=== PATIENT | female | born 1965 | race Caucasian/White ===

== ENCOUNTER 2017-01-05 11:17 | Observation (INO) | payer OTHER ==
[~2017-01-05] VITALS: Ht 165.1 cm; Wt 78.0 kg
[2017-01-05] VITALS (8 sets, daily range): BP systolic 121–179; BP diastolic 71–113; PULSE 90–153; RESP 16–26; TEMP 97.7–98.1; O2SAT 95–99
[~2017-01-05 11:17] MED LIST: ASPI-99 PO; ATOR80TA41 PO; LISI2.5T55 PO; METO25CR PO; NITR.4 SL
[2017-01-05] MEDS ORDERED: ASPIRIN 325 MG TAB PO ONE (11:30)
[2017-01-05] MEDS ORDERED: SODIUM CHLORIDE 0.9% FLUSH 10 ML FLUSH IVF PRN (11:30)
[2017-01-05] MEDS ORDERED: NITROGLYCERIN 0.4 MG SL 25 TABS/BTL SL ONE (11:45)
--- NOTE | 2017-01-05 12:18 | RADRPT ---
EXAM DATE/TIME: 01/05/2017 11:41 [facility] COMPARISON: CHEST SINGLE AP, February 09, 2013, 0:58. INDICATIONS : Chest pain. MEDICAL HISTORY : Hypertension. SURGICAL HISTORY : Coronary artery stent. ENCOUNTER: Initial ACUITY: 2 days PAIN SCORE: 6/10 LOCATION: Left upper chest FINDINGS: A single view of the chest demonstrates the lungs to be symmetrically aerated without evidence of mas s, infiltrate or effusion. The cardiomediastinal contours are unremarkable. Osseous structures are intact. CONCLUSION: 1. No acute cardiopulmonary findings Xavier Kellogg MD on January 05, 2017 at 12:15 Board Certified Radiologist. This report was verified electronically.
--- NOTE | 2017-01-05 12:19 | PD ---
HPI Chief Complaint: Chest Pain Time Seen by Provider: 12:16 Travel History International Travel<30 days: No Contact w/Intl Traveler<30days: No Traveled to known affect area: No History of Present Illness HPI 51-year-old female that presents to the ED for evaluation of left-sided chest pain. Per patient she's had this for the past 2 days. Per patient the pain started the last couple days and his been on and off. Per patient last and for now and then he went better. Per patient today the pain started around 3:00 this morning and his been unrelenting since. She has not seen her doctor for this but she follows with Dr. Wallace for cardiology. Per patient she had an evaluation by him last year and everything was fine. She does have a history of HI on herself. No history of smoking. History of high blood pressure and patient currently taking statins for cholesterol. Patient also takes an aspirin every day. She has not taken any nitroglycerin or aspirin today. Per patient the pain is sharp and pressure-like. Nothing makes it better or worse. Patient does have some shortness of breath and diaphoresis. Per patient he feels very similar to her previous HI. She came here today mainly because the pain has not gone away as the previous pain she had before this episode since 2: 00 in the morning. Allergy to penicillin. Pain is 7 out of 10. PFSH Past Medical History Hx Anticoagulant Therapy: Yes (BABY ASPIRIN ) Asthma: No Blood Disorders: No Heart Rhythm Problems: No Cancer: No Cardiac Catheterization: Yes Cardiovascular Problems: Yes (HTN , STENT , CAD ) High Cholesterol: Yes Chest Pain: Yes Congestive Heart Failure: No COPD: No Coronary Artery Disease: Yes Diabetes: No Diminished Hearing: No Endocrine: No Genitourinary: No Hypertension: Yes Immune Disorder: No Musculoskeletal: No Neurologic: No Psychiatric: No Reproductive: No Respiratory: No Myocardial Infarction: Yes Sleep Apnea: No Menopausal: Yes Past Surgical History Cardiac Surgery: Yes (CARDIAC CATH) Section: Yes (X 1) Coronary Stent: Yes Gynecologic Surgery: Yes () Other Surgery: Yes (C SECTION, STENT) Social History Alcohol Use: Yes (EVERY 2 WEEKS) Tobacco Use: Yes (2 CIG PER DAY) Substance Use: No Allergies-Medications (Allergen,Severity, Reaction): Coded Allergies: Penicillin (Verified Allergy, Unknown, UNKNOWN, 02/09/13) Reported Meds & Prescriptions Reported Meds & Active Scripts Active Reported Lipitor 80 Mg Tab (Atorvastatin) 80 Mg Tab 80 Mg PO DAILY Aspirin 81 Mg Tab 81 Mg PO DAILY Nitroglycerin 0.4 Mg Subl 0.4 Mg SL DIRECTED PRN Metoprolol Succinate Er (Metoprolol Succinate) 25 Mg Tab 50 Mg PO BID Lisinopril 2.5 Mg Tab 2.5 Mg PO DAILY Review of Systems Except as stated in HPI: all other systems reviewed are Neg Physical Exam Narrative GENERAL: SKIN: Warm and dry. HEAD: Atraumatic. Normocephalic. EYES: Pupils equal and round. No scleral icterus. No injection or drainage. ENT: No nasal bleeding or discharge. Mucous membranes pink and moist. Tongue is midline. No uvula deviation. NECK: Trachea midline. No JVD. CARDIOVASCULAR: Regular rate and rhythm. No murmurs, S3, S4. Chest pain is not reproducible with touch. RESPIRATORY: No accessory muscle use. Clear to auscultation. Breath sounds equal bilaterally. GASTROINTESTINAL: Abdomen soft, non-tender, nondistended. Hepatic and splenic margins not palpable. MUSCULOSKELETAL: Extremities without clubbing, cyanosis, or edema. No obvious deformities. Full range of motion of the upper and lower extremities bilaterally. 2+ pulses bilaterally. NEUROLOGICAL: Awake and alert. No obvious cranial nerve deficits. Motor grossly within normal limits. Five out of 5 muscle strength in the arms and legs. Normal speech. PSYCHIATRIC: Appropriate mood and affect; insight and judgment normal. Data Data Last Documented VS Vital Signs Date Time Temp Pulse Resp B/P Pulse Ox O2 Delivery O2 Flow Rate FiO2 01/05/17 12:07 165/85 129/82 01/05/17 11:48 90 16 98 Room Air 01/05/17 11:20 97.7 Orders Electrocardiogram (01/05/17 11:26) Basic Metabolic Panel (Bmp) (01/05/17 11:26) B-Type Natriuretic Peptide (01/05/17 11:26) Ckmb (Isoenzyme) Profile (01/05/17 11:26) Complete Blood Count With Diff (01/05/17 11:26) Magnesium (Mg) (01/05/17 11:26) Prothrombin Time / Inr (Pt) (01/05/17 11:26) Act Partial Throm Time (Ptt) (01/05/17 11:26) Troponin I (01/05/17 11:26) Chest, Single Ap (01/05/17 11:26) Ecg Monitoring (01/05/17 11:26) Bilateral Bp Monitoring (01/05/17 11:26) Iv Access Insert/Monitor (01/05/17 11:26) Oximetry (01/05/17 11:26) Oxygen Administration (01/05/17 11:26) Aspirin (Aspirin) (01/05/17 11:30) Sodium Chloride 0.9% Flush (Ns Flush) (01/05/17 11:30) Nitroglycerin Sl (Nitrostat Sl) (01/05/17 11:45) Morphine Inj (Morphine Inj) (01/05/17 12:45) Ondansetron Inj (Zofran Inj) (01/05/17 12:45) Admit Order (Ed Use Only) (01/05/17 13:09) Labs Laboratory Tests Test 01/05/17 11:50 White Blood Count 9.3 TH/MM3 Red Blood Count 4.67 MIL/MM3 Hemoglobin 14.9 GM/DL Hematocrit 43.5 % Mean Corpuscular Volume 93.2 FL Mean Corpuscular Hemoglobin 31.9 PG Mean Corpuscular Hemoglobin 34.3 % Concent Red Cell Distribution Width 13.1 % Platelet Count 267 TH/MM3 Mean Platelet Volume 8.2 FL Neutrophils (%) (Auto) 60.7 % Lymphocytes (%) (Auto) 26.8 % Monocytes (%) (Auto) 9.1 % Eosinophils (%) (Auto) 2.8 % Basophils (%) (Auto) 0.6 % Neutrophils # (Auto) 5.7 TH/MM3 Lymphocytes # (Auto) 2.5 TH/MM3 Monocytes # (Auto) 0.9 TH/MM3 Eosinophils # (Auto) 0.3 TH/MM3 Basophils # (Auto) 0.1 TH/MM3 CBC Comment DIFF FINAL Differential Comment Prothrombin Time 10.9 SEC Prothromb Time International 1.0 RATIO Ratio Activated Partial 28.0 SEC Thromboplast Time Sodium Level 137 MEQ/L Potassium Level 4.2 MEQ/L Chloride Level 103 MEQ/L Carbon Dioxide Level 27.4 MEQ/L Anion Gap 7 MEQ/L Blood Urea Nitrogen 10 MG/DL Creatinine 0.68 MG/DL Estimat Glomerular Filtration 91 ML/MIN Rate Random Glucose 100 MG/DL Calcium Level 9.2 MG/DL Magnesium Level 1.9 MG/DL Total Creatine Kinase 99 U/L Troponin I LESS THAN 0.02 NG/ML B-Type Natriuretic Peptide 6 PG/ML MDM Medical Decision Making Medical Screen Exam Complete: Yes Emergency Medical Condition: Yes Medical Record Reviewed: Yes Interpretation(s) EKG shows sinus rhythm with no sign of acute ischemia or arrythmia CBC & BMP Diagram 01/05/17 11:50 BNP WNL Troponin and CKMB negative Last Impressions Chest X-Ray 01/05/17 1126 Signed Impressions: Service Date/Time: Thursday, January 05, 2017 11:41 - CONCLUSION: 1. No acute cardiopulmonary findings Xavier Kellogg MD Differential Diagnosis Chest pain versus a typical chest pain versus ACS versus a typical chest pain versus acute on chronic pain Narrative Course 51-year-old female that presents to the ED for evaluation of chest pain. Patient was properly examined and was found to have signs and symptoms of unclear etiology. Patient does partially have multiple risk factors for ACS including previous history. Labs and imaging ordered. Patient was given aspirin as well as nitroglycerin here. Labs and imaging showed no sign of acute disease. Patient was reassured. Patient feels improvement of her pain after medications given. Case was discussed with Dr. Wallace who recommends admission to the chest pain center. Patient was admitted chest pain center. Patient agrees with this plan. Diagnosis Primary Impression: Chest pain in adult Iam Wharton Jan 05, 2017 12:19
[2017-01-05 12:26] LABS: AUTOMATED NEUTROPHIL # 5.7 TH/MM3 (1.8-7.7); BASOPHIL # 0.1 TH/MM3 (0-0.2); BASOPHIL % 0.6 % (0.0-2.0); EOSINOPHIL # 0.3 TH/MM3 (0-0.4); EOSINOPHIL % 2.8 % (0.0-4.0); HEMATOCRIT 43.5 % (35.0-46.0); HEMO FLAGS DIFF FINAL; LYMPH % 26.8 % (9.0-44.0); LYMPHOCYTE # 2.5 TH/MM3 (1.0-4.8); MEAN CELL VOLUME 93.2 FL (80.0-100.0); MEAN CORPUSCULAR HEMOGLOBIN 31.9 PG (27.0-34.0); MEAN CORPUSCULAR HGB CONC 34.3 % (32.0-36.0); MONO % 9.1 % (0.0-8.0); NEUT % 60.7 % (16.0-70.0); PLATELET COUNT 267 TH/MM3 (150-450); RED BLOOD COUNT 4.67 MIL/MM3 (4.00-5.30); RED CELL DISTRIBUTION WIDTH 13.1 % (11.6-17.2); WHITE BLOOD COUNT 9.3 TH/MM3 (4.0-11.0)
[2017-01-05 12:35] LABS: PROTHROMBIN TIME - PATIENT 10.9 SEC (9.8-11.6)
[2017-01-05] MEDS ORDERED: ONDANSETRON HCL 4 MG/2 ML VIAL IV PUSH ONE (12:45)
[2017-01-05] MEDS ORDERED: MORPHINE SULFATE 4 MG/ML INJ IV PUSH ONE (12:45)
[2017-01-05 12:51] LABS: ANION GAP 7 MEQ/L (5-15)
[2017-01-05 12:57] LABS: BICARBONATE 27.4 MEQ/L (21.0-32.0); BLOOD UREA NITROGEN 10 MG/DL (7-18); CHLORIDE 103 MEQ/L (98-107); CREATINE KINASE 99 U/L (26-192); GLOMERULAR FILTRATION RATE 91 ML/MIN (>89); MAGNESIUM 1.9 MG/DL (1.5-2.5); POTASSIUM 4.2 MEQ/L (3.5-5.1); SODIUM (NA) 137 MEQ/L (136-145)
[2017-01-05] MEDS ORDERED: SODIUM CHLORIDE 0.9% FLUSH 5 ML FLUSH IVF PRN (14:15)
[2017-01-05] MEDS ORDERED: ALPRAZolam 0.25 MG TAB PO PRN (14:15)
[2017-01-05] MEDS ORDERED: ACETAMINOPHEN 500 MG CPLT PO PRN (14:15)
[2017-01-05] MEDS ORDERED: ONDANSETRON HCL 4 MG/2 ML VIAL IV PRN (14:15)
[2017-01-05] MEDS ORDERED: ACETAMINOPHEN/HYDROcodone 325 MG/7.5 MG TAB PO PRN (14:15)
[2017-01-05] MEDS ORDERED: METO50TA PO (14:36)
[2017-01-05] MEDS ORDERED: LISI2.5T3 PO (14:36)
[2017-01-05] MEDS ORDERED: PILL SPLITTER OTHER PRN (15:00)
--- NOTE | 2017-01-05 15:07 | HHI.HP ---
HPI Primary Care Physician Non-Staff Chief Complaint Chest pain History of Present Illness This is a 51-year-old female with history of CAD and stenting September 2010 with a complaint of chest discomfort. She states that for the last 2 days she has had intermittent central chest pressure. This is not exertional. She found nothing to bring on. The discomfort would last bout 1 hour but would recur about every 1-2 hours over the last 2 days. The discomfort woke her up at 3:00 this morning and has been constant since. The worse level was about 6-8 out of 10. She had shortness of breath. No nausea or diaphoresis. She states she was given sublingual nitroglycerin in the ED and after the second dose was starting to feel better. Currently the discomfort is about a 1-2 out of 10. She is concerned saying it feels similar to when she had a myocardial infarction in 2010. She states she has been compliant with all her medications. She is still smoking. She follows Dr. Mert Wallace of cardiology and believes her last stress test was a few years ago. She states that that was normal. Denies recent illnesses. Denies fevers or chills. Denies recent travel. Review of Systems General: Patient denies fevers, chills recent, and recent travel. HEENT: Patient denies headache, sore throat, difficulty swallowing. Cardiovascular: Has the chest discomfort as mentioned above. Denies sensation of heart beating rapidly or irregularly. No syncope. Denies diaphoresis. Respiratory: She has been a little short of breath. Denies Inspirational chest discomfort. Denies coughing wheezing or hemoptysis. GI: Patient denies nausea, vomiting, diarrhea, abdominal pain, bloody stools. Musculoskeletal: Patient denies joint pain or edema. Denies calf pain or edema. Neurovascular: Patient denies numbness, tingling, weakness in extremities. Denies headache. Endocrine: Denies polyuria and polydipsia. Hematologic: Denies easy bruising. Skin: Denies rash or itching. Past Family Social History Allergies: Coded Allergies: Penicillin (Verified Allergy, Unknown, UNKNOWN, 02/09/13) Past Medical History Coronary artery disease with a myocardial infarction September 29, 2010 with stenting of the RCA. Hypertension, hyperlipidemia, tobacco abuse. Denies diabetes Past Surgical History Cardiac catheterization with stenting of the RCA. There is moderate disease of the LAD. . Reported Medications Reported Meds & Active Scripts Active Reported Lisinopril 2.5 Mg Tab 2.5 Mg PO HS Metoprolol Tartrate 50 Mg Tab 50 Mg PO BID Lipitor 80 Mg Tab (Atorvastatin) 80 Mg Tab 80 Mg PO DAILY Aspirin 81 Mg Tab 81 Mg PO DAILY Nitroglycerin Tab 0.4 Mg Sl (Nitroglycerin) 0.4 Mg Subl 0.4 Mg SL DIRECTED PRN Active Ordered Medications Current Medications Medications (Trade) Dose Ordered Sig/Nelda Route Start Time Stop Time Status Last Admin (NS Flush) 2 ml UNSCH PRN IVF 01/05/17 14:15 (NS Flush) 2 ml BID IVF 01/05/17 21:00 (Tylenol) 500 mg Q4H PRN PO 01/05/17 14:15 (Flaxton 7.5-325 Mg) 1 tab Q4H PRN PO 01/05/17 14:15 (Zofran Inj) 4 mg Q6H PRN IV 01/05/17 14:15 (Protonix) 40 mg DAILY PO 01/05/17 14:15 (Aspirin) 325 mg DAILY PO 01/06/17 09:00 (Xanax) 0.25 mg Q8H PRN PO 01/05/17 14:15 (Nitroglycerin 2% Oint) 1 inch Q6HR TOPICAL 01/05/17 14:30 (Lipitor) 80 mg DAILY PO 01/06/17 09:00 (Lopressor) 50 mg BID PO 01/05/17 21:00 (Prinivil) 2.5 mg HS PO 01/05/17 21:00 (Pill Splitter) 1 ea UNSCH PRN OTHER 01/05/17 15:00 Family History There is family history of CAD with her brother. He has a stent. Social History Patient is smoking about 1/4 pack of cigarettes daily for about 30 years. Physical Exam Vital Signs Vital Signs Date Time Temp Pulse Resp B/P Pulse Ox O2 Delivery O2 Flow Rate FiO2 01/05/17 12:07 165/85 129/82 01/05/17 11:48 90 16 165/85 98 Room Air 01/05/17 11:48 98 Room Air 01/05/17 11:48 98 Room Air 01/05/17 11:20 97.7 102 26 179/113 99 Physical Exam GENERAL: This is a well-nourished, well-developed patient, in no apparent distress. Patient speaks in clear complete sentences. Patient is pleasant. There is family at the bedside. HEENT: Head is atraumatic and normocephalic. Neck is supple without lymphadenopathy and trachea is midline. No JVD or carotid bruits. CARDIOVASCULAR: Regular rate and rhythm without murmurs, gallops, or rubs. RESPIRATORY: Clear to auscultation. Breath sounds equal bilaterally. No wheezes , rales, or rhonchi. Chest wall is nontender. No use of accessory muscles. GASTROINTESTINAL: Abdomen is nontender, nondistended. Abdomen soft. No obvious pulsatile mass or bruit. No CVA tenderness. Strong femoral pulses bilaterally. Normal bowel sounds in all quadrants. MUSCULOSKELETAL: Patient is moving upper and lower extremities freely. No calf tenderness or edema, no Homans sign. Strong pulses in upper and lower extremities. NEUROLOGICAL: Patient is alert and oriented. Cranial nerves 2-12 are grossly intact. No focal deficits and speech is clear. SKIN: No rash and turgor is normal. Laboratory Laboratory Tests Test 01/05/17 11:50 White Blood Count 9.3 Red Blood Count 4.67 Hemoglobin 14.9 Hematocrit 43.5 Mean Corpuscular Volume 93.2 Mean Corpuscular Hemoglobin 31.9 Mean Corpuscular Hemoglobin 34.3 Concent Red Cell Distribution Width 13.1 Platelet Count 267 Mean Platelet Volume 8.2 Neutrophils (%) (Auto) 60.7 Lymphocytes (%) (Auto) 26.8 Monocytes (%) (Auto) 9.1 Eosinophils (%) (Auto) 2.8 Basophils (%) (Auto) 0.6 Neutrophils # (Auto) 5.7 Lymphocytes # (Auto) 2.5 Monocytes # (Auto) 0.9 Eosinophils # (Auto) 0.3 Basophils # (Auto) 0.1 CBC Comment DIFF FINAL Differential Comment Prothrombin Time 10.9 Prothromb Time International 1.0 Ratio Activated Partial 28.0 Thromboplast Time Sodium Level 137 Potassium Level 4.2 Chloride Level 103 Carbon Dioxide Level 27.4 Anion Gap 7 Blood Urea Nitrogen 10 Creatinine 0.68 Estimat Glomerular Filtration 91 Rate Random Glucose 100 Calcium Level 9.2 Magnesium Level 1.9 Total Creatine Kinase 99 Troponin I LESS THAN 0.02 B-Type Natriuretic Peptide 6 Result Diagram: 01/05/17 1150 01/05/17 1150 Imaging Last 48 hours Impressions Chest X-Ray 01/05/17 1126 Signed Impressions: Service Date/Time: Thursday, January 05, 2017 11:41 - CONCLUSION: 1. No acute cardiopulmonary findings Xavier Kellogg MD Course Initial EKG is sinus rhythm rate of [address] segment depressions or elevations. Assessment and Plan Assessment and Plan * Chest pain: Patient does it history of CAD and has had a stent in 2010. She will continue to have serial cardiac enzymes and EKGs for ruling out purposes. Patient has been seen by Dr. Mert Wallace of cardiology in the chest pain center. She will likely have a nuclear ETT in the morning if she rules out. We will start nitroglycerin ointment. We will continue her medications. * Hypertension: Continue current medication. * Hyperlipidemia: Continue current medication. * CAD: This will be reassessed for stress testing likely. * Tobacco abuse: Patient has been counseled on importance of smoking cessation. Patient is stable at this time. She is agreeable to this plan. Orlando Doe Jan 05, 2017 15:07 [place] Doe Jan 05, 2017 15:07
[2017-01-05 16:32] LABS: CREATINE KINASE 85 U/L (26-192)
[2017-01-05] MEDS: NITROGLYCERIN 2% OINT 1 GM PACKET TOPICAL SCH ×2 (18:00→20:12)
--- NOTE | 2017-01-05 18:18 | EKG ---
Date Performed: 01/05/2017 Time Performed: 11:32:57 PTAGE: 51 years EKG: Sinus rhythm NORMAL ECG NO PREVIOUS TRACING DOCTOR: Ray Nash Interpretating Date/Time 01/05/2017 18:16:50
[2017-01-05 19:04] LABS: CREATINE KINASE 78 U/L (26-192)
[2017-01-05] MEDS ORDERED: LISINOPRIL 5 MG TAB PO SCH (21:00)
[2017-01-05] MEDS: SODIUM CHLORIDE 0.9% FLUSH 5 ML FLUSH IVF SCH (21:00)
[2017-01-05] MEDS: METOPROLOL TARTRATE 50 MG TAB PO SCH (21:14)
[2017-01-05] MEDS ORDERED: MORPHINE SULFATE 4 MG/ML INJ IV PUSH PRN (22:30)
[2017-01-06] VITALS (7 sets, daily range): BP systolic 119–124; BP diastolic 67–79; PULSE 79–90; RESP 16–18; TEMP 97.9–98.4; O2SAT 95–97
[2017-01-06] MEDS: NITROGLYCERIN 2% OINT 1 GM PACKET TOPICAL SCH ×2 (06:00)
[2017-01-06] MEDS: METOPROLOL TARTRATE 50 MG TAB PO SCH ×2 (07:53→11:43)
[2017-01-06 08:34] LABS: CREATINE KINASE 68 U/L (26-192)
[2017-01-06] MEDS: ATORVASTATIN 80 MG TAB PO SCH ×2 (09:00→11:44)
[2017-01-06] MEDS: SODIUM CHLORIDE 0.9% FLUSH 5 ML FLUSH IVF SCH (09:00)
[2017-01-06] MEDS: PANTOPRAZOLE SOD 40 MG DELAYED RELEASE TAB PO SCH ×2 (09:00→11:44)
[2017-01-06] MEDS ORDERED: ASPIRIN 325 MG TAB PO SCH (09:00)
--- NOTE | 2017-01-06 11:42 | RADRPT ---
EXAM DATE/TIME: 01/06/2017 08:52 [facility] COMPARISON: MYOCARDIAL PERF TREADMILL SPECT, GATED W/EF, February 09, 2013, 14:18. INDICATIONS : Mid chest pain for two days. Angina Coronary artery disease. DOSE: 25.9 mCi Tc99m Myoview at stress 8.7 mCi Tc99m Myoview at rest REST HEART RATE: 100 BPM TARGET HEART RATE: 144 BPM MAX HEART RATE: 156 BPM REST BLOOD PRESSURE: 132/82 mmHg MAX BLOOD PRESSURE: none EJECTION FRACTION: > 70% MEDICAL HISTORY : Hypertension. Myocardial infarction. SURGICAL HISTORY : Coronary artery stent. section. ENCOUNTER: Initial ACUITY: 2 days PAIN SCALE: 5/10 LOCATION: Midsternal chest TECHNIQUE: The patient underwent upright treadmill exercise in the chest pain center. Continuous ECG tracing wa s monitored during stress. Gated SPECT imaging was performed after stress, and conventional SPECT im aging was performed at rest. The examination was performed on a SPECT/CT scanner, both attenuation-c orrected and non-corrected datasets were reviewed. FINDINGS: DISTRIBUTION: The maximum perfused segment at stress is in the anterolateral wall. PERFUSION STUDY: The pattern of perfusion at stress is within normal limits. GATED STUDY: There is intact wall motion and thickening without hypokinetic or dyskinetic segments. CONCLUSION: 1. No reversible perfusion defect to indicate stress-induced myocardial ischemia identified. RISK CATEGORY: Low (<1% Annual Mortality Rate) Xavier Kellogg MD on January 06, 2017 at 11:39 Board Certified Radiologist. This report was verified electronically.
--- NOTE | 2017-01-06 11:49 | HHI.DCPOC ---
Discharge Care Plan Diagnosis: (1) Chest pain (2) CAD (coronary artery disease) (3) H/O heart artery stent (4) Tobacco abuse (5) Hypertension (6) Hyperlipidemia (7) SVT (supraventricular tachycardia) Goals to Promote Your Health * To prevent worsening of your condition and complications * To maintain your health at the optimal level Directions to Meet Your Goals Take your medications as prescribed Follow your dietary instruction Follow activity as directed Keep your appointments as scheduled Take your immunizations and boosters as scheduled If your symptoms worsen call your PCP, if no PCP go to Urgent Care Center or Emergency Room Smoking is Dangerous to Your Health. Avoid second hand smoke Call the 24-hour hour crisis hotline for domestic abuse at [place] Doe Jan 06, 2017 11:49
[2017-01-06] MEDS ORDERED: METO100T PO (12:06)
--- NOTE | 2017-01-08 14:29 | EKG ---
Date Performed: 01/05/2017 Time Performed: 15:40:26 PTAGE: 51 years EKG: Sinus rhythm NORMAL ECG PREVIOUS TRACING : 02/09/2013 17.45 Since previous tracing, no significant change noted DOCTOR: Mert Wallace Interpretating Date/Time 01/08/2017 14:26:52
--- NOTE | 2017-01-08 14:29 | EKG ---
Date Performed: 01/05/2017 Time Performed: 20:08:00 PTAGE: 51 years EKG: SINUS TACHYCARDIA ABNORMAL RHYTHM ECG PREVIOUS TRACING : 01/05/2017 15.40 Since previous tracing, no significant change noted DOCTOR: Mert Wallace Interpretating Date/Time 01/08/2017 14:26:20
--- NOTE | 2017-01-08 14:33 | TR ---
Date Performed: 01/06/2017 Time Performed: 10:03:13 DOCTOR: Mert Wallace DRUG LIST: CLINICAL HISTORY: CHEST PAIN REASON FOR TEST: Chest pain REASON FOR ENDING: OBSERVATION: CONCLUSION: NUC ETT. NO CP.Maximum JU=971 % Max HR Achieved=93.0% % Target HR Achieved=93.0% Tot al Exercise Time=3:46 COMMENTS: Patient exercised using the Ankit protocol. No electrocardiographic changes were seen to suggest ischemia. Hemodynamic response to exercise was normal. No significant arrhythmia was prese nt.
== END 2017-01-06 13:09 | disposition home or self-care (01) ==
LOC: NEPC 11:17 → NEDA 13:12 → NEPGCP 15:46
PROVIDERS: ADMIT Internal Medicine Interventional Cardiology; ATTEND Internal Medicine Interventional Cardiology
DX: R07.89 Other chest pain (principal); I25.10 Atherosclerotic heart disease of native coronary artery without angina pectoris; I10 Essential (primary) hypertension; E78.5 Hyperlipidemia, unspecified; E78.00 Pure hypercholesterolemia, unspecified; I25.2 Old myocardial infarction; F17.210 Nicotine dependence, cigarettes, uncomplicated; Z88.0 Allergy status to penicillin; Z95.5 Presence of coronary angioplasty implant and graft; Z79.82 Long term (current) use of aspirin
CPT/HCPCS: 71010; 78452; 80048; 82550; 83735; 83880; 84484; 85025; 85379; 85610; 85730; 93005; 93017; 99285; A9502; G0378

== ENCOUNTER 2017-03-23 02:31 | Emergency (ER) | payer OTHER ==
[~2017-03-23 02:31] MED LIST changes: +LISI2.5T3 PO; -LISI2.5T55 PO; +METO100T PO; -METO25CR PO
[2017-03-23] MEDS ORDERED: IOHEXOL 350 MG/ML 10 ML VIAL (for RAD DIAG) IVCONTRAST ONE (02:32)
[2017-03-23 02:33] VITALS: BP 187/90; PULSE 99; RESP 16; TEMP 97.7; O2SAT 99
--- NOTE | 2017-03-23 03:17 | PD ---
HPI Chief Complaint: GI Complaint Time Seen by Provider: 03:06 Travel History International Travel<30 days: No Contact w/Intl Traveler<30days: No Traveled to known affect area: No History of Present Illness HPI The patient is a 52 year old female who presents to the [facility] emergency department with a history of abdominal pain recurred around noon today. The patient reports that over the summertime she's had 3-4 episodes of this type of pain in the midepigastric area. She reports that this time the pain has been persistent. She reports that she's had nausea and vomiting 7 today. She denies having any diarrhea. Her last bowel movement was earlier today. She denies having any blood in her stool or black or tarry stools. She does report having intermittent indigestion, however she denies taking any medication for this. She had n/v x7. She has not been evaluated for this previously. She denies having any recent known fevers, cough, congestion, neck pain, chest pain, shortness of breath, urinary symptoms, or neurologic symptoms. Her Pcp is Dr. Bangura. [facility] Past Medical History Narrative Medical The patient's past medical history is significant for coronary artery disease status post myocardial infarction in September 2010 status post stent placement in RCA, hypertension, hyperlipidemia, tobacco abuse. The patient last had a stress test done on January 05, 2017 which was negative. Hx Anticoagulant Therapy: Yes (BABY ASPIRIN ) Asthma: No Blood Disorders: No Heart Rhythm Problems: No Cancer: No Cardiac Catheterization: Yes Cardiovascular Problems: Yes (HTN , STENT , CAD ) High Cholesterol: Yes Chest Pain: Yes Congestive Heart Failure: No COPD: No Coronary Artery Disease: Yes Diabetes: No Diminished Hearing: No Endocrine: No Genitourinary: No Hypertension: Yes Immune Disorder: No Musculoskeletal: No Neurologic: No Psychiatric: No Reproductive: No Respiratory: No Myocardial Infarction: Yes Sleep Apnea: No Tetanus Vaccination: Never Vaccinated ?: Not Menopausal: Yes Past Surgical History Narrative Surgical The patient's past surgical history is significant for a cardiac cath with RCA stent placement and a . Cardiac Surgery: Yes (CARDIAC CATH) Section: Yes (X 1) Coronary Stent: No Gynecologic Surgery: Yes (C section ) Other Surgery: Yes (C SECTION, STENT) Social History Alcohol Use: No Tobacco Use: Yes Substance Use: No Allergies-Medications (Allergen,Severity, Reaction): Coded Allergies: penicillin G (Unverified Allergy, Unknown, UNKNOWN, 03/09/17) Reported Meds & Prescriptions Reported Meds & Active Scripts Active Metoprolol Tartrate 100 Mg Tab 100 Mg PO BID Reported Lisinopril 2.5 Mg Tab 2.5 Mg PO HS Lipitor 80 Mg Tab (Atorvastatin) 80 Mg Tab 80 Mg PO DAILY Aspirin 81 Mg Tab 81 Mg PO DAILY Nitroglycerin Tab 0.4 Mg Sl (Nitroglycerin) 0.4 Mg Subl 0.4 Mg SL DIRECTED PRN Review of Systems Except as stated in HPI: all other systems reviewed are Neg General / Constitutional: No: Fever Eyes: No: Visual changes HENT: No: Headaches Cardiovascular: No: Chest Pain or Discomfort Respiratory: No: Shortness of Breath Gastrointestinal: Positive: Nausea, Vomiting, Abdominal Pain, Indigestion, No: Hematochezia, Constipation, Changes in Bowel Habits, Loss of Appetite Genitourinary: No: Dysuria Musculoskeletal: No: Pain Skin: No Rash Neurologic: No: Weakness Psychiatric: No: Depression Endocrine: No: Polydipsia Hematologic/Lymphatic: No: Easy Bruising Physical Exam Narrative General: The patient is a well-developed well-nourished female in no acute distress Head and Neck exam: Head is normocephalic atraumatic. Eyes: EOMI, pupils are equal round and reactive to light. Nose: Midline septum with pink mucous membranes Mouth: Dentition unremarkable. Moist mucus membranes. Posterior oropharynx is not erythematous. No tonsillar hypertrophy. Uvula midline. Airway patent. Neck: No palpable lymphadenopathy. No nuchal rigidity. No thyromegaly. Cardiovascular: Regular rate and rhythm without murmurs, gallops, or rubs. No pulse deficit to the extremities and simultaneous auscultation and palpation of her radial artery. Lungs: Clear to auscultation bilaterally. No wheezes, rhonchi, or rales. Abdomen: Soft, with tenderness on palpation in the midepigastric and left upper quadrant of the abdomen. No other tenderness on palpation of the other quadrants of the abdomen No guarding, rebound, or rigidity. Negative Phan's sign. Normal bowel sounds are audible. Extremities: No clubbing, cyanosis, or edema. 2+ pulses in all 4 extremities. No calf tenderness on palpation. Back: No costovertebral angle tenderness to palpation. Neurologic Exam: Grossly nonfocal. Skin Exam: No rash noted. Intact skin that is warm and dry. Data Data Last Documented VS Vital Signs Date Time Temp Pulse Resp B/P (MAP) Pulse Ox O2 Delivery O2 Flow Rate FiO2 03/23/17 03:21 18 99 Room Air 03/23/17 02:33 97.7 99 Orders Orders Complete Blood Count With Diff (03/23/17 03:14) Comprehensive Metabolic Panel (03/23/17 03:14) Lipase (03/23/17 03:14) Urinalysis - C+S If Indicated (03/23/17 03:14) Iv Access Insert/Monitor (03/23/17 03:14) Ecg Monitoring (03/23/17 03:14) Oximetry (03/23/17 03:14) Ct Abd/Pel W Iv Contrast(Rout) (03/23/17 04:20) Sodium Chlor 0.9% 1000 Ml Inj (Ns 1000 M (03/23/17 04:30) Ondansetron Inj (Zofran Inj) (03/23/17 04:30) Pantoprazole Inj (Protonix Inj) (03/23/17 04:30) Iohexol 350 Inj (Omnipaque 350 Inj) (03/23/17 02:32) Labs Laboratory Tests Test 03/23/17 03:22 03/23/17 03:25 Urine Color YELLOW Urine Turbidity HAZY Urine pH 5.5 Urine Specific [place] 1.023 Urine Protein NEG mg/dL Urine Glucose (UA) NEG mg/dL Urine Ketones NEG mg/dL Urine Occult Blood TRACE Urine Nitrite NEG Urine Bilirubin NEG Urine Urobilinogen LESS THAN 2.0 MG/DL Urine Leukocyte Esterase TRACE Urine RBC 2 /hpf Urine WBC 5 /hpf Urine Squamous Epithelial Cells 2 /hpf Urine Mucus FEW /lpf Microscopic Urinalysis Comment CULT NOT INDICATED White Blood Count 13.4 TH/MM3 Red Blood Count 4.61 MIL/MM3 Hemoglobin 14.4 GM/DL Hematocrit 43.1 % Mean Corpuscular Volume 93.4 FL Mean Corpuscular Hemoglobin 31.3 PG Mean Corpuscular Hemoglobin Concent 33.5 % Red Cell Distribution Width 13.3 % Platelet Count 301 TH/MM3 Mean Platelet Volume 7.0 FL Neutrophils (%) (Auto) 67.9 % Lymphocytes (%) (Auto) 21.1 % Monocytes (%) (Auto) 8.6 % Eosinophils (%) (Auto) 2.0 % Basophils (%) (Auto) 0.4 % Neutrophils # (Auto) 9.1 TH/MM3 Lymphocytes # (Auto) 2.8 TH/MM3 Monocytes # (Auto) 1.1 TH/MM3 Eosinophils # (Auto) 0.3 TH/MM3 Basophils # (Auto) 0.1 TH/MM3 CBC Comment DIFF FINAL Differential Comment Blood Urea Nitrogen 10 MG/DL Creatinine 0.72 MG/DL Random Glucose 141 MG/DL Total Protein 7.6 GM/DL Albumin 3.4 GM/DL Calcium Level 8.7 MG/DL Alkaline Phosphatase 91 U/L Aspartate Amino Transf (AST/SGOT) 35 U/L Alanine Aminotransferase (ALT/SGPT) 78 U/L Total Bilirubin 0.5 MG/DL Sodium Level 138 MEQ/L Potassium Level 3.9 MEQ/L Chloride Level 103 MEQ/L Carbon Dioxide Level 25.5 MEQ/L Anion Gap 10 MEQ/L Estimat Glomerular Filtration Rate 85 ML/MIN Lipase 195 U/L [facility] Medical Decision Making Medical Screen Exam Complete: Yes Emergency Medical Condition: Yes Medical Record Reviewed: Yes Interpretation(s) Last Impressions Abdomen/Pelvis CT 03/23/17 0420 Signed Impressions: Service Date/Time: Thursday, March 23, 2017 04:34 - CONCLUSION: 1. No acute finding is identified to explain the clinical symptoms. 2. There is an 18 mm lesion in the right lobe of the liver. Although incompletely characterized imaging features strongly favor a diagnosis of a hemangioma. 3. Nonacute findings include small hiatal hernia and mild atherosclerotic disease. Chilango Shaw MD Differential Diagnosis Acute pancreatitis, versus acute cholecystitis, versus biliary colic, versus acid reflux, versus esophagitis, versus peptic ulcer disease, versus gastritis Narrative Course During the course of the patients emergency department visit, the patients history, examination, and differential diagnosis were reviewed with the patient. The patient had IV access obtained and blood work sent for analysis. The patient was placed on a school lunch monitor with oximetry and blood pressure monitoring. The patient was initially provided normal saline IV fluids, Protonix 40 mg IV, and Zofran 4 mg IV. The patients laboratory studies were reviewed and remarkable for a white count of 13.4, hemoglobin 14.4, platelets 301 with 8.6 monocytes. CMP is remarkable for a GFR of 85, glucose 141, ALT 78, lipase 195, urinalysis shows trace occult blood, trace leukocyte esterase, 2 squamous epithelial cells, culture not indicated Radiology studies were reviewed and remarkable for a CT scan of the abdomen and pelvis shows no acute findings to explain the patient's current clinical symptoms. An 18 mm lesion in the right lobe of the liver is noted that favors a diagnosis of hemangioma. Nonacute findings include a small hiatal hernia and mild atherosclerotic disease. The patient's symptoms appear to be related to a combination of acid reflux and a suspected viral syndrome given the patient's monocytosis at 8.6. The patient will be discharged home with a prescription for Zofran and omeprazole. The patient is resting comfortably and feels better, is alert and in no distress. The patients results and examination findings were discussed with the patient. The repeat examination is unremarkable and benign. The history, exam, diagnostic testing, and current condition do not suggest any significant pathology to warrant further testing, continued ED treatment, admission, or surgical evaluation at this point. The vital signs have been stable. The patient does not have uncontrollable pain, intractable vomiting, or other significant symptoms. The patient's condition is stable and appropriate for discharge. The patient will pursue further outpatient evaluation with a primary care physician or other designated or consulting physician as indicated in the discharge instructions. The patient expressed understanding and was agreeable with this plan. Diagnosis Primary Impression: Abdominal pain Qualified Codes: R10.84 - Generalized abdominal pain Additional Impressions: Vomiting Qualified Codes: R11.2 - Nausea with vomiting, unspecified Gastroesophageal reflux Qualified Codes: K21.9 - Gastro-esophageal reflux disease without esophagitis Referrals: Primary Care Physician 2 days Patient Instructions: Abdominal Pain (ED), Acute Nausea and Vomiting (ED), Gastroesophageal Reflux Disease (ED), General Instructions Med/Other Pt SpecificInfo: Prescription(s) given Scripts Omeprazole (Omeprazole) 40 Mg Cap 40 MG PO DAILY, #14 CAP 0 Refills Prov: Candy Grimm MD 03/23/17 Ondansetron Odt (Zofran Odt) 4 Mg Tab 4 MG SL Q6HR Y for Nausea/Vomiting, #7 TAB 0 Refills Prov: Candy Grimm MD 03/23/17 Disposition: DISCHARGE HOME Condition: Stable Candy Grimm MD Mar 23, 2017 03:17
[2017-03-23 03:21] VITALS: RESP 18; O2SAT 99
[2017-03-23 03:48] LABS: AUTOMATED NEUTROPHIL # 9.1 TH/MM3 (1.8-7.7); BASOPHIL # 0.1 TH/MM3 (0-0.2); BASOPHIL % 0.4 % (0.0-2.0); EOSINOPHIL # 0.3 TH/MM3 (0-0.4); HEMATOCRIT 43.1 % (35.0-46.0); HEMO FLAGS DIFF FINAL; LYMPH % 21.1 % (9.0-44.0); LYMPHOCYTE # 2.8 TH/MM3 (1.0-4.8); MEAN CELL VOLUME 93.4 FL (80.0-100.0); MEAN CORPUSCULAR HEMOGLOBIN 31.3 PG (27.0-34.0); MEAN CORPUSCULAR HGB CONC 33.5 % (32.0-36.0); MONO % 8.6 % (0.0-8.0); NEUT % 67.9 % (16.0-70.0); PLATELET COUNT 301 TH/MM3 (150-450); RED BLOOD COUNT 4.61 MIL/MM3 (4.00-5.30); RED CELL DISTRIBUTION WIDTH 13.3 % (11.6-17.2); WHITE BLOOD COUNT 13.4 TH/MM3 (4.0-11.0)
[2017-03-23 04:02] LABS: BLOOD, URINE TRACE (NEG); COMMENT (UR) CULT NOT INDICATED; CULTURE IF INDICATED CULT NOT INDICATED; GLUCOSE,URINE NEG (NEG); KETONE, URINE NEG (NEG); MUCUS URINE FEW /lpf (OCC); NITRITE,URINE NEG (NEG); PH, URINE 5.5 (5.0-8.5); SQUAMOUS EPITHELIAL CELL URINE 2 /hpf (0-5); URINE COLOR YELLOW (YELLW/STRAW)
[2017-03-23 04:14] LABS: ALT (GPT) 78 U/L (10-53); ANION GAP 10 MEQ/L (5-15); AST (GOT) 35 U/L (15-37); BICARBONATE 25.5 MEQ/L (21.0-32.0); BLOOD UREA NITROGEN 10 MG/DL (7-18); CHLORIDE 103 MEQ/L (98-107); GLOMERULAR FILTRATION RATE 85 ML/MIN (>89); POTASSIUM 3.9 MEQ/L (3.5-5.1); SODIUM (NA) 138 MEQ/L (136-145)
[2017-03-23 04:17] LABS: ALKALINE PHOSPHATASE 91 U/L (45-117); TOTAL BILIRUBIN ADULT 0.5 MG/DL (0.2-1.0)
[2017-03-23] MEDS ORDERED: ONDANSETRON HCL 4 MG/2 ML VIAL IV ONE (04:30)
[2017-03-23] MEDS ORDERED: SODIUM CHLOR 0.9% 1000 ML INJ 1,000 ML IV ONE (04:30)
[2017-03-23] MEDS ORDERED: PANTOPRAZOLE SODIUM 40 MG VIAL IV PUSH ONE (04:30)
--- NOTE | 2017-03-23 04:49 | RADRPT ---
EXAM DATE/TIME: 03/23/2017 04:34 [facility] COMPARISON: No previous studies available for comparison. INDICATIONS : Epigastric pain radiating to left side. IV CONTRAST: 97 cc Omnipaque 350 (iohexol) IV ORAL CONTRAST: No oral contrast ingested. RADIATION DOSE: 9.81 CTDIvol (mGy) MEDICAL HISTORY : Myocardial infarction. Cardiovascular disease Hypertension.Coronary artery disease. SURGICAL HISTORY : section. ENCOUNTER: Initial ACUITY: 1 day PAIN SCALE: 8/10 LOCATION: medial abdomen TECHNIQUE: Volumetric scanning of the abdomen and pelvis was performed. Using automated exposure control and ad justment of the mA and/or kV according to patient size, radiation dose was kept as low as reasonably achievable to obtain optimal diagnostic quality images. DICOM format image data is available electro nically for review and comparison. FINDINGS: LOWER LUNGS: The visualized lower lungs are clear. LIVER: Homogeneous density with hypodense lesion measuring 18 mm in the medial right lobe adjacent to the IV C. It demonstrates peripheral nodular enhancement. There is no dilation of the biliary tree. No king cified gallstones. SPLEEN: Normal size without lesion. PANCREAS: Within normal limits. KIDNEYS: Normal in size and shape. There is no mass, stone or hydronephrosis. ADRENAL GLANDS: Within normal limits. VASCULAR: There is no aortic aneurysm. There is atherosclerotic disease of the infrarenal aorta and there is ca lcification in the right coronary artery. BOWEL/MESENTERY: The stomach, small bowel, and colon demonstrate no acute abnormality. There is no free intraperitone al air or fluid. A small hiatal hernia is present. ABDOMINAL WALL: Within normal limits. RETROPERITONEUM: There is no lymphadenopathy. BLADDER: No wall thickening or mass. REPRODUCTIVE: Within normal limits. INGUINAL: There is no lymphadenopathy or hernia. MUSCULOSKELETAL: No acute abnormality. CONCLUSION: 1. No acute finding is identified to explain the clinical symptoms. 2. There is an 18 mm lesion in the right lobe of the liver. Although incompletely characterized imagi ng features strongly favor a diagnosis of a hemangioma. 3. Nonacute findings include small hiatal hernia and mild atherosclerotic disease. Chilango Shaw MD on March 23, 2017 at 4:44 Board Certified Radiologist. This report was verified electronically.
[2017-03-23] MEDS ORDERED: ZOFR4TAB3 SL (05:28)
[2017-03-23] MEDS ORDERED: OMEP40CA2 PO (05:28)
[2017-03-23] MEDS ORDERED: ACETAMINOPHEN 325 MG TAB PO ONE (05:45)
[2017-03-23 06:07] VITALS: BP 134/70; PULSE 71; RESP 18; O2SAT 98
== END 2017-03-23 06:08 | disposition home or self-care (01) ==
LOC: NEPC 02:31
DX: R10.84 Generalized abdominal pain (principal); R11.2 Nausea with vomiting, unspecified; K21.9 Gastro-esophageal reflux disease without esophagitis; K44.9 Diaphragmatic hernia without obstruction or gangrene; I25.10 Atherosclerotic heart disease of native coronary artery without angina pectoris; I25.2 Old myocardial infarction; I10 Essential (primary) hypertension; E78.5 Hyperlipidemia, unspecified; E78.00 Pure hypercholesterolemia, unspecified
CPT/HCPCS: 74177; 80053; 81001; 83690; 85025; 96361; 96374; 96375; 99285; C9113; J2405; J7030; Q9967

== ENCOUNTER 2017-05-31 11:09 | Inpatient (IN) | payer OTHER ==
[~2017-05-31] VITALS: Ht 165.1 cm; Wt 76.4 kg
[~2017-05-31 11:09] MED LIST changes: +OMEP40CA2 PO; +ZOFR4TAB3 SL
[2017-05-31] MEDS ORDERED: IOHEXOL 350 MG/ML 10 ML VIAL (for RAD DIAG) IVCONTRAST ONE (11:10)
[2017-05-31 11:11] VITALS: BP 126/83; PULSE 121; PULSE 24; RESP 22; TEMP 99.2; O2SAT 99
[2017-05-31 12:09] LABS: AUTOMATED NEUTROPHIL # 10.7 TH/MM3 (1.8-7.7); BASOPHIL % 0.3 % (0.0-2.0); EOSINOPHIL # 0.1 TH/MM3 (0-0.4); EOSINOPHIL % 0.5 % (0.0-4.0); HEMATOCRIT 40.4 % (35.0-46.0); HEMO FLAGS DIFF FINAL; LYMPH % 14.9 % (9.0-44.0); LYMPHOCYTE # 2.2 TH/MM3 (1.0-4.8); MEAN CELL VOLUME 91.5 FL (80.0-100.0); MEAN CORPUSCULAR HEMOGLOBIN 30.9 PG (27.0-34.0); MEAN CORPUSCULAR HGB CONC 33.8 % (32.0-36.0); MONO % 10.7 % (0.0-8.0); NEUT % 73.6 % (16.0-70.0); PLATELET COUNT 512 TH/MM3 (150-450); RED BLOOD COUNT 4.41 MIL/MM3 (4.00-5.30); WHITE BLOOD COUNT 14.5 TH/MM3 (4.0-11.0)
[2017-05-31 12:16] LABS: APTT (PATIENT) 29.2 SEC (24.3-30.1)
[2017-05-31 12:25] LABS: ALT (GPT) 24 U/L (10-53); ANION GAP 10 MEQ/L (5-15); AST (GOT) 22 U/L (15-37); BICARBONATE 25.1 MEQ/L (21.0-32.0); BLOOD UREA NITROGEN 10 MG/DL (7-18); CHLORIDE 99 MEQ/L (98-107); GLOMERULAR FILTRATION RATE 89 ML/MIN (>89); POTASSIUM 4.1 MEQ/L (3.5-5.1); SODIUM (NA) 134 MEQ/L (136-145)
[2017-05-31 12:27] LABS: ALKALINE PHOSPHATASE 82 U/L (45-117); TOTAL BILIRUBIN ADULT 0.4 MG/DL (0.2-1.0)
[2017-05-31] MEDS ORDERED: ASPI81TA23 PO (12:52)
[2017-05-31] MEDS ORDERED: OMEP40CA2 PO (12:52)
[2017-05-31] MEDS ORDERED: ATOR80TA45 PO (12:52)
[2017-05-31] MEDS ORDERED: DICY20TA10 PO (12:53)
[2017-05-31 13:39] LABS: BACTERIA, URINE RARE /hpf; BLOOD, URINE NEG (NEG); CALCIUM OXALATE CRYSTALS,URINE RARE /hpf; COMMENT (UR) CULT NOT INDICATED; CULTURE IF INDICATED CULT NOT INDICATED; GLUCOSE,URINE NEG (NEG); HYALINE CAST, URINE 7 /lpf (RARE); KETONE, URINE 40 mg/dL (NEG); MUCUS URINE MANY /lpf (OCC); NITRITE,URINE NEG (NEG); PH, URINE 5.5 (5.0-8.5); SQUAMOUS EPITHELIAL CELL URINE 1 /hpf (0-5); URINE COLOR YELLOW (YELLW/STRAW)
--- NOTE | 2017-05-31 14:06 | PD ---
HPI . Abdominal pain Chief Complaint: Abdominal Pain Time Seen by Provider: 13:23 Travel History International Travel<30 days: No Contact w/Intl Traveler<30days: No Traveled to known affect area: No History of Present Illness HPI This patient presents complaining with abdominal pain. She describes diffuse bloating abdominal pain. She reports that she has had it for a couple of months but it has been worse for the last couple weeks. She describes it as feeling as if her stomach is about to explode. Pain is exacerbated by walking and breathing. She rates the pain 10/10. She did with loose stools. No fever. No urinary tract symptoms. Urinating makes her abdomen hurt worse. She states she has been seen here for the abdominal pain and has also been seen by a horse breeder. She states that the etiology of the abdominal pain has not yet been discovered. She states that she has even had an MRI of her abdomen. PFSH Past Medical History Hx Anticoagulant Therapy: Yes (BABY ASA) Asthma: No Blood Disorders: No Heart Rhythm Problems: No Cancer: No Cardiac Catheterization: Yes Cardiovascular Problems: Yes (OK WITH STENT) High Cholesterol: Yes Chest Pain: Yes Congestive Heart Failure: No COPD: No Coronary Artery Disease: Yes Diabetes: Yes Patient Takes Glucophage: No Diminished Hearing: No Endocrine: No Genitourinary: No Heparin Induced Thrombocytopen: No Hypertension: Yes Immune Disorder: No Musculoskeletal: No Neurologic: No Psychiatric: No Reproductive: No Respiratory: No Myocardial Infarction: Yes Sleep Apnea: No Influenza Vaccination: No ?: Not Menopausal: Yes Past Surgical History Cardiac Surgery: Yes (CARDIAC CATH) Section: Yes (X 1) Coronary Stent: No Gynecologic Surgery: Yes (C section ) Other Surgery: Yes (C SECTION, STENT) Family History Family Myocardial Infarction: Yes Social History Alcohol Use: No Tobacco Use: Yes (5 cigs/day) Substance Use: No Allergies-Medications (Allergen,Severity, Reaction): Coded Allergies: penicillin G (Unverified Allergy, Unknown, UNKNOWN, 05/31/17) Reported Meds & Prescriptions Reported Meds & Active Scripts Active Metoprolol Tartrate 100 Mg Tab 100 Mg PO BID Reported Dicyclomine (Dicyclomine HCl) Unknown Strength Tab Unknown Dose PO TID PRN Omeprazole 40 Mg Cap 40 Mg PO HS PRN Atorvastatin (Atorvastatin Calcium) 80 Mg Tab 80 Mg PO HS Aspirin EC (Aspirin) 81 Mg Tabdr 81 Mg PO HS Lisinopril 2.5 Mg Tab 2.5 Mg PO HS Review of Systems Except as stated in HPI: all other systems reviewed are Neg General / Constitutional: No: Fever, Chills Gastrointestinal: Positive: Diarrhea, Abdominal Pain, Loss of Appetite, No: Constipation Genitourinary: No: Urgency, Frequency, Dysuria Physical Exam Narrative GENERAL: Patient is moaning and hyperventilating. SKIN: warm/dry. Normal color and capillary refill. HEAD: Normocephalic. Atraumatic. EYES: Pupils equal and round. No scleral icterus. No injection or drainage. ENT: No nasal bleeding or discharge. Mucous membranes pink and moist. NECK: Trachea midline. Full range of motion without pain.. CARDIOVASCULAR: Regular rate and rhythm. Heart sounds are normal. RESPIRATORY: No accessory muscle use. Clear to auscultation. Breath sounds equal bilaterally. GASTROINTESTINAL: Abdomen soft. Diffusely tender. Bowel sounds present. Distended. Does not look like ascites. MUSCULOSKELETAL: No obvious deformities. NEUROLOGICAL: Awake and alert. No obvious cranial nerve deficits. Motor grossly within normal limits. Normal speech. PSYCHIATRIC: Appropriate mood and affect; insight and judgment normal. Data Data Last Documented VS Vital Signs Date Time Temp Pulse Resp B/P (MAP) Pulse Ox O2 Delivery O2 Flow Rate FiO2 05/31/17 16:00 117 16 162/81 (108) 98 Room Air 05/31/17 11:11 99.2 Orders Orders Complete Blood Count With Diff (05/31/17 11:19) Comprehensive Metabolic Panel (05/31/17 11:19) Lipase (05/31/17 11:19) Prothrombin Time / Inr (Pt) (05/31/17 11:19) Act Partial Throm Time (Ptt) (05/31/17 11:19) Urinalysis - C+S If Indicated (05/31/17 11:19) Ct Abd/Pel W Iv Contrast(Rout) (05/31/17 14:03) Drug Screen, Random Urine (05/31/17 14:03) Dicyclomine Inj (Bentyl Inj) (05/31/17 14:15) Iohexol 350 Inj (Omnipaque 350 Inj) (05/31/17 11:10) Admit To Inpatient (05/31/17 ) Code Status (05/31/17 15:57) Vital Signs (Adult) Q4H (05/31/17 15:57) Activity Oob With Assistance (05/31/17 15:57) Diet Regular Basic (05/31/17 Dinner) Sodium Chloride 0.9% Flush (Ns Flush) (05/31/17 16:00) Sodium Chloride 0.9% Flush (Ns Flush) (05/31/17 21:00) Ondansetron Inj (Zofran Inj) (05/31/17 16:00) Temazepam (Restoril) (05/31/17 16:00) Basic Metabolic Panel (Bmp) (06/01/17 06:00) Complete Blood Count With Diff (06/01/17 06:00) Chest, Pa & Lat (05/31/17 15:57) Electrocardiogram (05/31/17 15:57) Pt Request For Service (05/31/17 15:57) Scd Bilateral/Knee High BRITTNEE.BID (05/31/17 15:57) Naloxone Inj (Narcan Inj) (05/31/17 16:00) Magnesium Hydroxide Liq (Milk Of Magnesi (05/31/17 16:00) Inpatient Certification (05/31/17 ) Aspirin Ec (Ecotrin Ec) (05/31/17 21:00) Metoprolol Tartrate (Lopressor) (05/31/17 21:00) (Nf) Lisinopril (05/31/17 21:00) Pantoprazole (Protonix) (06/01/17 09:00) Dicyclomine (Bentyl) (05/31/17 18:00) Atorvastatin (Lipitor) (05/31/17 21:00) Us Guided Abd Paracentesis (05/31/17 ) Peritoneal Cell Count + Diff (05/31/17 16:06) Total Protein Peritoneal Fluid (05/31/17 16:06) Albumin, Peritoneal Fluid (05/31/17 16:06) Glucose, Peritoneal Fluid (05/31/17 16:06) Ldh, Peritoneal Fluid (05/31/17 16:06) Amylase, Peritoneal Fluid (05/31/17 16:06) Fluid Culture And Gram Stain (05/31/17 16:06) Cytology Request For Service (05/31/17 16:06) Total Protein (05/31/17 16:06) Ldh Serum (05/31/17 16:06) Prothrombin Time / Inr (Pt) (05/31/17 16:06) Cbc No Diff, Includes Plts (05/31/17 16:06) Act Partial Throm Time (Ptt) (05/31/17 16:06) Consult Gastroenterology (05/31/17 ) Admit Order (Ed Use Only) (05/31/17 16:11) Labs Laboratory Tests Test 05/31/17 11:42 05/31/17 12:55 White Blood Count 14.5 TH/MM3 Red Blood Count 4.41 MIL/MM3 Hemoglobin 13.7 GM/DL Hematocrit 40.4 % Mean Corpuscular Volume 91.5 FL Mean Corpuscular Hemoglobin 30.9 PG Mean Corpuscular Hemoglobin Concent 33.8 % Red Cell Distribution Width 13.0 % Platelet Count 512 TH/MM3 Mean Platelet Volume 7.5 FL Neutrophils (%) (Auto) 73.6 % Lymphocytes (%) (Auto) 14.9 % Monocytes (%) (Auto) 10.7 % Eosinophils (%) (Auto) 0.5 % Basophils (%) (Auto) 0.3 % Neutrophils # (Auto) 10.7 TH/MM3 Lymphocytes # (Auto) 2.2 TH/MM3 Monocytes # (Auto) 1.5 TH/MM3 Eosinophils # (Auto) 0.1 TH/MM3 Basophils # (Auto) 0.0 TH/MM3 CBC Comment DIFF FINAL Differential Comment Prothrombin Time 11.0 SEC Prothromb Time International Ratio 1.0 RATIO Activated Partial Thromboplast Time 29.2 SEC Blood Urea Nitrogen 10 MG/DL Creatinine 0.69 MG/DL Random Glucose 93 MG/DL Total Protein 7.9 GM/DL Albumin 2.8 GM/DL Calcium Level 9.1 MG/DL Alkaline Phosphatase 82 U/L Aspartate Amino Transf (AST/SGOT) 22 U/L Alanine Aminotransferase (ALT/SGPT) 24 U/L Total Bilirubin 0.4 MG/DL Sodium Level 134 MEQ/L Potassium Level 4.1 MEQ/L Chloride Level 99 MEQ/L Carbon Dioxide Level 25.1 MEQ/L Anion Gap 10 MEQ/L Estimat Glomerular Filtration Rate 89 ML/MIN Lipase 115 U/L Urine Color YELLOW Urine Turbidity HAZY Urine pH 5.5 Urine Specific [place] 1.035 Urine Protein 30 mg/dL Urine Glucose (UA) NEG mg/dL Urine Ketones 40 mg/dL Urine Occult Blood NEG Urine Nitrite NEG Urine Bilirubin NEG Urine Urobilinogen 2.0 MG/DL Urine Leukocyte Esterase NEG Urine RBC 12 /hpf Urine WBC 4 /hpf Urine Squamous Epithelial Cells 1 /hpf Urine Calcium Oxalate Crystals RARE /hpf Urine Bacteria RARE /hpf Urine Hyaline Casts 7 /lpf Urine Mucus MANY /lpf Microscopic Urinalysis Comment CULT NOT INDICATED Urine Opiates Screen NEG Urine Barbiturates Screen NEG Urine Amphetamines Screen NEG Urine Benzodiazepines Screen NEG Urine Cocaine Screen NEG Urine Cannabinoids Screen NEG MDM Medical Decision Making Medical Screen Exam Complete: Yes Emergency Medical Condition: Yes Differential Diagnosis Differential diagnosis of abdominal pain includes but is not limited to gastritis, pancreatitis, hepatitis, gastroenteritis, gallbladder disease, constipation, urinary retention, UTI, peptic ulcer disease, diverticulitis or appendicitis Narrative Course This patient presents complaining with abdominal pain and bloating. CBC & BMP Diagram 05/31/17 11:42 Total Protein 7.9, Albumin 2.8 L, Calcium Level 9.1, Alkaline Phosphatase 82, Aspartate Amino Transf (AST/SGOT) 22, Alanine Aminotransferase (ALT/SGPT) 24, Total Bilirubin 0.4 CT of her abdomen is pending. UA>>12 RBCs, 4 WBCs, rare calcium oxalate crystals, rare bact, many mucous. Last Impressions Abdomen/Pelvis CT 05/31/17 1403 Signed Impressions: Service Date/Time: Wednesday, May 31, 2017 14:41 - CONCLUSION: Ascites appears complex new from 03/23/17. Other than liver disease I don't see an etiology for such. If paracentesis is contemplated fluid should be sent for cytology. Tom Kellogg MD FACR I will admit the patient for further evaluation. Physician Communication Physician Communication Dr. Hoover will admit for further evaluation and treatment. Diagnosis Primary Impression: Abdominal pain Qualified Codes: R10.84 - Generalized abdominal pain Additional Impression: Ascites Qualified Codes: R18.8 - Other ascites Admitting Information Admitting Physician Requests: Admit Condition: Stable Jeanine Monterroso MD May 31, 2017 14:06
[2017-05-31] MEDS ORDERED: DICYCLOMINE HCL 20 MG/2 ML VIAL IM ONE (14:15)
--- NOTE | 2017-05-31 15:24 | RADRPT ---
EXAM DATE/TIME: 05/31/2017 14:41 This report includes an Addendum and supersedes previous reports for this exam. [facility] COMPARISON: CT ABDOMEN & PELVIS W CONTRAST, March 23, 2017, 4:34. INDICATIONS : Lower difuse abdomen pain for two weeks. IV CONTRAST: 76 cc Omnipaque 350 (iohexol) IV ORAL CONTRAST: No oral contrast ingested. RADIATION DOSE: 10.83 CTDIvol (mGy) MEDICAL HISTORY : Cardiovascular disease. Hypertension. Diabetes SURGICAL HISTORY : section. ENCOUNTER: Initial ACUITY: 2 weeks PAIN SCALE: 9/10 LOCATION: Abdomen TECHNIQUE: Volumetric scanning of the abdomen and pelvis was performed. Using automated exposure control and ad justment of the mA and/or kV according to patient size, radiation dose was kept as low as reasonably achievable to obtain optimal diagnostic quality images. DICOM format image data is available electro nically for review and comparison. FINDINGS: The lung base is are clear. Moderate ascites is evident The liver somewhat small and is free of focal defects The spleen, pancreas and adrenals unremarkable Moderate ascites is present in the pelvis. There is no adnexal mass. There is moderate mesenteric edema. The portal vein appears patent. There is symmetrical renal function I don't see definite peritoneal implants. CONCLUSION: Ascites appears complex new from 03/23/17. Other than liver disease I don't see an etiology for such . If paracentesis is contemplated fluid should be sent for cytology. Tom Kellogg MD FACR on May 31, 2017 at 15:19 Board Certified Radiologist. This report was verified electronically. ADDENDUM: The above was reviewed. Of note, the patient is a stable 2 cm lesion in the medial aspect of the righ t hepatic lobe which shows rim enhancement, most characteristic of a benign hemangioma. Re\re aeratin g the above, there is stranding in the omentum which appears to be isolated. There is no associated a nasarca or fluid in the mesenteric leaves. This appears to be a process isolated to the omentum itsel f. Although there are no discrete soft tissue lesions, findings could represent an interstitial or ly mphatic type neoplastic process. Omental biopsy could be considered for further characterization. Jonathan Adame MD on June 03, 2017 at 16:10 Board Certified Radiologist. This report was verified electronically.
[2017-05-31 16:00] VITALS: BP 162/81; PULSE 117; RESP 16; O2SAT 98
[2017-05-31] MEDS ORDERED: NALOXONE HCL 0.4 MG/ML AMP IV PUSH PRN (16:00)
[2017-05-31] MEDS ORDERED: MAGNESIUM HYDROXIDE SUSP 30 ML CUP PO PRN (16:00)
--- NOTE | 2017-05-31 16:11 | HHI.HP ---
HPI Service [facility] Hospitalists Primary Care Physician Kevin Mei MD Admission Diagnosis Abdominal pain, new onset ascites Chief Complaint: Abdominal pain and distension Travel History International Travel<30 Days: No Contact w/Intl Traveler <30 Da: No Traveled to Known Affected Are: No History of Present Illness Mrs. Vicente is a pleasant 52 y/o WF with HTN, hyperlipidemia, borderline diabetes and CAD with hx of NSETMI s/p stent to RCA in 2010. Pt presented to the ED with complaints of worsening abdominal pain and distension. She states that she has been having issues with abd pain for the last 2 months. She was seen in the ED on 03/[address] abd/pelvis at that time noted an 18mm lesion in the right lobe of the liver, with features favoring hemangioma. She was sent for followup as an outpt with GI. She had an MRI Abdomen W/O Contrast ( 05/13/17) with benign hemangioma in the caudate lobe of the liver corresponding to the lesion identified on CT otherwise normal examination. Outpt workup with GI in April 2017 revealed positive ASMA, positive RACHELE, and RODRIGUEZ FibroSURE with fibrosis score of 0.04 (No fibrosis), Steatosis score of 0.78/S3 (marked or severe steatosis). Viral Hepatitis was negative. IgG subclasses were WNL, LKM Ab negative, AMA negative, Iron studies WNL, Ferritin 160 (slightly elevated ), Ceruloplasmin WNL. Labs on 05/12/17 with AST 54, ALT 81, AlkPhos 92, Tbili 0.8, DBili 0.2. Pt was ordered to have EGD/colonoscopy and liver biopsy but these have not been done yet. Pt reports that over the last 2 weeks she has been having increased generalized abd pain and distension which has been significantly worse over the last 2 days. This prompted her evaluation in the ED today. She has not been eating or drinking much over the last 2 days. In the ED CT Abd/pelvis revealed ascites appears complex and new from 03/23/17. She denies any nausea or vomiting. Denies any fevers or chills. Pt has been moving her bowels but seems to have occasionally diarrhea and occasionally constipation. Denies any melena or BRBPR. Pt denies any regular alcohol use. Denies any chest pain, SOB, palpitations, dizziness or focal weakness. Review of Systems Constitutional: DENIES: Fever, Chills Eyes: DENIES: Vision loss Ears, nose, mouth, throat: DENIES: Hearing loss Respiratory: DENIES: Cough, Shortness of breath Cardiovascular: DENIES: Chest pain, Palpitations, Lower Extremity Edema Gastrointestinal: COMPLAINS OF: Abdominal pain, Constipation, Diarrhea, Anorexia, See HPI, DENIES: Black stools, Bloody stools, Nausea, Vomiting Musculoskeletal: DENIES: Back pain, Neck pain Integumentary: DENIES: Rash Neurologic: DENIES: Headache Psychiatric: DENIES: Confusion, Depression Past Family Social History Past Medical History HTN CAD and hx of NSTEMI in 2011 Hyperlipidemia Hepatic hemangioma RODRIGUEZ Past Surgical History PTCA with stent placement in RCA in 2011 Cesarian section x 1 Reported Medications Metoprolol Tartrate 100 Mg Tab 100 Mg PO BID Dicyclomine (Dicyclomine HCl) Unknown Strength Tab Unknown Dose PO TID PRN Omeprazole 40 Mg Cap 40 Mg PO HS PRN Atorvastatin (Atorvastatin Calcium) 80 Mg Tab 80 Mg PO HS Aspirin EC (Aspirin) 81 Mg Tabdr 81 Mg PO HS Lisinopril 2.5 Mg Tab 2.5 Mg PO HS Allergies: Coded Allergies: penicillin G (Unverified Allergy, Unknown, UNKNOWN, 05/31/17) Family History Father from metastatic colon cancer Social History (+)Tobacco use Occasional social alcohol use Pt is , lives locally 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 HEENT: Atraumatic. Normocephalic. No temporal or scalp tenderness. No scleral icterus. Airway patent. NECK: Trachea midline, supple, nontender. CARDIO: Regular RESP: CTA bilaterally. No wheezes, rales, or rhonchi. ABD: +BS, distended, diffusely tender with palpation. No guarding. EXT: Extremities without clubbing, cyanosis, or edema. NEURO: Awake and alert. Motor and sensory grossly within normal limits. Normal speech. Laboratory Laboratory Tests Test 05/31/17 11:42 05/31/17 12:55 White Blood Count 14.5 Red Blood Count 4.41 Hemoglobin 13.7 Hematocrit 40.4 Mean Corpuscular Volume 91.5 Mean Corpuscular Hemoglobin 30.9 Mean Corpuscular Hemoglobin Concent 33.8 Red Cell Distribution Width 13.0 Platelet Count 512 Mean Platelet Volume 7.5 Neutrophils (%) (Auto) 73.6 Lymphocytes (%) (Auto) 14.9 Monocytes (%) (Auto) 10.7 Eosinophils (%) (Auto) 0.5 Basophils (%) (Auto) 0.3 Neutrophils # (Auto) 10.7 Lymphocytes # (Auto) 2.2 Monocytes # (Auto) 1.5 Eosinophils # (Auto) 0.1 Basophils # (Auto) 0.0 CBC Comment DIFF FINAL Differential Comment Prothrombin Time 11.0 Prothromb Time International Ratio 1.0 Activated Partial Thromboplast Time 29.2 Blood Urea Nitrogen 10 Creatinine 0.69 Random Glucose 93 Total Protein 7.9 Albumin 2.8 Calcium Level 9.1 Alkaline Phosphatase 82 Aspartate Amino Transf (AST/SGOT) 22 Alanine Aminotransferase (ALT/SGPT) 24 Total Bilirubin 0.4 Sodium Level 134 Potassium Level 4.1 Chloride Level 99 Carbon Dioxide Level 25.1 Anion Gap 10 Estimat Glomerular Filtration Rate 89 Lipase 115 Urine Color YELLOW Urine Turbidity HAZY Urine pH 5.5 Urine Specific [place] 1.035 Urine Protein 30 Urine Glucose (UA) NEG Urine Ketones 40 Urine Occult Blood NEG Urine Nitrite NEG Urine Bilirubin NEG Urine Urobilinogen 2.0 Urine Leukocyte Esterase NEG Urine RBC 12 Urine WBC 4 Urine Squamous Epithelial Cells 1 Urine Calcium Oxalate Crystals RARE Urine Bacteria RARE Urine Hyaline Casts 7 Urine Mucus MANY Microscopic Urinalysis Comment CULT NOT INDICATED Urine Opiates Screen NEG Urine Barbiturates Screen NEG Urine Amphetamines Screen NEG Urine Benzodiazepines Screen NEG Urine Cocaine Screen NEG Urine Cannabinoids Screen NEG Result Diagram: 05/31/17 1142 05/31/17 1142 Imaging Last Impressions Chest X-Ray 05/31/17 1557 Signed Impressions: Service Date/Time: Wednesday, May 31, 2017 16:05 - CONCLUSION: No acute disease. Ivan Lowe MD Abdomen/Pelvis CT 05/31/17 1403 Signed Impressions: Service Date/Time: Wednesday, May 31, 2017 14:41 - CONCLUSION: Ascites appears complex new from 03/23/17. Other than liver disease I don't see an etiology for such. If paracentesis is contemplated fluid should be sent for cytology. Tom Kellogg MD FACR Septic Shock Reassessment Heart: Other Lungs: Clear Skin: Warm Caprini VTE Risk Assessment Caprini VTE Risk Assessment: No/Low Risk (score <= 1) Caprini Risk Assessment Model Point Value = 1 Point Value = 2 Point Value = 3 Point Value = 5 Age 41-60 Minor surgery BMI > 25 kg/m2 Swollen legs Varicose veins or History of unexplained or recurrent spontaneous Oral contraceptives or hormone replacement Sepsis (< 1 month) Serious lung disease, including pneumonia (< 1 month) Abnormal pulmonary function Acute myocardial infarction Congestive heart failure (< 1 month) History of inflammatory bowel disease Medical patient at bed rest Age 61-74 Arthroscopic surgery Major open surgery (> 45 min) Laparoscopic surgery (> 45 min) Malignancy Confined to bed (> 72 hours) Immobilizing plaster cast Central venous access Age >= 75 History of VTE Family history of VTE Factor V Leiden Prothrombin [id number] Lupus anticoagulant Anticardiolipin antibodies Elevated serum homocysteine Heparin-induced thrombocytopenia Other congenital or acquired thrombophilia Stroke (< 1 month) Elective arthroplasty Hip, pelvis, or leg fracture Acute spinal cord injury (< 1 month) Prophylaxis Regimen Total Risk Factor Score Risk Level Prophylaxis Regimen 0-1 Low Early ambulation 2 Moderate Order ONE of the following: *Sequential Compression Device (SCD) *Heparin 5000 units SQ BID 3-4 Higher Order ONE of the following medications: *Heparin 5000 units SQ TID *Enoxaparin/Lovenox 40 mg SQ daily (WT < 150 kg, CrCl > 30 mL/min) *Enoxaparin/Lovenox 30 mg SQ daily (WT < 150 kg, CrCl > 10-29 mL/min) *Enoxaparin/Lovenox 30 mg SQ BID (WT < 150 kg, CrCl > 30 mL/min) AND/OR *Sequential Compression Device (SCD) 5 or more Highest Order ONE of the following medications: *Heparin 5000 units SQ TID (Preferred with Epidurals) *Enoxaparin/Lovenox 40 mg SQ daily (WT < 150 kg, CrCl > 30 mL/min) *Enoxaparin/Lovenox 30 mg SQ daily (WT < 150 kg, CrCl > 10-29 mL/min) *Enoxaparin/Lovenox 30 mg SQ BID (WT < 150 kg, CrCl > 30 mL/min) AND *Sequential Compression Device (SCD) Assessment and Plan Problem List: (1) Abdominal pain ICD Codes: R10.9 - Unspecified abdominal pain Status: Acute Plan: - 52 y/o WF with HTN, hyperlipidemia, borderline diabetes and CAD with hx of NSETMI s/p stent to RCA in 2010. - Pt presented to the ED with complaints of worsening abdominal pain and distension. She states that she has been having issues with abd pain for the last 2 months. For the last 2 weeks she has been having increased generalized abd pain and distension which has been significantly worse over the last 2 days. - CT Abd/pelvis revealed ascites appears complex and new from 03/23/17. - She was previously seen in the ED on 03/[address] abd/pelvis at that time noted an 18mm lesion in the right lobe of the liver, with features favoring hemangioma. She was sent for followup as an outpt with GI. She had an MRI Abdomen W/O Contrast (05/13/17) with benign hemangioma in the caudate lobe of the liver corresponding to the lesion identified on CT otherwise normal examination. - Outpt workup with GI in April 2017 revealed positive ASMA, positive RACHELE, and RODRIGUEZ FibroSURE with fibrosis score of 0.04 (No fibrosis), Steatosis score of 0.78/S3 (marked or severe steatosis). Viral Hepatitis was negative. IgG subclasses were WNL, LKM Ab negative, AMA negative, Iron studies WNL, Ferritin 160 (slightly elevated), Ceruloplasmin WNL. Labs on 05/12/17 with AST 54, ALT 81, AlkPhos 92, Tbili 0.8 , DBili 0.2. - Pt was ordered to have EGD/colonoscopy and liver biopsy but these have not been done yet. - We will order diagnostic and therapeutic paracentesis - Fluid to be sent for cell count, cytology, glucose, albumin, total protein - Consult GI - Pain control PRN - Gentle IVF as pt is tachycardic in the ED likely secondary to pain and dehydration - Home meds resumed for BP control - Her statin was held as an outpt due to elevated LFTs - Supportive care - DVT prophylaxis with SCDs (2) Ascites ICD Codes: R18.8 - Other ascites Status: Acute Plan: - See above (3) Hypertension ICD Codes: I10 - Essential (primary) hypertension Status: Acute Plan: - Home meds resumed - Monitor (4) Hyperlipidemia ICD Codes: E78.5 - Hyperlipidemia, unspecified Status: Acute Plan: - Statin was held as an outpt (5) CAD (coronary artery disease) ICD Codes: I25.10 - Atherosclerotic heart disease of [place] coronary artery without angina pectoris Status: Acute Plan: - Pt with hx of CAD and NSTEMI in 2010 s/p stent in the RCA (6) Tobacco abuse ICD Codes: Z72.0 - Tobacco use Status: Acute Assessment and Plan Patient examined. Assessment and plan formulated with Rosemary Fong PA-C. I agree with the above. Physician Certification 2 Midnight Certification Type: Admission for Inpatient Services Order for Inpatient Services The services are ordered in accordance with Medicare regulations or non- Medicare payer requirements, as applicable. In the case of services not specified as inpatient-only, they are appropriately provided as inpatient services in accordance with the 2-midnight benchmark. Estimated LOS (days): 3 3 days is the estimated time the patient will need to remain in the hospital, assuming treatment plan goals are met and no additional complications. Post-Hospital Plan: Not yet determined Problem Qualifiers (1) Abdominal pain: Qualified Codes: R10.84 - Generalized abdominal pain (2) Ascites: Qualified Codes: R18.8 - Other ascites Rosemary Fong May 31, 2017 16:11 Xu Hoover DO Jun 05, 2017 13:40
--- NOTE | 2017-05-31 16:26 | RADRPT ---
EXAM DATE/TIME: 05/31/2017 16:05 [facility] COMPARISON: No previous studies available for comparison. INDICATIONS : Cough MEDICAL HISTORY : Cardiovascular disease. Hypertension. Diabetes SURGICAL HISTORY : section. ENCOUNTER: Initial ACUITY: 2 weeks PAIN SCORE: 0/10 LOCATION: chest FINDINGS: PA and lateral views of the chest demonstrate the lungs to be symmetrically aerated without evidence of mass, infiltrate or effusion. The cardiomediastinal contours are unremarkable. Osseous structure s are intact. CONCLUSION: No acute disease. Ivan Lowe MD on May 31, 2017 at 16:24 Board Certified Radiologist. This report was verified electronically.
[2017-05-31] MEDS ORDERED: MORPHINE SULFATE 4 MG/ML INJ IV PUSH ONE (16:45)
[2017-05-31] MEDS ORDERED: LIDOCAINE HCL 1% 20 ML VIAL ONE (18:11)
--- NOTE | 2017-05-31 18:13 | RADRPT ---
EXAM DATE/TIME: 05/31/2017 16:43 [facility] COMPARISON: No previous studies available for comparison. INDICATIONS : Ascities. MEDICAL HISTORY : Myocardial infarction. Hypercholesterolemia. Hypertension. Coronary artery disease. Anticoagulant the rapy. Diabetes. SURGICAL HISTORY : section. Cardiac catheterization. ENCOUNTER: Initial ACUITY: 1 day PAIN SCORE: 10/10 LOCATION: Midline. FLUID: Total volume of 15 cc of cloudy, yellow fluid was removed. Fluid was sent to lab for ordered studies. Post procedure scanning reveals no hematoma or other complication. TECHNIQUE: 1. Ultrasound guidance for abdominal paracentesis. 2. Paracentesis. The risks, benefits, and alternatives to ultrasound guided paracentesis were explained to the patient in detail including the risk of bleeding and infection. Written and verbal informed consent was obt ained. With the patient on the ultrasound table, ultrasound imaging was used to select the most appropriate approach for paracentesis. Overlying skin was prepped and draped in the usual sterile fashion and wi th a local anesthetic, a dermatotomy was made with an 11 blade scalpel. Attempted safety centesis dixie inage of the minimal ascites from a midline approach with minimal return. A micropuncture needle was sonographically guided into the peritoneal cavity. Was able to aspirate approximately 15 cc of ascite s. The patient tolerated the procedure well and left the ultrasound suite in stable condition. CONCLUSION: Uncomplicated ultrasound guided paracentesis. Minimal fluid aspirated. Jonathan Adame MD on May 31, 2017 at 18:09 Board Certified Radiologist. This report was verified electronically.
[2017-05-31] MEDS: SODIUM CHLOR 0.9% 1000 ML INJ 1,000 ML IV SCH (18:25)
[2017-05-31 18:26] VITALS: BP 151/78; PULSE 112; RESP 16; O2SAT 99
[2017-05-31] MEDS: DICYCLOMINE HCL 20 MG TAB PO SCH (18:37)
[2017-05-31 19:06] VITALS: BP 141/77; PULSE 97; RESP 16; TEMP 99.3; O2SAT 97
[2017-05-31 21:00] VITALS: PULSE 112
[2017-05-31] MEDS: SODIUM CHLORIDE 0.9% FLUSH 10 ML FLUSH IV FLUSH SCH (21:00)
[2017-05-31] MEDS ORDERED: ATORVASTATIN 40 MG TAB PO SCH (21:00)
[2017-05-31 21:12] VITALS: BP 137/90; PULSE 114; RESP 20; TEMP 98.3; O2SAT 98
[2017-05-31] MEDS: MORPHINE SULFATE 4 MG/ML INJ IV PUSH PRN (21:30)
[2017-05-31] MEDS: METOPROLOL TARTRATE 100 MG TAB PO SCH (21:32)
[2017-05-31] MEDS: ASPIRIN EC 81 MG TABEC PO SCH (21:32)
[2017-05-31] MEDS: LISINOPRIL 5 MG TAB PO SCH (21:33)
[2017-05-31 22:14] LABS: PERITONEAL HISTIOCYTES 2 %; PERITONEAL LYMPHS 59 %; PERITONEAL MESOTHELIAL 6 %; PERITONEAL MONOS 3 %; PERITONEAL PLASMA CELLS 1 %; PERITONEAL POLYS(SEGS) 27 %; PERITONEAL WBC 1657 /MM3 (0-10)
[2017-06-01] VITALS (7 sets, daily range): BP systolic 124–141; BP diastolic 69–86; PULSE 87–112; RESP 16–20; TEMP 97.3–98.5; O2SAT 95–97
[2017-06-01] MEDS: LEVOFLOXACIN 750 MG PREMIX INJ 150 ML IV SCH ×2 (01:51→20:12)
[2017-06-01] MEDS: ONDANSETRON HCL 4 MG/2 ML VIAL IVP PRN ×3 (04:16→16:51)
[2017-06-01] MEDS: MORPHINE SULFATE 4 MG/ML INJ IV PUSH PRN (07:52)
[2017-06-01] MEDS: DICYCLOMINE HCL 20 MG TAB PO SCH ×3 (07:54→16:57)
[2017-06-01] MEDS: PANTOPRAZOLE SOD 40 MG DELAYED RELEASE TAB PO SCH (07:54)
[2017-06-01] MEDS: SODIUM CHLORIDE 0.9% FLUSH 10 ML FLUSH IV FLUSH SCH ×2 (07:55→20:12)
[2017-06-01] MEDS: METOPROLOL TARTRATE 100 MG TAB PO SCH ×2 (07:55→20:12)
[2017-06-01 08:48] LABS: AUTOMATED NEUTROPHIL # 11.2 TH/MM3 (1.8-7.7); BASOPHIL % 0.3 % (0.0-2.0); EOSINOPHIL # 0.1 TH/MM3 (0-0.4); EOSINOPHIL % 0.4 % (0.0-4.0); HEMATOCRIT 39.7 % (35.0-46.0); HEMO FLAGS DIFF FINAL; LYMPH % 9.5 % (9.0-44.0); LYMPHOCYTE # 1.4 TH/MM3 (1.0-4.8); MEAN CELL VOLUME 92.2 FL (80.0-100.0); MEAN CORPUSCULAR HEMOGLOBIN 31.6 PG (27.0-34.0); MEAN CORPUSCULAR HGB CONC 34.3 % (32.0-36.0); NEUT % 77.8 % (16.0-70.0); PLATELET COUNT 460 TH/MM3 (150-450); RED CELL DISTRIBUTION WIDTH 13.4 % (11.6-17.2); WHITE BLOOD COUNT 14.5 TH/MM3 (4.0-11.0)
[2017-06-01 08:52] LABS: APTT (PATIENT) 31.3 SEC (24.3-30.1); PROTHROMBIN TIME - PATIENT 11.6 SEC (9.8-11.6)
[2017-06-01 09:27] LABS: BICARBONATE 24.8 MEQ/L (21.0-32.0); POTASSIUM 4.1 MEQ/L (3.5-5.1)
[2017-06-01 09:31] LABS: INDIRECT BILIRUBIN 0.4 MG/DL (0.0-0.8); TOTAL BILIRUBIN ADULT 0.5 MG/DL (0.2-1.0)
[2017-06-01] MEDS: SODIUM CHLOR 0.9% 1000 ML INJ 1,000 ML IV SCH ×2 (12:30→21:36)
[2017-06-01] MEDS ORDERED: HYDROmorphone HCL PF 1 MG/ML VIAL IV PUSH PRN (14:00)
[2017-06-01] MEDS ORDERED: PEG (High)/E-LYTE SOLN 4000 ML BTL PO ONE (15:30)
--- NOTE | 2017-06-01 15:34 | PD.CONS ---
HPI History of Present Illness This is a 52 year old female with hx NSTEMI 10y ago, CAD, HTN who presented with n/v, diffuse abd pain, abd distention. Onset 1-2 months ago. She began feeling abd discomfort and noticed her abdomen was getting distended, had nausea and nonbloody emesis. She has had some loose stool but none in a few days. She has had liver w/u, of note ASMA, RACHELE pos, schulz fibrosure indicating mod to severe fatty liver and no fibrosis. MRI 05/13/17 suggestive of liver hemangioma. CT 05/31/17 shows complex ascites new from 03/23/17.She has been to [facility] and was to have egd and colonoscopy but she is now in hospital. Admits pos family hx colon ca, questionable family hx liver ca. She is s/p paracentesis. Saag indicates portal htn. Deniese jaundice, diarrhea, hematemesis, blodo in stool, tarry stool. never had EGD or colonoscopy. Denies ETOH. (Migdalia Delaney) PFSH Past Medical History NSTEMI 10 y ago, stent placement HLD HTN CAD Past Surgical History C SECTION STENT PLACEMENT (Migdalia Delaney) Coded Allergies: penicillin G (Unverified Allergy, Unknown, UNKNOWN, 05/31/17) Family History colon ca ?liver ca Social History no etoh smokes 5 cigarettes daily no illicit drug use (Migdalia Delaney) Review of Systems Constitutional: DENIES: Chills Eyes: DENIES: Blurred vision Ears, nose, mouth, throat: DENIES: Hearing loss Respiratory: DENIES: Hemoptysis Cardiovascular: DENIES: Chest pain Gastrointestinal: COMPLAINS OF: Abdominal pain, Diarrhea, Nausea, Vomiting, Swelling of Abdomen, DENIES: Black stools, Bloody stools, Constipation, Hematemesis Genitourinary: DENIES: Hematuria Musculoskeletal: DENIES: Joint Swelling Integumentary: DENIES: Jaundice Hematologic/lymphatic: DENIES: Bruising Neurologic: DENIES: Abnormal gait Psychiatric: DENIES: Confusion (Migdalia Delaney) GI Exam Vitals I&O Vital Signs Date Time Temp Pulse Resp B/P (MAP) Pulse Ox O2 Delivery O2 Flow Rate FiO2 06/01/17 12:52 98.2 92 20 126/69 (88) 97 06/01/17 10:00 89 06/01/17 07:00 97.7 93 20 129/73 (91) 96 06/01/17 04:20 97.3 105 20 135/74 (94) 97 06/01/17 00:40 98.2 112 16 141/86 (104) 97 05/31/17 21:12 98.3 114 20 137/90 (106) 98 05/31/17 21:00 112 05/31/17 20:10 05/31/17 19:06 99.3 97 16 141/77 (98) 97 Room Air 05/31/17 18:26 112 16 151/78 (102) 99 Room Air 05/31/17 16:00 117 16 162/81 (108) 98 Room Air Imaging Last Impressions Chest X-Ray 05/31/17 1557 Signed Impressions: Service Date/Time: Wednesday, May 31, 2017 16:05 - CONCLUSION: No acute disease. Ivan Lowe MD Abdomen/Pelvis CT 05/31/17 1403 Signed Impressions: Service Date/Time: Wednesday, May 31, 2017 14:41 - CONCLUSION: Ascites appears complex new from 03/23/17. Other than liver disease I don't see an etiology for such. If paracentesis is contemplated fluid should be sent for cytology. Tom Kellogg MD FACR Cyst Biopsy Asp-Paracentesis US 05/31/17 0000 Signed Impressions: Service Date/Time: Wednesday, May 31, 2017 16:43 - CONCLUSION: Uncomplicated ultrasound guided paracentesis. Minimal fluid aspirated. Jonathan Adame MD Laboratory Test 05/31/17 17:53 06/01/17 01:30 06/01/17 07:23 Peritoneal Fluid WBC 1657 /MM3 Peritoneal Fluid RBC 349 /MM3 Peritoneal Fluid Neutrophils 27 % Peritoneal Fluid Lymphocytes 59 % Peritoneal Fluid Monocytes 3 % Peritoneal Fluid Histiocytes 2 % Peritoneal Fluid Mesothelial Cells 6 % Peritoneal Fluid Plasma Cells 1 % Peritoneal Fluid Other Cells 2 % Peritoneal Fluid Comment Peritoneal Fluid Total Protein 2.4 GM/DL Peritoneal Fluid Albumin 1.1 G/DL Peritoneal Fluid LDH 376 U/L Peritoneal Fluid Glucose 28 MG/DL Lactic Acid Level 0.6 mmol/L White Blood Count 14.5 TH/MM3 Red Blood Count 4.30 MIL/MM3 Hemoglobin 13.6 GM/DL Hematocrit 39.7 % Mean Corpuscular Volume 92.2 FL Mean Corpuscular Hemoglobin 31.6 PG Mean Corpuscular Hemoglobin Concent 34.3 % Red Cell Distribution Width 13.4 % Platelet Count 460 TH/MM3 Mean Platelet Volume 7.6 FL Neutrophils (%) (Auto) 77.8 % Lymphocytes (%) (Auto) 9.5 % Monocytes (%) (Auto) 12.0 % Eosinophils (%) (Auto) 0.4 % Basophils (%) (Auto) 0.3 % Neutrophils # (Auto) 11.2 TH/MM3 Lymphocytes # (Auto) 1.4 TH/MM3 Monocytes # (Auto) 1.7 TH/MM3 Eosinophils # (Auto) 0.1 TH/MM3 Basophils # (Auto) 0.0 TH/MM3 CBC Comment DIFF FINAL Differential Comment Prothrombin Time 11.6 SEC Prothromb Time International Ratio 1.0 RATIO Activated Partial Thromboplast Time 31.3 SEC Blood Urea Nitrogen 7 MG/DL Creatinine 0.57 MG/DL Random Glucose 112 MG/DL Total Protein 7.3 GM/DL Albumin 2.3 GM/DL Calcium Level 8.8 MG/DL Alkaline Phosphatase 76 U/L Aspartate Amino Transf (AST/SGOT) 21 U/L Alanine Aminotransferase (ALT/SGPT) 22 U/L Total Bilirubin 0.5 MG/DL Direct Bilirubin 0.1 MG/DL Sodium Level 131 MEQ/L Potassium Level 4.1 MEQ/L Chloride Level 98 MEQ/L Carbon Dioxide Level 24.8 MEQ/L Anion Gap 8 MEQ/L Estimat Glomerular Filtration Rate 111 ML/MIN Indirect Bilirubin 0.4 MG/DL Date/Time Source Procedure Growth Status 06/01/17 01:35 Blood Peripheral Aerobic Blood Culture Pending Received 06/01/17 01:35 Blood Peripheral Anaerobic Blood Culture Pending Received 05/31/17 17:53 Fluid Peritoneal Fluid Gram Stain - Final Resulted 05/31/17 17:53 Fluid Peritoneal Fluid Body Fluid Culture - Preliminary NO GROWTH IN 24 HOURS. Resulted Physical Examination HEENT: PERRL; normocephalic; atraumatic; no jaundice. CHEST: CTA CARDIAC: RRR ABDOMEN: semi firm, mildly distended, diffuse TTP; no hepatosplenomegaly; bowel sounds are present in all four quadrants. EXTREMITIES: No clubbing, cyanosis, or edema. SKIN: Normal; no rash; no jaundice. 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 (Migdalia Delaney) Assessment and Plan Plan ASSESSMENT - abd pain, n/v - onset about 2 months ago, diffuse abd pain CT shows complex ascites new from 03/23/17. +Fam hx colon ca never had EGD or colonoscopy - abd distention, ascites - ?SCHULZ SAAG >1.1 indicates portal HTN. No LFT derangement at this time. liver w/u done as outpatient pos RACHELE pos ASMA, SCHULZ with no fibrosis and moderate-severe steatosis. CT as above. MRI shows benign hemangioma peritoneal cytology pending. cx no growth thus far - leukocytosis - wbc 14.5 on admission PLAN - await peritoneal fluid cytology - EGD colonoscopy tomorrow - GoLytely - obtain consent - clears today - Npo after midnight - consider liver bx - monitor labs - further recs as case unfolds -This pt seen by myself and Dr Damon and this note is written on his behalf (Migdalia Delaney) Physician Comments Agree with above plan, discussed with Dr Mcadams, will hold on endoscopic evaluation for now. Further recommendations to follow. (Haile Damon MD) Migdalia Delaney Jun 01, 2017 15:34 Haile Damon MD Jun 01, 2017 18:32
[2017-06-01] MEDS ORDERED: INSULIN HUMAN REGULAR 1,000 UNITS/10 ML VIAL SQ PRN (16:45)
[2017-06-01] MEDS ORDERED: SODIUM CHLORID 0.9% 500 ML IV PRN (16:45)
[2017-06-01] MEDS ORDERED: LACTATED RINGER'S 1000 ML IV PRN (16:45)
[2017-06-01] MEDS ORDERED: METOPROLOL TARTRATE 25 MG TAB PO PRN (16:45)
[2017-06-01] MEDS ORDERED: POVIDONE IODINE 5% (ANTISEPSIS KIT) 4 APPLICATIONS EACH NARE PRN (16:45)
[2017-06-01] MEDS ORDERED: CHLORHEXIDINE GLUCONATE 2 % 1 PACK (2 CLOTHS) TOPICAL PRN (16:45)
--- NOTE | 2017-06-01 17:41 | HHI.PR ---
Subjective Remarks Pt still with the same amount of abdominal pain today as yesterday Still very tender to palpation She received IVF overnight Afebrile Objective Vitals Vital Signs Date Time Temp Pulse Resp B/P (MAP) Pulse Ox O2 Delivery O2 Flow Rate FiO2 06/01/17 12:52 98.2 92 20 126/69 (88) 97 06/01/17 10:00 89 06/01/17 07:00 97.7 93 20 129/73 (91) 96 06/01/17 04:20 97.3 105 20 135/74 (94) 97 06/01/17 00:40 98.2 112 16 141/86 (104) 97 05/31/17 21:12 98.3 114 20 137/90 (106) 98 05/31/17 21:00 112 05/31/17 20:10 05/31/17 19:06 99.3 97 16 141/77 (98) 97 Room Air 05/31/17 18:26 112 16 151/78 (102) 99 Room Air Result Diagram: 06/01/17 0723 06/01/17 0723 Other Results Laboratory Tests Test 05/31/17 11:42 05/31/17 12:55 05/31/17 17:53 06/01/17 01:30 White Blood Count 14.5 TH/MM3 Red Blood Count 4.41 MIL/MM3 Hemoglobin 13.7 GM/DL Hematocrit 40.4 % Mean Corpuscular Volume 91.5 FL Mean Corpuscular Hemoglobin 30.9 PG Mean Corpuscular Hemoglobin Concent 33.8 % Red Cell Distribution Width 13.0 % Platelet Count 512 TH/MM3 Mean Platelet Volume 7.5 FL Neutrophils (%) (Auto) 73.6 % Lymphocytes (%) (Auto) 14.9 % Monocytes (%) (Auto) 10.7 % Eosinophils (%) (Auto) 0.5 % Basophils (%) (Auto) 0.3 % Neutrophils # (Auto) 10.7 TH/MM3 Lymphocytes # (Auto) 2.2 TH/MM3 Monocytes # (Auto) 1.5 TH/MM3 Eosinophils # (Auto) 0.1 TH/MM3 Basophils # (Auto) 0.0 TH/MM3 CBC Comment DIFF FINAL Differential Comment Prothrombin Time 11.0 SEC Prothromb Time International Ratio 1.0 RATIO Activated Partial Thromboplast Time 29.2 SEC Blood Urea Nitrogen 10 MG/DL Creatinine 0.69 MG/DL Random Glucose 93 MG/DL Total Protein 7.9 GM/DL Albumin 2.8 GM/DL Calcium Level 9.1 MG/DL Alkaline Phosphatase 82 U/L Aspartate Amino Transf (AST/SGOT) 22 U/L Alanine Aminotransferase (ALT/SGPT) 24 U/L Total Bilirubin 0.4 MG/DL Sodium Level 134 MEQ/L Potassium Level 4.1 MEQ/L Chloride Level 99 MEQ/L Carbon Dioxide Level 25.1 MEQ/L Anion Gap 10 MEQ/L Estimat Glomerular Filtration Rate 89 ML/MIN Lactate Dehydrogenase 196 U/L Lipase 115 U/L Urine Color YELLOW Urine Turbidity HAZY Urine pH 5.5 Urine Specific [place] 1.035 Urine Protein 30 mg/dL Urine Glucose (UA) NEG mg/dL Urine Ketones 40 mg/dL Urine Occult Blood NEG Urine Nitrite NEG Urine Bilirubin NEG Urine Urobilinogen 2.0 MG/DL Urine Leukocyte Esterase NEG Urine RBC 12 /hpf Urine WBC 4 /hpf Urine Squamous Epithelial Cells 1 /hpf Urine Calcium Oxalate Crystals RARE /hpf Urine Bacteria RARE /hpf Urine Hyaline Casts 7 /lpf Urine Mucus MANY /lpf Microscopic Urinalysis Comment CULT NOT INDICATED Urine Opiates Screen NEG Urine Barbiturates Screen NEG Urine Amphetamines Screen NEG Urine Benzodiazepines Screen NEG Urine Cocaine Screen NEG Urine Cannabinoids Screen NEG Peritoneal Fluid WBC 1657 /MM3 Peritoneal Fluid RBC 349 /MM3 Peritoneal Fluid Neutrophils 27 % Peritoneal Fluid Lymphocytes 59 % Peritoneal Fluid Monocytes 3 % Peritoneal Fluid Histiocytes 2 % Peritoneal Fluid Mesothelial Cells 6 % Peritoneal Fluid Plasma Cells 1 % Peritoneal Fluid Other Cells 2 % Peritoneal Fluid Comment Peritoneal Fluid Total Protein 2.4 GM/DL Peritoneal Fluid Albumin 1.1 G/DL Peritoneal Fluid LDH 376 U/L Peritoneal Fluid Glucose 28 MG/DL Lactic Acid Level 0.6 mmol/L Test 06/01/17 07:23 White Blood Count 14.5 TH/MM3 Red Blood Count 4.30 MIL/MM3 Hemoglobin 13.6 GM/DL Hematocrit 39.7 % Mean Corpuscular Volume 92.2 FL Mean Corpuscular Hemoglobin 31.6 PG Mean Corpuscular Hemoglobin Concent 34.3 % Red Cell Distribution Width 13.4 % Platelet Count 460 TH/MM3 Mean Platelet Volume 7.6 FL Neutrophils (%) (Auto) 77.8 % Lymphocytes (%) (Auto) 9.5 % Monocytes (%) (Auto) 12.0 % Eosinophils (%) (Auto) 0.4 % Basophils (%) (Auto) 0.3 % Neutrophils # (Auto) 11.2 TH/MM3 Lymphocytes # (Auto) 1.4 TH/MM3 Monocytes # (Auto) 1.7 TH/MM3 Eosinophils # (Auto) 0.1 TH/MM3 Basophils # (Auto) 0.0 TH/MM3 CBC Comment DIFF FINAL Differential Comment Prothrombin Time 11.6 SEC Prothromb Time International Ratio 1.0 RATIO Activated Partial Thromboplast Time 31.3 SEC Blood Urea Nitrogen 7 MG/DL Creatinine 0.57 MG/DL Random Glucose 112 MG/DL Total Protein 7.3 GM/DL Albumin 2.3 GM/DL Calcium Level 8.8 MG/DL Alkaline Phosphatase 76 U/L Aspartate Amino Transf (AST/SGOT) 21 U/L Alanine Aminotransferase (ALT/SGPT) 22 U/L Total Bilirubin 0.5 MG/DL Direct Bilirubin 0.1 MG/DL Sodium Level 131 MEQ/L Potassium Level 4.1 MEQ/L Chloride Level 98 MEQ/L Carbon Dioxide Level 24.8 MEQ/L Anion Gap 8 MEQ/L Estimat Glomerular Filtration Rate 111 ML/MIN Indirect Bilirubin 0.4 MG/DL Imaging Last Impressions Chest X-Ray 05/31/17 1557 Signed Impressions: Service Date/Time: Wednesday, May 31, 2017 16:05 - CONCLUSION: No acute disease. Ivan Lowe MD Abdomen/Pelvis CT 05/31/17 1403 Signed Impressions: Service Date/Time: Wednesday, May 31, 2017 14:41 - CONCLUSION: Ascites appears complex new from 03/23/17. Other than liver disease I don't see an etiology for such. If paracentesis is contemplated fluid should be sent for cytology. Tom Kellogg MD FACR Cyst Biopsy Asp-Paracentesis US 05/31/17 0000 Signed Impressions: Service Date/Time: Wednesday, May 31, 2017 16:43 - CONCLUSION: Uncomplicated ultrasound guided paracentesis. Minimal fluid aspirated. Jonathan Adame MD Objective Remarks General: Appears to be in pain Chest: CTA Cardiac: Regular rhythm, tachy Abd: +BS, semi-firm, distended, diffusely tender to palpation with voluntary guarding, no rebound Ext: No edema A/P Problem List: (1) Abdominal pain ICD Codes: R10.9 - Unspecified abdominal pain Status: Acute Plan: - 52 y/o WF with HTN, hyperlipidemia, borderline diabetes and CAD with hx of NSETMI s/p stent to RCA in 2010. - Pt presented to the ED with complaints of worsening abdominal pain and distension. She states that she has been having issues with abd pain for the last 2 months. For the last 2 weeks she has been having increased generalized abd pain and distension which has been significantly worse over the last 2 days. - CT Abd/pelvis revealed ascites appears complex and new from 03/23/17. - She was previously seen in the ED on 03/[address] abd/pelvis at that time noted an 18mm lesion in the right lobe of the liver, with features favoring hemangioma. She was sent for followup as an outpt with GI. She had an MRI Abdomen W/O Contrast (05/13/17) with benign hemangioma in the caudate lobe of the liver corresponding to the lesion identified on CT otherwise normal examination. - Outpt workup with GI in April 2017 revealed positive ASMA, positive RACHELE, and RODRIGUEZ FibroSURE with fibrosis score of 0.04 (No fibrosis), Steatosis score of 0.78/S3 (marked or severe steatosis). Viral Hepatitis was negative. IgG subclasses were WNL, LKM Ab negative, AMA negative, Iron studies WNL, Ferritin 160 (slightly elevated), Ceruloplasmin WNL. Labs on 05/12/17 with AST 54, ALT 81, AlkPhos 92, Tbili 0.8 , DBili 0.2. - Pt was ordered to have EGD/colonoscopy and liver biopsy but these have not been done yet. - Pt had diagnostic paracentesis on 05/31 with removal of 15cc of fluid - Cell count for the fluid noted WBC count 1657 - Fluid culture with no grown x 24 hours, gram stain with few WBCs - Cytology pending. - SAAG >1.1 indicates portal HTN - Appreciate GI consult - Pain control PRN - Give some IV Albumin - General Surgery consulted as her abd pain is still quite significant - Home meds resumed for BP control - Her statin was held as an outpt due to elevated LFTs - Supportive care - DVT prophylaxis with SCDs (2) Ascites ICD Codes: R18.8 - Other ascites Status: Acute Plan: - See above (3) Hypertension ICD Codes: I10 - Essential (primary) hypertension Status: Acute Plan: - Home meds resumed - Monitor (4) Hyperlipidemia ICD Codes: E78.5 - Hyperlipidemia, unspecified Status: Acute Plan: - Statin was held as an outpt (5) CAD (coronary artery disease) ICD Codes: I25.10 - Atherosclerotic heart disease of [place] coronary artery without angina pectoris Status: Acute Plan: - Pt with hx of CAD and NSTEMI in 2010 s/p stent in the RCA (6) Tobacco abuse ICD Codes: Z72.0 - Tobacco use Status: Acute Assessment and Plan Patient examined. Assessment and plan formulated with Rosemary Fong PA-C. I agree with the above. Problem Qualifiers (1) Abdominal pain: Qualified Codes: R10.84 - Generalized abdominal pain (2) Ascites: Qualified Codes: R18.8 - Other ascites Rosemary Fong Jun 01, 2017 17:41 Xu Hoover DO Jun 05, 2017 13:57
[2017-06-01] MEDS: ALBUMIN 25% INJ 100 ML IV SCH (18:18)
--- NOTE | 2017-06-01 18:47 | EKG ---
Date Performed: 05/31/2017 Time Performed: 16:15:12 PTAGE: 52 years EKG: SINUS TACHYCARDIA ABNORMAL RHYTHM ECG Compared to prior tracing no significant change PREVIOUS TRACING : 01/05/2017 20.08 DOCTOR: Brigitte Song Interpretating Date/Time 06/01/2017 18:46:23
[2017-06-01] MEDS: ASPIRIN EC 81 MG TABEC PO SCH (20:11)
[2017-06-01] MEDS: LISINOPRIL 5 MG TAB PO SCH (20:12)
--- NOTE | 2017-06-01 21:03 | PD.CONS ---
HPI Service General surgery Consult Requested By Dr. Hoover Reason for Consult Peritonitis Primary Care Physician Kevin Mei MD History of Present Illness The patient is a 52-year-old female who presented to the hospital yesterday with complaints of worsening abdominal bloating. She states that about 2 months ago at the end of February she presented to the emergency department with epigastric abdominal pain. 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 Over the last 2 months she's had progressive bloating which has been causing abdominal discomfort For a while she had pain primarily in the left upper abdomen but more recently it has been in various locations throughout the abdomen. She very rarely drinks alcohol. She denies much NSAIDs use. She's had nonbloody emesis. Past surgical history includes . She also has a history of coronary artery disease status post NSTEMI. On CT of the abdomen and pelvis she was found to have complex ascites and mesenteric edema. Paracentesis was performed and fluid had 1600 white blood cells. She's been placed on Levaquin for probable spontaneous bacterial peritonitis. Review of Systems Constitutional: DENIES: Fever, Chills Eyes: DENIES: Eye inflammation, Eye pain Respiratory: DENIES: Cough, Shortness of breath Cardiovascular: DENIES: Chest pain, Palpitations Gastrointestinal: COMPLAINS OF: Abdominal pain, Nausea, Vomiting Integumentary: DENIES: Pruritus, Rash Neurologic: DENIES: Paresthesias, Seizures Past Family Social History Past Medical History Hypertension Coronary artery disease NSTEMI RODRIGUEZ Past Surgical History Reported Medications Reported Meds & Active Scripts Active Metoprolol Tartrate 100 Mg Tab 100 Mg PO BID Reported Dicyclomine (Dicyclomine HCl) Unknown Strength Tab Unknown Dose PO TID PRN Omeprazole 40 Mg Cap 40 Mg PO HS PRN Atorvastatin (Atorvastatin Calcium) 80 Mg Tab 80 Mg PO HS Aspirin EC (Aspirin) 81 Mg Tabdr 81 Mg PO HS Lisinopril 2.5 Mg Tab 2.5 Mg PO HS Allergies: Coded Allergies: penicillin G (Unverified Allergy, Unknown, UNKNOWN, 05/31/17) Active Ordered Medications Current Medications Medications (Trade) Dose Ordered Sig/Nelda Route Start Time Stop Time Status Last Admin (NS Flush) 2 ml UNSCH PRN IV FLUSH 05/31/17 16:00 (NS Flush) 2 ml BID IV FLUSH 05/31/17 21:00 06/01/17 07:55 (Zofran Inj) 4 mg Q6H PRN IVP 05/31/17 16:00 06/01/17 16:51 (Restoril) 15 mg HS PRN PO 05/31/17 16:00 (Narcan Inj) 0.4 mg UNSCH PRN IV PUSH 05/31/17 16:00 (Milk Of Magnesia Liq) 30 ml Q12H PRN PO 05/31/17 16:00 (Ecotrin Ec) 81 mg HS PO 05/31/17 21:00 06/01/17 20:11 (Lopressor) 100 mg BID PO 05/31/17 21:00 06/01/17 20:12 (Prinivil) 2.5 mg HS PO 05/31/17 21:00 06/01/17 20:12 (Protonix) 40 mg DAILY PO 06/01/17 09:00 06/01/17 07:54 (Bentyl) 20 mg TID PO 05/31/17 18:00 06/01/17 12:39 Sodium Chloride 1,000 ml @ 70 mls/hr [id number] IV 05/31/17 17:00 06/01/17 12:30 (Pill Splitter) 1 ea UNSCH PRN OTHER 05/31/17 21:00 Levofloxacin/ Dextrose 150 ml @ 100 mls/hr HS IV 05/31/17 22:45 06/01/17 20:12 (Roxicodone) 5 mg Q6H PRN PO 06/01/17 14:00 06/01/17 20:17 (Dilaudid Pf Inj) 1 mg Q6H PRN IV PUSH 06/01/17 14:00 06/01/17 16:52 Lactated Ringer's 1,000 ml @ 30 mls/hr Q24H PRN IV 06/01/17 16:45 06/04/17 16:44 Sodium Chloride 500 ml @ 30 mls/hr [id number] PRN IV 06/01/17 16:45 06/04/17 16:44 (Lopressor) 25 mg RAND BUTTER PRN PO 06/01/17 16:45 06/04/17 16:44 (Betadine 5% Antisepsis Kit) 1 applic RAND BUTTER PRN EACH NARE 06/01/17 16:45 06/04/17 16:44 (Chlorhexidine 2% Cloth) 3 pack RAND BUTTER PRN TOPICAL 06/01/17 16:45 06/04/17 16:44 (NovoLIN R INJ) See Protocol Table ... RAND BUTTER PRN SQ 06/01/17 16:45 06/04/17 16:44 Albumin Human 100 ml @ 60 mls/hr Q12H IV 06/01/17 18:15 06/01/17 18:18 Family History Noncontributory Social History Rare ETOH. Smokes cigarettes. Physical Exam Vital Signs Vital Signs Date Time Temp Pulse Resp B/P (MAP) Pulse Ox O2 Delivery O2 Flow Rate FiO2 06/01/17 17:37 98.5 90 20 124/74 (91) 95 06/01/17 12:52 98.2 92 20 126/69 (88) 97 06/01/17 10:00 89 06/01/17 07:00 97.7 93 20 129/73 (91) 96 06/01/17 04:20 97.3 105 20 135/74 (94) 97 06/01/17 00:40 98.2 112 16 141/86 (104) 97 05/31/17 21:12 98.3 114 20 137/90 (106) 98 05/31/17 21:00 112 Physical Exam GENERAL: Awake and alert. No acute distress. Cooperative. HEAD: Normocephalic. Atraumatic. EYES: Pupils equal round and reactive to light bilaterally. No scleral icterus. CHEST: Lungs clear to auscultation bilaterally with no wheezing or rhonchi. No respiratory distress. CARDIOVASCULAR: Regular rate and rhythm. ABDOMEN: Moderately distended. Diffuse tenderness to palpation with rebound tenderness in the epigastrium. EXTREMITIES: No cyanosis or edema. SKIN: Warm, dry, nonjaundiced. Laboratory Laboratory Tests Test 06/01/17 01:30 06/01/17 07:23 Lactic Acid Level 0.6 White Blood Count 14.5 Red Blood Count 4.30 Hemoglobin 13.6 Hematocrit 39.7 Mean Corpuscular Volume 92.2 Mean Corpuscular Hemoglobin 31.6 Mean Corpuscular Hemoglobin Concent 34.3 Red Cell Distribution Width 13.4 Platelet Count 460 Mean Platelet Volume 7.6 Neutrophils (%) (Auto) 77.8 Lymphocytes (%) (Auto) 9.5 Monocytes (%) (Auto) 12.0 Eosinophils (%) (Auto) 0.4 Basophils (%) (Auto) 0.3 Neutrophils # (Auto) 11.2 Lymphocytes # (Auto) 1.4 Monocytes # (Auto) 1.7 Eosinophils # (Auto) 0.1 Basophils # (Auto) 0.0 CBC Comment DIFF FINAL Differential Comment Prothrombin Time 11.6 Prothromb Time International Ratio 1.0 Activated Partial Thromboplast Time 31.3 Blood Urea Nitrogen 7 Creatinine 0.57 Random Glucose 112 Total Protein 7.3 Albumin 2.3 Calcium Level 8.8 Alkaline Phosphatase 76 Aspartate Amino Transf (AST/SGOT) 21 Alanine Aminotransferase (ALT/SGPT) 22 Total Bilirubin 0.5 Direct Bilirubin 0.1 Sodium Level 131 Potassium Level 4.1 Chloride Level 98 Carbon Dioxide Level 24.8 Anion Gap 8 Estimat Glomerular Filtration Rate 111 Indirect Bilirubin 0.4 Date/Time Source Procedure Growth Status 06/01/17 01:35 Blood Peripheral Aerobic Blood Culture Pending Received 06/01/17 01:35 Blood Peripheral Anaerobic Blood Culture Pending Received 05/31/17 17:53 Fluid Peritoneal Fluid Gram Stain - Final Resulted 05/31/17 17:53 Fluid Peritoneal Fluid Body Fluid Culture - Preliminary NO GROWTH IN 24 HOURS. Resulted Result Diagram: 06/01/17 0723 06/01/17 0723 Imaging Last Impressions Chest X-Ray 05/31/17 1557 Signed Impressions: Service Date/Time: Wednesday, May 31, 2017 16:05 - CONCLUSION: No acute disease. Ivan Lowe MD Abdomen/Pelvis CT 05/31/17 1403 Signed Impressions: Service Date/Time: Wednesday, May 31, 2017 14:41 - CONCLUSION: Ascites appears complex new from 03/23/17. Other than liver disease I don't see an etiology for such. If paracentesis is contemplated fluid should be sent for cytology. Tom Kellogg MD FACR Cyst Biopsy Asp-Paracentesis US 05/31/17 0000 Signed Impressions: Service Date/Time: Wednesday, May 31, 2017 16:43 - CONCLUSION: Uncomplicated ultrasound guided paracentesis. Minimal fluid aspirated. Jonathan Adame MD Assessment and Plan Assessment and Plan 52-year-old female with a two-month history of progressive abdominal distention and abdominal pain. She's been found to have RODRIGUEZ on outpatient evaluation. She has ascites with white blood cells in the peritoneal fluid. She does have peritonitis on exam. However she actually appears fairly comfortable at the moment. There is no indication that she has a surgical etiology of her abdominal symptoms and exam. I agree that she probably has spontaneous bacterial peritonitis. Agree with continuing Levaquin. Will follow up tomorrow. FredoScooby camacho MD Jun 01, 2017 21:03
[2017-06-02 00:45] VITALS: BP 112/65; PULSE 89; RESP 18; TEMP 98; O2SAT 95
[2017-06-02] MEDS: ONDANSETRON HCL 4 MG/2 ML VIAL IVP PRN (01:56)
[2017-06-02 04:15] VITALS: BP 115/65; PULSE 89; RESP 19; TEMP 97.3; O2SAT 94
[2017-06-02] MEDS: ALBUMIN 25% INJ 100 ML IV SCH ×2 (06:32→19:15)
[2017-06-02 08:00] VITALS: BP 128/70; PULSE 99; RESP 18; TEMP 98.5; O2SAT 95
[2017-06-02 08:28] LABS: BASOPHIL % 0.2 % (0.0-2.0); EOSINOPHIL # 0.1 TH/MM3 (0-0.4); EOSINOPHIL % 0.9 % (0.0-4.0); HEMO FLAGS DIFF FINAL; LYMPH % 12.4 % (9.0-44.0); LYMPHOCYTE # 1.7 TH/MM3 (1.0-4.8); MEAN CELL VOLUME 91.3 FL (80.0-100.0); MEAN CORPUSCULAR HEMOGLOBIN 30.9 PG (27.0-34.0); MEAN CORPUSCULAR HGB CONC 33.8 % (32.0-36.0); MONO % 11.5 % (0.0-8.0); PLATELET COUNT 422 TH/MM3 (150-450); RED BLOOD COUNT 4.05 MIL/MM3 (4.00-5.30); RED CELL DISTRIBUTION WIDTH 13.3 % (11.6-17.2); WHITE BLOOD COUNT 13.4 TH/MM3 (4.0-11.0)
[2017-06-02] MEDS: DICYCLOMINE HCL 20 MG TAB PO SCH ×3 (08:39→18:00)
[2017-06-02] MEDS: PANTOPRAZOLE SOD 40 MG DELAYED RELEASE TAB PO SCH (08:39)
[2017-06-02] MEDS: METOPROLOL TARTRATE 100 MG TAB PO SCH ×2 (08:39→22:07)
[2017-06-02] MEDS: SODIUM CHLORIDE 0.9% FLUSH 10 ML FLUSH IV FLUSH SCH ×2 (09:00→21:00)
[2017-06-02 10:19] LABS: POTASSIUM 3.8 MEQ/L (3.5-5.1)
[2017-06-02 11:04] LABS: MAGNESIUM 1.8 MG/DL (1.5-2.5)
[2017-06-02 12:00] VITALS: BP 115/59; PULSE 92; RESP 18; TEMP 98.4; O2SAT 95
--- NOTE | 2017-06-02 12:49 | HHI.PR ---
Subjective Subjective Notes She still feels quite distended, but pain seems to be ok. No nausea or vomiting but she is only having clears for now. Objective Vitals/I&O Vital Signs Date Time Temp Pulse Resp B/P (MAP) Pulse Ox O2 Delivery O2 Flow Rate FiO2 06/02/17 08:00 98.5 99 18 128/70 (89) 95 05/31/17 19:06 Room Air Labs Laboratory Tests Test 06/02/17 07:22 White Blood Count 13.4 Red Blood Count 4.05 Hemoglobin 12.5 Hematocrit 37.0 Mean Corpuscular Volume 91.3 Mean Corpuscular Hemoglobin 30.9 Mean Corpuscular Hemoglobin Concent 33.8 Red Cell Distribution Width 13.3 Platelet Count 422 Mean Platelet Volume 7.6 Neutrophils (%) (Auto) 75.0 Lymphocytes (%) (Auto) 12.4 Monocytes (%) (Auto) 11.5 Eosinophils (%) (Auto) 0.9 Basophils (%) (Auto) 0.2 Neutrophils # (Auto) 10.0 Lymphocytes # (Auto) 1.7 Monocytes # (Auto) 1.5 Eosinophils # (Auto) 0.1 Basophils # (Auto) 0.0 CBC Comment DIFF FINAL Differential Comment Blood Urea Nitrogen 6 Creatinine 0.56 Random Glucose 99 Calcium Level 9.0 Magnesium Level 1.8 Sodium Level 133 Potassium Level 3.8 Chloride Level 98 Carbon Dioxide Level 26.0 Anion Gap 9 Estimat Glomerular Filtration Rate 114 Date/Time Source Procedure Growth Status 06/01/17 01:35 Blood Peripheral Aerobic Blood Culture - Preliminary NO GROWTH IN 1 DAY Resulted 06/01/17 01:35 Blood Peripheral Anaerobic Blood Culture - Preliminary NO GROWTH IN 1 DAY Resulted 05/31/17 17:53 Fluid Peritoneal Fluid Gram Stain - Final Resulted 05/31/17 17:53 Fluid Peritoneal Fluid Body Fluid Culture - Preliminary NO GROWTH IN 24 HOURS. Resulted Radiology Last Impressions Chest X-Ray 05/31/17 1557 Signed Impressions: Service Date/Time: Wednesday, May 31, 2017 16:05 - CONCLUSION: No acute disease. Ivan Lowe MD Abdomen/Pelvis CT 05/31/17 1403 Signed Impressions: Service Date/Time: Wednesday, May 31, 2017 14:41 - CONCLUSION: Ascites appears complex new from 03/23/17. Other than liver disease I don't see an etiology for such. If paracentesis is contemplated fluid should be sent for cytology. Tom Kellogg MD FACR Cyst Biopsy Asp-Paracentesis US 05/31/17 0000 Signed Impressions: Service Date/Time: Wednesday, May 31, 2017 16:43 - CONCLUSION: Uncomplicated ultrasound guided paracentesis. Minimal fluid aspirated. Jonathan Adame MD Narrative Exam NAD Abd: distended, moderate epigastric ttp. Tympanitic in upper abdomen. A/P Assessment and Plan 52 yo F with abdominal pain and ascites, apparent spontaneous bacterial peritonitis. WBC slightly improved. Cytology still pending from paracentesis. Cont levaquin. No surgical problem identified. Scooby Yoo MD Jun 02, 2017 12:49
[2017-06-02] MEDS: DOCUSATE SODIUM 100 MG CAP PO SCH ×2 (15:30→22:07)
--- NOTE | 2017-06-02 15:40 | HHI.GIFU ---
Subjective Remarks Up in chair. Continues to have diffuse abdominal pain, distention. Pt states no improvement. C/O constipation, no relief with MOM. Requesting laxative. (Suzi Hobbs) Objective Vitals I&O Vital Signs Date Time Temp Pulse Resp B/P (MAP) Pulse Ox O2 Delivery O2 Flow Rate FiO2 06/02/17 12:00 98.4 92 18 115/59 (77) 95 06/02/17 08:00 98.5 99 18 128/70 (89) 95 06/02/17 04:15 97.3 89 19 115/65 (82) 94 06/02/17 00:45 98.0 89 18 112/65 (81) 95 06/01/17 20:00 87 06/01/17 17:37 98.5 90 20 124/74 (91) 95 I/O 06/01/17 06/01/17 06/01/17 06/02/17 06/02/17 06/02/17 07:00 15:00 23:00 07:00 15:00 23:00 Intake Total 1070 ml 1472 ml Balance 1070 ml 1472 ml Intake Oral 0 ml 900 ml IV Total 1070 ml 572 ml # Voids 2 2 # Bowel Movements 0 Laboratory Laboratory Tests Test 06/02/17 07:22 White Blood Count 13.4 Red Blood Count 4.05 Hemoglobin 12.5 Hematocrit 37.0 Mean Corpuscular Volume 91.3 Mean Corpuscular Hemoglobin 30.9 Mean Corpuscular Hemoglobin Concent 33.8 Red Cell Distribution Width 13.3 Platelet Count 422 Mean Platelet Volume 7.6 Neutrophils (%) (Auto) 75.0 Lymphocytes (%) (Auto) 12.4 Monocytes (%) (Auto) 11.5 Eosinophils (%) (Auto) 0.9 Basophils (%) (Auto) 0.2 Neutrophils # (Auto) 10.0 Lymphocytes # (Auto) 1.7 Monocytes # (Auto) 1.5 Eosinophils # (Auto) 0.1 Basophils # (Auto) 0.0 CBC Comment DIFF FINAL Differential Comment Blood Urea Nitrogen 6 Creatinine 0.56 Random Glucose 99 Calcium Level 9.0 Magnesium Level 1.8 Sodium Level 133 Potassium Level 3.8 Chloride Level 98 Carbon Dioxide Level 26.0 Anion Gap 9 Estimat Glomerular Filtration Rate 114 Date/Time Source Procedure Growth Status 06/01/17 01:35 Blood Peripheral Aerobic Blood Culture - Preliminary NO GROWTH IN 1 DAY Resulted 06/01/17 01:35 Blood Peripheral Anaerobic Blood Culture - Preliminary NO GROWTH IN 1 DAY Resulted 05/31/17 17:53 Fluid Peritoneal Fluid Gram Stain - Final Resulted 05/31/17 17:53 Fluid Peritoneal Fluid Body Fluid Culture - Preliminary NO GROWTH IN 48 HOURS. Resulted Imaging Last Impressions Chest X-Ray 05/31/17 1557 Signed Impressions: Service Date/Time: Wednesday, May 31, 2017 16:05 - CONCLUSION: No acute disease. Ivan Lowe MD Abdomen/Pelvis CT 05/31/17 1403 Signed Impressions: Service Date/Time: Wednesday, May 31, 2017 14:41 - CONCLUSION: Ascites appears complex new from 03/23/17. Other than liver disease I don't see an etiology for such. If paracentesis is contemplated fluid should be sent for cytology. Tom Kellogg MD FACR Cyst Biopsy Asp-Paracentesis US 05/31/17 0000 Signed Impressions: Service Date/Time: Wednesday, May 31, 2017 16:43 - CONCLUSION: Uncomplicated ultrasound guided paracentesis. Minimal fluid aspirated. Jonathan Adame MD Physical Exam HEENT: Normocephalic; atraumatic; no jaundice. CHEST: CTA CARDIAC: RRR ABDOMEN: Semi firm, distended, moderate diffuse edema; no hepatosplenomegaly; bowel sounds are present in all four quadrants. EXTREMITIES: Trace ble edema. SKIN: Normal; no rash; no jaundice. 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 (Suzi Hobbs [facility]) Assessment and Plan Plan ASSESSMENT - New onset ascites, spontaneous bacterial peritonitis. S/P US Paracentesis ()---> 15cc. Peritoneal 1657, RBC 349. Fluid cultures no growth in 48 hours. SAAG> 1.1, indicating portal hypertension as the etiology for her ascites. Pt reports that her abdominal distention is about the same and she continues to have diffuse abdominal pain related to the distention. Unclear etiology. SAAG suggests portal htn, but recently had fibrosis score of 0.04 on RODRIGUEZ fibrosure. Will get US liver vasculature, 2D echo, Tumor Markers, Add Spironolactone. Cont. Levaquin for now, but will get recommendations from ID. Albumin. - Abdominal pain, nausea, vomiting. CT scan abdomen and pelvis (05/31/17)---> Ascites appears complex new from 03/23/17. Other than liver disease I don't see an etiology for such. If paracentesis is contemplated fluid should be sent for cytology. Likely her pain is related to above. - Portal htn. CT with small liver, SAAG > 1.1, indicating portal hypertension, mild coagulopathy, and hypoalbuminemia. S/P Outpatient workup April of 2017- ASMA (+), DARIUS (+), RODRIGUEZ Fibrosure with fibrosis score of 0.04, steatosis score of 0.78/S3 (marked or severe steatosis). Viral hepatitis was negative. IgG subclasses unremarkable. AMA negative. Iron studies unremarkable, Ceruloplasmin unremarkable. Pt with portal htn, although fibrosis score of 0.04 in Apr. - (+) DARIUS. Will get titer, darius workup. - Leukocytosis. WBC 13.4. BCx no growth 1 day. Peritoneal fluid no growth 48 hours. PLAN - 2 gram sodium diet - Cont. Albumin - Add Spironolactone - Cont. Levaquin for now - ID recommendations for abx - US liver vasculature and evaluate ascites for drainage - 2D echo - DARIUS titer and (+) DARIUS workup - May need liver biopsy and/or peritoneal bx based on results of above - Supportive care - Pt seen and examined by Dr. Damon and myself and this note is written on his behalf (Suzi Hobbs) Physician Comments Seen and examined. Plan as above. Further recommendations to follow. (Haile Damon MD) Suzi Hobbs Jun 02, 2017 15:40 Haile Damon MD Jun 03, 2017 09:02
--- NOTE | 2017-06-02 15:53 | HHI.PR ---
Subjective Remarks continued abdominal pain requiring narcotics. Objective Vitals Vital Signs Date Time Temp Pulse Resp B/P (MAP) Pulse Ox O2 Delivery O2 Flow Rate FiO2 06/02/17 12:00 98.4 92 18 115/59 (77) 95 06/02/17 08:00 98.5 99 18 128/70 (89) 95 06/02/17 04:15 97.3 89 19 115/65 (82) 94 06/02/17 00:45 98.0 89 18 112/65 (81) 95 06/01/17 20:00 87 06/01/17 17:37 98.5 90 20 124/74 (91) 95 Result Diagram: 06/02/1772106/02/17721 Imaging Last Impressions Chest X-Ray 05/31/17 1557 Signed Impressions: Service Date/Time: Wednesday, May 31, 2017 16:05 - CONCLUSION: No acute disease. Ivan Lowe MD Abdomen/Pelvis CT 05/31/17 1403 Signed Impressions: Service Date/Time: Wednesday, May 31, 2017 14:41 - CONCLUSION: Ascites appears complex new from 03/23/17. Other than liver disease I don't see an etiology for such. If paracentesis is contemplated fluid should be sent for cytology. Tom Kellogg MD FACR Cyst Biopsy Asp-Paracentesis US 05/31/17 0000 Signed Impressions: Service Date/Time: Wednesday, May 31, 2017 16:43 - CONCLUSION: Uncomplicated ultrasound guided paracentesis. Minimal fluid aspirated. Jonathan Adame MD Objective Remarks General: Appears to be in pain Chest: CTA Cardiac: Regular rhythm, tachy Abd: +BS, semi-firm, distended, diffusely tender to palpation with voluntary guarding, no rebound Ext: No edema A/P Problem List: (1) Abdominal pain ICD Codes: R10.9 - Unspecified abdominal pain Status: Acute Plan: - comgmt with GI and General Surgery - 52 y/o WF with HTN, hyperlipidemia, borderline diabetes and CAD with hx of NSETMI s/p stent to RCA in 2010. - Pt presented to the ED with complaints of worsening abdominal pain and distension. She states that she has been having issues with abd pain for the last 2 months. For the last 2 weeks she has been having increased generalized abd pain and distension which has been significantly worse over the last 2 days. - CT Abd/pelvis revealed ascites appears complex and new from 03/23/17. - She was previously seen in the ED on 03/[address] abd/pelvis at that time noted an 18mm lesion in the right lobe of the liver, with features favoring hemangioma. She was sent for followup as an outpt with GI. She had an MRI Abdomen W/O Contrast (05/13/17) with benign hemangioma in the caudate lobe of the liver corresponding to the lesion identified on CT otherwise normal examination. - Outpt workup with GI in April 2017 revealed positive ASMA, positive RACHELE, and RODRIGUEZ FibroSURE with fibrosis score of 0.04 (No fibrosis), Steatosis score of 0.78/S3 (marked or severe steatosis). Viral Hepatitis was negative. IgG subclasses were WNL, LKM Ab negative, AMA negative, Iron studies WNL, Ferritin 160 (slightly elevated), Ceruloplasmin WNL. Labs on 05/12/17 with AST 54, ALT 81, AlkPhos 92, Tbili 0.8 , DBili 0.2. - Pt was ordered to have EGD/colonoscopy and liver biopsy but these have not been done yet. - Pt had diagnostic paracentesis on 05/31 with removal of 15cc of fluid - Cell count for the fluid noted WBC count 1657 - Fluid culture with no grown x 48 hours, gram stain with few WBCs - SAAG >1.1 indicates portal HTN - comgmt with GI - Pain control PRN - IV Albumin - will discuss further with GI physician - Home meds resumed for BP control - Her statin was held as an outpt due to elevated LFTs - Supportive care - DVT prophylaxis with SCDs (2) Ascites ICD Codes: R18.8 - Other ascites Status: Acute Plan: - See above (3) Hypertension ICD Codes: I10 - Essential (primary) hypertension Status: Acute Plan: - Home meds resumed - Monitor (4) Hyperlipidemia ICD Codes: E78.5 - Hyperlipidemia, unspecified Status: Acute Plan: - Statin was held as an outpt (5) CAD (coronary artery disease) ICD Codes: I25.10 - Atherosclerotic heart disease of [place] coronary artery without angina pectoris Status: Acute Plan: - Pt with hx of CAD and NSTEMI in 2010 s/p stent in the RCA (6) Tobacco abuse ICD Codes: Z72.0 - Tobacco use Status: Acute Problem Qualifiers (1) Abdominal pain: Qualified Codes: R10.84 - Generalized abdominal pain (2) Ascites: Qualified Codes: R18.8 - Other ascites Xu Hoover DO Jun 02, 2017 15:53
[2017-06-02 16:00] VITALS: BP 116/61; PULSE 95; RESP 18; TEMP 98.3; O2SAT 95
[2017-06-02] MEDS: SPIRONOLACTONE 25 MG TAB PO SCH (19:16)
[2017-06-02 20:00] VITALS: BP 125/71; PULSE 95; RESP 18; TEMP 98.1; O2SAT 96
[2017-06-02] MEDS: LEVOFLOXACIN 750 MG PREMIX INJ 150 ML IV SCH (22:06)
[2017-06-02] MEDS: ASPIRIN EC 81 MG TABEC PO SCH (22:07)
[2017-06-02] MEDS: LISINOPRIL 5 MG TAB PO SCH (22:07)
[2017-06-03] VITALS (7 sets, daily range): BP systolic 114–159; BP diastolic 69–89; PULSE 85–106; RESP 18–20; TEMP 97.4–98.2; O2SAT 93–97
--- NOTE | 2017-06-03 00:20 | RADRPT ---
EXAM DATE/TIME: 06/02/2017 23:21 [facility] COMPARISON: CT ABDOMEN & PELVIS W CONTRAST, May 31, 2017, 14:41. EXTERNAL COMPARISON : [facility], MRI ABDOMEN W & W/O CONTRAST, May 13, 2017 INDICATIONS : Abdominal pain. MEDICAL HISTORY : Myocardial infarction. Hypercholesterolemia. Hypertension. Coronary artery disease. Anticoagulant the rapy. Diabetes. Measles. SURGICAL HISTORY : section. Coronary artery stent. ENCOUNTER: Initial ACUITY: 1 month PAIN SCORE: 8/10 LOCATION: Abdomen. MEASUREMENTS: LIVER: 15.9 cm length COMMON DUCT: 6 mm RIGHT KIDNEY: 10.8 x 5.0 x 5.4 cm SPLEEN: 11.4 cm length FINDINGS: There is a nodular contour to the liver which may reflect cirrhosis. There is a 2.5 cm hyperechoic ma ss in the right lobe. Malignancy is not excluded. MRI is recommended for further evaluation if clinic ally indicated. Moderate ascites is present. Spleen is normal in size. The pancreas is not visualized secondary to overlying bowel gas. The right kidney is echogenic characteristic of medical renal disease. Left-sided effusion is present . CONCLUSION: 1. Cirrhosis 2. Possible mass right lobe of the liver. MRI is recommended for further evaluation if clinically ind icated. 3. Moderate ascites Mert Paige MD on June 03, 2017 at 0:14 Board Certified Radiologist. This report was verified electronically.
[2017-06-03] MEDS: ONDANSETRON HCL 4 MG/2 ML VIAL IVP PRN (00:42)
[2017-06-03] MEDS: LACTULOSE SYRUP 20 GM/30 ML CUP PO PRN (05:03)
[2017-06-03] MEDS: ALBUMIN 25% INJ 100 ML IV SCH ×2 (06:28→19:01)
[2017-06-03] MEDS: SPIRONOLACTONE 25 MG TAB PO SCH (08:18)
[2017-06-03] MEDS: DICYCLOMINE HCL 20 MG TAB PO SCH ×3 (08:18→19:01)
[2017-06-03] MEDS: PANTOPRAZOLE SOD 40 MG DELAYED RELEASE TAB PO SCH (08:19)
[2017-06-03] MEDS: DOCUSATE SODIUM 100 MG CAP PO SCH ×2 (08:19→21:01)
[2017-06-03] MEDS: POLYETHYLENE GLYCOL 17 GM PKG PO SCH (08:19)
[2017-06-03] MEDS: METOPROLOL TARTRATE 100 MG TAB PO SCH ×2 (08:19→21:01)
[2017-06-03] MEDS: SODIUM CHLORIDE 0.9% FLUSH 10 ML FLUSH IV FLUSH SCH ×2 (08:28→21:00)
--- NOTE | 2017-06-03 14:16 | HHI.GIFU ---
Subjective Remarks Resting in bed. States she is feeling much better today since she had 2 bowel movements. Afebrile. Tolerating diet. (Suzi Hobbs) Objective Vitals I&O Vital Signs Date Time Temp Pulse Resp B/P (MAP) Pulse Ox O2 Delivery O2 Flow Rate FiO2 06/03/17 12:00 97.4 85 18 121/70 (87) 95 06/03/17 08:00 98.1 92 18 138/70 (92) 93 06/03/17 04:00 97.5 88 18 114/72 (86) 97 06/03/17 00:00 97.9 94 18 122/69 (86) 95 06/02/17 20:00 98.1 95 18 125/71 (89) 96 06/02/17 16:00 98.3 95 18 116/61 (79) 95 I/O 06/02/17 06/02/17 06/02/17 06/03/17 06/03/17 06/03/17 07:00 15:00 23:00 07:00 15:00 23:00 Intake Total 1472 ml 180 ml 719 ml Balance 1472 ml 180 ml 719 ml Intake Oral 900 ml 180 ml IV Total 572 ml 719 ml # Voids 2 6 # Bowel Movements 0 0 Laboratory Laboratory Tests Test 06/03/17 09:04 Tumor Marker Alpha Fetoprotein 1.2 Carcinoembryonic Antigen 0.8 CA 15-3 Antigen 24.2 CA 19-9 Antigen 17.5 CA 125 Antigen 172.6 Date/Time Source Procedure Growth Status 06/01/17 01:35 Blood Peripheral Aerobic Blood Culture - Preliminary NO GROWTH IN 2 DAYS Resulted 06/01/17 01:35 Blood Peripheral Anaerobic Blood Culture - Preliminary NO GROWTH IN 2 DAYS Resulted 05/31/17 17:53 Fluid Peritoneal Fluid Gram Stain - Final Complete 05/31/17 17:53 Fluid Peritoneal Fluid Body Fluid Culture - Final NO GROWTH IN 72 HRS.--AEROBICALLY OR ... Complete Imaging Last Impressions Liver Ultrasound 06/02/17 0000 Signed Impressions: Service Date/Time: Friday, June 02, 2017 23:21 - CONCLUSION: 1. Cirrhosis 2. Possible mass right lobe of the liver. MRI is recommended for further evaluation if clinically indicated. 3. Moderate ascites Mert Paige MD Chest X-Ray 05/31/17 1557 Signed Impressions: Service Date/Time: Wednesday, May 31, 2017 16:05 - CONCLUSION: No acute disease. Ivan Lowe MD Abdomen/Pelvis CT 05/31/17 1403 Signed Impressions: Service Date/Time: Wednesday, May 31, 2017 14:41 - CONCLUSION: Ascites appears complex new from 03/23/17. Other than liver disease I don't see an etiology for such. If paracentesis is contemplated fluid should be sent for cytology. Tom Kellogg MD FACR Cyst Biopsy Asp-Paracentesis US 05/31/17 0000 Signed Impressions: Service Date/Time: Wednesday, May 31, 2017 16:43 - CONCLUSION: Uncomplicated ultrasound guided paracentesis. Minimal fluid aspirated. Jonathan Adame MD Physical Exam HEENT: Normocephalic; atraumatic; no jaundice. CHEST: CTA CARDIAC: RRR ABDOMEN: Semi firm, distended, moderate diffuse edema; no hepatosplenomegaly; bowel sounds are present in all four quadrants. EXTREMITIES: Trace ble edema. SKIN: Normal; no rash; no jaundice. 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 (Suzi Hobbs [facility]) Assessment and Plan Plan ASSESSMENT - New onset ascites, spontaneous bacterial peritonitis. S/P US Paracentesis ()---> 15cc. Peritoneal 1657, RBC 349. Fluid cultures no growth in 48 hours. SAAG> 1.1, indicating portal hypertension as the etiology for her ascites. Cytology atypical epithelioid cells are present, suspicious for malignancy. SAAG suggests portal htn, but recently had fibrosis score of 0.04 on RODRIGUEZ fibrosure. Liver US (06/02/17)--> Cirrhosis, possible mass right lobe of the liver. MRI is recommended for further evaluation if clinically indicated, moderate ascites. 2D echo pending. Tumor Markers- Ca 125 172.6, Ca 19-9 17.5, Ca15-3 24.2, CEA 0.8, AFP 1.2. Suspect malignant ascites. Spironolactone. Levaquin. Albumin. - Abdominal pain, nausea, vomiting. CT scan abdomen and pelvis (05/31/17)---> Ascites appears complex new from 03/23/17. Other than liver disease I don't see an etiology for such. If paracentesis is contemplated fluid should be sent for cytology. Much improved today. - Liver mass with elevated Ca 125 at 172.6, cytology from paracentesis suspicious for malignancy. ? malignant ascites r/t metastatic disease, ? ovarian. D/W Dr. Hoover. - Portal htn. CT with small liver, SAAG > 1.1, indicating portal hypertension, mild coagulopathy, and hypoalbuminemia. S/P Outpatient workup April of 2017- ASMA (+), DARIUS (+), RODRIGUEZ Fibrosure with fibrosis score of 0.04, steatosis score of 0.78/S3 (marked or severe steatosis). Viral hepatitis was negative. IgG subclasses unremarkable. AMA negative. Iron studies unremarkable, Ceruloplasmin unremarkable. Pt with portal htn, although fibrosis score of 0.04 in Apr. - (+) DARIUS. Titer, darius workup in process - Leukocytosis. WBC 13.4. BCx no growth 2 day. Peritoneal fluid no growth 48 hours. PLAN - 2 gram sodium diet - Cont. Albumin - Cont. Spironolactone - Cont. Levaquin for now - DARIUS titer and (+) DARIUS workup - 2D echo pending - Monitor labs - Supportive care - Further workup per attending. Likely will need biopsy, possible further imaging. - Pt seen and examined by Dr. Damon and myself and this note is written on his behalf (Suzi Hobbs) Physician Comments Agree with the plan as above. D/W Dr Mcadams, will need peritoneal biopsy and possible panendoscopy possibly early next week. Will follow up with you. (Haile Damon MD) Suzi Hobbs Jun 03, 2017 14:16 Haile Damon MD Jun 03, 2017 15:48
--- NOTE | 2017-06-03 16:01 | ECHRPT ---
Indication: Ascites CONCLUSIONS The left ventricular systolic function is low normal with an estimated ejection fraction in the rang e of 50- 55%. Normal left ventricular size. Wall thickness is measured at the upper limits of normal. There is mild tricuspid valve regurgitation. The estimated pulmonary arterial pressure is 34.2 mmHg. BP: 114 / 72 HR: 88 Rhythm: Sinus MEASUREMENTS (Male / Female) Normal Values Technical Quality:Fair 2D ECHO LV Diastolic Diameter PLAX 5.1 cm 4.2 - 5.9 / 3.9 - 5.3 cm LV Systolic Diameter PLAX 4.0 cm IVS Diastolic Thickness 1.1 cm 0.6 - 1.0 / 0.6 - 0.9 cm LVPW Diastolic Thickness 1.1 cm 0.6 - 1.0 / 0.6 - 0.9 cm LV Relative Wall Thickness 0.4 LVOT Diameter 2.0 cm M-MODE Aortic Root Diameter MM 2.9 cm LA Systolic Diameter MM 4.0 cm LA Ao Ratio MM 1.4 AV Cusp Separation MM 1.9 cm DOPPLER AV Peak Velocity 115.0 cm/s AV Peak Gradient 5.3 mmHg LVOT Peak Velocity 112.0 cm/s LVOT Peak Gradient 5.0 mmHg AV Area Cont Eq pk 3.1 cm Mitral E Point Velocity 76.0 cm/s Mitral A Point Velocity 74.5 cm/s Mitral E to A Ratio 1.0 LV E' Lateral Velocity 10.1 cm/s Mitral E to LV E' Lateral Ratio 7.5 LV E' Septal Velocity 7.1 cm/s Mitral E to LV E' Septal Ratio 10.7 TR Peak Velocity 246.0 cm/s TR Peak Gradient 24.2 mmHg Right Atrial Pressure 10.0 mmHg Pulmonary Artery Systolic Pressu 34.2 mmHg Right Ventricular Systolic Press 34.2 mmHg PV Peak Velocity 114.0 cm/s PV Peak Gradient 5.2 mmHg FINDINGS LEFT VENTRICLE The left ventricular systolic function is low normal with an estimated ejection fraction in the rang e of 50- 55%. Normal left ventricular size. Wall thickness is measured at the upper limits of normal. RIGHT VENTRICLE Normal right ventricular size and systolic function. LEFT ATRIUM The left atrial size is normal. RIGHT ATRIUM The right atrial size is normal. ATRIAL SEPTUM Normal atrial septal thickness without atrial level shunting by limited color doppler interrogation. AORTA The aortic root and proximal ascending aorta are normal in size on limited imaging. MITRAL VALVE Structurally normal mitral valve. No mitral valve stenosis or regurgitation. AORTIC VALVE Trileaflet aortic valve. No aortic valve stenosis or regurgitation. TRICUSPID VALVE There is mild tricuspid valve regurgitation. The estimated pulmonary arterial pressure is 34.2 mmHg. PULMONARY VALVE No pulmonary valve regurgitation or stenosis. VESSELS The inferior vena cava is normal in size. PERICARDIUM No pericardial effusion. Rob Martines MD (Electronically Signed) Final Date:03 June 2017 15:59
--- NOTE | 2017-06-03 16:21 | HHI.PR ---
Subjective Remarks Pt had 2 BMs today. Pt is less painful today, but still dependent of pain medication. Pt is tolerating PO intake. Objective Vitals Vital Signs Date Time Temp Pulse Resp B/P (MAP) Pulse Ox O2 Delivery O2 Flow Rate FiO2 06/03/17 12:00 97.4 85 18 121/70 (87) 95 06/03/17 08:00 98.1 92 18 138/70 (92) 93 06/03/17 04:00 97.5 88 18 114/72 (86) 97 06/03/17 00:00 97.9 94 18 122/69 (86) 95 06/02/17 20:00 98.1 95 18 125/71 (89) 96 Result Diagram: 06/02/17 0722 06/02/17 0722 Imaging Last Impressions Chest X-Ray 05/31/17 1557 Signed Impressions: Service Date/Time: Wednesday, May 31, 2017 16:05 - CONCLUSION: No acute disease. Ivan Lowe MD Abdomen/Pelvis CT 05/31/17 1403 Signed Impressions: Service Date/Time: Wednesday, May 31, 2017 14:41 - CONCLUSION: Ascites appears complex new from 03/23/17. Other than liver disease I don't see an etiology for such. If paracentesis is contemplated fluid should be sent for cytology. Tom Kellogg MD FACR Cyst Biopsy Asp-Paracentesis US 05/31/17 0000 Signed Impressions: Service Date/Time: Wednesday, May 31, 2017 16:43 - CONCLUSION: Uncomplicated ultrasound guided paracentesis. Minimal fluid aspirated. Jonathan Adame MD Objective Remarks General: Appears to be in pain Chest: CTA Cardiac: Regular rhythm, tachy Abd: +BS, semi-firm, distended, diffusely tender to palpation with voluntary guarding, no rebound Ext: No edema A/P Problem List: (1) Abdominal pain ICD Codes: R10.9 - Unspecified abdominal pain Status: Acute Plan: - comgmt with GI and General Surgery - 52 y/o WF with HTN, hyperlipidemia, borderline diabetes and CAD with hx of NSETMI s/p stent to RCA in 2010. - Pt presented to the ED with complaints of worsening abdominal pain and distension. She states that she has been having issues with abd pain for the last 2 months. For the last 2 weeks she has been having increased generalized abd pain and distension which has been significantly worse over the last 2 days. - CT Abd/pelvis revealed ascites appears complex and new from 03/23/17. - She was previously seen in the ED on 03/[address] abd/pelvis at that time noted an 18mm lesion in the right lobe of the liver, with features favoring hemangioma. She was sent for followup as an outpt with GI. She had an MRI Abdomen W/O Contrast (05/13/17) with benign hemangioma in the caudate lobe of the liver corresponding to the lesion identified on CT otherwise normal examination. - Outpt workup with GI in April 2017 revealed positive ASMA, positive RACHELE, and RODRIGUEZ FibroSURE with fibrosis score of 0.04 (No fibrosis), Steatosis score of 0.78/S3 (marked or severe steatosis). Viral Hepatitis was negative. IgG subclasses were WNL, LKM Ab negative, AMA negative, Iron studies WNL, Ferritin 160 (slightly elevated), Ceruloplasmin WNL. Labs on 05/12/17 with AST 54, ALT 81, AlkPhos 92, Tbili 0.8 , DBili 0.2. - Pt was ordered to have EGD/colonoscopy and liver biopsy but these have not been done yet. - Pt had diagnostic paracentesis on 05/31 with removal of 15cc of fluid - Cell count for the fluid noted WBC count 1657 - Fluid culture with no grown x 48 hours, gram stain with few WBCs - SAAG >1.1 indicates portal HTN - comgmt with GI - Pain control PRN - IV Albumin - continue IV levaquin for possible SBP - Home meds resumed for BP control - Her statin was held as an outpt due to elevated LFTs - Supportive care - DVT prophylaxis with SCDs - Case discussed extensively with Radiology, Dr. Adame; GI, Dr. Damon;, and [facility], Dr. Dodge. - cytology was abnormal showing atypical cells suspicious for malignancy. There was a small cluster of cells suggestive for adenocarcinoma but definitive diagnosis could NOT be given. - Omentum appear to have some thickening. Radiology recommends Omental biopsy which has been ordered. - Repeat Paracentesis also ordered. - AFB studies requested to also r/o Omental TB - Case d/w Dr. Damon (06/03). He recommended Colonoscopy early next week to r/ o Colon cancer. - I anticipate continued hospitalization thru early next week (2) Ascites ICD Codes: R18.8 - Other ascites Status: Acute Plan: - See above (3) Hypertension ICD Codes: I10 - Essential (primary) hypertension Status: Acute Plan: - Home meds resumed - Monitor (4) Hyperlipidemia ICD Codes: E78.5 - Hyperlipidemia, unspecified Status: Acute Plan: - Statin was held as an outpt (5) CAD (coronary artery disease) ICD Codes: I25.10 - Atherosclerotic heart disease of [place] coronary artery without angina pectoris Status: Acute Plan: - Pt with hx of CAD and NSTEMI in 2010 s/p stent in the RCA (6) Tobacco abuse ICD Codes: Z72.0 - Tobacco use Status: Acute Problem Qualifiers (1) Abdominal pain: Qualified Codes: R10.84 - Generalized abdominal pain (2) Ascites: Qualified Codes: R18.8 - Other ascites Xu Hoover DO Jun 03, 2017 16:21
[2017-06-03 18:12] LABS: HEMATOCRIT 35.1 % (35.0-46.0); MEAN CORPUSCULAR HEMOGLOBIN 30.9 PG (27.0-34.0); MEAN CORPUSCULAR HGB CONC 33.5 % (32.0-36.0); PLATELET COUNT 444 TH/MM3 (150-450); RED BLOOD COUNT 3.82 MIL/MM3 (4.00-5.30); RED CELL DISTRIBUTION WIDTH 13.4 % (11.6-17.2); REVIEW FLAG FINAL; WHITE BLOOD COUNT 16.3 TH/MM3 (4.0-11.0)
[2017-06-03 18:23] LABS: APTT (PATIENT) 35.5 SEC (24.3-30.1); INTERNATIONAL NORMALIZED RATIO 1.1 RATIO; PROTHROMBIN TIME - PATIENT 11.7 SEC (9.8-11.6)
[2017-06-03] MEDS: SODIUM CHLOR 0.9% 1000 ML INJ 1,000 ML IV SCH (19:01)
[2017-06-03] MEDS: LISINOPRIL 5 MG TAB PO SCH (21:01)
[2017-06-03] MEDS: ASPIRIN EC 81 MG TABEC PO SCH (21:02)
[2017-06-03] MEDS: TEMAZEPAM 15 MG CAP PO PRN (21:02)
[2017-06-03] MEDS: LEVOFLOXACIN 750 MG PREMIX INJ 150 ML IV SCH (21:03)
[2017-06-04] VITALS (10 sets, daily range): BP systolic 136–162; BP diastolic 68–88; PULSE 92–111; RESP 18–20; TEMP 98.1–100.7; O2SAT 92–95
[2017-06-04] MEDS: ALBUMIN 25% INJ 100 ML IV SCH ×2 (06:28→18:21)
[2017-06-04 08:02] LABS: AUTOMATED NEUTROPHIL # 12.5 TH/MM3 (1.8-7.7); BASOPHIL % 0.2 % (0.0-2.0); EOSINOPHIL # 0.2 TH/MM3 (0-0.4); HEMATOCRIT 37.9 % (35.0-46.0); HEMO FLAGS DIFF FINAL; LYMPH % 9.5 % (9.0-44.0); LYMPHOCYTE # 1.5 TH/MM3 (1.0-4.8); MEAN CELL VOLUME 91.9 FL (80.0-100.0); MEAN CORPUSCULAR HEMOGLOBIN 30.4 PG (27.0-34.0); MEAN CORPUSCULAR HGB CONC 33.1 % (32.0-36.0); MONO % 10.7 % (0.0-8.0); NEUT % 78.6 % (16.0-70.0); PLATELET COUNT 498 TH/MM3 (150-450); RED BLOOD COUNT 4.12 MIL/MM3 (4.00-5.30); RED CELL DISTRIBUTION WIDTH 13.7 % (11.6-17.2); WHITE BLOOD COUNT 15.9 TH/MM3 (4.0-11.0)
--- NOTE | 2017-06-04 08:04 | MB ---
cc: ZACKERY,HANNAH CORTES MD, KELLY L. MD DATE OF CONSULTATION: 06/03/2017 REASON FOR CONSULTATION Ascites, elevated CA-125. HISTORY OF PRESENT ILLNESS This is a 52-year-old female who has been in the hospital for several days because of worsening abdominal pain and distention. She actually noticed increasing abdominal distention and discomfort over the last 2 months, worsened significantly in the days prior to admission. Her history is obtained from the records that are available from inpatient and outpatient evaluation and from speaking with her and from the excellent detailed synopsis provided by Dr. Florentin Hoover. The pertinent objective findings thus far show some ascites. She has had a paracentesis. The fluid showed cells that were atypical and were suspicious (but not definitively diagnostic) of malignancy. Imaging shows some atrophy to the liver with changes suggestive of cirrhosis. There is marked edema throughout the mesentery. I had the opportunity speak with Dr. Jonathan Adame in radiology and we agreed that there was some abnormal appearance to the omentum that he felt was amenable to CT-directed biopsy. CA-125 was modestly elevated at 173. AST, CEA, CA 15-3 and CA 19-9 were all within normal limits. Liver ultrasound showed a distinct area in the liver that appeared different than the surrounding liver, but it is my understanding from talking with her and Dr. Hoover that this has been evaluated as an outpatient and further evaluated radiographically and was thought to be a hemangioma by radiology. They did not feel that this was a neoplastic change in the liver. There is an ongoing GI evaluation. The gastric folds look a bit prominent and irregular on CT, but may be due to partially full/distended stomach. Nevertheless, given her symptoms this may need further evaluation by GI if upper endoscopy has not yet been done as part of recent outpatient and/or inpatient evaluation. Labs are such that her white count has remained elevated since admission at 16.3, H&H 11.8 and 35.1. Electrolytes are notable for sodium low at 133, BUN and creatinine are 6 and 0.56. Bilirubin and transaminases are normal, and it is my understanding that she has a negative hepatitis profile. She is seen now in consultation for further evaluation and recommendations regarding these findings. PAST MEDICAL HISTORY Her past medical history is significant for cardiac disease. She had a heart attack in her 40s. In 2010 she required cardiac stent placement. She was on anticoagulation at that time. She is no lower on anticoagulation other than a daily baby aspirin. She also has a history of hypertension and elevated lipids. PAST SURGICAL HISTORY 1. Cardiac exam placement. 2. Prior section. ALLERGIES PENICILLIN. MEDICATIONS Medications are reviewed as listed in the chart. She is on beta juany, metoprolol. She takes lisinopril, daily aspirin, cholesterol medication and medication for reflux, atorvastatin and omeprazole. FAMILY HISTORY History of colon cancer in her father. She also reports there is a history of cardiac disease and elevated cholesterol. SOCIAL HISTORY She is an active tobacco user. She reports that she is down to five cigarettes per day. Infrequent alcohol use. 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 REVIEW OF SYSTEMS As per history of present illness. She has not had any vaginal bleeding or discharge. She reports that she had a gynecologic exam with Dr. Massey within the past approximately year and a half. She reports a normal Pap smear and denies known history of abnormal Pap smears. She went to menopause in her early to mid 40s and has not had any bleeding, spotting or blood-tinged discharge. She has not had any pelvic pain. PHYSICAL EXAMINATION VITAL SIGNS: She is afebrile, pulse 92-106, blood pressure 121-159/70-89. O2 saturations greater than or equal to 93%. GENERAL: She is alert and oriented x3, in no acute distress. She is uncomfortable. ABDOMEN: Her abdomen is distended. There is some tenderness on exam but it is not acute. There is some mild rebound and a bit of guarding but she actually tolerates exam in all four quadrants without significant discomfort. BACK: Without CVA tenderness or spinal point tenderness. SKIN: Color and turgor are normal. EYES: Pupils are equal, round reactive to light. LYMPH NODE SURVEY: Preliminary lymph node survey is negative. LUNGS: Clear except for mild basilar rales. CARDIOVASCULAR: Regular rate and rhythm. EXTREMITIES: Mild edema bilaterally and nontender. No cords. DISCUSSION Time is spent in discussion with her, reviewing the findings in her case to date. I explained the reason for [employer] oncology consultation to determine whether or not her findings may be neoplastic, specifically whether or not there may be a cancer of gynecologic or peritoneal origin. I explained that we have not yet clarified why she is feeling poorly and additional information is needed to clarify why she is feeling poorly and how we can make recommendations for improvement. I have summarized the findings thus far and additional things that we may consider to try to clarify these issues. Discussion ensued. Questions were answered. She expressed good understanding and agreed. I then had the opportunity to speak further with Dr. FLORENTIN Hoover and with Dr. Jonathan Adame, confirmed that there were some changes to the omentum that appeared abnormal and that would be amenable to CT-directed biopsy, which would be very helpful as the biopsy from solid tissue tends to be more accurate and more revealing than fluid. If additional fluid can be obtained, it could be again sent for cytology as it is presently suspicious but not conclusively diagnostic for malignancy. With respect to her pain it is atypical for primary peritoneal or ovarian cancer, specifically if someone has pain related to an intraperitoneal tumor it is usually widespread tumor and quite obvious on imaging, and there is no obvious tumor on imaging. There are no adnexal masses. The uterus is not prominent or abnormal. The omentum has some subtle abnormalities, but is not overtly neoplastic. There are no peritoneal implants or adenopathy, such that her pain may or may not be related to an underlying neoplasm. With respect to changes suggestive of cirrhosis we know that cirrhosis can cause ascites and elevated CA-125 and third spacing of fluids and this could be a component to her presentation as well. Ongoing GI E&M. We discussed other possibilities such as an atypical infection as intraperitoneal tuberculosis or discussed less common neoplasm such as mesothelioma, and we have requested that tissue and fluid be obtained for cytology and pathology. It will also be sent for Gram stain, aerobic, anaerobic culture and sensitivity and acid fast bacillus. Agree with treatment for spontaneous bacterial peritonitis and ongoing antibiotics and supportive care. Also agree with ongoing GI work-up because of her symptoms and findings, and it may be reasonable to consider consultation with Infectious Disease. ASSESSMENT AND PLAN As summarized above. Thank for the consultation. Will follow along in her care. MD BRAYAN Ramires/MARGARITO /6:57 AM /7:35 AM KEVIN
[2017-06-04 08:39] LABS: ALKALINE PHOSPHATASE 70 U/L (45-117); ALT (GPT) 17 U/L (10-53); ANION GAP 10 MEQ/L (5-15); AST (GOT) 18 U/L (15-37); BICARBONATE 24.7 MEQ/L (21.0-32.0); BLOOD UREA NITROGEN 5 MG/DL (7-18); CHLORIDE 97 MEQ/L (98-107); GLOMERULAR FILTRATION RATE 101 ML/MIN (>89); POTASSIUM 3.6 MEQ/L (3.5-5.1); SODIUM (NA) 132 MEQ/L (136-145); TOTAL BILIRUBIN ADULT 0.6 MG/DL (0.2-1.0)
[2017-06-04] MEDS: SODIUM CHLORIDE 0.9% FLUSH 10 ML FLUSH IV FLUSH SCH ×2 (09:00→21:00)
[2017-06-04] MEDS: DICYCLOMINE HCL 20 MG TAB PO SCH ×3 (09:00→17:45)
[2017-06-04] MEDS: PANTOPRAZOLE SOD 40 MG DELAYED RELEASE TAB PO SCH (09:00)
[2017-06-04] MEDS: METOPROLOL TARTRATE 100 MG TAB PO SCH ×2 (09:00→21:31)
[2017-06-04] MEDS: SPIRONOLACTONE 25 MG TAB PO SCH (09:00)
[2017-06-04] MEDS: ONDANSETRON HCL 4 MG/2 ML VIAL IVP PRN ×2 (10:46→21:45)
[2017-06-04] MEDS: HYDROmorphone HCL PF 1 MG/ML VIAL IV PUSH PRN ×2 (10:46→21:45)
[2017-06-04] MEDS: POLYETHYLENE GLYCOL 17 GM PKG PO SCH (10:52)
[2017-06-04] MEDS: DOCUSATE SODIUM 100 MG CAP PO SCH ×2 (10:52→21:31)
--- NOTE | 2017-06-04 11:34 | HHI.PR ---
Subjective Remarks No new complaints. Objective Vitals Vital Signs Date Time Temp Pulse Resp B/P (MAP) Pulse Ox O2 Delivery O2 Flow Rate FiO2 06/04/17 08:00 98.9 108 20 162/71 (101) 94 06/04/17 04:00 98.7 92 20 140/77 (98) 94 06/04/17 00:00 98.2 97 20 136/88 (104) 93 06/03/17 20:00 97.6 106 20 159/89 (112) 93 06/03/17 16:00 98.2 95 18 124/79 (94) 95 06/03/17 12:00 97.4 85 18 121/70 (87) 95 Result Diagram: 06/04/17 0647 06/04/17 0647 Imaging Last Impressions Chest X-Ray 05/31/17 1557 Signed Impressions: Service Date/Time: Wednesday, May 31, 2017 16:05 - CONCLUSION: No acute disease. Ivan Lowe MD Abdomen/Pelvis CT 05/31/17 1403 Signed Impressions: Service Date/Time: Wednesday, May 31, 2017 14:41 - CONCLUSION: Ascites appears complex new from 03/23/17. Other than liver disease I don't see an etiology for such. If paracentesis is contemplated fluid should be sent for cytology. Tom Kellogg MD FACR Cyst Biopsy Asp-Paracentesis US 05/31/17 0000 Signed Impressions: Service Date/Time: Wednesday, May 31, 2017 16:43 - CONCLUSION: Uncomplicated ultrasound guided paracentesis. Minimal fluid aspirated. Jonathan Adame MD Objective Remarks General: NAD Chest: CTA Cardiac: Regular rhythm, tachy Abd: +BS, semi-firm, distended, diffusely tender to palpation with voluntary guarding, no rebound Ext: No edema A/P Problem List: (1) Abdominal pain ICD Codes: R10.9 - Unspecified abdominal pain Status: Acute Plan: - comgmt with GI and General Surgery - 52 y/o WF with HTN, hyperlipidemia, borderline diabetes and CAD with hx of NSETMI s/p stent to RCA in 2010. - Pt presented to the ED with complaints of worsening abdominal pain and distension. She states that she has been having issues with abd pain for the last 2 months. For the last 2 weeks she has been having increased generalized abd pain and distension which has been significantly worse over the last 2 days. - CT Abd/pelvis revealed ascites appears complex and new from 03/23/17. - She was previously seen in the ED on 03/[address] abd/pelvis at that time noted an 18mm lesion in the right lobe of the liver, with features favoring hemangioma. She was sent for followup as an outpt with GI. She had an MRI Abdomen W/O Contrast (05/13/17) with benign hemangioma in the caudate lobe of the liver corresponding to the lesion identified on CT otherwise normal examination. - Outpt workup with GI in April 2017 revealed positive ASMA, positive RACHELE, and RODRIGUEZ FibroSURE with fibrosis score of 0.04 (No fibrosis), Steatosis score of 0.78/S3 (marked or severe steatosis). Viral Hepatitis was negative. IgG subclasses were WNL, LKM Ab negative, AMA negative, Iron studies WNL, Ferritin 160 (slightly elevated), Ceruloplasmin WNL. Labs on 05/12/17 with AST 54, ALT 81, AlkPhos 92, Tbili 0.8 , DBili 0.2. - Pt was ordered to have EGD/colonoscopy and liver biopsy but these have not been done yet. - Pt had diagnostic paracentesis on 05/31 with removal of 15cc of fluid - Cell count for the fluid noted WBC count 1657 - Fluid culture with no grown x 48 hours, gram stain with few WBCs - SAAG >1.1 indicates portal HTN - comgmt with GI - Pain control PRN - IV Albumin - continue IV levaquin for possible SBP - Home meds resumed for BP control - Her statin was held as an outpt due to elevated LFTs - Supportive care - DVT prophylaxis with SCDs - Case discussed extensively with Radiology, Dr. Adame; GI, Dr. Damon;, and Adult Basic Education Teacher Oncology, Dr. Dodge. (06/03/17) - cytology was abnormal showing atypical cells suspicious for malignancy. There was a small cluster of cells suggestive for adenocarcinoma but definitive diagnosis could NOT be given. - Omentum appear to have some thickening. Radiology recommends Omental biopsy which has been ordered. - Case d/w Dr. Damon (06/03). He recommended Colonoscopy early next week to r/ o Colon cancer. - awaiting repeat Paracentesis, today - awaiting Omental Biopsy, today - I anticipate continued hospitalization thru early next week (2) Ascites ICD Codes: R18.8 - Other ascites Status: Acute Plan: - See above (3) Hypertension ICD Codes: I10 - Essential (primary) hypertension Status: Acute Plan: - Home meds resumed - Monitor (4) Hyperlipidemia ICD Codes: E78.5 - Hyperlipidemia, unspecified Status: Acute Plan: - Statin was held as an outpt (5) CAD (coronary artery disease) ICD Codes: I25.10 - Atherosclerotic heart disease of [place] coronary artery without angina pectoris Status: Acute Plan: - Pt with hx of CAD and NSTEMI in 2011 s/p stent in the RCA (6) Tobacco abuse ICD Codes: Z72.0 - Tobacco use Status: Acute Problem Qualifiers (1) Abdominal pain: Qualified Codes: R10.84 - Generalized abdominal pain (2) Ascites: Qualified Codes: R18.8 - Other ascites Xu Hoover DO Jun 04, 2017 11:34
[2017-06-04] MEDS: SODIUM CHLOR 0.9% 1000 ML INJ 1,000 ML IV SCH ×2 (12:37→21:06)
[2017-06-04 12:44] LABS: ANA SCREEN POS (NEG)
[2017-06-04] MEDS ORDERED: LIDOCAINE 1%/EPINEPHrine 1:100,000 SOLN 20 ML VIAL ONE (13:48)
[2017-06-04] MEDS ORDERED: MIDAZOLAM HCL 2 MG/2 ML VIAL ONE ×2 (14:43→15:16)
--- NOTE | 2017-06-04 16:07 | PD.RAD ---
Post CT Procedure Prog Note Pre Procedure Diagnosis: (1) Ascites Post Procedure Diagnosis: (1) Ascites Procedure Date: Jun 04, 2017 Supervising Radiologist: Chilango Shaw Estimated blood loss: minimal Anesthesia: Local, Conscious Sedation Plan of Activity Patient to Unit: ROPU Patient Condition: Good See PACS Report for procedural detail/treatment Drainage Procedure Procedure 1 Imaging Guidance: CT Side: Right Procedure Type: Paracentesis Drainage: Suction Plan to ROPU then return to floor. Biopsy Imaging Guidance: CT Side: Right Biopsy Procedure: Other Site: omentum biopsy Specimen: Core Biopsy Plan to ROPU then return to floor. Chilango Shaw MD Jun 04, 2017 16:07
--- NOTE | 2017-06-04 16:35 | RADRPT ---
EXAM DATE/TIME: 06/04/2017 14:57 [facility] COMPARISON: CT ABDOMEN & PELVIS W CONTRAST, May 31, 2017, 14:41. CT ABDOMEN & PELVIS W CONTRAST, March 23, 2017, 4:34. INDICATIONS : Ascites with peritoneal enhancement and thickened omentum. SEDATION TIME: 45 minutes BIOPSY SITE: Bilateral abdomen. MEDICATION(S): 1.) 2.5 mg midazolam (Versed) IV 2.) 125 mcg fentanyl (Sublimaze) IV DEVICE(S): 1.) 18 gauge Temno core biopsy needle 2.) 17 gauge Temno core biopsy needle MEDICAL HISTORY : Cardiovascular disease. Hypertension. Diabetes mellitus type 2. SURGICAL HISTORY : Coronary artery stent. section. ENCOUNTER: Initial ACUITY: 1 day PAIN SCORE: 4/10 LOCATION: Right abdomen. A total of three core specimen(s) were obtained and sent to the laboratory for pathologic evaluation. PROCEDURE: 1. CT guided omental biopsy. Prior to the procedure informed consent was obtained. Any appropriate prior imaging studies were rev iewed. Using automated exposure control and adjustment of the mA and/or kV according to patient size, radiat ion dose was kept as low as reasonably achievable to obtain optimal diagnostic quality images. DICOM format image data is available electronically for review and comparison. The site was prepped in a sterile fashion. Full sterile technique was used, including cap, mask, nano rile gloves and gown and a large sterile sheet. Hand hygiene and 2% chlorhexidine and/or betadine/al cohol prep was utilized per protocol for cutaneous antisepsis. The skin and subcutaneous tissues wer e infiltrated with local anesthetic solution. With CT guidance the thickened omentum was localized. Biopsy was performed using the prescribed needl e as above. Adequate hemostasis was obtained with compression at the puncture site. Following the omental biopsy paracentesis was performed through the same dermatotomy site. Post proce dure imaging demonstrates near-complete resolution of the paracentesis with no acute finding. The patient tolerated the procedure well and there were no complications. The patient was returned to the Radiology Outpatient Unit in stable condition. CONCLUSION: Uncomplicated CT guided biopsy of the omentum. Chilango Shaw MD on June 04, 2017 at 16:32 Board Certified Radiologist. This report was verified electronically.
[2017-06-04 19:04] LABS: PERITONEAL LYMPHS 24 %; PERITONEAL MONOS 23 %; PERITONEAL POLYS(SEGS) 53 %
[2017-06-04 19:05] LABS: PERITONEAL WBC 494 /MM3 (0-10)
[2017-06-04] MEDS: ASPIRIN EC 81 MG TABEC PO SCH (21:30)
[2017-06-04] MEDS: LEVOFLOXACIN 750 MG PREMIX INJ 150 ML IV SCH (21:30)
[2017-06-04] MEDS: LISINOPRIL 5 MG TAB PO SCH (21:31)
[2017-06-05 00:20] VITALS: BP 132/82; PULSE 112; RESP 18; TEMP 98.5; O2SAT 95
[2017-06-05 03:52] LABS: C3 SERUM 140 mg/dL (90-180); C4 SERUM 16 mg/dL (ADULTS: 16-47); RHEUMATOID FACTOR 13 IU/mL (<14)
[2017-06-05 04:00] VITALS: BP 129/75; PULSE 113; RESP 20; TEMP 97.2; O2SAT 92
[2017-06-05] MEDS: ALBUMIN 25% INJ 100 ML IV SCH (05:34)
[2017-06-05 08:00] VITALS: BP 134/67; PULSE 87; PULSE 95; RESP 18; TEMP 98.7; O2SAT 98
[2017-06-05] MEDS: ONDANSETRON HCL 4 MG/2 ML VIAL IVP PRN (08:21)
[2017-06-05] MEDS: HYDROmorphone HCL PF 1 MG/ML VIAL IV PUSH PRN (08:32)
[2017-06-05] MEDS: DOCUSATE SODIUM 100 MG CAP PO SCH ×2 (08:35→22:17)
[2017-06-05] MEDS: POLYETHYLENE GLYCOL 17 GM PKG PO SCH (08:35)
[2017-06-05] MEDS: SPIRONOLACTONE 25 MG TAB PO SCH (08:36)
[2017-06-05] MEDS: DICYCLOMINE HCL 20 MG TAB PO SCH ×3 (08:36→17:22)
[2017-06-05] MEDS: PANTOPRAZOLE SOD 40 MG DELAYED RELEASE TAB PO SCH (08:36)
[2017-06-05] MEDS: SODIUM CHLORIDE 0.9% FLUSH 10 ML FLUSH IV FLUSH SCH ×2 (08:37→21:00)
[2017-06-05] MEDS: METOPROLOL TARTRATE 100 MG TAB PO SCH ×2 (08:37→22:17)
[2017-06-05 12:00] VITALS: BP 118/76; PULSE 93; RESP 18; TEMP 98.2; O2SAT 95
--- NOTE | 2017-06-05 13:52 | HHI.PR ---
Subjective Remarks Pt c/o increased abdominal pain and distension despite paracentesis yesterday with removal of 3.6 Liters. Pt states NO BM in 2 days. Pt denies flatus. No n/v. Objective Vitals Vital Signs Date Time Temp Pulse Resp B/P (MAP) Pulse Ox O2 Delivery O2 Flow Rate FiO2 06/05/17 12:00 98.2 93 18 118/76 (90) 95 06/05/17 08:00 98.7 95 18 134/67 (89) 98 06/05/17 04:00 97.2 113 20 129/75 (93) 92 06/05/17 00:20 98.5 112 18 132/82 (99) 95 06/04/17 23:37 102 06/04/17 23:00 99.3 06/04/17 20:00 100.7 105 20 136/73 (94) 95 06/04/17 17:07 98.2 105 20 138/81 (100) 95 06/04/17 16:09 109 18 158/68 (98) 93 06/04/17 15:54 98.1 111 19 162/77 (105) 92 06/05/17 06/05/17 06/06/17 15:00 23:00 07:00 Output Total 100 ml Balance -100 ml Output Urine Total 100 ml Result Diagram: 06/04/17 0647 06/04/17 0647 Imaging Last Impressions Abdomen Biopsy CT 06/04/17 0000 Signed Impressions: Service Date/Time: Sunday, June 04, 2017 14:57 - CONCLUSION: Uncomplicated CT guided biopsy of the omentum. Chilango Shaw MD Liver Ultrasound 06/02/17 0000 Signed Impressions: Service Date/Time: Friday, June 02, 2017 23:21 - CONCLUSION: 1. Cirrhosis 2. Possible mass right lobe of the liver. MRI is recommended for further evaluation if clinically indicated. 3. Moderate ascites Mert Paige MD Chest X-Ray 05/31/17 1557 Signed Impressions: Service Date/Time: Wednesday, May 31, 2017 16:05 - CONCLUSION: No acute disease. Ivan Lowe MD Abdomen/Pelvis CT 05/31/17 1403 Signed Impressions: Service Date/Time: Wednesday, May 31, 2017 14:41 - CONCLUSION: Ascites appears complex new from 03/23/17. Other than liver disease I don't see an etiology for such. If paracentesis is contemplated fluid should be sent for cytology. Tom Kellogg MD FACRADDENDUM: The above was reviewed. Of note, the patient is a stable 2 cm lesion in the medial aspect of the right hepatic lobe which shows rim enhancement, most characteristic of a benign hemangioma. Re\re aerating the above, there is stranding in the omentum which appears to be isolated. There is no associated anasarca or fluid in the mesenteric leaves. This appears to be a process isolated to the omentum itself. Although there are no discrete soft tissue lesions, findings could represent an interstitial or lymphatic type neoplastic process. Omental biopsy could be considered for further characterization. Jonathan Adame MD Cyst Biopsy Asp-Paracentesis US 05/31/17 0000 Signed Impressions: Service Date/Time: Wednesday, May 31, 2017 16:43 - CONCLUSION: Uncomplicated ultrasound guided paracentesis. Minimal fluid aspirated. Jonathan Adame MD Objective Remarks General: NAD Chest: CTA Cardiac: Regular, no murmur Abd: No bowel sounds auscultated , semi-firm, distended, diffusely tender to palpation with voluntary guarding, no rebound Ext: No edema A/P Problem List: (1) Abdominal pain ICD Codes: R10.9 - Unspecified abdominal pain Status: Acute Plan: - comgmt with GI and General Surgery - 52 y/o WF with HTN, hyperlipidemia, borderline diabetes and CAD with hx of NSETMI s/p stent to RCA in 2010. - Pt presented to the ED with complaints of worsening abdominal pain and distension. She states that she has been having issues with abd pain for the last 2 months. For the last 2 weeks she has been having increased generalized abd pain and distension which has been significantly worse over the last 2 days. - CT Abd/pelvis revealed ascites appears complex and new from 03/23/17. - She was previously seen in the ED on 03/[address] abd/pelvis at that time noted an 18mm lesion in the right lobe of the liver, with features favoring hemangioma. She was sent for followup as an outpt with GI. She had an MRI Abdomen W/O Contrast (05/13/17) with benign hemangioma in the caudate lobe of the liver corresponding to the lesion identified on CT otherwise normal examination. - Outpt workup with GI in April 2017 revealed positive ASMA, positive RACHELE, and RODRIGUEZ FibroSURE with fibrosis score of 0.04 (No fibrosis), Steatosis score of 0.78/S3 (marked or severe steatosis). Viral Hepatitis was negative. IgG subclasses were WNL, LKM Ab negative, AMA negative, Iron studies WNL, Ferritin 160 (slightly elevated), Ceruloplasmin WNL. Labs on 05/12/17 with AST 54, ALT 81, AlkPhos 92, Tbili 0.8 , DBili 0.2. - Pt was ordered to have EGD/colonoscopy and liver biopsy but these have not been done yet. - Pt had diagnostic paracentesis on 05/31 with removal of 15cc of fluid - Cell count for the fluid noted WBC count 1657 - Fluid culture with no grown x 48 hours, gram stain with few WBCs - cytology --> atypical epithelioid cells suspicious for malignancy - Repeat paracentesis 06/04/17 - 3,600ml of ascites removed - Ascitic Cell count: WBC 494, RBC 6525 - Fluid culture shows NO growth at 24 hours, gram stain showed NO organisms & NO WBCs - cytology --> pending - Pt underwent Omental Biopsy (06/04/17) --> pathology pending - SAAG >1.1 indicates portal HTN - Pain control PRN - IV Albumin - continue IV levaquin for possible SBP - Her statin was held as an outpt due to elevated LFTs - Supportive care - DVT prophylaxis with SCDs - Case discussed extensively with Radiology, Dr. Adame; GI, Dr. Damon;, and Ict Trainer Oncology, Dr. Dodge. (06/03/17) - cytology from initial paracentesis (05/31/17) was abnormal showing atypical cells suspicious for malignancy. There was a small cluster of cells suggestive for adenocarcinoma but definitive diagnosis could NOT be given. - Case d/w Dr. Damon (06/03). He recommended Colonoscopy early next week to r/ o Colon cancer. - awaiting repeat Paracentesis, cytology - awaiting Omental Biopsy, results - consider Colonoscopy for 06/07/17. Will d/w GI - DVT prophylaxis - supportive care - I anticipate continued hospitalization thru early next week - Pt with increased pain - Case d/w Radiology & General Surgery, Dr. Valdes (06/05/17) - Dr. Valdes will asses pt - Will obtain stat CT abd/pelvis with delayed images - give Relistor if CT abd does NOT show SBO - albumin, spironolactone, Bentyl (2) Ascites ICD Codes: R18.8 - Other ascites Status: Acute Plan: - See above (3) Hypertension ICD Codes: I10 - Essential (primary) hypertension Status: Acute Plan: - Home meds resumed - Monitor (4) Hyperlipidemia ICD Codes: E78.5 - Hyperlipidemia, unspecified Status: Acute Plan: - Statin was held as an outpt (5) CAD (coronary artery disease) ICD Codes: I25.10 - Atherosclerotic heart disease of [place] coronary artery without angina pectoris Status: Acute Plan: - Pt with hx of CAD and NSTEMI in 2010 s/p stent in the RCA (6) Tobacco abuse ICD Codes: Z72.0 - Tobacco use Status: Acute Problem Qualifiers (1) Abdominal pain: Qualified Codes: R10.84 - Generalized abdominal pain (2) Ascites: Qualified Codes: R18.8 - Other ascites Xu Hoover DO Jun 05, 2017 13:52
[2017-06-05] MEDS: SODIUM CHLOR 0.9% 1000 ML INJ 1,000 ML IV SCH ×2 (14:30→17:24)
--- NOTE | 2017-06-05 14:38 | HHI.GIFU ---
Subjective Remarks Resting in bed in no apparent distress. Reports mild abdominal pain, but states pain has improved. (Porsche Gaitan) Objective Vitals I&O Vital Signs Date Time Temp Pulse Resp B/P (MAP) Pulse Ox O2 Delivery O2 Flow Rate FiO2 06/05/17 12:00 98.2 93 18 118/76 (90) 95 06/05/17 08:00 98.7 95 18 134/67 (89) 98 06/05/17 04:00 97.2 113 20 129/75 (93) 92 06/05/17 00:20 98.5 112 18 132/82 (99) 95 06/04/17 23:37 102 06/04/17 23:00 99.3 06/04/17 20:00 100.7 105 20 136/73 (94) 95 06/04/17 17:07 98.2 105 20 138/81 (100) 95 06/04/17 16:09 109 18 158/68 (98) 93 06/04/17 15:54 98.1 111 19 162/77 (105) 92 I/O 06/04/17 06/04/17 06/04/17 06/05/17 06/05/17 06/05/17 07:00 15:00 23:00 07:00 15:00 23:00 Intake Total 150 ml Output Total 275 ml 1000 ml 300 ml 100 ml Balance -275 ml -1000 ml -150 ml -100 ml IV Total 150 ml Output Urine Total 275 ml 1000 ml 300 ml 100 ml # Voids 3 Laboratory Laboratory Tests Test 06/04/17 15:22 Peritoneal Fluid WBC 494 Peritoneal Fluid RBC 6525 Peritoneal Fluid Neutrophils 53 Peritoneal Fluid Lymphocytes 24 Peritoneal Fluid Monocytes 23 Peritoneal Fluid Total Protein 5.1 Peritoneal Fluid Albumin 2.7 Peritoneal Fluid LDH 543 Peritoneal Fluid Glucose 57 Date/Time Source Procedure Growth Status 06/01/17 01:35 Blood Peripheral Aerobic Blood Culture - Preliminary NO GROWTH IN 4 DAYS Resulted 06/01/17 01:35 Blood Peripheral Anaerobic Blood Culture - Preliminary NO GROWTH IN 4 DAYS Resulted 06/04/17 15:22 Fluid Peritoneal Fluid Gram Stain - Final Resulted 06/04/17 15:22 Fluid Peritoneal Fluid Body Fluid Culture - Preliminary NO GROWTH IN 24 HOURS. Resulted Imaging Last Impressions Abdomen Biopsy CT 06/04/17 0000 Signed Impressions: Service Date/Time: Sunday, June 04, 2017 14:57 - CONCLUSION: Uncomplicated CT guided biopsy of the omentum. Chilango Shaw MD Liver Ultrasound 06/02/17 0000 Signed Impressions: Service Date/Time: Friday, June 02, 2017 23:21 - CONCLUSION: 1. Cirrhosis 2. Possible mass right lobe of the liver. MRI is recommended for further evaluation if clinically indicated. 3. Moderate ascites Mert Paige MD Chest X-Ray 05/31/17 1557 Signed Impressions: Service Date/Time: Wednesday, May 31, 2017 16:05 - CONCLUSION: No acute disease. Ivan Lowe MD Abdomen/Pelvis CT 05/31/17 1403 Signed Impressions: Service Date/Time: Wednesday, May 31, 2017 14:41 - CONCLUSION: Ascites appears complex new from 03/23/17. Other than liver disease I don't see an etiology for such. If paracentesis is contemplated fluid should be sent for cytology. Tom Kellogg MD FACRADDENDU: The above was reviewed. Of note, the patient is a stable 2 cm lesion in the medial aspect of the right hepatic lobe which shows rim enhancement, most characteristic of a benign hemangioma. Re\re aerating the above, there is stranding in the omentum which appears to be isolated. There is no associated anasarca or fluid in the mesenteric leaves. This appears to be a process isolated to the omentum itself. Although there are no discrete soft tissue lesions, findings could represent an interstitial or lymphatic type neoplastic process. Omental biopsy could be considered for further characterization. Jonathan Adame MD Cyst Biopsy Asp-Paracentesis US 05/31/17 0000 Signed Impressions: Service Date/Time: Wednesday, May 31, 2017 16:43 - CONCLUSION: Uncomplicated ultrasound guided paracentesis. Minimal fluid aspirated. Jonathan Adame MD Physical Exam HEENT: Normocephalic; atraumatic; no jaundice. CHEST: CTA CARDIAC: RRR ABDOMEN: Semi firm, distended, diffuse TTP with guarding; bowel sounds are present in all four quadrants. EXTREMITIES: Trace BLE edema SKIN: Normal; no rash; no jaundice. HOTEL ASSOCIATE: No focal deficits; alert and oriented times three. (Porsche Gaitan) Assessment and Plan Plan ASSESSMENT - New onset ascites, spontaneous bacterial peritonitis. S/P US Paracentesis ()---> 15cc. Peritoneal 1657, RBC 349. Fluid cultures no growth in 48 hours. SAAG> 1.1, indicating portal hypertension as the etiology for her ascites. Cytology atypical epithelioid cells are present, suspicious for malignancy. SAAG suggests portal htn, but recently had fibrosis score of 0.04 on RODRIGUEZ fibrosure. Liver US (06/02/17)--> Cirrhosis, possible mass right lobe of the liver. MRI is recommended for further evaluation if clinically indicated, moderate ascites. 2D echo pending. Tumor Markers- Ca 125 172.6, Ca 19-9 17.5, Ca15-3 24.2, CEA 0.8, AFP 1.2. Suspect malignant ascites. S/P Repeat CT guided Paracentesis (06/04), cytology pending. Spironolactone. Levaquin. - Abdominal pain, nausea, vomiting. CT scan abdomen and pelvis (05/31/17)---> Ascites appears complex new from 03/23/17. Other than liver disease I don't see an etiology for such. If paracentesis is contemplated fluid should be sent for cytology. ADDENDUM: The above was reviewed. Of note, the patient is a stable 2 cm lesion in the medial aspect of the right hepatic lobe which shows rim enhancement, most characteristic of a benign hemangioma. Re\re aerating the above, there is stranding in the omentum which appears to be isolated. There is no associated anasarca or fluid in the mesenteric leaves. This appears to be a process isolated to the omentum itself. Although there are no discrete soft tissue lesions, findings could represent an interstitial or lymphatic type neoplastic process. Omental biopsy could be considered for further characterization. S/P CT guided biopsy of the omentum (06/04/17). - Liver mass, liver US as above, with elevated Ca 125 at 172.6, cytology from paracentesis suspicious for malignancy. ? malignant ascites r/t metastatic disease, ? ovarian. - Portal hypertension. CT with small liver, SAAG > 1.1, indicating portal hypertension, mild coagulopathy, and hypoalbuminemia. S/P Outpatient workup April of 2017- ASMA (+), RACHELE (+), RODRIGUEZ Fibrosure with fibrosis score of 0.04, steatosis score of 0.78/S3 (marked or severe steatosis). Viral hepatitis was negative. IgG subclasses unremarkable. AMA negative. Iron studies unremarkable, Ceruloplasmin unremarkable. Pt with portal htn, although fibrosis score of 0.04 in Oct. - (+) RACHELE. Titer, RACHELE workup in process - Leukocytosis. WBC 16.9. BCx no growth 4 day. Peritoneal fluid no growth 72 hours. PLAN - Await Omental biopsy results - Await paracentesis cytology results - Oncology following - GS following - 2 gram sodium diet - Cont. Spironolactone - Cont. Levaquin for now - RACHELE titer and (+) RACHELE workup - 2D echo pending - Monitor labs - Supportive care - Further recommendations to follow based on results of above Patient seen and examined by Dr. Damon and myself and this note is written on his behalf. (Porsche Gaitan) Physician Comments Seen and examined, plan as above, will follow up with you. (Haile Damon MD) Porsche Gaitan Jun 05, 2017 14:38 Haile Damon MD Jun 05, 2017 23:11
[2017-06-05] MEDS ORDERED: METHYLNALTREXONE BROMIDE 12 MG/0.6 ML VIAL SQ ONE (15:30)
[2017-06-05] MEDS: ALBUMIN 25% INJ 50 ML IV SCH (15:45)
[2017-06-05 16:00] VITALS: BP 121/64; PULSE 86; RESP 16; TEMP 98; O2SAT 96
--- NOTE | 2017-06-05 16:03 | RADRPT ---
EXAM DATE/TIME: 06/04/2017 14:57 [facility] COMPARISON: No previous studies available for comparison. INDICATIONS : Ascites SEDATION TIME: 45 minutes MEDICATION(S): 1.) 2.5 mg midazolam (Versed) IV 2.) 125 mcg fentanyl (Sublimaze) DEVICE(S): 1.) 6 Fr Catheter drainage kit Total volume of 3600 cc of clear, yellow fluid was removed. Fluid was sent for laboratory ordered studies. MEDICAL HISTORY : Cardiovascular disease. Hypertension. Diabetes mellitus type 2. SURGICAL HISTORY : Coronary artery stent. section. ENCOUNTER: Initial ACUITY: 1 day PAIN SCORE: 10 LOCATION: Bilateral upper quadrant PROCEDURE: PROCEDURE : 1. CT-guidance for abdominal paracentesis. 2. Paracentesis. The risks, benefits and alternatives to CT-guided paracentesis were explained to the patient in detai l, lay terms including the risk of bleeding and infection. Oral and written informed consent was obt ained. Using automated exposure control and adjustment of the mA and/or kV according to patient size, radiation dose was kept as low as reasonably achievable to obtain optimal diagnostic quality images. DICOM format image data is available electronically for review and comparison. The patient was scanned to select approach for paracentesis. The skin was prepped in sterile fashion . The skin and subcutaneous tissues were infiltrated with Lidocaine solution. A 6 Haitian catheter w as introduced to the peritoneal cavity and ascites was collected. Post procedure scanning reveals no evidence of hematoma or other complication. The patient tolerated the procedure well and left the CT suite in good condition. CONCLUSION: Uncomplicated CT Guided paracentesis with removal of 3.6 L of fluid. Sample was saved and sent to the lab for evaluation. Chilango Shaw MD on June 05, 2017 at 15:59 Board Certified Radiologist. This report was verified electronically.
[2017-06-05 16:56] LABS: AUTOMATED NEUTROPHIL # 11.9 TH/MM3 (1.8-7.7); BASOPHIL % 0.1 % (0.0-2.0); EOSINOPHIL # 0.1 TH/MM3 (0-0.4); EOSINOPHIL % 0.9 % (0.0-4.0); HEMATOCRIT 31.9 % (35.0-46.0); LYMPH % 8.4 % (9.0-44.0); LYMPHOCYTE # 1.2 TH/MM3 (1.0-4.8); MEAN CELL VOLUME 89.4 FL (80.0-100.0); MEAN CORPUSCULAR HEMOGLOBIN 32.3 PG (27.0-34.0); MONO % 10.8 % (0.0-8.0); NEUT % 79.8 % (16.0-70.0); PLATELET COUNT 360 TH/MM3 (150-450); RED BLOOD COUNT 3.57 MIL/MM3 (4.00-5.30); RED CELL DISTRIBUTION WIDTH 13.5 % (11.6-17.2); WHITE BLOOD COUNT 14.9 TH/MM3 (4.0-11.0)
[2017-06-05 16:59] LABS: MAGNESIUM 1.8 MG/DL (1.5-2.5); POTASSIUM 3.7 MEQ/L (3.5-5.1)
[2017-06-05 17:03] LABS: HEMO FLAGS AUTO DIFF; MEAN CORPUSCULAR HGB CONC 36.1 % (32.0-36.0)
[2017-06-05] MEDS ORDERED: DIATRIZOATE MEGLUM/DIATRIZOATE SOD 9 ML CUP PO ONE (17:15)
[2017-06-05 17:51] LABS: SCAN/DIFF AUTO DIFF CONFIRMED
[2017-06-05] MEDS ORDERED: IOHEXOL 350 MG/ML 10 ML VIAL (for RAD DIAG) IVCONTRAST ONE (20:18)
--- NOTE | 2017-06-05 20:48 | RADRPT ---
EXAM DATE/TIME: 06/05/2017 20:16 [facility] COMPARISON: CT GUIDED ABD PARACENTESIS, June 04, 2017, 14:57. CT ABDOMEN & PELVIS W CONTRAST, May 31 017, 14:41. INDICATIONS : Diffuse abdominal pain. IV CONTRAST: 95 cc Omnipaque 350 (iohexol) IV ORAL CONTRAST: Prescribed oral contrast ingested. RADIATION DOSE: 20.34 CTDIvol (mGy) MEDICAL HISTORY : Cardiovascular disease. Hypertension. Diabetes mellitus type 2.CAD. SURGICAL HISTORY : section. Cardiac catherization. ENCOUNTER: Initial ACUITY: 1 day PAIN SCALE: 8/10 LOCATION: Bilateral abdomen TECHNIQUE: Volumetric scanning of the abdomen and pelvis was performed. Using automated exposure control and ad justment of the mA and/or kV according to patient size, radiation dose was kept as low as reasonably achievable to obtain optimal diagnostic quality images. DICOM format image data is available electro nically for review and comparison. FINDINGS: LOWER LUNGS: There are small bilateral pleural effusions, left larger than right with associated compressive atele ctasis in the lower lobes. The left pleural effusion has slightly increased in volume since yesterday 's study. LIVER: Homogeneous density with a stable lesion in the right lobe measuring 2.1 cm. Features favor a hemangi gaurang. There is no dilation of the biliary tree. No calcified gallstones. SPLEEN: Normal size without lesion. PANCREAS: Within normal limits. KIDNEYS: Normal in size and shape. There is no mass, stone or hydronephrosis. ADRENAL GLANDS: Within normal limits. VASCULAR: There is no aortic aneurysm. There is mild atherosclerotic disease. Arterial and venous vasculature r emains patent. BOWEL/MESENTERY: The stomach, small bowel, and colon demonstrate no acute abnormality. There is no free intraperitone al air. There is a small volume of free fluid in the abdomen and pelvis, increased in volume compared to the post procedure paracentesis images. There is stable thickening of the omentum. Small volume o f mesenteric fluid is also present. There is mild enhancement/thickening of the peritoneal lining. ABDOMINAL WALL: Within normal limits. RETROPERITONEUM: There is stable mild lymphadenopathy in the left gastric region and destinee hepatis. BLADDER: No wall thickening or mass. REPRODUCTIVE: Within normal limits. INGUINAL: There is no lymphadenopathy or hernia. MUSCULOSKELETAL: There are degenerative changes of the spine but no lytic or blastic lesion is seen. CONCLUSION: 1. No acute change is identified to explain the diffuse abdominal pain. However, there is persistent fluid within the abdomen and pelvis along with thickening of the omentum and mild enhancement/thicken ing of the peritoneal lining. The volume of free fluid in the abdomen and pelvis has slightly increas ed compared to yesterday's CT performed following paracentesis. 2. Small bilateral pleural effusions, left larger than right. The left pleural effusion has slightly increased in volume since yesterday's CT. There is associated compressive atelectasis in the lower lo bes. 3. Stable 2.1 cm right lobe liver lesion. Although incompletely characterized imaging features favor a hemangioma. Chilango Shaw MD on June 05, 2017 at 20:38 Board Certified Radiologist. This report was verified electronically.
[2017-06-05 20:56] VITALS: BP 127/77; PULSE 103; RESP 20; TEMP 98.2; O2SAT 93
[2017-06-05] MEDS: LEVOFLOXACIN 750 MG PREMIX INJ 150 ML IV SCH (22:16)
[2017-06-05] MEDS: LISINOPRIL 5 MG TAB PO SCH (22:17)
[2017-06-05] MEDS: ASPIRIN EC 81 MG TABEC PO SCH (22:17)
[2017-06-06] VITALS (7 sets, daily range): BP systolic 106–151; BP diastolic 59–89; PULSE 91–104; RESP 18–20; TEMP 97.8–98.6; O2SAT 93–95
[2017-06-06] MEDS: ALBUMIN 25% INJ 50 ML IV SCH ×2 (03:34→16:09)
[2017-06-06 03:50] LABS: ACTIN AB IGG 36 U
[2017-06-06] MEDS: SODIUM CHLOR 0.9% 1000 ML INJ 1,000 ML IV SCH ×2 (05:05→18:25)
[2017-06-06] MEDS: METOPROLOL TARTRATE 100 MG TAB PO SCH ×2 (09:00→20:47)
[2017-06-06] MEDS: SODIUM CHLORIDE 0.9% FLUSH 10 ML FLUSH IV FLUSH SCH ×2 (09:00→20:47)
--- NOTE | 2017-06-06 09:24 | HHI.PR ---
Subjective Subjective Notes no new complaints pain unchanged Objective Vitals/I&O Vital Signs Date Time Temp Pulse Resp B/P (MAP) Pulse Ox O2 Delivery O2 Flow Rate FiO2 06/06/17 08:00 98.0 91 18 106/59 (75) 94 Labs Laboratory Tests Test 06/05/17 16:20 06/06/17 05:52 White Blood Count 14.9 Red Blood Count 3.57 Hemoglobin 11.5 Hematocrit 31.9 Mean Corpuscular Volume 89.4 Mean Corpuscular Hemoglobin 32.3 Mean Corpuscular Hemoglobin Concent 36.1 Red Cell Distribution Width 13.5 Platelet Count 360 Mean Platelet Volume 7.3 Neutrophils (%) (Auto) 79.8 Lymphocytes (%) (Auto) 8.4 Monocytes (%) (Auto) 10.8 Eosinophils (%) (Auto) 0.9 Basophils (%) (Auto) 0.1 Neutrophils # (Auto) 11.9 Lymphocytes # (Auto) 1.2 Monocytes # (Auto) 1.6 Eosinophils # (Auto) 0.1 Basophils # (Auto) 0.0 CBC Comment AUTO DIFF Differential Comment AUTO DIFF CONFIRMED Blood Urea Nitrogen 6 Creatinine 0.53 Random Glucose 100 Calcium Level 8.3 Magnesium Level 1.8 Sodium Level 135 Potassium Level 3.7 Chloride Level 98 Carbon Dioxide Level 28.0 Anion Gap 9 Estimat Glomerular Filtration Rate 121 Lactic Acid Level 1.0 Date/Time Source Procedure Growth Status 06/01/17 01:35 Blood Peripheral Aerobic Blood Culture - Preliminary NO GROWTH IN 4 DAYS Resulted 06/01/17 01:35 Blood Peripheral Anaerobic Blood Culture - Preliminary NO GROWTH IN 4 DAYS Resulted 06/04/17 15:22 Fluid Peritoneal Fluid Gram Stain - Final Resulted 06/04/17 15:22 Fluid Peritoneal Fluid Body Fluid Culture - Preliminary NO GROWTH IN 24 HOURS. Resulted Radiology Last Impressions Abdomen/Pelvis CT 06/05/17 0000 Signed Impressions: Service Date/Time: Wednesday, June 05, 2017 20:16 - CONCLUSION: 1. No acute change is identified to explain the diffuse abdominal pain. However, there is persistent fluid within the abdomen and pelvis along with thickening of the omentum and mild enhancement/thickening of the peritoneal lining. The volume of free fluid in the abdomen and pelvis has slightly increased compared to yesterday's CT performed following paracentesis. 2. Small bilateral pleural effusions, left larger than right. The left pleural effusion has slightly increased in volume since yesterday's CT. There is associated compressive atelectasis in the lower lobes. 3. Stable 2.1 cm right lobe liver lesion. Although incompletely characterized imaging features favor a hemangioma. Chilango Shaw MD Paracentesis 06/04/17 0000 Signed Impressions: Service Date/Time: Sunday, June 04, 2017 14:57 - CONCLUSION: Uncomplicated CT Guided paracentesis with removal of 3.6 L of fluid. Sample was saved and sent to the lab for evaluation. Chilango Shaw MD Abdomen Biopsy CT 06/04/17 0000 Signed Impressions: Service Date/Time: Sunday, June 04, 2017 14:57 - CONCLUSION: Uncomplicated CT guided biopsy of the omentum. Chilango Shaw MD Liver Ultrasound 06/02/17 0000 Signed Impressions: Service Date/Time: Friday, June 02, 2017 23:21 - CONCLUSION: 1. Cirrhosis 2. Possible mass right lobe of the liver. MRI is recommended for further evaluation if clinically indicated. 3. Moderate ascites Mert Paige MD Chest X-Ray 05/31/17 1557 Signed Impressions: Service Date/Time: Wednesday, May 31, 2017 16:05 - CONCLUSION: No acute disease. Ivan Lowe MD Cyst Biopsy Asp-Paracentesis US 05/31/17 0000 Signed Impressions: Service Date/Time: Wednesday, May 31, 2017 16:43 - CONCLUSION: Uncomplicated ultrasound guided paracentesis. Minimal fluid aspirated. Jonathan Adame MD Last Impressions Chest X-Ray 05/31/17 1557 Signed Impressions: Service Date/Time: Wednesday, May 31, 2017 16:05 - CONCLUSION: No acute disease. Ivan Lowe MD Abdomen/Pelvis CT 05/31/17 1403 Signed Impressions: Service Date/Time: Wednesday, May 31, 2017 14:41 - CONCLUSION: Ascites appears complex new from 03/23/17. Other than liver disease I don't see an etiology for such. If paracentesis is contemplated fluid should be sent for cytology. Tom Kellogg MD FACR Cyst Biopsy Asp-Paracentesis US 05/31/17 0000 Signed Impressions: Service Date/Time: Wednesday, May 31, 2017 16:43 - CONCLUSION: Uncomplicated ultrasound guided paracentesis. Minimal fluid aspirated. Jonathan Adame MD Narrative Exam pos tenderness fullness A/P Assessment and Plan pt with ascites suspicious for malignancy s/p omental bx path pending await results of pathology for further recommendations no intervention at present Janak Musa MD Jun 06, 2017 09:24
[2017-06-06] MEDS: SPIRONOLACTONE 25 MG TAB PO SCH (09:31)
[2017-06-06] MEDS: PANTOPRAZOLE SOD 40 MG DELAYED RELEASE TAB PO SCH (09:31)
[2017-06-06] MEDS: DOCUSATE SODIUM 100 MG CAP PO SCH ×2 (09:32→20:47)
[2017-06-06] MEDS: DICYCLOMINE HCL 20 MG TAB PO SCH ×2 (09:33→13:06)
[2017-06-06] MEDS: POLYETHYLENE GLYCOL 17 GM PKG PO SCH (09:33)
--- NOTE | 2017-06-06 12:27 | HHI.PR ---
Subjective Remarks Patient continues to have abdominal pain worse on the right side last BM two days ago denies flatus Objective Vitals Vital Signs Date Time Temp Pulse Resp B/P (MAP) Pulse Ox O2 Delivery O2 Flow Rate FiO2 06/06/17 08:00 98.0 91 18 106/59 (75) 94 06/06/17 05:51 97.9 91 20 132/77 (95) 95 06/06/17 02:48 95 06/06/17 01:02 97.8 95 20 115/64 (81) 93 06/05/17 20:56 98.2 103 20 127/77 (94) 93 06/05/17 16:00 98.0 86 16 121/64 (83) 96 06/06/17 06/06/17 06/07/17 15:00 23:00 07:00 Output Total 1000 ml Balance -1000 ml Output Urine Total 1000 ml Result Diagram: 06/05/17 1620 06/05/17 1620 Other Results Laboratory Tests Test 06/03/17 17:11 06/04/17 06:47 06/04/17 15:22 06/05/17 16:20 White Blood Count 16.3 TH/MM3 15.9 TH/MM3 14.9 TH/MM3 Red Blood Count 3.82 MIL/MM3 4.12 MIL/MM3 3.57 MIL/MM3 Hemoglobin 11.8 GM/DL 12.5 GM/DL 11.5 GM/DL Hematocrit 35.1 % 37.9 % 31.9 % Mean Corpuscular Volume 92.0 FL 91.9 FL 89.4 FL Mean Corpuscular Hemoglobin 30.9 PG 30.4 PG 32.3 PG Mean Corpuscular Hemoglobin Concent 33.5 % 33.1 % 36.1 % Red Cell Distribution Width 13.4 % 13.7 % 13.5 % Platelet Count 444 TH/MM3 498 TH/MM3 360 TH/MM3 Mean Platelet Volume 7.5 FL 7.4 FL 7.3 FL Prothrombin Time 11.7 SEC Prothromb Time International Ratio 1.1 RATIO Activated Partial Thromboplast Time 35.5 SEC Lactate Dehydrogenase 162 U/L Total Protein 7.4 GM/DL 7.5 GM/DL Neutrophils (%) (Auto) 78.6 % 79.8 % Lymphocytes (%) (Auto) 9.5 % 8.4 % Monocytes (%) (Auto) 10.7 % 10.8 % Eosinophils (%) (Auto) 1.0 % 0.9 % Basophils (%) (Auto) 0.2 % 0.1 % Neutrophils # (Auto) 12.5 TH/MM3 11.9 TH/MM3 Lymphocytes # (Auto) 1.5 TH/MM3 1.2 TH/MM3 Monocytes # (Auto) 1.7 TH/MM3 1.6 TH/MM3 Eosinophils # (Auto) 0.2 TH/MM3 0.1 TH/MM3 Basophils # (Auto) 0.0 TH/MM3 0.0 TH/MM3 CBC Comment DIFF FINAL AUTO DIFF Differential Comment AUTO DIFF CONFIRMED Blood Urea Nitrogen 5 MG/DL 6 MG/DL Creatinine 0.62 MG/DL 0.53 MG/DL Random Glucose 94 MG/DL 100 MG/DL Albumin 3.6 GM/DL Calcium Level 8.8 MG/DL 8.3 MG/DL Alkaline Phosphatase 70 U/L Aspartate Amino Transf (AST/SGOT) 18 U/L Alanine Aminotransferase (ALT/SGPT) 17 U/L Total Bilirubin 0.6 MG/DL Sodium Level 132 MEQ/L 135 MEQ/L Potassium Level 3.6 MEQ/L 3.7 MEQ/L Chloride Level 97 MEQ/L 98 MEQ/L Carbon Dioxide Level 24.7 MEQ/L 28.0 MEQ/L Anion Gap 10 MEQ/L 9 MEQ/L Estimat Glomerular Filtration Rate 101 ML/MIN 121 ML/MIN Peritoneal Fluid WBC 494 /MM3 Peritoneal Fluid RBC 6525 /MM3 Peritoneal Fluid Neutrophils 53 % Peritoneal Fluid Lymphocytes 24 % Peritoneal Fluid Monocytes 23 % Peritoneal Fluid Total Protein 5.1 GM/DL Peritoneal Fluid Albumin 2.7 G/DL Peritoneal Fluid LDH 543 U/L Peritoneal Fluid Glucose 57 MG/DL Magnesium Level 1.8 MG/DL Test 06/06/17 05:52 Lactic Acid Level 1.0 mmol/L Imaging Last Impressions Abdomen Biopsy CT 06/04/17 0000 Signed Impressions: Service Date/Time: Sunday, June 04, 2017 14:57 - CONCLUSION: Uncomplicated CT guided biopsy of the omentum. Chilango Shaw MD Liver Ultrasound 06/02/17 0000 Signed Impressions: Service Date/Time: Friday, June 02, 2017 23:21 - CONCLUSION: 1. Cirrhosis 2. Possible mass right lobe of the liver. MRI is recommended for further evaluation if clinically indicated. 3. Moderate ascites Mert Paige MD Chest X-Ray 05/31/17 1557 Signed Impressions: Service Date/Time: Wednesday, May 31, 2017 16:05 - CONCLUSION: No acute disease. Ivan Lowe MD Abdomen/Pelvis CT 05/31/17 1403 Signed Impressions: Service Date/Time: Wednesday, May 31, 2017 14:41 - CONCLUSION: Ascites appears complex new from 03/23/17. Other than liver disease I don't see an etiology for such. If paracentesis is contemplated fluid should be sent for cytology. Tom Kellogg MD FACRADDENDUM: The above was reviewed. Of note, the patient is a stable 2 cm lesion in the medial aspect of the right hepatic lobe which shows rim enhancement, most characteristic of a benign hemangioma. Re\re aerating the above, there is stranding in the omentum which appears to be isolated. There is no associated anasarca or fluid in the mesenteric leaves. This appears to be a process isolated to the omentum itself. Although there are no discrete soft tissue lesions, findings could represent an interstitial or lymphatic type neoplastic process. Omental biopsy could be considered for further characterization. Jonathan Adame MD Cyst Biopsy Asp-Paracentesis US 05/31/17 0000 Signed Impressions: Service Date/Time: Wednesday, May 31, 2017 16:43 - CONCLUSION: Uncomplicated ultrasound guided paracentesis. Minimal fluid aspirated. Jonathan Adame MD Objective Remarks General: NAD Chest: CTA Cardiac: Regular, no murmur Abd: No bowel sounds auscultated , semi-firm, distended, diffusely tender to palpation, no rebound Ext: No edema A/P Problem List: (1) Abdominal pain ICD Codes: R10.9 - Unspecified abdominal pain Status: Acute Plan: - comgmt with GI and General Surgery - 52 y/o WF with HTN, hyperlipidemia, borderline diabetes and CAD with hx of NSETMI s/p stent to RCA in 2010. - Pt presented to the ED with complaints of worsening abdominal pain and distension. She states that she has been having issues with abd pain for the last 2 months. For the last 2 weeks she has been having increased generalized abd pain and distension which has been significantly worse over the last 2 days. - CT Abd/pelvis revealed ascites appears complex and new from 03/23/17. - She was previously seen in the ED on 03/[address] abd/pelvis at that time noted an 18mm lesion in the right lobe of the liver, with features favoring hemangioma. She was sent for followup as an outpt with GI. She had an MRI Abdomen W/O Contrast (05/13/17) with benign hemangioma in the caudate lobe of the liver corresponding to the lesion identified on CT otherwise normal examination. - Outpt workup with GI in April 2017 revealed positive ASMA, positive RACHELE, and RODRIGUEZ FibroSURE with fibrosis score of 0.04 (No fibrosis), Steatosis score of 0.78/S3 (marked or severe steatosis). Viral Hepatitis was negative. IgG subclasses were WNL, LKM Ab negative, AMA negative, Iron studies WNL, Ferritin 160 (slightly elevated), Ceruloplasmin WNL. Labs on 05/12/17 with AST 54, ALT 81, AlkPhos 92, Tbili 0.8 , DBili 0.2. - Pt was ordered to have EGD/colonoscopy and liver biopsy but these have not been done yet. - Pt had diagnostic paracentesis on 05/31 with removal of 15cc of fluid - Cell count for the fluid noted WBC count 1657 - Fluid culture with no grown x 48 hours, gram stain with few WBCs - cytology --> atypical epithelioid cells suspicious for malignancy - Repeat paracentesis 06/04/17 - 3,600ml of ascites removed - Ascitic Cell count: WBC 494, RBC 6525 - Fluid culture shows NO growth at 24 hours, gram stain showed NO organisms & NO WBCs - cytology --> pending - Pt underwent Omental Biopsy (06/04/17) --> pathology pending - SAAG >1.1 indicates portal HTN - Pain control PRN - IV Albumin - continue IV levaquin for possible SBP - Her statin was held as an outpt due to elevated LFTs - Supportive care - DVT prophylaxis with SCDs - Case discussed extensively with Radiology, Dr. Adame; GI, Dr. Damon;, and Animal Husbandry Manager Oncology, Dr. Dodge. (06/03/17) - cytology from initial paracentesis (05/31/17) was abnormal showing atypical cells suspicious for malignancy. There was a small cluster of cells suggestive for adenocarcinoma but definitive diagnosis could NOT be given. - Case d/w Dr. Damon (06/03). He recommended Colonoscopy early next week to r/ o Colon cancer. - awaiting repeat Paracentesis, cytology - awaiting Omental Biopsy, results - consider Colonoscopy for 06/07/17. Will d/w GI - DVT prophylaxis - supportive care - I anticipate continued hospitalization thru early next week - Pt with increased pain - Case d/w Radiology & General Surgery, Dr. Valdes (06/05/17) - Dr. Valdes will asses pt - Will obtain stat CT abd/pelvis with delayed images - give Relistor if CT abd does NOT show SBO - albumin, spironolactone, Bentyl 06/06/17 CT scan reviewed no acute change identified to explain the diffuse abdominal pain. persistent fluid within the abdomen and pelvis along with thickening of the omentum and mild enhancement/thickening of the peritoneal lining. The volume free fluid in the abdomen and pelvis has slightly increased compared to yesterday's CT performed following paracentesis. Small bilateral pleural effusions, left larger than right. The left pleural effusion has slightly increased in volume since yesterday CT. There is associated compressive atelectasis in the lung lower bases. Stable 2.1 cm right lobe liver lesion. Although incompletely characterized imaging features favoring a hemangioma Give Relistor 1 Continue albumin, spironolactone and Bentyl Await biopsy results from omental biopsy (2) Ascites ICD Codes: R18.8 - Other ascites Status: Acute Plan: - See above (3) Hypertension ICD Codes: I10 - Essential (primary) hypertension Status: Acute Plan: - Home meds resumed - Monitor (4) Hyperlipidemia ICD Codes: E78.5 - Hyperlipidemia, unspecified Status: Acute Plan: - Statin was held as an outpt (5) CAD (coronary artery disease) ICD Codes: I25.10 - Atherosclerotic heart disease of [place] coronary artery without angina pectoris Status: Acute Plan: - Pt with hx of CAD and NSTEMI in 2010 s/p stent in the RCA (6) Tobacco abuse ICD Codes: Z72.0 - Tobacco use Status: Acute (7) Constipation ICD Codes: K59.00 - Constipation, unspecified Plan: Stop Bentyl Relistor x 1 continue colace KUB in AM Assessment and Plan Patient examined. Assessment and plan formulated with Carla Dey PA-C. I agree with the above. Problem Qualifiers (1) Abdominal pain: Qualified Codes: R10.84 - Generalized abdominal pain (2) Ascites: Qualified Codes: R18.8 - Other ascites Carla Dey Jun 06, 2017 12:27 Xu Hoover DO Jun 07, 2017 22:21
[2017-06-06] MEDS: HYDROmorphone HCL PF 1 MG/ML VIAL IV PUSH PRN ×2 (13:07→20:55)
[2017-06-06] MEDS ORDERED: METHYLNALTREXONE BROMIDE 12 MG/0.6 ML VIAL SQ ONE (13:15)
[2017-06-06 20:06] LABS: BLOOD, URINE TRACE (NEG); COMMENT (UR) CULT NOT INDICATED; CULTURE IF INDICATED CULT NOT INDICATED; GLUCOSE,URINE NEG (NEG); KETONE, URINE 80 mg/dL (NEG); MUCUS URINE FEW /lpf (OCC); NITRITE,URINE NEG (NEG); SQUAMOUS EPITHELIAL CELL URINE 4 /hpf (0-5); URINE COLOR YELLOW (YELLW/STRAW)
[2017-06-06] MEDS: ASPIRIN EC 81 MG TABEC PO SCH (20:47)
[2017-06-06] MEDS: LISINOPRIL 5 MG TAB PO SCH (20:47)
[2017-06-06] MEDS: LEVOFLOXACIN 750 MG PREMIX INJ 150 ML IV SCH (20:48)
[2017-06-06] MEDS: ONDANSETRON HCL 4 MG/2 ML VIAL IVP PRN (20:57)
[2017-06-07 01:08] VITALS: BP 134/80; PULSE 106; RESP 20; TEMP 98; O2SAT 92
[2017-06-07] MEDS: CALCIUM CARBONATE 500 MG CHEWABLE TAB CHEW PRN ×5 (03:46→23:21)
[2017-06-07] MEDS: ALBUMIN 25% INJ 50 ML IV SCH ×2 (03:47→18:15)
[2017-06-07 06:10] VITALS: BP 129/82; PULSE 105; RESP 20; TEMP 98; O2SAT 93
[2017-06-07] MEDS: SODIUM CHLOR 0.9% 1000 ML INJ 1,000 ML IV SCH ×2 (06:35→21:05)
--- NOTE | 2017-06-07 07:23 | RADRPT ---
EXAM DATE/TIME: 06/07/2017 05:50 [facility] COMPARISON: CT ABDOMEN & PELVIS W CONTRAST, June 05, 2017, 20:16. INDICATIONS : Abdominal pain and distention MEDICAL HISTORY : Cardiovascular disease. Diabetes mellitus type II. Hypertension. SURGICAL HISTORY : section. cardiac catheterization ENCOUNTER: Subsequent ACUITY: 2 days PAIN SCORE: 7/10 LOCATION: Bilateral abdomen FINDINGS: Contrast remains evident in the proximal colon. Intestinal gas pattern is otherwise unremarkable. The re is no significant ileus. There is no evidence of free air. Bony structures are intact CONCLUSION: No evidence of significant ileus or free air. Jas Betancourt MD on June 07, 2017 at 7:18 Board Certified Radiologist. This report was verified electronically.
[2017-06-07 08:01] VITALS: BP 131/83; PULSE 106; RESP 19; TEMP 98.4; O2SAT 92
[2017-06-07] MEDS: SODIUM CHLORIDE 0.9% FLUSH 10 ML FLUSH IV FLUSH SCH ×2 (09:00→21:00)
[2017-06-07] MEDS: SPIRONOLACTONE 25 MG TAB PO SCH (09:12)
[2017-06-07] MEDS: METOPROLOL TARTRATE 100 MG TAB PO SCH ×2 (09:12→20:09)
[2017-06-07] MEDS: PANTOPRAZOLE SOD 40 MG DELAYED RELEASE TAB PO SCH (09:12)
[2017-06-07] MEDS: DOCUSATE SODIUM 100 MG CAP PO SCH ×2 (09:12→20:09)
[2017-06-07] MEDS: POLYETHYLENE GLYCOL 17 GM PKG PO SCH (09:13)
[2017-06-07] MEDS: LACTULOSE SYRUP 20 GM/30 ML CUP PO PRN (09:25)
[2017-06-07 11:50] VITALS: BP 129/83; PULSE 94; RESP 20; TEMP 98.3; O2SAT 94
--- NOTE | 2017-06-07 12:01 | HHI.PR ---
Subjective Remarks comfortable. Objective Vitals heart reg lung cta abd s/mild distention/bs ext no edema Vital Signs Date Time Temp Pulse Resp B/P (MAP) Pulse Ox O2 Delivery O2 Flow Rate FiO2 06/07/17 11:50 98.3 94 20 129/83 (98) 94 06/07/17 08:01 98.4 106 19 131/83 (99) 92 06/07/17 06:10 98.0 105 20 129/82 (98) 93 06/07/17 01:08 98.0 106 20 134/80 (98) 92 06/06/17 21:18 98.6 104 20 151/89 (109) 94 06/06/17 16:00 98.4 91 18 138/68 (91) 94 06/06/17 12:00 98.4 93 18 126/84 (98) 93 Result Diagram: 06/05/17 1620 06/05/17 1620 Imaging Last Impressions Abdomen Biopsy CT 06/04/17 0000 Signed Impressions: Service Date/Time: Sunday, June 04, 2017 14:57 - CONCLUSION: Uncomplicated CT guided biopsy of the omentum. Chilango Shaw MD Liver Ultrasound 06/02/17 0000 Signed Impressions: Service Date/Time: Friday, June 02, 2017 23:21 - CONCLUSION: 1. Cirrhosis 2. Possible mass right lobe of the liver. MRI is recommended for further evaluation if clinically indicated. 3. Moderate ascites Mert Paige MD Chest X-Ray 05/31/17 1557 Signed Impressions: Service Date/Time: Wednesday, May 31, 2017 16:05 - CONCLUSION: No acute disease. Ivan Lowe MD Abdomen/Pelvis CT 05/31/17 1403 Signed Impressions: Service Date/Time: Wednesday, May 31, 2017 14:41 - CONCLUSION: Ascites appears complex new from 03/23/17. Other than liver disease I don't see an etiology for such. If paracentesis is contemplated fluid should be sent for cytology. Tom Kellogg MD FACRADDENDUM: The above was reviewed. Of note, the patient is a stable 2 cm lesion in the medial aspect of the right hepatic lobe which shows rim enhancement, most characteristic of a benign hemangioma. Re\re aerating the above, there is stranding in the omentum which appears to be isolated. There is no associated anasarca or fluid in the mesenteric leaves. This appears to be a process isolated to the omentum itself. Although there are no discrete soft tissue lesions, findings could represent an interstitial or lymphatic type neoplastic process. Omental biopsy could be considered for further characterization. Jonathan Adame MD Cyst Biopsy Asp-Paracentesis US 05/31/17 0000 Signed Impressions: Service Date/Time: Wednesday, May 31, 2017 16:43 - CONCLUSION: Uncomplicated ultrasound guided paracentesis. Minimal fluid aspirated. Jonathan Adame MD A/P Problem List: (1) Abdominal pain ICD Codes: R10.9 - Unspecified abdominal pain Status: Acute Plan: - comgmt with GI and General Surgery - 52 y/o WF with HTN, hyperlipidemia, borderline diabetes and CAD with hx of NSETMI s/p stent to RCA in 2010. - Pt presented to the ED with complaints of worsening abdominal pain and distension. She states that she has been having issues with abd pain for the last 2 months. For the last 2 weeks she has been having increased generalized abd pain and distension which has been significantly worse over the last 2 days. - CT Abd/pelvis revealed ascites appears complex and new from 03/23/17. - She was previously seen in the ED on 03/[address] abd/pelvis at that time noted an 18mm lesion in the right lobe of the liver, with features favoring hemangioma. She was sent for followup as an outpt with GI. She had an MRI Abdomen W/O Contrast (05/13/17) with benign hemangioma in the caudate lobe of the liver corresponding to the lesion identified on CT otherwise normal examination. - Outpt workup with GI in April 2017 revealed positive ASMA, positive RACHELE, and RODRIGUEZ FibroSURE with fibrosis score of 0.04 (No fibrosis), Steatosis score of 0.78/S3 (marked or severe steatosis). Viral Hepatitis was negative. IgG subclasses were WNL, LKM Ab negative, AMA negative, Iron studies WNL, Ferritin 160 (slightly elevated), Ceruloplasmin WNL. Labs on 05/12/17 with AST 54, ALT 81, AlkPhos 92, Tbili 0.8 , DBili 0.2. - Pt was ordered to have EGD/colonoscopy and liver biopsy but these have not been done yet. - Pt had diagnostic paracentesis on 05/31 with removal of 15cc of fluid - Cell count for the fluid noted WBC count 1657 - Fluid culture with no grown x 48 hours, gram stain with few WBCs - cytology --> atypical epithelioid cells suspicious for malignancy - Repeat paracentesis 06/04/17 - 3,600ml of ascites removed - Ascitic Cell count: WBC 494, RBC 6525 - Fluid culture shows NO growth at 24 hours, gram stain showed NO organisms & NO WBCs - cytology --> pending - Pt underwent Omental Biopsy (06/04/17) --> pathology pending - SAAG >1.1 indicates portal HTN - Case discussed extensively with Radiology, Dr. Adame; GI, Dr. Damon;, and Plant Assigner Oncology, Dr. Dodge. (06/03/17) - cytology from initial paracentesis (05/31/17) was abnormal showing atypical cells suspicious for malignancy. There was a small cluster of cells suggestive for adenocarcinoma but definitive diagnosis could NOT be given. 06/06/17 CT scan reviewed no acute change identified to explain the diffuse abdominal pain. persistent fluid within the abdomen and pelvis along with thickening of the omentum and mild enhancement/thickening of the peritoneal lining. The volume free fluid in the abdomen and pelvis has slightly increased compared to yesterday's CT performed following paracentesis. Small bilateral pleural effusions, left larger than right. The left pleural effusion has slightly increased in volume since yesterday CT. There is associated compressive atelectasis in the lung lower bases. Stable 2.1 cm right lobe liver lesion. Although incompletely characterized imaging features favoring a hemangioma -still awaiting results of paracentesis pathology and omental bx. Further decisions based on results -cont current medications. (2) Ascites ICD Codes: R18.8 - Other ascites Status: Acute Plan: - See above (3) Hypertension ICD Codes: I10 - Essential (primary) hypertension Status: Acute Plan: - Home meds resumed - Monitor (4) Hyperlipidemia ICD Codes: E78.5 - Hyperlipidemia, unspecified Status: Acute Plan: - Statin was held as an outpt (5) CAD (coronary artery disease) ICD Codes: I25.10 - Atherosclerotic heart disease of [place] coronary artery without angina pectoris Status: Acute Plan: - Pt with hx of CAD and NSTEMI in 2010 s/p stent in the RCA (6) Tobacco abuse ICD Codes: Z72.0 - Tobacco use Status: Acute Problem Qualifiers (1) Abdominal pain: Qualified Codes: R10.84 - Generalized abdominal pain (2) Ascites: Qualified Codes: R18.8 - Other ascites Zach Briceno MD Jun 07, 2017 12:00
[2017-06-07 13:50] LABS: SCL-70 AB <1.0 NEG AI (<1.0 NEGATIVE)
[2017-06-07] MEDS: HYDROmorphone HCL PF 1 MG/ML VIAL IV PUSH PRN ×2 (14:02→20:28)
[2017-06-07] MEDS: ONDANSETRON HCL 4 MG/2 ML VIAL IVP PRN ×3 (14:06→20:28)
[2017-06-07 16:47] VITALS: BP 132/83; PULSE 96; RESP 20; TEMP 98.5; O2SAT 94
[2017-06-07 20:00] VITALS: BP 158/88; PULSE 101; RESP 18; TEMP 98.4; O2SAT 93
[2017-06-07] MEDS: LISINOPRIL 5 MG TAB PO SCH (20:09)
[2017-06-07] MEDS: ASPIRIN EC 81 MG TABEC PO SCH (20:10)
[2017-06-07] MEDS: LEVOFLOXACIN 750 MG PREMIX INJ 150 ML IV SCH (20:10)
[2017-06-07] MEDS ORDERED: PROMETHAZINE HCL 25 MG TAB PO PRN (21:00)
[2017-06-08] VITALS: BP 125/83; PULSE 113; RESP 18; TEMP 98.1; O2SAT 91
[2017-06-08 04:00] VITALS: BP 135/81; PULSE 97; RESP 18; TEMP 98.2; O2SAT 95
[2017-06-08] MEDS: ALBUMIN 25% INJ 50 ML IV SCH (05:42)
[2017-06-08] MEDS ORDERED: PANTOPRAZOLE SODIUM 40 MG VIAL IV PUSH ONE (05:45)
[2017-06-08] MEDS: LACTULOSE SYRUP 20 GM/30 ML CUP PO PRN (05:45)
[2017-06-08 08:08] VITALS: BP 170/88; PULSE 104; RESP 18; TEMP 98.2; O2SAT 94
[2017-06-08] MEDS: METOPROLOL TARTRATE 100 MG TAB PO SCH ×2 (08:46→20:39)
[2017-06-08] MEDS: SPIRONOLACTONE 25 MG TAB PO SCH (08:46)
[2017-06-08] MEDS: DOCUSATE SODIUM 100 MG CAP PO SCH ×2 (08:46→20:39)
[2017-06-08] MEDS: POLYETHYLENE GLYCOL 17 GM PKG PO SCH (08:47)
[2017-06-08] MEDS: SODIUM CHLORIDE 0.9% FLUSH 10 ML FLUSH IV FLUSH SCH ×2 (08:47→20:45)
[2017-06-08] MEDS: PANTOPRAZOLE SOD 40 MG DELAYED RELEASE TAB PO SCH (08:47)
[2017-06-08] MEDS: SODIUM CHLOR 0.9% 1000 ML INJ 1,000 ML IV SCH (11:15)
[2017-06-08 12:08] VITALS: BP 147/87; PULSE 101; RESP 18; TEMP 98.2; O2SAT 95
[2017-06-08] MEDS ORDERED: METHYLNALTREXONE BROMIDE 12 MG/0.6 ML VIAL SQ ONE (12:30)
--- NOTE | 2017-06-08 13:00 | RADRPT ---
EXAM DATE/TIME: 06/08/2017 12:43 [facility] COMPARISON: ABDOMEN KUB ONLY, June 07, 2017, 5:50. INDICATIONS : Ileus. MEDICAL HISTORY : Diabetes mellitus type II. Hypertension coronary artery disease, cirrhosis SURGICAL HISTORY : section ENCOUNTER: Initial ACUITY: 1 week PAIN SCORE: 9/10 LOCATION: Bilateral abdomen FINDINGS: Supine view of the abdomen was performed. The abdominal bowel gas pattern is normal. No abnormal ma sses, calcifications, or organomegaly is seen. Residual contrast in the right colon. The osseous stru ctures are unremarkable. CONCLUSION: No obstruction. Ivan Lowe MD on June 08, 2017 at 12:56 Board Certified Radiologist. This report was verified electronically.
--- NOTE | 2017-06-08 13:07 | HHI.PR ---
Subjective Remarks mostly miserable. alot of acid reflux and vomiting. no flatus. not eating or drinking much Objective Vitals heart reg lung cta abd distended.minimal bs ext no edema Vital Signs Date Time Temp Pulse Resp B/P (MAP) Pulse Ox O2 Delivery O2 Flow Rate FiO2 06/08/17 12:08 98.2 101 18 147/87 (107) 95 06/08/17 11:16 18 06/08/17 08:08 98.2 104 18 170/88 (115) 94 06/08/17 04:00 98.2 97 18 135/81 (99) 95 06/08/17 00:00 98.1 113 18 125/83 (97) 91 06/07/17 20:00 98.4 101 18 158/88 (111) 93 06/07/17 16:47 98.5 96 20 132/83 (99) 94 06/07/17 14:32 20 06/08/17 06/08/17 06/09/17 15:00 23:00 07:00 Intake Total 316 ml Balance 316 ml Intake Oral 240 ml IV Total 76 ml # Voids 3 Result Diagram: 06/05/17 1620 06/05/17 1620 Imaging Last Impressions Abdomen Biopsy CT 06/04/17 0000 Signed Impressions: Service Date/Time: Sunday, June 04, 2017 14:57 - CONCLUSION: Uncomplicated CT guided biopsy of the omentum. Chilango Shaw MD Liver Ultrasound 06/02/17 0000 Signed Impressions: Service Date/Time: Friday, June 02, 2017 23:21 - CONCLUSION: 1. Cirrhosis 2. Possible mass right lobe of the liver. MRI is recommended for further evaluation if clinically indicated. 3. Moderate ascites Mert Paige MD Chest X-Ray 05/31/17 1557 Signed Impressions: Service Date/Time: Wednesday, May 31, 2017 16:05 - CONCLUSION: No acute disease. Ivan Lowe MD Abdomen/Pelvis CT 05/31/17 1403 Signed Impressions: Service Date/Time: Wednesday, May 31, 2017 14:41 - CONCLUSION: Ascites appears complex new from 03/23/17. Other than liver disease I don't see an etiology for such. If paracentesis is contemplated fluid should be sent for cytology. Tom Kellogg MD FACRADDENDUM: The above was reviewed. Of note, the patient is a stable 2 cm lesion in the medial aspect of the right hepatic lobe which shows rim enhancement, most characteristic of a benign hemangioma. Re\re aerating the above, there is stranding in the omentum which appears to be isolated. There is no associated anasarca or fluid in the mesenteric leaves. This appears to be a process isolated to the omentum itself. Although there are no discrete soft tissue lesions, findings could represent an interstitial or lymphatic type neoplastic process. Omental biopsy could be considered for further characterization. Jonathan Adame MD Cyst Biopsy Asp-Paracentesis US 05/31/17 0000 Signed Impressions: Service Date/Time: Wednesday, May 31, 2017 16:43 - CONCLUSION: Uncomplicated ultrasound guided paracentesis. Minimal fluid aspirated. Jonathan Adame MD A/P Problem List: (1) Abdominal pain ICD Codes: R10.9 - Unspecified abdominal pain Status: Acute Plan: - comgmt with GI and General Surgery - 52 y/o WF with HTN, hyperlipidemia, borderline diabetes and CAD with hx of NSETMI s/p stent to RCA in 2010. - Pt presented to the ED with complaints of worsening abdominal pain and distension. She states that she has been having issues with abd pain for the last 2 months. For the last 2 weeks she has been having increased generalized abd pain and distension which has been significantly worse over the last 2 days. - CT Abd/pelvis revealed ascites appears complex and new from 03/23/17. - She was previously seen in the ED on 03/[address] abd/pelvis at that time noted an 18mm lesion in the right lobe of the liver, with features favoring hemangioma. She was sent for followup as an outpt with GI. She had an MRI Abdomen W/O Contrast (05/13/17) with benign hemangioma in the caudate lobe of the liver corresponding to the lesion identified on CT otherwise normal examination. - Outpt workup with GI in April 2017 revealed positive ASMA, positive RACHELE, and RODRIGUEZ FibroSURE with fibrosis score of 0.04 (No fibrosis), Steatosis score of 0.78/S3 (marked or severe steatosis). Viral Hepatitis was negative. IgG subclasses were WNL, LKM Ab negative, AMA negative, Iron studies WNL, Ferritin 160 (slightly elevated), Ceruloplasmin WNL. Labs on 05/12/17 with AST 54, ALT 81, AlkPhos 92, Tbili 0.8 , DBili 0.2. - Pt was ordered to have EGD/colonoscopy and liver biopsy but these have not been done yet. - Pt had diagnostic paracentesis on 05/31 with removal of 15cc of fluid - Cell count for the fluid noted WBC count 1657 - Fluid culture with no grown x 48 hours, gram stain with few WBCs - cytology --> atypical epithelioid cells suspicious for malignancy - Repeat paracentesis 06/04/17 - 3,600ml of ascites removed - Ascitic Cell count: WBC 494, RBC 6525 - Fluid culture shows NO growth at 24 hours, gram stain showed NO organisms & NO WBCs - cytology --> pending - Pt underwent Omental Biopsy (06/04/17) --> pathology pending - SAAG >1.1 indicates portal HTN - Case discussed extensively with Radiology, Dr. Adame; GI, Dr. Damon;, and [facility], Dr. Dodge. (06/03/17) - cytology from initial paracentesis (05/31/17) was abnormal showing atypical cells suspicious for malignancy. There was a small cluster of cells suggestive for adenocarcinoma but definitive diagnosis could NOT be given. 06/06/17 CT scan reviewed no acute change identified to explain the diffuse abdominal pain. persistent fluid within the abdomen and pelvis along with thickening of the omentum and mild enhancement/thickening of the peritoneal lining. The volume free fluid in the abdomen and pelvis has slightly increased compared to yesterday's CT performed following paracentesis. Small bilateral pleural effusions, left larger than right. The left pleural effusion has slightly increased in volume since yesterday CT. There is associated compressive atelectasis in the lung lower bases. Stable 2.1 cm right lobe liver lesion. Although incompletely characterized imaging features favoring a hemangioma -still awaiting results of paracentesis pathology and omental bx. Further decisions based on results -discussed with dr Dodge...gynecological malignancy seems less likely. -abnormal autoimmune markers and ?autoimmune hepatitis -If cytology and omental bx negative then will discuss liver bx? with GI -gentle ivf. stop abx. kub to eval for ileus...relistor and reglan. iv ppi bid. diet as tolerated. might to to recheck for recurrent ascites with u/s (2) Ascites ICD Codes: R18.8 - Other ascites Status: Acute Plan: - See above (3) Hypertension ICD Codes: I10 - Essential (primary) hypertension Status: Acute Plan: - Home meds resumed - Monitor (4) Hyperlipidemia ICD Codes: E78.5 - Hyperlipidemia, unspecified Status: Acute Plan: - Statin was held as an outpt (5) CAD (coronary artery disease) ICD Codes: I25.10 - Atherosclerotic heart disease of [place] coronary artery without angina pectoris Status: Acute Plan: - Pt with hx of CAD and NSTEMI in 2010 s/p stent in the RCA (6) Tobacco abuse ICD Codes: Z72.0 - Tobacco use Status: Acute Problem Qualifiers (1) Abdominal pain: Qualified Codes: R10.84 - Generalized abdominal pain (2) Ascites: Qualified Codes: R18.8 - Other ascites Zach Briceno MD Jun 08, 2017 13:07
[2017-06-08] MEDS ORDERED: BISACODYL EC 5 MG TABEC PO ONE (13:15)
--- NOTE | 2017-06-08 13:33 | HHI.GIFU ---
Subjective Remarks Resting in bed. C/O bloating and significant reflux. States she cannot even drink water without having heartburn and reflux. She reports one bowel movement during this hospitalization and is having more abdominal discomfort with her constipation. (Suzi Hobbs) Objective Vitals I&O Vital Signs Date Time Temp Pulse Resp B/P (MAP) Pulse Ox O2 Delivery O2 Flow Rate FiO2 06/08/17 12:08 98.2 101 18 147/87 (107) 95 06/08/17 11:16 18 06/08/17 08:08 98.2 104 18 170/88 (115) 94 06/08/17 04:00 98.2 97 18 135/81 (99) 95 06/08/17 00:00 98.1 113 18 125/83 (97) 91 06/07/17 20:00 98.4 101 18 158/88 (111) 93 06/07/17 16:47 98.5 96 20 132/83 (99) 94 06/07/17 14:32 20 I/O 06/07/17 06/07/17 06/07/17 06/08/17 06/08/17 06/08/17 07:00 15:00 23:00 07:00 15:00 23:00 Intake Total 1060 ml 150 ml 119 ml 316 ml Balance 1060 ml 150 ml 119 ml 316 ml Intake Oral 119 ml 240 ml IV Total 1060 ml 150 ml 76 ml # Voids 2 4 3 Laboratory Date/Time Source Procedure Growth Status 06/01/17 01:35 Blood Peripheral Aerobic Blood Culture - Final NO GROWTH IN 5 DAYS Complete 06/01/17 01:35 Blood Peripheral Anaerobic Blood Culture - Final NO GROWTH IN 5 DAYS Complete 06/04/17 15:22 Fluid Peritoneal Fluid Gram Stain - Final Complete 06/04/17 15:22 Fluid Peritoneal Fluid Body Fluid Culture - Final NO GROWTH IN 72 HRS.--AEROBICALLY OR ... Complete Imaging Last Impressions Abdomen X-Ray 06/08/17 0000 Signed Impressions: Service Date/Time: Thursday, June 08, 2017 12:43 - CONCLUSION: No obstruction. Ivan Lowe MD Abdomen/Pelvis CT 06/05/17 0000 Signed Impressions: Service Date/Time: Monday, June 05, 2017 20:16 - CONCLUSION: 1. No acute change is identified to explain the diffuse abdominal pain. However, there is persistent fluid within the abdomen and pelvis along with thickening of the omentum and mild enhancement/thickening of the peritoneal lining. The volume of free fluid in the abdomen and pelvis has slightly increased compared to yesterday's CT performed following paracentesis. 2. Small bilateral pleural effusions, left larger than right. The left pleural effusion has slightly increased in volume since yesterday's CT. There is associated compressive atelectasis in the lower lobes. 3. Stable 2.1 cm right lobe liver lesion. Although incompletely characterized imaging features favor a hemangioma. Chilango Shaw MD Paracentesis 06/04/17 0000 Signed Impressions: Service Date/Time: Sunday, June 04, 2017 14:57 - CONCLUSION: Uncomplicated CT Guided paracentesis with removal of 3.6 L of fluid. Sample was saved and sent to the lab for evaluation. Chilango Shaw MD Abdomen Biopsy CT 06/04/17 0000 Signed Impressions: Service Date/Time: Sunday, June 04, 2017 14:57 - CONCLUSION: Uncomplicated CT guided biopsy of the omentum. Chilango Shaw MD Liver Ultrasound 06/02/17 0000 Signed Impressions: Service Date/Time: Friday, June 02, 2017 23:21 - CONCLUSION: 1. Cirrhosis 2. Possible mass right lobe of the liver. MRI is recommended for further evaluation if clinically indicated. 3. Moderate ascites Mert Paige MD Chest X-Ray 05/31/17 1557 Signed Impressions: Service Date/Time: Wednesday, May 31, 2017 16:05 - CONCLUSION: No acute disease. Ivan Lowe MD Cyst Biopsy Asp-Paracentesis US 05/31/17 0000 Signed Impressions: Service Date/Time: Wednesday, May 31, 2017 16:43 - CONCLUSION: Uncomplicated ultrasound guided paracentesis. Minimal fluid aspirated. Jonathan Adame MD Physical Exam HEENT: Normocephalic; atraumatic; no jaundice. CHEST: CTA CARDIAC: RRR ABDOMEN: Semi firm, distended, diffuse tenderness; bowel sounds are present in all four quadrants. EXTREMITIES: Trace BLE edema SKIN: Normal; no rash; no jaundice. FACILITIES SUPERVISOR: No focal deficits; alert and oriented times three. (Suzi Hobbs) Assessment and Plan Plan ASSESSMENT - New onset ascites, spontaneous bacterial peritonitis. S/P US Paracentesis ()---> 15cc. Peritoneal 1657, RBC 349. Fluid cultures no growth in 48 hours. SAAG> 1.1, indicating portal hypertension as the etiology for her ascites. Cytology atypical epithelioid cells are present, suspicious for malignancy. SAAG suggests portal htn, but recently had fibrosis score of 0.04 on RODRIGUEZ fibrosure. Liver US (06/02/17)--> Cirrhosis, possible mass right lobe of the liver. MRI is recommended for further evaluation if clinically indicated, moderate ascites. Tumor Markers - Ca 125 172.6, Ca 19-9 17.5, Ca15-3 24.2, CEA 0.8, AFP 1.2. Suspect malignant ascites. S/P Repeat CT guided Paracentesis (06/04), cx no growth 72 hours. Spironolactone. Levaquin. - Abdominal pain, nausea, vomiting. CT scan abdomen and pelvis (05/31/17)---> Ascites appears complex new from 03/23/17. Other than liver disease I don't see an etiology for such. If paracentesis is contemplated fluid should be sent for cytology. ADDENDUM: The above was reviewed. Of note, the patient is a stable 2 cm lesion in the medial aspect of the right hepatic lobe which shows rim enhancement, most characteristic of a benign hemangioma. Re\re aerating the above, there is stranding in the omentum which appears to be isolated. There is no associated anasarca or fluid in the mesenteric leaves. This appears to be a process isolated to the omentum itself. Although there are no discrete soft tissue lesions, findings could represent an interstitial or lymphatic type neoplastic process. Omental biopsy could be considered for further characterization. S/P CT guided biopsy of the omentum (06/04/17), pathology pending. - Severe GERD. PPI. Add Carafate - Constipation. Relistor has been ordered for today. Will add miralax. - Liver mass, liver US as above, with elevated Ca 125 at 172.6, cytology from paracentesis suspicious for malignancy. ? malignant ascites r/t metastatic disease, ? ovarian. Dr. Dodge following. - Portal hypertension. CT with small liver, SAAG > 1.1, indicating portal hypertension, mild coagulopathy, and hypoalbuminemia. S/P Outpatient workup April of 2017- ASMA (+), RACHELE (+), RODRIGUEZ Fibrosure with fibrosis score of 0.04, steatosis score of 0.78/S3 (marked or severe steatosis). Viral hepatitis was negative. IgG subclasses unremarkable. AMA negative. Iron studies unremarkable, Ceruloplasmin unremarkable. Pt with portal htn, although fibrosis score of 0.04 in Apr. - (+) RACHELE. Titer 1:640. Actin IgG ab 36 H. Will likely need liver biopsy after above addressed. - Leukocytosis. WBC 14.9. BCx no growth 4 day. Peritoneal fluid no growth 72 hours. PLAN - EZE - Await omental biopsy results - Await repeat cytology results - Relistor 12mg sq x 1 today per attending - PPI - Add Carafate - Add Miralax - Oncology following - GS following - 2 gram sodium diet - Cont. Spironolactone - Monitor labs - Supportive care - Further recommendations to follow based on results of above - Patient seen and examined by Dr. Davison and myself and this note is written on his behalf. (Suzi Hobbs) Physician Comments Patient seen and examined Agree with above Continue with current supportive care Monitor labs Await pathology (Jefry Davison MD) Suzi Hobbs Jun 08, 2017 13:33 Jefry Davison MD Jun 08, 2017 22:36
[2017-06-08] MEDS: SIMETHICONE 125 MG CHEWABLE TAB PO SCH ×2 (13:49→23:40)
[2017-06-08] MEDS: METOCLOPRAMIDE HCL 10 MG/2 ML VIAL IV PUSH SCH ×2 (13:55→23:40)
[2017-06-08 16:36] VITALS: BP 147/78; PULSE 112; RESP 18; TEMP 98.2; O2SAT 95
[2017-06-08] MEDS: SUCRALFATE 1 GM/10 ML CUP PO SCH ×2 (17:18→22:29)
[2017-06-08 20:00] VITALS: BP 158/82; PULSE 112; RESP 18; TEMP 98.6; O2SAT 93
[2017-06-08] MEDS: PANTOPRAZOLE SODIUM 40 MG VIAL IV PUSH SCH (20:39)
[2017-06-08] MEDS: ASPIRIN EC 81 MG TABEC PO SCH (20:39)
[2017-06-08] MEDS: LISINOPRIL 5 MG TAB PO SCH (20:40)
[2017-06-08 21:02] LABS: BICARBONATE 28.7 MEQ/L (21.0-32.0); MAGNESIUM 1.8 MG/DL (1.5-2.5); POTASSIUM 3.4 MEQ/L (3.5-5.1)
[2017-06-09] VITALS: BP 151/88; PULSE 109; RESP 18; TEMP 97.8; O2SAT 95
[2017-06-09] MEDS: SODIUM CHLOR 0.9% 1000 ML INJ 1,000 ML IV SCH (01:33)
[2017-06-09 04:00] VITALS: BP 159/97; PULSE 122; RESP 20; TEMP 98; O2SAT 92
[2017-06-09] MEDS: LACTULOSE SYRUP 20 GM/30 ML CUP PO PRN (05:06)
[2017-06-09] MEDS: SIMETHICONE 125 MG CHEWABLE TAB PO SCH ×3 (05:06→21:23)
[2017-06-09] MEDS: METOCLOPRAMIDE HCL 10 MG/2 ML VIAL IV PUSH SCH ×2 (05:06→21:27)
[2017-06-09] MEDS: HYDROmorphone HCL PF 1 MG/ML VIAL IV PUSH PRN ×4 (07:50→21:16)
[2017-06-09 08:12] VITALS: BP 164/96; PULSE 111; RESP 18; TEMP 98.7; O2SAT 94
[2017-06-09] MEDS: SUCRALFATE 1 GM/10 ML CUP PO SCH ×4 (08:33→21:14)
[2017-06-09] MEDS: PANTOPRAZOLE SODIUM 40 MG VIAL IV PUSH SCH ×2 (08:34→21:30)
[2017-06-09] MEDS: DOCUSATE SODIUM 100 MG CAP PO SCH ×2 (08:35→21:24)
[2017-06-09] MEDS: SPIRONOLACTONE 25 MG TAB PO SCH (08:35)
[2017-06-09] MEDS: METOPROLOL TARTRATE 100 MG TAB PO SCH ×2 (08:35→21:23)
[2017-06-09] MEDS: BISACODYL EC 5 MG TABEC PO SCH (08:35)
[2017-06-09] MEDS: POLYETHYLENE GLYCOL 17 GM PKG PO SCH (08:36)
[2017-06-09] MEDS: SODIUM CHLORIDE 0.9% FLUSH 10 ML FLUSH IV FLUSH SCH ×2 (08:38→21:00)
--- NOTE | 2017-06-09 11:13 | HHI.PR ---
Subjective Remarks miserable. abdomen distended no flatus or bm Objective Vitals crying.oriented no labored breathing heart rg lung cta abd distended. no bs. ext no edema Vital Signs Date Time Temp Pulse Resp B/P (MAP) Pulse Ox O2 Delivery O2 Flow Rate FiO2 06/09/17 08:33 18 06/09/17 08:12 98.7 111 18 164/96 (118) 94 06/09/17 04:00 98.0 122 20 159/97 (117) 92 06/09/17 00:00 97.8 109 18 151/88 (109) 95 06/08/17 20:00 98.6 112 18 158/82 (107) 93 06/08/17 17:28 18 06/08/17 16:36 98.2 112 18 147/78 (101) 95 06/08/17 12:08 98.2 101 18 147/87 (107) 95 06/09/17 06/09/17 06/10/17 15:00 23:00 07:00 # Voids 3 Result Diagram: 06/05/17 1620 06/08/17 1922 Imaging Last Impressions Abdomen Biopsy CT 06/04/17 0000 Signed Impressions: Service Date/Time: Sunday, June 04, 2017 14:57 - CONCLUSION: Uncomplicated CT guided biopsy of the omentum. Chilango Shaw MD Liver Ultrasound 06/02/17 0000 Signed Impressions: Service Date/Time: Friday, June 02, 2017 23:21 - CONCLUSION: 1. Cirrhosis 2. Possible mass right lobe of the liver. MRI is recommended for further evaluation if clinically indicated. 3. Moderate ascites Mert Paige MD Chest X-Ray 05/31/17 1557 Signed Impressions: Service Date/Time: Wednesday, May 31, 2017 16:05 - CONCLUSION: No acute disease. Ivan Lowe MD Abdomen/Pelvis CT 05/31/17 1403 Signed Impressions: Service Date/Time: Wednesday, May 31, 2017 14:41 - CONCLUSION: Ascites appears complex new from 03/23/17. Other than liver disease I don't see an etiology for such. If paracentesis is contemplated fluid should be sent for cytology. Tom Kellogg MD FACRADDENDU: The above was reviewed. Of note, the patient is a stable 2 cm lesion in the medial aspect of the right hepatic lobe which shows rim enhancement, most characteristic of a benign hemangioma. Re\re aerating the above, there is stranding in the omentum which appears to be isolated. There is no associated anasarca or fluid in the mesenteric leaves. This appears to be a process isolated to the omentum itself. Although there are no discrete soft tissue lesions, findings could represent an interstitial or lymphatic type neoplastic process. Omental biopsy could be considered for further characterization. Jonathan Adame MD Cyst Biopsy Asp-Paracentesis US 05/31/17 0000 Signed Impressions: Service Date/Time: Wednesday, May 31, 2017 16:43 - CONCLUSION: Uncomplicated ultrasound guided paracentesis. Minimal fluid aspirated. Jonathan Adame MD A/P Problem List: (1) Abdominal pain ICD Codes: R10.9 - Unspecified abdominal pain Status: Acute Plan: - comgmt with GI and General Surgery - 52 y/o WF with HTN, hyperlipidemia, borderline diabetes and CAD with hx of NSETMI s/p stent to RCA in 2010. - Pt presented to the ED with complaints of worsening abdominal pain and distension. She states that she has been having issues with abd pain for the last 2 months. For the last 2 weeks she has been having increased generalized abd pain and distension which has been significantly worse over the last 2 days. - CT Abd/pelvis revealed ascites appears complex and new from 03/23/17. - She was previously seen in the ED on 03/[address] abd/pelvis at that time noted an 18mm lesion in the right lobe of the liver, with features favoring hemangioma. She was sent for followup as an outpt with GI. She had an MRI Abdomen W/O Contrast (05/13/17) with benign hemangioma in the caudate lobe of the liver corresponding to the lesion identified on CT otherwise normal examination. - Outpt workup with GI in April 2017 revealed positive ASMA, positive RACHELE, and RODRIGUEZ FibroSURE with fibrosis score of 0.04 (No fibrosis), Steatosis score of 0.78/S3 (marked or severe steatosis). Viral Hepatitis was negative. IgG subclasses were WNL, LKM Ab negative, AMA negative, Iron studies WNL, Ferritin 160 (slightly elevated), Ceruloplasmin WNL. Labs on 05/12/17 with AST 54, ALT 81, AlkPhos 92, Tbili 0.8 , DBili 0.2. - Pt was ordered to have EGD/colonoscopy and liver biopsy but these have not been done yet. - Pt had diagnostic paracentesis on 05/31 with removal of 15cc of fluid - Cell count for the fluid noted WBC count 1657 - Fluid culture with no grown x 48 hours, gram stain with few WBCs - cytology --> atypical epithelioid cells suspicious for malignancy - Repeat paracentesis 06/04/17 - 3,600ml of ascites removed - Ascitic Cell count: WBC 494, RBC 6525 - Fluid culture shows NO growth at 24 hours, gram stain showed NO organisms & NO WBCs - cytology --> pending - Pt underwent Omental Biopsy (06/04/17) --> pathology pending - SAAG >1.1 indicates portal HTN - Case discussed extensively with Radiology, Dr. Adame; GI, Dr. Damon;, and [facility], Dr. Dodge. (06/03/17) - cytology from initial paracentesis (05/31/17) was abnormal showing atypical cells suspicious for malignancy. There was a small cluster of cells suggestive for adenocarcinoma but definitive diagnosis could NOT be given. 06/06/17 CT scan reviewed no acute change identified to explain the diffuse abdominal pain. persistent fluid within the abdomen and pelvis along with thickening of the omentum and mild enhancement/thickening of the peritoneal lining. The volume free fluid in the abdomen and pelvis has slightly increased compared to yesterday's CT performed following paracentesis. Small bilateral pleural effusions, left larger than right. The left pleural effusion has slightly increased in volume since yesterday CT. There is associated compressive atelectasis in the lung lower bases. Stable 2.1 cm right lobe liver lesion. Although incompletely characterized imaging features favoring a hemangioma -still awaiting results of paracentesis pathology and omental bx. Further decisions based on results. cytology again suspicious for malignancy -discussed with dr Dodge...gynecological malignancy seems less likely. -abnormal autoimmune markers and ?autoimmune hepatitis -If omental bx negative then will discuss liver bx? with GI -gentle ivf. \ - Pt abdomen continues to get more distended and she is having no bm or flatus. tried reglan and relister with no effect. will get stat CT a/p. might need ngt. will discuss with gen surg after ct complete if needed. repeat paracentesis as needed. (2) Ascites ICD Codes: R18.8 - Other ascites Status: Acute Plan: - See above (3) Hypertension ICD Codes: I10 - Essential (primary) hypertension Status: Acute Plan: - Home meds resumed - Monitor (4) Hyperlipidemia ICD Codes: E78.5 - Hyperlipidemia, unspecified Status: Acute Plan: - Statin was held as an outpt (5) CAD (coronary artery disease) ICD Codes: I25.10 - Atherosclerotic heart disease of [place] coronary artery without angina pectoris Status: Acute Plan: - Pt with hx of CAD and NSTEMI in 2010 s/p stent in the RCA (6) Tobacco abuse ICD Codes: Z72.0 - Tobacco use Status: Acute Problem Qualifiers (1) Abdominal pain: Qualified Codes: R10.84 - Generalized abdominal pain (2) Ascites: Qualified Codes: R18.8 - Other ascites Zach Briceno MD Jun 09, 2017 11:13
[2017-06-09] MEDS: NS + KCL 20 MEQ INJ 1,000 ML IV SCH (11:30)
[2017-06-09 12:09] VITALS: BP 142/97; PULSE 101; RESP 18; TEMP 98.1; O2SAT 95
--- NOTE | 2017-06-09 13:21 | RADRPT ---
EXAM DATE/TIME: 06/09/2017 12:50 [facility] COMPARISON: CT NEEDLE BIOPSY ABDOMEN, June 04, 2017, 14:57. CT ABDOMEN & PELVIS W CONTRAST, June 05 7, 20:16. INDICATIONS : Abdominal pain, possible obstruction. ORAL CONTRAST: No oral contrast ingested. RADIATION DOSE: 15.79 CTDIvol (mGy) MEDICAL HISTORY : Cardiovascular disease. Hypertension. Diabetes mellitus type 2. SURGICAL HISTORY : section. ENCOUNTER: Initial ACUITY: 1 day PAIN SCALE: 10/10 LOCATION: abdomen TECHNIQUE: Volumetric scanning of the abdomen and pelvis was performed. Using automated exposure control and ad justment of the mA and/or kV according to patient size, radiation dose was kept as low as reasonably achievable to obtain optimal diagnostic quality images. DICOM format image data is available electro nically for review and comparison. FINDINGS: There are small bilateral effusions and atelectatic changes in the lung bases. There is ascites throughout the upper abdomen. The liver is small in size.. The spleen appears mildly enlarged. There are diffuse edematous changes throughout the omentum. Differential consideration wou ld include peritoneal carcinomatosis versus cirrhosis. The pancreas, adrenal glands and kidneys are intact. There are no findings to indicate bowel obstruction. There is ascites within the pelvis. No iliac or inguinal adenopathy is seen. There degenerative changes throughout the spine. CONCLUSION: 1. Diffuse abdominal ascites. With omental thickening. Ascites could either be from cirrhotic changes or peritoneal carcinomatosis. 2. No findings to indicate bowel obstruction. 3. Small bilateral effusions with dependent atelectasis. Xavier Kellogg MD on June 09, 2017 at 13:15 Board Certified Radiologist. This report was verified electronically.
[2017-06-09] MEDS ORDERED: METOCLOPRAMIDE HCL 10 MG/2 ML VIAL IV PUSH ONE (14:15)
[2017-06-09 14:22] LABS: AUTOMATED NEUTROPHIL # 12.5 TH/MM3 (1.8-7.7); BASOPHIL % 0.2 % (0.0-2.0); EOSINOPHIL # 0.1 TH/MM3 (0-0.4); EOSINOPHIL % 0.3 % (0.0-4.0); HEMATOCRIT 35.4 % (35.0-46.0); LYMPH % 11.5 % (9.0-44.0); LYMPHOCYTE # 1.9 TH/MM3 (1.0-4.8); MEAN CELL VOLUME 89.8 FL (80.0-100.0); MEAN CORPUSCULAR HGB CONC 33.4 % (32.0-36.0); PLATELET COUNT 390 TH/MM3 (150-450); RED BLOOD COUNT 3.95 MIL/MM3 (4.00-5.30); RED CELL DISTRIBUTION WIDTH 13.9 % (11.6-17.2); WHITE BLOOD COUNT 16.9 TH/MM3 (4.0-11.0)
[2017-06-09 14:24] LABS: HEMO FLAGS AUTO DIFF
[2017-06-09 14:36] LABS: BICARBONATE 26.3 MEQ/L (21.0-32.0); POTASSIUM 3.2 MEQ/L (3.5-5.1)
[2017-06-09 15:24] LABS: BANDS 6 % (0-6); BASOPHILS 1 % (0-2); EOSINOPHILS 1 % (0-4); MYELOCYTES 2 % (0-0); NEUTROPHIL # MANUAL DIFF 13.9 TH/MM3 (1.8-7.7); POLYS (SEG NEUTROPHILS) 74 % (16-70); WBC DIFF SAMPLE 100
[2017-06-09 15:26] LABS: PLATELET ESTIMATE SMEAR NORMAL (NORMAL); PLATELET MORPHOLOGY NORMAL (NORMAL); SCAN/DIFF FINAL DIFF MANUAL
[2017-06-09 15:51] VITALS: BP 148/92; PULSE 110; RESP 18; TEMP 98.4; O2SAT 94
--- NOTE | 2017-06-09 16:16 | HHI.GIFU ---
Subjective Remarks Nausea without vomiting, complains of worsening abdominal distention. No BM. States she is not passing any flatus. Nurse in to place NGT. (Suzi Hobbs) Objective Vitals I&O Vital Signs Date Time Temp Pulse Resp B/P (MAP) Pulse Ox O2 Delivery O2 Flow Rate FiO2 06/09/17 15:51 98.4 110 18 148/92 (110) 94 06/09/17 14:33 18 06/09/17 12:09 98.1 101 18 142/97 (112) 95 06/09/17 11:35 20 06/09/17 08:33 18 06/09/17 08:12 98.7 111 18 164/96 (118) 94 06/09/17 04:00 98.0 122 20 159/97 (117) 92 06/09/17 00:00 97.8 109 18 151/88 (109) 95 06/08/17 20:00 98.6 112 18 158/82 (107) 93 06/08/17 16:36 98.2 112 18 147/78 (101) 95 I/O 06/08/17 06/08/17 06/08/17 06/09/17 06/09/17 06/09/17 07:00 15:00 23:00 07:00 15:00 23:00 Intake Total 119 ml 316 ml 289 ml 840 ml 534 ml Output Total 200 ml Balance 119 ml 316 ml 89 ml 840 ml 534 ml Intake Oral 119 ml 240 ml 220 ml IV Total 76 ml 289 ml 840 ml 314 ml Output Urine Total 200 ml # Voids 3 6 Laboratory Laboratory Tests Test 06/08/17 19:22 06/09/17 14:05 Blood Urea Nitrogen 5 4 Creatinine 0.47 0.37 Random Glucose 87 112 Calcium Level 8.9 8.4 Phosphorus Level 2.8 Magnesium Level 1.8 Sodium Level 134 136 Potassium Level 3.4 3.2 Chloride Level 95 99 Carbon Dioxide Level 28.7 26.3 Anion Gap 10 11 Estimat Glomerular Filtration Rate 139 183 White Blood Count 16.9 Red Blood Count 3.95 Hemoglobin 11.8 Hematocrit 35.4 Mean Corpuscular Volume 89.8 Mean Corpuscular Hemoglobin 30.0 Mean Corpuscular Hemoglobin Concent 33.4 Red Cell Distribution Width 13.9 Platelet Count 390 Mean Platelet Volume 6.6 Neutrophils (%) (Auto) 74.0 Lymphocytes (%) (Auto) 11.5 Monocytes (%) (Auto) 14.0 Eosinophils (%) (Auto) 0.3 Basophils (%) (Auto) 0.2 Neutrophils # (Auto) 12.5 Lymphocytes # (Auto) 1.9 Monocytes # (Auto) 2.4 Eosinophils # (Auto) 0.1 Basophils # (Auto) 0.0 CBC Comment AUTO DIFF Differential Total Cells Counted 100 Neutrophils % (Manual) 74 Band Neutrophils % 6 Lymphocytes % 6 Monocytes % 10 Eosinophils % 1 Basophils % 1 Neutrophils # (Manual) 13.9 Myelocytes 2 Differential Comment FINAL DIFF MANUAL Platelet Estimate NORMAL Platelet Morphology Comment NORMAL Date/Time Source Procedure Growth Status 06/01/17 01:35 Blood Peripheral Aerobic Blood Culture - Final NO GROWTH IN 5 DAYS Complete 06/01/17 01:35 Blood Peripheral Anaerobic Blood Culture - Final NO GROWTH IN 5 DAYS Complete 06/04/17 15:22 Fluid Peritoneal Fluid Gram Stain - Final Complete 06/04/17 15:22 Fluid Peritoneal Fluid Body Fluid Culture - Final NO GROWTH IN 72 HRS.--AEROBICALLY OR ... Complete Imaging Last Impressions Abdomen/Pelvis CT 06/09/17 0000 Signed Impressions: Service Date/Time: Friday, June 09, 2017 12:50 - CONCLUSION: 1. Diffuse abdominal ascites. With omental thickening. Ascites could either be from cirrhotic changes or peritoneal carcinomatosis. 2. No findings to indicate bowel obstruction. 3. Small bilateral effusions with dependent atelectasis. Xavier Kellogg MD Abdomen X-Ray 06/08/17 0000 Signed Impressions: Service Date/Time: Thursday, June 08, 2017 12:43 - CONCLUSION: No obstruction. Ivan Lowe MD Paracentesis 06/04/17 0000 Signed Impressions: Service Date/Time: Sunday, June 04, 2017 14:57 - CONCLUSION: Uncomplicated CT Guided paracentesis with removal of 3.6 L of fluid. Sample was saved and sent to the lab for evaluation. Chilango Shaw MD Abdomen Biopsy CT 06/04/17 0000 Signed Impressions: Service Date/Time: Sunday, June 04, 2017 14:57 - CONCLUSION: Uncomplicated CT guided biopsy of the omentum. Chilango Shaw MD Liver Ultrasound 06/02/17 0000 Signed Impressions: Service Date/Time: Friday, June 02, 2017 23:21 - CONCLUSION: 1. Cirrhosis 2. Possible mass right lobe of the liver. MRI is recommended for further evaluation if clinically indicated. 3. Moderate ascites Mert Paige MD Chest X-Ray 05/31/17 1557 Signed Impressions: Service Date/Time: Wednesday, May 31, 2017 16:05 - CONCLUSION: No acute disease. Ivan Lowe MD Cyst Biopsy Asp-Paracentesis US 05/31/17 0000 Signed Impressions: Service Date/Time: Wednesday, May 31, 2017 16:43 - CONCLUSION: Uncomplicated ultrasound guided paracentesis. Minimal fluid aspirated. Jonathan Adame MD Physical Exam HEENT: Normocephalic; atraumatic; no jaundice. CHEST: CTA CARDIAC: RRR ABDOMEN: Firm, distended, diffuse tenderness; bowel sounds intermittent EXTREMITIES: Trace BLE edema SKIN: Normal; no rash; no jaundice. LIVE SOURCE OPERATOR: No focal deficits; alert and oriented times three. (Suzi Hobbs) Assessment and Plan Plan ASSESSMENT - New onset ascites, spontaneous bacterial peritonitis. S/P US Paracentesis ()---> 15cc. Peritoneal 1657, RBC 349. Fluid cultures no growth in 48 hours. SAAG> 1.1, indicating portal hypertension as the etiology for her ascites. Cytology atypical epithelioid cells are present, suspicious for malignancy. SAAG suggests portal htn, but recently had fibrosis score of 0.04 on RODRIGUEZ fibrosure. Liver US (06/02/17)--> Cirrhosis, possible mass right lobe of the liver. MRI is recommended for further evaluation if clinically indicated, moderate ascites. Tumor Markers - Ca 125 172.6, Ca 19-9 17.5, Ca15-3 24.2, CEA 0.8, AFP 1.2. Suspect malignant ascites. S/P Repeat CT guided Paracentesis (06/04), cx no growth 72 hours. S/P Omental biopsy, pathology pending. Spironolactone. Levaquin. - Abdominal pain, nausea, distention, constipation. CT scan abdomen and pelvis ( 05/31/17)---> Ascites appears complex new from 03/23/17. Other than liver disease I don't see an etiology for such. If paracentesis is contemplated fluid should be sent for cytology. ADDENDUM: The above was reviewed. Of note, the patient is a stable 2 cm lesion in the medial aspect of the right hepatic lobe which shows rim enhancement, most characteristic of a benign hemangioma. Re\re aerating the above, there is stranding in the omentum which appears to be isolated. There is no associated anasarca or fluid in the mesenteric leaves. This appears to be a process isolated to the omentum itself. Although there are no discrete soft tissue lesions, findings could represent an interstitial or lymphatic type neoplastic process. Omental biopsy could be considered for further characterization. S/P CT guided biopsy of the omentum (06/04/17), pathology pending. S/P Relistor 06/08, no results. CT abdomen and pelvis without iv contrast (06/09/17)---> Diffuse abdominal ascites. With omental thickening. Ascites could either be from cirrhotic changes or peritoneal carcinomatosis, no findings to indicate bowel obstruction, small bilateral effusions with dependent atelectasis. NGT being placed to LIWS. Plan is for EGD tomorrow. If negative, then will consider SBFT to evaluate motility. - Severe GERD. PPI. Carafate - Liver mass, liver US as above, with elevated Ca 125 at 172.6, cytology from paracentesis suspicious for malignancy. ? malignant ascites r/t metastatic disease. Will plan for liver biopsy after paracentesis and EGD tomorrow. - Portal hypertension. CT with small liver, SAAG > 1.1, indicating portal hypertension, mild coagulopathy, and hypoalbuminemia. S/P Outpatient workup April of 2017- ASMA (+), RACHELE (+), RODRIGUEZ Fibrosure with fibrosis score of 0.04, steatosis score of 0.78/S3 (marked or severe steatosis). Viral hepatitis was negative. IgG subclasses unremarkable. AMA negative. Iron studies unremarkable, Ceruloplasmin unremarkable. Pt with portal htn, although fibrosis score of 0.04 in Apr. - (+) RACHELE. Titer 1:640. Actin IgG ab 36 H. Liver biopsy after EGD/ Paracentesis tomorrow - Leukocytosis. WBC 14.9. BCx no growth 4 day. Peritoneal fluid no growth 72 hours. PLAN - Plan for egd in am - Obtain consents - NPO except meds - Order for NGT to liws - PPI/Carafate - Spironolactone - CBC, CMP, PT/PTT in am - Supportive care - Will likely plan for paracentesis and liver biopsy after EGD tomorrow - If EGD negative, will consider SBFT with gastrografin - Further recommendations to follow based on results of above - Patient seen and examined by Dr. Davison and myself and this note is written on his behalf. (Suzi Hobbs) Physician Comments Patient seen and examined Agree with above Continue with current supportive care Monitor labs EGD tomorrow (Jefry Davison MD) Suzi Hobbs Jun 09, 2017 16:16 Jefry Davison MD Jun 09, 2017 21:58
[2017-06-09] MEDS: LISINOPRIL 5 MG TAB PO SCH (21:23)
[2017-06-09] MEDS: ASPIRIN EC 81 MG TABEC PO SCH (21:24)
[2017-06-09 21:45] VITALS: BP 140/100; PULSE 113; RESP 16; TEMP 98.4; O2SAT 93
[2017-06-10] MEDS: HYDROmorphone HCL PF 1 MG/ML VIAL IV PUSH PRN ×7 (00:01→21:46)
[2017-06-10 01:08] VITALS: BP 154/94; PULSE 111; RESP 18; TEMP 98.3; O2SAT 91
[2017-06-10] MEDS: NS + KCL 20 MEQ INJ 1,000 ML IV SCH ×2 (03:30→18:17)
[2017-06-10 04:00] VITALS: BP 142/92; PULSE 105; RESP 16; TEMP 97.8; O2SAT 93
[2017-06-10] MEDS: SIMETHICONE 125 MG CHEWABLE TAB PO SCH ×3 (06:00→21:03)
[2017-06-10] MEDS: SUCRALFATE 1 GM/10 ML CUP PO SCH ×4 (06:27→21:02)
[2017-06-10] MEDS: METOCLOPRAMIDE HCL 10 MG/2 ML VIAL IV PUSH SCH ×2 (06:27→14:00)
[2017-06-10] MEDS ORDERED: LACTATED RINGER'S 1000 ML IV PRN (07:45)
[2017-06-10] MEDS ORDERED: POVIDONE IODINE 5% (ANTISEPSIS KIT) 4 APPLICATIONS EACH NARE PRN (07:45)
[2017-06-10] MEDS ORDERED: SODIUM CHLORID 0.9% 500 ML IV PRN (07:45)
[2017-06-10] MEDS ORDERED: CHLORHEXIDINE GLUCONATE 2 % 1 PACK (2 CLOTHS) TOPICAL PRN (07:45)
[2017-06-10] MEDS ORDERED: METOPROLOL TARTRATE 25 MG TAB PO PRN (07:45)
[2017-06-10 08:20] LABS: AUTOMATED NEUTROPHIL # 14.3 TH/MM3 (1.8-7.7); BASOPHIL % 0.2 % (0.0-2.0); EOSINOPHIL # 0.1 TH/MM3 (0-0.4); EOSINOPHIL % 0.5 % (0.0-4.0); HEMATOCRIT 35.5 % (35.0-46.0); LYMPH % 9.5 % (9.0-44.0); LYMPHOCYTE # 1.8 TH/MM3 (1.0-4.8); MEAN CELL VOLUME 90.2 FL (80.0-100.0); MEAN CORPUSCULAR HEMOGLOBIN 30.7 PG (27.0-34.0); MEAN CORPUSCULAR HGB CONC 34.1 % (32.0-36.0); MONO % 13.6 % (0.0-8.0); NEUT % 76.2 % (16.0-70.0); PLATELET COUNT 406 TH/MM3 (150-450); RED BLOOD COUNT 3.94 MIL/MM3 (4.00-5.30); RED CELL DISTRIBUTION WIDTH 14.3 % (11.6-17.2); WHITE BLOOD COUNT 18.8 TH/MM3 (4.0-11.0)
[2017-06-10 08:23] LABS: HEMO FLAGS AUTO DIFF
[2017-06-10 08:26] LABS: APTT (PATIENT) 30.2 SEC (24.3-30.1); PROTHROMBIN TIME - PATIENT 11.6 SEC (9.8-11.6)
[2017-06-10] MEDS: PANTOPRAZOLE SODIUM 40 MG VIAL IV PUSH SCH ×2 (08:35→21:02)
[2017-06-10] MEDS: METOPROLOL TARTRATE 100 MG TAB PO SCH ×2 (08:38→21:03)
[2017-06-10] MEDS: POLYETHYLENE GLYCOL 17 GM PKG PO SCH (08:38)
[2017-06-10] MEDS: SPIRONOLACTONE 25 MG TAB PO SCH (08:38)
[2017-06-10] MEDS: SODIUM CHLORIDE 0.9% FLUSH 10 ML FLUSH IV FLUSH SCH ×2 (08:38→21:03)
[2017-06-10] MEDS: BISACODYL EC 5 MG TABEC PO SCH (08:39)
[2017-06-10] MEDS: DOCUSATE SODIUM 100 MG CAP PO SCH ×2 (08:39→21:03)
[2017-06-10 08:40] LABS: ANION GAP 11 MEQ/L (5-15); AST (GOT) 26 U/L (15-37); BICARBONATE 25.8 MEQ/L (21.0-32.0); BLOOD UREA NITROGEN 5 MG/DL (7-18); CHLORIDE 98 MEQ/L (98-107); GLOMERULAR FILTRATION RATE 124 ML/MIN (>89); POTASSIUM 3.7 MEQ/L (3.5-5.1); SODIUM (NA) 135 MEQ/L (136-145)
[2017-06-10 08:41] LABS: ALT (GPT) 13 U/L (10-53)
[2017-06-10 08:43] LABS: ALKALINE PHOSPHATASE 67 U/L (45-117); TOTAL BILIRUBIN ADULT 0.5 MG/DL (0.2-1.0)
--- NOTE | 2017-06-10 08:58 | HHI.PR ---
Subjective Remarks nursing unable to place the ngt last night. no flatus or bm. feels a little better but not eating. Objective Vitals heart reg lung diminished bases abd. distended. minimal bs ext no edema Vital Signs Date Time Temp Pulse Resp B/P (MAP) Pulse Ox O2 Delivery O2 Flow Rate FiO2 06/10/17 04:00 97.8 105 16 142/92 (109) 93 06/10/17 01:08 98.3 111 18 154/94 (114) 91 06/09/17 21:45 98.4 113 16 140/100 (113) 93 06/09/17 15:51 98.4 110 18 148/92 (110) 94 06/09/17 14:33 18 06/09/17 12:09 98.1 101 18 142/97 (112) 95 06/09/17 11:35 20 Result Diagram: 06/10/17 0733 06/10/17 0733 Imaging Last Impressions Abdomen Biopsy CT 06/04/17 0000 Signed Impressions: Service Date/Time: Sunday, June 04, 2017 14:57 - CONCLUSION: Uncomplicated CT guided biopsy of the omentum. Chilango Shaw MD Liver Ultrasound 06/02/17 0000 Signed Impressions: Service Date/Time: Friday, June 02, 2017 23:21 - CONCLUSION: 1. Cirrhosis 2. Possible mass right lobe of the liver. MRI is recommended for further evaluation if clinically indicated. 3. Moderate ascites Mert Paige MD Chest X-Ray 05/31/17 1557 Signed Impressions: Service Date/Time: Wednesday, May 31, 2017 16:05 - CONCLUSION: No acute disease. Ivan Lowe MD Abdomen/Pelvis CT 05/31/17 1403 Signed Impressions: Service Date/Time: Wednesday, May 31, 2017 14:41 - CONCLUSION: Ascites appears complex new from 03/23/17. Other than liver disease I don't see an etiology for such. If paracentesis is contemplated fluid should be sent for cytology. Tom Kellogg MD FACRADDENDUM: The above was reviewed. Of note, the patient is a stable 2 cm lesion in the medial aspect of the right hepatic lobe which shows rim enhancement, most characteristic of a benign hemangioma. Re\re aerating the above, there is stranding in the omentum which appears to be isolated. There is no associated anasarca or fluid in the mesenteric leaves. This appears to be a process isolated to the omentum itself. Although there are no discrete soft tissue lesions, findings could represent an interstitial or lymphatic type neoplastic process. Omental biopsy could be considered for further characterization. Jonathan Adame MD Cyst Biopsy Asp-Paracentesis US 05/31/17 0000 Signed Impressions: Service Date/Time: Wednesday, May 31, 2017 16:43 - CONCLUSION: Uncomplicated ultrasound guided paracentesis. Minimal fluid aspirated. Jonathan Adame MD A/P Problem List: (1) Abdominal pain ICD Codes: R10.9 - Unspecified abdominal pain Status: Acute Plan: - comgmt with GI and General Surgery - 52 y/o WF with HTN, hyperlipidemia, borderline diabetes and CAD with hx of NSETMI s/p stent to RCA in 2010. - Pt presented to the ED with complaints of worsening abdominal pain and distension. She states that she has been having issues with abd pain for the last 2 months. For the last 2 weeks she has been having increased generalized abd pain and distension which has been significantly worse over the last 2 days. - CT Abd/pelvis revealed ascites appears complex and new from 03/23/17. - She was previously seen in the ED on 03/[address] abd/pelvis at that time noted an 18mm lesion in the right lobe of the liver, with features favoring hemangioma. She was sent for followup as an outpt with GI. She had an MRI Abdomen W/O Contrast (05/13/17) with benign hemangioma in the caudate lobe of the liver corresponding to the lesion identified on CT otherwise normal examination. - Outpt workup with GI in April 2017 revealed positive ASMA, positive RACHELE, and RODRIGUEZ FibroSURE with fibrosis score of 0.04 (No fibrosis), Steatosis score of 0.78/S3 (marked or severe steatosis). Viral Hepatitis was negative. IgG subclasses were WNL, LKM Ab negative, AMA negative, Iron studies WNL, Ferritin 160 (slightly elevated), Ceruloplasmin WNL. Labs on 05/12/17 with AST 54, ALT 81, AlkPhos 92, Tbili 0.8 , DBili 0.2. - Pt was ordered to have EGD/colonoscopy and liver biopsy but these have not been done yet. - Pt had diagnostic paracentesis on 05/31 with removal of 15cc of fluid - Cell count for the fluid noted WBC count 1657 - Fluid culture with no grown x 48 hours, gram stain with few WBCs - cytology --> atypical epithelioid cells suspicious for malignancy - Repeat paracentesis 06/04/17 - 3,600ml of ascites removed - Ascitic Cell count: WBC 494, RBC 6525 - Fluid culture shows NO growth at 24 hours, gram stain showed NO organisms & NO WBCs - cytology --> pending - Pt underwent Omental Biopsy (06/04/17) --> pathology pending - SAAG >1.1 indicates portal HTN - Case discussed extensively with Radiology, Dr. Adame; GI, Dr. Damon;, and [facility], Dr. Dodge. (06/03/17) - cytology from initial paracentesis (05/31/17) was abnormal showing atypical cells suspicious for malignancy. There was a small cluster of cells suggestive for adenocarcinoma but definitive diagnosis could NOT be given. 06/06/17 CT scan reviewed no acute change identified to explain the diffuse abdominal pain. persistent fluid within the abdomen and pelvis along with thickening of the omentum and mild enhancement/thickening of the peritoneal lining. The volume free fluid in the abdomen and pelvis has slightly increased compared to yesterday's CT performed following paracentesis. Small bilateral pleural effusions, left larger than right. The left pleural effusion has slightly increased in volume since prior CT. There is associated compressive atelectasis in the lung lower bases. Stable 2.1 cm right lobe liver lesion. Although incompletely characterized imaging features favoring a hemangioma -ascites fluid suspicious for malignancy x 2. 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 -abnormal autoimmune markers and ?autoimmune hepatitis -gentle ivf. ..will change to ppn -going for EGD today...?place NGT during the EGD as pt still not having flatus or bm -will ask oncology to evaluate -If egd neg then will probably get repeat paracentesis and liver bx (2) Ascites ICD Codes: R18.8 - Other ascites Status: Acute Plan: - See above (3) Hypertension ICD Codes: I10 - Essential (primary) hypertension Status: Acute Plan: - Home meds resumed - Monitor (4) Hyperlipidemia ICD Codes: E78.5 - Hyperlipidemia, unspecified Status: Acute Plan: - Statin was held as an outpt (5) CAD (coronary artery disease) ICD Codes: I25.10 - Atherosclerotic heart disease of [place] coronary artery without angina pectoris Status: Acute Plan: - Pt with hx of CAD and NSTEMI in 2010 s/p stent in the RCA (6) Tobacco abuse ICD Codes: Z72.0 - Tobacco use Status: Acute Problem Qualifiers (1) Abdominal pain: Qualified Codes: R10.84 - Generalized abdominal pain (2) Ascites: Qualified Codes: R18.8 - Other ascites Zach Briceno MD Jun 10, 2017 08:58
[2017-06-10 09:07] LABS: BANDS 17 % (0-6); MYELOCYTES 4 % (0-0); NEUTROPHIL # MANUAL DIFF 17.5 TH/MM3 (1.8-7.7); POLYS (SEG NEUTROPHILS) 72 % (16-70); WBC DIFF SAMPLE 100
[2017-06-10 09:08] LABS: PLATELET ESTIMATE SMEAR NORMAL (NORMAL); PLATELET MORPHOLOGY NORMAL (NORMAL); SCAN/DIFF FINAL DIFF MANUAL
[2017-06-10 10:32] VITALS: BP 152/91; PULSE 109; RESP 17; TEMP 97.8; O2SAT 92
--- NOTE | 2017-06-10 11:02 | HHI.PR ---
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 so at this point we are going to leave her in the good hands of GI and hematology/oncology pt stated understanding Objective Vital Signs Date Time Temp Pulse Resp B/P (MAP) Pulse Ox O2 Delivery O2 Flow Rate FiO2 06/10/17 10:32 97.8 109 17 152/91 (111) 92 06/10/17 04:00 97.8 105 16 142/92 (109) 93 06/10/17 01:08 98.3 111 18 154/94 (114) 91 06/09/17 21:45 98.4 113 16 140/100 (113) 93 06/09/17 15:51 98.4 110 18 148/92 (110) 94 06/09/17 14:33 18 06/09/17 12:09 98.1 101 18 142/97 (112) 95 06/09/17 11:35 20 I/O 06/09/17 06/09/17 06/09/17 06/10/17 06/10/17 06/10/17 07:00 15:00 23:00 07:00 15:00 23:00 Intake Total 840 ml 534 ml 269 ml Balance 840 ml 534 ml 269 ml Intake Oral 220 ml IV Total 840 ml 314 ml 269 ml # Voids 6 1 # Bowel Movements 0 Result Diagram: 06/10/17 0733 06/10/17 0733 Imaging Last Impressions Abdomen/Pelvis CT 06/09/17 0000 Signed Impressions: Service Date/Time: Friday, June 09, 2017 12:50 - CONCLUSION: 1. Diffuse abdominal ascites. With omental thickening. Ascites could either be from cirrhotic changes or peritoneal carcinomatosis. 2. No findings to indicate bowel obstruction. 3. Small bilateral effusions with dependent atelectasis. Xavier Kellogg MD Abdomen X-Ray 06/08/17 0000 Signed Impressions: Service Date/Time: Thursday, June 08, 2017 12:43 - CONCLUSION: No obstruction. Ivan Lowe MD Paracentesis 06/04/17 0000 Signed Impressions: Service Date/Time: Sunday, June 04, 2017 14:57 - CONCLUSION: Uncomplicated CT Guided paracentesis with removal of 3.6 L of fluid. Sample was saved and sent to the lab for evaluation. Chilango Shaw MD Abdomen Biopsy CT 06/04/17 0000 Signed Impressions: Service Date/Time: Sunday, June 04, 2017 14:57 - CONCLUSION: Uncomplicated CT guided biopsy of the omentum. Chilango Shaw MD Liver Ultrasound 06/02/17 0000 Signed Impressions: Service Date/Time: Friday, June 02, 2017 23:21 - CONCLUSION: 1. Cirrhosis 2. Possible mass right lobe of the liver. MRI is recommended for further evaluation if clinically indicated. 3. Moderate ascites Mert Paige MD Chest X-Ray 05/31/17 1557 Signed Impressions: Service Date/Time: Wednesday, May 31, 2017 16:05 - CONCLUSION: No acute disease. Ivan Lowe MD Cyst Biopsy Asp-Paracentesis US 05/31/17 0000 Signed Impressions: Service Date/Time: Wednesday, May 31, 2017 16:43 - CONCLUSION: Uncomplicated ultrasound guided paracentesis. Minimal fluid aspirated. Jonathan Adame MD Objective Remarks General: A and O X 3 in NAD head: normal cephalic atraumatic Assessment and Plan Problem List: (1) Ascites ICD Codes: R18.8 - Other ascites Status: Acute Plan: cytology shown atypical cells tissue bx: favors signet ring primary GI following EGD today and liver BX after EGD PYTHON ARCHITECT/ONC will sign off at this point, please reconsult if needed. Problem Qualifiers (1) Ascites: Qualified Codes: R18.8 - Other ascites Kendall Samayoa Jun 10, 2017 11:02
[2017-06-10] MEDS ORDERED: DO NOT ADM ANY ANTICOAGULANT DRUGS PRN (11:23)
--- NOTE | 2017-06-10 11:35 | PD.PROCEDR ---
GI Procedure REFERRING PHYSICIAN Dr. Briceno PROCEDURE PERFORMED EGD with biopsy INDICATION FOR PROCEDURE Nausea vomiting, new onset ascites, liver mass PROCEDURE: The procedure, risks and benefits were discussed with Ms. Vicente and informed consent was obtained. Anesthesia sedated her with Diprivan. She was placed in the left lateral decubitus position. EGD: The Pentax videoscope was introduced through the oropharynx and advanced to the second portion of the duodenum under direct visualization. Retroflexion was performed in the stomach. FINDINGS: The esophagus this appeared to be unremarkable and within normal limits The stomach this was filled with gastric juices and some food residue the antral portion was significantly deformed inflamed friable edematous ulcerated suspicious for malignancy this was biopsied the more proximal portions of the stomach were a lot less dramatic this antral deformity is probably functioning is a gastric outlet obstruction The duodenum this was unremarkable and within normal limits ESTIMATED BLOOD LOSS: Minimal SPECIMENS REMOVED: Antral biopsies COMPLICATIONS: None IMPRESSION: Abnormal antrum suspicious for malignancy PLAN: Await biopsies Case discussed with Dr. Briceno and interventional radiology We will hold off on CT guided biopsy and paracentesis NG tube placed to be hooked to low intermittent suction Patient will need oncology evaluation Jefry Davison MD Jun 10, 2017 11:35
[2017-06-10] MEDS ORDERED: PROPOFOL 200 MG/20 ML AMP IV ONE (12:00)
[2017-06-10] MEDS: ONDANSETRON HCL 4 MG/2 ML VIAL IV PUSH PRN (15:45)
[2017-06-10 15:46] LABS: AUTOMATED NEUTROPHIL # 13.4 TH/MM3 (1.8-7.7); BASOPHIL % 0.2 % (0.0-2.0); EOSINOPHIL # 0.1 TH/MM3 (0-0.4); EOSINOPHIL % 0.5 % (0.0-4.0); HEMATOCRIT 36.6 % (35.0-46.0); LYMPH % 11.6 % (9.0-44.0); LYMPHOCYTE # 2.1 TH/MM3 (1.0-4.8); MEAN CELL VOLUME 90.3 FL (80.0-100.0); MEAN CORPUSCULAR HEMOGLOBIN 30.2 PG (27.0-34.0); MEAN CORPUSCULAR HGB CONC 33.4 % (32.0-36.0); MONO % 13.4 % (0.0-8.0); NEUT % 74.3 % (16.0-70.0); PLATELET COUNT 456 TH/MM3 (150-450); RED BLOOD COUNT 4.06 MIL/MM3 (4.00-5.30); RED CELL DISTRIBUTION WIDTH 14.2 % (11.6-17.2)
[2017-06-10 15:51] LABS: HEMO FLAGS AUTO DIFF
[2017-06-10 15:53] LABS: PROTHROMBIN TIME - PATIENT 11.4 SEC (9.8-11.6)
[2017-06-10 16:07] LABS: ANION GAP 11 MEQ/L (5-15); AST (GOT) 20 U/L (15-37); BICARBONATE 26.7 MEQ/L (21.0-32.0); BLOOD UREA NITROGEN 6 MG/DL (7-18); CHLORIDE 98 MEQ/L (98-107); GLOMERULAR FILTRATION RATE 143 ML/MIN (>89); MAGNESIUM 1.9 MG/DL (1.5-2.5); POTASSIUM 3.4 MEQ/L (3.5-5.1); SODIUM (NA) 136 MEQ/L (136-145)
[2017-06-10 16:11] LABS: ALKALINE PHOSPHATASE 68 U/L (45-117); ALT (GPT) 12 U/L (10-53); TOTAL BILIRUBIN ADULT 0.5 MG/DL (0.2-1.0)
[2017-06-10 16:50] LABS: BANDS 8 % (0-6); METAMYELOCYTES 1 % (0-1); MYELOCYTES 2 % (0-0); NEUTROPHIL # MANUAL DIFF 15.1 TH/MM3 (1.8-7.7); POLYS (SEG NEUTROPHILS) 73 % (16-70); SCAN/DIFF FINAL DIFF MANUAL; WBC DIFF SAMPLE 100
[2017-06-10 16:52] LABS: PLATELET ESTIMATE SMEAR HIGH (NORMAL); PLATELET MORPHOLOGY NORMAL (NORMAL)
[2017-06-10 17:40] VITALS: BP 145/91; PULSE 112; RESP 18; TEMP 98; O2SAT 90
--- NOTE | 2017-06-10 20:59 | MB ---
cc: KEVIN CASILLAS, KAITLYN MORENO MD DATE OF CONSULTATION 06/10/17 1965 REQUESTING PHYSICIAN Hospitalist service PRIMARY CARE PHYSICIAN Dr. Kevin Casillas. ONCOLOGIC DIAGNOSIS: Metastatic adenocarcinoma with signet cell features associated with a large gastric antral mass. A constellation of findings concerning for metastatic gastric carcinoma (high-grade). CHIEF COMPLAINT Two-month history of progressive abdominal pain/epigastric pain associated with vomiting and acid reflux. She reports a three-week history of progressive abdominal distension as well. HISTORY OF PRESENT ILLNESS Ms. Vicente is a very pleasant 52-year-old female. 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 She lives at home with her 20-year-old son. Ms. Vicente reports being in her usual good state of health up until February of 2017. She reports noticing epigastric pain and acid reflux beginning in the middle of February. She reports the epigastric pain was unlike any pain she had had before and her primary concern was that of a heart attack. She presented to [facility] for further workup of this pain and underwent a cardiac workup which was essentially negative. Her symptoms of epigastric pain persisted, however she did develop concomitant nausea and vomiting. She was reevaluated and was assessed to have gastric ulcers and gastroesophageal reflux and was put on proton pump inhibitors. Over the course of the next few weeks, she began to develop abdominal distension and progressive pain. Her vomiting worsened and she came into [facility] on 05/31/2017 for further workup and management. Initial workup in the emergency department included a CT scan of the abdomen and pelvis; the scan revealed findings concerning for moderate mesenteric edema concerning for omental stranding as well as omental caking. Free fluid in the abdomen was also noted. Her stomach was noted to be distended as well. She underwent workup which included ultrasound of the liver and a paracentesis performed on 06/04/2017. Cytology from the paracentesis indicated atypical cells suspicious for malignancy. She subsequently underwent image guided biopsy of the omental caking and findings were highly suspicious for signet cell adenocarcinoma. She subsequently underwent evaluation by gastroenterology who performed an EGD earlier today. The EGD report indicates presence of an abnormal mass involving the antrum which was ulcerated and very firm. Multiple biopsies were obtained and pathologic findings are pending at this time. The oncology service has been asked to see her for further workup and management of what is likely an underlying metastatic gastric carcinoma with high-risk features. The patient's major complaint is that of abdominal distension and nausea. She presently has an NG tube in place for decompression purposes. PAST MEDICAL HISTORY 1. History of tobaccoism. 2. Coronary artery disease. 3. Hypertension. 4. Borderline diabetes 5. Hyperlipidemia. PAST SURGICAL HISTORY 1. Coronary artery stent placement about 10 years ago. 2. EGD 3. CT-guided biopsy of the omental thickening. 4. 5. Ultrasound-guided paracentesis. FAMILY HISTORY Mother of metastatic lung cancer (she was a smoker). Father of a metastatic GI malignancy. SOCIAL HISTORY The patient lives at home with her 20-year-old son. She denies alcohol abuse. She reports being a regular smoker but has not smoked in two or three weeks. 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 ALLERGIES PENICILLIN as a child. MEDICATIONS Current inpatient 1. TPN 2. Lactated Ringer's. 3. Aspirin 81 mg at night. 4. Calcium carbonate 500 mg q.2 h as needed for heartburn. 5. Colace 100 mg p.o. b.i.d. 6. Lisinopril 2.5 mg p.o. q.h.s. 7. Metoprolol 25 mg as needed 8. Zofran 4 mg IV q.4 h as needed for nausea and vomiting 9. Pantoprazole 40 mg IV q.12 h 10. Simethicone 125 mg p.o. q. 8 11. Spironolactone 25 mg p.o. daily. 12. Carafate 1 gram p.o. q.h.s. 13. Temazepam 15 mg p.o. q.h.s. REVIEW OF SYSTEMS A 13-point review of systems were obtained. The following are the pertinent positives and negatives: CONSTITUTIONAL: The patient reports fatigue, weakness, loss of appetite and weight loss. She denies fevers or chills. HEENT: Denies headaches, blurry vision, difficulty swallowing, soreness in the throat (she does have soreness of the throat now since she had her NG tube placed). RESPIRATORY: Reports exertional dyspnea, denies cough or hemoptysis. CARDIOVASCULAR: Denies angina-like chest pain, denies PND, orthopnea GI: Please see HPI. She reports abdominal distension, nausea, vomiting, constipation and epigastric pain. : No complaints. OUTREACH ASSISTANT: Denies any focal sensory or motor deficits. MUSCULOSKELETAL: No complaints. SKIN: No complaints. All other review of systems negative. PHYSICAL EXAMINATION VITAL SIGNS: Temperature 98 degrees Fahrenheit, heart rate 112 beats per minute, blood pressure 145/91, O2 sats 90% on room air. GENERAL APPEARANCE: Ms. Vicente is a middle-aged female. She is sitting up in bed. she appears to be uncomfortable mostly secondary to the NG tube and abdominal distension. HEENT: Head atraumatic, normocephalic, conjunctivae are mildly pale, sclerae are anicteric, EOMI, PERRLA, oral exam no pharyngeal erythema. NECK: No palpable cervical or supraclavicular lymphadenopathy. RESPIRATORY: Decreased bibasilar breath sounds. Good air movement over the upper and middle lung zones. No wheezing or rhonchi. CARDIOVASCULAR: tachycardia, regular, S1-S2. No obvious murmurs, rubs or gallops. ABDOMEN: Distended abdomen, firm, tender to mild palpation, no obvious organ enlargement noted. Free fluid is noted within the abdomen. LOWER EXTREMITIES: No pretibial edema or calf tenderness. MUSCULOSKELETAL: Good muscle mass, tone and strength. OUTREACH ASSISTANT: No focal sensory motor deficits. LABORATORY FINDINGS Blood work dated 06/10/2017: WBC count of 18, hemoglobin 12.2 gm/dl, hematocrit 36.6%, platelet count 456, absolute neutrophil count 15. Chemistries: Sodium 136, potassium 3.4, chloride 98, bicarb 26.7, BUN six, creatinine 0.46, random glucose 106, calcium is 8.7, phosphorus is 2.8, total bilirubin 1.9, magnesium is 1.9, total bilirubin 0.5, triglycerides 181, albumin is three. Serum tumor markers CA-125 is 172, CA 19-9 is 17.5, CEA 0.8. AST is 1.2. IMAGING STUDIES CT scan of the abdomen, pelvis dated 06/09/2017: Diffuse abdominal ascites with omental thickening. Suspected peritoneal carcinomatosis. No findings to indicate bowel obstruction. Small bilateral pleural effusions with dependent atelectasis is identified. Pathologic findings: Omental biopsy dated 06/07/2017 indicates findings highly concerning/suspicious for signet ring adenocarcinoma. Gastric antral biopsies are pending at this time. These were submitted on 06/10/2017. ASSESSMENT Miss Vicente is a 52-year-old female with a 2 1/2 month history of progressive epigastric pain, nausea, vomiting and abdominal distension. She was noted on imaging studies on 06/10/2017 to have omental thickening and ascites. Omental biopsy revealed findings highly concerning for a high-grade adenocarcinoma with signet cell features. An EGD ensued and the EGD revealed an antral mass involving the gastric wall associated with ulceration and thickening. Biopsies of this mass were submitted earlier today. Her major complaints are that of abdominal distension and nausea. There were findings on EGD indicating retention of gastric contents. She has had an NG tube placed for suction for comfort purposes. The oncology service has been asked to see her for further workup and management of what appears to be metastatic gastric carcinoma (pending confirmatory biopsy of the gastric mass). RECOMMENDATIONS 1. Gastric mass associated with ulceration and gastric immotility: Await biopsy results. 2. Continue NG-tube with suction for gastric decompression. She may require a decompressive gastrostomy tube to be placed. For the time being, continue TPN for nutrition. Continue pain medications for management of severe cancer related pain. 3. Continue ongoing care. I did talk to the patient and her sister at bedside today about the pathologic findings known thus far and the suspicion for underlying gastric carcinoma. Their questions were answered to their satisfaction. MD SEBASTIEN Dale/ /6:07 PM /8:23 PM
[2017-06-10] MEDS: MULTIVITAMIN IV SCH ×2 (21:01)
[2017-06-10] MEDS: [UNRECOGNIZED DRUG - OTHER] IV SCH ×2 (21:01)
[2017-06-10] MEDS: D5W IV SCH ×2 (21:01)
[2017-06-10] MEDS: AMINO ACID IV SCH ×2 (21:01)
[2017-06-10] MEDS: LISINOPRIL 5 MG TAB PO SCH (21:03)
[2017-06-10] MEDS: ASPIRIN EC 81 MG TABEC PO SCH (21:14)
[2017-06-10] MEDS: FAT EMULSION 20% INJ 250 ML (@10 mls/hr) IV-CENTRAL SCH (21:14)
[2017-06-10 21:21] VITALS: BP 135/87; PULSE 110; RESP 16; TEMP 98; O2SAT 91
[2017-06-11] VITALS (7 sets, daily range): BP systolic 115–150; BP diastolic 49–96; PULSE 98–112; RESP 16–19; TEMP 97.3–98.6; O2SAT 90–96
[2017-06-11] MEDS: HYDROmorphone HCL PF 1 MG/ML VIAL IV PUSH PRN ×8 (01:03→23:05)
[2017-06-11] MEDS: TEMAZEPAM 15 MG CAP PO PRN (01:06)
[2017-06-11] MEDS: SIMETHICONE 125 MG CHEWABLE TAB PO SCH ×3 (06:12→20:13)
[2017-06-11 07:14] LABS: ANION GAP 5 MEQ/L (5-15); AST (GOT) 19 U/L (15-37); BICARBONATE 30.7 MEQ/L (21.0-32.0); BLOOD UREA NITROGEN 9 MG/DL (7-18); CHLORIDE 96 MEQ/L (98-107); GLOMERULAR FILTRATION RATE 124 ML/MIN (>89); POTASSIUM 3.7 MEQ/L (3.5-5.1); SODIUM (NA) 132 MEQ/L (136-145)
[2017-06-11 07:16] LABS: ALT (GPT) 15 U/L (10-53)
[2017-06-11 07:18] LABS: ALKALINE PHOSPHATASE 65 U/L (45-117); TOTAL BILIRUBIN ADULT 0.4 MG/DL (0.2-1.0)
[2017-06-11 07:28] LABS: HEMATOCRIT 33.9 % (35.0-46.0); MEAN CELL VOLUME 90.4 FL (80.0-100.0); MEAN CORPUSCULAR HEMOGLOBIN 31.1 PG (27.0-34.0); MEAN CORPUSCULAR HGB CONC 34.5 % (32.0-36.0); PLATELET COUNT 413 TH/MM3 (150-450); RED BLOOD COUNT 3.75 MIL/MM3 (4.00-5.30); RED CELL DISTRIBUTION WIDTH 14.1 % (11.6-17.2); REVIEW FLAG FINAL; WHITE BLOOD COUNT 18.8 TH/MM3 (4.0-11.0)
[2017-06-11] MEDS: ONDANSETRON HCL 4 MG/2 ML VIAL IV PUSH PRN ×2 (07:42→14:12)
[2017-06-11] MEDS: SODIUM CHLORIDE 0.9% FLUSH 10 ML FLUSH IV FLUSH SCH ×2 (07:42→20:05)
[2017-06-11] MEDS: POLYETHYLENE GLYCOL 17 GM PKG PO SCH (09:00)
--- NOTE | 2017-06-11 09:16 | HHI.PR ---
Subjective Remarks ngt. pt with sore throat and miserable. no flatus or bm Objective Vitals ngt. heart reg lung diminished bases abd distended. no bs ext no pitting Vital Signs Date Time Temp Pulse Resp B/P (MAP) Pulse Ox O2 Delivery O2 Flow Rate FiO2 06/11/17 05:00 18 06/11/17 04:50 97.9 108 16 141/96 (111) 91 06/11/17 00:03 98.2 112 16 150/92 (111) 90 06/10/17 21:21 98.0 110 16 135/87 (103) 91 06/10/17 17:40 98.0 112 18 145/91 (109) 90 06/10/17 11:35 98.1 109 20 134/80 (98) 92 06/10/17 10:32 97.8 109 17 152/91 (111) 92 Result Diagram: 06/11/17 0606 06/11/17 0606 Imaging Last Impressions Abdomen Biopsy CT 06/04/17 0000 Signed Impressions: Service Date/Time: Sunday, June 04, 2017 14:57 - CONCLUSION: Uncomplicated CT guided biopsy of the omentum. Chilango Shaw MD Liver Ultrasound 06/02/17 0000 Signed Impressions: Service Date/Time: Friday, June 02, 2017 23:21 - CONCLUSION: 1. Cirrhosis 2. Possible mass right lobe of the liver. MRI is recommended for further evaluation if clinically indicated. 3. Moderate ascites Mert Paige MD Chest X-Ray 05/31/17 1557 Signed Impressions: Service Date/Time: Wednesday, May 31, 2017 16:05 - CONCLUSION: No acute disease. Ivan Lowe MD Abdomen/Pelvis CT 05/31/17 1403 Signed Impressions: Service Date/Time: Wednesday, May 31, 2017 14:41 - CONCLUSION: Ascites appears complex new from 03/23/17. Other than liver disease I don't see an etiology for such. If paracentesis is contemplated fluid should be sent for cytology. Tom Kellogg MD FACRADDENDUM: The above was reviewed. Of note, the patient is a stable 2 cm lesion in the medial aspect of the right hepatic lobe which shows rim enhancement, most characteristic of a benign hemangioma. Re\re aerating the above, there is stranding in the omentum which appears to be isolated. There is no associated anasarca or fluid in the mesenteric leaves. This appears to be a process isolated to the omentum itself. Although there are no discrete soft tissue lesions, findings could represent an interstitial or lymphatic type neoplastic process. Omental biopsy could be considered for further characterization. Jonathan Adame MD Cyst Biopsy Asp-Paracentesis US 05/31/17 0000 Signed Impressions: Service Date/Time: Wednesday, May 31, 2017 16:43 - CONCLUSION: Uncomplicated ultrasound guided paracentesis. Minimal fluid aspirated. Jonathan Adame MD A/P Problem List: (1) Abdominal pain ICD Codes: R10.9 - Unspecified abdominal pain Status: Acute Plan: - 52 y/o WF with HTN, hyperlipidemia, borderline diabetes and CAD with hx of NSETMI s/p stent to RCA in 2010. - Pt presented to the ED with complaints of worsening abdominal pain and distension. She states that she has been having issues with abd pain for the last 2 months. For the last 2 weeks she has been having increased generalized abd pain and distension which has been significantly worse over the last 2 days. - CT Abd/pelvis revealed ascites appears complex and new from 03/23/17. - She was previously seen in the ED on 03/[address] abd/pelvis at that time noted an 18mm lesion in the right lobe of the liver, with features favoring hemangioma. She was sent for followup as an outpt with GI. She had an MRI Abdomen W/O Contrast (05/13/17) with benign hemangioma in the caudate lobe of the liver corresponding to the lesion identified on CT otherwise normal examination. - Outpt workup with GI in April 2017 revealed positive ASMA, positive RACHELE, and RODRIGUEZ FibroSURE with fibrosis score of 0.04 (No fibrosis), Steatosis score of 0.78/S3 (marked or severe steatosis). Viral Hepatitis was negative. IgG subclasses were WNL, LKM Ab negative, AMA negative, Iron studies WNL, Ferritin 160 (slightly elevated), Ceruloplasmin WNL. Labs on 05/12/17 with AST 54, ALT 81, AlkPhos 92, Tbili 0.8 , DBili 0.2. autoimmune hepatitis was questioned. - - Pt had diagnostic paracentesis on 05/31 with removal of 15cc of fluid - Cell count for the fluid noted WBC count 1657 - Fluid culture with no growth - cytology --> atypical epithelioid cells suspicious for malignancy - Repeat paracentesis 06/04/17 - 3,600ml of ascites removed - Ascitic Cell count: WBC 494, RBC 6525 - Fluid culture shows ngtd - cytology -->suspicious for malignant cells - Pt underwent Omental Biopsy (06/04/17) --> path suspicious for signet cell adenoca -EGD 06/11. antral ulcerated mass with near obstruction of outlet. - cont ngt for decompression -get picc and convert ppn to tpn -await path from gastric bx -await management reccs for probably metastatic gastric ca from oncology. -dvt prophylaxis -PT. (2) Ascites ICD Codes: R18.8 - Other ascites Status: Acute Plan: - See above (3) Hypertension ICD Codes: I10 - Essential (primary) hypertension Status: Acute Plan: - Home meds resumed - Monitor (4) Hyperlipidemia ICD Codes: E78.5 - Hyperlipidemia, unspecified Status: Acute Plan: - Statin was held as an outpt (5) CAD (coronary artery disease) ICD Codes: I25.10 - Atherosclerotic heart disease of [place] coronary artery without angina pectoris Status: Acute Plan: - Pt with hx of CAD and NSTEMI in 2010 s/p stent in the RCA (6) Tobacco abuse ICD Codes: Z72.0 - Tobacco use Status: Acute Problem Qualifiers (1) Abdominal pain: Qualified Codes: R10.84 - Generalized abdominal pain (2) Ascites: Qualified Codes: R18.8 - Other ascites Zach Briceno MD Jun 11, 2017 09:16
[2017-06-11] MEDS: METOPROLOL TARTRATE 100 MG TAB PO SCH ×2 (09:18→20:09)
[2017-06-11] MEDS: DOCUSATE SODIUM 100 MG CAP PO SCH ×2 (09:18→20:07)
[2017-06-11] MEDS: SUCRALFATE 1 GM/10 ML CUP PO SCH ×4 (09:18→20:06)
[2017-06-11] MEDS: PANTOPRAZOLE SODIUM 40 MG VIAL IV PUSH SCH ×2 (09:18→20:06)
[2017-06-11] MEDS: BISACODYL EC 5 MG TABEC PO SCH (09:18)
[2017-06-11] MEDS: SPIRONOLACTONE 25 MG TAB PO SCH (09:18)
[2017-06-11] MEDS ORDERED: PHENOL 1.4% SOLN 180 ML BTL OROPHARYNG ONE (10:00)
[2017-06-11] MEDS: PHENOL 1.4% SOLN 180 ML BTL OROPHARYNG PRN ×2 (10:56→17:40)
--- NOTE | 2017-06-11 11:36 | HHI.GIFU ---
Subjective Remarks Up in chair. NGT to LIWS- no drainage. Continues to have abdominal distention , no bm. Denies passing any flatus. She is getting PPN. Nurse reports [facility] access team was consulted for PICC line. Pain controlled with pain meds. (Suzi Hobbs) Objective Vitals I&O Vital Signs Date Time Temp Pulse Resp B/P (MAP) Pulse Ox O2 Delivery O2 Flow Rate FiO2 06/11/17 08:00 97.3 103 16 150/92 (111) 92 06/11/17 05:00 18 06/11/17 04:50 97.9 108 16 141/96 (111) 91 06/11/17 00:03 98.2 112 16 150/92 (111) 90 06/10/17 21:21 98.0 110 16 135/87 (103) 91 06/10/17 17:40 98.0 112 18 145/91 (109) 90 06/10/17 11:35 98.1 109 20 134/80 (98) 92 I/O 06/10/17 06/10/17 06/10/17 06/11/17 06/11/17 06/11/17 07:00 15:00 23:00 07:00 15:00 23:00 Intake Total 100 ml 1240 ml 892 ml Output Total 650 ml 1 ml 125 ml Balance 100 ml 590 ml 891 ml -125 ml Intake Oral 240 ml IV Total 1000 ml 892 ml Other 100 ml Output Urine Total 650 ml 125 ml Gastric Drainage Total 1 ml # Voids 1 # Bowel Movements 0 Laboratory Laboratory Tests Test 06/10/17 14:41 06/11/17 06:06 White Blood Count 18.0 18.8 Red Blood Count 4.06 3.75 Hemoglobin 12.2 11.7 Hematocrit 36.6 33.9 Mean Corpuscular Volume 90.3 90.4 Mean Corpuscular Hemoglobin 30.2 31.1 Mean Corpuscular Hemoglobin Concent 33.4 34.5 Red Cell Distribution Width 14.2 14.1 Platelet Count 456 413 Mean Platelet Volume 7.1 7.1 Neutrophils (%) (Auto) 74.3 Lymphocytes (%) (Auto) 11.6 Monocytes (%) (Auto) 13.4 Eosinophils (%) (Auto) 0.5 Basophils (%) (Auto) 0.2 Neutrophils # (Auto) 13.4 Lymphocytes # (Auto) 2.1 Monocytes # (Auto) 2.4 Eosinophils # (Auto) 0.1 Basophils # (Auto) 0.0 CBC Comment AUTO DIFF Differential Total Cells Counted 100 Neutrophils % (Manual) 73 Band Neutrophils % 8 Lymphocytes % 7 Monocytes % 9 Neutrophils # (Manual) 15.1 Metamyelocytes 1 Myelocytes 2 Differential Comment FINAL DIFF MANUAL Platelet Estimate HIGH Platelet Morphology Comment NORMAL Prothrombin Time 11.4 Prothromb Time International Ratio 1.0 Blood Urea Nitrogen 6 9 Creatinine 0.46 0.52 Random Glucose 106 146 Total Protein 6.8 6.9 Albumin 3.0 2.8 Calcium Level 8.7 8.7 Phosphorus Level 2.8 Magnesium Level 1.9 Alkaline Phosphatase 68 65 Aspartate Amino Transf (AST/SGOT) 20 19 Alanine Aminotransferase (ALT/SGPT) 12 15 Total Bilirubin 0.5 0.4 Sodium Level 136 132 Potassium Level 3.4 3.7 Chloride Level 98 96 Carbon Dioxide Level 26.7 30.7 Anion Gap 11 5 Estimat Glomerular Filtration Rate 143 124 Triglycerides Level 181 Date/Time Source Procedure Growth Status 06/01/17 01:35 Blood Peripheral Aerobic Blood Culture - Final NO GROWTH IN 5 DAYS Complete 06/01/17 01:35 Blood Peripheral Anaerobic Blood Culture - Final NO GROWTH IN 5 DAYS Complete 06/04/17 15:22 Fluid Peritoneal Fluid Gram Stain - Final Complete 06/04/17 15:22 Fluid Peritoneal Fluid Body Fluid Culture - Final NO GROWTH IN 72 HRS.--AEROBICALLY OR ... Complete Imaging Last Impressions Abdomen/Pelvis CT 06/09/17 0000 Signed Impressions: Service Date/Time: Friday, June 09, 2017 12:50 - CONCLUSION: 1. Diffuse abdominal ascites. With omental thickening. Ascites could either be from cirrhotic changes or peritoneal carcinomatosis. 2. No findings to indicate bowel obstruction. 3. Small bilateral effusions with dependent atelectasis. Xavier Kellogg MD Abdomen X-Ray 06/08/17 0000 Signed Impressions: Service Date/Time: Thursday, June 08, 2017 12:43 - CONCLUSION: No obstruction. Ivan Lowe MD Paracentesis 06/04/17 0000 Signed Impressions: Service Date/Time: Sunday, June 04, 2017 14:57 - CONCLUSION: Uncomplicated CT Guided paracentesis with removal of 3.6 L of fluid. Sample was saved and sent to the lab for evaluation. Chilango Shaw MD Abdomen Biopsy CT 06/04/17 0000 Signed Impressions: Service Date/Time: Sunday, June 04, 2017 14:57 - CONCLUSION: Uncomplicated CT guided biopsy of the omentum. Chilango Shaw MD Liver Ultrasound 06/02/17 0000 Signed Impressions: Service Date/Time: Friday, June 02, 2017 23:21 - CONCLUSION: 1. Cirrhosis 2. Possible mass right lobe of the liver. MRI is recommended for further evaluation if clinically indicated. 3. Moderate ascites Mert Paige MD Chest X-Ray 05/31/17 1557 Signed Impressions: Service Date/Time: Wednesday, May 31, 2017 16:05 - CONCLUSION: No acute disease. Ivan Lowe MD Cyst Biopsy Asp-Paracentesis US 05/31/17 0000 Signed Impressions: Service Date/Time: Wednesday, May 31, 2017 16:43 - CONCLUSION: Uncomplicated ultrasound guided paracentesis. Minimal fluid aspirated. Jonathan Adame MD Physical Exam HEENT: Normocephalic; atraumatic; no jaundice. CHEST: Resp. shallow/even. CARDIAC: RRR ABDOMEN: Firm, distended, diffuse tenderness; bowel sounds very hypoactive, but did auscultate BS EXTREMITIES: Trace BLE edema SKIN: Normal; no rash; no jaundice. AS400 PROGRAMMER: No focal deficits; alert and oriented times three. (Suzi Hobbs) Assessment and Plan Plan ASSESSMENT: - Abnormal antrum suspicious for malignancy. S/P EGD (06/10/17). Pathology pending. Omentum biopsy (06/07/17)---> features highly suspicious for signet ring adenocarcinoma. Oncology following. - New onset ascites, spontaneous bacterial peritonitis. S/P US Paracentesis ()---> 15cc. Peritoneal 1657, RBC 349. Fluid cultures no growth in 48 hours. SAAG> 1.1, indicating portal hypertension as the etiology for her ascites. Cytology atypical epithelioid cells are present, suspicious for malignancy. SAAG suggests portal htn, but recently had fibrosis score of 0.04 on RODRIGUEZ fibrosure. Liver US (06/02/17)--> Cirrhosis, possible mass right lobe of the liver. MRI is recommended for further evaluation if clinically indicated, moderate ascites. Tumor Markers - Ca 125 172.6, Ca 19-9 17.5, Ca15-3 24.2, CEA 0.8, AFP 1.2. Suspect malignant ascites. S/P Repeat CT guided Paracentesis (06/04), cx no growth 72 hours. S/P Omental biopsy (06/07/17), pathology with features highly suspicious for signet ring adenocarcinoma. Spironolactone - Abdominal pain, nausea, distention, constipation. CT scan abdomen and pelvis ( 05/31/17)---> Ascites appears complex new from 03/23/17. Other than liver disease I don't see an etiology for such. If paracentesis is contemplated fluid should be sent for cytology. ADDENDUM: The above was reviewed. Of note, the patient is a stable 2 cm lesion in the medial aspect of the right hepatic lobe which shows rim enhancement, most characteristic of a benign hemangioma. Re\re aerating the above, there is stranding in the omentum which appears to be isolated. There is no associated anasarca or fluid in the mesenteric leaves. This appears to be a process isolated to the omentum itself. Although there are no discrete soft tissue lesions, findings could represent an interstitial or lymphatic type neoplastic process. Omental biopsy could be considered for further characterization. S/P CT guided biopsy of the omentum (06/04/17) suspicious for signet ring adenocarcinoma. S/P Relistor 06/08, no results. CT abdomen and pelvis without iv contrast (06/09/17)---> Diffuse abdominal ascites. With omental thickening. Ascites could either be from cirrhotic changes or peritoneal carcinomatosis, no findings to indicate bowel obstruction, small bilateral effusions with dependent atelectasis. NGT was placed during EGD. This is to LIWS, but not putting out much drainage. Still no BM/ flatus. Started on PPN. Possible need for G/J tube placement by IR. ? Dysmotility. ? SBFT - Malnutrition. Started on PPN, [facility] access team following for PICC. - Severe GERD. PPI. Carafate - Liver mass, liver US as above, with elevated Ca 125 at 172.6, cytology from paracentesis suspicious for malignancy. Omentum bx suspicious for signet cell adenocarcinoma. EGD with abnormal antrum, suggestive fo cancer. Pathology from EGD pending. - ? Portal hypertension. CT with small liver, SAAG > 1.1, indicating portal hypertension, mild coagulopathy, and hypoalbuminemia. S/P Outpatient workup April of 2017- ASMA (+), RACHELE (+), RODRIGUEZ Fibrosure with fibrosis score of 0.04, steatosis score of 0.78/S3 (marked or severe steatosis). Viral hepatitis was negative. IgG subclasses unremarkable. AMA negative. Iron studies unremarkable, Ceruloplasmin unremarkable. Pt with portal htn, although fibrosis score of 0.04 in Apr. - (+) RACHELE. Titer 1:640. Actin IgG ab 36 H. - Leukocytosis. WBC 18.8. BCx no growth 5 day. Peritoneal fluid no growth 72 hours. PLAN - NPO - NGT to LIWS - Await pathology from EGD - PPN/TPN - Protonix/Carafate - Spironolactone - ? G/J tube - Oncology following - Further recommendations to follow after seen and examined by Dr. Davison (Suzi Hobbs) Physician Comments Patient seen and examined Agree with above Continue with current supportive care Monitor labs (Jefry Davison MD) Suzi Hobbs Jun 11, 2017 11:36 Jefry Davison MD Jun 11, 2017 22:32
[2017-06-11] MEDS ORDERED: SODIUM CHLORIDE 0.9% FLUSH 10 ML FLUSH IV FLUSH PRN (12:30)
--- NOTE | 2017-06-11 13:30 | RADRPT ---
EXAM DATE/TIME: 06/11/2017 12:17 [facility] COMPARISON: CHEST PA & LAT, May 31, 2017, 16:05. CHEST SINGLE AP, January 05, 2017, 11:41. INDICATIONS : Picc placement. MEDICAL HISTORY : Cardiovascular disease. Hypertension Diabetes mellitus type II. SURGICAL HISTORY : section. ENCOUNTER: Initial ACUITY: 1 week PAIN SCORE: 0/10 LOCATION: Bilateral chest FINDINGS: A single AP semierect portable view of the chest was obtained and demonstrates interval placement of a nasogastric tube is seen coursing through the esophagus into the stomach. A right-sided PICC line i s in place with the tip injecting at the junction of the right atrium and superior vena cava. There i s a new small to moderate left effusion. There is hazy opacity in both lung bases left greater than r ight. The heart size appears mildly prominent. The patient is mildly rotated. CONCLUSION: 1. Interval placement of right-sided PICC line and nasogastric tube. 2. New abnormal opacity in both lung bases left greater than right with small to moderate left effusi on. Teddy Perez MD on June 11, 2017 at 13:27 Board Certified Radiologist. This report was verified electronically.
--- NOTE | 2017-06-11 15:20 | HHI.PR ---
Subjective Subjective Notes C/o constipation. Omental biopsy pathology and endoscopy reveal primary antral malignancy. Objective Vitals/I&O Vital Signs Date Time Temp Pulse Resp B/P (MAP) Pulse Ox O2 Delivery O2 Flow Rate FiO2 06/11/17 12:00 98.3 103 16 142/85 (104) 91 Labs Laboratory Tests Test 06/11/17 06:06 White Blood Count 18.8 Red Blood Count 3.75 Hemoglobin 11.7 Hematocrit 33.9 Mean Corpuscular Volume 90.4 Mean Corpuscular Hemoglobin 31.1 Mean Corpuscular Hemoglobin Concent 34.5 Red Cell Distribution Width 14.1 Platelet Count 413 Mean Platelet Volume 7.1 Blood Urea Nitrogen 9 Creatinine 0.52 Random Glucose 146 Total Protein 6.9 Albumin 2.8 Calcium Level 8.7 Alkaline Phosphatase 65 Aspartate Amino Transf (AST/SGOT) 19 Alanine Aminotransferase (ALT/SGPT) 15 Total Bilirubin 0.4 Sodium Level 132 Potassium Level 3.7 Chloride Level 96 Carbon Dioxide Level 30.7 Anion Gap 5 Estimat Glomerular Filtration Rate 124 Date/Time Source Procedure Growth Status 06/01/17 01:35 Blood Peripheral Aerobic Blood Culture - Final NO GROWTH IN 5 DAYS Complete 06/01/17 01:35 Blood Peripheral Anaerobic Blood Culture - Final NO GROWTH IN 5 DAYS Complete 06/04/17 15:22 Fluid Peritoneal Fluid Gram Stain - Final Complete 06/04/17 15:22 Fluid Peritoneal Fluid Body Fluid Culture - Final NO GROWTH IN 72 HRS.--AEROBICALLY OR ... Complete Radiology Last Impressions Abdomen/Pelvis CT 06/05/17 0000 Signed Impressions: Service Date/Time: Monday, June 05, 2017 20:16 - CONCLUSION: 1. No acute change is identified to explain the diffuse abdominal pain. However, there is persistent fluid within the abdomen and pelvis along with thickening of the omentum and mild enhancement/thickening of the peritoneal lining. The volume of free fluid in the abdomen and pelvis has slightly increased compared to yesterday's CT performed following paracentesis. 2. Small bilateral pleural effusions, left larger than right. The left pleural effusion has slightly increased in volume since yesterday's CT. There is associated compressive atelectasis in the lower lobes. 3. Stable 2.1 cm right lobe liver lesion. Although incompletely characterized imaging features favor a hemangioma. Chilango Shaw MD Paracentesis 06/04/17 0000 Signed Impressions: Service Date/Time: Sunday, June 04, 2017 14:57 - CONCLUSION: Uncomplicated CT Guided paracentesis with removal of 3.6 L of fluid. Sample was saved and sent to the lab for evaluation. Chilango Shaw MD Abdomen Biopsy CT 06/04/17 0000 Signed Impressions: Service Date/Time: Sunday, June 04, 2017 14:57 - CONCLUSION: Uncomplicated CT guided biopsy of the omentum. Chilango Shaw MD Liver Ultrasound 06/02/17 0000 Signed Impressions: Service Date/Time: Friday, June 02, 2017 23:21 - CONCLUSION: 1. Cirrhosis 2. Possible mass right lobe of the liver. MRI is recommended for further evaluation if clinically indicated. 3. Moderate ascites Mert Paige MD Chest X-Ray 05/31/17 1557 Signed Impressions: Service Date/Time: Wednesday, May 31, 2017 16:05 - CONCLUSION: No acute disease. Ivan Lowe MD Cyst Biopsy Asp-Paracentesis US 05/31/17 0000 Signed Impressions: Service Date/Time: Wednesday, May 31, 2017 16:43 - CONCLUSION: Uncomplicated ultrasound guided paracentesis. Minimal fluid aspirated. Jonathan Adame MD Last Impressions Chest X-Ray 05/31/17 1557 Signed Impressions: Service Date/Time: Wednesday, May 31, 2017 16:05 - CONCLUSION: No acute disease. Ivan Lowe MD Abdomen/Pelvis CT 05/31/17 1403 Signed Impressions: Service Date/Time: Wednesday, May 31, 2017 14:41 - CONCLUSION: Ascites appears complex new from 03/23/17. Other than liver disease I don't see an etiology for such. If paracentesis is contemplated fluid should be sent for cytology. Tom Kellogg MD FACR Cyst Biopsy Asp-Paracentesis US 05/31/17 0000 Signed Impressions: Service Date/Time: Wednesday, May 31, 2017 16:43 - CONCLUSION: Uncomplicated ultrasound guided paracentesis. Minimal fluid aspirated. Jonathan Adame MD Narrative Exam NAD Abd: distended. NG with no output. A/P Assessment and Plan 52 yo F with apparent stage 4 gastric adenocarcinoma, with antral mass which is narrowing gastric outlet, malignant ascites, likely omental caking. D/w Dr. Davison- scope was able to pass through mass into duodenum. NGT was placed yesterday and has been to suction but has had no output. D/w Dr. Davis regarding consideration for G, J tube, possible gastrojejunostomy. Will attempt trial of NGT clamping and pureed diet, Ensure. If this fails she may require operative G/J tubes. Will follow along. Scooby Yoo MD Jun 11, 2017 15:20
--- NOTE | 2017-06-11 18:34 | PD.ONC.PN ---
Subjective Subjective Remarks Patient seen and examined, vital signs, medications and labs reviewed. Gastric biopsy pathology reports reviewed. Subjectively; the patient reports attempting to drink and eat liquids and soft solids. She reports continued abdominal pain, distention and pain associated with the NG tube. I talked to her about the gastric biopsy results which confirmed presence of poorly differentiated adenocarcinoma. I talked to her about initiation of inpatient systemic chemotherapy. She is agreeable to proceed with inpatient chemotherapy. Objective Data Date Time Temp Pulse Resp B/P (MAP) Pulse Ox O2 Delivery O2 Flow Rate FiO2 06/11/17 12:00 98.3 103 16 142/85 (104) 91 06/11/17 08:00 97.3 103 16 150/92 (111) 92 06/11/17 05:00 18 06/11/17 04:50 97.9 108 16 141/96 (111) 91 06/11/17 00:03 98.2 112 16 150/92 (111) 90 06/10/17 21:21 98.0 110 16 135/87 (103) 91 06/11/17 06/11/17 06/11/17 07:00 15:00 23:00 Intake Total 892 ml 750 ml 1085 ml Output Total 1 ml 125 ml 125 ml Balance 891 ml 625 ml 960 ml Result Diagram: 06/11/17 0606 06/11/17 0606 Laboratory Results Laboratory Tests Test 06/11/17 06:06 White Blood Count 18.8 TH/MM3 Red Blood Count 3.75 MIL/MM3 Hemoglobin 11.7 GM/DL Hematocrit 33.9 % Mean Corpuscular Volume 90.4 FL Mean Corpuscular Hemoglobin 31.1 PG Mean Corpuscular Hemoglobin Concent 34.5 % Red Cell Distribution Width 14.1 % Platelet Count 413 TH/MM3 Mean Platelet Volume 7.1 FL Blood Urea Nitrogen 9 MG/DL Creatinine 0.52 MG/DL Random Glucose 146 MG/DL Total Protein 6.9 GM/DL Albumin 2.8 GM/DL Calcium Level 8.7 MG/DL Alkaline Phosphatase 65 U/L Aspartate Amino Transf (AST/SGOT) 19 U/L Alanine Aminotransferase (ALT/SGPT) 15 U/L Total Bilirubin 0.4 MG/DL Sodium Level 132 MEQ/L Potassium Level 3.7 MEQ/L Chloride Level 96 MEQ/L Carbon Dioxide Level 30.7 MEQ/L Anion Gap 5 MEQ/L Estimat Glomerular Filtration Rate 124 ML/MIN Imaging Studies Last 24 hours Impressions Chest X-Ray 06/11/17 0000 Signed Impressions: Service Date/Time: Sunday, June 11, 2017 12:17 - CONCLUSION: 1. Interval placement of right-sided PICC line and nasogastric tube. 2. New abnormal opacity in both lung bases left greater than right with small to moderate left effusion. Teddy Perez MD Administered Medications Medications (Trade) Dose Ordered Sig/Nelda Route PRN Reason Start Time Stop Time Status Last Admin Dose Admin Sodium Chloride (NS Flush) 2 ml BID IV FLUSH 05/31/17 21:00 06/11/17 07:42 Temazepam (Restoril) 15 mg HS PRN PO INSOMNIA 05/31/17 16:00 06/11/17 01:06 Magnesium Hydroxide (Milk Of Magnesia Liq) 30 ml Q12H PRN PO Mild constipation 05/31/17 16:00 06/02/17 02:16 Aspirin (Ecotrin Ec) 81 mg HS PO 05/31/17 21:00 06/10/17 21:14 Metoprolol Tartrate (Lopressor) 100 mg BID PO 05/31/17 21:00 06/11/17 09:18 Lisinopril (Prinivil) 2.5 mg HS PO 05/31/17 21:00 06/10/17 21:03 Docusate Sodium (Colace) 100 mg BID PO 06/02/17 15:00 06/11/17 09:18 Spironolactone (Aldactone) 25 mg DAILY PO 06/02/17 18:45 06/11/17 09:18 Promethazine HCl (Phenergan) 25 mg Q4H PRN PO NAUSEA UNRELIEVED BY ZOFRAN 06/07/17 21:00 06/08/17 01:37 Ondansetron HCl (Zofran Inj) 4 mg Q4H PRN IV PUSH NAUSEA 06/07/17 21:00 06/11/17 14:12 Pantoprazole Sodium (Protonix Inj) 40 mg Q12H IV PUSH 06/08/17 21:00 06/11/17 09:18 Bisacodyl (Dulcolax Ec) 10 mg DAILY PO 06/09/17 09:00 06/11/17 09:18 Simethicone (Phazyme Chew) 125 mg Q8HR PO 06/08/17 14:00 06/11/17 12:36 Sucralfate (Carafate Liq) 1 gm ACHS PO 06/08/17 17:00 06/11/17 17:17 Multivitamins 10 ml/Amino Acids/ Electrolytes/ Dextrose 2,010 ml @ 75 mls/hr Q24H IV 06/10/17 20:00 06/10/17 21:01 Fat Emulsion Intravenous 250 ml @ 10 mls/hr Q24H IV-CENTRAL 06/10/17 20:00 06/10/17 21:14 Phenol (Chloraseptic [place]) 2 spray Q2H PRN OROPHARYNG throat pain 06/11/17 12:00 06/11/17 17:40 Hydromorphone HCl (Dilaudid Pf Inj) 1 mg Q3H PRN IV PUSH pain 3-10 06/11/17 12:00 06/11/17 17:17 Objective Remarks GENERAL APPEARANCE: Ms. Vicente is a middle-aged female. She is sitting up in bed. she appears to be uncomfortable mostly secondary to the NG tube and abdominal distension. HEENT: Head atraumatic, normocephalic, conjunctivae are mildly pale, sclerae are anicteric, EOMI, PERRLA, oral exam no pharyngeal erythema. NECK: No palpable cervical or supraclavicular lymphadenopathy. RESPIRATORY: Decreased bibasilar breath sounds. Good air movement over the upper and middle lung zones. No wheezing or rhonchi. CARDIOVASCULAR: tachycardia, regular, S1-S2. No obvious murmurs, rubs or gallops. ABDOMEN: Distended abdomen, firm, tender to mild palpation, no obvious organ enlargement noted. Free fluid is noted within the abdomen. LOWER EXTREMITIES: No pretibial edema or calf tenderness. MUSCULOSKELETAL: Good muscle mass, tone and strength. WEIGHER OPERATOR: No focal sensory motor deficits. Assessment/Plan Assessment Ms. Vicente is a 52-year-old female with a 2.5 month history of progressive epigastric pain, nausea, vomiting and abdominal distension. She was noted on imaging studies on 06/10/2017 to have omental thickening and ascites. Omental biopsy revealed findings highly concerning for a high-grade adenocarcinoma with signet cell features. An EGD ensued and the EGD revealed an antral mass involving the gastric wall associated with ulceration and thickening. Biopsies of this mass were submitted earlier today. Her major complaints are that of abdominal distension and nausea. There were findings on EGD indicating retention of gastric contents, and antral mass was also identified, biopsy of this lesion revealed poorly differentiated adenocarcinoma. Plan 1. 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 She has bowel obstruction or partial bowel obstruction at the level of the antrum due to the primary tumor as well as involving the small bowel due to peritoneal carcinomatosis. She is presently on TPN and is also has an NG tube in place. She has been recommended initiation of palliative systemic therapy with FOLFOX to help debulk her tumor to relieve some of her gastric symptoms of obstruction. I have requested HER-2/cristina staining on her disease. Should she have HER-2 amplification she she would be a candidate for combination systemic chemotherapy with trastuzumab. I will request transferred to the oncology unit. Chemotherapy teaching has been ordered. She does have IV access with a right upper extremity PICC line. Patient was counseled on potential adverse effects related to chemotherapy including peripheral neuropathy, nausea, increased risk of cytopenias and sepsis. She is agreeable to proceed with chemotherapy. Chemotherapy orders have been written and will be added to her chart. Anticipated chemotherapy start date will be 06/12/2017. Memo Davis MD Jun 11, 2017 18:34
[2017-06-11] MEDS: AMINO ACID IV SCH ×2 (20:05)
[2017-06-11] MEDS: D5W IV SCH ×2 (20:05)
[2017-06-11] MEDS: [UNRECOGNIZED DRUG - OTHER] IV SCH ×2 (20:05)
[2017-06-11] MEDS: MULTIVITAMIN IV SCH ×2 (20:05)
[2017-06-11] MEDS: FAT EMULSION 20% INJ 250 ML (@10 mls/hr) IV-CENTRAL SCH (20:05)
[2017-06-11] MEDS: LISINOPRIL 5 MG TAB PO SCH (20:08)
[2017-06-11] MEDS: ASPIRIN EC 81 MG TABEC PO SCH (20:09)
[2017-06-11] MEDS: ERYTHROMYCIN EC 250 MG TABEC PO SCH (20:47)
[2017-06-11] MEDS ORDERED: DEXAMETHASONE INJ 20 MG in SODIUM CHLORIDE 0.9% INJ 50 ML IV ONE (21:30)
[2017-06-12] VITALS (9 sets, daily range): BP systolic 136–171; BP diastolic 86–102; PULSE 91–123; RESP 14–19; TEMP 97.7–98.7; O2SAT 83–96
[2017-06-12] MEDS: ONDANSETRON HCL 4 MG/2 ML VIAL IV PUSH PRN ×3 (02:42→19:09)
[2017-06-12] MEDS: HYDROmorphone HCL PF 1 MG/ML VIAL IV PUSH PRN ×7 (02:42→22:29)
[2017-06-12] MEDS: PHENOL 1.4% SOLN 180 ML BTL OROPHARYNG PRN (02:47)
[2017-06-12] MEDS: ERYTHROMYCIN EC 250 MG TABEC PO SCH ×3 (05:41→21:01)
[2017-06-12] MEDS: SIMETHICONE 125 MG CHEWABLE TAB PO SCH ×3 (05:41→21:01)
[2017-06-12] MEDS: PILL SPLITTER OTHER PRN ×2 (05:42→09:05)
[2017-06-12 06:28] LABS: BASOPHIL # 0.1 TH/MM3 (0-0.2); BASOPHIL % 0.4 % (0.0-2.0); EOSINOPHIL # 0.2 TH/MM3 (0-0.4); EOSINOPHIL % 0.6 % (0.0-4.0); HEMATOCRIT 34.7 % (35.0-46.0); LYMPH % 7.5 % (9.0-44.0); MEAN CELL VOLUME 90.2 FL (80.0-100.0); MEAN CORPUSCULAR HEMOGLOBIN 30.2 PG (27.0-34.0); MEAN CORPUSCULAR HGB CONC 33.4 % (32.0-36.0); MONO % 12.6 % (0.0-8.0); NEUT % 78.9 % (16.0-70.0); PLATELET COUNT 351 TH/MM3 (150-450); RED BLOOD COUNT 3.84 MIL/MM3 (4.00-5.30); RED CELL DISTRIBUTION WIDTH 14.6 % (11.6-17.2); WHITE BLOOD COUNT 26.6 TH/MM3 (4.0-11.0)
[2017-06-12 06:38] LABS: HEMO FLAGS AUTO DIFF
[2017-06-12 07:05] LABS: BICARBONATE 28.8 MEQ/L (21.0-32.0); POTASSIUM 3.8 MEQ/L (3.5-5.1)
[2017-06-12] MEDS: POLYETHYLENE GLYCOL 17 GM PKG PO SCH (09:00)
[2017-06-12] MEDS: SODIUM CHLORIDE 0.9% FLUSH 10 ML FLUSH IV FLUSH SCH ×3 (09:00→21:09)
[2017-06-12] MEDS: METOPROLOL TARTRATE 100 MG TAB PO SCH (09:00)
[2017-06-12] MEDS: DOCUSATE SODIUM 100 MG CAP PO SCH ×2 (09:05→21:00)
[2017-06-12] MEDS: METOCLOPRAMIDE HCL 10 MG TAB PO SCH ×3 (09:05→18:00)
[2017-06-12] MEDS: BISACODYL EC 5 MG TABEC PO SCH (09:05)
[2017-06-12] MEDS: SPIRONOLACTONE 25 MG TAB PO SCH (09:06)
[2017-06-12] MEDS: SUCRALFATE 1 GM/10 ML CUP PO SCH ×4 (09:06→21:09)
[2017-06-12] MEDS: PANTOPRAZOLE SODIUM 40 MG VIAL IV PUSH SCH ×2 (09:06→20:56)
[2017-06-12 09:13] LABS: BANDS 12 % (0-6); METAMYELOCYTES 3 % (0-1); NEUTROPHIL # MANUAL DIFF 23.1 TH/MM3 (1.8-7.7); PLATELET ESTIMATE SMEAR NORMAL (NORMAL); PLATELET MORPHOLOGY NORMAL (NORMAL); POLYS (SEG NEUTROPHILS) 72 % (16-70); SCAN/DIFF FINAL DIFF MANUAL; WBC DIFF SAMPLE 100
[2017-06-12 09:15] LABS: TOXIC VACUOLATION PRESENT (NONE SEEN)
--- NOTE | 2017-06-12 09:22 | HHI.PR ---
Subjective Remarks trying to eat a little. Objective Vitals heart reg lung diminished bs abd distended. ngt. ext no edema Vital Signs Date Time Temp Pulse Resp B/P (MAP) Pulse Ox O2 Delivery O2 Flow Rate FiO2 06/12/17 04:00 97.7 121 17 136/95 (109) 83 06/12/17 04:00 92 06/12/17 00:00 98.7 103 17 140/92 (108) 96 06/11/17 22:00 100 06/11/17 22:00 98.6 98 17 124/95 (105) 96 06/11/17 20:44 97.5 111 19 136/75 (95) 93 06/11/17 12:00 98.3 103 16 142/85 (104) 91 Result Diagram: 06/12/17 0530 06/12/17 0530 Imaging Last Impressions Abdomen Biopsy CT 06/04/17 0000 Signed Impressions: Service Date/Time: Sunday, June 04, 2017 14:57 - CONCLUSION: Uncomplicated CT guided biopsy of the omentum. Chilango Shaw MD Liver Ultrasound 06/02/17 0000 Signed Impressions: Service Date/Time: Friday, June 02, 2017 23:21 - CONCLUSION: 1. Cirrhosis 2. Possible mass right lobe of the liver. MRI is recommended for further evaluation if clinically indicated. 3. Moderate ascites Mert Paige MD Chest X-Ray 05/31/17 1557 Signed Impressions: Service Date/Time: Wednesday, May 31, 2017 16:05 - CONCLUSION: No acute disease. Ivan Lowe MD Abdomen/Pelvis CT 05/31/17 1403 Signed Impressions: Service Date/Time: Wednesday, May 31, 2017 14:41 - CONCLUSION: Ascites appears complex new from 03/23/17. Other than liver disease I don't see an etiology for such. If paracentesis is contemplated fluid should be sent for cytology. Tom Kellogg MD FACRADDENDUM: The above was reviewed. Of note, the patient is a stable 2 cm lesion in the medial aspect of the right hepatic lobe which shows rim enhancement, most characteristic of a benign hemangioma. Re\re aerating the above, there is stranding in the omentum which appears to be isolated. There is no associated anasarca or fluid in the mesenteric leaves. This appears to be a process isolated to the omentum itself. Although there are no discrete soft tissue lesions, findings could represent an interstitial or lymphatic type neoplastic process. Omental biopsy could be considered for further characterization. Jonathan Adame MD Cyst Biopsy Asp-Paracentesis US 05/31/17 0000 Signed Impressions: Service Date/Time: Wednesday, May 31, 2017 16:43 - CONCLUSION: Uncomplicated ultrasound guided paracentesis. Minimal fluid aspirated. Jonathan Adame MD A/P Problem List: (1) Abdominal pain ICD Codes: R10.9 - Unspecified abdominal pain Status: Acute Plan: - 52 y/o WF with HTN, hyperlipidemia, borderline diabetes and CAD with hx of NSETMI s/p stent to RCA in 2010. - Pt presented to the ED with complaints of worsening abdominal pain and distension. She states that she has been having issues with abd pain for the last 2 months. For the last 2 weeks she has been having increased generalized abd pain and distension which has been significantly worse over the last 2 days. - CT Abd/pelvis revealed ascites appears complex and new from 03/23/17. - She was previously seen in the ED on 03/[address] abd/pelvis at that time noted an 18mm lesion in the right lobe of the liver, with features favoring hemangioma. She was sent for followup as an outpt with GI. She had an MRI Abdomen W/O Contrast (05/13/17) with benign hemangioma in the caudate lobe of the liver corresponding to the lesion identified on CT otherwise normal examination. - Outpt workup with GI in April 2017 revealed positive ASMA, positive RACHELE, and RODRIGUEZ FibroSURE with fibrosis score of 0.04 (No fibrosis), Steatosis score of 0.78/S3 (marked or severe steatosis). Viral Hepatitis was negative. IgG subclasses were WNL, LKM Ab negative, AMA negative, Iron studies WNL, Ferritin 160 (slightly elevated), Ceruloplasmin WNL. Labs on 05/12/17 with AST 54, ALT 81, AlkPhos 92, Tbili 0.8 , DBili 0.2. autoimmune hepatitis was questioned. - - Pt had diagnostic paracentesis on 05/31 with removal of 15cc of fluid - Cell count for the fluid noted WBC count 1657 - Fluid culture with no growth - cytology --> atypical epithelioid cells suspicious for malignancy - Repeat paracentesis 06/04/17 - 3,600ml of ascites removed - Ascitic Cell count: WBC 494, RBC 6525 - Fluid culture shows ngtd - cytology -->suspicious for malignant cells - Pt underwent Omental Biopsy (06/04/17) --> path suspicious for signet cell adenoca -EGD 06/11. antral ulcerated mass with near obstruction of outlet. --pathology: STOMACH, ANTRUM, BIOPSY - POORLY DIFFERENTIATED ADENOCARCINOMA, SIGNET RING CELL TYPE. - SEVERE CHRONIC ACTIVE GASTRITIS WITH INTESTINAL METAPLASIA. - NEGATIVE FOR HELICOBACTER PYLORI (ZIYAD STAIN). - cont ngt for decompression -Picc line placed 06/11 -convert ppn to tpn today -surgery contemplating GJ tube -chemo to begin today 06/12 -dvt prophylaxis -PT. (2) Ascites ICD Codes: R18.8 - Other ascites Status: Acute Plan: - See above (3) Hypertension ICD Codes: I10 - Essential (primary) hypertension Status: Acute Plan: - Home meds resumed - Monitor (4) Hyperlipidemia ICD Codes: E78.5 - Hyperlipidemia, unspecified Status: Acute Plan: - Statin was held as an outpt (5) CAD (coronary artery disease) ICD Codes: I25.10 - Atherosclerotic heart disease of [place] coronary artery without angina pectoris Status: Acute Plan: - Pt with hx of CAD and NSTEMI in 2010 s/p stent in the RCA (6) Tobacco abuse ICD Codes: Z72.0 - Tobacco use Status: Acute Problem Qualifiers (1) Abdominal pain: Qualified Codes: R10.84 - Generalized abdominal pain (2) Ascites: Qualified Codes: R18.8 - Other ascites Zach Briceno MD Jun 12, 2017 09:22
[2017-06-12] MEDS ORDERED: DEXAMETHASONE INJ 20 MG in SODIUM CHLORIDE 0.9% INJ 50 ML IV ONE (09:30)
[2017-06-12] MEDS ORDERED: GRANISETRON HCL 1 MG/ML VIAL IV PUSH ONE (09:30)
--- NOTE | 2017-06-12 11:31 | PD.ONC.PN ---
Subjective Subjective Remarks Afebrile overnight. Patient resting in bed. Having pain with swallowing and mild nausea. Was able to keep some hot tea down this AM. Objective Data Date Time Temp Pulse Resp B/P (MAP) Pulse Ox O2 Delivery O2 Flow Rate FiO2 06/12/17 04:00 97.7 121 17 136/95 (109) 83 06/12/17 04:00 92 06/12/17 00:00 98.7 103 17 140/92 (108) 96 06/11/17 22:00 100 06/11/17 22:00 98.6 98 17 124/95 (105) 96 06/11/17 20:44 97.5 111 19 136/75 (95) 93 06/11/17 12:00 98.3 103 16 142/85 (104) 91 06/12/17 06/12/17 06/12/17 07:00 15:00 23:00 Output Total 400 ml Balance -400 ml Result Diagram: 06/12/17 0530 06/12/17 0530 Laboratory Results Laboratory Tests Test 06/12/17 05:30 White Blood Count 26.6 TH/MM3 Red Blood Count 3.84 MIL/MM3 Hemoglobin 11.6 GM/DL Hematocrit 34.7 % Mean Corpuscular Volume 90.2 FL Mean Corpuscular Hemoglobin 30.2 PG Mean Corpuscular Hemoglobin Concent 33.4 % Red Cell Distribution Width 14.6 % Platelet Count 351 TH/MM3 Mean Platelet Volume 6.9 FL Neutrophils (%) (Auto) 78.9 % Lymphocytes (%) (Auto) 7.5 % Monocytes (%) (Auto) 12.6 % Eosinophils (%) (Auto) 0.6 % Basophils (%) (Auto) 0.4 % Neutrophils # (Auto) 21.0 TH/MM3 Lymphocytes # (Auto) 2.0 TH/MM3 Monocytes # (Auto) 3.4 TH/MM3 Eosinophils # (Auto) 0.2 TH/MM3 Basophils # (Auto) 0.1 TH/MM3 CBC Comment AUTO DIFF Differential Total Cells Counted 100 Neutrophils % (Manual) 72 % Band Neutrophils % 12 % Lymphocytes % 6 % Monocytes % 7 % Neutrophils # (Manual) 23.1 TH/MM3 Metamyelocytes 3 % Differential Comment FINAL DIFF MANUAL Toxic Vacuolation PRESENT Platelet Estimate NORMAL Platelet Morphology Comment NORMAL Blood Urea Nitrogen 14 MG/DL Creatinine 0.53 MG/DL Random Glucose 135 MG/DL Calcium Level 8.9 MG/DL Sodium Level 131 MEQ/L Potassium Level 3.8 MEQ/L Chloride Level 94 MEQ/L Carbon Dioxide Level 28.8 MEQ/L Anion Gap 8 MEQ/L Estimat Glomerular Filtration Rate 121 ML/MIN Administered Medications Medications (Trade) Dose Ordered Sig/Nelda Route PRN Reason Start Time Stop Time Status Last Admin Dose Admin Sodium Chloride (NS Flush) 2 ml BID IV FLUSH 05/31/17 21:00 06/11/17 20:05 Temazepam (Restoril) 15 mg HS PRN PO INSOMNIA 05/31/17 16:00 06/11/17 01:06 Magnesium Hydroxide (Milk Of Magnesia Liq) 30 ml Q12H PRN PO Mild constipation 05/31/17 16:00 06/02/17 02:16 Aspirin (Ecotrin Ec) 81 mg HS PO 05/31/17 21:00 06/11/17 20:09 Metoprolol Tartrate (Lopressor) 100 mg BID PO 05/31/17 21:00 06/12/17 09:00 Lisinopril (Prinivil) 2.5 mg HS PO 05/31/17 21:00 06/11/17 20:08 Miscellaneous (Pill Splitter) 1 ea UNSCH PRN OTHER SEE LABEL COMMENTS 05/31/17 21:00 06/12/17 09:05 Docusate Sodium (Colace) 100 mg BID PO 06/02/17 15:00 06/12/17 09:05 Spironolactone (Aldactone) 25 mg DAILY PO 06/02/17 18:45 06/12/17 09:06 Ondansetron HCl (Zofran Inj) 4 mg Q4H PRN IV PUSH NAUSEA 06/07/17 21:00 06/12/17 09:05 Pantoprazole Sodium (Protonix Inj) 40 mg Q12H IV PUSH 06/08/17 21:00 06/12/17 09:06 Bisacodyl (Dulcolax Ec) 10 mg DAILY PO 06/09/17 09:00 06/12/17 09:05 Simethicone (Phazyme Chew) 125 mg Q8HR PO 06/08/17 14:00 06/12/17 05:41 Sucralfate (Carafate Liq) 1 gm ACHS PO 06/08/17 17:00 06/12/17 09:06 Fat Emulsion Intravenous 250 ml @ 10 mls/hr Q24H IV-CENTRAL 06/10/17 20:00 06/11/17 20:05 Phenol (Chloraseptic [place]) 2 spray Q2H PRN OROPHARYNG throat pain 06/11/17 12:00 06/12/17 02:47 Hydromorphone HCl (Dilaudid Pf Inj) 1 mg Q3H PRN IV PUSH pain 3-10 06/11/17 12:00 06/12/17 09:07 Sodium Chloride (NS Flush) See Protocol DAILY IV FLUSH 06/12/17 09:00 06/12/17 09:07 Heparin Sodium (Porcine) (Heparin Central Flush) See Protocol DAILY IV FLUSH 06/12/17 09:00 06/12/17 09:08 Metoclopramide HCl (Reglan) 5 mg TID PO 06/12/17 09:00 06/12/17 09:05 Erythromycin (Erythromycin Ec) 250 mg Q8HR PO 06/11/17 22:00 06/12/17 05:41 Objective Remarks GENERAL: Chronically ill appearing female lying supine in bed, NGT in place to LIWS with bilious drainage. SKIN: Warm and dry. HEAD: Normocephalic. EYES: No injection or drainage. NECK: Supple, trachea midline. CARDIOVASCULAR: Regular rate and rhythm RESPIRATORY: Breath sounds equal bilaterally. No accessory muscle use. GASTROINTESTINAL: Abdomen distended. EXTREMITIES: No cyanosis MUSCULOSKELETAL: Adequate muscle tone. NEUROLOGICAL: No obvious focal deficit. Awake, alert, and oriented x3. Assessment/Plan Assessment Ms. Vicente is a 52-year-old female with a 2.5 month history of progressive epigastric pain, nausea, vomiting and abdominal distension. She was noted on imaging studies on 06/10/2017 to have omental thickening and ascites. Omental biopsy revealed findings highly concerning for a high-grade adenocarcinoma with signet cell features. An EGD ensued and the EGD revealed an antral mass involving the gastric wall associated with ulceration and thickening. Biopsies of this mass were submitted earlier today. Her major complaints are that of abdominal distension and nausea. There were findings on EGD indicating retention of gastric contents, and antral mass was also identified, biopsy of this lesion revealed poorly differentiated adenocarcinoma. Plan 1. 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 She has bowel obstruction or partial bowel obstruction at the level of the antrum due to the primary tumor as well as involving the small bowel due to peritoneal carcinomatosis. She is presently on TPN and is also has an NG tube in place. She has been recommended initiation of palliative systemic therapy with FOLFOX to help debulk her tumor to relieve some of her gastric symptoms of obstruction. I have requested HER-2/cristina staining on her disease. Should she have HER-2 amplification she she would be a candidate for combination systemic chemotherapy with trastuzumab. 06/12: start FOLFOX-6 chemotherapy. 2. Leukocytosis: watch for fever. obtain blood cultures. start SBP prophylaxis with Bactrim. Attending Statement The exam, history, and the medical decision-making described in the above note were completed with the assistance of the mid-level provider. I reviewed and agree with the findings presented. I attest that I had a [id number] encounter with the patient on the same day, and personally performed and documented my assessment and findings in the medical record. Pt seen and examined. Two chemo certified nurses came in with assistance of out pt charge nurse to help out. Discussed w/ Dr. Briceno, pt metoprolol probably not absorbed, will need to change to IV. IV metroprolol tolerated to control BP. Chemo started. Discussed risk and benefits and toxicity of chemo. Monitor rising WBC, monitor for infection Prophylaxis for SBP. Aline Thao Jun 12, 2017 11:31 Jacqueline Laws MD Jun 12, 2017 19:57
[2017-06-12] MEDS ORDERED: WATE IV ONE ×2 (12:00)
[2017-06-12] MEDS ORDERED: OXALIPLATIN IV ONE ×2 (12:00)
[2017-06-12] MEDS ORDERED: WATER IV ONE ×2 (12:00)
[2017-06-12] MEDS ORDERED: LEUCOVORIN IV ONE ×2 (12:00)
[2017-06-12] MEDS ORDERED: DEXTROSE 5% IV ONE ×4 (12:00)
--- NOTE | 2017-06-12 12:18 | HHI.GIFU ---
Subjective Remarks Pt resting in bed. NGT to LIWS with green bilious output, 100c in 1h per nurse. Unsucessful trial NGT clamped with diet, pt was nauseous. no vomiting. Still no BM but pt refusing miralax. (Migdalia Delaney) Objective Vitals I&O Vital Signs Date Time Temp Pulse Resp B/P (MAP) Pulse Ox O2 Delivery O2 Flow Rate FiO2 06/12/17 04:00 97.7 121 17 136/95 (109) 83 06/12/17 04:00 92 06/12/17 00:00 98.7 103 17 140/92 (108) 96 06/11/17 22:00 100 06/11/17 22:00 98.6 98 17 124/95 (105) 96 06/11/17 20:44 97.5 111 19 136/75 (95) 93 I/O 06/11/17 06/11/17 06/11/17 06/12/17 06/12/17 06/12/17 07:00 15:00 23:00 07:00 15:00 23:00 Intake Total 892 ml 750 ml 1085 ml Output Total 1 ml 125 ml 125 ml 400 ml Balance 891 ml 625 ml 960 ml -400 ml Intake Oral 50 ml IV Total 892 ml 750 ml 1035 ml Output Urine Total 125 ml 125 ml Gastric Drainage Total 1 ml 400 ml # Voids 1 Laboratory Laboratory Tests Test 06/12/17 05:30 White Blood Count 26.6 Red Blood Count 3.84 Hemoglobin 11.6 Hematocrit 34.7 Mean Corpuscular Volume 90.2 Mean Corpuscular Hemoglobin 30.2 Mean Corpuscular Hemoglobin Concent 33.4 Red Cell Distribution Width 14.6 Platelet Count 351 Mean Platelet Volume 6.9 Neutrophils (%) (Auto) 78.9 Lymphocytes (%) (Auto) 7.5 Monocytes (%) (Auto) 12.6 Eosinophils (%) (Auto) 0.6 Basophils (%) (Auto) 0.4 Neutrophils # (Auto) 21.0 Lymphocytes # (Auto) 2.0 Monocytes # (Auto) 3.4 Eosinophils # (Auto) 0.2 Basophils # (Auto) 0.1 CBC Comment AUTO DIFF Differential Total Cells Counted 100 Neutrophils % (Manual) 72 Band Neutrophils % 12 Lymphocytes % 6 Monocytes % 7 Neutrophils # (Manual) 23.1 Metamyelocytes 3 Differential Comment FINAL DIFF MANUAL Toxic Vacuolation PRESENT Platelet Estimate NORMAL Platelet Morphology Comment NORMAL Blood Urea Nitrogen 14 Creatinine 0.53 Random Glucose 135 Calcium Level 8.9 Sodium Level 131 Potassium Level 3.8 Chloride Level 94 Carbon Dioxide Level 28.8 Anion Gap 8 Estimat Glomerular Filtration Rate 121 Date/Time Source Procedure Growth Status 06/01/17 01:35 Blood Peripheral Aerobic Blood Culture - Final NO GROWTH IN 5 DAYS Complete 06/01/17 01:35 Blood Peripheral Anaerobic Blood Culture - Final NO GROWTH IN 5 DAYS Complete 06/04/17 15:22 Fluid Peritoneal Fluid Gram Stain - Final Complete 06/04/17 15:22 Fluid Peritoneal Fluid Body Fluid Culture - Final NO GROWTH IN 72 HRS.--AEROBICALLY OR ... Complete Imaging Last Impressions Chest X-Ray 06/11/17 0000 Signed Impressions: Service Date/Time: Sunday, June 11, 2017 12:17 - CONCLUSION: 1. Interval placement of right-sided PICC line and nasogastric tube. 2. New abnormal opacity in both lung bases left greater than right with small to moderate left effusion. Teddy Perez MD Abdomen/Pelvis CT 06/09/17 0000 Signed Impressions: Service Date/Time: Friday, June 09, 2017 12:50 - CONCLUSION: 1. Diffuse abdominal ascites. With omental thickening. Ascites could either be from cirrhotic changes or peritoneal carcinomatosis. 2. No findings to indicate bowel obstruction. 3. Small bilateral effusions with dependent atelectasis. Xavier Kellogg MD Abdomen X-Ray 06/08/17 0000 Signed Impressions: Service Date/Time: Thursday, June 08, 2017 12:43 - CONCLUSION: No obstruction. Ivan Lowe MD Paracentesis 06/04/17 0000 Signed Impressions: Service Date/Time: Sunday, June 04, 2017 14:57 - CONCLUSION: Uncomplicated CT Guided paracentesis with removal of 3.6 L of fluid. Sample was saved and sent to the lab for evaluation. Chilango Shaw MD Abdomen Biopsy CT 06/04/17 0000 Signed Impressions: Service Date/Time: Sunday, June 04, 2017 14:57 - CONCLUSION: Uncomplicated CT guided biopsy of the omentum. Chilango Shaw MD Liver Ultrasound 06/02/17 0000 Signed Impressions: Service Date/Time: Friday, June 02, 2017 23:21 - CONCLUSION: 1. Cirrhosis 2. Possible mass right lobe of the liver. MRI is recommended for further evaluation if clinically indicated. 3. Moderate ascites Mert Paige MD Cyst Biopsy Asp-Paracentesis US 05/31/17 0000 Signed Impressions: Service Date/Time: Wednesday, May 31, 2017 16:43 - CONCLUSION: Uncomplicated ultrasound guided paracentesis. Minimal fluid aspirated. Jonathan Adame MD Physical Exam HEENT: Normocephalic; atraumatic; no jaundice. NGT to LIWS with green bilious output CHEST: Resp. shallow/even. CARDIAC: RRR ABDOMEN: Firm, distended, diffuse tenderness; bowel sounds present, hypoactive EXTREMITIES: Trace BLE edema SKIN: Normal; no rash; no jaundice. 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 S/P EGD (06/10/17). Omentum biopsy (06/07/17)---> features highly suspicious for signet ring adenocarcinoma. Oncology following. - New onset ascites, spontaneous bacterial peritonitis. S/P US Paracentesis ()---> 15cc. Peritoneal 1657, RBC 349. Fluid cultures no growth in 48 hours. SAAG> 1.1, indicating portal hypertension as the etiology for her ascites. Cytology atypical epithelioid cells are present, suspicious for malignancy. SAAG suggests portal htn, but recently had fibrosis score of 0.04 on RODRIGUEZ fibrosure. Liver US (06/02/17)--> Cirrhosis, possible mass right lobe of the liver. MRI is recommended for further evaluation if clinically indicated, moderate ascites. Tumor Markers - Ca 125 172.6, Ca 19-9 17.5, Ca15-3 24.2, CEA 0.8, AFP 1.2. Suspect malignant ascites. S/P Repeat CT guided Paracentesis (06/04), cx no growth 72 hours. S/P Omental biopsy (06/07/17), pathology with features highly suspicious for signet ring adenocarcinoma. Spironolactone - Abdominal pain, nausea, distention, constipation. CT scan abdomen and pelvis ( 05/31/17)---> Ascites appears complex new from 03/23/17. Other than liver disease I don't see an etiology for such. If paracentesis is contemplated fluid should be sent for cytology. ADDENDUM: The above was reviewed. Of note, the patient is a stable 2 cm lesion in the medial aspect of the right hepatic lobe which shows rim enhancement, most characteristic of a benign hemangioma. Re\re aerating the above, there is stranding in the omentum which appears to be isolated. There is no associated anasarca or fluid in the mesenteric leaves. This appears to be a process isolated to the omentum itself. Although there are no discrete soft tissue lesions, findings could represent an interstitial or lymphatic type neoplastic process. Omental biopsy could be considered for further characterization. S/P CT guided biopsy of the omentum (06/04/17) suspicious for signet ring adenocarcinoma. S/P Relistor 06/08, no results. CT abdomen and pelvis without iv contrast (06/09/17)---> Diffuse abdominal ascites. With omental thickening. Ascites could either be from cirrhotic changes or peritoneal carcinomatosis, no findings to indicate bowel obstruction, small bilateral effusions with dependent atelectasis. NGT was placed during EGD. by IR. ? Dysmotility. ? SBFT - Malnutrition. Started on PPN, [facility] access team following for PICC. - Severe GERD. PPI. Carafate - Liver mass, liver US as above, with elevated Ca 125 at 172.6, cytology from paracentesis suspicious for malignancy. Omentum bx suspicious for signet cell adenocarcinoma. EGD with abnormal antrum, suggestive fo cancer. Pathology from EGD pending. - ? Portal hypertension. CT with small liver, SAAG > 1.1, indicating portal hypertension, mild coagulopathy, and hypoalbuminemia. S/P Outpatient workup April of 2017- ASMA (+), RACHELE (+), RODRIGUEZ Fibrosure with fibrosis score of 0.04, steatosis score of 0.78/S3 (marked or severe steatosis). Viral hepatitis was negative. IgG subclasses unremarkable. AMA negative. Iron studies unremarkable, Ceruloplasmin unremarkable. Pt with portal htn, although fibrosis score of 0.04 in Apr. - (+) RACHELE. Titer 1:640. Actin IgG ab 36 H. - Leukocytosis. WBC 18.8. BCx no growth 5 day. Peritoneal fluid no growth 72 hours. 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 pt still distended, no BM, refusing miralax. per GS trial NGT clamped and pureed diet, pt did not tolerate. NGT back to suction with 100cc output in 1hour per RN. GS considering GJ PLAN - continue EES - continue reglan - consider GJ - NGT to LIWS - PPN/TPN - Protonix/Carafate - Spironolactone - Further recommendations to follow after seen and examined by Dr. Davison (Migdalia Delaney) Physician Comments Patient seen and examined Agree with above Continue with current supportive care Monitor labs (Jefry Davison MD) Migdalia Delaney Jun 12, 2017 12:18 Jefry Davison MD Jun 12, 2017 20:32
--- NOTE | 2017-06-12 12:57 | HHI.PR ---
Subjective Subjective Notes C/o abdominal pain, worse when NGT clamped. Chemotherapy initiated today. Objective Vitals/I&O Vital Signs Date Time Temp Pulse Resp B/P (MAP) Pulse Ox O2 Delivery O2 Flow Rate FiO2 06/12/17 04:00 97.7 121 17 136/95 (109) 83 Labs Laboratory Tests Test 06/12/17 05:30 White Blood Count 26.6 Red Blood Count 3.84 Hemoglobin 11.6 Hematocrit 34.7 Mean Corpuscular Volume 90.2 Mean Corpuscular Hemoglobin 30.2 Mean Corpuscular Hemoglobin Concent 33.4 Red Cell Distribution Width 14.6 Platelet Count 351 Mean Platelet Volume 6.9 Neutrophils (%) (Auto) 78.9 Lymphocytes (%) (Auto) 7.5 Monocytes (%) (Auto) 12.6 Eosinophils (%) (Auto) 0.6 Basophils (%) (Auto) 0.4 Neutrophils # (Auto) 21.0 Lymphocytes # (Auto) 2.0 Monocytes # (Auto) 3.4 Eosinophils # (Auto) 0.2 Basophils # (Auto) 0.1 CBC Comment AUTO DIFF Differential Total Cells Counted 100 Neutrophils % (Manual) 72 Band Neutrophils % 12 Lymphocytes % 6 Monocytes % 7 Neutrophils # (Manual) 23.1 Metamyelocytes 3 Differential Comment FINAL DIFF MANUAL Toxic Vacuolation PRESENT Platelet Estimate NORMAL Platelet Morphology Comment NORMAL Blood Urea Nitrogen 14 Creatinine 0.53 Random Glucose 135 Calcium Level 8.9 Sodium Level 131 Potassium Level 3.8 Chloride Level 94 Carbon Dioxide Level 28.8 Anion Gap 8 Estimat Glomerular Filtration Rate 121 Date/Time Source Procedure Growth Status 06/01/17 01:35 Blood Peripheral Aerobic Blood Culture - Final NO GROWTH IN 5 DAYS Complete 06/01/17 01:35 Blood Peripheral Anaerobic Blood Culture - Final NO GROWTH IN 5 DAYS Complete 06/04/17 15:22 Fluid Peritoneal Fluid Gram Stain - Final Complete 06/04/17 15:22 Fluid Peritoneal Fluid Body Fluid Culture - Final NO GROWTH IN 72 HRS.--AEROBICALLY OR ... Complete Radiology Last Impressions Abdomen/Pelvis CT 06/05/17 0000 Signed Impressions: Service Date/Time: SaturJune 05, 2017 20:16 - CONCLUSION: 1. No acute change is identified to explain the diffuse abdominal pain. However, there is persistent fluid within the abdomen and pelvis along with thickening of the omentum and mild enhancement/thickening of the peritoneal lining. The volume of free fluid in the abdomen and pelvis has slightly increased compared to yesterday's CT performed following paracentesis. 2. Small bilateral pleural effusions, left larger than right. The left pleural effusion has slightly increased in volume since yesterday's CT. There is associated compressive atelectasis in the lower lobes. 3. Stable 2.1 cm right lobe liver lesion. Although incompletely characterized imaging features favor a hemangioma. Chilango Shaw MD Paracentesis 06/04/17 0000 Signed Impressions: Service Date/Time: Sunday, June 04, 2017 14:57 - CONCLUSION: Uncomplicated CT Guided paracentesis with removal of 3.6 L of fluid. Sample was saved and sent to the lab for evaluation. Chilango Shaw MD Abdomen Biopsy CT 06/04/17 0000 Signed Impressions: Service Date/Time: Sunday, June 04, 2017 14:57 - CONCLUSION: Uncomplicated CT guided biopsy of the omentum. Chilango Shaw MD Liver Ultrasound 06/02/17 0000 Signed Impressions: Service Date/Time: Friday, June 02, 2017 23:21 - CONCLUSION: 1. Cirrhosis 2. Possible mass right lobe of the liver. MRI is recommended for further evaluation if clinically indicated. 3. Moderate ascites Mert Paige MD Chest X-Ray 05/31/17 1557 Signed Impressions: Service Date/Time: Wednesday, May 31, 2017 16:05 - CONCLUSION: No acute disease. Ivan Lowe MD Cyst Biopsy Asp-Paracentesis US 05/31/17 0000 Signed Impressions: Service Date/Time: Wednesday, May 31, 2017 16:43 - CONCLUSION: Uncomplicated ultrasound guided paracentesis. Minimal fluid aspirated. Jonathan Adame MD Last Impressions Chest X-Ray 05/31/17 1557 Signed Impressions: Service Date/Time: Wednesday, May 31, 2017 16:05 - CONCLUSION: No acute disease. Ivan Lowe MD Abdomen/Pelvis CT 05/31/17 1403 Signed Impressions: Service Date/Time: Wednesday, May 31, 2017 14:41 - CONCLUSION: Ascites appears complex new from 03/23/17. Other than liver disease I don't see an etiology for such. If paracentesis is contemplated fluid should be sent for cytology. Tom Kellogg MD FACR Cyst Biopsy Asp-Paracentesis US 05/31/17 0000 Signed Impressions: Service Date/Time: Wednesday, May 31, 2017 16:43 - CONCLUSION: Uncomplicated ultrasound guided paracentesis. Minimal fluid aspirated. Jonathan Adame MD Narrative Exam NAD Abd: significantly distended, tense, moderate diffuse ttp. NG with slightly bilious output 400cc since yesterday (she is having sips of clears) A/P Assessment and Plan 52 yo F with stage 4 gastric adenocarcinoma, with antral mass which is narrowing gastric outlet, malignant ascites, likely omental caking. Failed trial of clamping NGT. She is quite distended. I am wary of her prospects of healing from G/J tube placement. For now continue NGT to suction. She is undergoing initial round of chemotherapy. Scooby Yoo MD Jun 12, 2017 12:57
[2017-06-12] MEDS ORDERED: SODIUM CHLORID 0.9% 500 ML INJ 500 ML IV ONE (13:45)
[2017-06-12] MEDS ORDERED: FLUOROURACIL 500 MG/10 ML VIAL IV PUSH ONE (14:00)
[2017-06-12] MEDS ORDERED: HEPARIN IV ONE (14:30)
[2017-06-12] MEDS ORDERED: FLUOROURACIL IV ONE (14:30)
[2017-06-12] MEDS ORDERED: SODIUM CHLORIDE 0.9% IV ONE (14:30)
[2017-06-12] MEDS ORDERED: METOPROLOL TARTRATE 5 MG/5 ML VIAL IV PUSH ONE ×2 (15:00→15:45)
--- NOTE | 2017-06-12 15:23 | RADRPT ---
EXAM DATE/TIME: 06/12/2017 14:04 [facility] COMPARISON: No previous studies available for comparison. INDICATIONS : Bilateral leg swelling. MEDICAL HISTORY : Myocardial infarction. Hypercholesterolemia. Hypertension. Coronary artery disease. Anticoagulant the rapy. Diabetes. Measles. SURGICAL HISTORY : section. Coronary artery stent. ENCOUNTER: Initial ACUITY: 1 day PAIN SCORE: 2/10 LOCATION: Bilateral legs. TECHNIQUE: Venous ultrasound of the left and right leg was performed from the inguinal ligament to the proximal calf. Real-time, color Doppler and spectral tracing, compression and augmentation techniques were us ed. FINDINGS: RIGHT LEG: There is normal compressibility of the deep venous system from the inguinal region to the proximal ca lf. No echogenic clot is seen in the lumen of the common femoral, femoral, popliteal, and posterior tibial veins. There is a normal response of the venous system to proximal and distal augmentation an d respiration. LEFT LEG: There is normal compressibility of the deep venous system from the inguinal region to the proximal ca lf. No echogenic clot is seen in the lumen of the common femoral, femoral, popliteal, and posterior tibial veins. There is a normal response of the venous system to proximal and distal augmentation an d respiration. CONCLUSION: Normal examination. Ron Kim MD on June 12, 2017 at 15:21 Board Certified Radiologist. This report was verified electronically.
[2017-06-12] MEDS ORDERED: LORazepam 2 MG/ML VIAL IV PUSH ONE (15:45)
[2017-06-12] MEDS: FAT EMULSION 20% INJ 250 ML (@10 mls/hr) IV-CENTRAL SCH (20:59)
[2017-06-12] MEDS: CLINIMIX E 5/25 2000 mL- >42 mls/hr IV-CENTRAL SCH ×3 (20:59)
[2017-06-12] MEDS: SULFAMETHOXAZOLE-TRIMETHOPRIM DS 800-160 MG TAB PO SCH (21:00)
[2017-06-12] MEDS: ASPIRIN EC 81 MG TABEC PO SCH (21:00)
[2017-06-12] MEDS: LISINOPRIL 5 MG TAB PO SCH (21:09)
[2017-06-13] VITALS (21 sets, daily range): BP systolic 122–162; BP diastolic 86–99; PULSE 113–143; RESP 15–20; TEMP 97.7–99; O2SAT 93–96
[2017-06-13] MEDS: HYDROmorphone HCL PF 1 MG/ML VIAL IV PUSH PRN ×6 (03:50→21:29)
[2017-06-13] MEDS: ONDANSETRON HCL 4 MG/2 ML VIAL IV PUSH PRN ×4 (03:50→18:21)
[2017-06-13] MEDS: ERYTHROMYCIN EC 250 MG TABEC PO SCH (05:15)
[2017-06-13] MEDS: SIMETHICONE 125 MG CHEWABLE TAB PO SCH ×2 (05:15→05:51)
[2017-06-13 05:54] LABS: AUTOMATED NEUTROPHIL # 23.7 TH/MM3 (1.8-7.7); BASOPHIL # 0.2 TH/MM3 (0-0.2); BASOPHIL % 0.6 % (0.0-2.0); HEMATOCRIT 32.2 % (35.0-46.0); LYMPH % 4.4 % (9.0-44.0); LYMPHOCYTE # 1.2 TH/MM3 (1.0-4.8); MEAN CELL VOLUME 89.8 FL (80.0-100.0); MEAN CORPUSCULAR HEMOGLOBIN 29.6 PG (27.0-34.0); MEAN CORPUSCULAR HGB CONC 32.9 % (32.0-36.0); MONO % 9.7 % (0.0-8.0); NEUT % 85.3 % (16.0-70.0); PLATELET COUNT 301 TH/MM3 (150-450); RED BLOOD COUNT 3.58 MIL/MM3 (4.00-5.30); RED CELL DISTRIBUTION WIDTH 14.1 % (11.6-17.2); WHITE BLOOD COUNT 27.8 TH/MM3 (4.0-11.0)
[2017-06-13 06:14] LABS: ALKALINE PHOSPHATASE 69 U/L (45-117); ALT (GPT) 13 U/L (10-53); ANION GAP 6 MEQ/L (5-15); AST (GOT) 18 U/L (15-37); BICARBONATE 30.8 MEQ/L (21.0-32.0); BLOOD UREA NITROGEN 11 MG/DL (7-18); CHLORIDE 94 MEQ/L (98-107); GLOMERULAR FILTRATION RATE 133 ML/MIN (>89); HEMO FLAGS AUTO DIFF; POTASSIUM 3.5 MEQ/L (3.5-5.1); SODIUM (NA) 131 MEQ/L (136-145); TOTAL BILIRUBIN ADULT 0.3 MG/DL (0.2-1.0)
[2017-06-13] MEDS: PANTOPRAZOLE SODIUM 40 MG VIAL IV PUSH SCH ×2 (07:29→20:57)
[2017-06-13] MEDS: SUCRALFATE 1 GM/10 ML CUP PO SCH (07:33)
[2017-06-13] MEDS ORDERED: FUROSEMIDE 20 MG/2 ML VIAL IV PUSH ONE (08:15)
--- NOTE | 2017-06-13 08:19 | HHI.PR ---
Subjective Remarks unable to take po including po meds no flatus or bm feels swollen and has gained 7 pounds Objective Vitals oriented no labored breathing heart reg lung diminished bases ngt liws abd minimal bs/distended ext swelling noted picc line Vital Signs Date Time Temp Pulse Resp B/P (MAP) Pulse Ox O2 Delivery O2 Flow Rate FiO2 06/13/17 07:49 97.7 122 20 147/99 (115) 95 06/13/17 04:00 99.0 113 16 159/87 (111) 96 06/13/17 00:00 97.7 118 15 156/97 (116) 94 06/12/17 22:13 92 06/12/17 20:00 117 06/12/17 20:00 98.6 122 19 168/99 (122) 92 06/12/17 17:15 98.0 123 18 165/86 (112) 92 06/12/17 15:26 116 14 169/102 (124) 95 06/12/17 15:10 91 14 171/99 (123) 91 06/12/17 14:41 98.0 123 15 165/96 (119) 92 06/12/17 13:02 92 21 Result Diagram: 06/13/17 0500 06/13/17 0500 Imaging Last Impressions Abdomen Biopsy CT 06/04/17 0000 Signed Impressions: Service Date/Time: Sunday, June 04, 2017 14:57 - CONCLUSION: Uncomplicated CT guided biopsy of the omentum. Chilango Shaw MD Liver Ultrasound 06/02/17 0000 Signed Impressions: Service Date/Time: Friday, June 02, 2017 23:21 - CONCLUSION: 1. Cirrhosis 2. Possible mass right lobe of the liver. MRI is recommended for further evaluation if clinically indicated. 3. Moderate ascites Mert Paige MD Chest X-Ray 05/31/17 1557 Signed Impressions: Service Date/Time: Wednesday, May 31, 2017 16:05 - CONCLUSION: No acute disease. Ivan Lowe MD Abdomen/Pelvis CT 05/31/17 1403 Signed Impressions: Service Date/Time: Wednesday, May 31, 2017 14:41 - CONCLUSION: Ascites appears complex new from 03/23/17. Other than liver disease I don't see an etiology for such. If paracentesis is contemplated fluid should be sent for cytology. Tom Kellogg MD FACRADDENDU: The above was reviewed. Of note, the patient is a stable 2 cm lesion in the medial aspect of the right hepatic lobe which shows rim enhancement, most characteristic of a benign hemangioma. Re\re aerating the above, there is stranding in the omentum which appears to be isolated. There is no associated anasarca or fluid in the mesenteric leaves. This appears to be a process isolated to the omentum itself. Although there are no discrete soft tissue lesions, findings could represent an interstitial or lymphatic type neoplastic process. Omental biopsy could be considered for further characterization. Jonathan Adame MD Cyst Biopsy Asp-Paracentesis US 05/31/17 0000 Signed Impressions: Service Date/Time: Wednesday, May 31, 2017 16:43 - CONCLUSION: Uncomplicated ultrasound guided paracentesis. Minimal fluid aspirated. Jonathan Adame MD A/P Problem List: (1) Abdominal pain ICD Codes: R10.9 - Unspecified abdominal pain Status: Acute Plan: - 52 y/o WF with HTN, hyperlipidemia, borderline diabetes and CAD with hx of NSETMI s/p stent to RCA in 2010. - Pt presented to the ED with complaints of worsening abdominal pain and distension. She states that she has been having issues with abd pain for the last 2 months. For the last 2 weeks she has been having increased generalized abd pain and distension which has been significantly worse over the last 2 days. - CT Abd/pelvis revealed ascites appears complex and new from 03/23/17. - She was previously seen in the ED on 03/[address] abd/pelvis at that time noted an 18mm lesion in the right lobe of the liver, with features favoring hemangioma. She was sent for followup as an outpt with GI. She had an MRI Abdomen W/O Contrast (05/13/17) with benign hemangioma in the caudate lobe of the liver corresponding to the lesion identified on CT otherwise normal examination. - Outpt workup with GI in April 2017 revealed positive ASMA, positive RACHELE, and RODRIGUEZ FibroSURE with fibrosis score of 0.04 (No fibrosis), Steatosis score of 0.78/S3 (marked or severe steatosis). Viral Hepatitis was negative. IgG subclasses were WNL, LKM Ab negative, AMA negative, Iron studies WNL, Ferritin 160 (slightly elevated), Ceruloplasmin WNL. Labs on 05/12/17 with AST 54, ALT 81, AlkPhos 92, Tbili 0.8 , DBili 0.2. autoimmune hepatitis was questioned. - - Pt had diagnostic paracentesis on 05/31 with removal of 15cc of fluid - Cell count for the fluid noted WBC count 1657 - Fluid culture with no growth - cytology --> atypical epithelioid cells suspicious for malignancy - Repeat paracentesis 06/04/17 - 3,600ml of ascites removed - Ascitic Cell count: WBC 494, RBC 6525 - Fluid culture shows ngtd - cytology -->suspicious for malignant cells - Pt underwent Omental Biopsy (06/04/17) --> path suspicious for signet cell adenoca -EGD 06/11. antral ulcerated mass with near obstruction of outlet. --pathology: STOMACH, ANTRUM, BIOPSY - POORLY DIFFERENTIATED ADENOCARCINOMA, SIGNET RING CELL TYPE. - SEVERE CHRONIC ACTIVE GASTRITIS WITH INTESTINAL METAPLASIA. - NEGATIVE FOR HELICOBACTER PYLORI (ZIYAD STAIN). - cont ngt for decompression -Picc line placed 06/11 -continue tpn support. adjust as needed -following daily labs -surgery contemplating GJ tube -chemo initiated on 06/12 -dvt prophylaxis. add lovenox -convert po meds to iv. lasix added and will increase as tolerated/needed. -PT. (2) Ascites ICD Codes: R18.8 - Other ascites Status: Acute Plan: - See above (3) Hypertension ICD Codes: I10 - Essential (primary) hypertension Status: Acute Plan: - Home meds resumed - Monitor (4) Hyperlipidemia ICD Codes: E78.5 - Hyperlipidemia, unspecified Status: Acute Plan: - Statin was held as an outpt (5) CAD (coronary artery disease) ICD Codes: I25.10 - Atherosclerotic heart disease of [place] coronary artery without angina pectoris Status: Acute Plan: - Pt with hx of CAD and NSTEMI in 2010 s/p stent in the RCA (6) Tobacco abuse ICD Codes: Z72.0 - Tobacco use Status: Acute Problem Qualifiers (1) Abdominal pain: Qualified Codes: R10.84 - Generalized abdominal pain (2) Ascites: Qualified Codes: R18.8 - Other ascites Zach Briceno MD Jun 13, 2017 08:19
[2017-06-13] MEDS ORDERED: GLUCAGON 1 MG/ML VIAL OTHER PRN (08:30)
[2017-06-13] MEDS ORDERED: DEXTROSE 50% IN WATER 50 ML VIAL(D50) IV PUSH PRN (08:30)
[2017-06-13] MEDS ORDERED: ENALAPRILAT 1.25 MG/ML VIAL IV PUSH PRN (08:30)
[2017-06-13] MEDS: SODIUM CHLORIDE 0.9% FLUSH 10 ML FLUSH IV FLUSH SCH ×3 (09:00→19:34)
[2017-06-13] MEDS: SULFAMETHOXAZOLE-TRIMETHOPRIM DS 800-160 MG TAB PO SCH (09:00)
[2017-06-13 09:04] LABS: BANDS 19 % (0-6); METAMYELOCYTES 2 % (0-1); POLYS (SEG NEUTROPHILS) 69 % (16-70); WBC DIFF SAMPLE 100
[2017-06-13 09:05] LABS: PLATELET ESTIMATE SMEAR NORMAL (NORMAL); PLATELET MORPHOLOGY NORMAL (NORMAL); SCAN/DIFF FINAL DIFF MANUAL
[2017-06-13] MEDS: METOPROLOL TARTRATE 5 MG/5 ML VIAL IV PUSH SCH ×3 (09:45→20:51)
[2017-06-13] MEDS: ENOXAPARIN SODIUM 40 MG/0.4 ML SYRINGE SQ SCH (09:45)
--- NOTE | 2017-06-13 10:12 | PD.ONC.PN ---
Subjective Subjective Remarks Afebrile overnight. Patient feeling very bloated today and fatigued. Tired of being attached to so many different lines. Not able to swallow pills. Objective Data Date Time Temp Pulse Resp B/P (MAP) Pulse Ox O2 Delivery O2 Flow Rate FiO2 06/13/17 07:49 97.7 122 20 147/99 (115) 95 06/13/17 04:00 99.0 113 16 159/87 (111) 96 06/13/17 00:00 97.7 118 15 156/97 (116) 94 06/12/17 22:13 92 06/12/17 20:00 117 06/12/17 20:00 98.6 122 19 168/99 (122) 92 06/12/17 17:15 98.0 123 18 165/86 (112) 92 06/12/17 15:26 116 14 169/102 (124) 95 06/12/17 15:10 91 14 171/99 (123) 91 06/12/17 14:41 98.0 123 15 165/96 (119) 92 06/12/17 13:02 92 21 Result Diagram: 06/13/17 0500 06/13/17 0500 Laboratory Results Laboratory Tests Test 06/13/17 05:00 White Blood Count 27.8 TH/MM3 Red Blood Count 3.58 MIL/MM3 Hemoglobin 10.6 GM/DL Hematocrit 32.2 % Mean Corpuscular Volume 89.8 FL Mean Corpuscular Hemoglobin 29.6 PG Mean Corpuscular Hemoglobin Concent 32.9 % Red Cell Distribution Width 14.1 % Platelet Count 301 TH/MM3 Mean Platelet Volume 7.3 FL Neutrophils (%) (Auto) 85.3 % Lymphocytes (%) (Auto) 4.4 % Monocytes (%) (Auto) 9.7 % Eosinophils (%) (Auto) 0.0 % Basophils (%) (Auto) 0.6 % Neutrophils # (Auto) 23.7 TH/MM3 Lymphocytes # (Auto) 1.2 TH/MM3 Monocytes # (Auto) 2.7 TH/MM3 Eosinophils # (Auto) 0.0 TH/MM3 Basophils # (Auto) 0.2 TH/MM3 CBC Comment AUTO DIFF Differential Total Cells Counted 100 Neutrophils % (Manual) 69 % Band Neutrophils % 19 % Lymphocytes % 4 % Monocytes % 6 % Neutrophils # (Manual) 25.0 TH/MM3 Metamyelocytes 2 % Differential Comment FINAL DIFF MANUAL Platelet Estimate NORMAL Platelet Morphology Comment NORMAL Red Cell Morphology Comment NORMAL Blood Urea Nitrogen 11 MG/DL Creatinine 0.49 MG/DL Random Glucose 242 MG/DL Total Protein 6.5 GM/DL Albumin 2.4 GM/DL Calcium Level 8.3 MG/DL Alkaline Phosphatase 69 U/L Aspartate Amino Transf (AST/SGOT) 18 U/L Alanine Aminotransferase (ALT/SGPT) 13 U/L Total Bilirubin 0.3 MG/DL Sodium Level 131 MEQ/L Potassium Level 3.5 MEQ/L Chloride Level 94 MEQ/L Carbon Dioxide Level 30.8 MEQ/L Anion Gap 6 MEQ/L Estimat Glomerular Filtration Rate 133 ML/MIN Culture Results Microbiology Date/Time Source Procedure Growth Status 06/12/17 12:59 Blood Peripheral Aerobic Blood Culture Pending Received 06/12/17 12:59 Blood Peripheral Anaerobic Blood Culture Pending Received 06/12/17 12:56 Blood Peripheral Aerobic Blood Culture Pending Received 06/12/17 12:56 Blood Peripheral Anaerobic Blood Culture Pending Received Administered Medications Medications (Trade) Dose Ordered Sig/Nelda Route PRN Reason Start Time Stop Time Status Last Admin Dose Admin Sodium Chloride (NS Flush) 2 ml BID IV FLUSH 05/31/17 21:00 06/13/17 09:53 Aspirin (Ecotrin Ec) 81 mg HS PO 05/31/17 21:00 06/12/17 21:00 Miscellaneous (Pill Splitter) 1 ea UNSCH PRN OTHER SEE LABEL COMMENTS 05/31/17 21:00 06/12/17 09:05 Ondansetron HCl (Zofran Inj) 4 mg Q4H PRN IV PUSH NAUSEA 06/07/17 21:00 06/13/17 07:20 Pantoprazole Sodium (Protonix Inj) 40 mg Q12H IV PUSH 06/08/17 21:00 06/13/17 07:29 Fat Emulsion Intravenous 250 ml @ 10 mls/hr Q24H IV-CENTRAL 06/10/17 20:00 06/12/17 20:59 Phenol (Chloraseptic Jordan) 2 spray Q2H PRN OROPHARYNG throat pain 06/11/17 12:00 06/12/17 02:47 Hydromorphone HCl (Dilaudid Pf Inj) 1 mg Q3H PRN IV PUSH pain 3-10 06/11/17 12:00 06/13/17 07:21 Sodium Chloride (NS Flush) See Protocol DAILY IV FLUSH 06/12/17 09:00 06/12/17 09:07 Heparin Sodium (Porcine) (Heparin Central Flush) See Protocol DAILY IV FLUSH 06/12/17 09:00 06/12/17 09:08 Fluorouracil 4560 mg/Heparin Sodium (Porcine) 5750 units/Sodium Chloride 92 ml @ 2 mls/hr ONCE ONCE IV 06/12/17 14:30 06/14/17 12:29 06/12/17 22:23 Multivitamins 10 ml/Folic Acid 1 mg/Amino Acids/ Electrolytes/ Dextrose 2,010.2 ml @ 75 mls/hr Q24H IV-CENTRAL 06/12/17 20:00 06/12/17 20:59 Trimethoprim/ Sulfamethoxazole (Bactrim Ds 800-160 Mg) 1 tab Q12HR PO 06/12/17 21:00 06/12/17 21:00 Metoprolol Tartrate (Lopressor Inj) 2.5 mg Q6H IV PUSH 06/13/17 08:15 06/13/17 09:45 Enoxaparin Sodium (Lovenox Inj) 40 mg Q24H SQ 06/13/17 08:15 06/13/17 09:45 Objective Remarks GENERAL: Chronically ill appearing female supine in bed, appears fatigued SKIN: Warm and dry. HEAD: Normocephalic. NGT to LIWS EYES: No injection or drainage. NECK: Supple, trachea midline. CARDIOVASCULAR: Regular rate and rhythm RESPIRATORY: Breath sounds equal bilaterally. No accessory muscle use. GASTROINTESTINAL: Abdomen distended. EXTREMITIES: No cyanosis. +edema all extremities. MUSCULOSKELETAL: Adequate muscle tone. NEUROLOGICAL: awake and alert, normal speech. Assessment/Plan Assessment Ms. Vicente is a 52-year-old female with a 2.5 month history of progressive epigastric pain, nausea, vomiting and abdominal distension. She was noted on imaging studies on 06/10/2017 to have omental thickening and ascites. Omental biopsy revealed findings highly concerning for a high-grade adenocarcinoma with signet cell features. An EGD ensued and the EGD revealed an antral mass involving the gastric wall associated with ulceration and thickening. Biopsies of this mass were submitted earlier today. Her major complaints are that of abdominal distension and nausea. There were findings on EGD indicating retention of gastric contents, and antral mass was also identified, biopsy of this lesion revealed poorly differentiated adenocarcinoma. Plan 1. 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 She has bowel obstruction or partial bowel obstruction at the level of the antrum due to the primary tumor as well as involving the small bowel due to peritoneal carcinomatosis. She is presently on TPN and is also has an NG tube in place. She has been recommended initiation of palliative systemic therapy with FOLFOX to help debulk her tumor to relieve some of her gastric symptoms of obstruction. I have requested HER-2/cristina staining on her disease. Should she have HER-2 amplification she she would be a candidate for combination systemic chemotherapy with trastuzumab. 06/13: continue 5-FU infusion. d/w Dr. Hernández who plans to start her on diuretics for edema. 2. Leukocytosis: await blood cultures. will change Bactrim to IV Cipro Attending Statement The exam, history, and the medical decision-making described in the above note were completed with the assistance of the mid-level provider. I reviewed and agree with the findings presented. I attest that I had a [id number] encounter with the patient on the same day, and personally performed and documented my assessment and findings in the medical record. Pt seen and examined. Tolerating infusional 5FU, nausea better controlled. Still tachycardic, noted more LE edema, diuretic ordered. Continue lorazepam prn nausea / anxiety. Abd still tight, no change, no cold neuropathy- avoiding cold. Aline Thao Jun 13, 2017 10:12 Jacqueline Laws MD Jun 13, 2017 14:39
--- NOTE | 2017-06-13 13:42 | HHI.PR ---
Subjective Subjective Notes Abdomen feels about the same to her, moderately painful and distended. No bowel movt. Objective Vitals/I&O Vital Signs Date Time Temp Pulse Resp B/P (MAP) Pulse Ox O2 Delivery O2 Flow Rate FiO2 06/13/17 08:00 122 06/13/17 07:49 97.7 20 147/99 (115) 95 06/12/17 13:02 21 Labs Laboratory Tests Test 06/13/17 05:00 White Blood Count 27.8 Red Blood Count 3.58 Hemoglobin 10.6 Hematocrit 32.2 Mean Corpuscular Volume 89.8 Mean Corpuscular Hemoglobin 29.6 Mean Corpuscular Hemoglobin Concent 32.9 Red Cell Distribution Width 14.1 Platelet Count 301 Mean Platelet Volume 7.3 Neutrophils (%) (Auto) 85.3 Lymphocytes (%) (Auto) 4.4 Monocytes (%) (Auto) 9.7 Eosinophils (%) (Auto) 0.0 Basophils (%) (Auto) 0.6 Neutrophils # (Auto) 23.7 Lymphocytes # (Auto) 1.2 Monocytes # (Auto) 2.7 Eosinophils # (Auto) 0.0 Basophils # (Auto) 0.2 CBC Comment AUTO DIFF Differential Total Cells Counted 100 Neutrophils % (Manual) 69 Band Neutrophils % 19 Lymphocytes % 4 Monocytes % 6 Neutrophils # (Manual) 25.0 Metamyelocytes 2 Differential Comment FINAL DIFF MANUAL Platelet Estimate NORMAL Platelet Morphology Comment NORMAL Red Cell Morphology Comment NORMAL Blood Urea Nitrogen 11 Creatinine 0.49 Random Glucose 242 Total Protein 6.5 Albumin 2.4 Calcium Level 8.3 Alkaline Phosphatase 69 Aspartate Amino Transf (AST/SGOT) 18 Alanine Aminotransferase (ALT/SGPT) 13 Total Bilirubin 0.3 Sodium Level 131 Potassium Level 3.5 Chloride Level 94 Carbon Dioxide Level 30.8 Anion Gap 6 Estimat Glomerular Filtration Rate 133 Date/Time Source Procedure Growth Status 06/12/17 12:59 Blood Peripheral Aerobic Blood Culture - Preliminary NO GROWTH IN 1 DAY Resulted 06/12/17 12:59 Blood Peripheral Anaerobic Blood Culture - Preliminary NO GROWTH IN 1 DAY Resulted 06/04/17 15:22 Fluid Peritoneal Fluid Gram Stain - Final Complete 06/04/17 15:22 Fluid Peritoneal Fluid Body Fluid Culture - Final NO GROWTH IN 72 HRS.--AEROBICALLY OR ... Complete Radiology Last Impressions Abdomen/Pelvis CT 06/05/17 0000 Signed Impressions: Service Date/Time: Monday, June 05, 2017 20:16 - CONCLUSION: 1. No acute change is identified to explain the diffuse abdominal pain. However, there is persistent fluid within the abdomen and pelvis along with thickening of the omentum and mild enhancement/thickening of the peritoneal lining. The volume of free fluid in the abdomen and pelvis has slightly increased compared to yesterday's CT performed following paracentesis. 2. Small bilateral pleural effusions, left larger than right. The left pleural effusion has slightly increased in volume since yesterday's CT. There is associated compressive atelectasis in the lower lobes. 3. Stable 2.1 cm right lobe liver lesion. Although incompletely characterized imaging features favor a hemangioma. Chilango Shaw MD Paracentesis 06/04/17 0000 Signed Impressions: Service Date/Time: Sunday, June 04, 2017 14:57 - CONCLUSION: Uncomplicated CT Guided paracentesis with removal of 3.6 L of fluid. Sample was saved and sent to the lab for evaluation. Chilango Shaw MD Abdomen Biopsy CT 06/04/17 0000 Signed Impressions: Service Date/Time: Sunday, June 04, 2017 14:57 - CONCLUSION: Uncomplicated CT guided biopsy of the omentum. Chilango Shaw MD Liver Ultrasound 06/02/17 0000 Signed Impressions: Service Date/Time: Friday, June 02, 2017 23:21 - CONCLUSION: 1. Cirrhosis 2. Possible mass right lobe of the liver. MRI is recommended for further evaluation if clinically indicated. 3. Moderate ascites Mert Paige MD Chest X-Ray 05/31/17 087 Signed Impressions: Service Date/Time: Wednesday, May 31, 2017 16:05 - CONCLUSION: No acute disease. Ivan Lowe MD Cyst Biopsy Asp-Paracentesis US 05/31/17 0000 Signed Impressions: Service Date/Time: Wednesday, May 31, 2017 16:43 - CONCLUSION: Uncomplicated ultrasound guided paracentesis. Minimal fluid aspirated. Jonathan Adame MD Last Impressions Chest X-Ray 05/31/17 1557 Signed Impressions: Service Date/Time: Wednesday, May 31, 2017 16:05 - CONCLUSION: No acute disease. Ivan Lowe MD Abdomen/Pelvis CT 05/31/17 1403 Signed Impressions: Service Date/Time: Wednesday, May 31, 2017 14:41 - CONCLUSION: Ascites appears complex new from 03/23/17. Other than liver disease I don't see an etiology for such. If paracentesis is contemplated fluid should be sent for cytology. Tom Kellogg MD FACR Cyst Biopsy Asp-Paracentesis US 05/31/17 0000 Signed Impressions: Service Date/Time: Wednesday, May 31, 2017 16:43 - CONCLUSION: Uncomplicated ultrasound guided paracentesis. Minimal fluid aspirated. Jonathan Adame MD Narrative Exam NAD Abd: significantly distended, tense, moderate diffuse ttp. NG with slightly bilious output 450cc A/P Assessment and Plan 52 yo F with stage 4 gastric adenocarcinoma, with antral mass which is narrowing gastric outlet, malignant ascites, likely omental caking. Still very distended. She may have malignant bowel obstruction in addition to partial gastric outlet obstruction. Check KUB. ? benefit from therapeutic paracentesis to relieve abdominal pressure. Scooby Yoo MD Jun 13, 2017 13:42
[2017-06-13] MEDS: METOCLOPRAMIDE HCL 10 MG/2 ML VIAL IV PUSH SCH ×2 (14:04→21:36)
[2017-06-13] MEDS: INSULIN ASPART SUPPLEMENTAL SCALE SQ SCH ×3 (14:06→22:25)
--- NOTE | 2017-06-13 14:26 | RADRPT ---
EXAM DATE/TIME: 06/13/2017 13:49 [facility] COMPARISON: ABDOMEN KUB ONLY, June 08, 2017, 12:43. INDICATIONS : Abdominal pain. MEDICAL HISTORY : Carcinoma, gastric. Cardiovascular disease. Hypertension Diabetes mellitus type II. SURGICAL HISTORY : section. ENCOUNTER: Initial ACUITY: 2 weeks PAIN SCORE: 10/10 LOCATION: Abdomen FINDINGS: 2 AP supine views of the abdomen. Bowel gas pattern is very similar to the prior study of 06/08/2017. Distended air filled transverse colon as well as contrast in the proximal transverse colon. CONCLUSION: Nonspecific bowel gas pattern. Very similar to the prior study of 06/08/2017. Owen Pantoja MD on June 13, 2017 at 14:23 Board Certified Radiologist. This report was verified electronically.
[2017-06-13] MEDS: CIPROFLOXACIN 400 MG PREMIX 200 ML IV SCH ×2 (15:21→23:18)
--- NOTE | 2017-06-13 15:28 | HHI.GIFU ---
Subjective Remarks Patient is resting in bed accompanied by family, still with abd pain, significant out put through NGT, no BM (Jw,Kd POINT OF CARE TECHNICIAN) Objective Vitals I&O Vital Signs Date Time Temp Pulse Resp B/P (MAP) Pulse Ox O2 Delivery O2 Flow Rate FiO2 06/13/17 14:07 97.7 121 20 162/86 (111) 96 06/13/17 08:00 122 06/13/17 07:49 97.7 122 20 147/99 (115) 95 06/13/17 04:00 99.0 113 16 159/87 (111) 96 06/13/17 00:00 97.7 118 15 156/97 (116) 94 06/12/17 22:13 92 06/12/17 20:00 117 06/12/17 20:00 98.6 122 19 168/99 (122) 92 06/12/17 17:15 98.0 123 18 165/86 (112) 92 06/12/17 15:26 116 14 169/102 (124) 95 I/O 06/12/17 06/12/17 06/12/17 06/13/17 06/13/17 06/13/17 07:00 15:00 23:00 07:00 15:00 23:00 Intake Total 725 ml 1050 ml Output Total 400 ml 450 ml 450 ml Balance -400 ml 725 ml 600 ml -450 ml Intake Oral 300 ml IV Total 725 ml 750 ml Output Urine Total 450 ml Gastric Drainage Total 400 ml 450 ml # Voids 1 3 3 Laboratory Laboratory Tests Test 06/13/17 05:00 White Blood Count 27.8 Red Blood Count 3.58 Hemoglobin 10.6 Hematocrit 32.2 Mean Corpuscular Volume 89.8 Mean Corpuscular Hemoglobin 29.6 Mean Corpuscular Hemoglobin Concent 32.9 Red Cell Distribution Width 14.1 Platelet Count 301 Mean Platelet Volume 7.3 Neutrophils (%) (Auto) 85.3 Lymphocytes (%) (Auto) 4.4 Monocytes (%) (Auto) 9.7 Eosinophils (%) (Auto) 0.0 Basophils (%) (Auto) 0.6 Neutrophils # (Auto) 23.7 Lymphocytes # (Auto) 1.2 Monocytes # (Auto) 2.7 Eosinophils # (Auto) 0.0 Basophils # (Auto) 0.2 CBC Comment AUTO DIFF Differential Total Cells Counted 100 Neutrophils % (Manual) 69 Band Neutrophils % 19 Lymphocytes % 4 Monocytes % 6 Neutrophils # (Manual) 25.0 Metamyelocytes 2 Differential Comment FINAL DIFF MANUAL Platelet Estimate NORMAL Platelet Morphology Comment NORMAL Red Cell Morphology Comment NORMAL Blood Urea Nitrogen 11 Creatinine 0.49 Random Glucose 242 Total Protein 6.5 Albumin 2.4 Calcium Level 8.3 Alkaline Phosphatase 69 Aspartate Amino Transf (AST/SGOT) 18 Alanine Aminotransferase (ALT/SGPT) 13 Total Bilirubin 0.3 Sodium Level 131 Potassium Level 3.5 Chloride Level 94 Carbon Dioxide Level 30.8 Anion Gap 6 Estimat Glomerular Filtration Rate 133 Date/Time Source Procedure Growth Status 06/12/17 12:59 Blood Peripheral Aerobic Blood Culture - Preliminary NO GROWTH IN 1 DAY Resulted 06/12/17 12:59 Blood Peripheral Anaerobic Blood Culture - Preliminary NO GROWTH IN 1 DAY Resulted 06/04/17 15:22 Fluid Peritoneal Fluid Gram Stain - Final Complete 06/04/17 15:22 Fluid Peritoneal Fluid Body Fluid Culture - Final NO GROWTH IN 72 HRS.--AEROBICALLY OR ... Complete Imaging Last Impressions Abdomen X-Ray 06/13/17 0000 Signed Impressions: Service Date/Time: Tuesday, June 13, 2017 13:49 - CONCLUSION: Nonspecific bowel gas pattern. Very similar to the prior study of 06/08/2017. Owen Pantoja MD Lower Extremity Ultrasound 06/12/17 0000 Signed Impressions: Service Date/Time: Monday, June 12, 2017 14:04 - CONCLUSION: Normal examination. Ron Kim MD Chest X-Ray 06/11/17 0000 Signed Impressions: Service Date/Time: Sunday, June 11, 2017 12:17 - CONCLUSION: 1. Interval placement of right-sided PICC line and nasogastric tube. 2. New abnormal opacity in both lung bases left greater than right with small to moderate left effusion. Teddy Perez MD Abdomen/Pelvis CT 06/09/17 0000 Signed Impressions: Service Date/Time: Friday, June 09, 2017 12:50 - CONCLUSION: 1. Diffuse abdominal ascites. With omental thickening. Ascites could either be from cirrhotic changes or peritoneal carcinomatosis. 2. No findings to indicate bowel obstruction. 3. Small bilateral effusions with dependent atelectasis. Xavier Kellogg MD Paracentesis 06/04/17 0000 Signed Impressions: Service Date/Time: Sunday, June 04, 2017 14:57 - CONCLUSION: Uncomplicated CT Guided paracentesis with removal of 3.6 L of fluid. Sample was saved and sent to the lab for evaluation. Chilango Shaw MD Abdomen Biopsy CT 06/04/17 Signed Impressions: Service Date/Time: Sunday, June 04, 2017 14:57 - CONCLUSION: Uncomplicated CT guided biopsy of the omentum. Chilango Shaw MD Liver Ultrasound 06/02/17 0000 Signed Impressions: Service Date/Time: Friday, June 02, 2017 23:21 - CONCLUSION: 1. Cirrhosis 2. Possible mass right lobe of the liver. MRI is recommended for further evaluation if clinically indicated. 3. Moderate ascites Mert Paige MD Cyst Biopsy Asp-Paracentesis US 05/31/17 Signed Impressions: Service Date/Time: Wednesday, May 31, 2017 16:43 - CONCLUSION: Uncomplicated ultrasound guided paracentesis. Minimal fluid aspirated. Jonathan Adame MD Physical Exam HEENT: Normocephalic; atraumatic; no jaundice. NGT to LIWS with bilious output CHEST: Resp. shallow/even. CARDIAC: RRR ABDOMEN: Firm, distended, diffuse tenderness; bowel sounds present, hypoactive EXTREMITIES: Trace BLE edema SKIN: Normal; no rash; no jaundice. 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 S/P EGD (06/10/17). Omentum biopsy (06/07/17)---> features highly suspicious for signet ring adenocarcinoma. Oncology following. - New onset ascites, spontaneous bacterial peritonitis. S/P US Paracentesis ()---> 15cc. Peritoneal 1657, RBC 349. Fluid cultures no growth in 48 hours. SAAG> 1.1, indicating portal hypertension as the etiology for her ascites. Cytology atypical epithelioid cells are present, suspicious for malignancy. SAAG suggests portal htn, but recently had fibrosis score of 0.04 on RODRIGUEZ fibrosure. Liver US (06/02/17)--> Cirrhosis, possible mass right lobe of the liver. MRI is recommended for further evaluation if clinically indicated, moderate ascites. Tumor Markers - Ca 125 172.6, Ca 19-9 17.5, Ca15-3 24.2, CEA 0.8, AFP 1.2. Suspect malignant ascites. S/P Repeat CT guided Paracentesis (06/04), cx no growth 72 hours. S/P Omental biopsy (06/07/17), pathology with features highly suspicious for signet ring adenocarcinoma. Spironolactone - Abdominal pain, nausea, distention, constipation. CT scan abdomen and pelvis ( 05/31/17)---> Ascites appears complex new from 03/23/17. Other than liver disease I don't see an etiology for such. If paracentesis is contemplated fluid should be sent for cytology. ADDENDUM: The above was reviewed. Of note, the patient is a stable 2 cm lesion in the medial aspect of the right hepatic lobe which shows rim enhancement, most characteristic of a benign hemangioma. Re\re aerating the above, there is stranding in the omentum which appears to be isolated. There is no associated anasarca or fluid in the mesenteric leaves. This appears to be a process isolated to the omentum itself. Although there are no discrete soft tissue lesions, findings could represent an interstitial or lymphatic type neoplastic process. Omental biopsy could be considered for further characterization. S/P CT guided biopsy of the omentum (06/04/17) suspicious for signet ring adenocarcinoma. S/P Relistor 06/08, no results. CT abdomen and pelvis without iv contrast (06/09/17)---> Diffuse abdominal ascites. With omental thickening. Ascites could either be from cirrhotic changes or peritoneal carcinomatosis, no findings to indicate bowel obstruction, small bilateral effusions with dependent atelectasis. NGT was placed during EGD. by IR. ? Dysmotility. ? SBFT - Malnutrition. Started on PPN, [facility] access team following for PICC. - Severe GERD. PPI. Carafate - Liver mass, liver US as above, with elevated Ca 125 at 172.6, cytology from paracentesis suspicious for malignancy. Omentum bx suspicious for signet cell adenocarcinoma. EGD with abnormal antrum, suggestive fo cancer. Pathology from EGD pending. - ? Portal hypertension. CT with small liver, SAAG > 1.1, indicating portal hypertension, mild coagulopathy, and hypoalbuminemia. S/P Outpatient workup April of 2017- ASMA (+), RACHELE (+), RODRIGUEZ Fibrosure with fibrosis score of 0.04, steatosis score of 0.78/S3 (marked or severe steatosis). Viral hepatitis was negative. IgG subclasses unremarkable. AMA negative. Iron studies unremarkable, Ceruloplasmin unremarkable. Pt with portal htn, although fibrosis score of 0.04 in Apr. - (+) RACHELE. Titer 1:640. Actin IgG ab 36 H. - Leukocytosis. WBC 18.8. BCx no growth 5 day. Peritoneal fluid no growth 72 hours. 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 pt still distended, no BM, refusing miralax. per GS trial NGT clamped and pureed diet, pt did not tolerate. NGT back to suction with 100cc output in 1hour per RN. GS considering GJ 06/13/17 NGT with significant biliary out put. Still no BM, GS following, oncology following PLAN - NGT to LIWS - PPN/TPN - If this persists, consider G-J tube - Protonix - Spironolactone - Further recommendations to follow after seen and examined by Dr. Davison (Kd Escalera) Physician Comments Patient seen and examined Agree with above Continue with current supportive care Monitor labs Not much to add from a GI perspective we will defer to the general surgery service and oncology service for further recommendations We will sign off (Jefry Davison MD) Kd Escalera Jun 13, 2017 15:28 Jefry Davison MD Jun 13, 2017 20:47
[2017-06-13] MEDS: LORazepam 2 MG/ML VIAL IV PUSH PRN ×2 (16:06→21:56)
[2017-06-13] MEDS ORDERED: METOPROLOL TARTRATE 5 MG/5 ML VIAL IV PUSH ONE ×3 (18:15→23:15)
[2017-06-13] MEDS: ASPIRIN EC 81 MG TABEC PO SCH (20:52)
[2017-06-13] MEDS: CLINIMIX E 5/25 2000 mL- >42 mls/hr IV-CENTRAL SCH ×3 (21:37)
[2017-06-13] MEDS: FAT EMULSION 20% INJ 250 ML (@10 mls/hr) IV-CENTRAL SCH (21:47)
[2017-06-14] VITALS (33 sets, daily range): BP systolic 120–205; BP diastolic 82–108; PULSE 116–145; RESP 18–20; TEMP 98–99.1; O2SAT 92–97
[2017-06-14] MEDS: ONDANSETRON HCL 4 MG/2 ML VIAL IV PUSH PRN ×5 (00:32→21:01)
[2017-06-14] MEDS: HYDROmorphone HCL PF 1 MG/ML VIAL IV PUSH PRN ×7 (00:35→21:06)
[2017-06-14] MEDS: METOPROLOL TARTRATE 5 MG/5 ML VIAL IV PUSH SCH ×4 (02:08→22:04)
[2017-06-14] MEDS: SODIUM CHLORIDE 0.9% FLUSH 10 ML FLUSH IV FLUSH PRN (02:08)
[2017-06-14] MEDS ORDERED: DILTIAZEM HCL 25 MG/5 ML VIAL IV ONE (03:15)
[2017-06-14] MEDS ORDERED: DILTIAZEM 125 MG/NS 100 ML IV PRN ×2 (03:15)
[2017-06-14] MEDS: INSULIN ASPART SUPPLEMENTAL SCALE SQ SCH ×3 (04:54→18:20)
[2017-06-14 05:34] LABS: AUTOMATED NEUTROPHIL # 18.7 TH/MM3 (1.8-7.7); BASOPHIL % 0.2 % (0.0-2.0); EOSINOPHIL % 0.2 % (0.0-4.0); HEMATOCRIT 33.2 % (35.0-46.0); HEMO FLAGS DIFF FINAL; LYMPH % 6.1 % (9.0-44.0); LYMPHOCYTE # 1.3 TH/MM3 (1.0-4.8); MEAN CELL VOLUME 89.9 FL (80.0-100.0); MEAN CORPUSCULAR HEMOGLOBIN 29.3 PG (27.0-34.0); MEAN CORPUSCULAR HGB CONC 32.6 % (32.0-36.0); MONO % 6.7 % (0.0-8.0); NEUT % 86.8 % (16.0-70.0); PLATELET COUNT 286 TH/MM3 (150-450); RED BLOOD COUNT 3.69 MIL/MM3 (4.00-5.30); RED CELL DISTRIBUTION WIDTH 14.5 % (11.6-17.2); WHITE BLOOD COUNT 21.5 TH/MM3 (4.0-11.0)
[2017-06-14 06:02] LABS: ANION GAP 8 MEQ/L (5-15); AST (GOT) 22 U/L (15-37); BICARBONATE 31.6 MEQ/L (21.0-32.0); BLOOD UREA NITROGEN 12 MG/DL (7-18); CHLORIDE 91 MEQ/L (98-107); GLOMERULAR FILTRATION RATE 107 ML/MIN (>89); POTASSIUM 3.4 MEQ/L (3.5-5.1); SODIUM (NA) 131 MEQ/L (136-145)
[2017-06-14 06:06] LABS: ALKALINE PHOSPHATASE 74 U/L (45-117); ALT (GPT) 16 U/L (10-53); TOTAL BILIRUBIN ADULT 0.4 MG/DL (0.2-1.0)
[2017-06-14 06:15] LABS: THYROXINE (T4) 10.7 MCG/DL (4.8-13.9)
[2017-06-14] MEDS: METOCLOPRAMIDE HCL 10 MG/2 ML VIAL IV PUSH SCH ×3 (06:15→22:14)
[2017-06-14] MEDS: LORazepam 2 MG/ML VIAL IV PUSH PRN (08:12)
[2017-06-14] MEDS: ENOXAPARIN SODIUM 40 MG/0.4 ML SYRINGE SQ SCH (08:13)
[2017-06-14] MEDS: PANTOPRAZOLE SODIUM 40 MG VIAL IV PUSH SCH ×2 (08:13→22:18)
--- NOTE | 2017-06-14 08:39 | PD.ONC.PN ---
Subjective Subjective Remarks Ms. Vicente was seen and examined, vital signs, labs, medications and events over the past 48 hours were reviewed. She did initiate palliative systemic chemotherapy with FOLFOX on 06/12/2017; she is approaching the end of the 5-FU infusion pump. Subjectively; patient reports having abdominal pain which is been severe and "unrelenting ". She has had little to nothing to drink or eat over the weekend, her abdomen feels distended and she has not had a bowel movement passed flatus. Over the course of last night she became tachycardic with sustained sinus tachycardia into the 140s, she was given a bolus dose of Cardizem and there was initiated on Cardizem drip which has lowered her heart rate down to the 120s. Lower extremities have remained at a mattress and ultrasound Doppler studies over the weekend were negative for deep venous thrombosis. She remains on TPN, her NG tube remains in place to intermittent wall suction. Objective Data Date Time Temp Pulse Resp B/P (MAP) Pulse Ox O2 Delivery O2 Flow Rate FiO2 06/14/17 08:19 119 18 146/95 (112) 95 06/14/17 08:14 134 20 150/100 (117) 94 06/14/17 08:07 98.0 135 20 205/107 (139) 92 06/14/17 06:42 139 139/95 06/14/17 05:37 137 18 160/100 (120) 94 06/14/17 05:17 140 18 161/95 (117) 93 06/14/17 04:56 140 20 154/96 (115) 93 06/14/17 04:36 139 20 140/89 (106) 94 06/14/17 04:26 143 06/14/17 04:20 143 20 120/91 (101) 94 06/14/17 04:02 99.0 137 20 152/92 (112) 93 06/14/17 04:02 137 152/92 06/14/17 03:50 138 20 157/96 (116) 93 06/14/17 03:40 142 20 134/94 (107) 92 06/14/17 02:43 140 06/14/17 02:38 136 20 157/100 (119) 94 06/14/17 02:24 133 20 160/99 (119) 95 06/14/17 02:09 129 20 163/87 (112) 95 06/14/17 01:58 145 20 166/98 (120) 94 06/14/17 00:56 139 06/14/17 00:27 99.1 136 20 157/97 (117) 93 06/13/17 23:48 129 20 137/99 (112) 93 06/13/17 23:33 127 20 159/97 (117) 93 06/13/17 23:18 127 20 159/94 (115) 94 06/13/17 23:08 143 20 133/92 (106) 93 06/13/17 22:56 140 06/13/17 22:42 136 06/13/17 21:26 126 147/88 (107) 95 06/13/17 20:55 118 20 149/86 (107) 06/13/17 20:41 132 151/95 (113) 06/13/17 20:09 129 06/13/17 20:00 99.0 124 20 122/98 (106) 94 06/13/17 18:46 120 138/91 (107) 06/13/17 18:27 95 Nasal Cannula 2.00 06/13/17 17:47 98.8 130 20 157/97 (117) 95 06/13/17 16:06 113 139/93 (108) 06/13/17 14:07 97.7 121 20 162/86 (111) 96 06/13/17 09:00 93 Nasal Cannula 2.00 06/14/17 06/14/17 06/14/17 07:00 15:00 23:00 Intake Total 1280 ml Output Total 550 ml Balance 730 ml Result Diagram: 06/14/17 0455 06/14/17 0455 Laboratory Results Laboratory Tests Test 06/14/17 04:55 White Blood Count 21.5 TH/MM3 Red Blood Count 3.69 MIL/MM3 Hemoglobin 10.8 GM/DL Hematocrit 33.2 % Mean Corpuscular Volume 89.9 FL Mean Corpuscular Hemoglobin 29.3 PG Mean Corpuscular Hemoglobin Concent 32.6 % Red Cell Distribution Width 14.5 % Platelet Count 286 TH/MM3 Mean Platelet Volume 7.6 FL Neutrophils (%) (Auto) 86.8 % Lymphocytes (%) (Auto) 6.1 % Monocytes (%) (Auto) 6.7 % Eosinophils (%) (Auto) 0.2 % Basophils (%) (Auto) 0.2 % Neutrophils # (Auto) 18.7 TH/MM3 Lymphocytes # (Auto) 1.3 TH/MM3 Monocytes # (Auto) 1.4 TH/MM3 Eosinophils # (Auto) 0.0 TH/MM3 Basophils # (Auto) 0.0 TH/MM3 CBC Comment DIFF FINAL Differential Comment Blood Urea Nitrogen 12 MG/DL Creatinine 0.59 MG/DL Random Glucose 298 MG/DL Total Protein 6.6 GM/DL Albumin 2.5 GM/DL Calcium Level 8.2 MG/DL Alkaline Phosphatase 74 U/L Aspartate Amino Transf (AST/SGOT) 22 U/L Alanine Aminotransferase (ALT/SGPT) 16 U/L Total Bilirubin 0.4 MG/DL Sodium Level 131 MEQ/L Potassium Level 3.4 MEQ/L Chloride Level 91 MEQ/L Carbon Dioxide Level 31.6 MEQ/L Anion Gap 8 MEQ/L Estimat Glomerular Filtration Rate 107 ML/MIN Thyroxine (T4) 10.7 MCG/DL Thyroid Stimulating Hormone 3rd Gen 2.740 uIU/ML Culture Results Microbiology Date/Time Source Procedure Growth Status 06/12/17 12:59 Blood Peripheral Aerobic Blood Culture - Preliminary NO GROWTH IN 1 DAY Resulted 06/12/17 12:59 Blood Peripheral Anaerobic Blood Culture - Preliminary NO GROWTH IN 1 DAY Resulted 06/12/17 12:56 Blood Peripheral Aerobic Blood Culture - Preliminary NO GROWTH IN 1 DAY Resulted 06/12/17 12:56 Blood Peripheral Anaerobic Blood Culture - Preliminary NO GROWTH IN 1 DAY Resulted Administered Medications Medications (Trade) Dose Ordered Sig/Nelda Route PRN Reason Start Time Stop Time Status Last Admin Dose Admin Sodium Chloride (NS Flush) 2 ml UNSCH PRN IV FLUSH FLUSH AFTER USING IV ACCESS 05/31/17 16:00 06/14/17 02:08 Sodium Chloride (NS Flush) 2 ml BID IV FLUSH 05/31/17 21:00 06/13/17 19:34 Aspirin (Ecotrin Ec) 81 mg HS PO 05/31/17 21:00 06/12/17 21:00 Miscellaneous (Pill Splitter) 1 ea UNSCH PRN OTHER SEE LABEL COMMENTS 05/31/17 21:00 06/12/17 09:05 Ondansetron HCl (Zofran Inj) 4 mg Q4H PRN IV PUSH NAUSEA 06/07/17 21:00 06/14/17 03:26 Pantoprazole Sodium (Protonix Inj) 40 mg Q12H IV PUSH 06/08/17 21:00 06/14/17 08:13 Fat Emulsion Intravenous 250 ml @ 10 mls/hr Q24H IV-CENTRAL 06/10/17 20:00 06/13/17 21:47 Phenol (Chloraseptic [place]) 2 spray Q2H PRN OROPHARYNG throat pain 06/11/17 12:00 06/12/17 02:47 Hydromorphone HCl (Dilaudid Pf Inj) 1 mg Q3H PRN IV PUSH pain 3-10 06/11/17 12:00 06/14/17 06:20 Sodium Chloride (NS Flush) See Protocol DAILY IV FLUSH 06/12/17 09:00 06/12/17 09:07 Heparin Sodium (Porcine) (Heparin Central Flush) See Protocol DAILY IV FLUSH 06/12/17 09:00 06/12/17 09:08 Sodium Chloride (NS Flush) UNSCH PRN IV FLUSH SEE PROTOCOL TABLE 06/11/17 12:30 06/13/17 23:18 Fluorouracil 4560 mg/Heparin Sodium (Porcine) 5750 units/Sodium Chloride 92 ml @ 2 mls/hr ONCE ONCE IV 06/12/17 14:30 06/14/17 12:29 06/12/17 22:23 Multivitamins 10 ml/Folic Acid 1 mg/Amino Acids/ Electrolytes/ Dextrose 2,010.2 ml @ 75 mls/hr Q24H IV-CENTRAL 06/12/17 20:00 06/13/17 21:37 Metoclopramide HCl (Reglan Inj) 5 mg Q8HR IV PUSH 06/13/17 14:00 06/14/17 06:15 Metoprolol Tartrate (Lopressor Inj) 2.5 mg Q6H IV PUSH 06/13/17 08:15 06/14/17 08:12 Enoxaparin Sodium (Lovenox Inj) 40 mg Q24H SQ 06/13/17 08:15 06/14/17 08:13 Insulin Aspart (NovoLOG SUPPLEMENTAL SCALE) 1 Q6HR SQ 06/13/17 12:00 06/14/17 04:54 Ciprofloxacin/ Dextrose 200 ml @ 200 mls/hr Q12H IV 06/13/17 12:00 06/13/17 23:18 Lorazepam (Ativan Inj) 0.5 mg Q6H PRN IV PUSH nausea/anxiety 06/13/17 14:45 06/14/17 08:12 Diltiazem HCl 125 mg/Sodium Chloride 125 ml @ 5 mls/hr TITRATE PRN IV Tachycardia 06/14/17 03:15 06/14/17 04:02 Objective Remarks Ms. Vicente is a middle-aged female. She is sitting up in bed. she appears to be Uncomfortable, she is arousable but appears to be very tired. HEENT: Head atraumatic, normocephalic, conjunctivae are mildly pale, sclerae are anicteric, EOMI, PERRLA, oral exam no pharyngeal erythema. NECK: No palpable cervical or supraclavicular lymphadenopathy. RESPIRATORY: Decreased bibasilar breath sounds. Good air movement over the upper and middle lung zones. No wheezing or rhonchi. CARDIOVASCULAR: tachycardia, regular, S1-S2. No obvious murmurs, rubs or gallops. Heart rate sustained in the 120-130 bpm range. ABDOMEN: Distended abdomen, firm, tender to mild palpation, no obvious organ enlargement noted. Free fluid is noted within the abdomen. LOWER EXTREMITIES: Bilateral pretibial edema, no calf tenderness. MUSCULOSKELETAL: Good muscle mass, tone and strength. 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 Assessment/Plan Assessment Ms. Vicente is a 52-year-old female with a 2.5 month history of progressive epigastric pain, nausea, vomiting and abdominal distension. She was noted on imaging studies on 06/10/2017 to have omental thickening and ascites. Omental biopsy revealed findings highly concerning for a high-grade adenocarcinoma with signet cell features. An EGD ensued and the EGD revealed an antral mass involving the gastric wall associated with ulceration and thickening. 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 Her major complaints are that of abdominal distension, pain and nausea. Plan 1. 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 She has bowel obstruction or partial bowel obstruction at the level of the antrum due to the primary tumor as well as what appears to be small bowel partial obstruction due to peritoneal carcinomatosis. She is presently on TPN and is also has an NG tube to intermittent wall suction. She was treated with palliative systemic therapy with FOLFOX to help debulk her tumor to relieve some of her gastric symptoms of obstruction; cycle 1 day 1 was 06/12/2017. I have requested HER-2/cristina staining on her disease. Should she have HER-2 amplification she she would be a candidate for combination systemic chemotherapy with trastuzumab. 2. Persistent partial bowel obstruction: Her condition was discussed with Dr. Yoo of general surgery; options include palliative gastric bypass surgery which would be quite aggressive and would put the patient at high risk for postsurgical complications versus palliative gastrostomy tube placement with a J -tube placement for nutrition versus continued observation in the hopes that her disease will progress with chemotherapy and some degree of bowel motility will be resolved. 3. Persistent tachycardia: Continue Cardizem drip, she may be intravascularly depleted and may benefit from hydration. I will defer management to the medicine team. Continue ongoing care. Memo Davis MD Jun 14, 2017 08:39
[2017-06-14] MEDS: SODIUM CHLORIDE 0.9% FLUSH 10 ML FLUSH IV FLUSH SCH ×3 (09:00→22:12)
--- NOTE | 2017-06-14 09:04 | MB ---
cc: MOON BAEZA MD DATE OF CONSULTATION 06/14/2017 HISTORY This is a 52-year-old woman who was admitted to the hospital with abdominal pain, nausea, vomiting and abdominal distension. Since her admission we have been asked to see her from a cardiac standpoint. She does have a history of coronary artery disease with PTCA and stenting in 2010. She was admitted to the hospital for abdominal pain. Since her admission to the hospital she has had an omental biopsy consistent with metastatic cells felt to be possibly from the antrum. She continues to have abdominal discomfort and apparently has bowel obstruction at the level of the antrum. She is unable to take oral medications or nutrition and is being supported with parenteral nutrition. She has noted chest discomfort on and off. She has been given narcotics for her discomfort and her history is somewhat difficult to obtain because of sedation. She has noticed that her breathing has been off somewhat worse since her admission to hospital. She has developed bilateral pleural effusions, although no evidence for gross heart failure is present on her chest x-ray. White count is significantly elevated at a 21,000. She is mildly anemic at 10. On admission to the hospital electrocardiogram was done and has revealed no acute ST or T-wave changes. She has developed a sinus tachycardia and has recently been placed on a Cardizem drip with supplemental IV Lopressor to try to suppress her heart rates. No apparent recurrence of her anginal type pain has been present, although it is somewhat a difficult to obtain history from her, as noted above. PHYSICAL EXAMINATION GENERAL: On physical exam she is awake, she is somewhat sedated. VITAL SIGNS: Blood pressure is 140/70, pulse is 110 and regular. LUNGS: Essentially clear, although decreased breath sounds are present. CARDIOVASCULAR: Exam reveals a regular rate and rhythm. There is no murmur or gallop noted. ABDOMEN: Abdomen is soft but diffusely tender. ASSESSMENT The patient has had evidence for possible carcinoma of the stomach with metastasis accounting for her abdominal discomfort. She certainly appears to have no acute recurrence of coronary disease. RECOMMENDATIONS We will repeat electrocardiogram to reevaluate her rhythm. An echocardiogram has been done recently revealing normal LV function. Further recommendations will pend the outcome of her ECG. MD KAREN Smith/DEYANIRA /8:46 AM /8:54 AM
--- NOTE | 2017-06-14 10:17 | RADRPT ---
EXAM DATE/TIME: 06/14/2017 09:29 [facility] COMPARISON: CT ABDOMEN & PELVIS W/O CONTRAST, June 09, 2017, 12:50. INDICATIONS : Ascites. MEDICAL HISTORY : Metastatic adenocarcinoma. Myocardial infarction. Hypercholesterolemia. Hypertension. CAD. Anticoagul ant therapy. Diabetes. Measles. SURGICAL HISTORY : section. Coronary artery stent. EGD. NGtube. ENCOUNTER: Initial ACUITY: 1 day PAIN SCORE: 3/10 LOCATION: Abdomen. AREA EVALUATED: Abdomen. FINDINGS: All 4 quadrants were evaluated with ultrasound and demonstrated a small volume of simple-appearing fr ee fluid within the abdomen and pelvis. CONCLUSION: Small volume of free fluid is present within the abdomen or pelvis. Chilango Shaw MD on June 14, 2017 at 10:13 Board Certified Radiologist. This report was verified electronically.
[2017-06-14] MEDS ORDERED: METOPROLOL TARTRATE 5 MG/5 ML VIAL IV PUSH SCH (13:00)
[2017-06-14] MEDS ORDERED: METOPROLOL TARTRATE 5 MG/5 ML VIAL IV PUSH ONE (13:00)
[2017-06-14] MEDS: CIPROFLOXACIN 400 MG PREMIX 200 ML IV SCH (13:28)
--- NOTE | 2017-06-14 13:51 | HHI.PR ---
Subjective Subjective Notes On cardizem gtt. No change in abdominal symptoms. NG to suction. Objective Vitals/I&O Vital Signs Date Time Temp Pulse Resp B/P (MAP) Pulse Ox O2 Delivery O2 Flow Rate FiO2 06/14/17 12:31 98.8 136 18 169/108 (128) 95 06/14/17 12:21 Nasal Cannula 4.00 06/12/17 13:02 21 Labs Laboratory Tests Test 06/14/17 04:55 06/14/17 10:21 White Blood Count 21.5 Red Blood Count 3.69 Hemoglobin 10.8 Hematocrit 33.2 Mean Corpuscular Volume 89.9 Mean Corpuscular Hemoglobin 29.3 Mean Corpuscular Hemoglobin Concent 32.6 Red Cell Distribution Width 14.5 Platelet Count 286 Mean Platelet Volume 7.6 Neutrophils (%) (Auto) 86.8 Lymphocytes (%) (Auto) 6.1 Monocytes (%) (Auto) 6.7 Eosinophils (%) (Auto) 0.2 Basophils (%) (Auto) 0.2 Neutrophils # (Auto) 18.7 Lymphocytes # (Auto) 1.3 Monocytes # (Auto) 1.4 Eosinophils # (Auto) 0.0 Basophils # (Auto) 0.0 CBC Comment DIFF FINAL Differential Comment Blood Urea Nitrogen 12 Creatinine 0.59 Random Glucose 298 Total Protein 6.6 Albumin 2.5 Calcium Level 8.2 Alkaline Phosphatase 74 Aspartate Amino Transf (AST/SGOT) 22 Alanine Aminotransferase (ALT/SGPT) 16 Total Bilirubin 0.4 Sodium Level 131 Potassium Level 3.4 Chloride Level 91 Carbon Dioxide Level 31.6 Anion Gap 8 Estimat Glomerular Filtration Rate 107 Thyroxine (T4) 10.7 Thyroid Stimulating Hormone 3rd Gen 2.740 Troponin I LESS THAN 0.02 Date/Time Source Procedure Growth Status 06/12/17 12:59 Blood Peripheral Aerobic Blood Culture - Preliminary NO GROWTH IN 2 DAYS Resulted 06/12/17 12:59 Blood Peripheral Anaerobic Blood Culture - Preliminary NO GROWTH IN 2 DAYS Resulted 06/04/17 15:22 Fluid Peritoneal Fluid Gram Stain - Final Complete 06/04/17 15:22 Fluid Peritoneal Fluid Body Fluid Culture - Final NO GROWTH IN 72 HRS.--AEROBICALLY OR ... Complete Radiology Last Impressions Abdomen/Pelvis CT 06/05/17 0000 Signed Impressions: Service Date/Time: Monday, June 05, 2017 20:16 - CONCLUSION: 1. No acute change is identified to explain the diffuse abdominal pain. However, there is persistent fluid within the abdomen and pelvis along with thickening of the omentum and mild enhancement/thickening of the peritoneal lining. The volume of free fluid in the abdomen and pelvis has slightly increased compared to yesterday's CT performed following paracentesis. 2. Small bilateral pleural effusions, left larger than right. The left pleural effusion has slightly increased in volume since yesterday's CT. There is associated compressive atelectasis in the lower lobes. 3. Stable 2.1 cm right lobe liver lesion. Although incompletely characterized imaging features favor a hemangioma. Chilango Shaw MD Paracentesis 06/04/17 0000 Signed Impressions: Service Date/Time: Sunday, June 04, 2017 14:57 - CONCLUSION: Uncomplicated CT Guided paracentesis with removal of 3.6 L of fluid. Sample was saved and sent to the lab for evaluation. Chilango Shaw MD Abdomen Biopsy CT 06/04/17 Signed Impressions: Service Date/Time: Sunday, June 04, 2017 14:57 - CONCLUSION: Uncomplicated CT guided biopsy of the omentum. Chilango Shaw MD Liver Ultrasound 06/02/17 Signed Impressions: Service Date/Time: Friday, June 02, 2017 23:21 - CONCLUSION: 1. Cirrhosis 2. Possible mass right lobe of the liver. MRI is recommended for further evaluation if clinically indicated. 3. Moderate ascites Mert Paige MD Chest X-Ray 05/31/17 1557 Signed Impressions: Service Date/Time: Wednesday, May 31, 2017 16:05 - CONCLUSION: No acute disease. Ivan Lowe MD Cyst Biopsy Asp-Paracentesis US 05/31/17 Signed Impressions: Service Date/Time: Wednesday, May 31, 2017 16:43 - CONCLUSION: Uncomplicated ultrasound guided paracentesis. Minimal fluid aspirated. Jonathan Adame MD Last Impressions Chest X-Ray 05/31/17 920 Signed Impressions: Service Date/Time: Wednesday, May 31, 2017 16:05 - CONCLUSION: No acute disease. Ivan Lowe MD Abdomen/Pelvis CT 05/31/17 1403 Signed Impressions: Service Date/Time: Wednesday, May 31, 2017 14:41 - CONCLUSION: Ascites appears complex new from 03/23/17. Other than liver disease I don't see an etiology for such. If paracentesis is contemplated fluid should be sent for cytology. Tom Kellogg MD FACR Cyst Biopsy Asp-Paracentesis US 05/31/17 0000 Signed Impressions: Service Date/Time: Wednesday, May 31, 2017 16:43 - CONCLUSION: Uncomplicated ultrasound guided paracentesis. Minimal fluid aspirated. Jonathan Adame MD Narrative Exam NAD Abd: significantly distended, tense, moderate diffuse ttp. NG with bilious output 425cc A/P Assessment and Plan 52 yo F with stage 4 gastric adenocarcinoma, with antral mass which is narrowing gastric outlet, malignant ascites, likely omental caking. Malignant bowel obstruction- currently she will not benefit from J tube and she will be unable to undergo enteral nutrition. Radiology placed G tube is feasible and will allow tube to be removed from her nose for comfort. Case discussed with Dr. Lamar. Could do paracentesis first to decrease pressure on healing and decrease risk of ascitic leak. I discussed with patient and she is not bothered by NGT right now. So we'll continue NGT but if this becomes prolonged or very uncomfortable this can be performed. Scooby Yoo MD Jun 14, 2017 13:51
--- NOTE | 2017-06-14 14:23 | RADRPT ---
EXAM DATE/TIME: 06/14/2017 13:22 [facility] COMPARISON: CHEST SINGLE AP, June 11, 2017, 12:17. ABDOMEN KUB ONLY, June 13, 2017, 13:49. INDICATIONS : Abdominal pain- Evaluate NG tube placement. MEDICAL HISTORY : Carcinoma, gastric. Cardiovascular disease. Hypertension. Diabetes mellitus type II. SURGICAL HISTORY : section. ENCOUNTER: Subsequent ACUITY: 2 weeks PAIN SCORE: 8/10 LOCATION: Upper abdominal. FINDINGS: Portable supine AP view of the abdomen demonstrates nasogastric tube distal tip in the gastric body. Upper abdomen otherwise demonstrates no acute finding. There is a left pleural effusion. CONCLUSION: 1. Nasogastric tube distal tip in the gastric body. 2. Stable small to moderate size left pleural effusion. Chilango Shaw MD on June 14, 2017 at 14:20 Board Certified Radiologist. This report was verified electronically.
--- NOTE | 2017-06-14 16:04 | EKG ---
Date Performed: 06/14/2017 Time Performed: 08:53:53 PTAGE: 52 years EKG: SINUS TACHYCARDIA Compared to prior tracing no significant change ABNORMAL RHYTHM ECG PREVIOUS TRACING : 05/31/2017 16.15 DOCTOR: Pro Collier Interpretating Date/Time 06/14/2017 16:03:13
[2017-06-14] MEDS ORDERED: NS + KCL 20 MEQ INJ 1,000 ML IV SCH (16:15)
--- NOTE | 2017-06-14 16:32 | HHI.PR ---
Subjective Remarks Pt repots that she has still having a fair amount of abdominal pain She has not had much out from the NGT today and is feeling more nauseated Pt with some audible wheezing Objective Vitals Vital Signs Date Time Temp Pulse Resp B/P (MAP) Pulse Ox O2 Delivery O2 Flow Rate FiO2 06/14/17 12:31 98.8 136 18 169/108 (128) 95 06/14/17 12:21 93 Nasal Cannula 4.00 06/14/17 10:07 20 161/90 (113) 95 06/14/17 08:19 119 18 146/95 (112) 95 06/14/17 08:14 134 20 150/100 (117) 94 06/14/17 08:07 98.0 135 20 205/107 (139) 92 06/14/17 08:00 135 06/14/17 06:42 139 139/95 06/14/17 05:37 137 18 160/100 (120) 94 06/14/17 05:17 140 18 161/95 (117) 93 06/14/17 04:56 140 20 154/96 (115) 93 06/14/17 04:36 139 20 140/89 (106) 94 06/14/17 04:26 143 06/14/17 04:20 143 20 120/91 (101) 94 06/14/17 04:02 99.0 137 20 152/92 (112) 93 06/14/17 04:02 137 152/92 06/14/17 03:50 138 20 157/96 (116) 93 06/14/17 03:40 142 20 134/94 (107) 92 06/14/17 02:43 140 06/14/17 02:38 136 20 157/100 (119) 94 06/14/17 02:24 133 20 160/99 (119) 95 06/14/17 02:09 129 20 163/87 (112) 95 06/14/17 01:58 145 20 166/98 (120) 94 06/14/17 00:56 139 06/14/17 00:27 99.1 136 20 157/97 (117) 93 06/13/17 23:48 129 20 137/99 (112) 93 06/13/17 23:33 127 20 159/97 (117) 93 06/13/17 23:18 127 20 159/94 (115) 94 06/13/17 23:08 143 20 133/92 (106) 93 06/13/17 22:56 140 06/13/17 22:42 136 06/13/17 21:26 126 147/88 (107) 95 06/13/17 20:55 118 20 149/86 (107) 06/13/17 20:41 132 151/95 (113) 06/13/17 20:09 129 06/13/17 20:00 99.0 124 20 122/98 (106) 94 06/13/17 18:46 120 138/91 (107) 06/13/17 18:27 95 Nasal Cannula 2.00 06/13/17 17:47 98.8 130 20 157/97 (117) 95 06/14/17 06/14/17 06/15/17 15:00 23:00 07:00 Intake Total 105 ml Output Total 100 ml Balance 5 ml IV Total 105 ml Output Urine Total 100 ml Result Diagram: 06/14/17 0455 06/14/17 0455 Other Results Laboratory Tests Test 06/13/17 05:00 06/14/17 04:55 06/14/17 10:21 White Blood Count 27.8 TH/MM3 21.5 TH/MM3 Red Blood Count 3.58 MIL/MM3 3.69 MIL/MM3 Hemoglobin 10.6 GM/DL 10.8 GM/DL Hematocrit 32.2 % 33.2 % Mean Corpuscular Volume 89.8 FL 89.9 FL Mean Corpuscular Hemoglobin 29.6 PG 29.3 PG Mean Corpuscular Hemoglobin Concent 32.9 % 32.6 % Red Cell Distribution Width 14.1 % 14.5 % Platelet Count 301 TH/MM3 286 TH/MM3 Mean Platelet Volume 7.3 FL 7.6 FL Neutrophils (%) (Auto) 85.3 % 86.8 % Lymphocytes (%) (Auto) 4.4 % 6.1 % Monocytes (%) (Auto) 9.7 % 6.7 % Eosinophils (%) (Auto) 0.0 % 0.2 % Basophils (%) (Auto) 0.6 % 0.2 % Neutrophils # (Auto) 23.7 TH/MM3 18.7 TH/MM3 Lymphocytes # (Auto) 1.2 TH/MM3 1.3 TH/MM3 Monocytes # (Auto) 2.7 TH/MM3 1.4 TH/MM3 Eosinophils # (Auto) 0.0 TH/MM3 0.0 TH/MM3 Basophils # (Auto) 0.2 TH/MM3 0.0 TH/MM3 CBC Comment AUTO DIFF DIFF FINAL Differential Total Cells Counted 100 Neutrophils % (Manual) 69 % Band Neutrophils % 19 % Lymphocytes % 4 % Monocytes % 6 % Neutrophils # (Manual) 25.0 TH/MM3 Metamyelocytes 2 % Differential Comment FINAL DIFF MANUAL Platelet Estimate NORMAL Platelet Morphology Comment NORMAL Red Cell Morphology Comment NORMAL Blood Urea Nitrogen 11 MG/DL 12 MG/DL Creatinine 0.49 MG/DL 0.59 MG/DL Random Glucose 242 MG/DL 298 MG/DL Total Protein 6.5 GM/DL 6.6 GM/DL Albumin 2.4 GM/DL 2.5 GM/DL Calcium Level 8.3 MG/DL 8.2 MG/DL Alkaline Phosphatase 69 U/L 74 U/L Aspartate Amino Transf (AST/SGOT) 18 U/L 22 U/L Alanine Aminotransferase (ALT/SGPT) 13 U/L 16 U/L Total Bilirubin 0.3 MG/DL 0.4 MG/DL Sodium Level 131 MEQ/L 131 MEQ/L Potassium Level 3.5 MEQ/L 3.4 MEQ/L Chloride Level 94 MEQ/L 91 MEQ/L Carbon Dioxide Level 30.8 MEQ/L 31.6 MEQ/L Anion Gap 6 MEQ/L 8 MEQ/L Estimat Glomerular Filtration Rate 133 ML/MIN 107 ML/MIN Thyroxine (T4) 10.7 MCG/DL Thyroid Stimulating Hormone 3rd Gen 2.740 uIU/ML Troponin I LESS THAN 0.02 NG/ML Imaging Last Impressions Abdomen Biopsy CT 06/04/17 0000 Signed Impressions: Service Date/Time: Sunday, June 04, 2017 14:57 - CONCLUSION: Uncomplicated CT guided biopsy of the omentum. Chilango Shaw MD Liver Ultrasound 06/02/17 0000 Signed Impressions: Service Date/Time: Friday, June 02, 2017 23:21 - CONCLUSION: 1. Cirrhosis 2. Possible mass right lobe of the liver. MRI is recommended for further evaluation if clinically indicated. 3. Moderate ascites Mert Paige MD Chest X-Ray 05/31/17 [id number] Signed Impressions: Service Date/Time: Wednesday, May 31, 2017 16:05 - CONCLUSION: No acute disease. Ivan Lowe MD Abdomen/Pelvis CT 05/31/17 1403 Signed Impressions: Service Date/Time: Wednesday, May 31, 2017 14:41 - CONCLUSION: Ascites appears complex new from 03/23/17. Other than liver disease I don't see an etiology for such. If paracentesis is contemplated fluid should be sent for cytology. Tom Kellogg MD FACRADDENDUM: The above was reviewed. Of note, the patient is a stable 2 cm lesion in the medial aspect of the right hepatic lobe which shows rim enhancement, most characteristic of a benign hemangioma. Re\re aerating the above, there is stranding in the omentum which appears to be isolated. There is no associated anasarca or fluid in the mesenteric leaves. This appears to be a process isolated to the omentum itself. Although there are no discrete soft tissue lesions, findings could represent an interstitial or lymphatic type neoplastic process. Omental biopsy could be considered for further characterization. Jonathan Adame MD Cyst Biopsy Asp-Paracentesis US 05/31/17 0000 Signed Impressions: Service Date/Time: Wednesday, May 31, 2017 16:43 - CONCLUSION: Uncomplicated ultrasound guided paracentesis. Minimal fluid aspirated. 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 - Pt presented to the ED with complaints of worsening abdominal pain and distension. She states that she has been having issues with abd pain for the last 2 months. For the last 2 weeks she has been having increased generalized abd pain and distension which has been significantly worse over the last 2 days. - CT Abd/pelvis revealed ascites appears complex and new from 03/23/17. - She was previously seen in the ED on 03/[address] abd/pelvis at that time noted an 18mm lesion in the right lobe of the liver, with features favoring hemangioma. She was sent for followup as an outpt with GI. She had an MRI Abdomen W/O Contrast (05/13/17) with benign hemangioma in the caudate lobe of the liver corresponding to the lesion identified on CT otherwise normal examination. - Outpt workup with GI in April 2017 revealed positive ASMA, positive RACHELE, and RODRIGUEZ FibroSURE with fibrosis score of 0.04 (No fibrosis), Steatosis score of 0.78/S3 (marked or severe steatosis). Viral Hepatitis was negative. IgG subclasses were WNL, LKM Ab negative, AMA negative, Iron studies WNL, Ferritin 160 (slightly elevated), Ceruloplasmin WNL. Labs on 05/12/17 with AST 54, ALT 81, AlkPhos 92, Tbili 0.8 , DBili 0.2. autoimmune hepatitis was questioned. - Pt had diagnostic paracentesis on 05/31 with removal of 15cc of fluid - Cell count for the fluid noted WBC count 1657 - Fluid culture with no growth - cytology --> atypical epithelioid cells suspicious for malignancy - Repeat paracentesis 06/04/17 - 3,600ml of ascites removed - Ascitic Cell count: WBC 494, RBC 6525 - Fluid culture shows ngtd - cytology -->suspicious for malignant cells - Pt underwent Omental Biopsy (06/04/17) --> path suspicious for signet cell adenoca - EGD 06/11 --> antral ulcerated mass with near obstruction of outlet. 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 - Heme-Onc, Dr. Davis, is following. - She was started on palliative systemic therapy with FOLFOX to help debulk her tumor to relieve some of her gastric symptoms of obstruction - She received cycle 1 day 1 was 06/12/2017. - NGT placed for decompression for malignant bowel obstruction - General Surgery was consulted but its felt that currently the pt will not benefit from J tube and she will be unable to undergo enteral nutrition. - PICC line placed 06/11 and pt is on TPN - Pt developed sinus tachycardia with rates into the 140's, possibly secondary to physiological response related to her malignant/obstructive process. She was on Cardizem gtt with supplemental Lopressor IV. The Cardizem gtt has been stopped. - Cont. Lopressor 5mg IV Q6H for HR control. - Hematology to request a second surgical opinion from Dr. Kaplan to see about GJ tube placement. - CXR now - Follow daily labs - DVT prophylaxis with Lovenox (2) SVT (supraventricular tachycardia) ICD Codes: I47.1 - Supraventricular tachycardia Status: Acute Plan: - See above (3) Abdominal pain ICD Codes: R10.9 - Unspecified abdominal pain Status: Acute Plan: - See above. (4) Ascites ICD Codes: R18.8 - Other ascites Status: Acute Plan: - See above (5) Hypertension ICD Codes: I10 - Essential (primary) hypertension Status: Chronic Plan: - See above (6) Hyperlipidemia ICD Codes: E78.5 - Hyperlipidemia, unspecified Status: Chronic Plan: - Statin was held as an outpt (7) CAD (coronary artery disease) ICD Codes: I25.10 - Atherosclerotic heart disease of [place] coronary artery without angina pectoris Status: Chronic Plan: - Pt with hx of CAD and NSTEMI in 2010 s/p stent in the RCA (8) Tobacco abuse ICD Codes: Z72.0 - Tobacco use Status: Chronic Assessment and Plan Patient examined. Assessment and plan formulated with Rosemary Fong PA-C. I agree with the above. Problem Qualifiers (1) Abdominal pain: Qualified Codes: R10.84 - Generalized abdominal pain (2) Ascites: Qualified Codes: R18.8 - Other ascites Rosemary Fong Jun 14, 2017 16:32 Xu Hoover DO Jun 21, 2017 11:39
--- NOTE | 2017-06-14 17:41 | RADRPT ---
EXAM DATE/TIME: 06/14/2017 17:04 [facility] COMPARISON: CHEST SINGLE AP, June 11, 2017, 12:17. INDICATIONS : Shortness of breath. MEDICAL HISTORY : Hysterectomy. Coronary artery stent. SURGICAL HISTORY : section. ENCOUNTER: Subsequent ACUITY: 3 weeks PAIN SCORE: 0/10 LOCATION: Bilateral chest FINDINGS: Portable AP view of the chest demonstrates a normal-sized cardiac silhouette. Nasogastric tube and ri ght PICC remain present. There is a stable left basilar pleural-parenchymal opacity. Questionable vol ume loss is present at the right lung base. No pneumothorax is visualized. CONCLUSION: Stable chest x-ray with a small to moderate size left pleural effusion with associated volume loss an d/or consolidation. Chilango Shaw MD on June 14, 2017 at 17:39 Board Certified Radiologist. This report was verified electronically.
[2017-06-14] MEDS: fentaNYL 25 MCG/HR PATCH T-DERMAL SCH (18:18)
[2017-06-14] MEDS: ASPIRIN EC 81 MG TABEC PO SCH (19:39)
[2017-06-14] MEDS: CLINIMIX E 5/25 2000 mL- >42 mls/hr IV-CENTRAL SCH ×3 (20:44)
[2017-06-14] MEDS: FAT EMULSION 20% INJ 250 ML (@10 mls/hr) IV-CENTRAL SCH (20:51)
[2017-06-15] VITALS (12 sets, daily range): BP systolic 137–156; BP diastolic 83–103; PULSE 114–141; RESP 18–20; TEMP 97–98.7; O2SAT 94–97
[2017-06-15] MEDS: HYDROmorphone HCL PF 1 MG/ML VIAL IV PUSH PRN ×6 (00:38→21:56)
[2017-06-15] MEDS: CIPROFLOXACIN 400 MG PREMIX 200 ML IV SCH ×3 (00:46→22:29)
[2017-06-15] MEDS: INSULIN ASPART SUPPLEMENTAL SCALE SQ SCH ×5 (00:53→22:13)
[2017-06-15] MEDS: METOPROLOL TARTRATE 5 MG/5 ML VIAL IV PUSH SCH ×5 (03:22→22:23)
[2017-06-15] MEDS: SODIUM CHLORIDE 0.9% FLUSH 10 ML FLUSH IV FLUSH PRN (03:23)
[2017-06-15 05:19] LABS: AUTOMATED NEUTROPHIL # 17.9 TH/MM3 (1.8-7.7); BASOPHIL % 0.1 % (0.0-2.0); EOSINOPHIL % 0.2 % (0.0-4.0); HEMATOCRIT 31.8 % (35.0-46.0); HEMO FLAGS DIFF FINAL; LYMPHOCYTE # 1.4 TH/MM3 (1.0-4.8); MEAN CELL VOLUME 90.6 FL (80.0-100.0); MEAN CORPUSCULAR HEMOGLOBIN 29.6 PG (27.0-34.0); MEAN CORPUSCULAR HGB CONC 32.6 % (32.0-36.0); MONO % 2.5 % (0.0-8.0); NEUT % 90.2 % (16.0-70.0); PLATELET COUNT 227 TH/MM3 (150-450); RED BLOOD COUNT 3.51 MIL/MM3 (4.00-5.30); RED CELL DISTRIBUTION WIDTH 14.5 % (11.6-17.2); WHITE BLOOD COUNT 19.8 TH/MM3 (4.0-11.0)
[2017-06-15 05:41] LABS: ALT (GPT) 12 U/L (10-53); ANION GAP 7 MEQ/L (5-15); AST (GOT) 22 U/L (15-37); BICARBONATE 31.4 MEQ/L (21.0-32.0); BLOOD UREA NITROGEN 13 MG/DL (7-18); CHLORIDE 90 MEQ/L (98-107); GLOMERULAR FILTRATION RATE 114 ML/MIN (>89); MAGNESIUM 2.2 MG/DL (1.5-2.5); POTASSIUM 3.6 MEQ/L (3.5-5.1); SODIUM (NA) 128 MEQ/L (136-145)
[2017-06-15 05:43] LABS: ALKALINE PHOSPHATASE 105 U/L (45-117); TOTAL BILIRUBIN ADULT 0.4 MG/DL (0.2-1.0)
[2017-06-15] MEDS: METOCLOPRAMIDE HCL 10 MG/2 ML VIAL IV PUSH SCH ×3 (06:00→21:56)
--- NOTE | 2017-06-15 07:53 | PD.CARD.PN ---
Subjective Subjective Remarks The patient is sleepy this morning. She denies any chest pain, shortness of breath, or palpitations. Objective Medications Current Medications Medications (Trade) Dose Ordered Sig/Nelda Route Start Time Stop Time Status Last Admin (NS Flush) 2 ml UNSCH PRN IV FLUSH 05/31/17 16:00 06/15/17 03:23 (NS Flush) 2 ml BID IV FLUSH 05/31/17 21:00 06/14/17 22:12 (Narcan Inj) 0.4 mg UNSCH PRN IV PUSH 05/31/17 16:00 (Ecotrin Ec) 81 mg HS PO 05/31/17 21:00 06/12/17 21:00 (Pill Splitter) 1 ea UNSCH PRN OTHER 05/31/17 21:00 06/12/17 09:05 (Zofran Inj) 4 mg Q4H PRN IV PUSH 06/07/17 21:00 06/14/17 21:01 (Protonix Inj) 40 mg Q12H IV PUSH 06/08/17 21:00 06/14/17 22:18 Fat Emulsion Intravenous 250 ml @ 10 mls/hr Q24H IV-CENTRAL 06/10/17 20:00 06/14/17 20:51 (Chloraseptic Craig) 2 spray Q2H PRN OROPHARYNG 06/11/17 12:00 06/12/17 02:47 (Dilaudid Pf Inj) 1 mg Q3H PRN IV PUSH 06/11/17 12:00 06/15/17 06:03 (NS Flush) See Protocol DAILY IV FLUSH 06/12/17 09:00 06/14/17 09:00 (NS Flush) See Protocol UNSCH PRN IV FLUSH 06/11/17 12:30 (Heparin Central Flush) See Protocol DAILY IV FLUSH 06/12/17 09:00 06/12/17 09:08 (Heparin Central Flush) See Protocol UNSCH PRN IV FLUSH 06/11/17 12:30 (NS Flush) UNSCH PRN IV FLUSH 06/11/17 12:30 06/13/17 23:18 Multivitamins 10 ml/Folic Acid 1 mg/Amino Acids/ Electrolytes/ Dextrose 2,010.2 ml @ 75 mls/hr Q24H IV-CENTRAL 06/12/17 20:00 06/14/17 20:44 (Reglan Inj) 5 mg Q8HR IV PUSH 06/13/17 14:00 06/15/17 06:00 (Lovenox Inj) 40 mg Q24H SQ 06/13/17 08:15 06/14/17 08:13 (Vasotec Inj) 1.25 mg Q6H PRN IV PUSH 06/13/17 08:30 (NovoLOG SUPPLEMENTAL SCALE) 1 Q6HR SQ 06/13/17 12:00 06/15/17 06:22 (D50w (Vial) Inj) 50 ml UNSCH PRN IV PUSH 06/13/17 08:30 (Glucagon Inj) 1 mg UNSCH PRN OTHER 06/13/17 08:30 Ciprofloxacin/ Dextrose 200 ml @ 200 mls/hr Q12H IV 06/13/17 12:00 06/15/17 00:46 (Ativan Inj) 0.5 mg Q6H PRN IV PUSH 06/13/17 14:45 06/14/17 08:12 (Lopressor Inj) 5 mg Q6H IV PUSH 06/14/17 15:00 06/15/17 03:22 (Duragesic 25 Mcg Patch.72 Hr) 1 patch Q3D T-DERMAL 06/14/17 17:00 06/14/17 18:18 Miscellaneous Information 1 Q3D T-DERMAL 06/17/17 17:00 Vital Signs / I&O Vital Signs Date Time Temp Pulse Resp B/P (MAP) Pulse Ox O2 Delivery O2 Flow Rate FiO2 06/15/17 04:05 117 06/15/17 04:02 98.6 117 18 145/91 (109) 97 06/15/17 03:39 114 18 148/85 (106) 97 06/15/17 03:25 115 18 142/100 (114) 97 06/15/17 03:07 98.7 138 18 143/103 (116) 95 06/15/17 00:33 98.5 136 20 144/83 (103) 96 06/14/17 23:56 129 06/14/17 22:50 122 18 146/97 (113) 96 06/14/17 22:28 118 06/14/17 22:24 116 18 120/83 (95) 96 06/14/17 22:12 119 20 151/91 (111) 96 06/14/17 22:01 138 20 131/82 (98) 06/14/17 20:51 99.0 144 20 158/96 (116) 95 06/14/17 20:02 138 06/14/17 17:29 98.4 135 20 141/106 (118) 97 06/14/17 17:15 95 Nasal Cannula 4.00 06/14/17 12:31 98.8 136 18 169/108 (128) 95 06/14/17 12:21 93 Nasal Cannula 4.00 06/14/17 10:07 20 161/90 (113) 95 06/14/17 08:19 119 18 146/95 (112) 95 06/14/17 08:14 134 20 150/100 (117) 94 06/14/17 08:07 98.0 135 20 205/107 (139) 92 06/14/17 08:00 135 I/O 06/14/17 06/14/17 06/14/17 06/15/17 06/15/17 06/15/17 07:00 15:00 23:00 07:00 15:00 23:00 Intake Total 1280 ml 105 ml 1430.1 ml 763 ml Output Total 550 ml 100 ml 825 ml 1000 ml Balance 730 ml 5 ml 605.1 ml -237 ml Intake Oral 60 ml 5 ml IV Total 1220 ml 105 ml 1425.1 ml 763 ml Output Urine Total 425 ml 100 ml 550 ml 925 ml Gastric Drainage Total 125 ml 275 ml 75 ml Physical Exam GENERAL: Well-developed well-nourished. In no acute distress. NECK: No carotid bruits. No JVD. CARDIOVASCULAR: Regular tachycardic rate and regular rhythm. No murmur appreciated. RESPIRATORY: No accessory muscle use. Clear to auscultation. Decreased breath sounds in the left base. MUSCULOSKELETAL: No clubbing or cyanosis. No edema. NEUROLOGICAL: Sleepy but awakens easily. Normal speech. Laboratory Laboratory Tests Test 06/14/17 10:21 06/15/17 03:45 Troponin I LESS THAN 0.02 NG/ML White Blood Count 19.8 TH/MM3 Red Blood Count 3.51 MIL/MM3 Hemoglobin 10.4 GM/DL Hematocrit 31.8 % Mean Corpuscular Volume 90.6 FL Mean Corpuscular Hemoglobin 29.6 PG Mean Corpuscular Hemoglobin Concent 32.6 % Red Cell Distribution Width 14.5 % Platelet Count 227 TH/MM3 Mean Platelet Volume 8.5 FL Neutrophils (%) (Auto) 90.2 % Lymphocytes (%) (Auto) 7.0 % Monocytes (%) (Auto) 2.5 % Eosinophils (%) (Auto) 0.2 % Basophils (%) (Auto) 0.1 % Neutrophils # (Auto) 17.9 TH/MM3 Lymphocytes # (Auto) 1.4 TH/MM3 Monocytes # (Auto) 0.5 TH/MM3 Eosinophils # (Auto) 0.0 TH/MM3 Basophils # (Auto) 0.0 TH/MM3 CBC Comment DIFF FINAL Differential Comment Blood Urea Nitrogen 13 MG/DL Creatinine 0.56 MG/DL Random Glucose 342 MG/DL Total Protein 6.4 GM/DL Albumin 2.4 GM/DL Calcium Level 8.5 MG/DL Magnesium Level 2.2 MG/DL Alkaline Phosphatase 105 U/L Aspartate Amino Transf (AST/SGOT) 22 U/L Alanine Aminotransferase (ALT/SGPT) 12 U/L Total Bilirubin 0.4 MG/DL Sodium Level 128 MEQ/L Potassium Level 3.6 MEQ/L Chloride Level 90 MEQ/L Carbon Dioxide Level 31.4 MEQ/L Anion Gap 7 MEQ/L Estimat Glomerular Filtration Rate 114 ML/MIN Assessment and Plan Assessment and Plan 52-year-old woman who was admitted to the hospital with abdominal pain, nausea, vomiting and abdominal distension. The patient has had evidence for possible carcinoma of the stomach with metastasis accounting for her abdominal discomfort. She has developed a sinus tachycardia and has been placed on IV Lopressor to try to suppress her heart rates. No apparent recurrence of her anginal type pain has been present. Sinus tachycardia: EKG shows sinus tachycardia with rate 127. Troponin is negative. Echocardiogram reveals normal LV function. [place] Jun 15, 2017 07:53
[2017-06-15] MEDS: SODIUM CHLORIDE 0.9% FLUSH 10 ML FLUSH IV FLUSH SCH ×3 (08:34→21:53)
[2017-06-15] MEDS: ENOXAPARIN SODIUM 40 MG/0.4 ML SYRINGE SQ SCH (08:35)
[2017-06-15] MEDS: PANTOPRAZOLE SODIUM 40 MG VIAL IV PUSH SCH ×2 (08:35→21:52)
--- NOTE | 2017-06-15 08:48 | PD.ONC.PN ---
Subjective Subjective Remarks Patient seen and examined, vital signs, labs, medications, consultants and events over the past 24 hours were reviewed. The patient was seen yesterday by Dr. Wallace of cardiology, her beta juany dosing was increased and as a result her sustained sinus rate has decreased from the 140s down to between 110 and 120 bpm. The patient subjectively feels her abdominal pain has improved, overnight nurse concurs that the patient required a few doses of breakthrough pain medication. The patient's abdomen continues to feel distended and she continues to require an NG tube to intermittent wall suction. She has not passed any stools or flatus over the past 24 hours. The patient did undergo ultrasound of the abdomen yesterday and there was no significant free fluid noted in the abdominal cavity. She completed chemotherapy infusion yesterday and denies chemotherapy adverse effects as of yet. Objective Data Date Time Temp Pulse Resp B/P (MAP) Pulse Ox O2 Delivery O2 Flow Rate FiO2 06/15/17 08:19 97.0 139 18 156/88 (110) 97 06/15/17 04:05 117 06/15/17 04:02 98.6 117 18 145/91 (109) 97 06/15/17 03:39 114 18 148/85 (106) 97 06/15/17 03:25 115 18 142/100 (114) 97 06/15/17 03:07 98.7 138 18 143/103 (116) 95 06/15/17 00:33 98.5 136 20 144/83 (103) 96 06/14/17 23:56 129 06/14/17 22:50 122 18 146/97 (113) 96 06/14/17 22:28 118 06/14/17 22:24 116 18 120/83 (95) 96 06/14/17 22:12 119 20 151/91 (111) 96 06/14/17 22:01 138 20 131/82 (98) 06/14/17 20:51 99.0 144 20 158/96 (116) 95 06/14/17 20:02 138 06/14/17 17:29 98.4 135 20 141/106 (118) 97 06/14/17 17:15 95 Nasal Cannula 4.00 06/14/17 12:31 98.8 136 18 169/108 (128) 95 06/14/17 12:21 93 Nasal Cannula 4.00 06/14/17 10:07 20 161/90 (113) 95 06/15/17 06/15/17 06/15/17 07:00 15:00 23:00 Intake Total 763 ml Output Total 1000 ml Balance -237 ml Result Diagram: 06/15/17 0345 06/15/17 0345 Laboratory Results Laboratory Tests Test 06/14/17 10:21 06/15/17 03:45 Troponin I LESS THAN 0.02 NG/ML White Blood Count 19.8 TH/MM3 Red Blood Count 3.51 MIL/MM3 Hemoglobin 10.4 GM/DL Hematocrit 31.8 % Mean Corpuscular Volume 90.6 FL Mean Corpuscular Hemoglobin 29.6 PG Mean Corpuscular Hemoglobin Concent 32.6 % Red Cell Distribution Width 14.5 % Platelet Count 227 TH/MM3 Mean Platelet Volume 8.5 FL Neutrophils (%) (Auto) 90.2 % Lymphocytes (%) (Auto) 7.0 % Monocytes (%) (Auto) 2.5 % Eosinophils (%) (Auto) 0.2 % Basophils (%) (Auto) 0.1 % Neutrophils # (Auto) 17.9 TH/MM3 Lymphocytes # (Auto) 1.4 TH/MM3 Monocytes # (Auto) 0.5 TH/MM3 Eosinophils # (Auto) 0.0 TH/MM3 Basophils # (Auto) 0.0 TH/MM3 CBC Comment DIFF FINAL Differential Comment Blood Urea Nitrogen 13 MG/DL Creatinine 0.56 MG/DL Random Glucose 342 MG/DL Total Protein 6.4 GM/DL Albumin 2.4 GM/DL Calcium Level 8.5 MG/DL Magnesium Level 2.2 MG/DL Alkaline Phosphatase 105 U/L Aspartate Amino Transf (AST/SGOT) 22 U/L Alanine Aminotransferase (ALT/SGPT) 12 U/L Total Bilirubin 0.4 MG/DL Sodium Level 128 MEQ/L Potassium Level 3.6 MEQ/L Chloride Level 90 MEQ/L Carbon Dioxide Level 31.4 MEQ/L Anion Gap 7 MEQ/L Estimat Glomerular Filtration Rate 114 ML/MIN Culture Results Microbiology Date/Time Source Procedure Growth Status 06/12/17 12:59 Blood Peripheral Aerobic Blood Culture - Preliminary NO GROWTH IN 2 DAYS Resulted 06/12/17 12:59 Blood Peripheral Anaerobic Blood Culture - Preliminary NO GROWTH IN 2 DAYS Resulted 06/12/17 12:56 Blood Peripheral Aerobic Blood Culture - Preliminary NO GROWTH IN 2 DAYS Resulted 06/12/17 12:56 Blood Peripheral Anaerobic Blood Culture - Preliminary NO GROWTH IN 2 DAYS Resulted Administered Medications Medications (Trade) Dose Ordered Sig/Nelda Route PRN Reason Start Time Stop Time Status Last Admin Dose Admin Sodium Chloride (NS Flush) 2 ml UNSCH PRN IV FLUSH FLUSH AFTER USING IV ACCESS 05/31/17 16:00 06/15/17 03:23 Sodium Chloride (NS Flush) 2 ml BID IV FLUSH 05/31/17 21:00 06/14/17 22:12 Aspirin (Ecotrin Ec) 81 mg HS PO 05/31/17 21:00 06/12/17 21:00 Miscellaneous (Pill Splitter) 1 ea UNSCH PRN OTHER SEE LABEL COMMENTS 05/31/17 21:00 06/12/17 09:05 Ondansetron HCl (Zofran Inj) 4 mg Q4H PRN IV PUSH NAUSEA 06/07/17 21:00 06/14/17 21:01 Pantoprazole Sodium (Protonix Inj) 40 mg Q12H IV PUSH 06/08/17 21:00 06/14/17 22:18 Fat Emulsion Intravenous 250 ml @ 10 mls/hr Q24H IV-CENTRAL 06/10/17 20:00 06/14/17 20:51 Phenol (Chloraseptic [place]) 2 spray Q2H PRN OROPHARYNG throat pain 06/11/17 12:00 06/12/17 02:47 Hydromorphone HCl (Dilaudid Pf Inj) 1 mg Q3H PRN IV PUSH pain 3-10 06/11/17 12:00 06/15/17 06:03 Sodium Chloride (NS Flush) See Protocol DAILY IV FLUSH 06/12/17 09:00 06/14/17 09:00 Heparin Sodium (Porcine) (Heparin Central Flush) See Protocol DAILY IV FLUSH 06/12/17 09:00 06/12/17 09:08 Sodium Chloride (NS Flush) UNSCH PRN IV FLUSH SEE PROTOCOL TABLE 06/11/17 12:30 06/13/17 23:18 Multivitamins 10 ml/Folic Acid 1 mg/Amino Acids/ Electrolytes/ Dextrose 2,010.2 ml @ 75 mls/hr Q24H IV-CENTRAL 06/12/17 20:00 06/14/17 20:44 Metoclopramide HCl (Reglan Inj) 5 mg Q8HR IV PUSH 06/13/17 14:00 06/15/17 06:00 Enoxaparin Sodium (Lovenox Inj) 40 mg Q24H SQ 06/13/17 08:15 06/14/17 08:13 Insulin Aspart (NovoLOG SUPPLEMENTAL SCALE) 1 Q6HR SQ 06/13/17 12:00 06/15/17 06:22 Ciprofloxacin/ Dextrose 200 ml @ 200 mls/hr Q12H IV 06/13/17 12:00 06/15/17 00:46 Lorazepam (Ativan Inj) 0.5 mg Q6H PRN IV PUSH nausea/anxiety 06/13/17 14:45 06/14/17 08:12 Metoprolol Tartrate (Lopressor Inj) 5 mg Q6H IV PUSH 06/14/17 15:00 06/15/17 03:22 Fentanyl (Duragesic 25 Mcg Patch.72 Hr) 1 patch Q3D T-DERMAL 06/14/17 17:00 06/14/17 18:18 Objective Remarks Ms. Vicente is a middle-aged female. She is sitting up in bed. she appears to be Uncomfortable, she is arousable but appears to be very tired, somewhat sedated as well. She seems to drift in and out of consciousness as I talked to her is morning. HEENT: Head atraumatic, normocephalic, conjunctivae are mildly pale, sclerae are anicteric, EOMI, PERRLA, oral exam no pharyngeal erythema. NECK: No palpable cervical or supraclavicular lymphadenopathy. RESPIRATORY: Decreased bibasilar breath sounds. Good air movement over the upper and middle lung zones. No wheezing or rhonchi. CARDIOVASCULAR: tachycardia, regular, S1-S2. No obvious murmurs, rubs or gallops. Heart rate sustained in the 120-130 bpm range. ABDOMEN: Distended abdomen, firm, tender to mild palpation, no obvious organ enlargement noted. Free fluid is noted within the abdomen. LOWER EXTREMITIES: Bilateral pretibial edema, no calf tenderness. MUSCULOSKELETAL: Good muscle mass, tone and strength. 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 Assessment/Plan Assessment Ms. Vicente is a 52-year-old female with a 2.5 month history of progressive epigastric pain, nausea, vomiting and abdominal distension. She was noted on imaging studies on 06/10/2017 to have omental thickening and ascites. Omental biopsy revealed findings highly concerning for a high-grade adenocarcinoma with signet cell features. An EGD ensued and the EGD revealed an antral mass involving the gastric wall associated with ulceration and thickening. 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 Her major complaints are that of abdominal distension, pain and nausea. Plan 1. 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 She has bowel obstruction or partial bowel obstruction at the level of the antrum due to the primary tumor as well as what appears to be small bowel partial obstruction due to peritoneal carcinomatosis. She is presently on TPN and is also has an NG tube to intermittent wall suction. She was treated with palliative systemic therapy with FOLFOX to help debulk her tumor to relieve some of her gastric symptoms of obstruction; cycle 1 day 1 was 06/12/2017, infusion completed on 06/14/2017. I have requested HER-2/cristina staining on her disease; results are pending. Should she have HER-2 amplification she she would be a candidate for combination systemic chemotherapy with trastuzumab. 2. Persistent partial bowel obstruction: Her condition was discussed with Dr. Yoo of general surgery; options include palliative gastric bypass surgery which would be quite aggressive and would put the patient at high risk for postsurgical complications versus palliative gastrostomy tube placement with a J -tube placement for nutrition versus continued observation in the hopes that her disease will progress with chemotherapy and some degree of bowel motility will be resolved. I would like to continue monitoring her at least for the next 24-48 hours, there is some hint of improved abdominal pain as reported by the patient this morning. 3. Persistent tachycardia: On rate control, cardiology's assistance appreciated. Continue ongoing care. Memo Davis MD Jun 15, 2017 08:48
[2017-06-15] MEDS: ONDANSETRON HCL 4 MG/2 ML VIAL IV PUSH PRN ×3 (10:43→21:52)
--- NOTE | 2017-06-15 16:38 | HHI.PR ---
Subjective Remarks No new complaints. Pain is better controlled. Objective Vitals Vital Signs Date Time Temp Pulse Resp B/P (MAP) Pulse Ox O2 Delivery O2 Flow Rate FiO2 06/15/17 11:29 98.0 133 18 138/83 (101) 96 06/15/17 11:08 Nasal Cannula 4.00 06/15/17 08:19 97.0 139 18 156/88 (110) 97 06/15/17 08:00 137 06/15/17 04:05 117 06/15/17 04:02 98.6 117 18 145/91 (109) 97 06/15/17 03:39 114 18 148/85 (106) 97 06/15/17 03:25 115 18 142/100 (114) 97 06/15/17 03:07 98.7 138 18 143/103 (116) 95 06/15/17 00:33 98.5 136 20 144/83 (103) 96 06/14/17 23:56 129 06/14/17 22:50 122 18 146/97 (113) 96 06/14/17 22:28 118 06/14/17 22:24 116 18 120/83 (95) 96 06/14/17 22:12 119 20 151/91 (111) 96 06/14/17 22:01 138 20 131/82 (98) 06/14/17 20:51 99.0 144 20 158/96 (116) 95 06/14/17 20:02 138 06/14/17 17:29 98.4 135 20 141/106 (118) 97 06/14/17 17:15 95 Nasal Cannula 4.00 06/15/17 06/15/17 06/16/17 15:00 23:00 07:00 Output Total 400 ml Balance -400 ml Gastric Drainage Total 400 ml Result Diagram: 06/15/17 0345 06/15/17 0345 Imaging Last Impressions Abdomen Biopsy CT 06/04/17 0000 Signed Impressions: Service Date/Time: Sunday, June 04, 2017 14:57 - CONCLUSION: Uncomplicated CT guided biopsy of the omentum. Chilango Shaw MD Liver Ultrasound 06/02/17 0000 Signed Impressions: Service Date/Time: Friday, June 02, 2017 23:21 - CONCLUSION: 1. Cirrhosis 2. Possible mass right lobe of the liver. MRI is recommended for further evaluation if clinically indicated. 3. Moderate ascites Mert Paige MD Chest X-Ray 05/31/17 1557 Signed Impressions: Service Date/Time: Wednesday, May 31, 2017 16:05 - CONCLUSION: No acute disease. Ivan Lowe MD Abdomen/Pelvis CT 05/31/17 1403 Signed Impressions: Service Date/Time: Wednesday, May 31, 2017 14:41 - CONCLUSION: Ascites appears complex new from 03/23/17. Other than liver disease I don't see an etiology for such. If paracentesis is contemplated fluid should be sent for cytology. Tom Kellogg MD FACRADDENDU: The above was reviewed. Of note, the patient is a stable 2 cm lesion in the medial aspect of the right hepatic lobe which shows rim enhancement, most characteristic of a benign hemangioma. Re\re aerating the above, there is stranding in the omentum which appears to be isolated. There is no associated anasarca or fluid in the mesenteric leaves. This appears to be a process isolated to the omentum itself. Although there are no discrete soft tissue lesions, findings could represent an interstitial or lymphatic type neoplastic process. Omental biopsy could be considered for further characterization. Jonathan Adame MD Cyst Biopsy Asp-Paracentesis US 05/31/17 0000 Signed Impressions: Service Date/Time: Wednesday, May 31, 2017 16:43 - CONCLUSION: Uncomplicated ultrasound guided paracentesis. Minimal fluid aspirated. 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 - Pt presented to the ED with complaints of worsening abdominal pain and distension. She states that she has been having issues with abd pain for the last 2 months. For the last 2 weeks she has been having increased generalized abd pain and distension which has been significantly worse over the last 2 days. - CT Abd/pelvis revealed ascites appears complex and new from 03/23/17. - She was previously seen in the ED on 03/[address] abd/pelvis at that time noted an 18mm lesion in the right lobe of the liver, with features favoring hemangioma. She was sent for followup as an outpt with GI. She had an MRI Abdomen W/O Contrast (05/13/17) with benign hemangioma in the caudate lobe of the liver corresponding to the lesion identified on CT otherwise normal examination. - Outpt workup with GI in April 2017 revealed positive ASMA, positive RACHELE, and RODRIGUEZ FibroSURE with fibrosis score of 0.04 (No fibrosis), Steatosis score of 0.78/S3 (marked or severe steatosis). Viral Hepatitis was negative. IgG subclasses were WNL, LKM Ab negative, AMA negative, Iron studies WNL, Ferritin 160 (slightly elevated), Ceruloplasmin WNL. Labs on 05/12/17 with AST 54, ALT 81, AlkPhos 92, Tbili 0.8 , DBili 0.2. autoimmune hepatitis was questioned. - Pt had diagnostic paracentesis on 05/31 with removal of 15cc of fluid - Cell count for the fluid noted WBC count 1657 - Fluid culture with no growth - cytology --> atypical epithelioid cells suspicious for malignancy - Repeat paracentesis 06/04/17 - 3,600ml of ascites removed - Ascitic Cell count: WBC 494, RBC 6525 - Fluid culture shows ngtd - cytology -->suspicious for malignant cells - Pt underwent Omental Biopsy (06/04/17) --> path suspicious for signet cell adenoca - EGD 06/11 --> antral ulcerated mass with near obstruction of outlet. 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 - Heme-Onc, Dr. Davis, is following. - She was started on palliative systemic therapy with FOLFOX to help debulk her tumor to relieve some of her gastric symptoms of obstruction - She received cycle 1 day 1 was 06/12/2017. - NGT placed for decompression for malignant bowel obstruction - General Surgery was consulted but its felt that currently the pt will not benefit from J tube and she will be unable to undergo enteral nutrition. - PICC line placed 06/11 and pt is on TPN - Pt developed sinus tachycardia with rates into the 140's, possibly secondary to physiological response related to her malignant/obstructive process. She was on Cardizem gtt with supplemental Lopressor IV. The Cardizem gtt has been stopped. - Cont. Lopressor 5mg IV Q6H for HR control. - pain better controlled today on fentanyl 25 mcg transdermal - Case d/w Dr. Davis (06/15). He will d/w Dr. Kaplan about placement of GJ tube - DVT prophylaxis with Lovenox (2) Sinus tachycardia ICD Codes: R00.0 - Tachycardia, unspecified Status: Acute Plan: - physiologic d/t pain and disease process - Pt only able to receive IV medication, see above - comgmt with Cardiology - increased IV lopressor to 5mg q4h (3) Abdominal pain ICD Codes: R10.9 - Unspecified abdominal pain Status: Acute Plan: - See above. (4) Ascites ICD Codes: R18.8 - Other ascites Status: Acute Plan: - See above (5) Hypertension ICD Codes: I10 - Essential (primary) hypertension Status: Chronic Plan: - See above (6) Hyperlipidemia ICD Codes: E78.5 - Hyperlipidemia, unspecified Status: Chronic Plan: - Statin was held as an outpt (7) CAD (coronary artery disease) ICD Codes: I25.10 - Atherosclerotic heart disease of [place] coronary artery without angina pectoris Status: Chronic Plan: - Pt with hx of CAD and NSTEMI in 2010 s/p stent in the RCA (8) Tobacco abuse ICD Codes: Z72.0 - Tobacco use Status: Chronic Problem Qualifiers (1) Abdominal pain: Qualified Codes: R10.84 - Generalized abdominal pain (2) Ascites: Qualified Codes: R18.8 - Other ascites Xu Hoover DO Jun 15, 2017 16:38
[2017-06-15] MEDS ORDERED: GLUCAGON 1 MG/ML VIAL OTHER PRN (16:45)
[2017-06-15] MEDS ORDERED: DEXTROSE 50% IN WATER 50 ML VIAL(D50) IV PUSH PRN (16:45)
[2017-06-15] MEDS: ASPIRIN EC 81 MG TABEC PO SCH (21:00)
[2017-06-15] MEDS: FAT EMULSION 20% INJ 250 ML (@10 mls/hr) IV-CENTRAL SCH (22:03)
[2017-06-15] MEDS: CLINIMIX E 5/25 2000 mL- >42 mls/hr IV-CENTRAL SCH ×3 (22:03)
[2017-06-16] VITALS (16 sets, daily range): BP systolic 116–158; BP diastolic 84–97; PULSE 113–134; RESP 12–20; TEMP 97–99; O2SAT 90–98
[2017-06-16] MEDS: HYDROmorphone HCL PF 1 MG/ML VIAL IV PUSH PRN ×7 (01:01→23:56)
[2017-06-16] MEDS: METOPROLOL TARTRATE 5 MG/5 ML VIAL IV PUSH SCH ×2 (02:11→06:11)
[2017-06-16] MEDS: ONDANSETRON HCL 4 MG/2 ML VIAL IV PUSH PRN ×3 (04:43→23:54)
[2017-06-16] MEDS: METOCLOPRAMIDE HCL 10 MG/2 ML VIAL IV PUSH SCH ×3 (06:11→20:52)
--- NOTE | 2017-06-16 07:33 | HHI.PR ---
Subjective Remarks No chest pain, shortness breath, or palpitations. She did notice some swelling in her upper left thigh with a negative ultrasound. Objective Vitals Vital Signs Date Time Temp Pulse Resp B/P (MAP) Pulse Ox O2 Delivery O2 Flow Rate FiO2 06/16/17 06:15 116 06/16/17 04:44 97.0 134 18 158/97 (117) 98 06/16/17 00:50 97.0 134 16 116/95 (102) 96 06/15/17 20:30 97.1 135 18 137/94 (108) 94 06/15/17 20:30 135 06/15/17 17:43 94 Nasal Cannula 4.00 06/15/17 17:05 98.6 141 18 140/92 (108) 94 06/15/17 11:29 98.0 133 18 138/83 (101) 96 06/15/17 11:08 Nasal Cannula 4.00 06/15/17 08:19 97.0 139 18 156/88 (110) 97 06/15/17 08:00 137 I/O 06/15/17 06/15/17 06/15/17 06/16/17 06/16/17 06/16/17 07:00 15:00 23:00 07:00 15:00 23:00 Intake Total 763 ml 1505.5 ml 1222 ml Output Total 1000 ml 400 ml 850 ml Balance -237 ml -400 ml 1505.5 ml 372 ml Intake Oral 330 ml IV Total 763 ml 1505.5 ml 892 ml Output Urine Total 925 ml 600 ml Gastric Drainage Total 75 ml 400 ml 250 ml Result Diagram: 06/15/17 0345 06/15/17 0345 Imaging Last Impressions Chest X-Ray 06/14/17 0000 Signed Impressions: Service Date/Time: Wednesday, June 14, 2017 17:04 - CONCLUSION: Stable chest x-ray with a small to moderate size left pleural effusion with associated volume loss and/or consolidation. Chilango Shaw MD Abdomen X-Ray 06/14/17 0000 Signed Impressions: Service Date/Time: Wednesday, June 14, 2017 13:22 - CONCLUSION: 1. Nasogastric tube distal tip in the gastric body. 2. Stable small to moderate size left pleural effusion. Chilango Shaw MD Abdomen Ultrasound 06/14/17 0000 Signed Impressions: Service Date/Time: Wednesday, June 14, 2017 09:29 - CONCLUSION: Small volume of free fluid is present within the abdomen or pelvis. Chilango Shaw MD Lower Extremity Ultrasound 06/12/17 0000 Signed Impressions: Service Date/Time: Monday, June 12, 2017 14:04 - CONCLUSION: Normal examination. Ron Kim MD Abdomen/Pelvis CT 06/09/17 0000 Signed Impressions: Service Date/Time: Friday, June 09, 2017 12:50 - CONCLUSION: 1. Diffuse abdominal ascites. With omental thickening. Ascites could either be from cirrhotic changes or peritoneal carcinomatosis. 2. No findings to indicate bowel obstruction. 3. Small bilateral effusions with dependent atelectasis. Xavier Kellogg MD Paracentesis 06/04/17 0000 Signed Impressions: Service Date/Time: Sunday, June 04, 2017 14:57 - CONCLUSION: Uncomplicated CT Guided paracentesis with removal of 3.6 L of fluid. Sample was saved and sent to the lab for evaluation. Chilango Shaw MD Abdomen Biopsy CT 06/04/17 0000 Signed Impressions: Service Date/Time: Sunday, June 04, 2017 14:57 - CONCLUSION: Uncomplicated CT guided biopsy of the omentum. Chilango Shaw MD Liver Ultrasound 06/02/17 0000 Signed Impressions: Service Date/Time: Friday, June 02, 2017 23:21 - CONCLUSION: 1. Cirrhosis 2. Possible mass right lobe of the liver. MRI is recommended for further evaluation if clinically indicated. 3. Moderate ascites Mert Paige MD Cyst Biopsy Asp-Paracentesis US 05/31/17 0000 Signed Impressions: Service Date/Time: Wednesday, May 31, 2017 16:43 - CONCLUSION: Uncomplicated ultrasound guided paracentesis. Minimal fluid aspirated. Jonathan Adame MD Objective Remarks GENERAL: Well-developed well-nourished. In no acute distress. NECK: No carotid bruits. No JVD. CARDIOVASCULAR: Tachycardic rate and regular rhythm. No murmur appreciated. RESPIRATORY: No accessory muscle use. Clear to auscultation. Diminished breath sounds in the left lung base. MUSCULOSKELETAL: No clubbing or cyanosis. No edema. NEUROLOGICAL: Awake and alert. Normal speech. A/P Problem List: (1) Signet-ring cell carcinoma of stomach ICD Code: C16.9 - Malignant neoplasm of stomach, unspecified Status: Acute (2) Sinus tachycardia ICD Code: R00.0 - Tachycardia, unspecified Status: Acute (3) Abdominal pain ICD Code: R10.9 - Unspecified abdominal pain Status: Acute (4) Ascites ICD Code: R18.8 - Other ascites Status: Acute (5) Hypertension ICD Code: I10 - Essential (primary) hypertension Status: Chronic (6) Hyperlipidemia ICD Code: E78.5 - Hyperlipidemia, unspecified Status: Chronic (7) CAD (coronary artery disease) ICD Code: I25.10 - Atherosclerotic heart disease of [place] coronary artery without angina pectoris Status: Chronic (8) Tobacco abuse ICD Code: Z72.0 - Tobacco use Status: Chronic Assessment and Plan 52-year-old woman who was admitted to the hospital with abdominal pain, nausea, vomiting and abdominal distension. The patient has had evidence for possible carcinoma of the stomach with metastasis accounting for her abdominal discomfort. She has developed a sinus tachycardia and has been placed on IV Lopressor to try to suppress her heart rates. No apparent recurrence of her anginal type pain has been present. Sinus tachycardia: EKG shows sinus tachycardia with rate 127. Troponin is negative. Echocardiogram reveals normal LV function. Heart rate elevation likely secondary to underlying disease process. No further recommendations from cardiology standpoint, we'll sign off at this time, please call with any questions. Problem Qualifiers (1) Abdominal pain: Qualified Codes: R10.84 - Generalized abdominal pain (2) Ascites: Qualified Codes: R18.8 - Other ascites [place] Jun 16, 2017 07:33
--- NOTE | 2017-06-16 07:51 | PD.ONC.PN ---
Subjective Subjective Remarks Pt seen and examined, labs, medications and vitals reviewed. Case discussed with hospitalist and general surgery team. She continues to have ABD pain and distention, no flatus or BMs. Remains on TPN , she also has sustained tachycardia. Her pain is better controlled with the fentanyl patch, she does not require as many doses of breakthrough opioid doses. Objective Data Date Time Temp Pulse Resp B/P (MAP) Pulse Ox O2 Delivery O2 Flow Rate FiO2 06/16/17 06:15 116 06/16/17 04:44 97.0 134 18 158/97 (117) 98 06/16/17 00:50 97.0 134 16 116/95 (102) 96 06/15/17 20:30 97.1 135 18 137/94 (108) 94 06/15/17 20:30 135 06/15/17 17:43 94 Nasal Cannula 4.00 06/15/17 17:05 98.6 141 18 140/92 (108) 94 06/15/17 11:29 98.0 133 18 138/83 (101) 96 06/15/17 11:08 Nasal Cannula 4.00 06/15/17 08:19 97.0 139 18 156/88 (110) 97 06/15/17 08:00 137 06/16/17 06/16/17 06/16/17 07:00 15:00 23:00 Intake Total 1222 ml Output Total 850 ml Balance 372 ml Result Diagram: 06/15/17 0345 06/15/17 0345 Administered Medications Medications (Trade) Dose Ordered Sig/Nelda Route PRN Reason Start Time Stop Time Status Last Admin Dose Admin Sodium Chloride (NS Flush) 2 ml UNSCH PRN IV FLUSH FLUSH AFTER USING IV ACCESS 05/31/17 16:00 06/15/17 03:23 Sodium Chloride (NS Flush) 2 ml BID IV FLUSH 05/31/17 21:00 06/15/17 21:53 Aspirin (Ecotrin Ec) 81 mg HS PO 05/31/17 21:00 06/12/17 21:00 Miscellaneous (Pill Splitter) 1 ea UNSCH PRN OTHER SEE LABEL COMMENTS 05/31/17 21:00 06/12/17 09:05 Ondansetron HCl (Zofran Inj) 4 mg Q4H PRN IV PUSH NAUSEA 06/07/17 21:00 06/16/17 04:43 Pantoprazole Sodium (Protonix Inj) 40 mg Q12H IV PUSH 06/08/17 21:00 06/15/17 21:52 Fat Emulsion Intravenous 250 ml @ 10 mls/hr Q24H IV-CENTRAL 06/10/17 20:00 06/15/17 22:03 Phenol (Chloraseptic Welch) 2 spray Q2H PRN OROPHARYNG throat pain 06/11/17 12:00 06/12/17 02:47 Hydromorphone HCl (Dilaudid Pf Inj) 1 mg Q3H PRN IV PUSH pain 3-10 06/11/17 12:00 06/16/17 04:44 Sodium Chloride (NS Flush) See Protocol DAILY IV FLUSH 06/12/17 09:00 06/15/17 08:34 Heparin Sodium (Porcine) (Heparin Central Flush) See Protocol DAILY IV FLUSH 06/12/17 09:00 06/15/17 08:34 Sodium Chloride (NS Flush) UNSCH PRN IV FLUSH SEE PROTOCOL TABLE 06/11/17 12:30 06/13/17 23:18 Multivitamins 10 ml/Folic Acid 1 mg/Amino Acids/ Electrolytes/ Dextrose 2,010.2 ml @ 75 mls/hr Q24H IV-CENTRAL 06/12/17 20:00 06/15/17 22:03 Metoclopramide HCl (Reglan Inj) 5 mg Q8HR IV PUSH 06/13/17 14:00 06/16/17 06:11 Enoxaparin Sodium (Lovenox Inj) 40 mg Q24H SQ 06/13/17 08:15 06/15/17 08:35 Ciprofloxacin/ Dextrose 200 ml @ 200 mls/hr Q12H IV 06/13/17 12:00 06/15/17 22:29 Lorazepam (Ativan Inj) 0.5 mg Q6H PRN IV PUSH nausea/anxiety 06/13/17 14:45 06/14/17 08:12 Fentanyl (Duragesic 25 Mcg Patch.72 Hr) 1 patch Q3D T-DERMAL 06/14/17 17:00 06/14/17 18:18 Insulin Aspart (NovoLOG SUPPLEMENTAL SCALE) 1 ACHS SLIDING SCALE SQ 06/15/17 17:00 06/15/17 22:13 Metoprolol Tartrate (Lopressor Inj) 5 mg Q4H IV PUSH 06/15/17 19:00 06/16/17 06:11 Objective Remarks Ms. Vicente is a middle-aged female. She is sitting up in bed. she appears to be Uncomfortable, she is arousable but appears to be very tired, somewhat sedated as well. She seems to drift in and out of consciousness as I talked to her is morning. HEENT: Head atraumatic, normocephalic, conjunctivae are mildly pale, sclerae are anicteric, EOMI, PERRLA, oral exam no pharyngeal erythema. NECK: No palpable cervical or supraclavicular lymphadenopathy. RESPIRATORY: Decreased bibasilar breath sounds. Good air movement over the upper and middle lung zones. No wheezing or rhonchi. CARDIOVASCULAR: tachycardia, regular, S1-S2. No obvious murmurs, rubs or gallops. Heart rate sustained in the 120-130 bpm range. ABDOMEN: Distended abdomen, firm, tender to mild palpation, no obvious organ enlargement noted. Free fluid is noted within the abdomen. LOWER EXTREMITIES: Bilateral pretibial edema, no calf tenderness. MUSCULOSKELETAL: Good muscle mass, tone and strength. REEL CUTTER: No focal sensory motor deficits. Assessment/Plan Assessment Ms. Vicente is a 52-year-old female with a 2.5 month history of progressive epigastric pain, nausea, vomiting and abdominal distension. She was noted on imaging studies on 06/10/2017 to have omental thickening and ascites. Omental biopsy revealed findings highly concerning for a high-grade adenocarcinoma with signet cell features. An EGD ensued and the EGD revealed an antral mass involving the gastric wall associated with ulceration and thickening. 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 Her major complaints are that of abdominal distension, pain and nausea. Plan 1. 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 She has bowel obstruction or partial bowel obstruction at the level of the antrum due to the primary tumor as well as what appears to be small bowel obstruction due to peritoneal carcinomatosis. She is presently on TPN and is also has an NG tube to intermittent wall suction for gastric decompression. She was treated with palliative systemic therapy with FOLFOX to help debulk her tumor to relieve some of her gastric symptoms of obstruction; cycle 1 day 1 was 06/12/2017, infusion completed on 06/14/2017. I have requested HER-2/cristina staining on her disease; results are pending. Should she have HER-2 amplification she she would be a candidate for combination systemic chemotherapy with trastuzumab. 2. Persistent partial bowel obstruction: Her condition was discussed with Dr. Yoo of general surgery; treatment options are limited at this time. After discussion with Gen surgery; we will proceed with a PEG tube placement at this time for decompression. It appears her small bowel has been rendered non functional due to extensive peritoneal carcinomatosis; therefore placement of a J-tube will likely not be of benefit at this time. Our hope is that the chemotherapy will sufficiently debulk her disease and allow resumption of bowel function. 3. Persistent tachycardia: Sinus tachycardia. Continue ongoing care. Memo Davis MD Jun 16, 2017 07:51
--- NOTE | 2017-06-16 08:57 | HHI.PR ---
Subjective Remarks trying to take liquids Objective Vitals heart reg lung diminished baes abd no bs/nd ext edema ngt to liws Vital Signs Date Time Temp Pulse Resp B/P (MAP) Pulse Ox O2 Delivery O2 Flow Rate FiO2 06/16/17 08:11 128 12 130/90 (103) 96 06/16/17 06:15 116 06/16/17 04:44 97.0 134 18 158/97 (117) 98 06/16/17 00:50 97.0 134 16 116/95 (102) 96 06/15/17 20:30 97.1 135 18 137/94 (108) 94 06/15/17 20:30 135 06/15/17 17:43 94 Nasal Cannula 4.00 06/15/17 17:05 98.6 141 18 140/92 (108) 94 06/15/17 11:29 98.0 133 18 138/83 (101) 96 06/15/17 11:08 Nasal Cannula 4.00 Result Diagram: 06/15/17 0345 06/15/17 0345 Imaging Last Impressions Abdomen Biopsy CT 06/04/17 0000 Signed Impressions: Service Date/Time: Sunday, June 04, 2017 14:57 - CONCLUSION: Uncomplicated CT guided biopsy of the omentum. Chilango Shaw MD Liver Ultrasound 06/02/17 0000 Signed Impressions: Service Date/Time: Friday, June 02, 2017 23:21 - CONCLUSION: 1. Cirrhosis 2. Possible mass right lobe of the liver. MRI is recommended for further evaluation if clinically indicated. 3. Moderate ascites Mert Paige MD Chest X-Ray 05/31/17 1557 Signed Impressions: Service Date/Time: Wednesday, May 31, 2017 16:05 - CONCLUSION: No acute disease. Ivan Lowe MD Abdomen/Pelvis CT 05/31/17 1403 Signed Impressions: Service Date/Time: Wednesday, May 31, 2017 14:41 - CONCLUSION: Ascites appears complex new from 03/23/17. Other than liver disease I don't see an etiology for such. If paracentesis is contemplated fluid should be sent for cytology. Tom Kellogg MD FACRADDENDUM: The above was reviewed. Of note, the patient is a stable 2 cm lesion in the medial aspect of the right hepatic lobe which shows rim enhancement, most characteristic of a benign hemangioma. Re\re aerating the above, there is stranding in the omentum which appears to be isolated. There is no associated anasarca or fluid in the mesenteric leaves. This appears to be a process isolated to the omentum itself. Although there are no discrete soft tissue lesions, findings could represent an interstitial or lymphatic type neoplastic process. Omental biopsy could be considered for further characterization. Jonathan Adame MD Cyst Biopsy Asp-Paracentesis US 05/31/17 0000 Signed Impressions: Service Date/Time: Wednesday, May 31, 2017 16:43 - CONCLUSION: Uncomplicated ultrasound guided paracentesis. Minimal fluid aspirated. 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 - Pt presented to the ED with complaints of worsening abdominal pain and distension. She states that she has been having issues with abd pain for the last 2 months. For the last 2 weeks she has been having increased generalized abd pain and distension which has been significantly worse over the last 2 days. - CT Abd/pelvis revealed ascites appears complex and new from 03/23/17. - She was previously seen in the ED on 03/[address] abd/pelvis at that time noted an 18mm lesion in the right lobe of the liver, with features favoring hemangioma. She was sent for followup as an outpt with GI. She had an MRI Abdomen W/O Contrast (05/13/17) with benign hemangioma in the caudate lobe of the liver corresponding to the lesion identified on CT otherwise normal examination. - Outpt workup with GI in April 2017 revealed positive ASMA, positive RACHELE, and RODRIGUEZ FibroSURE with fibrosis score of 0.04 (No fibrosis), Steatosis score of 0.78/S3 (marked or severe steatosis). Viral Hepatitis was negative. IgG subclasses were WNL, LKM Ab negative, AMA negative, Iron studies WNL, Ferritin 160 (slightly elevated), Ceruloplasmin WNL. Labs on 05/12/17 with AST 54, ALT 81, AlkPhos 92, Tbili 0.8 , DBili 0.2. autoimmune hepatitis was questioned. - Pt had diagnostic paracentesis on 05/31 with removal of 15cc of fluid - Cell count for the fluid noted WBC count 1657 - Fluid culture with no growth - cytology --> atypical epithelioid cells suspicious for malignancy - Repeat paracentesis 06/04/17 - 3,600ml of ascites removed - Ascitic Cell count: WBC 494, RBC 6525 - Fluid culture shows ngtd - cytology -->suspicious for malignant cells - Pt underwent Omental Biopsy (06/04/17) --> path suspicious for signet cell adenoca - EGD 06/11 --> antral ulcerated mass with near obstruction of outlet. 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 - Heme-Onc, Dr. Davis, is following. - She was started on palliative systemic therapy with FOLFOX to help debulk her tumor to relieve some of her gastric symptoms of obstruction - She received cycle 1 day 1 was 06/12/2017. - NGT placed for decompression for malignant bowel obstruction - General Surgery was consulted but its felt that currently the pt will not benefit from J tube and she will be unable to undergo enteral nutrition. - PICC line placed 06/11 and pt is on TPN - Pt developed sinus tachycardia with rates into the 140's, possibly secondary to physiological response related to her malignant/obstructive process. She was on Cardizem gtt with supplemental Lopressor IV. The Cardizem gtt has been stopped. - pain better controlled today on fentanyl 25 mcg transdermal - Case d/w Dr. Davis ...plan to ask IR for g tube. no j tube. plan for tpn even after d/c. await response to chemo given every 14day. might need snf. will try to convert iv to po crushed lopressor as we can't get her to snf with iv lopressor. -add basal insulin. ssi -pt retaining fluid. lasix. monitor na/cr - DVT prophylaxis with Lovenox (2) Sinus tachycardia ICD Codes: R00.0 - Tachycardia, unspecified Status: Acute Plan: - physiologic d/t pain and disease process - Pt only able to receive IV medication, see above - comgmt with Cardiology - increased IV lopressor to 5mg q4h (3) Abdominal pain ICD Codes: R10.9 - Unspecified abdominal pain Status: Acute Plan: - See above. (4) Ascites ICD Codes: R18.8 - Other ascites Status: Acute Plan: - See above (5) Hypertension ICD Codes: I10 - Essential (primary) hypertension Status: Chronic Plan: - See above (6) Hyperlipidemia ICD Codes: E78.5 - Hyperlipidemia, unspecified Status: Chronic Plan: - Statin was held as an outpt (7) CAD (coronary artery disease) ICD Codes: I25.10 - Atherosclerotic heart disease of [place] coronary artery without angina pectoris Status: Chronic Plan: - Pt with hx of CAD and NSTEMI in 2010 s/p stent in the RCA (8) Tobacco abuse ICD Codes: Z72.0 - Tobacco use Status: Chronic Problem Qualifiers (1) Abdominal pain: Qualified Codes: R10.84 - Generalized abdominal pain (2) Ascites: Qualified Codes: R18.8 - Other ascites Zach Briceno MD Jun 16, 2017 08:57
[2017-06-16] MEDS: INSULIN ASPART SUPPLEMENTAL SCALE SQ SCH ×3 (08:59→21:03)
[2017-06-16] MEDS ORDERED: FUROSEMIDE 20 MG/2 ML VIAL IV PUSH ONE (09:00)
[2017-06-16] MEDS: PANTOPRAZOLE SODIUM 40 MG VIAL IV PUSH SCH ×2 (09:00→20:53)
[2017-06-16] MEDS: SODIUM CHLORIDE 0.9% FLUSH 10 ML FLUSH IV FLUSH SCH ×3 (09:00→20:58)
[2017-06-16] MEDS: INSULIN DETEMIR 100 UNITS/ML VIAL SQ SCH ×2 (09:12→21:02)
[2017-06-16] MEDS: METOPROLOL TARTRATE 50 MG TAB PO SCH ×3 (12:00→23:54)
[2017-06-16] MEDS: CIPROFLOXACIN 400 MG PREMIX 200 ML IV SCH ×2 (12:00→22:40)
[2017-06-16] MEDS ORDERED: MIDAZOLAM HCL 2 MG/2 ML VIAL ONE ×3 (15:05→15:41)
--- NOTE | 2017-06-16 16:12 | PD.RAD ---
Post Procedure Progress Note Pre Procedure Diagnosis: (1) Signet-ring cell carcinoma of stomach Post Procedure Diagnosis: (1) Signet-ring cell carcinoma of stomach Procedure Date: Jun 16, 2017 Supervising Radiologist: Carl Lamar JR Proceduralist/Assist: Kristian Garrison, RT(R), Sue Cintron, RT(R) Anesthesia: Conscious Sedation Plan of Activity Patient to Unit: ROPU Patient Condition: Good See PACS Report for procedural detail/treatment Feeding Tube Gastrostomy Placement Citizen Of The [place]: 18 Findings: Stomach is difficulty to distend. The wall is quite stiff secondary to underlying malignancy. Small window noted for G tube placement. G tube placed and in good position. Plan T fasteners will fall off spontaneusly in 2-3 weeks. Jr Willard.,Carl Madrid MD Jun 16, 2017 16:12
[2017-06-16] MEDS: METOPROLOL TARTRATE 5 MG/5 ML VIAL IV PUSH PRN ×2 (16:31→22:32)
[2017-06-16] MEDS ORDERED: IOHEXOL 350 MG/ML 50 ML BTL (for RAD DIAG) G-TUBE ONE (16:35)
--- NOTE | 2017-06-16 17:41 | RADRPT ---
EXAM DATE/TIME: 06/16/2017 15:58 [facility] COMPARISON: No previous studies available for comparison. INDICATIONS : Patient presents with Gastric Cancer in need of Gastronomy tube placement. MEDICAL HISTORY : HTN CAD and history of NSTEMI in 2010 Hyperlipidemia Hepatic hemangioma RODRIGUEZ SURGICAL HISTORY : PTCA with stent placement in RCA 2010 Cesarian section ENCOUNTER: Initial ACUITY: 2 weeks PAIN SCORE: 0/10 LOCATION: N/A FLUORO TIME: 2.9 minutes IMAGE SERIES: 1 SEDATION TIME: 30 minutes CONTRAST: 10 cc Omnipaque (iohexol) 350 MEDICATION(S): 1.) 5 mg midazolam (Versed) IV 2.) 250 mcg Fentanyl (Sublimaze) IV DEVICE(S): 1.) 18 Fr gastrostomy tube PROCEDURE : 1. Limited abdominal ultrasound. 2. Fluoroscopically guided gastrostomy tube placement. 3. Conscious sedation with continuous EKG and oximetry monitoring. The risks, benefits and alternatives to the procedure were explained and verbal and written consent w as obtained. The site was prepped in sterile fashion. Full sterile technique was used, including ca p, mask, sterile gloves and gown and a large sterile sheet. Hand hygiene and 2% chlorhexidine and/or betadine/alcohol prep was utilized per protocol for cutaneous antisepsis. The skin and subcutaneous tissues were infiltrated with local anesthetic solution. Sterile gel and sterile probe cover were u tilized for ultrasound guidance. Ultrasound was used to kai the position of the liver. The stomach was insufflated with room air und er fluoroscopic control. The stomach is quite stiff and difficult to distend secondary to the underly ing malignancy. A very small window for access was seen. Three percutaneous fasteners were placed to secure the anterior gastric wall. A small incision was made between the fasteners. The stomach was accessed with an 18 gauge needle. A n 0.035 wire was advanced into the small bowel. The tract was dilated. The gastrostomy tube was int roduced through a peel-away sheath. The position was confirmed with an injection of contrast. Conscious sedation was performed with the prescribed dosages and duration as above in the presence of an independent trained radiology nurse to assist in the monitoring of the patient. EKG and oximetry remained stable throughout the procedure. The patient tolerated the procedure well and there were n o complications. The patient was sent to post anesthesia recovery in stable condition. CONCLUSION: Uncomplicated gastrostomy tube placement as above. Carl Lamar Jr., MD on June 16, 2017 at 17:39 Board Certified Radiologist. This report was verified electronically.
[2017-06-16] MEDS: CLINIMIX E 5/25 2000 mL- >42 mls/hr IV-CENTRAL SCH ×3 (20:57)
[2017-06-16] MEDS: FAT EMULSION 20% INJ 250 ML (@10 mls/hr) IV-CENTRAL SCH (20:57)
[2017-06-16] MEDS: ASPIRIN EC 81 MG TABEC PO SCH (21:00)
[2017-06-17] VITALS (10 sets, daily range): BP systolic 131–152; BP diastolic 76–88; PULSE 104–134; RESP 17–22; TEMP 97.8–99; O2SAT 95–98
[2017-06-17] MEDS: HYDROmorphone HCL PF 1 MG/ML VIAL IV PUSH PRN ×6 (02:46→21:18)
[2017-06-17 03:26] LABS: AUTOMATED NEUTROPHIL # 12.6 TH/MM3 (1.8-7.7); BASOPHIL % 0.2 % (0.0-2.0); EOSINOPHIL # 0.1 TH/MM3 (0-0.4); EOSINOPHIL % 0.7 % (0.0-4.0); HEMO FLAGS DIFF FINAL; LYMPH % 11.6 % (9.0-44.0); LYMPHOCYTE # 1.7 TH/MM3 (1.0-4.8); MEAN CELL VOLUME 90.4 FL (80.0-100.0); MEAN CORPUSCULAR HEMOGLOBIN 30.1 PG (27.0-34.0); MEAN CORPUSCULAR HGB CONC 33.4 % (32.0-36.0); MONO % 2.3 % (0.0-8.0); NEUT % 85.2 % (16.0-70.0); PLATELET COUNT 153 TH/MM3 (150-450); PROTHROMBIN TIME - PATIENT 11.6 SEC (9.8-11.6); RED BLOOD COUNT 3.43 MIL/MM3 (4.00-5.30); RED CELL DISTRIBUTION WIDTH 14.8 % (11.6-17.2); WHITE BLOOD COUNT 14.8 TH/MM3 (4.0-11.0)
[2017-06-17 03:35] LABS: ALT (GPT) 18 U/L (10-53); ANION GAP 7 MEQ/L (5-15); AST (GOT) 18 U/L (15-37); BICARBONATE 30.5 MEQ/L (21.0-32.0); BLOOD UREA NITROGEN 15 MG/DL (7-18); CHLORIDE 94 MEQ/L (98-107); GLOMERULAR FILTRATION RATE 107 ML/MIN (>89); MAGNESIUM 1.9 MG/DL (1.5-2.5); POTASSIUM 3.6 MEQ/L (3.5-5.1); SODIUM (NA) 131 MEQ/L (136-145)
[2017-06-17 03:38] LABS: ALKALINE PHOSPHATASE 81 U/L (45-117); TOTAL BILIRUBIN ADULT 0.5 MG/DL (0.2-1.0)
[2017-06-17] MEDS: METOCLOPRAMIDE HCL 10 MG/2 ML VIAL IV PUSH SCH ×3 (05:45→21:12)
[2017-06-17] MEDS: METOPROLOL TARTRATE 50 MG TAB PO SCH ×4 (05:45→23:20)
[2017-06-17] MEDS ORDERED: FUROSEMIDE 20 MG/2 ML VIAL IV PUSH ONE (07:30)
[2017-06-17] MEDS ORDERED: POTASSIUM CHLOR 20 MEQ PREMIX 100 ML IV ONE (07:30)
--- NOTE | 2017-06-17 08:29 | PD.ONC.PN ---
Subjective Subjective Remarks Patient seen and examined, vital signs, labs medications and imaging studies reviewed, she did undergo PEG tube placement yesterday, her NG tube was removed this morning in my presence. She reports severe pain at the site of PEG tube insertion. Patient reports her abdomen continues to feel distended but the pain is better controlled. Objective Data Date Time Temp Pulse Resp B/P (MAP) Pulse Ox O2 Delivery O2 Flow Rate FiO2 06/17/17 08:23 97 Nasal Cannula 2.50 06/17/17 03:02 97.8 120 17 131/84 (100) 98 06/16/17 23:56 98.2 124 16 152/92 (112) 97 06/16/17 21:00 121 06/16/17 20:00 98.2 124 18 157/92 (113) 97 06/16/17 18:16 145/84 (104) 06/16/17 17:34 99.0 118 16 150/93 (112) 96 06/16/17 17:12 96 Nasal Cannula 4.00 06/16/17 17:05 113 20 127/93 (104) 97 06/16/17 16:30 113 20 135/96 (109) 95 06/16/17 16:20 133 20 135/95 (108) 91 06/16/17 16:05 133 20 139/96 (110) 90 06/16/17 13:34 Nasal Cannula 4.00 06/16/17 12:00 98.5 130 16 129/87 (101) 06/17/17 06/17/17 06/17/17 07:00 15:00 23:00 Intake Total 200 ml Output Total 500 ml Balance -300 ml Result Diagram: 06/17/17 0250 06/17/17 0250 Laboratory Results Laboratory Tests Test 06/17/17 02:50 White Blood Count 14.8 TH/MM3 Red Blood Count 3.43 MIL/MM3 Hemoglobin 10.3 GM/DL Hematocrit 31.0 % Mean Corpuscular Volume 90.4 FL Mean Corpuscular Hemoglobin 30.1 PG Mean Corpuscular Hemoglobin Concent 33.4 % Red Cell Distribution Width 14.8 % Platelet Count 153 TH/MM3 Mean Platelet Volume 8.4 FL Neutrophils (%) (Auto) 85.2 % Lymphocytes (%) (Auto) 11.6 % Monocytes (%) (Auto) 2.3 % Eosinophils (%) (Auto) 0.7 % Basophils (%) (Auto) 0.2 % Neutrophils # (Auto) 12.6 TH/MM3 Lymphocytes # (Auto) 1.7 TH/MM3 Monocytes # (Auto) 0.3 TH/MM3 Eosinophils # (Auto) 0.1 TH/MM3 Basophils # (Auto) 0.0 TH/MM3 CBC Comment DIFF FINAL Differential Comment Prothrombin Time 11.6 SEC Prothromb Time International Ratio 1.0 RATIO Blood Urea Nitrogen 15 MG/DL Creatinine 0.59 MG/DL Random Glucose 320 MG/DL Total Protein 6.3 GM/DL Albumin 2.1 GM/DL Calcium Level 8.3 MG/DL Phosphorus Level 2.4 MG/DL Magnesium Level 1.9 MG/DL Alkaline Phosphatase 81 U/L Aspartate Amino Transf (AST/SGOT) 18 U/L Alanine Aminotransferase (ALT/SGPT) 18 U/L Total Bilirubin 0.5 MG/DL Sodium Level 131 MEQ/L Potassium Level 3.6 MEQ/L Chloride Level 94 MEQ/L Carbon Dioxide Level 30.5 MEQ/L Anion Gap 7 MEQ/L Estimat Glomerular Filtration Rate 107 ML/MIN Triglycerides Level 85 MG/DL Administered Medications Medications (Trade) Dose Ordered Sig/Nelda Route PRN Reason Start Time Stop Time Status Last Admin Dose Admin Sodium Chloride (NS Flush) 2 ml UNSCH PRN IV FLUSH FLUSH AFTER USING IV ACCESS 05/31/17 16:00 06/15/17 03:23 Sodium Chloride (NS Flush) 2 ml BID IV FLUSH 05/31/17 21:00 06/16/17 20:58 Aspirin (Ecotrin Ec) 81 mg HS PO 05/31/17 21:00 06/12/17 21:00 Miscellaneous (Pill Splitter) 1 ea UNSCH PRN OTHER SEE LABEL COMMENTS 05/31/17 21:00 06/12/17 09:05 Ondansetron HCl (Zofran Inj) 4 mg Q4H PRN IV PUSH NAUSEA 06/07/17 21:00 06/16/17 23:54 Pantoprazole Sodium (Protonix Inj) 40 mg Q12H IV PUSH 06/08/17 21:00 06/16/17 20:53 Fat Emulsion Intravenous 250 ml @ 10 mls/hr Q24H IV-CENTRAL 06/10/17 20:00 06/16/17 20:57 Phenol (Chloraseptic Solo) 2 spray Q2H PRN OROPHARYNG throat pain 06/11/17 12:00 06/12/17 02:47 Hydromorphone HCl (Dilaudid Pf Inj) 1 mg Q3H PRN IV PUSH pain 3-10 06/11/17 12:00 06/17/17 05:46 Sodium Chloride (NS Flush) See Protocol DAILY IV FLUSH 06/12/17 09:00 06/16/17 09:00 Heparin Sodium (Porcine) (Heparin Central Flush) See Protocol DAILY IV FLUSH 06/12/17 09:00 06/15/17 08:34 Sodium Chloride (NS Flush) UNSCH PRN IV FLUSH SEE PROTOCOL TABLE 06/11/17 12:30 06/13/17 23:18 Multivitamins 10 ml/Folic Acid 1 mg/Amino Acids/ Electrolytes/ Dextrose 2,010.2 ml @ 75 mls/hr Q24H IV-CENTRAL 06/12/17 20:00 06/16/17 20:57 Metoclopramide HCl (Reglan Inj) 5 mg Q8HR IV PUSH 06/13/17 14:00 06/17/17 05:45 Enoxaparin Sodium (Lovenox Inj) 40 mg Q24H SQ 06/13/17 08:15 Future hold 06/15/17 08:35 Ciprofloxacin/ Dextrose 200 ml @ 200 mls/hr Q12H IV 06/13/17 12:00 06/16/17 22:40 Lorazepam (Ativan Inj) 0.5 mg Q6H PRN IV PUSH nausea/anxiety 06/13/17 14:45 06/14/17 08:12 Fentanyl (Duragesic 25 Mcg Patch.72 Hr) 1 patch Q3D T-DERMAL 06/14/17 17:00 06/14/17 18:18 Insulin Aspart (NovoLOG SUPPLEMENTAL SCALE) 1 ACHS SLIDING SCALE SQ 06/15/17 17:00 06/16/17 21:03 Metoprolol Tartrate (Lopressor Inj) 5 mg Q4H PRN IV PUSH HR > 120 06/16/17 11:00 06/16/17 22:32 Metoprolol Tartrate (Lopressor) 50 mg Q6HR PO 06/16/17 12:00 06/17/17 05:45 Objective Remarks Ms. Vicente is a middle-aged female. She is sitting up in bed. she appears to be Uncomfortable, she is arousable and alert. NG tube has been removed from the left nostril. HEENT: Head atraumatic, normocephalic, conjunctivae are mildly pale, sclerae are anicteric, EOMI, PERRLA, oral exam no pharyngeal erythema. NECK: No palpable cervical or supraclavicular lymphadenopathy. RESPIRATORY: Decreased bibasilar breath sounds. Good air movement over the upper and middle lung zones. No wheezing or rhonchi. CARDIOVASCULAR: tachycardia, regular, S1-S2. No obvious murmurs, rubs or gallops. Heart rate sustained in the 120-130 bpm range. ABDOMEN: Distended abdomen, firm, tender to mild palpation, no obvious organ enlargement noted. Free fluid is noted within the abdomen. Interval placement of a percutaneous gastrostomy tube. The gastrostomy tube is draining gastric contents. LOWER EXTREMITIES: Bilateral pretibial edema, no calf tenderness. MUSCULOSKELETAL: Good muscle mass, tone and strength. LANDING MAN: No focal sensory motor deficits. Assessment/Plan Assessment Ms. Vicente is a 52-year-old female with a 2.5 month history of progressive epigastric pain, nausea, vomiting and abdominal distension. She was noted on imaging studies on 06/10/2017 to have omental thickening and ascites. Omental biopsy revealed findings highly concerning for a high-grade adenocarcinoma with signet cell features. An EGD ensued and the EGD revealed an antral mass involving the gastric wall associated with ulceration and thickening. 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 Her major complaints are that of abdominal distension, pain and nausea. Plan 1. 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 She has bowel obstruction or partial bowel obstruction at the level of the antrum due to the primary tumor as well as what appears to be small bowel obstruction due to peritoneal carcinomatosis. She is presently on TPN and is also has an NG tube to intermittent wall suction for gastric decompression. She was treated with palliative systemic therapy with FOLFOX to help debulk her tumor to relieve some of her gastric symptoms of obstruction; cycle 1 day 1 was 06/12/2017, infusion completed on 06/14/2017. I have requested HER-2/cristina staining on her disease; results are pending. Should she have HER-2 amplification she she would be a candidate for combination systemic chemotherapy with trastuzumab. 2. Persistent bowel obstruction due to gastric outflow obstruction as well as likely diffuse intestinal obstruction due to bulky peritoneal carcinomatosis: Gastrostomy tube placed yesterday for palliative suction. 3. Persistent tachycardia: Sinus tachycardia, on periodic beta blockers. Continue ongoing care. Memo Davis MD Jun 17, 2017 08:29
[2017-06-17] MEDS: INSULIN DETEMIR 100 UNITS/ML VIAL SQ SCH ×2 (08:47→21:11)
[2017-06-17] MEDS: PANTOPRAZOLE SODIUM 40 MG VIAL IV PUSH SCH ×2 (08:47→21:11)
--- NOTE | 2017-06-17 08:57 | HHI.PR ---
Subjective Remarks NERVOUS ABOUT PULLING NGT Objective Vitals ngt to liws heart reg lung diminished bases abd no bs/tender/peg ext edema picc Vital Signs Date Time Temp Pulse Resp B/P (MAP) Pulse Ox O2 Delivery O2 Flow Rate FiO2 06/17/17 08:23 97 Nasal Cannula 2.50 06/17/17 03:02 97.8 120 17 131/84 (100) 98 06/16/17 23:56 98.2 124 16 152/92 (112) 97 06/16/17 21:00 121 06/16/17 20:00 98.2 124 18 157/92 (113) 97 06/16/17 18:16 145/84 (104) 06/16/17 17:34 99.0 118 16 150/93 (112) 96 06/16/17 17:12 96 Nasal Cannula 4.00 06/16/17 17:05 113 20 127/93 (104) 97 06/16/17 16:30 113 20 135/96 (109) 95 06/16/17 16:20 133 20 135/95 (108) 91 06/16/17 16:05 133 20 139/96 (110) 90 06/16/17 13:34 Nasal Cannula 4.00 06/16/17 12:00 98.5 130 16 129/87 (101) Result Diagram: 06/17/17 0250 06/17/17 0250 Imaging Last Impressions Abdomen Biopsy CT 06/04/17 0000 Signed Impressions: Service Date/Time: Sunday, June 04, 2017 14:57 - CONCLUSION: Uncomplicated CT guided biopsy of the omentum. Chilango Shaw MD Liver Ultrasound 06/02/17 0000 Signed Impressions: Service Date/Time: Friday, June 02, 2017 23:21 - CONCLUSION: 1. Cirrhosis 2. Possible mass right lobe of the liver. MRI is recommended for further evaluation if clinically indicated. 3. Moderate ascites Mert Paige MD Chest X-Ray 05/31/17 1557 Signed Impressions: Service Date/Time: Wednesday, May 31, 2017 16:05 - CONCLUSION: No acute disease. Ivan Lowe MD Abdomen/Pelvis CT 05/31/17 1403 Signed Impressions: Service Date/Time: Wednesday, May 31, 2017 14:41 - CONCLUSION: Ascites appears complex new from 03/23/17. Other than liver disease I don't see an etiology for such. If paracentesis is contemplated fluid should be sent for cytology. Tom Kellogg MD FACRADDENDU: The above was reviewed. Of note, the patient is a stable 2 cm lesion in the medial aspect of the right hepatic lobe which shows rim enhancement, most characteristic of a benign hemangioma. Re\re aerating the above, there is stranding in the omentum which appears to be isolated. There is no associated anasarca or fluid in the mesenteric leaves. This appears to be a process isolated to the omentum itself. Although there are no discrete soft tissue lesions, findings could represent an interstitial or lymphatic type neoplastic process. Omental biopsy could be considered for further characterization. Jonathan Adame MD Cyst Biopsy Asp-Paracentesis US 05/31/17 0000 Signed Impressions: Service Date/Time: Wednesday, May 31, 2017 16:43 - CONCLUSION: Uncomplicated ultrasound guided paracentesis. Minimal fluid aspirated. 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 - Pt presented to the ED with complaints of worsening abdominal pain and distension. She states that she has been having issues with abd pain for the last 2 months. For the last 2 weeks she has been having increased generalized abd pain and distension which has been significantly worse over the last 2 days. - CT Abd/pelvis revealed ascites appears complex and new from 03/23/17. - She was previously seen in the ED on 03/[address] abd/pelvis at that time noted an 18mm lesion in the right lobe of the liver, with features favoring hemangioma. She was sent for followup as an outpt with GI. She had an MRI Abdomen W/O Contrast (05/13/17) with benign hemangioma in the caudate lobe of the liver corresponding to the lesion identified on CT otherwise normal examination. - Outpt workup with GI in April 2017 revealed positive ASMA, positive RACHELE, and RODRIGUEZ FibroSURE with fibrosis score of 0.04 (No fibrosis), Steatosis score of 0.78/S3 (marked or severe steatosis). Viral Hepatitis was negative. IgG subclasses were WNL, LKM Ab negative, AMA negative, Iron studies WNL, Ferritin 160 (slightly elevated), Ceruloplasmin WNL. Labs on 05/12/17 with AST 54, ALT 81, AlkPhos 92, Tbili 0.8 , DBili 0.2. autoimmune hepatitis was questioned. - Pt had diagnostic paracentesis on 05/31 with removal of 15cc of fluid - Cell count for the fluid noted WBC count 1657 - Fluid culture with no growth - cytology --> atypical epithelioid cells suspicious for malignancy - Repeat paracentesis 06/04/17 - 3,600ml of ascites removed - Ascitic Cell count: WBC 494, RBC 6525 - Fluid culture shows ngtd - cytology -->suspicious for malignant cells - Pt underwent Omental Biopsy (06/04/17) --> path suspicious for signet cell adenoca - EGD 06/11 --> antral ulcerated mass with near obstruction of outlet. 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 - Heme-Onc, Dr. Davis, is following. - She was started on palliative systemic therapy with FOLFOX to help debulk her tumor to relieve some of her gastric symptoms of obstruction - She received cycle 1 day 1 was 06/12/2017. - NGT placed for decompression for malignant bowel obstruction - General Surgery was consulted but its felt that currently the pt will not benefit from J tube and she will be unable to undergo enteral nutrition. - PICC line placed 06/11 and pt is on TPN - Pt developed sinus tachycardia with rates into the 140's, possibly secondary to physiological response related to her malignant/obstructive process and stopping her chronic bb. She was on Cardizem gtt with supplemental Lopressor IV. The Cardizem gtt has been stopped. po lopressor resumed/crushed..prn iv lopressor - IR placed PEG tube on 06/16. removed ngt on 06/17 - PEG to gravity. - titrated up basal insulin and then add to tpn once controlled. -cont iv lasix and monitor bmp - DVT prophylaxis with Lovenox (2) Sinus tachycardia ICD Codes: R00.0 - Tachycardia, unspecified Status: Acute Plan: - physiologic d/t pain and disease process - Pt only able to receive IV medication, see above - comgmt with Cardiology - increased IV lopressor to 5mg q4h (3) Abdominal pain ICD Codes: R10.9 - Unspecified abdominal pain Status: Acute Plan: - See above. (4) Ascites ICD Codes: R18.8 - Other ascites Status: Acute Plan: - See above (5) Hypertension ICD Codes: I10 - Essential (primary) hypertension Status: Chronic Plan: - See above (6) Hyperlipidemia ICD Codes: E78.5 - Hyperlipidemia, unspecified Status: Chronic Plan: - Statin was held as an outpt (7) CAD (coronary artery disease) ICD Codes: I25.10 - Atherosclerotic heart disease of [place] coronary artery without angina pectoris Status: Chronic Plan: - Pt with hx of CAD and NSTEMI in 2010 s/p stent in the RCA (8) Tobacco abuse ICD Codes: Z72.0 - Tobacco use Status: Chronic Problem Qualifiers (1) Abdominal pain: Qualified Codes: R10.84 - Generalized abdominal pain (2) Ascites: Qualified Codes: R18.8 - Other ascites Zach Briceno MD Jun 17, 2017 08:57
[2017-06-17] MEDS: SODIUM CHLORIDE 0.9% FLUSH 10 ML FLUSH IV FLUSH SCH ×3 (09:00→21:11)
[2017-06-17] MEDS: ONDANSETRON HCL 4 MG/2 ML VIAL IV PUSH PRN ×2 (10:10→14:04)
[2017-06-17] MEDS: INSULIN ASPART SUPPLEMENTAL SCALE SQ SCH ×4 (10:12→21:42)
[2017-06-17] MEDS: METOPROLOL TARTRATE 5 MG/5 ML VIAL IV PUSH PRN ×2 (11:21→18:14)
[2017-06-17] MEDS: CIPROFLOXACIN 400 MG PREMIX 200 ML IV SCH ×2 (14:05→23:20)
[2017-06-17] MEDS: fentaNYL 25 MCG/HR PATCH T-DERMAL SCH (16:23)
[2017-06-17] MEDS: LORazepam 2 MG/ML VIAL IV PUSH PRN (16:34)
[2017-06-17] MEDS ORDERED: REMOVE OLD DURAGESIC (FENTANYL) PATCH T-DERMAL SCH (17:00)
[2017-06-17] MEDS: FAT EMULSION 20% INJ 250 ML (@10 mls/hr) IV-CENTRAL SCH (21:10)
[2017-06-17] MEDS: CLINIMIX E 5/25 2000 mL- >42 mls/hr IV-CENTRAL SCH ×3 (21:10)
[2017-06-17] MEDS: ASPIRIN EC 81 MG TABEC PO SCH (21:11)
[2017-06-18] VITALS (10 sets, daily range): BP systolic 135–148; BP diastolic 82–92; PULSE 114–133; RESP 16–21; TEMP 97.8–98.2; O2SAT 96–99
[2017-06-18] MEDS: HYDROmorphone HCL PF 1 MG/ML VIAL IV PUSH PRN ×4 (02:41→21:48)
[2017-06-18] MEDS: METOPROLOL TARTRATE 50 MG TAB PO SCH ×4 (05:48→23:59)
[2017-06-18] MEDS: METOCLOPRAMIDE HCL 10 MG/2 ML VIAL IV PUSH SCH ×3 (05:48→21:59)
[2017-06-18 06:25] LABS: AUTOMATED NEUTROPHIL # 12.2 TH/MM3 (1.8-7.7); BASOPHIL % 0.2 % (0.0-2.0); EOSINOPHIL # 0.1 TH/MM3 (0-0.4); EOSINOPHIL % 0.6 % (0.0-4.0); HEMATOCRIT 31.5 % (35.0-46.0); HEMO FLAGS DIFF FINAL; LYMPHOCYTE # 1.6 TH/MM3 (1.0-4.8); MEAN CELL VOLUME 89.7 FL (80.0-100.0); MEAN CORPUSCULAR HEMOGLOBIN 29.2 PG (27.0-34.0); MEAN CORPUSCULAR HGB CONC 32.6 % (32.0-36.0); MONO % 4.4 % (0.0-8.0); NEUT % 83.8 % (16.0-70.0); PLATELET COUNT 132 TH/MM3 (150-450); RED BLOOD COUNT 3.51 MIL/MM3 (4.00-5.30); RED CELL DISTRIBUTION WIDTH 14.8 % (11.6-17.2); WHITE BLOOD COUNT 14.6 TH/MM3 (4.0-11.0)
[2017-06-18] MEDS: METOPROLOL TARTRATE 5 MG/5 ML VIAL IV PUSH PRN (06:37)
[2017-06-18 06:54] LABS: BICARBONATE 31.8 MEQ/L (21.0-32.0); MAGNESIUM 1.8 MG/DL (1.5-2.5); POTASSIUM 3.6 MEQ/L (3.5-5.1)
[2017-06-18] MEDS ORDERED: POTASSIUM CHLOR 40 MEQ PREMIX 100 ML IV ONE (07:30)
--- NOTE | 2017-06-18 07:43 | HHI.PR ---
Subjective Remarks still pain at peg site. no flatus or bm Objective Vitals heart reg/tachy lung diminished caroline abd peg to liws/minimal abdomen firm ext no pitting. picc Vital Signs Date Time Temp Pulse Resp B/P (MAP) Pulse Ox O2 Delivery O2 Flow Rate FiO2 06/18/17 06:52 114 06/18/17 06:35 133 06/18/17 05:49 98.1 124 21 138/87 (104) 96 06/18/17 04:09 121 06/18/17 03:11 16 06/18/17 00:22 98.2 120 16 148/92 (110) 96 06/17/17 23:01 121 06/17/17 21:42 98.8 122 20 148/76 (100) 95 06/17/17 20:07 114 06/17/17 20:04 97 Nasal Cannula 2.50 06/17/17 16:38 99.0 134 22 152/88 (109) 97 06/17/17 11:31 98.6 117 18 146/77 (100) 98 06/17/17 08:23 97 Nasal Cannula 2.50 06/17/17 08:20 104 06/17/17 08:15 98.5 132 20 146/77 (100) 95 Result Diagram: 06/18/17 0600 06/18/17 0600 Imaging Last Impressions Abdomen Biopsy CT 06/04/17 0000 Signed Impressions: Service Date/Time: Sunday, June 04, 2017 14:57 - CONCLUSION: Uncomplicated CT guided biopsy of the omentum. Chilango Shaw MD Liver Ultrasound 06/02/17 0000 Signed Impressions: Service Date/Time: Friday, June 02, 2017 23:21 - CONCLUSION: 1. Cirrhosis 2. Possible mass right lobe of the liver. MRI is recommended for further evaluation if clinically indicated. 3. Moderate ascites Mert Paige MD Chest X-Ray 05/31/17 1557 Signed Impressions: Service Date/Time: Wednesday, May 31, 2017 16:05 - CONCLUSION: No acute disease. Ivan Lowe MD Abdomen/Pelvis CT 05/31/17 1403 Signed Impressions: Service Date/Time: Wednesday, May 31, 2017 14:41 - CONCLUSION: Ascites appears complex new from 03/23/17. Other than liver disease I don't see an etiology for such. If paracentesis is contemplated fluid should be sent for cytology. Tom Kellogg MD FACRADDENDU: The above was reviewed. Of note, the patient is a stable 2 cm lesion in the medial aspect of the right hepatic lobe which shows rim enhancement, most characteristic of a benign hemangioma. Re\re aerating the above, there is stranding in the omentum which appears to be isolated. There is no associated anasarca or fluid in the mesenteric leaves. This appears to be a process isolated to the omentum itself. Although there are no discrete soft tissue lesions, findings could represent an interstitial or lymphatic type neoplastic process. Omental biopsy could be considered for further characterization. Jonathan Adame MD Cyst Biopsy Asp-Paracentesis US 05/31/17 0000 Signed Impressions: Service Date/Time: Wednesday, May 31, 2017 16:43 - CONCLUSION: Uncomplicated ultrasound guided paracentesis. Minimal fluid aspirated. 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 - Pt presented to the ED with complaints of worsening abdominal pain and distension. She states that she has been having issues with abd pain for the last 2 months. For the last 2 weeks she has been having increased generalized abd pain and distension which has been significantly worse over the last 2 days. - CT Abd/pelvis revealed ascites appears complex and new from 03/23/17. - She was previously seen in the ED on 03/[address] abd/pelvis at that time noted an 18mm lesion in the right lobe of the liver, with features favoring hemangioma. She was sent for followup as an outpt with GI. She had an MRI Abdomen W/O Contrast (05/13/17) with benign hemangioma in the caudate lobe of the liver corresponding to the lesion identified on CT otherwise normal examination. - Outpt workup with GI in April 2017 revealed positive ASMA, positive RACHELE, and RODRIGUEZ FibroSURE with fibrosis score of 0.04 (No fibrosis), Steatosis score of 0.78/S3 (marked or severe steatosis). Viral Hepatitis was negative. IgG subclasses were WNL, LKM Ab negative, AMA negative, Iron studies WNL, Ferritin 160 (slightly elevated), Ceruloplasmin WNL. Labs on 05/12/17 with AST 54, ALT 81, AlkPhos 92, Tbili 0.8 , DBili 0.2. autoimmune hepatitis was questioned. - Pt had diagnostic paracentesis on 05/31 with removal of 15cc of fluid - Cell count for the fluid noted WBC count 1657 - Fluid culture with no growth - cytology --> atypical epithelioid cells suspicious for malignancy - Repeat paracentesis 06/04/17 - 3,600ml of ascites removed - Ascitic Cell count: WBC 494, RBC 6525 - Fluid culture shows ngtd - cytology -->suspicious for malignant cells - Pt underwent Omental Biopsy (06/04/17) --> path suspicious for signet cell adenoca - EGD 06/11 --> antral ulcerated mass with near obstruction of outlet. 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 - Heme-Onc, Dr. Davis, is following. - She was started on palliative systemic therapy with FOLFOX to help debulk her tumor to relieve some of her gastric symptoms of obstruction - She received cycle 1 day 1 was 06/12/2017. - NGT placed for decompression for malignant bowel obstruction - General Surgery was consulted but its felt that currently the pt will not benefit from J tube and she will be unable to undergo enteral nutrition. - PICC line placed 06/11 and pt is on TPN - Pt developed sinus tachycardia with rates into the 140's, possibly secondary to physiological response related to her malignant/obstructive process and stopping her chronic bb. She was on Cardizem gtt with supplemental Lopressor IV. The Cardizem gtt has been stopped. po lopressor resumed/crushed..prn iv lopressor - IR placed PEG tube on 06/16. removed ngt on 06/17 - PEG to gravity. - titrating up basal insulin and then add to tpn once controlled. -cont iv lasix and monitor bmp - DVT prophylaxis with Lovenox -PT consultation. (2) Sinus tachycardia ICD Codes: R00.0 - Tachycardia, unspecified Status: Acute Plan: - physiologic d/t pain and disease process - Pt only able to receive IV medication, see above - comgmt with Cardiology - increased IV lopressor to 5mg q4h (3) Abdominal pain ICD Codes: R10.9 - Unspecified abdominal pain Status: Acute Plan: - See above. (4) Ascites ICD Codes: R18.8 - Other ascites Status: Acute Plan: - See above (5) Hypertension ICD Codes: I10 - Essential (primary) hypertension Status: Chronic Plan: - See above (6) Hyperlipidemia ICD Codes: E78.5 - Hyperlipidemia, unspecified Status: Chronic Plan: - Statin was held as an outpt (7) CAD (coronary artery disease) ICD Codes: I25.10 - Atherosclerotic heart disease of [place] coronary artery without angina pectoris Status: Chronic Plan: - Pt with hx of CAD and NSTEMI in 2010 s/p stent in the RCA (8) Tobacco abuse ICD Codes: Z72.0 - Tobacco use Status: Chronic Problem Qualifiers (1) Abdominal pain: Qualified Codes: R10.84 - Generalized abdominal pain (2) Ascites: Qualified Codes: R18.8 - Other ascites Zach Briceno MD Jun 18, 2017 07:43
[2017-06-18] MEDS: SODIUM CHLORIDE 0.9% FLUSH 10 ML FLUSH IV FLUSH SCH ×3 (09:00→20:30)
[2017-06-18] MEDS: ENOXAPARIN SODIUM 40 MG/0.4 ML SYRINGE SQ SCH (09:20)
[2017-06-18] MEDS: FUROSEMIDE 20 MG/2 ML VIAL IV PUSH SCH ×2 (09:21→18:07)
[2017-06-18] MEDS: PANTOPRAZOLE SODIUM 40 MG VIAL IV PUSH SCH ×2 (09:22→20:30)
[2017-06-18] MEDS: INSULIN ASPART SUPPLEMENTAL SCALE SQ SCH ×4 (09:23→22:00)
[2017-06-18] MEDS: INSULIN DETEMIR 100 UNITS/ML VIAL SQ SCH ×2 (09:23→20:29)
[2017-06-18] MEDS: CIPROFLOXACIN 400 MG PREMIX 200 ML IV SCH ×2 (13:53→23:59)
[2017-06-18] MEDS: ASPIRIN EC 81 MG TABEC PO SCH (20:29)
[2017-06-18] MEDS: CLINIMIX E 5/25 2000 mL- >42 mls/hr IV-CENTRAL SCH ×3 (20:42)
[2017-06-18] MEDS: FAT EMULSION 20% INJ 250 ML (@10 mls/hr) IV-CENTRAL SCH (20:43)
[2017-06-19] VITALS (8 sets, daily range): BP systolic 124–152; BP diastolic 74–90; PULSE 120–134; RESP 16–18; TEMP 97.6–98.5; O2SAT 94–97
[2017-06-19] MEDS: HYDROmorphone HCL PF 1 MG/ML VIAL IV PUSH PRN ×8 (01:10→22:11)
[2017-06-19] MEDS: METOPROLOL TARTRATE 50 MG TAB PO SCH ×3 (06:22→18:06)
[2017-06-19] MEDS: METOCLOPRAMIDE HCL 10 MG/2 ML VIAL IV PUSH SCH ×3 (06:22→22:09)
[2017-06-19 07:44] LABS: BICARBONATE 33.4 MEQ/L (21.0-32.0); MAGNESIUM 1.8 MG/DL (1.5-2.5); POTASSIUM 3.5 MEQ/L (3.5-5.1)
[2017-06-19] MEDS ORDERED: POTASSIUM CHLOR 40 MEQ PREMIX 100 ML IV ONE (08:00)
[2017-06-19] MEDS: ONDANSETRON HCL 4 MG/2 ML VIAL IV PUSH PRN ×2 (08:42→20:09)
[2017-06-19] MEDS ORDERED: fentaNYL 50 MCG/HR PATCH T-DERMAL ONE (09:00)
--- NOTE | 2017-06-19 09:07 | HHI.PR ---
Subjective Remarks alot of pain at g tube site. she has been thinking about hospice Objective Vitals in pain oriented diminished bs at bases heart tachy abd no bs/firm/tender around peg ext no pitting. picc Vital Signs Date Time Temp Pulse Resp B/P (MAP) Pulse Ox O2 Delivery O2 Flow Rate FiO2 06/19/17 06:00 97.6 131 18 150/74 (99) 95 06/19/17 00:00 98.0 129 18 148/90 (109) 96 06/18/17 22:17 98 Nasal Cannula 2.50 06/18/17 20:00 98.1 119 18 135/86 (102) 99 06/18/17 19:00 123 06/18/17 18:08 98.0 120 18 138/82 (100) 98 06/18/17 09:13 97.8 122 18 145/87 (106) 96 06/19/17 06/19/17 06/20/17 15:00 23:00 07:00 Output Total 200 ml Balance -200 ml Output Urine Total 200 ml Result Diagram: 06/18/17 0600 06/19/17 0615 Imaging Last Impressions Abdomen Biopsy CT 06/04/17 0000 Signed Impressions: Service Date/Time: Sunday, June 04, 2017 14:57 - CONCLUSION: Uncomplicated CT guided biopsy of the omentum. Chilango Shaw MD Liver Ultrasound 06/02/17 0000 Signed Impressions: Service Date/Time: Friday, June 02, 2017 23:21 - CONCLUSION: 1. Cirrhosis 2. Possible mass right lobe of the liver. MRI is recommended for further evaluation if clinically indicated. 3. Moderate ascites Mert Paige MD Chest X-Ray 05/31/17 1557 Signed Impressions: Service Date/Time: Wednesday, May 31, 2017 16:05 - CONCLUSION: No acute disease. Ivan Lowe MD Abdomen/Pelvis CT 05/31/17 1403 Signed Impressions: Service Date/Time: Wednesday, May 31, 2017 14:41 - CONCLUSION: Ascites appears complex new from 03/23/17. Other than liver disease I don't see an etiology for such. If paracentesis is contemplated fluid should be sent for cytology. Tom Kellogg MD FACRADDENDU: The above was reviewed. Of note, the patient is a stable 2 cm lesion in the medial aspect of the right hepatic lobe which shows rim enhancement, most characteristic of a benign hemangioma. Re\re aerating the above, there is stranding in the omentum which appears to be isolated. There is no associated anasarca or fluid in the mesenteric leaves. This appears to be a process isolated to the omentum itself. Although there are no discrete soft tissue lesions, findings could represent an interstitial or lymphatic type neoplastic process. Omental biopsy could be considered for further characterization. Jonathan Adame MD Cyst Biopsy Asp-Paracentesis US 05/31/17 0000 Signed Impressions: Service Date/Time: Wednesday, May 31, 2017 16:43 - CONCLUSION: Uncomplicated ultrasound guided paracentesis. Minimal fluid aspirated. 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 - Pt presented to the ED with complaints of worsening abdominal pain and distension. She states that she has been having issues with abd pain for the last 2 months. For the last 2 weeks she has been having increased generalized abd pain and distension which has been significantly worse over the last 2 days. - CT Abd/pelvis revealed ascites appears complex and new from 03/23/17. - She was previously seen in the ED on 03/[address] abd/pelvis at that time noted an 18mm lesion in the right lobe of the liver, with features favoring hemangioma. She was sent for followup as an outpt with GI. She had an MRI Abdomen W/O Contrast (05/13/17) with benign hemangioma in the caudate lobe of the liver corresponding to the lesion identified on CT otherwise normal examination. - Outpt workup with GI in April 2017 revealed positive ASMA, positive RACHELE, and RODRIGUEZ FibroSURE with fibrosis score of 0.04 (No fibrosis), Steatosis score of 0.78/S3 (marked or severe steatosis). Viral Hepatitis was negative. IgG subclasses were WNL, LKM Ab negative, AMA negative, Iron studies WNL, Ferritin 160 (slightly elevated), Ceruloplasmin WNL. Labs on 05/12/17 with AST 54, ALT 81, AlkPhos 92, Tbili 0.8 , DBili 0.2. autoimmune hepatitis was questioned. - Pt had diagnostic paracentesis on 05/31 with removal of 15cc of fluid - Cell count for the fluid noted WBC count 1657 - Fluid culture with no growth - cytology --> atypical epithelioid cells suspicious for malignancy - Repeat paracentesis 06/04/17 - 3,600ml of ascites removed - Ascitic Cell count: WBC 494, RBC 6525 - Fluid culture shows ngtd - cytology -->suspicious for malignant cells - Pt underwent Omental Biopsy (06/04/17) --> path suspicious for signet cell adenoca - EGD 06/11 --> antral ulcerated mass with near obstruction of outlet. 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 - Heme-Onc, Dr. Davis, is following. - She was started on palliative systemic therapy with FOLFOX to help debulk her tumor to relieve some of her gastric symptoms of obstruction - She received cycle 1 day 1 was 06/12/2017. - NGT placed for decompression for malignant bowel obstruction - General Surgery was consulted but its felt that currently the pt will not benefit from J tube and she will be unable to undergo enteral nutrition. - PICC line placed 06/11 and pt is on TPN - Pt developed sinus tachycardia with rates into the 140's, possibly secondary to physiological response related to her malignant/obstructive process and stopping her chronic bb. She was on Cardizem gtt with supplemental Lopressor IV. The Cardizem gtt has been stopped. po lopressor resumed/crushed..prn iv lopressor - IR placed PEG tube on 06/16. removed ngt on 06/17 - PEG to gravity. - titrating up basal insulin and then add to tpn once controlled. -cont iv lasix and monitor bmp - DVT prophylaxis with Lovenox -PT consultation. -Pt in alot of pain at peg site. She is asking me about comfort care and hospice. She has been thinking about the [facility]. She is agreeable to increase her pain meds now. See if any improvement and then discuss with her Oncologist.....She understands this is an incurable dz and again she is leaning toward comfort measures only. She requested dnr. (2) Sinus tachycardia ICD Codes: R00.0 - Tachycardia, unspecified Status: Acute Plan: - physiologic d/t pain and disease process - Pt only able to receive IV medication, see above - comgmt with Cardiology - increased IV lopressor to 5mg q4h (3) Abdominal pain ICD Codes: R10.9 - Unspecified abdominal pain Status: Acute Plan: - See above. (4) Ascites ICD Codes: R18.8 - Other ascites Status: Acute Plan: - See above (5) Hypertension ICD Codes: I10 - Essential (primary) hypertension Status: Chronic Plan: - See above (6) Hyperlipidemia ICD Codes: E78.5 - Hyperlipidemia, unspecified Status: Chronic Plan: - Statin was held as an outpt (7) CAD (coronary artery disease) ICD Codes: I25.10 - Atherosclerotic heart disease of [place] coronary artery without angina pectoris Status: Chronic Plan: - Pt with hx of CAD and NSTEMI in 2010 s/p stent in the RCA (8) Tobacco abuse ICD Codes: Z72.0 - Tobacco use Status: Chronic Problem Qualifiers (1) Abdominal pain: Qualified Codes: R10.84 - Generalized abdominal pain (2) Ascites: Qualified Codes: R18.8 - Other ascites Zach Briceno MD Jun 19, 2017 09:07
[2017-06-19] MEDS: PANTOPRAZOLE SODIUM 40 MG VIAL IV PUSH SCH ×2 (09:23→20:12)
[2017-06-19] MEDS: ENOXAPARIN SODIUM 40 MG/0.4 ML SYRINGE SQ SCH (09:23)
[2017-06-19] MEDS: INSULIN DETEMIR 100 UNITS/ML VIAL SQ SCH ×2 (09:23→20:18)
[2017-06-19] MEDS: FUROSEMIDE 20 MG/2 ML VIAL IV PUSH SCH ×2 (09:23→17:50)
[2017-06-19] MEDS: INSULIN ASPART SUPPLEMENTAL SCALE SQ SCH ×4 (09:24→20:25)
[2017-06-19] MEDS: SODIUM CHLORIDE 0.9% FLUSH 10 ML FLUSH IV FLUSH SCH ×3 (09:24→20:27)
--- NOTE | 2017-06-19 11:00 | PD.ONC.PN ---
Subjective Subjective Remarks Patient seen and examined, vital signs, labs and medications were reviewed. Changes to pain medications were noted; fentanyl patch was increased from 25 g per hour to 50 g per hour strength. Patient tells me her abdominal pain at the site of the PEG tube was severe, constant and near intolerable earlier this morning. She tells me she was contemplating hospice level of care because of the pain related to the PEG tube. Her brother and a friend are at bedside. The patient tells me she would like to implement DNR/DNI CODE STATUS. Objective Data Date Time Temp Pulse Resp B/P (MAP) Pulse Ox O2 Delivery O2 Flow Rate FiO2 06/19/17 09:18 97 Nasal Cannula 2.00 06/19/17 08:31 98.5 121 16 136/89 (105) 95 06/19/17 06:00 97.6 131 18 150/74 (99) 95 06/19/17 00:00 98.0 129 18 148/90 (109) 96 06/18/17 22:17 98 Nasal Cannula 2.50 06/18/17 20:00 98.1 119 18 135/86 (102) 99 06/18/17 19:00 123 06/18/17 18:08 98.0 120 18 138/82 (100) 98 06/19/17 06/19/17 06/19/17 07:00 15:00 23:00 Intake Total 2824 ml Output Total 800 ml 500 ml Balance 2024 ml -500 ml Result Diagram: 06/18/17 0600 06/19/17 0615 Laboratory Results Laboratory Tests Test 06/19/17 06:15 Blood Urea Nitrogen 16 MG/DL Creatinine 0.55 MG/DL Random Glucose 205 MG/DL Calcium Level 8.2 MG/DL Magnesium Level 1.8 MG/DL Sodium Level 131 MEQ/L Potassium Level 3.5 MEQ/L Chloride Level 91 MEQ/L Carbon Dioxide Level 33.4 MEQ/L Anion Gap 7 MEQ/L Estimat Glomerular Filtration Rate 116 ML/MIN Administered Medications Medications (Trade) Dose Ordered Sig/Nelda Route PRN Reason Start Time Stop Time Status Last Admin Dose Admin Sodium Chloride (NS Flush) 2 ml UNSCH PRN IV FLUSH FLUSH AFTER USING IV ACCESS 05/31/17 16:00 06/15/17 03:23 Sodium Chloride (NS Flush) 2 ml BID IV FLUSH 05/31/17 21:00 06/19/17 09:24 Aspirin (Ecotrin Ec) 81 mg HS PO 05/31/17 21:00 06/18/17 20:29 Miscellaneous (Pill Splitter) 1 ea UNSCH PRN OTHER SEE LABEL COMMENTS 05/31/17 21:00 06/12/17 09:05 Ondansetron HCl (Zofran Inj) 4 mg Q4H PRN IV PUSH NAUSEA 06/07/17 21:00 06/19/17 08:42 Pantoprazole Sodium (Protonix Inj) 40 mg Q12H IV PUSH 06/08/17 21:00 06/19/17 09:23 Fat Emulsion Intravenous 250 ml @ 10 mls/hr Q24H IV-CENTRAL 06/10/17 20:00 06/18/17 20:43 Phenol (Chloraseptic [place]) 2 spray Q2H PRN OROPHARYNG throat pain 06/11/17 12:00 06/12/17 02:47 Sodium Chloride (NS Flush) See Protocol DAILY IV FLUSH 06/12/17 09:00 06/19/17 10:12 Heparin Sodium (Porcine) (Heparin Central Flush) See Protocol DAILY IV FLUSH 06/12/17 09:00 06/18/17 09:20 Sodium Chloride (NS Flush) UNSCH PRN IV FLUSH SEE PROTOCOL TABLE 06/11/17 12:30 06/13/17 23:18 Multivitamins 10 ml/Folic Acid 1 mg/Amino Acids/ Electrolytes/ Dextrose 2,010.2 ml @ 75 mls/hr Q24H IV-CENTRAL 06/12/17 20:00 06/18/17 20:42 Metoclopramide HCl (Reglan Inj) 5 mg Q8HR IV PUSH 06/13/17 14:00 06/19/17 06:22 Enoxaparin Sodium (Lovenox Inj) 40 mg Q24H SQ 06/13/17 08:15 Future hold 06/19/17 09:23 Ciprofloxacin/ Dextrose 200 ml @ 200 mls/hr Q12H IV 06/13/17 12:00 06/18/17 23:59 Lorazepam (Ativan Inj) 0.5 mg Q6H PRN IV PUSH nausea/anxiety 06/13/17 14:45 06/17/17 16:34 Metoprolol Tartrate (Lopressor Inj) 5 mg Q4H PRN IV PUSH HR > 120 06/16/17 11:00 06/18/17 06:37 Insulin Detemir (Levemir Inj) 30 units Q12HR SQ 06/18/17 09:00 06/19/17 09:23 Metoprolol Tartrate (Lopressor) 75 mg Q6HR PO 06/18/17 12:00 06/19/17 06:22 Furosemide (Lasix Inj) 20 mg BID@09,18 IV PUSH 06/18/17 09:00 06/19/17 09:23 Insulin Aspart (NovoLOG SUPPLEMENTAL SCALE) 1 ACHS SLIDING SCALE SQ 06/18/17 08:00 06/19/17 09:24 Potassium Chloride 100 ml @ 25 mls/hr BOLUS ONCE IV 06/19/17 08:00 06/19/17 11:59 06/19/17 10:05 Objective Remarks Ms. Vicente is a middle-aged female. She is sitting up in bed. she appears to be Uncomfortable, she is arousable and alert. NG tube has been removed from the left nostril. HEENT: Head atraumatic, normocephalic, conjunctivae are mildly pale, sclerae are anicteric, EOMI, PERRLA, oral exam no pharyngeal erythema. NECK: No palpable cervical or supraclavicular lymphadenopathy. RESPIRATORY: Decreased bibasilar breath sounds. Good air movement over the upper and middle lung zones. No wheezing or rhonchi. CARDIOVASCULAR: tachycardia, regular, S1-S2. No obvious murmurs, rubs or gallops. Heart rate sustained in the 120-130 bpm range. ABDOMEN: Distended abdomen, firm, tender to mild palpation, no obvious organ enlargement noted. Free fluid is noted within the abdomen. Interval placement of a percutaneous gastrostomy tube. The gastrostomy tube is draining gastric contents. LOWER EXTREMITIES: Bilateral pretibial edema, no calf tenderness. MUSCULOSKELETAL: Good muscle mass, tone and strength. DATE PITTER: No focal sensory motor deficits. Assessment/Plan Assessment Ms. Vicente is a 52-year-old female with a 2.5 month history of progressive epigastric pain, nausea, vomiting and abdominal distension. She was noted on imaging studies on 06/10/2017 to have omental thickening and ascites. Omental biopsy revealed findings highly concerning for a high-grade adenocarcinoma with signet cell features. An EGD ensued and the EGD revealed an antral mass involving the gastric wall associated with ulceration and thickening. 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 Her major complaints are that of abdominal distension, pain and nausea. Plan 1. 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 She has bowel obstruction or partial bowel obstruction at the level of the antrum due to the primary tumor as well as what appears to be small bowel obstruction due to peritoneal carcinomatosis. She is presently on TPN and is also has an PEG tube to intermittent wall suction for gastric decompression. She was treated with palliative systemic therapy with FOLFOX to help debulk her tumor to relieve some of her gastric symptoms of obstruction; cycle 1 day 1 was 06/12/2017, infusion completed on 06/14/2017. I have requested HER-2/cristina staining on her disease; results are pending. Should she have HER-2 amplification she she would be a candidate for combination systemic chemotherapy with trastuzumab. 2. Persistent bowel obstruction due to gastric outflow obstruction as well as likely diffuse intestinal obstruction due to bulky peritoneal carcinomatosis: Gastrostomy tube placed for palliative suction. The PEG tube is the cause of significant abdominal pain which is to be expected at least for the first 7-10 days after placement. 3. Persistent tachycardia: Sinus tachycardia, on periodic beta blockers. Disposition: I had a conversation with the patient and her brother at bedside today. I explained to her that pain associated with PEG tube placement is to be expected but we also anticipate it to improve over a period of time. I've advised her to continue requesting as needed pain medications and to give her fentanyl patch a little bit more time to work at the higher dose. I do agree with changing her CODE STATUS to DNR/DNI. I also talked to her about the possibility of transitioning to hospice level of care, I explained to her that it may take several weeks for her chemotherapy to begin showing some improvement. If she is willing to hang in there for the next few weeks there is a good chance that her symptoms will improve and that she may even be able to go on some form of an oral diet. She would therefore like to continue ongoing care for the time being and she rescinds her hospice request. Memo Davis MD Jun 19, 2017 11:00
[2017-06-19] MEDS: CIPROFLOXACIN 400 MG PREMIX 200 ML IV SCH (15:02)
[2017-06-19] MEDS: ASPIRIN EC 81 MG TABEC PO SCH (20:25)
[2017-06-19] MEDS: FAT EMULSION 20% INJ 250 ML (@10 mls/hr) IV-CENTRAL SCH (20:29)
[2017-06-19] MEDS: SODIUM ACETATE IV-CENTRAL SCH ×9 (20:29)
[2017-06-19] MEDS: SODIUM CHLORIDE IV-CENTRAL SCH ×9 (20:29)
[2017-06-19] MEDS: [UNRECOGNIZED DRUG - OTHER] IV-CENTRAL SCH ×9 (20:29)
[2017-06-20] VITALS (10 sets, daily range): BP systolic 129–153; BP diastolic 70–92; PULSE 118–145; RESP 16–20; TEMP 97.8–98.9; O2SAT 93–96
[2017-06-20] MEDS: HYDROmorphone HCL PF 1 MG/ML VIAL IV PUSH PRN ×11 (00:36→23:35)
[2017-06-20] MEDS: ONDANSETRON HCL 4 MG/2 ML VIAL IV PUSH PRN ×5 (00:36→21:31)
[2017-06-20] MEDS: METOPROLOL TARTRATE 50 MG TAB PO SCH ×2 (00:37→05:05)
[2017-06-20] MEDS: CIPROFLOXACIN 400 MG PREMIX 200 ML IV SCH ×3 (00:37→23:34)
[2017-06-20] MEDS: METOCLOPRAMIDE HCL 10 MG/2 ML VIAL IV PUSH SCH ×3 (05:03→20:59)
[2017-06-20] MEDS: PANTOPRAZOLE SODIUM 40 MG VIAL IV PUSH SCH ×2 (07:46→19:24)
[2017-06-20] MEDS: FUROSEMIDE 20 MG/2 ML VIAL IV PUSH SCH (07:46)
[2017-06-20] MEDS: ENOXAPARIN SODIUM 40 MG/0.4 ML SYRINGE SQ SCH (07:47)
--- NOTE | 2017-06-20 07:59 | HHI.PR ---
Subjective Remarks had a much better day yesterday no complaints says she thinks the abdomen pain was muscular Objective Vitals nad no labored breathing picc peg no edema Vital Signs Date Time Temp Pulse Resp B/P (MAP) Pulse Ox O2 Delivery O2 Flow Rate FiO2 06/20/17 05:00 97.8 130 20 145/82 (103) 95 06/20/17 00:34 98.1 137 18 139/88 (105) 96 06/19/17 20:10 120 06/19/17 20:00 97.6 122 18 124/88 (100) 94 06/19/17 16:03 98.0 134 16 129/88 (102) 06/19/17 12:50 98.4 132 16 152/87 (108) 94 06/19/17 09:18 97 Nasal Cannula 2.00 06/19/17 08:31 98.5 121 16 136/89 (105) 95 Result Diagram: 06/18/17 0600 06/19/17 0615 Imaging Last Impressions Abdomen Biopsy CT 06/04/17 0000 Signed Impressions: Service Date/Time: Sunday, June 04, 2017 14:57 - CONCLUSION: Uncomplicated CT guided biopsy of the omentum. Chilango Shaw MD Liver Ultrasound 06/02/17 0000 Signed Impressions: Service Date/Time: Friday, June 02, 2017 23:21 - CONCLUSION: 1. Cirrhosis 2. Possible mass right lobe of the liver. MRI is recommended for further evaluation if clinically indicated. 3. Moderate ascites Mert Paige MD Chest X-Ray 05/31/17 1557 Signed Impressions: Service Date/Time: Wednesday, May 31, 2017 16:05 - CONCLUSION: No acute disease. Ivan Lowe MD Abdomen/Pelvis CT 05/31/17 1403 Signed Impressions: Service Date/Time: Wednesday, May 31, 2017 14:41 - CONCLUSION: Ascites appears complex new from 03/23/17. Other than liver disease I don't see an etiology for such. If paracentesis is contemplated fluid should be sent for cytology. Tom Kellogg MD FACRADDENDUM: The above was reviewed. Of note, the patient is a stable 2 cm lesion in the medial aspect of the right hepatic lobe which shows rim enhancement, most characteristic of a benign hemangioma. Re\re aerating the above, there is stranding in the omentum which appears to be isolated. There is no associated anasarca or fluid in the mesenteric leaves. This appears to be a process isolated to the omentum itself. Although there are no discrete soft tissue lesions, findings could represent an interstitial or lymphatic type neoplastic process. Omental biopsy could be considered for further characterization. Jonathan Adame MD Cyst Biopsy Asp-Paracentesis US 05/31/17 0000 Signed Impressions: Service Date/Time: Wednesday, May 31, 2017 16:43 - CONCLUSION: Uncomplicated ultrasound guided paracentesis. Minimal fluid aspirated. 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 - Pt presented to the ED with complaints of worsening abdominal pain and distension. She states that she has been having issues with abd pain for the last 2 months. For the last 2 weeks she has been having increased generalized abd pain and distension which has been significantly worse over the last 2 days. - CT Abd/pelvis revealed ascites appears complex and new from 03/23/17. - She was previously seen in the ED on 03/[address] abd/pelvis at that time noted an 18mm lesion in the right lobe of the liver, with features favoring hemangioma. She was sent for followup as an outpt with GI. She had an MRI Abdomen W/O Contrast (05/13/17) with benign hemangioma in the caudate lobe of the liver corresponding to the lesion identified on CT otherwise normal examination. - Outpt workup with GI in April 2017 revealed positive ASMA, positive RACHELE, and RODRIGUEZ FibroSURE with fibrosis score of 0.04 (No fibrosis), Steatosis score of 0.78/S3 (marked or severe steatosis). Viral Hepatitis was negative. IgG subclasses were WNL, LKM Ab negative, AMA negative, Iron studies WNL, Ferritin 160 (slightly elevated), Ceruloplasmin WNL. Labs on 05/12/17 with AST 54, ALT 81, AlkPhos 92, Tbili 0.8 , DBili 0.2. autoimmune hepatitis was questioned. - Pt had diagnostic paracentesis on 05/31 with removal of 15cc of fluid - Cell count for the fluid noted WBC count 1657 - Fluid culture with no growth - cytology --> atypical epithelioid cells suspicious for malignancy - Repeat paracentesis 06/04/17 - 3,600ml of ascites removed - Ascitic Cell count: WBC 494, RBC 6525 - Fluid culture shows ngtd - cytology -->suspicious for malignant cells - Pt underwent Omental Biopsy (06/04/17) --> path suspicious for signet cell adenoca - EGD 06/11 --> antral ulcerated mass with near obstruction of outlet. 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 - Heme-Onc, Dr. Davis, is following. - She was started on palliative systemic therapy with FOLFOX to help debulk her tumor to relieve some of her gastric symptoms of obstruction - She received cycle 1 day 1 was 06/12/2017. - NGT placed for decompression for malignant bowel obstruction - General Surgery was consulted but its felt that currently the pt will not benefit from J tube and she will be unable to undergo enteral nutrition. - PICC line placed 06/11 and pt is on TPN - Pt developed sinus tachycardia with rates into the 140's, possibly secondary to physiological response related to her malignant/obstructive process and stopping her chronic bb. She was on Cardizem gtt with supplemental Lopressor IV. The Cardizem gtt has been stopped. po lopressor resumed/crushed..prn iv lopressor - IR placed PEG tube on 06/16. removed ngt on 06/17 - PEG to gravity. - titrating up basal insulin and then add to tpn once controlled. -cont iv lasix and monitor bmp - DVT prophylaxis with Lovenox -PT consultation. -Pt pain level improved. cont fentanyl/dilaudid prn. labs pending. wants to be dnr but will continue rx and hold off on hospice. (2) Sinus tachycardia ICD Codes: R00.0 - Tachycardia, unspecified Status: Acute Plan: - physiologic d/t pain and disease process - Pt only able to receive IV medication, see above - comgmt with Cardiology - increased IV lopressor to 5mg q4h (3) Abdominal pain ICD Codes: R10.9 - Unspecified abdominal pain Status: Acute Plan: - See above. (4) Ascites ICD Codes: R18.8 - Other ascites Status: Acute Plan: - See above (5) Hypertension ICD Codes: I10 - Essential (primary) hypertension Status: Chronic Plan: - See above (6) Hyperlipidemia ICD Codes: E78.5 - Hyperlipidemia, unspecified Status: Chronic Plan: - Statin was held as an outpt (7) CAD (coronary artery disease) ICD Codes: I25.10 - Atherosclerotic heart disease of [place] coronary artery without angina pectoris Status: Chronic Plan: - Pt with hx of CAD and NSTEMI in 2010 s/p stent in the RCA (8) Tobacco abuse ICD Codes: Z72.0 - Tobacco use Status: Chronic Problem Qualifiers (1) Abdominal pain: Qualified Codes: R10.84 - Generalized abdominal pain (2) Ascites: Qualified Codes: R18.8 - Other ascites Zach Briceno MD Jun 20, 2017 07:59
[2017-06-20] MEDS: SODIUM CHLORIDE 0.9% FLUSH 10 ML FLUSH IV FLUSH SCH ×3 (08:02→19:37)
[2017-06-20] MEDS: INSULIN ASPART SUPPLEMENTAL SCALE SQ SCH ×4 (09:00→20:28)
[2017-06-20] MEDS: INSULIN DETEMIR 100 UNITS/ML VIAL SQ SCH ×2 (09:01→20:28)
--- NOTE | 2017-06-20 09:39 | PD.ONC.PN ---
Subjective Subjective Remarks Afebrile Has just rec'd something for pain Feels like she has more pain today due to "overdoing it" yesterday Slept well Pain not associated with eating clear liquids Objective Data Date Time Temp Pulse Resp B/P (MAP) Pulse Ox O2 Delivery O2 Flow Rate FiO2 06/20/17 08:40 98.9 142 18 130/92 (105) 06/20/17 05:00 97.8 130 20 145/82 (103) 95 06/20/17 00:34 98.1 137 18 139/88 (105) 96 06/19/17 20:10 120 06/19/17 20:00 97.6 122 18 124/88 (100) 94 06/19/17 16:03 98.0 134 16 129/88 (102) 06/19/17 12:50 98.4 132 16 152/87 (108) 94 06/20/17 06/20/17 06/20/17 06:59 14:59 22:59 Intake Total 240 ml Output Total 1050 ml Balance -810 ml Result Diagram: 06/18/17 0600 06/20/17 0825 Laboratory Results Laboratory Tests Test 06/20/17 08:25 Blood Urea Nitrogen 18 MG/DL Creatinine 0.73 MG/DL Random Glucose 286 MG/DL Calcium Level 8.3 MG/DL Sodium Level 129 MEQ/L Potassium Level 4.0 MEQ/L Chloride Level 92 MEQ/L Carbon Dioxide Level 28.0 MEQ/L Anion Gap 9 MEQ/L Estimat Glomerular Filtration Rate 84 ML/MIN Administered Medications Medications (Trade) Dose Ordered Sig/Nelda Route PRN Reason Start Time Stop Time Status Last Admin Dose Admin Sodium Chloride (NS Flush) 2 ml UNSCH PRN IV FLUSH FLUSH AFTER USING IV ACCESS 05/31/17 16:00 06/15/17 03:23 Sodium Chloride (NS Flush) 2 ml BID IV FLUSH 05/31/17 21:00 06/20/17 08:02 Aspirin (Ecotrin Ec) 81 mg HS PO 05/31/17 21:00 06/19/17 20:25 Miscellaneous (Pill Splitter) 1 ea UNSCH PRN OTHER SEE LABEL COMMENTS 05/31/17 21:00 06/12/17 09:05 Ondansetron HCl (Zofran Inj) 4 mg Q4H PRN IV PUSH NAUSEA 06/07/17 21:00 06/20/17 07:33 Pantoprazole Sodium (Protonix Inj) 40 mg Q12H IV PUSH 06/08/17 21:00 06/20/17 07:46 Fat Emulsion Intravenous 250 ml @ 10 mls/hr Q24H IV-CENTRAL 06/10/17 20:00 06/19/17 20:29 Phenol (Chloraseptic [place]) 2 spray Q2H PRN OROPHARYNG throat pain 06/11/17 12:00 06/12/17 02:47 Sodium Chloride (NS Flush) See Protocol DAILY IV FLUSH 06/12/17 09:00 06/19/17 10:12 Heparin Sodium (Porcine) (Heparin Central Flush) See Protocol DAILY IV FLUSH 06/12/17 09:00 06/18/17 09:20 Sodium Chloride (NS Flush) UNSCH PRN IV FLUSH SEE PROTOCOL TABLE 06/11/17 12:30 06/13/17 23:18 Metoclopramide HCl (Reglan Inj) 5 mg Q8HR IV PUSH 06/13/17 14:00 06/20/17 05:03 Enoxaparin Sodium (Lovenox Inj) 40 mg Q24H SQ 06/13/17 08:15 Future hold 06/20/17 07:47 Ciprofloxacin/ Dextrose 200 ml @ 200 mls/hr Q12H IV 06/13/17 12:00 06/20/17 00:37 Lorazepam (Ativan Inj) 0.5 mg Q6H PRN IV PUSH nausea/anxiety 06/13/17 14:45 06/17/17 16:34 Metoprolol Tartrate (Lopressor Inj) 5 mg Q4H PRN IV PUSH HR > 120 06/16/17 11:00 06/18/17 06:37 Insulin Detemir (Levemir Inj) 30 units Q12HR SQ 06/18/17 09:00 06/19/17 20:18 Metoprolol Tartrate (Lopressor) 75 mg Q6HR PO 06/18/17 12:00 06/20/17 05:05 Furosemide (Lasix Inj) 20 mg BID@09,18 IV PUSH 06/18/17 09:00 06/20/17 07:46 Insulin Aspart (NovoLOG SUPPLEMENTAL SCALE) 1 ACHS SLIDING SCALE SQ 06/18/17 08:00 06/19/17 20:25 Hydromorphone HCl (Dilaudid Pf Inj) 1 mg Q2H PRN IV PUSH pain 3-10 06/19/17 09:00 06/20/17 07:34 Sodium Chloride 11 meq/Sodium Acetate 59 meq/ Potassium Chloride 120 meq/ Sodium Phosphate 40 meq/Magnesium Chloride 10 meq/ Calcium Chloride 9 meq/ Multivitamins 10 ml/Folic Acid 1 mg/Amino Acids/ Dextrose 2,124.1437 ml @ 75 mls/hr Q24H IV-CENTRAL 06/19/17 20:00 06/19/17 20:29 Objective Remarks GENERAL: Chronically ill appearing older female resting in bed in no acute distress SKIN: Warm and dry. HEAD: Normocephalic. EYES: No injection or drainage. NECK: Supple, trachea midline. CARDIOVASCULAR: +S1/S2. Tachycardia. RESPIRATORY: Clear anteriorly. Breathing unlabored at rest. Denies SOB GASTROINTESTINAL: Abdomen distended, firm. G tube to LUQ draining bile to suction canister EXTREMITIES: No cyanosis. Livedo reticularis noted to bilateral knees. MUSCULOSKELETAL: Generalized weakness NEUROLOGICAL: No obvious focal deficit. Awake, alert, and oriented x3. Assessment/Plan Assessment Ms. Vicente is a 52-year-old female with a 2.5 month history of progressive epigastric pain, nausea, vomiting and abdominal distension. She was noted on imaging studies on 06/10/2017 to have omental thickening and ascites. Omental biopsy revealed findings highly concerning for a high-grade adenocarcinoma with signet cell features. An EGD ensued and the EGD revealed an antral mass involving the gastric wall associated with ulceration and thickening. 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 Her major complaints are that of abdominal distension, pain and nausea. Plan 1. 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 She has bowel obstruction or partial bowel obstruction at the level of the antrum due to the primary tumor as well as what appears to be small bowel obstruction due to peritoneal carcinomatosis. She is presently on TPN and is also has an PEG tube to intermittent wall suction for gastric decompression. She was treated with palliative systemic therapy with FOLFOX to help debulk her tumor to relieve some of her gastric symptoms of obstruction; cycle 1 day 1 was 06/12/2017, infusion completed on 06/14/2017. I have requested HER-2/cristina staining on her disease; results are pending. Should she have HER-2 amplification she she would be a candidate for combination systemic chemotherapy with trastuzumab. 2. G tube draining lg amount of bile- 980ml's out over last 24 hours; it will take some time for chemotherapy to decrease the bulk of the carcinoma 3. Pt remains tachycardic. On Lopressor Q6H and cardiology following, metoprolol has been changed to IV due to concerns of malabsorption when administered by mouth. 4. Supportive care. Attending Statement The exam, history, and the medical decision-making described in the above note were completed with the assistance of the mid-level provider. I reviewed and agree with the findings presented. I attest that I had a [id number] encounter with the patient on the same day, and personally performed and documented my assessment and findings in the medical record. Patient seen and examined, vital signs, labs and medications reviewed. Subjectively she reports feeling better though she does have intermittent epigastric pain which feels like gastritis. She tells me she can hear bubbling in her abdomen, she is not had a bowel movement with past 48 hours. She does feel well enough to get up out of bed and is sitting on a bedside chair at the time of this interview. Overall she feels some gradual improvement though she has yet to tolerate a by mouth diet. She was discussing post hospital plan of care as well as disposition i.e. going home with home health nursing versus going to a intermediate facility. I told her both may be possible with the appropriate follow-up. She is not due for her next cycle of chemotherapy until June 27. Jami Vázquez Jun 20, 2017 09:39 Memo Davis MD Jun 20, 2017 13:57
[2017-06-20] MEDS: METOPROLOL TARTRATE 5 MG/5 ML VIAL IV PUSH SCH ×4 (12:33→23:31)
[2017-06-20] MEDS: SODIUM CHLORIDE IV-CENTRAL SCH ×9 (20:49)
[2017-06-20] MEDS: SODIUM ACETATE IV-CENTRAL SCH ×9 (20:49)
[2017-06-20] MEDS: [UNRECOGNIZED DRUG - OTHER] IV-CENTRAL SCH ×9 (20:49)
[2017-06-20] MEDS: FAT EMULSION 20% INJ 250 ML (@10 mls/hr) IV-CENTRAL SCH (20:54)
[2017-06-20] MEDS: ASPIRIN EC 81 MG TABEC PO SCH (20:59)
[2017-06-21] VITALS (9 sets, daily range): BP systolic 137–152; BP diastolic 78–87; PULSE 119–134; RESP 14–18; TEMP 98.1–98.9; O2SAT 92–97
[2017-06-21] MEDS: ONDANSETRON HCL 4 MG/2 ML VIAL IV PUSH PRN ×3 (01:51→19:58)
[2017-06-21] MEDS: HYDROmorphone HCL PF 1 MG/ML VIAL IV PUSH PRN ×9 (01:53→22:41)
[2017-06-21] MEDS: METOPROLOL TARTRATE 5 MG/5 ML VIAL IV PUSH SCH ×5 (03:59→19:58)
[2017-06-21 05:41] LABS: BICARBONATE 30.5 MEQ/L (21.0-32.0); POTASSIUM 4.1 MEQ/L (3.5-5.1)
[2017-06-21] MEDS: METOCLOPRAMIDE HCL 10 MG/2 ML VIAL IV PUSH SCH ×3 (05:55→22:41)
[2017-06-21] MEDS: ENOXAPARIN SODIUM 40 MG/0.4 ML SYRINGE SQ SCH (08:52)
[2017-06-21] MEDS: PANTOPRAZOLE SODIUM 40 MG VIAL IV PUSH SCH ×2 (08:55→20:00)
[2017-06-21] MEDS: SODIUM CHLORIDE 0.9% FLUSH 10 ML FLUSH IV FLUSH SCH ×3 (08:55→20:00)
[2017-06-21] MEDS: INSULIN DETEMIR 100 UNITS/ML VIAL SQ SCH ×2 (08:55→20:48)
--- NOTE | 2017-06-21 08:55 | HHI.PR ---
Subjective Remarks in chair good spirits bm 2 days ago. Objective Vitals in chair no labored breathing heart reg/tachy lung diminished bases abd firm/distended/peg to liws ext mild anasarca Vital Signs Date Time Temp Pulse Resp B/P (MAP) Pulse Ox O2 Delivery O2 Flow Rate FiO2 06/21/17 07:55 95 21 06/21/17 04:25 98.9 134 16 150/78 (102) 92 06/20/17 23:30 98.2 133 18 133/92 (106) 94 06/20/17 21:09 94 21 06/20/17 21:00 123 06/20/17 20:00 98.7 132 16 153/88 (109) 95 06/20/17 18:00 98.3 118 20 135/70 (91) 93 06/20/17 12:58 98.0 118 20 129/92 (104) 94 Result Diagram: 06/18/17 0600 06/21/17 0405 Imaging Last Impressions Abdomen Biopsy CT 06/04/17 0000 Signed Impressions: Service Date/Time: Sunday, June 04, 2017 14:57 - CONCLUSION: Uncomplicated CT guided biopsy of the omentum. Chilango Shaw MD Liver Ultrasound 06/02/17 0000 Signed Impressions: Service Date/Time: Friday, June 02, 2017 23:21 - CONCLUSION: 1. Cirrhosis 2. Possible mass right lobe of the liver. MRI is recommended for further evaluation if clinically indicated. 3. Moderate ascites Mert Paige MD Chest X-Ray 05/31/17 1557 Signed Impressions: Service Date/Time: Wednesday, May 31, 2017 16:05 - CONCLUSION: No acute disease. Ivan Lowe MD Abdomen/Pelvis CT 05/31/17 1403 Signed Impressions: Service Date/Time: Wednesday, May 31, 2017 14:41 - CONCLUSION: Ascites appears complex new from 03/23/17. Other than liver disease I don't see an etiology for such. If paracentesis is contemplated fluid should be sent for cytology. Tom Kellogg MD FACRADDENDUM: The above was reviewed. Of note, the patient is a stable 2 cm lesion in the medial aspect of the right hepatic lobe which shows rim enhancement, most characteristic of a benign hemangioma. Re\re aerating the above, there is stranding in the omentum which appears to be isolated. There is no associated anasarca or fluid in the mesenteric leaves. This appears to be a process isolated to the omentum itself. Although there are no discrete soft tissue lesions, findings could represent an interstitial or lymphatic type neoplastic process. Omental biopsy could be considered for further characterization. Jonathan Adame MD Cyst Biopsy Asp-Paracentesis US 05/31/17 0000 Signed Impressions: Service Date/Time: Wednesday, May 31, 2017 16:43 - CONCLUSION: Uncomplicated ultrasound guided paracentesis. Minimal fluid aspirated. 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 - Pt presented to the ED with complaints of worsening abdominal pain and distension. She states that she has been having issues with abd pain for the last 2 months. For the last 2 weeks she has been having increased generalized abd pain and distension which has been significantly worse over the last 2 days. - CT Abd/pelvis revealed ascites appears complex and new from 03/23/17. - She was previously seen in the ED on 03/[address] abd/pelvis at that time noted an 18mm lesion in the right lobe of the liver, with features favoring hemangioma. She was sent for followup as an outpt with GI. She had an MRI Abdomen W/O Contrast (05/13/17) with benign hemangioma in the caudate lobe of the liver corresponding to the lesion identified on CT otherwise normal examination. - Outpt workup with GI in April 2017 revealed positive ASMA, positive RACHELE, and RODRIGUEZ FibroSURE with fibrosis score of 0.04 (No fibrosis), Steatosis score of 0.78/S3 (marked or severe steatosis). Viral Hepatitis was negative. IgG subclasses were WNL, LKM Ab negative, AMA negative, Iron studies WNL, Ferritin 160 (slightly elevated), Ceruloplasmin WNL. Labs on 05/12/17 with AST 54, ALT 81, AlkPhos 92, Tbili 0.8 , DBili 0.2. autoimmune hepatitis was questioned. - Pt had diagnostic paracentesis on 05/31 with removal of 15cc of fluid - Cell count for the fluid noted WBC count 1657 - Fluid culture with no growth - cytology --> atypical epithelioid cells suspicious for malignancy - Repeat paracentesis 06/04/17 - 3,600ml of ascites removed - Ascitic Cell count: WBC 494, RBC 6525 - Fluid culture shows ngtd - cytology -->suspicious for malignant cells - Pt underwent Omental Biopsy (06/04/17) --> path suspicious for signet cell adenoca - EGD 06/11 --> antral ulcerated mass with near obstruction of outlet. 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 - Heme-Onc, Dr. Davis, is following. - She was started on palliative systemic therapy with FOLFOX to help debulk her tumor to relieve some of her gastric symptoms of obstruction - She received cycle 1 day 1 was 06/12/2017. - NGT placed for decompression for malignant bowel obstruction - General Surgery was consulted but its felt that currently the pt will not benefit from J tube and she will be unable to undergo enteral nutrition. - PICC line placed 06/11 and pt is on TPN - Pt developed sinus tachycardia with rates into the 140's, possibly secondary to physiological response related to her malignant/obstructive process and stopping her chronic bb. She was on Cardizem gtt with supplemental Lopressor IV. The Cardizem gtt has been stopped. unable to control with po lopressor. probably not absorbing ....cont iv lopressor - IR placed PEG tube on 06/16. removed ngt on 06/17 - PEG to gravity. - titrating up basal insulin and then add to tpn once controlled. -cont iv lasix and monitor bmp - DVT prophylaxis with Lovenox -PT consultation. -Pt pain level improved. cont fentanyl/dilaudid prn. wants to be dnr but will continue rx and hold off on hospice. (2) Sinus tachycardia ICD Codes: R00.0 - Tachycardia, unspecified Status: Acute Plan: - physiologic d/t pain and disease process - Pt only able to receive IV medication, see above - comgmt with Cardiology - increased IV lopressor to 5mg q4h (3) Abdominal pain ICD Codes: R10.9 - Unspecified abdominal pain Status: Acute Plan: - See above. (4) Ascites ICD Codes: R18.8 - Other ascites Status: Acute Plan: - See above (5) Hypertension ICD Codes: I10 - Essential (primary) hypertension Status: Chronic Plan: - See above (6) Hyperlipidemia ICD Codes: E78.5 - Hyperlipidemia, unspecified Status: Chronic Plan: - Statin was held as an outpt (7) CAD (coronary artery disease) ICD Codes: I25.10 - Atherosclerotic heart disease of zuni coronary artery without angina pectoris Status: Chronic Plan: - Pt with hx of CAD and NSTEMI in 2010 s/p stent in the RCA (8) Tobacco abuse ICD Codes: Z72.0 - Tobacco use Status: Chronic Problem Qualifiers (1) Abdominal pain: Qualified Codes: R10.84 - Generalized abdominal pain (2) Ascites: Qualified Codes: R18.8 - Other ascites Zach Briceno MD Jun 21, 2017 08:55
[2017-06-21] MEDS: INSULIN ASPART SUPPLEMENTAL SCALE SQ SCH ×4 (09:13→20:48)
[2017-06-21] MEDS ORDERED: FUROSEMIDE 20 MG/2 ML VIAL IV PUSH SCH (09:15)
--- NOTE | 2017-06-21 09:17 | PD.ONC.PN ---
Subjective Subjective Remarks Afebrile overnight. patient resting in bed, complaining of continued pain at site of PEG tube. states she was able to take in a few sips of broth. Feels her bowels will move today. Objective Data Date Time Temp Pulse Resp B/P (MAP) Pulse Ox O2 Delivery O2 Flow Rate FiO2 06/21/17 07:55 95 21 06/21/17 04:25 98.9 134 16 150/78 (102) 92 06/20/17 23:30 98.2 133 18 133/92 (106) 94 06/20/17 21:09 94 21 06/20/17 21:00 123 06/20/17 20:00 98.7 132 16 153/88 (109) 95 06/20/17 18:00 98.3 118 20 135/70 (91) 93 06/20/17 12:58 98.0 118 20 129/92 (104) 94 06/21/17 06/21/17 06/21/17 07:00 15:00 23:00 Intake Total 1170 ml Output Total 700 ml Balance 470 ml Result Diagram: 06/18/17 0600 06/21/17 0405 Laboratory Results Laboratory Tests Test 06/21/17 04:05 Blood Urea Nitrogen 18 MG/DL Creatinine 0.58 MG/DL Random Glucose 192 MG/DL Calcium Level 8.2 MG/DL Sodium Level 131 MEQ/L Potassium Level 4.1 MEQ/L Chloride Level 93 MEQ/L Carbon Dioxide Level 30.5 MEQ/L Anion Gap 8 MEQ/L Estimat Glomerular Filtration Rate 109 ML/MIN Administered Medications Medications (Trade) Dose Ordered Sig/Nelda Route PRN Reason Start Time Stop Time Status Last Admin Dose Admin Sodium Chloride (NS Flush) 2 ml UNSCH PRN IV FLUSH FLUSH AFTER USING IV ACCESS 05/31/17 16:00 06/15/17 03:23 Sodium Chloride (NS Flush) 2 ml BID IV FLUSH 05/31/17 21:00 06/20/17 19:37 Aspirin (Ecotrin Ec) 81 mg HS PO 05/31/17 21:00 06/19/17 20:25 Miscellaneous (Pill Splitter) 1 ea UNSCH PRN OTHER SEE LABEL COMMENTS 05/31/17 21:00 06/12/17 09:05 Ondansetron HCl (Zofran Inj) 4 mg Q4H PRN IV PUSH NAUSEA 06/07/17 21:00 06/21/17 01:51 Pantoprazole Sodium (Protonix Inj) 40 mg Q12H IV PUSH 06/08/17 21:00 06/20/17 19:24 Fat Emulsion Intravenous 250 ml @ 10 mls/hr Q24H IV-CENTRAL 06/10/17 20:00 06/20/17 20:54 Phenol (Chloraseptic [place]) 2 spray Q2H PRN OROPHARYNG throat pain 06/11/17 12:00 06/12/17 02:47 Sodium Chloride (NS Flush) See Protocol DAILY IV FLUSH 06/12/17 09:00 06/20/17 12:55 Heparin Sodium (Porcine) (Heparin Central Flush) See Protocol DAILY IV FLUSH 06/12/17 09:00 06/18/17 09:20 Sodium Chloride (NS Flush) UNSCH PRN IV FLUSH SEE PROTOCOL TABLE 06/11/17 12:30 06/13/17 23:18 Metoclopramide HCl (Reglan Inj) 5 mg Q8HR IV PUSH 06/13/17 14:00 06/21/17 05:55 Enoxaparin Sodium (Lovenox Inj) 40 mg Q24H SQ 06/13/17 08:15 Future hold 06/20/17 07:47 Ciprofloxacin/ Dextrose 200 ml @ 200 mls/hr Q12H IV 06/13/17 12:00 06/20/17 23:34 Lorazepam (Ativan Inj) 0.5 mg Q6H PRN IV PUSH nausea/anxiety 06/13/17 14:45 06/17/17 16:34 Insulin Detemir (Levemir Inj) 30 units Q12HR SQ 06/18/17 09:00 06/20/17 20:28 Insulin Aspart (NovoLOG SUPPLEMENTAL SCALE) 1 ACHS SLIDING SCALE SQ 06/18/17 08:00 06/20/17 20:28 Hydromorphone HCl (Dilaudid Pf Inj) 1 mg Q2H PRN IV PUSH pain 3-10 06/19/17 09:00 06/21/17 05:57 Sodium Chloride 11 meq/Sodium Acetate 59 meq/ Potassium Chloride 120 meq/ Sodium Phosphate 40 meq/Magnesium Chloride 10 meq/ Calcium Chloride 9 meq/ Multivitamins 10 ml/Folic Acid 1 mg/Amino Acids/ Dextrose 2,124.1437 ml @ 75 mls/hr Q24H IV-CENTRAL 06/19/17 20:00 06/20/17 20:49 Metoprolol Tartrate (Lopressor Inj) 5 mg Q4H IV PUSH 06/20/17 12:00 06/21/17 03:59 Objective Remarks GENERAL: Fatigued female lying in bed, complaining of pain. SKIN: Warm and dry. HEAD: Normocephalic. EYES: No injection or drainage. NECK: Supple, trachea midline. CARDIOVASCULAR: +S1/S2. tachy RESPIRATORY: anterior zurita clear. GASTROINTESTINAL: Abdomen distended. G-tube to wall suction, draining bile. EXTREMITIES: No cyanosis. MUSCULOSKELETAL: Generalized weakness NEUROLOGICAL: awake and alert. normal speech. Assessment/Plan Assessment Ms. Vicente is a 52-year-old female with a 2.5 month history of progressive epigastric pain, nausea, vomiting and abdominal distension. She was noted on imaging studies on 06/10/2017 to have omental thickening and ascites. Omental biopsy revealed findings highly concerning for a high-grade adenocarcinoma with signet cell features. An EGD ensued and the EGD revealed an antral mass involving the gastric wall associated with ulceration and thickening. 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 Her major complaints are that of abdominal distension, pain and nausea. Plan 1. 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 +bowel obstruction or partial bowel obstruction at the level of the antrum due to the primary tumor +small bowel obstruction due to peritoneal carcinomatosis. --++PEG tube to intermittent wall suction for gastric decompression. --treated with palliative systemic therapy with FOLFOX to help debulk her tumor to relieve some of her gastric symptoms of obstruction; cycle 1 day 1 was 2016, infusion completed on 06/14/2017. --awaiting HER-2/cristina staining on her disease 2. sinus tachycardia: Cardiology following. On Lopressor Q4H IV. 3. Pain management: on Fentanyl 50mcg TD q 72 hours. Receives Dilaudid IV for breakthrough 4. Nutrition: remains on TPN as she is only able to take in small amounts of clear liquid diet. Aline Thao Jun 21, 2017 09:17
[2017-06-21] MEDS ORDERED: BISACODYL 10 MG SUPP RECTAL PRN (10:00)
[2017-06-21 10:09] LABS: BASOPHIL # 0.1 TH/MM3 (0-0.2); BASOPHIL % 0.3 % (0.0-2.0); EOSINOPHIL # 0.1 TH/MM3 (0-0.4); EOSINOPHIL % 0.6 % (0.0-4.0); HEMATOCRIT 31.4 % (35.0-46.0); HEMO FLAGS DIFF FINAL; LYMPH % 8.2 % (9.0-44.0); LYMPHOCYTE # 1.3 TH/MM3 (1.0-4.8); MEAN CELL VOLUME 101.8 FL (80.0-100.0); MEAN CORPUSCULAR HEMOGLOBIN 31.7 PG (27.0-34.0); MEAN CORPUSCULAR HGB CONC 31.1 % (32.0-36.0); MONO % 8.8 % (0.0-8.0); NEUT % 82.1 % (16.0-70.0); PLATELET COUNT 219 TH/MM3 (150-450); RED BLOOD COUNT 3.09 MIL/MM3 (4.00-5.30); RED CELL DISTRIBUTION WIDTH 16.8 % (11.6-17.2); WHITE BLOOD COUNT 15.9 TH/MM3 (4.0-11.0)
[2017-06-21] MEDS: CIPROFLOXACIN 400 MG PREMIX 200 ML IV SCH (12:24)
[2017-06-21] MEDS: SODIUM ACETATE IV-CENTRAL SCH ×9 (19:59)
[2017-06-21] MEDS: [UNRECOGNIZED DRUG - OTHER] IV-CENTRAL SCH ×9 (19:59)
[2017-06-21] MEDS: ASPIRIN EC 81 MG TABEC PO SCH (19:59)
[2017-06-21] MEDS: FAT EMULSION 20% INJ 250 ML (@10 mls/hr) IV-CENTRAL SCH (19:59)
[2017-06-21] MEDS: DOCUSATE SODIUM 100 MG CAP PO SCH (19:59)
[2017-06-21] MEDS: SODIUM CHLORIDE IV-CENTRAL SCH ×9 (19:59)
[2017-06-22] VITALS (11 sets, daily range): BP systolic 116–156; BP diastolic 75–92; PULSE 122–138; RESP 18–20; TEMP 98–100.9; O2SAT 92–98
[2017-06-22] MEDS: CIPROFLOXACIN 400 MG PREMIX 200 ML IV SCH ×2 (00:20→13:59)
[2017-06-22] MEDS: METOPROLOL TARTRATE 5 MG/5 ML VIAL IV PUSH SCH ×6 (00:20→20:49)
[2017-06-22] MEDS: ONDANSETRON HCL 4 MG/2 ML VIAL IV PUSH PRN ×3 (02:11→15:59)
[2017-06-22] MEDS: HYDROmorphone HCL PF 1 MG/ML VIAL IV PUSH PRN ×7 (03:09→21:35)
[2017-06-22] MEDS: METOCLOPRAMIDE HCL 10 MG/2 ML VIAL IV PUSH SCH ×3 (05:14→21:35)
[2017-06-22 05:45] LABS: BICARBONATE 30.3 MEQ/L (21.0-32.0); POTASSIUM 4.1 MEQ/L (3.5-5.1)
--- NOTE | 2017-06-22 08:21 | PD.ONC.PN ---
Subjective Subjective Remarks Patient seen and examined, vital signs, labs, medications reviewed. Subjectively; patient reports continued pain in the site of feeding tube placement. She tells me she gets quite out of breath and tired even by getting out of bed to the bedside commode. She continues to try to take sips of clear liquids, the PEG tube remains on intermittent wall suction and is draining gastric contents and bile. Her abdomen remains diffusely tender and distended as well as firm. Patient tells me she is considering various retirement facility/ rehabilitation facilities for post-hospitalization care. Objective Data Date Time Temp Pulse Resp B/P (MAP) Pulse Ox O2 Delivery O2 Flow Rate FiO2 06/22/17 04:00 98.2 130 19 150/81 (104) 92 06/22/17 00:00 98.0 135 19 137/75 (95) 95 06/21/17 20:11 129 06/21/17 20:09 97 21 06/21/17 20:00 98.1 133 18 152/87 (108) 96 06/21/17 17:00 98.2 120 14 137/80 (99) 94 06/21/17 12:36 98.3 120 16 141/82 (101) 93 06/21/17 08:30 98.1 119 14 152/83 (106) 93 06/22/17 06/22/17 06/22/17 07:00 15:00 23:00 Intake Total 120 ml Output Total 450 ml Balance -330 ml Result Diagram: 06/21/17 0945 06/22/17 0415 Laboratory Results Laboratory Tests Test 06/21/17 09:45 06/22/17 04:15 White Blood Count 15.9 TH/MM3 Red Blood Count 3.09 MIL/MM3 Hemoglobin 9.8 GM/DL Hematocrit 31.4 % Mean Corpuscular Volume 101.8 FL Mean Corpuscular Hemoglobin 31.7 PG Mean Corpuscular Hemoglobin Concent 31.1 % Red Cell Distribution Width 16.8 % Platelet Count 219 TH/MM3 Mean Platelet Volume 8.1 FL Neutrophils (%) (Auto) 82.1 % Lymphocytes (%) (Auto) 8.2 % Monocytes (%) (Auto) 8.8 % Eosinophils (%) (Auto) 0.6 % Basophils (%) (Auto) 0.3 % Neutrophils # (Auto) 13.0 TH/MM3 Lymphocytes # (Auto) 1.3 TH/MM3 Monocytes # (Auto) 1.4 TH/MM3 Eosinophils # (Auto) 0.1 TH/MM3 Basophils # (Auto) 0.1 TH/MM3 CBC Comment DIFF FINAL Differential Comment Blood Urea Nitrogen 16 MG/DL Creatinine 0.51 MG/DL Random Glucose 178 MG/DL Calcium Level 8.0 MG/DL Sodium Level 132 MEQ/L Potassium Level 4.1 MEQ/L Chloride Level 94 MEQ/L Carbon Dioxide Level 30.3 MEQ/L Anion Gap 8 MEQ/L Estimat Glomerular Filtration Rate 127 ML/MIN Administered Medications Medications (Trade) Dose Ordered Sig/Nelda Route PRN Reason Start Time Stop Time Status Last Admin Dose Admin Sodium Chloride (NS Flush) 2 ml UNSCH PRN IV FLUSH FLUSH AFTER USING IV ACCESS 05/31/17 16:00 06/15/17 03:23 Sodium Chloride (NS Flush) 2 ml BID IV FLUSH 05/31/17 21:00 06/21/17 08:55 Aspirin (Ecotrin Ec) 81 mg HS PO 05/31/17 21:00 06/21/17 19:59 Miscellaneous (Pill Splitter) 1 ea UNSCH PRN OTHER SEE LABEL COMMENTS 05/31/17 21:00 06/12/17 09:05 Ondansetron HCl (Zofran Inj) 4 mg Q4H PRN IV PUSH NAUSEA 06/07/17 21:00 06/22/17 02:11 Pantoprazole Sodium (Protonix Inj) 40 mg Q12H IV PUSH 06/08/17 21:00 06/21/17 20:00 Fat Emulsion Intravenous 250 ml @ 10 mls/hr Q24H IV-CENTRAL 06/10/17 20:00 06/21/17 19:59 Phenol (Chloraseptic [place]) 2 spray Q2H PRN OROPHARYNG throat pain 06/11/17 12:00 06/12/17 02:47 Sodium Chloride (NS Flush) See Protocol DAILY IV FLUSH 06/12/17 09:00 06/21/17 08:55 Heparin Sodium (Porcine) (Heparin Central Flush) See Protocol DAILY IV FLUSH 06/12/17 09:00 06/18/17 09:20 Sodium Chloride (NS Flush) UNSCH PRN IV FLUSH SEE PROTOCOL TABLE 06/11/17 12:30 06/13/17 23:18 Metoclopramide HCl (Reglan Inj) 5 mg Q8HR IV PUSH 06/13/17 14:00 06/22/17 05:14 Enoxaparin Sodium (Lovenox Inj) 40 mg Q24H SQ 06/13/17 08:15 Future hold 06/21/17 08:52 Ciprofloxacin/ Dextrose 200 ml @ 200 mls/hr Q12H IV 06/13/17 12:00 06/22/17 00:20 Lorazepam (Ativan Inj) 0.5 mg Q6H PRN IV PUSH nausea/anxiety 06/13/17 14:45 06/17/17 16:34 Insulin Detemir (Levemir Inj) 30 units Q12HR SQ 06/18/17 09:00 06/21/17 20:48 Insulin Aspart (NovoLOG SUPPLEMENTAL SCALE) 1 ACHS SLIDING SCALE SQ 06/18/17 08:00 06/21/17 20:48 Hydromorphone HCl (Dilaudid Pf Inj) 1 mg Q2H PRN IV PUSH pain 3-10 06/19/17 09:00 06/22/17 05:14 Sodium Chloride 11 meq/Sodium Acetate 59 meq/ Potassium Chloride 120 meq/ Sodium Phosphate 40 meq/Magnesium Chloride 10 meq/ Calcium Chloride 9 meq/ Multivitamins 10 ml/Folic Acid 1 mg/Amino Acids/ Dextrose 2,124.1437 ml @ 75 mls/hr Q24H IV-CENTRAL 06/19/17 20:00 06/21/17 19:59 Metoprolol Tartrate (Lopressor Inj) 5 mg Q4H IV PUSH 06/20/17 12:00 06/22/17 04:18 Furosemide (Lasix Inj) 20 mg DAILY IV PUSH 06/21/17 09:15 06/21/17 12:24 Docusate Sodium (Colace) 100 mg BID PO 06/21/17 21:00 06/21/17 19:59 Objective Remarks Ms. Vicente is a middle-aged female. She is sitting up in bed. she appears to be Uncomfortable, she is arousable and alert. NG tube has been removed from the left nostril. HEENT: Head atraumatic, normocephalic, conjunctivae are mildly pale, sclerae are anicteric, EOMI, PERRLA, oral exam no pharyngeal erythema. NECK: No palpable cervical or supraclavicular lymphadenopathy. RESPIRATORY: Decreased bibasilar breath sounds. Good air movement over the upper and middle lung zones. No wheezing or rhonchi. CARDIOVASCULAR: tachycardia, regular, S1-S2. No obvious murmurs, rubs or gallops. Heart rate sustained in the 120-130 bpm range. ABDOMEN: Distended abdomen, firm, tender to mild palpation, no obvious organ enlargement noted. Free fluid is noted within the abdomen. Interval placement of a percutaneous gastrostomy tube. The gastrostomy tube is draining gastric contents. LOWER EXTREMITIES: Bilateral pretibial edema, no calf tenderness. MUSCULOSKELETAL: Good muscle mass, tone and strength. WINDOW SHADE RING SEWER: No focal sensory motor deficits. Assessment/Plan Assessment Ms. Vicente is a 52-year-old female with a 2.5 month history of progressive epigastric pain, nausea, vomiting and abdominal distension. She was noted on imaging studies on 06/10/2017 to have omental thickening and ascites. Omental biopsy revealed findings highly concerning for a high-grade adenocarcinoma with signet cell features. An EGD ensued and the EGD revealed an antral mass involving the gastric wall associated with ulceration and thickening. 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 Her major complaints are that of abdominal distension, pain and nausea. Plan 1. 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 Bowel obstruction or partial at the level of the antrum due to the primary tumor and small bowel obstruction due to peritoneal carcinomatosis. PEG tube to intermittent wall suction for gastric decompression. Treated with palliative systemic therapy with FOLFOX to help debulk her tumor to relieve some of her gastric symptoms of obstruction; cycle 1 day 1 was 2016, infusion completed on 06/14/2017. Awaiting HER-2/cristina staining on her disease. 2. Sinus tachycardia: Cardiology following. On Lopressor Q4H IV. 3. Pain management: on Fentanyl 50mcg TD q 72 hours. Receives Dilaudid IV for breakthrough. 4. Nutrition: remains on TPN as she is only able to take in small amounts of clear liquid diet. May transfer to retirement facility, I will arrange outpatient follow-up with myself either later this week or early next week for resumption of outpatient systemic therapy. Memo Davis MD Jun 22, 2017 08:21
--- NOTE | 2017-06-22 08:38 | HHI.PR ---
Subjective Remarks feels like she will move her bowels today no new complaints. she is looking at snf options. Objective Vitals heart reg lung diminished bases abd peg/firm abdomen/minimal bs ext no pitting picc. Vital Signs Date Time Temp Pulse Resp B/P (MAP) Pulse Ox O2 Delivery O2 Flow Rate FiO2 06/22/17 04:00 98.2 130 19 150/81 (104) 92 06/22/17 00:00 98.0 135 19 137/75 (95) 95 06/21/17 20:11 129 06/21/17 20:09 97 21 06/21/17 20:00 98.1 133 18 152/87 (108) 96 06/21/17 17:00 98.2 120 14 137/80 (99) 94 06/21/17 12:36 98.3 120 16 141/82 (101) 93 Result Diagram: 06/21/17 0945 06/22/17 0415 Imaging Last Impressions Abdomen Biopsy CT 06/04/17 0000 Signed Impressions: Service Date/Time: Sunday, June 04, 2017 14:57 - CONCLUSION: Uncomplicated CT guided biopsy of the omentum. Chilango Shaw MD Liver Ultrasound 06/02/17 0000 Signed Impressions: Service Date/Time: Friday, June 02, 2017 23:21 - CONCLUSION: 1. Cirrhosis 2. Possible mass right lobe of the liver. MRI is recommended for further evaluation if clinically indicated. 3. Moderate ascites Mert Paige MD Chest X-Ray 05/31/17 1557 Signed Impressions: Service Date/Time: Wednesday, May 31, 2017 16:05 - CONCLUSION: No acute disease. Ivan Lowe MD Abdomen/Pelvis CT 05/31/17 1403 Signed Impressions: Service Date/Time: Wednesday, May 31, 2017 14:41 - CONCLUSION: Ascites appears complex new from 03/23/17. Other than liver disease I don't see an etiology for such. If paracentesis is contemplated fluid should be sent for cytology. Tom Kellogg MD FACRADDENDUM: The above was reviewed. Of note, the patient is a stable 2 cm lesion in the medial aspect of the right hepatic lobe which shows rim enhancement, most characteristic of a benign hemangioma. Re\re aerating the above, there is stranding in the omentum which appears to be isolated. There is no associated anasarca or fluid in the mesenteric leaves. This appears to be a process isolated to the omentum itself. Although there are no discrete soft tissue lesions, findings could represent an interstitial or lymphatic type neoplastic process. Omental biopsy could be considered for further characterization. Jonathan Adame MD Cyst Biopsy Asp-Paracentesis US 05/31/17 0000 Signed Impressions: Service Date/Time: Wednesday, May 31, 2017 16:43 - CONCLUSION: Uncomplicated ultrasound guided paracentesis. Minimal fluid aspirated. 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 - Pt presented to the ED with complaints of worsening abdominal pain and distension. She states that she has been having issues with abd pain for the last 2 months. For the last 2 weeks she has been having increased generalized abd pain and distension which has been significantly worse over the last 2 days. - CT Abd/pelvis revealed ascites appears complex and new from 03/23/17. - She was previously seen in the ED on 03/[address] abd/pelvis at that time noted an 18mm lesion in the right lobe of the liver, with features favoring hemangioma. She was sent for followup as an outpt with GI. She had an MRI Abdomen W/O Contrast (05/13/17) with benign hemangioma in the caudate lobe of the liver corresponding to the lesion identified on CT otherwise normal examination. - Outpt workup with GI in April 2017 revealed positive ASMA, positive RACHELE, and RODRIGUEZ FibroSURE with fibrosis score of 0.04 (No fibrosis), Steatosis score of 0.78/S3 (marked or severe steatosis). Viral Hepatitis was negative. IgG subclasses were WNL, LKM Ab negative, AMA negative, Iron studies WNL, Ferritin 160 (slightly elevated), Ceruloplasmin WNL. Labs on 05/12/17 with AST 54, ALT 81, AlkPhos 92, Tbili 0.8 , DBili 0.2. autoimmune hepatitis was questioned. - Pt had diagnostic paracentesis on 05/31 with removal of 15cc of fluid - Cell count for the fluid noted WBC count 1657 - Fluid culture with no growth - cytology --> atypical epithelioid cells suspicious for malignancy - Repeat paracentesis 06/04/17 - 3,600ml of ascites removed - Ascitic Cell count: WBC 494, RBC 6525 - Fluid culture shows ngtd - cytology -->suspicious for malignant cells - Pt underwent Omental Biopsy (06/04/17) --> path suspicious for signet cell adenoca - EGD 06/11 --> antral ulcerated mass with near obstruction of outlet. 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 - Heme-Onc, Dr. Davis, is following. - She was started on palliative systemic therapy with FOLFOX to help debulk her tumor to relieve some of her gastric symptoms of obstruction - She received cycle 1 day 1 was 06/12/2017. - NGT placed for decompression for malignant bowel obstruction - General Surgery was consulted but its felt that currently the pt will not benefit from J tube and she will be unable to undergo enteral nutrition. - PICC line placed 06/11 and pt is on TPN - Pt developed sinus tachycardia with rates into the 140's, possibly secondary to physiological response related to her malignant/obstructive process and stopping her chronic bb. She was on Cardizem gtt with supplemental Lopressor IV. The Cardizem gtt has been stopped. unable to control with po lopressor. probably not absorbing ....cont iv lopressor - IR placed PEG tube on 06/16. removed ngt on 06/17 - PEG to gravity. - titrating up basal insulin and then add to tpn once controlled. -cont iv lasix and monitor bmp - DVT prophylaxis with Lovenox -PT consultation. -Pt pain level improved. cont fentanyl. she will wean off dilaudid. she is agreeable to snf...I think we will make an effort to get her to a snf after her next chemotherapy. We will need tpn and peg management at the snf. We will make another effort to get her off the iv lopressor but this is obviously a barrier. she is dnr. (2) Sinus tachycardia ICD Codes: R00.0 - Tachycardia, unspecified Status: Acute Plan: - physiologic d/t pain and disease process - Pt only able to receive IV medication, see above - comgmt with Cardiology - increased IV lopressor to 5mg q4h (3) Abdominal pain ICD Codes: R10.9 - Unspecified abdominal pain Status: Acute Plan: - See above. (4) Ascites ICD Codes: R18.8 - Other ascites Status: Acute Plan: - See above (5) Hypertension ICD Codes: I10 - Essential (primary) hypertension Status: Chronic Plan: - See above (6) Hyperlipidemia ICD Codes: E78.5 - Hyperlipidemia, unspecified Status: Chronic Plan: - Statin was held as an outpt (7) CAD (coronary artery disease) ICD Codes: I25.10 - Atherosclerotic heart disease of [place] coronary artery without angina pectoris Status: Chronic Plan: - Pt with hx of CAD and NSTEMI in 2010 s/p stent in the RCA (8) Tobacco abuse ICD Codes: Z72.0 - Tobacco use Status: Chronic Assessment and Plan Patient examined. Assessment and plan formulated with Rosemary Fong PA-C. I agree with the above. Problem Qualifiers (1) Abdominal pain: Qualified Codes: R10.84 - Generalized abdominal pain (2) Ascites: Qualified Codes: R18.8 - Other ascites Zach Briceno MD Jun 22, 2017 08:38
[2017-06-22] MEDS: REMOVE OLD DURAGESIC (FENTANYL) PATCH T-DERMAL SCH (09:00)
[2017-06-22] MEDS: SODIUM CHLORIDE 0.9% FLUSH 10 ML FLUSH IV FLUSH SCH ×3 (09:00→21:05)
[2017-06-22] MEDS: DOCUSATE SODIUM 100 MG CAP PO SCH ×2 (09:00→21:51)
[2017-06-22] MEDS: ENOXAPARIN SODIUM 40 MG/0.4 ML SYRINGE SQ SCH (09:53)
[2017-06-22] MEDS: INSULIN ASPART SUPPLEMENTAL SCALE SQ SCH ×4 (09:54→21:00)
[2017-06-22] MEDS: INSULIN DETEMIR 100 UNITS/ML VIAL SQ SCH ×2 (09:54→22:21)
[2017-06-22] MEDS: fentaNYL 50 MCG/HR PATCH T-DERMAL SCH (09:55)
[2017-06-22] MEDS: FUROSEMIDE 20 MG/2 ML VIAL IV PUSH SCH ×2 (09:55→17:51)
[2017-06-22] MEDS: PANTOPRAZOLE SODIUM 40 MG VIAL IV PUSH SCH ×2 (09:56→21:52)
[2017-06-22] MEDS: FAT EMULSION 20% INJ 250 ML (@10 mls/hr) IV-CENTRAL SCH (21:39)
[2017-06-22] MEDS: SODIUM ACETATE IV-CENTRAL SCH ×9 (21:40)
[2017-06-22] MEDS: SODIUM CHLORIDE IV-CENTRAL SCH ×9 (21:40)
[2017-06-22] MEDS: [UNRECOGNIZED DRUG - OTHER] IV-CENTRAL SCH ×9 (21:40)
[2017-06-22] MEDS: ASPIRIN EC 81 MG TABEC PO SCH (21:52)
[2017-06-23] VITALS (16 sets, daily range): BP systolic 127–159; BP diastolic 69–93; PULSE 116–138; RESP 16–22; TEMP 97.8–99.2; O2SAT 94–98
[2017-06-23] MEDS: METOPROLOL TARTRATE 5 MG/5 ML VIAL IV PUSH SCH ×7 (01:04→23:56)
[2017-06-23] MEDS: CIPROFLOXACIN 400 MG PREMIX 200 ML IV SCH (01:18)
[2017-06-23] MEDS: ONDANSETRON HCL 4 MG/2 ML VIAL IV PUSH PRN ×2 (01:39→11:48)
[2017-06-23] MEDS: HYDROmorphone HCL PF 1 MG/ML VIAL IV PUSH PRN ×9 (01:45→23:55)
[2017-06-23] MEDS: METOCLOPRAMIDE HCL 10 MG/2 ML VIAL IV PUSH SCH ×3 (06:22→20:25)
--- NOTE | 2017-06-23 08:18 | HHI.PR ---
Subjective Remarks more white drainage foul odor from around the peg. had bm yesterday Objective Vitals nad heart reg. tachy lung diminished bases abd peg..white drainage around the peg foul odor. ext no pitting picc. Vital Signs Date Time Temp Pulse Resp B/P (MAP) Pulse Ox O2 Delivery O2 Flow Rate FiO2 06/23/17 04:46 116 141/88 (105) 97 06/23/17 04:36 128 143/82 (102) 96 06/23/17 04:24 99.1 128 18 150/84 (106) 96 06/23/17 04:03 132 06/23/17 01:47 124 127/79 (95) 96 06/23/17 01:30 128 148/90 (109) 06/23/17 01:16 124 159/89 (112) 06/23/17 01:10 124 134/84 (101) 06/23/17 00:59 99.2 136 16 150/82 (104) 95 06/23/17 00:11 132 06/22/17 21:55 128 135/84 (101) 93 06/22/17 21:35 126 116/77 (90) 93 06/22/17 21:18 127 136/86 (103) 06/22/17 21:02 124 139/85 (103) 06/22/17 20:46 100.9 138 18 156/92 (113) 97 06/22/17 20:04 132 06/22/17 17:20 98.5 122 18 140/80 (100) 97 06/22/17 12:36 98.0 130 20 143/92 (109) 98 06/22/17 08:45 98.8 122 20 147/82 (103) 94 Result Diagram: 06/21/17 0945 06/22/17 0415 Imaging Last Impressions Abdomen Biopsy CT 06/04/17 0000 Signed Impressions: Service Date/Time: Sunday, June 04, 2017 14:57 - CONCLUSION: Uncomplicated CT guided biopsy of the omentum. Chilango Shaw MD Liver Ultrasound 06/02/17 0000 Signed Impressions: Service Date/Time: Friday, June 02, 2017 23:21 - CONCLUSION: 1. Cirrhosis 2. Possible mass right lobe of the liver. MRI is recommended for further evaluation if clinically indicated. 3. Moderate ascites Mert Paige MD Chest X-Ray 05/31/17 1557 Signed Impressions: Service Date/Time: Wednesday, May 31, 2017 16:05 - CONCLUSION: No acute disease. Ivan Lowe MD Abdomen/Pelvis CT 05/31/17 1403 Signed Impressions: Service Date/Time: Wednesday, May 31, 2017 14:41 - CONCLUSION: Ascites appears complex new from 03/23/17. Other than liver disease I don't see an etiology for such. If paracentesis is contemplated fluid should be sent for cytology. Tom Kellogg MD FACRADDENDUM: The above was reviewed. Of note, the patient is a stable 2 cm lesion in the medial aspect of the right hepatic lobe which shows rim enhancement, most characteristic of a benign hemangioma. Re\re aerating the above, there is stranding in the omentum which appears to be isolated. There is no associated anasarca or fluid in the mesenteric leaves. This appears to be a process isolated to the omentum itself. Although there are no discrete soft tissue lesions, findings could represent an interstitial or lymphatic type neoplastic process. Omental biopsy could be considered for further characterization. Jonathan Adame MD Cyst Biopsy Asp-Paracentesis US 05/31/17 0000 Signed Impressions: Service Date/Time: Wednesday, May 31, 2017 16:43 - CONCLUSION: Uncomplicated ultrasound guided paracentesis. Minimal fluid aspirated. 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 - Pt presented to the ED with complaints of worsening abdominal pain and distension. She states that she has been having issues with abd pain for the last 2 months. For the last 2 weeks she has been having increased generalized abd pain and distension which has been significantly worse over the last 2 days. - CT Abd/pelvis revealed ascites appears complex and new from 03/23/17. - She was previously seen in the ED on 03/[address] abd/pelvis at that time noted an 18mm lesion in the right lobe of the liver, with features favoring hemangioma. She was sent for followup as an outpt with GI. She had an MRI Abdomen W/O Contrast (05/13/17) with benign hemangioma in the caudate lobe of the liver corresponding to the lesion identified on CT otherwise normal examination. - Outpt workup with GI in April 2017 revealed positive ASMA, positive RACHELE, and RODRIGUEZ FibroSURE with fibrosis score of 0.04 (No fibrosis), Steatosis score of 0.78/S3 (marked or severe steatosis). Viral Hepatitis was negative. IgG subclasses were WNL, LKM Ab negative, AMA negative, Iron studies WNL, Ferritin 160 (slightly elevated), Ceruloplasmin WNL. Labs on 05/12/17 with AST 54, ALT 81, AlkPhos 92, Tbili 0.8 , DBili 0.2. autoimmune hepatitis was questioned. - Pt had diagnostic paracentesis on 05/31 with removal of 15cc of fluid - Cell count for the fluid noted WBC count 1657 - Fluid culture with no growth - cytology --> atypical epithelioid cells suspicious for malignancy - Repeat paracentesis 06/04/17 - 3,600ml of ascites removed - Ascitic Cell count: WBC 494, RBC 6525 - Fluid culture shows ngtd - cytology -->suspicious for malignant cells - Pt underwent Omental Biopsy (06/04/17) --> path suspicious for signet cell adenoca - EGD 06/11 --> antral ulcerated mass with near obstruction of outlet. 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 - Heme-Onc, Dr. Davis, is following. - She was started on palliative systemic therapy with FOLFOX to help debulk her tumor to relieve some of her gastric symptoms of obstruction - She received cycle 1 day 1 was 06/12/2017. - NGT placed for decompression for malignant bowel obstruction - General Surgery was consulted but its felt that currently the pt will not benefit from J tube and she will be unable to undergo enteral nutrition. - PICC line placed 06/11 and pt is on TPN - Pt developed sinus tachycardia with rates into the 140's, possibly secondary to physiological response related to her malignant/obstructive process and stopping her chronic bb. She was on Cardizem gtt with supplemental Lopressor IV. The Cardizem gtt has been stopped. unable to control with po lopressor. probably not absorbing ....cont iv lopressor - IR placed PEG tube on 06/16. removed ngt on 06/17 - PEG to gravity. - titrating up basal insulin and then add to tpn once controlled. -cont iv lasix and monitor bmp - DVT prophylaxis with Lovenox -PT consultation. -Pt pain level improved. cont fentanyl. she will wean off dilaudid. she is agreeable to snf...I think we will make an effort to get her to a snf after her next chemotherapy. We will need tpn and peg management at the snf. We will make another effort to get her off the iv lopressor but this is obviously a barrier. she is dnr. -Pt says yesterday was her best day. Peg site appears infected today. get culture, topical abx and dressing. pt was already on cipro with low grade fever... will change to cefepime. add systemic mrsa coverage as needed. (2) Sinus tachycardia ICD Codes: R00.0 - Tachycardia, unspecified Status: Acute Plan: - physiologic d/t pain and disease process - Pt only able to receive IV medication, see above - comgmt with Cardiology - increased IV lopressor to 5mg q4h (3) Abdominal pain ICD Codes: R10.9 - Unspecified abdominal pain Status: Acute Plan: - See above. (4) Ascites ICD Codes: R18.8 - Other ascites Status: Acute Plan: - See above (5) Hypertension ICD Codes: I10 - Essential (primary) hypertension Status: Chronic Plan: - See above (6) Hyperlipidemia ICD Codes: E78.5 - Hyperlipidemia, unspecified Status: Chronic Plan: - Statin was held as an outpt (7) CAD (coronary artery disease) ICD Codes: I25.10 - Atherosclerotic heart disease of [place] coronary artery without angina pectoris Status: Chronic Plan: - Pt with hx of CAD and NSTEMI in 2010 s/p stent in the RCA (8) Tobacco abuse ICD Codes: Z72.0 - Tobacco use Status: Chronic Assessment and Plan Patient examined. Assessment and plan formulated with Rosemary Fong PA-C. I agree with the above. Problem Qualifiers (1) Abdominal pain: Qualified Codes: R10.84 - Generalized abdominal pain (2) Ascites: Qualified Codes: R18.8 - Other ascites Zach Briceno MD Jun 23, 2017 08:17
[2017-06-23] MEDS: DOCUSATE SODIUM 100 MG CAP PO SCH ×2 (09:00→20:24)
[2017-06-23] MEDS: SODIUM CHLORIDE 0.9% FLUSH 10 ML FLUSH IV FLUSH SCH ×3 (09:08→21:43)
[2017-06-23] MEDS: FUROSEMIDE 20 MG/2 ML VIAL IV PUSH SCH ×2 (09:09→17:21)
[2017-06-23] MEDS: PANTOPRAZOLE SODIUM 40 MG VIAL IV PUSH SCH ×2 (09:09→20:25)
[2017-06-23] MEDS: INSULIN DETEMIR 100 UNITS/ML VIAL SQ SCH ×2 (09:11→21:43)
[2017-06-23] MEDS: ENOXAPARIN SODIUM 40 MG/0.4 ML SYRINGE SQ SCH (09:11)
[2017-06-23] MEDS: INSULIN ASPART SUPPLEMENTAL SCALE SQ SCH ×4 (09:12→21:00)
[2017-06-23] MEDS: CEFEPIME INJ 2,000 MG in SODIUM CHLORIDE 0.9% INJ 100 ML IV SCH ×2 (11:49→20:27)
[2017-06-23] MEDS: MUPIROCIN 2% OINT 22 GM TUBE TOPICAL SCH ×3 (11:49→20:27)
[2017-06-23] MEDS: ASPIRIN EC 81 MG TABEC PO SCH (20:24)
[2017-06-23] MEDS: SODIUM ACETATE IV-CENTRAL SCH ×9 (20:26)
[2017-06-23] MEDS: FAT EMULSION 20% INJ 250 ML (@10 mls/hr) IV-CENTRAL SCH (20:26)
[2017-06-23] MEDS: SODIUM CHLORIDE IV-CENTRAL SCH ×9 (20:26)
[2017-06-23] MEDS: [UNRECOGNIZED DRUG - OTHER] IV-CENTRAL SCH ×9 (20:26)
[2017-06-24] VITALS (12 sets, daily range): BP systolic 120–154; BP diastolic 64–89; PULSE 78–139; RESP 16–20; TEMP 98.4–99.2; O2SAT 91–100
[2017-06-24] MEDS: HYDROmorphone HCL PF 1 MG/ML VIAL IV PUSH PRN ×8 (02:09→22:00)
[2017-06-24] MEDS: METOCLOPRAMIDE HCL 10 MG/2 ML VIAL IV PUSH SCH ×3 (05:04→21:53)
[2017-06-24] MEDS: METOPROLOL TARTRATE 5 MG/5 ML VIAL IV PUSH SCH (05:04)
[2017-06-24] MEDS: MUPIROCIN 2% OINT 22 GM TUBE TOPICAL SCH ×3 (05:05→21:53)
[2017-06-24 05:26] LABS: AUTOMATED NEUTROPHIL # 9.2 TH/MM3 (1.8-7.7); BASOPHIL % 0.4 % (0.0-2.0); EOSINOPHIL # 0.1 TH/MM3 (0-0.4); EOSINOPHIL % 0.9 % (0.0-4.0); HEMATOCRIT 27.7 % (35.0-46.0); LYMPH % 14.3 % (9.0-44.0); MEAN CELL VOLUME 88.3 FL (80.0-100.0); MEAN CORPUSCULAR HEMOGLOBIN 28.8 PG (27.0-34.0); MEAN CORPUSCULAR HGB CONC 32.7 % (32.0-36.0); MONO % 17.7 % (0.0-8.0); NEUT % 66.7 % (16.0-70.0); PLATELET COUNT 273 TH/MM3 (150-450); RED BLOOD COUNT 3.14 MIL/MM3 (4.00-5.30); RED CELL DISTRIBUTION WIDTH 15.1 % (11.6-17.2); WHITE BLOOD COUNT 13.7 TH/MM3 (4.0-11.0)
[2017-06-24 05:28] LABS: HEMO FLAGS AUTO DIFF
[2017-06-24 05:33] LABS: INTERNATIONAL NORMALIZED RATIO 1.1 RATIO; PROTHROMBIN TIME - PATIENT 12.6 SEC (9.8-11.6)
[2017-06-24 05:52] LABS: ANION GAP 8 MEQ/L (5-15); AST (GOT) 26 U/L (15-37); BICARBONATE 29.3 MEQ/L (21.0-32.0); BLOOD UREA NITROGEN 14 MG/DL (7-18); CHLORIDE 95 MEQ/L (98-107); GLOMERULAR FILTRATION RATE 124 ML/MIN (>89); MAGNESIUM 2.1 MG/DL (1.5-2.5); POTASSIUM 4.1 MEQ/L (3.5-5.1); SODIUM (NA) 132 MEQ/L (136-145)
[2017-06-24 05:54] LABS: ALT (GPT) 17 U/L (10-53)
[2017-06-24 05:56] LABS: ALKALINE PHOSPHATASE 124 U/L (45-117); TOTAL BILIRUBIN ADULT 1.1 MG/DL (0.2-1.0)
[2017-06-24 07:21] LABS: BANDS 17 % (0-6); EOSINOPHILS 3 % (0-4); MYELOCYTES 1 % (0-0); NEUTROPHIL # MANUAL DIFF 11.6 TH/MM3 (1.8-7.7); PLATELET ESTIMATE SMEAR NORMAL (NORMAL); PLATELET MORPHOLOGY NORMAL (NORMAL); POLYS (SEG NEUTROPHILS) 67 % (16-70); SCAN/DIFF FINAL DIFF MANUAL; WBC DIFF SAMPLE 100
--- NOTE | 2017-06-24 07:47 | PD.ONC.PN ---
Subjective Subjective Remarks Patient seen and examined, vital signs, labs, medications, microbiology reviewed. Subjectively; she reports significant drainage from her PEG tube, the drainage is malodorous. She also continues to have pain at the site of PEG tube insertion. It appears the feeding tube became included an have to be flushed, it is now draining better and this is helped her abdominal pain as well. Overall the patient feels stable, she feels the drainage from the PEG tube insertion site has decreased and she was initiated on intravenous cefepime. She continues to have sustained sinus tachycardia. Objective Data Date Time Temp Pulse Resp B/P (MAP) Pulse Ox O2 Delivery O2 Flow Rate FiO2 06/24/17 07:19 139 06/24/17 05:45 16 06/24/17 04:00 98.5 137 20 153/84 (107) 92 06/24/17 00:12 120 06/24/17 00:00 98.7 136 20 154/89 (110) 93 06/23/17 21:50 97 06/23/17 20:04 138 06/23/17 20:00 98.4 137 22 131/69 (89) 94 06/23/17 17:27 98.4 132 20 128/80 (96) 98 06/23/17 13:10 97.8 118 18 140/80 (100) 97 06/23/17 08:00 98.5 127 18 152/93 (112) 96 06/24/17 06/24/17 06/24/17 07:00 15:00 23:00 Intake Total 240 ml 2581 ml Output Total 300 ml 925 ml Balance -60 ml 1656 ml Result Diagram: 06/24/17 0505 06/24/17 0505 Laboratory Results Laboratory Tests Test 06/24/17 05:05 White Blood Count 13.7 TH/MM3 Red Blood Count 3.14 MIL/MM3 Hemoglobin 9.0 GM/DL Hematocrit 27.7 % Mean Corpuscular Volume 88.3 FL Mean Corpuscular Hemoglobin 28.8 PG Mean Corpuscular Hemoglobin Concent 32.7 % Red Cell Distribution Width 15.1 % Platelet Count 273 TH/MM3 Mean Platelet Volume 7.5 FL Neutrophils (%) (Auto) 66.7 % Lymphocytes (%) (Auto) 14.3 % Monocytes (%) (Auto) 17.7 % Eosinophils (%) (Auto) 0.9 % Basophils (%) (Auto) 0.4 % Neutrophils # (Auto) 9.2 TH/MM3 Lymphocytes # (Auto) 2.0 TH/MM3 Monocytes # (Auto) 2.4 TH/MM3 Eosinophils # (Auto) 0.1 TH/MM3 Basophils # (Auto) 0.0 TH/MM3 CBC Comment AUTO DIFF Differential Total Cells Counted 100 Neutrophils % (Manual) 67 % Band Neutrophils % 17 % Lymphocytes % 7 % Monocytes % 5 % Eosinophils % 3 % Neutrophils # (Manual) 11.6 TH/MM3 Myelocytes 1 % Differential Comment FINAL DIFF MANUAL Platelet Estimate NORMAL Platelet Morphology Comment NORMAL Prothrombin Time 12.6 SEC Prothromb Time International Ratio 1.1 RATIO Blood Urea Nitrogen 14 MG/DL Creatinine 0.52 MG/DL Random Glucose 116 MG/DL Total Protein 6.4 GM/DL Albumin 2.0 GM/DL Calcium Level 8.1 MG/DL Phosphorus Level 3.2 MG/DL Magnesium Level 2.1 MG/DL Alkaline Phosphatase 124 U/L Aspartate Amino Transf (AST/SGOT) 26 U/L Alanine Aminotransferase (ALT/SGPT) 17 U/L Total Bilirubin 1.1 MG/DL Sodium Level 132 MEQ/L Potassium Level 4.1 MEQ/L Chloride Level 95 MEQ/L Carbon Dioxide Level 29.3 MEQ/L Anion Gap 8 MEQ/L Estimat Glomerular Filtration Rate 124 ML/MIN Triglycerides Level 82 MG/DL Culture Results Microbiology Date/Time Source Procedure Growth Status 06/23/17 08:20 Wound Abdomen Gram Stain Pending Received 06/23/17 08:20 Wound Abdomen Wound Culture Pending Received Administered Medications Medications (Trade) Dose Ordered Sig/Nelda Route PRN Reason Start Time Stop Time Status Last Admin Dose Admin Sodium Chloride (NS Flush) 2 ml UNSCH PRN IV FLUSH FLUSH AFTER USING IV ACCESS 05/31/17 16:00 06/15/17 03:23 Sodium Chloride (NS Flush) 2 ml BID IV FLUSH 05/31/17 21:00 06/23/17 21:43 Aspirin (Ecotrin Ec) 81 mg HS PO 05/31/17 21:00 06/23/17 20:24 Miscellaneous (Pill Splitter) 1 ea UNSCH PRN OTHER SEE LABEL COMMENTS 05/31/17 21:00 06/12/17 09:05 Ondansetron HCl (Zofran Inj) 4 mg Q4H PRN IV PUSH NAUSEA 06/07/17 21:00 06/23/17 11:48 Pantoprazole Sodium (Protonix Inj) 40 mg Q12H IV PUSH 06/08/17 21:00 06/23/17 20:25 Fat Emulsion Intravenous 250 ml @ 10 mls/hr Q24H IV-CENTRAL 06/10/17 20:00 06/23/17 20:26 Phenol (Chloraseptic [place]) 2 spray Q2H PRN OROPHARYNG throat pain 06/11/17 12:00 06/12/17 02:47 Sodium Chloride (NS Flush) See Protocol DAILY IV FLUSH 06/12/17 09:00 06/23/17 09:08 Heparin Sodium (Porcine) (Heparin Central Flush) See Protocol DAILY IV FLUSH 06/12/17 09:00 06/23/17 09:08 Heparin Sodium (Porcine) (Heparin Central Flush) See Protocol UNSCH PRN IV FLUSH SEE PROTOCOL TABLE 06/11/17 12:30 06/23/17 06:32 Sodium Chloride (NS Flush) UNSCH PRN IV FLUSH SEE PROTOCOL TABLE 06/11/17 12:30 06/23/17 06:31 Metoclopramide HCl (Reglan Inj) 5 mg Q8HR IV PUSH 06/13/17 14:00 06/24/17 05:04 Enoxaparin Sodium (Lovenox Inj) 40 mg Q24H SQ 06/13/17 08:15 Future hold 06/23/17 09:11 Lorazepam (Ativan Inj) 0.5 mg Q6H PRN IV PUSH nausea/anxiety 06/13/17 14:45 06/17/17 16:34 Insulin Detemir (Levemir Inj) 30 units Q12HR SQ 06/18/17 09:00 06/23/17 21:43 Insulin Aspart (NovoLOG SUPPLEMENTAL SCALE) 1 ACHS SLIDING SCALE SQ 06/18/17 08:00 06/23/17 18:30 Hydromorphone HCl (Dilaudid Pf Inj) 1 mg Q2H PRN IV PUSH pain 3-10 06/19/17 09:00 06/24/17 05:04 Fentanyl (Duragesic 50 Mcg Patch.72 Hr) 1 patch Q3D T-DERMAL 06/22/17 09:00 06/22/17 09:55 Sodium Chloride 11 meq/Sodium Acetate 59 meq/ Potassium Chloride 120 meq/ Sodium Phosphate 40 meq/Magnesium Chloride 10 meq/ Calcium Chloride 9 meq/ Multivitamins 10 ml/Folic Acid 1 mg/Amino Acids/ Dextrose 2,124.1437 ml @ 75 mls/hr Q24H IV-CENTRAL 06/19/17 20:00 06/23/17 20:26 Miscellaneous Information 1 Q3D T-DERMAL 06/22/17 09:00 06/22/17 09:00 Metoprolol Tartrate (Lopressor Inj) 5 mg Q4H IV PUSH 06/20/17 12:00 06/24/17 05:04 Docusate Sodium (Colace) 100 mg BID PO 06/21/17 21:00 06/23/17 20:24 Furosemide (Lasix Inj) 20 mg BID@09,18 IV PUSH 06/22/17 09:00 06/23/17 17:21 Cefepime HCl 2000 mg/Sodium Chloride 100 ml @ 200 mls/hr Q12H IV 06/23/17 10:00 06/23/17 20:27 Mupirocin (Bactroban 2% Oint) 1 applic Q8HR TOPICAL 06/23/17 09:00 06/24/17 05:05 Objective Remarks Ms. Vicente is a middle-aged female. She is sitting up in bed. she appears to be Uncomfortable, she is arousable and alert. NG tube has been removed from the left nostril. HEENT: Head atraumatic, normocephalic, conjunctivae are mildly pale, sclerae are anicteric, EOMI, PERRLA, oral exam no pharyngeal erythema. NECK: No palpable cervical or supraclavicular lymphadenopathy. RESPIRATORY: Decreased bibasilar breath sounds. Good air movement over the upper and middle lung zones. No wheezing or rhonchi. CARDIOVASCULAR: tachycardia, regular, S1-S2. No obvious murmurs, rubs or gallops. Heart rate sustained in the 120-130 bpm range. ABDOMEN: Distended abdomen, firm, tender to mild palpation, no obvious organ enlargement noted. Drainage noted at the site of gastrostomy tube insertion, erythema of the skin surrounding the gastrostomy tube insertion. LOWER EXTREMITIES: Bilateral pretibial edema, no calf tenderness. MUSCULOSKELETAL: Good muscle mass, tone and strength. INFRASTRUCTURE TECH: No focal sensory motor deficits. Assessment/Plan Assessment Ms. Vicente is a 52-year-old female with a 2.5 month history of progressive epigastric pain, nausea, vomiting and abdominal distension. She was noted on imaging studies on 06/10/2017 to have omental thickening and ascites. Omental biopsy revealed findings highly concerning for a high-grade adenocarcinoma with signet cell features. An EGD ensued and the EGD revealed an antral mass involving the gastric wall associated with ulceration and thickening. 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 Her major complaints are that of abdominal distension, pain and nausea. Plan 1. 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 Bowel obstruction or partial at the level of the antrum due to the primary tumor and small bowel obstruction due to peritoneal carcinomatosis. PEG tube to intermittent wall suction for gastric decompression. Treated with palliative systemic therapy with FOLFOX to help debulk her tumor to relieve some of her gastric symptoms of obstruction; cycle 1 day 1 was 2016, infusion completed on 06/14/2017. Awaiting HER-2/cristina staining results. 2. Sinus tachycardia: Cardiology following. On Lopressor Q4H IV. 3. Pain management: on Fentanyl 50mcg TD q 72 hours. Receives Dilaudid IV for breakthrough. 4. Nutrition: remains on TPN as she is only able to take in small amounts of clear liquid diet. 5. Infection at site of PEG tube insertion: Cultures are pending, she has been empirically initiated on cefepime for Pseudomonas coverage given the odor associated with the discharge which suggested Pseudomonas infection. Disposition: It appears unlikely that she will be cleared for discharge over the next 48 hours. I therefore would recommend delivery of second dose of systemic chemotherapy consisting of FOLFOX starting 06/26/2017. Plan discussed with the hospitalist and the patient. Memo Davis MD Jun 24, 2017 07:47
--- NOTE | 2017-06-24 07:56 | HHI.PR ---
Subjective Remarks less drainage from the peg site Objective Vitals heart reg. tachy lung diminished bases abd peg. white discharge around the tube..less today ext no pitting picc Vital Signs Date Time Temp Pulse Resp B/P (MAP) Pulse Ox O2 Delivery O2 Flow Rate FiO2 06/24/17 07:19 139 06/24/17 05:45 16 06/24/17 04:00 98.5 137 20 153/84 (107) 92 06/24/17 00:12 120 06/24/17 00:00 98.7 136 20 154/89 (110) 93 06/23/17 21:50 97 06/23/17 20:04 138 06/23/17 20:00 98.4 137 22 131/69 (89) 94 06/23/17 17:27 98.4 132 20 128/80 (96) 98 06/23/17 13:10 97.8 118 18 140/80 (100) 97 06/23/17 08:00 98.5 127 18 152/93 (112) 96 06/24/17 06/24/17 06/25/17 15:00 23:00 07:00 Intake Total 2581 ml Output Total 925 ml Balance 1656 ml IV Total 100 ml TPN/PPN 2350 ml Lipid 131 ml Drainage Total 925 ml Result Diagram: 06/24/17 0505 06/24/17 0505 Imaging Last Impressions Abdomen Biopsy CT 06/04/17 0000 Signed Impressions: Service Date/Time: Sunday, June 04, 2017 14:57 - CONCLUSION: Uncomplicated CT guided biopsy of the omentum. Chilango Shaw MD Liver Ultrasound 06/02/17 0000 Signed Impressions: Service Date/Time: Friday, June 02, 2017 23:21 - CONCLUSION: 1. Cirrhosis 2. Possible mass right lobe of the liver. MRI is recommended for further evaluation if clinically indicated. 3. Moderate ascites Mert Paige MD Chest X-Ray 05/31/17 1557 Signed Impressions: Service Date/Time: Wednesday, May 31, 2017 16:05 - CONCLUSION: No acute disease. Ivan Lowe MD Abdomen/Pelvis CT 05/31/17 1403 Signed Impressions: Service Date/Time: Wednesday, May 31, 2017 14:41 - CONCLUSION: Ascites appears complex new from 03/23/17. Other than liver disease I don't see an etiology for such. If paracentesis is contemplated fluid should be sent for cytology. Tom Kellogg MD FACRADDENDU: The above was reviewed. Of note, the patient is a stable 2 cm lesion in the medial aspect of the right hepatic lobe which shows rim enhancement, most characteristic of a benign hemangioma. Re\re aerating the above, there is stranding in the omentum which appears to be isolated. There is no associated anasarca or fluid in the mesenteric leaves. This appears to be a process isolated to the omentum itself. Although there are no discrete soft tissue lesions, findings could represent an interstitial or lymphatic type neoplastic process. Omental biopsy could be considered for further characterization. Jonathan Adame MD Cyst Biopsy Asp-Paracentesis US 05/31/17 0000 Signed Impressions: Service Date/Time: Wednesday, May 31, 2017 16:43 - CONCLUSION: Uncomplicated ultrasound guided paracentesis. Minimal fluid aspirated. 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 - Pt presented to the ED with complaints of worsening abdominal pain and distension. She states that she has been having issues with abd pain for the last 2 months. For the last 2 weeks she has been having increased generalized abd pain and distension which has been significantly worse over the last 2 days. - CT Abd/pelvis revealed ascites appears complex and new from 03/23/17. - She was previously seen in the ED on 03/[address] abd/pelvis at that time noted an 18mm lesion in the right lobe of the liver, with features favoring hemangioma. She was sent for followup as an outpt with GI. She had an MRI Abdomen W/O Contrast (05/13/17) with benign hemangioma in the caudate lobe of the liver corresponding to the lesion identified on CT otherwise normal examination. - Outpt workup with GI in April 2017 revealed positive ASMA, positive RACHELE, and RODRIGUEZ FibroSURE with fibrosis score of 0.04 (No fibrosis), Steatosis score of 0.78/S3 (marked or severe steatosis). Viral Hepatitis was negative. IgG subclasses were WNL, LKM Ab negative, AMA negative, Iron studies WNL, Ferritin 160 (slightly elevated), Ceruloplasmin WNL. Labs on 05/12/17 with AST 54, ALT 81, AlkPhos 92, Tbili 0.8 , DBili 0.2. autoimmune hepatitis was questioned. - Pt had diagnostic paracentesis on 05/31 with removal of 15cc of fluid - Cell count for the fluid noted WBC count 1657 - Fluid culture with no growth - cytology --> atypical epithelioid cells suspicious for malignancy - Repeat paracentesis 06/04/17 - 3,600ml of ascites removed - Ascitic Cell count: WBC 494, RBC 6525 - Fluid culture shows ngtd - cytology -->suspicious for malignant cells - Pt underwent Omental Biopsy (06/04/17) --> path suspicious for signet cell adenoca - EGD 06/11 --> antral ulcerated mass with near obstruction of outlet. 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 - Heme-Onc, Dr. Davis, is following. - She was started on palliative systemic therapy with FOLFOX to help debulk her tumor to relieve some of her gastric symptoms of obstruction - She received cycle 1 day 1 was 06/12/2017. - NGT placed for decompression for malignant bowel obstruction - General Surgery was consulted but its felt that currently the pt will not benefit from J tube and she will be unable to undergo enteral nutrition. - PICC line placed 06/11 and pt is on TPN - Pt developed sinus tachycardia with rates into the 140's, possibly secondary to physiological response related to her malignant/obstructive process and stopping her chronic bb. She was on Cardizem gtt with supplemental Lopressor IV. The Cardizem gtt has been stopped. unable to control with po lopressor. probably not absorbing ....cont iv lopressor - IR placed PEG tube on 06/16. removed ngt on 06/17 - PEG to gravity. - titrating up basal insulin and then add to tpn once controlled. -cont iv lasix and monitor bmp - DVT prophylaxis with Lovenox -PT consultation. -Pt pain level improved. cont fentanyl. she will wean off dilaudid. she is agreeable to snf...I think we will make an effort to get her to a snf after her next chemotherapy. We will need tpn and peg management at the snf. We will make another effort to get her off the iv lopressor but this is obviously a barrier. she is dnr. - On 06/23 we noticed her peg site looked infected...gs/cx pending. cefepime and topical bactroban started. -Discussed with Dr Davis today....we will make an effort to transition her to snf after the next chemo...will ask CM to identify a SNF that will manage g tube to liws and tpn. (2) Sinus tachycardia ICD Codes: R00.0 - Tachycardia, unspecified Status: Acute Plan: - physiologic d/t pain and disease process - Pt only able to receive IV medication, see above - comgmt with Cardiology - increased IV lopressor to 5mg q4h (3) Abdominal pain ICD Codes: R10.9 - Unspecified abdominal pain Status: Acute Plan: - See above. (4) Ascites ICD Codes: R18.8 - Other ascites Status: Acute Plan: - See above (5) Hypertension ICD Codes: I10 - Essential (primary) hypertension Status: Chronic Plan: - See above (6) Hyperlipidemia ICD Codes: E78.5 - Hyperlipidemia, unspecified Status: Chronic Plan: - Statin was held as an outpt (7) CAD (coronary artery disease) ICD Codes: I25.10 - Atherosclerotic heart disease of [place] coronary artery without angina pectoris Status: Chronic Plan: - Pt with hx of CAD and NSTEMI in 2010 s/p stent in the RCA (8) Tobacco abuse ICD Codes: Z72.0 - Tobacco use Status: Chronic Problem Qualifiers (1) Abdominal pain: Qualified Codes: R10.84 - Generalized abdominal pain (2) Ascites: Qualified Codes: R18.8 - Other ascites Zach Briceno MD Jun 24, 2017 07:56
[2017-06-24] MEDS ORDERED: METOPROLOL TARTRATE 50 MG TAB PO SCH (08:00)
[2017-06-24] MEDS: ENOXAPARIN SODIUM 40 MG/0.4 ML SYRINGE SQ SCH (08:01)
[2017-06-24] MEDS: PANTOPRAZOLE SODIUM 40 MG VIAL IV PUSH SCH ×2 (08:02→20:01)
[2017-06-24] MEDS: DOCUSATE SODIUM 100 MG CAP PO SCH ×2 (08:02→20:00)
[2017-06-24] MEDS: INSULIN DETEMIR 100 UNITS/ML VIAL SQ SCH ×2 (08:03→21:52)
[2017-06-24] MEDS: FUROSEMIDE 20 MG/2 ML VIAL IV PUSH SCH ×2 (08:03→17:42)
[2017-06-24] MEDS: SODIUM CHLORIDE 0.9% FLUSH 10 ML FLUSH IV FLUSH SCH ×3 (08:04→20:06)
[2017-06-24] MEDS: INSULIN ASPART SUPPLEMENTAL SCALE SQ SCH ×4 (08:23→21:52)
[2017-06-24] MEDS: CEFEPIME INJ 2,000 MG in SODIUM CHLORIDE 0.9% INJ 100 ML IV SCH ×2 (11:12→22:14)
[2017-06-24] MEDS: METOPROLOL TARTRATE 50 MG TAB PEG SCH ×2 (11:12→17:41)
[2017-06-24] MEDS: LORazepam 2 MG/ML VIAL IV PUSH PRN (16:31)
[2017-06-24] MEDS: ONDANSETRON HCL 4 MG/2 ML VIAL IV PUSH PRN (20:01)
[2017-06-24] MEDS: ASPIRIN EC 81 MG TABEC PO SCH (20:06)
[2017-06-24] MEDS: SODIUM ACETATE IV-CENTRAL SCH ×9 (21:52)
[2017-06-24] MEDS: SODIUM CHLORIDE IV-CENTRAL SCH ×9 (21:52)
[2017-06-24] MEDS: FAT EMULSION 20% INJ 250 ML (@10 mls/hr) IV-CENTRAL SCH (21:52)
[2017-06-24] MEDS: [UNRECOGNIZED DRUG - OTHER] IV-CENTRAL SCH ×9 (21:52)
[2017-06-25] VITALS (9 sets, daily range): BP systolic 116–144; BP diastolic 69–79; PULSE 114–129; RESP 14–20; TEMP 98–98.7; O2SAT 93–95
[2017-06-25] MEDS: METOPROLOL TARTRATE 50 MG TAB PEG SCH ×5 (00:08→23:40)
[2017-06-25] MEDS: ONDANSETRON HCL 4 MG/2 ML VIAL IV PUSH PRN (00:09)
[2017-06-25] MEDS: HYDROmorphone HCL PF 1 MG/ML VIAL IV PUSH PRN ×10 (00:12→23:39)
[2017-06-25] MEDS: METOCLOPRAMIDE HCL 10 MG/2 ML VIAL IV PUSH SCH ×3 (05:06→20:24)
[2017-06-25] MEDS: MUPIROCIN 2% OINT 22 GM TUBE TOPICAL SCH ×3 (05:21→23:40)
[2017-06-25] MEDS: INSULIN ASPART SUPPLEMENTAL SCALE SQ SCH ×4 (08:00→22:28)
--- NOTE | 2017-06-25 08:27 | HHI.PR ---
Subjective Remarks bowels moved x 3 yesterday. Objective Vitals nad heart reg lung diminished bases abd peg. skin mild erythema. minimal drainage at this point. firm abdomen ext no pitting picc. Vital Signs Date Time Temp Pulse Resp B/P (MAP) Pulse Ox O2 Delivery O2 Flow Rate FiO2 06/25/17 08:22 98.0 129 14 116/69 (85) 06/25/17 05:00 98.6 114 14 128/74 (92) 93 06/25/17 00:15 98.3 118 16 126/69 (88) 93 06/24/17 21:00 120 06/24/17 20:00 98.5 121 16 121/76 (91) 96 06/24/17 19:06 20 06/24/17 17:27 99 21 06/24/17 16:00 98.4 78 20 120/64 (82) 100 06/24/17 15:00 116 06/24/17 12:00 99.2 116 20 135/78 (97) 100 06/24/17 10:45 95 21 Result Diagram: 06/24/17 0505 06/24/17 0505 Imaging Last Impressions Abdomen Biopsy CT 06/04/17 0000 Signed Impressions: Service Date/Time: Sunday, June 04, 2017 14:57 - CONCLUSION: Uncomplicated CT guided biopsy of the omentum. Chilango Shaw MD Liver Ultrasound 06/02/17 0000 Signed Impressions: Service Date/Time: Friday, June 02, 2017 23:21 - CONCLUSION: 1. Cirrhosis 2. Possible mass right lobe of the liver. MRI is recommended for further evaluation if clinically indicated. 3. Moderate ascites Mert Paige MD Chest X-Ray 05/31/17 1557 Signed Impressions: Service Date/Time: Wednesday, May 31, 2017 16:05 - CONCLUSION: No acute disease. Ivan Lowe MD Abdomen/Pelvis CT 05/31/17 1403 Signed Impressions: Service Date/Time: Wednesday, May 31, 2017 14:41 - CONCLUSION: Ascites appears complex new from 03/23/17. Other than liver disease I don't see an etiology for such. If paracentesis is contemplated fluid should be sent for cytology. Tom Kellogg MD FACRADDENDUM: The above was reviewed. Of note, the patient is a stable 2 cm lesion in the medial aspect of the right hepatic lobe which shows rim enhancement, most characteristic of a benign hemangioma. Re\re aerating the above, there is stranding in the omentum which appears to be isolated. There is no associated anasarca or fluid in the mesenteric leaves. This appears to be a process isolated to the omentum itself. Although there are no discrete soft tissue lesions, findings could represent an interstitial or lymphatic type neoplastic process. Omental biopsy could be considered for further characterization. Jonathan Adame MD Cyst Biopsy Asp-Paracentesis US 05/31/17 0000 Signed Impressions: Service Date/Time: Wednesday, May 31, 2017 16:43 - CONCLUSION: Uncomplicated ultrasound guided paracentesis. Minimal fluid aspirated. 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 - Pt presented to the ED with complaints of worsening abdominal pain and distension. She states that she has been having issues with abd pain for the last 2 months. For the last 2 weeks she has been having increased generalized abd pain and distension which has been significantly worse over the last 2 days. - CT Abd/pelvis revealed ascites appears complex and new from 03/23/17. - She was previously seen in the ED on 03/[address] abd/pelvis at that time noted an 18mm lesion in the right lobe of the liver, with features favoring hemangioma. She was sent for followup as an outpt with GI. She had an MRI Abdomen W/O Contrast (05/13/17) with benign hemangioma in the caudate lobe of the liver corresponding to the lesion identified on CT otherwise normal examination. - Outpt workup with GI in April 2017 revealed positive ASMA, positive RACHELE, and RODRIGUEZ FibroSURE with fibrosis score of 0.04 (No fibrosis), Steatosis score of 0.78/S3 (marked or severe steatosis). Viral Hepatitis was negative. IgG subclasses were WNL, LKM Ab negative, AMA negative, Iron studies WNL, Ferritin 160 (slightly elevated), Ceruloplasmin WNL. Labs on 05/12/17 with AST 54, ALT 81, AlkPhos 92, Tbili 0.8 , DBili 0.2. autoimmune hepatitis was questioned. - Pt had diagnostic paracentesis on 05/31 with removal of 15cc of fluid - Cell count for the fluid noted WBC count 1657 - Fluid culture with no growth - cytology --> atypical epithelioid cells suspicious for malignancy - Repeat paracentesis 06/04/17 - 3,600ml of ascites removed - Ascitic Cell count: WBC 494, RBC 6525 - Fluid culture shows ngtd - cytology -->suspicious for malignant cells - Pt underwent Omental Biopsy (06/04/17) --> path suspicious for signet cell adenoca - EGD 06/11 --> antral ulcerated mass with near obstruction of outlet. 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 - Heme-Onc, Dr. Davis, is following. - She was started on palliative systemic therapy with FOLFOX to help debulk her tumor to relieve some of her gastric symptoms of obstruction - She received cycle 1 day 1 was 06/12/2017. - NGT placed for decompression for malignant bowel obstruction - General Surgery was consulted but its felt that currently the pt will not benefit from J tube and she will be unable to undergo enteral nutrition. - PICC line placed 06/11 and pt is on TPN - Pt developed sinus tachycardia with rates into the 140's, possibly secondary to physiological response related to her malignant/obstructive process and stopping her chronic bb. - IR placed PEG tube on 06/16. removed ngt on 06/17 - PEG to gravity. - titrating up basal insulin and then add to tpn once controlled. bg currently controlled -cont iv lasix and monitor bmp - DVT prophylaxis with Lovenox -PT consultation. daily ambulation -Pt pain level improved. cont fentanyl. she will wean off dilaudid. she is agreeable to rehab..I think we will make an effort to get her to a rehab after her next chemotherapy this weekend. We will need tpn and peg management at the snf. We are making another effort to convert iv lopressor back to po/peg but this is obviously a barrier. she is dnr. - On 06/23 we noticed her peg site looked infected...gs/cx pending.. cefepime and topical bactroban started. -Discussed with Dr Davis ....we will make an effort to transition her to rehab after the next chemo...CM working on facility. [facility] is consulted. (2) Sinus tachycardia ICD Codes: R00.0 - Tachycardia, unspecified Status: Acute Plan: - physiologic d/t pain and disease process - Pt only able to receive IV medication, see above - comgmt with Cardiology - increased IV lopressor to 5mg q4h (3) Abdominal pain ICD Codes: R10.9 - Unspecified abdominal pain Status: Acute Plan: - See above. (4) Ascites ICD Codes: R18.8 - Other ascites Status: Acute Plan: - See above (5) Hypertension ICD Codes: I10 - Essential (primary) hypertension Status: Chronic Plan: - See above (6) Hyperlipidemia ICD Codes: E78.5 - Hyperlipidemia, unspecified Status: Chronic Plan: - Statin was held as an outpt (7) CAD (coronary artery disease) ICD Codes: I25.10 - Atherosclerotic heart disease of [place] coronary artery without angina pectoris Status: Chronic Plan: - Pt with hx of CAD and NSTEMI in 2010 s/p stent in the RCA (8) Tobacco abuse ICD Codes: Z72.0 - Tobacco use Status: Chronic Problem Qualifiers (1) Abdominal pain: Qualified Codes: R10.84 - Generalized abdominal pain (2) Ascites: Qualified Codes: R18.8 - Other ascites Zach Briceno MD Jun 25, 2017 08:27
[2017-06-25] MEDS: INSULIN DETEMIR 100 UNITS/ML VIAL SQ SCH ×2 (08:29→22:28)
[2017-06-25] MEDS: FUROSEMIDE 20 MG/2 ML VIAL IV PUSH SCH ×2 (08:30→17:29)
[2017-06-25] MEDS: fentaNYL 50 MCG/HR PATCH T-DERMAL SCH (08:31)
[2017-06-25] MEDS: PANTOPRAZOLE SODIUM 40 MG VIAL IV PUSH SCH ×2 (08:31→20:22)
[2017-06-25] MEDS: REMOVE OLD DURAGESIC (FENTANYL) PATCH T-DERMAL SCH (08:32)
[2017-06-25] MEDS: SODIUM CHLORIDE 0.9% FLUSH 10 ML FLUSH IV FLUSH SCH ×3 (08:33→20:21)
[2017-06-25] MEDS: ENOXAPARIN SODIUM 40 MG/0.4 ML SYRINGE SQ SCH (08:33)
[2017-06-25] MEDS: DOCUSATE SODIUM 100 MG CAP PO SCH ×2 (09:00→20:21)
[2017-06-25] MEDS: CEFEPIME INJ 2,000 MG in SODIUM CHLORIDE 0.9% INJ 100 ML IV SCH ×2 (10:01→23:39)
--- NOTE | 2017-06-25 16:43 | PD.ONC.PN ---
Subjective Subjective Remarks Ms. Vicente was seen at 7:20AM this morning, this note reflects that encounter. Subjectively, the pt reports feeling better today. She had 3 bowel movements yesterday these were semi formed. Her ABD pain is slightly improved at the site of the PEG insertion. Her sinus tachycardia continues to fluctuate. There were no acute events yesterday, she continues to require TPN. 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 Objective Data Date Time Temp Pulse Resp B/P (MAP) Pulse Ox O2 Delivery O2 Flow Rate FiO2 06/25/17 10:26 95 06/25/17 08:22 98.0 129 14 116/69 (85) 06/25/17 08:00 123 06/25/17 05:00 98.6 114 14 128/74 (92) 93 06/25/17 00:15 98.3 118 16 126/69 (88) 93 06/24/17 21:00 120 06/24/17 20:00 98.5 121 16 121/76 (91) 96 06/24/17 19:06 20 06/24/17 17:27 99 21 06/25/17 06/25/17 06/25/17 07:00 15:00 23:00 Intake Total 240 ml Output Total 1250 ml Balance -1010 ml Result Diagram: 06/24/17 0505 06/24/17 0505 Culture Results Microbiology Date/Time Source Procedure Growth Status 06/23/17 08:20 Wound Abdomen Gram Stain - Final Complete 06/23/17 08:20 Wound Culture - Final Anaerobic Gram Neg Yoel Complete Administered Medications Medications (Trade) Dose Ordered Sig/Nelda Route PRN Reason Start Time Stop Time Status Last Admin Dose Admin Sodium Chloride (NS Flush) 2 ml UNSCH PRN IV FLUSH FLUSH AFTER USING IV ACCESS 05/31/17 16:00 06/15/17 03:23 Sodium Chloride (NS Flush) 2 ml BID IV FLUSH 05/31/17 21:00 06/25/17 08:33 Aspirin (Ecotrin Ec) 81 mg HS PO 05/31/17 21:00 06/23/17 20:24 Miscellaneous (Pill Splitter) 1 ea UNSCH PRN OTHER SEE LABEL COMMENTS 05/31/17 21:00 06/12/17 09:05 Ondansetron HCl (Zofran Inj) 4 mg Q4H PRN IV PUSH NAUSEA 06/07/17 21:00 06/25/17 00:09 Pantoprazole Sodium (Protonix Inj) 40 mg Q12H IV PUSH 06/08/17 21:00 06/25/17 08:31 Fat Emulsion Intravenous 250 ml @ 10 mls/hr Q24H IV-CENTRAL 06/10/17 20:00 06/24/17 21:52 Phenol (Chloraseptic [place]) 2 spray Q2H PRN OROPHARYNG throat pain 06/11/17 12:00 06/12/17 02:47 Sodium Chloride (NS Flush) See Protocol DAILY IV FLUSH 06/12/17 09:00 06/25/17 08:34 Heparin Sodium (Porcine) (Heparin Central Flush) See Protocol DAILY IV FLUSH 06/12/17 09:00 06/25/17 08:30 Heparin Sodium (Porcine) (Heparin Central Flush) See Protocol UNSCH PRN IV FLUSH SEE PROTOCOL TABLE 06/11/17 12:30 06/23/17 06:32 Sodium Chloride (NS Flush) UNSCH PRN IV FLUSH SEE PROTOCOL TABLE 06/11/17 12:30 06/23/17 06:31 Metoclopramide HCl (Reglan Inj) 5 mg Q8HR IV PUSH 06/13/17 14:00 06/25/17 12:48 Enoxaparin Sodium (Lovenox Inj) 40 mg Q24H SQ 06/13/17 08:15 Future hold 06/25/17 08:33 Lorazepam (Ativan Inj) 0.5 mg Q6H PRN IV PUSH nausea/anxiety 06/13/17 14:45 06/24/17 16:31 Insulin Detemir (Levemir Inj) 30 units Q12HR SQ 06/18/17 09:00 06/25/17 08:29 Insulin Aspart (NovoLOG SUPPLEMENTAL SCALE) 1 ACHS SLIDING SCALE SQ 06/18/17 08:00 06/25/17 13:17 Hydromorphone HCl (Dilaudid Pf Inj) 1 mg Q2H PRN IV PUSH pain 3-10 06/19/17 09:00 06/25/17 15:46 Fentanyl (Duragesic 50 Mcg Patch.72 Hr) 1 patch Q3D T-DERMAL 06/22/17 09:00 06/25/17 08:31 Sodium Chloride 11 meq/Sodium Acetate 59 meq/ Potassium Chloride 120 meq/ Sodium Phosphate 40 meq/Magnesium Chloride 10 meq/ Calcium Chloride 9 meq/ Multivitamins 10 ml/Folic Acid 1 mg/Amino Acids/ Dextrose 2,124.1437 ml @ 75 mls/hr Q24H IV-CENTRAL 06/19/17 20:00 06/24/17 21:52 Miscellaneous Information 1 Q3D T-DERMAL 06/22/17 09:00 06/25/17 08:32 Docusate Sodium (Colace) 100 mg BID PO 06/21/17 21:00 06/23/17 20:24 Furosemide (Lasix Inj) 20 mg BID@09,18 IV PUSH 06/22/17 09:00 06/25/17 08:30 Cefepime HCl 2000 mg/Sodium Chloride 100 ml @ 200 mls/hr Q12H IV 06/23/17 10:00 06/25/17 10:01 Mupirocin (Bactroban 2% Oint) 1 applic Q8HR TOPICAL 06/23/17 09:00 06/25/17 13:03 Metoprolol Tartrate (Lopressor) 75 mg Q6HR PEG 06/24/17 12:00 06/25/17 13:19 Objective Remarks Ms. Vicente is a middle-aged female. She is sitting up in bed. she appears to be Uncomfortable, she is arousable and alert. NG tube has been removed from the left nostril. HEENT: Head atraumatic, normocephalic, conjunctivae are mildly pale, sclerae are anicteric, EOMI, PERRLA, oral exam no pharyngeal erythema. NECK: No palpable cervical or supraclavicular lymphadenopathy. RESPIRATORY: Decreased bibasilar breath sounds. Good air movement over the upper and middle lung zones. No wheezing or rhonchi. CARDIOVASCULAR: tachycardia, regular, S1-S2. No obvious murmurs, rubs or gallops. Heart rate sustained in the 120-130 bpm range. ABDOMEN: Distended abdomen, firm, tender to mild palpation, no obvious organ enlargement noted. Drainage noted at the site of gastrostomy tube insertion, erythema of the skin surrounding the gastrostomy tube insertion. LOWER EXTREMITIES: Bilateral pretibial edema, no calf tenderness. MUSCULOSKELETAL: Good muscle mass, tone and strength. SYSTEM ADMINISTRATION MANAGER: No focal sensory motor deficits. Assessment/Plan Assessment Ms. Vicente is a 52-year-old female with a 2.5 month history of progressive epigastric pain, nausea, vomiting and abdominal distension. She was noted on imaging studies on 06/10/2017 to have omental thickening and ascites. Omental biopsy revealed findings highly concerning for a high-grade adenocarcinoma with signet cell features. An EGD ensued and the EGD revealed an antral mass involving the gastric wall associated with ulceration and thickening. 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 Her major complaints are that of abdominal distension, pain and nausea. Plan 1. 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 Bowel obstruction or partial at the level of the antrum due to the primary tumor and small bowel obstruction due to peritoneal carcinomatosis. PEG tube to intermittent wall suction for gastric decompression. Treated with palliative systemic therapy with FOLFOX to help debulk her tumor to relieve some of her gastric symptoms of obstruction; cycle 1 day 1 was 2016, infusion completed on 06/14/2017. I will order cycle 2 FOLFOX to start on 06/26/2017. Awaiting HER-2/cristina staining results. 2. Sinus tachycardia: Cardiology following. On Lopressor Q4H IV. 3. Pain management: on Fentanyl 50mcg TD q 72 hours. Receives Dilaudid IV for breakthrough. 4. Nutrition: remains on TPN as she is only able to take in small amounts of clear liquid diet, it may be reasonable to try to clamp her PEG tube for longer periods of time and assess her gastric outlet obstruction. 5. Infection at site of PEG tube insertion: GNR on culture, she is on cefepime. Disposition: Plan to start Cycle 2 FOLFOX on 06/26/2017. I spoke to the Pathology lab and HER-2 staining was sent out on 06/21; results still pending. Memo Davis MD Jun 25, 2017 16:43
[2017-06-25] MEDS: ASPIRIN EC 81 MG TABEC PO SCH (20:22)
[2017-06-25] MEDS: SODIUM ACETATE IV-CENTRAL SCH ×9 (22:19)
[2017-06-25] MEDS: SODIUM CHLORIDE IV-CENTRAL SCH ×9 (22:19)
[2017-06-25] MEDS: FAT EMULSION 20% INJ 250 ML (@10 mls/hr) IV-CENTRAL SCH (22:19)
[2017-06-25] MEDS: [UNRECOGNIZED DRUG - OTHER] IV-CENTRAL SCH ×9 (22:19)
[2017-06-26] VITALS (7 sets, daily range): BP systolic 116–156; BP diastolic 75–88; PULSE 107–129; RESP 12–19; TEMP 98.4–99.3; O2SAT 91–96
[2017-06-26] MEDS: HYDROmorphone HCL PF 1 MG/ML VIAL IV PUSH PRN ×5 (02:09→15:32)
[2017-06-26] MEDS: ONDANSETRON HCL 4 MG/2 ML VIAL IV PUSH PRN (04:25)
[2017-06-26] MEDS: MUPIROCIN 2% OINT 22 GM TUBE TOPICAL SCH ×3 (05:58→21:20)
[2017-06-26] MEDS: METOCLOPRAMIDE HCL 10 MG/2 ML VIAL IV PUSH SCH ×3 (05:58→21:30)
[2017-06-26] MEDS: METOPROLOL TARTRATE 50 MG TAB PEG SCH ×3 (05:58→17:16)
[2017-06-26] MEDS: INSULIN ASPART SUPPLEMENTAL SCALE SQ SCH ×4 (08:00→21:43)
--- NOTE | 2017-06-26 08:26 | PD.ONC.PN ---
Subjective Subjective Remarks Afebrile Anxious about chemotherapy today Requesting to know what meds are available for her Has some pain around the PEG tube insertion site Wants to get bathed prior to starting chemotherapy Objective Data Date Time Temp Pulse Resp B/P (MAP) Pulse Ox O2 Delivery O2 Flow Rate FiO2 06/26/17 07:41 96 21 06/26/17 06:15 98.4 113 18 129/76 (93) 95 06/25/17 23:49 98.4 123 20 126/79 (95) 93 06/25/17 20:24 98.7 128 18 144/74 (97) 95 06/25/17 20:02 123 06/25/17 17:50 95 21 06/25/17 10:26 95 06/25/17 08:22 98.0 129 14 116/69 (85) Result Diagram: 06/24/17 0505 06/24/17 0505 Laboratory Results Laboratory Tests Test 06/26/17 06:00 Culture Results Microbiology Date/Time Source Procedure Growth Status 06/23/17 08:20 Wound Abdomen Gram Stain - Final Complete 06/23/17 08:20 Wound Culture - Final Anaerobic Gram Neg Yoel Complete Administered Medications Medications (Trade) Dose Ordered Sig/Nelda Route PRN Reason Start Time Stop Time Status Last Admin Dose Admin Sodium Chloride (NS Flush) 2 ml UNSCH PRN IV FLUSH FLUSH AFTER USING IV ACCESS 05/31/17 16:00 06/15/17 03:23 Sodium Chloride (NS Flush) 2 ml BID IV FLUSH 05/31/17 21:00 06/25/17 20:21 Aspirin (Ecotrin Ec) 81 mg HS PO 05/31/17 21:00 06/23/17 20:24 Miscellaneous (Pill Splitter) 1 ea UNSCH PRN OTHER SEE LABEL COMMENTS 05/31/17 21:00 06/12/17 09:05 Ondansetron HCl (Zofran Inj) 4 mg Q4H PRN IV PUSH NAUSEA 06/07/17 21:00 06/26/17 04:25 Pantoprazole Sodium (Protonix Inj) 40 mg Q12H IV PUSH 06/08/17 21:00 06/25/17 20:22 Fat Emulsion Intravenous 250 ml @ 10 mls/hr Q24H IV-CENTRAL 06/10/17 20:00 06/25/17 22:19 Phenol (Chloraseptic [place]) 2 spray Q2H PRN OROPHARYNG throat pain 06/11/17 12:00 06/12/17 02:47 Sodium Chloride (NS Flush) See Protocol DAILY IV FLUSH 06/12/17 09:00 06/25/17 08:34 Heparin Sodium (Porcine) (Heparin Central Flush) See Protocol DAILY IV FLUSH 06/12/17 09:00 06/25/17 08:30 Heparin Sodium (Porcine) (Heparin Central Flush) See Protocol UNSCH PRN IV FLUSH SEE PROTOCOL TABLE 06/11/17 12:30 06/23/17 06:32 Sodium Chloride (NS Flush) UNSCH PRN IV FLUSH SEE PROTOCOL TABLE 06/11/17 12:30 06/23/17 06:31 Metoclopramide HCl (Reglan Inj) 5 mg Q8HR IV PUSH 06/13/17 14:00 06/26/17 05:58 Enoxaparin Sodium (Lovenox Inj) 40 mg Q24H SQ 06/13/17 08:15 Future hold 06/25/17 08:33 Lorazepam (Ativan Inj) 0.5 mg Q6H PRN IV PUSH nausea/anxiety 06/13/17 14:45 06/24/17 16:31 Insulin Detemir (Levemir Inj) 30 units Q12HR SQ 06/18/17 09:00 06/25/17 22:28 Insulin Aspart (NovoLOG SUPPLEMENTAL SCALE) 1 ACHS SLIDING SCALE SQ 06/18/17 08:00 06/25/17 22:28 Hydromorphone HCl (Dilaudid Pf Inj) 1 mg Q2H PRN IV PUSH pain 3-10 06/19/17 09:00 06/26/17 04:14 Fentanyl (Duragesic 50 Mcg Patch.72 Hr) 1 patch Q3D T-DERMAL 06/22/17 09:00 06/25/17 08:31 Sodium Chloride 11 meq/Sodium Acetate 59 meq/ Potassium Chloride 120 meq/ Sodium Phosphate 40 meq/Magnesium Chloride 10 meq/ Calcium Chloride 9 meq/ Multivitamins 10 ml/Folic Acid 1 mg/Amino Acids/ Dextrose 2,124.1437 ml @ 75 mls/hr Q24H IV-CENTRAL 06/19/17 20:00 06/25/17 22:19 Miscellaneous Information 1 Q3D T-DERMAL 06/22/17 09:00 06/25/17 08:32 Docusate Sodium (Colace) 100 mg BID PO 06/21/17 21:00 06/23/17 20:24 Furosemide (Lasix Inj) 20 mg BID@09,18 IV PUSH 06/22/17 09:00 06/25/17 17:29 Cefepime HCl 2000 mg/Sodium Chloride 100 ml @ 200 mls/hr Q12H IV 06/23/17 10:00 06/25/17 23:39 Mupirocin (Bactroban 2% Oint) 1 applic Q8HR TOPICAL 06/23/17 09:00 06/25/17 23:40 Metoprolol Tartrate (Lopressor) 75 mg Q6HR PEG 06/24/17 12:00 06/26/17 05:58 Objective Remarks GENERAL: Chronically ill appearing anxious older female resting in bed SKIN: Warm and dry. HEAD: Normocephalic. EYES: No injection or drainage. NECK: Supple, trachea midline. CARDIOVASCULAR: +S1/S2. Tachycardia. RESPIRATORY: Clear anteriorly. Breathing unlabored at rest. GASTROINTESTINAL: Abdomen distended, firm. G tube to LUQ draining bile to suction canister EXTREMITIES: No cyanosis. MUSCULOSKELETAL: Generalized weakness NEUROLOGICAL: No obvious focal deficit. Awake, alert, and oriented x3. Assessment/Plan Assessment Ms. Vicente is a 52-year-old female with a 2.5 month history of progressive epigastric pain, nausea, vomiting and abdominal distension. She was noted on imaging studies on 06/10/2017 to have omental thickening and ascites. Omental biopsy revealed findings highly concerning for a high-grade adenocarcinoma with signet cell features. An EGD ensued and the EGD revealed an antral mass involving the gastric wall associated with ulceration and thickening. 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 Her major complaints are that of abdominal distension, pain and nausea. Plan 1. Cycle #2 of palliative intent FOLFOX to begin today. 2. Medications were reviewed with the patient. She has a fentanyl patch every 3 days with Dilaudid IV for breakthrough pain. 3. Continue clear liquid diet. Patient was instructed that she will be sensitive to very cold items over the next few days due to the chemotherapy. Recommend room temperature food items. 4. Monitor CBC, CMP Attending Statement The exam, history, and the medical decision-making described in the above note were completed with the assistance of the mid-level provider. I reviewed and agree with the findings presented. I attest that I had a [id number] encounter with the patient on the same day, and personally performed and documented my assessment and findings in the medical record. Still has upper abdominal pain. Anxious about the chemotherapy and possible paracentesis. Her questions answered. Discussed with her . Also discussed with . Proceed with FOLFOX chemothrapy today.. Monitor for toxicity. Titrate pain meds. Jami Vázquez Jun 26, 2017 08:26 Anthony Cohen MD Jun 26, 2017 15:05
[2017-06-26] MEDS: PANTOPRAZOLE SODIUM 40 MG VIAL IV PUSH SCH ×2 (08:49→21:30)
[2017-06-26] MEDS: FUROSEMIDE 20 MG/2 ML VIAL IV PUSH SCH ×2 (08:49→17:17)
[2017-06-26] MEDS: DOCUSATE SODIUM 100 MG CAP PO SCH ×2 (09:00→21:00)
--- NOTE | 2017-06-26 09:00 | HHI.PR ---
Subjective Remarks No new complaints. Pain is better controlled. Pt is in good spirits. Objective Vitals Vital Signs Date Time Temp Pulse Resp B/P (MAP) Pulse Ox O2 Delivery O2 Flow Rate FiO2 06/26/17 07:41 96 21 06/26/17 06:15 98.4 113 18 129/76 (93) 95 06/25/17 23:49 98.4 123 20 126/79 (95) 93 06/25/17 20:24 98.7 128 18 144/74 (97) 95 06/25/17 20:02 123 06/25/17 17:50 95 21 06/25/17 10:26 95 Result Diagram: 06/24/17 0505 06/24/17 0505 Imaging Last Impressions Gastrostomy Tube Placement 06/16/17 0000 Signed Impressions: Service Date/Time: Friday, June 16, 2017 15:58 - CONCLUSION: Uncomplicated gastrostomy tube placement as above. Carl Lamar Jr., MD Chest X-Ray 06/14/17 0000 Signed Impressions: Service Date/Time: Wednesday, June 14, 2017 17:04 - CONCLUSION: Stable chest x-ray with a small to moderate size left pleural effusion with associated volume loss and/or consolidation. Chilango Shaw MD Abdomen X-Ray 06/14/17 0000 Signed Impressions: Service Date/Time: Wednesday, June 14, 2017 13:22 - CONCLUSION: 1. Nasogastric tube distal tip in the gastric body. 2. Stable small to moderate size left pleural effusion. Chilango Shaw MD Abdomen Ultrasound 06/14/17 0000 Signed Impressions: Service Date/Time: Wednesday, June 14, 2017 09:29 - CONCLUSION: Small volume of free fluid is present within the abdomen or pelvis. Chilango Shaw MD Lower Extremity Ultrasound 06/12/17 0000 Signed Impressions: Service Date/Time: Monday, June 12, 2017 14:04 - CONCLUSION: Normal examination. Ron Kim MD Abdomen/Pelvis CT 06/09/17 0000 Signed Impressions: Service Date/Time: Friday, June 09, 2017 12:50 - CONCLUSION: 1. Diffuse abdominal ascites. With omental thickening. Ascites could either be from cirrhotic changes or peritoneal carcinomatosis. 2. No findings to indicate bowel obstruction. 3. Small bilateral effusions with dependent atelectasis. Xavier Kellogg MD Paracentesis 06/04/17 0000 Signed Impressions: Service Date/Time: Sunday, June 04, 2017 14:57 - CONCLUSION: Uncomplicated CT Guided paracentesis with removal of 3.6 L of fluid. Sample was saved and sent to the lab for evaluation. Chilango Shaw MD Abdomen Biopsy CT 06/04/17 0000 Signed Impressions: Service Date/Time: Sunday, June 04, 2017 14:57 - CONCLUSION: Uncomplicated CT guided biopsy of the omentum. Chilango Shaw MD Liver Ultrasound 06/02/17 0000 Signed Impressions: Service Date/Time: Friday, June 02, 2017 23:21 - CONCLUSION: 1. Cirrhosis 2. Possible mass right lobe of the liver. MRI is recommended for further evaluation if clinically indicated. 3. Moderate ascites Mert Paige MD Cyst Biopsy Asp-Paracentesis US 05/31/17 0000 Signed Impressions: Service Date/Time: Wednesday, May 31, 2017 16:43 - CONCLUSION: Uncomplicated ultrasound guided paracentesis. Minimal fluid aspirated. Jonathan Adame MD Objective Remarks GENERAL: This is a well-nourished, well-developed patient, in no apparent distress. CARDIOVASCULAR: Regular rate and rhythm without murmurs, gallops, or rubs. RESPIRATORY: Clear to auscultation. Breath sounds equal bilaterally. No wheezes , rales, or rhonchi. GASTROINTESTINAL: Abdomen soft, non-tender, nondistended. Normal active bowel sounds G/J tube noted. G-tube: MUSCULOSKELETAL: Extremities without clubbing, cyanosis, or edema. NEURO: Alert & Oriented x4 to person, place, time, situation. 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 - Pt presented to the ED with complaints of worsening abdominal pain and distension. She states that she has been having issues with abd pain for the last 2 months. For the last 2 weeks she has been having increased generalized abd pain and distension which has been significantly worse over the last 2 days. - CT Abd/pelvis revealed ascites appears complex and new from 03/23/17. - She was previously seen in the ED on 03/[address] abd/pelvis at that time noted an 18mm lesion in the right lobe of the liver, with features favoring hemangioma. She was sent for followup as an outpt with GI. She had an MRI Abdomen W/O Contrast (05/13/17) with benign hemangioma in the caudate lobe of the liver corresponding to the lesion identified on CT otherwise normal examination. - Outpt workup with GI in April 2017 revealed positive ASMA, positive RACHELE, and RODRIGUEZ FibroSURE with fibrosis score of 0.04 (No fibrosis), Steatosis score of 0.78/S3 (marked or severe steatosis). Viral Hepatitis was negative. IgG subclasses were WNL, LKM Ab negative, AMA negative, Iron studies WNL, Ferritin 160 (slightly elevated), Ceruloplasmin WNL. Labs on 05/12/17 with AST 54, ALT 81, AlkPhos 92, Tbili 0.8 , DBili 0.2. autoimmune hepatitis was questioned. - Pt had diagnostic paracentesis on 05/31 with removal of 15cc of fluid - Cell count for the fluid noted WBC count 1657 - Fluid culture with no growth - cytology --> atypical epithelioid cells suspicious for malignancy - Repeat paracentesis 06/04/17 - 3,600ml of ascites removed - Ascitic Cell count: WBC 494, RBC 6525 - Fluid culture shows ngtd - cytology -->suspicious for malignant cells - Pt underwent Omental Biopsy (06/04/17) --> path suspicious for signet cell adenoca - EGD 06/11 --> antral ulcerated mass with near obstruction of outlet. 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 - Heme-Onc, Dr. Davis, is following. - She was started on palliative systemic therapy with FOLFOX to help debulk her tumor to relieve some of her gastric symptoms of obstruction - She received cycle 1 day 1 was 06/12/2017. - NGT placed for decompression for malignant bowel obstruction - General Surgery was consulted but its felt that currently the pt will not benefit from J tube and she will be unable to undergo enteral nutrition. - PICC line placed 06/11 and pt is on TPN - Pt developed sinus tachycardia with rates into the 140's, possibly secondary to physiological response related to her malignant/obstructive process and stopping her chronic bb. - IR placed G tube on 06/16. removed ngt on 06/17 - G tube to gravity. - Pt NOT able to tolerate PO intake. - Pt is TPN dependent for nutritional support - Pt's blood sugar are now stable with NO basal insulin added to TPN; BID levemir; SSI - Pt's pain being addressed with Fentanyl transdermal 50mcg and prn IV dilaudid - Will increase Fentanyl to 75mcg - continue IV lasix - Daily PT - DNR - DVT prophylaxis with lovenox - Tenatively pt's is planned for transfer to [facility] following repeat Chemotherapy this weekend. - Pt will require continued mgmt of TPN and G-tube - 06/23, G-tube site appeared infected - Wound Culture (06/23) --> anaerobic gram negative rods, I discussed case with lab and requested further analysis with speciation and sensitivity, final ID will take an additional 48 hrs rom / - IV Cefepime and topical Bactroban. (2) Sinus tachycardia ICD Codes: R00.0 - Tachycardia, unspecified Status: Acute Plan: - physiologic d/t pain and disease process - Pt receiving PO lopressor 75mg q6h with G-tube suction held for 30min - observe (3) Abdominal pain ICD Codes: R10.9 - Unspecified abdominal pain Status: Acute Plan: - See above. (4) Ascites ICD Codes: R18.8 - Other ascites Status: Acute Plan: - See above (5) Hypertension ICD Codes: I10 - Essential (primary) hypertension Status: Chronic Plan: - See above (6) Hyperlipidemia ICD Codes: E78.5 - Hyperlipidemia, unspecified Status: Chronic Plan: - Statin was held as an outpt (7) CAD (coronary artery disease) ICD Codes: I25.10 - Atherosclerotic heart disease of crow coronary artery without angina pectoris Status: Chronic Plan: - Pt with hx of CAD and NSTEMI in 2010 s/p stent in the RCA (8) Tobacco abuse ICD Codes: Z72.0 - Tobacco use Status: Chronic Problem Qualifiers (1) Abdominal pain: Qualified Codes: R10.84 - Generalized abdominal pain (2) Ascites: Qualified Codes: R18.8 - Other ascites (3) Hypertension: Qualified Codes: I10 - Essential (primary) hypertension Xu Hoover DO Jun 26, 2017 09:00
[2017-06-26 09:47] LABS: AUTOMATED NEUTROPHIL # 5.8 TH/MM3 (1.8-7.7); BASOPHIL # 0.1 TH/MM3 (0-0.2); BASOPHIL % 0.6 % (0.0-2.0); EOSINOPHIL # 0.1 TH/MM3 (0-0.4); EOSINOPHIL % 1.2 % (0.0-4.0); HEMATOCRIT 27.5 % (35.0-46.0); LYMPH % 17.4 % (9.0-44.0); LYMPHOCYTE # 1.8 TH/MM3 (1.0-4.8); MEAN CELL VOLUME 86.8 FL (80.0-100.0); MEAN CORPUSCULAR HEMOGLOBIN 30.3 PG (27.0-34.0); MONO % 24.5 % (0.0-8.0); NEUT % 56.3 % (16.0-70.0); PLATELET COUNT 337 TH/MM3 (150-450); RED BLOOD COUNT 3.16 MIL/MM3 (4.00-5.30); RED CELL DISTRIBUTION WIDTH 15.3 % (11.6-17.2); WHITE BLOOD COUNT 10.2 TH/MM3 (4.0-11.0)
[2017-06-26 09:48] LABS: HEMO FLAGS AUTO DIFF
[2017-06-26 10:14] LABS: BANDS 5 % (0-6); EOSINOPHILS 1 % (0-4); METAMYELOCYTES 2 % (0-1); MYELOCYTES 1 % (0-0); NEUTROPHIL # MANUAL DIFF 6.2 TH/MM3 (1.8-7.7); POLYS (SEG NEUTROPHILS) 53 % (16-70); WBC DIFF SAMPLE 100
[2017-06-26 10:15] LABS: PLATELET ESTIMATE SMEAR NORMAL (NORMAL); PLATELET MORPHOLOGY NORMAL (NORMAL); SCAN/DIFF FINAL DIFF MANUAL
[2017-06-26] MEDS: INSULIN DETEMIR 100 UNITS/ML VIAL SQ SCH ×2 (10:19→21:43)
[2017-06-26] MEDS: ENOXAPARIN SODIUM 40 MG/0.4 ML SYRINGE SQ SCH (10:20)
[2017-06-26] MEDS: SODIUM CHLORIDE 0.9% FLUSH 10 ML FLUSH IV FLUSH SCH ×3 (10:20→21:00)
[2017-06-26 10:29] LABS: POTASSIUM 4.1 MEQ/L (3.5-5.1)
[2017-06-26] MEDS: CEFEPIME INJ 2,000 MG in SODIUM CHLORIDE 0.9% INJ 100 ML IV SCH ×2 (11:02→21:25)
[2017-06-26] MEDS ORDERED: DEXAMETHASONE INJ 20 MG in SODIUM CHLORIDE 0.9% INJ 50 ML IV ONE (11:30)
[2017-06-26] MEDS ORDERED: GRANISETRON HCL 1 MG/ML VIAL IV PUSH ONE (11:30)
[2017-06-26] MEDS ORDERED: DEXTROSE 5% IV ONE ×4 (12:00)
[2017-06-26] MEDS ORDERED: WATE IV ONE ×2 (12:00)
[2017-06-26] MEDS ORDERED: WATER IV ONE ×2 (12:00)
[2017-06-26] MEDS ORDERED: ALTEPLASE RECOMBINANT 2 MG VIAL IV FLUSH ONE (12:00)
[2017-06-26] MEDS ORDERED: OXALIPLATIN IV ONE ×2 (12:00)
[2017-06-26] MEDS ORDERED: DEXTROSE 5% IN WATER INJ 250 ML IV SCH (12:00)
[2017-06-26] MEDS ORDERED: LEUCOVORIN IV ONE ×2 (12:00)
[2017-06-26] MEDS ORDERED: REMOVE OLD DURAGESIC (FENTANYL) PATCH T-DERMAL SCH (13:00)
[2017-06-26] MEDS ORDERED: fentaNYL 75 MCG/HR PATCH T-DERMAL SCH (13:00)
[2017-06-26] MEDS ORDERED: FLUOROURACIL 500 MG/10 ML VIAL IV PUSH ONE (14:00)
[2017-06-26] MEDS ORDERED: HEPARIN IV ONE (15:00)
[2017-06-26] MEDS ORDERED: SODIUM CHLORIDE 0.9% IV ONE (15:00)
[2017-06-26] MEDS ORDERED: FLUOROURACIL IV ONE (15:00)
[2017-06-26] MEDS: ASPIRIN EC 81 MG TABEC PO SCH (21:00)
[2017-06-26] MEDS: SODIUM CHLORIDE IV-CENTRAL SCH ×9 (21:20)
[2017-06-26] MEDS: SODIUM ACETATE IV-CENTRAL SCH ×9 (21:20)
[2017-06-26] MEDS: FAT EMULSION 20% INJ 250 ML (@10 mls/hr) IV-CENTRAL SCH (21:20)
[2017-06-26] MEDS: [UNRECOGNIZED DRUG - OTHER] IV-CENTRAL SCH ×9 (21:20)
[2017-06-27] VITALS (10 sets, daily range): BP systolic 108–153; BP diastolic 66–91; PULSE 113–128; RESP 12–19; TEMP 97.8–99.4; O2SAT 92–93
[2017-06-27] MEDS: METOPROLOL TARTRATE 50 MG TAB PEG SCH ×5 (00:17→23:29)
[2017-06-27] MEDS: HYDROmorphone HCL PF 1 MG/ML VIAL IV PUSH PRN ×9 (00:18→22:25)
[2017-06-27] MEDS: METOCLOPRAMIDE HCL 10 MG/2 ML VIAL IV PUSH SCH ×3 (05:13→22:22)
[2017-06-27] MEDS: MUPIROCIN 2% OINT 22 GM TUBE TOPICAL SCH ×3 (05:14→22:31)
[2017-06-27 05:50] LABS: BASOPHIL % 0.2 % (0.0-2.0); EOSINOPHIL % 0.1 % (0.0-4.0); HEMATOCRIT 27.9 % (35.0-46.0); LYMPH % 12.2 % (9.0-44.0); LYMPHOCYTE # 1.6 TH/MM3 (1.0-4.8); MEAN CELL VOLUME 87.5 FL (80.0-100.0); MEAN CORPUSCULAR HEMOGLOBIN 28.7 PG (27.0-34.0); MEAN CORPUSCULAR HGB CONC 32.8 % (32.0-36.0); NEUT % 62.5 % (16.0-70.0); PLATELET COUNT 376 TH/MM3 (150-450); RED BLOOD COUNT 3.18 MIL/MM3 (4.00-5.30); RED CELL DISTRIBUTION WIDTH 15.4 % (11.6-17.2); WHITE BLOOD COUNT 12.8 TH/MM3 (4.0-11.0)
[2017-06-27 05:52] LABS: HEMO FLAGS AUTO DIFF
[2017-06-27 06:21] LABS: ANION GAP 5 MEQ/L (5-15); AST (GOT) 26 U/L (15-37); BICARBONATE 29.8 MEQ/L (21.0-32.0); BLOOD UREA NITROGEN 13 MG/DL (7-18); CHLORIDE 98 MEQ/L (98-107); GLOMERULAR FILTRATION RATE 136 ML/MIN (>89); POTASSIUM 4.6 MEQ/L (3.5-5.1); SODIUM (NA) 133 MEQ/L (136-145)
[2017-06-27 06:24] LABS: ALKALINE PHOSPHATASE 117 U/L (45-117); ALT (GPT) 17 U/L (10-53); TOTAL BILIRUBIN ADULT 0.9 MG/DL (0.2-1.0)
[2017-06-27 07:39] LABS: BANDS 11 % (0-6); CORRECTED NUCLEATED RBC 1 /100 WBC (0-0); METAMYELOCYTES 1 % (0-1); MYELOCYTES 4 % (0-0); NEUTROPHIL # MANUAL DIFF 10.4 TH/MM3 (1.8-7.7); PLATELET ESTIMATE SMEAR NORMAL (NORMAL); PLATELET MORPHOLOGY NORMAL (NORMAL); POLYS (SEG NEUTROPHILS) 65 % (16-70); SCAN/DIFF FINAL DIFF MANUAL; WBC DIFF SAMPLE 100
--- NOTE | 2017-06-27 08:16 | PD.ONC.PN ---
Subjective Subjective Remarks Afebrile Tolerated chemotherapy yesterday Reports she had a great night Has some cold sensitivity to the alcohol based setter out on her fingers Objective Data Date Time Temp Pulse Resp B/P (MAP) Pulse Ox O2 Delivery O2 Flow Rate FiO2 06/27/17 05:05 98.5 118 19 143/83 (103) 93 06/27/17 00:24 97.8 128 18 153/89 (110) 92 06/26/17 20:25 21 06/26/17 20:00 129 06/26/17 20:00 98.4 127 19 148/86 (106) 92 06/26/17 17:13 98.4 117 14 156/88 (110) 93 06/26/17 14:08 99.2 107 14 116/75 (89) 91 06/26/17 10:00 99.3 120 12 138/85 (102) 06/27/17 06/27/17 06/27/17 07:00 15:00 23:00 Intake Total 240 ml Output Total 1050 ml Balance -810 ml Result Diagram: 06/27/1720 06/27/17 0520 Laboratory Results Laboratory Tests Test 06/26/17 09:00 06/27/17 05:20 White Blood Count 10.2 TH/MM3 12.8 TH/MM3 Red Blood Count 3.16 MIL/MM3 3.18 MIL/MM3 Hemoglobin 9.6 GM/DL 9.1 GM/DL Hematocrit 27.5 % 27.9 % Mean Corpuscular Volume 86.8 FL 87.5 FL Mean Corpuscular Hemoglobin 30.3 PG 28.7 PG Mean Corpuscular Hemoglobin Concent 35.0 % 32.8 % Red Cell Distribution Width 15.3 % 15.4 % Platelet Count 337 TH/MM3 376 TH/MM3 Mean Platelet Volume 7.9 FL 7.6 FL Neutrophils (%) (Auto) 56.3 % 62.5 % Lymphocytes (%) (Auto) 17.4 % 12.2 % Monocytes (%) (Auto) 24.5 % 25.0 % Eosinophils (%) (Auto) 1.2 % 0.1 % Basophils (%) (Auto) 0.6 % 0.2 % Neutrophils # (Auto) 5.8 TH/MM3 8.0 TH/MM3 Lymphocytes # (Auto) 1.8 TH/MM3 1.6 TH/MM3 Monocytes # (Auto) 2.5 TH/MM3 3.2 TH/MM3 Eosinophils # (Auto) 0.1 TH/MM3 0.0 TH/MM3 Basophils # (Auto) 0.1 TH/MM3 0.0 TH/MM3 CBC Comment AUTO DIFF AUTO DIFF Differential Total Cells Counted 100 100 Neutrophils % (Manual) 53 % 65 % Band Neutrophils % 5 % 11 % Lymphocytes % 16 % 10 % Monocytes % 22 % 9 % Eosinophils % 1 % Neutrophils # (Manual) 6.2 TH/MM3 10.4 TH/MM3 Metamyelocytes 2 % 1 % Myelocytes 1 % 4 % Differential Comment FINAL DIFF MANUAL FINAL DIFF MANUAL Platelet Estimate NORMAL NORMAL Platelet Morphology Comment NORMAL NORMAL Red Cell Morphology Comment NORMAL NORMAL Blood Urea Nitrogen 14 MG/DL 13 MG/DL Creatinine 0.51 MG/DL 0.48 MG/DL Random Glucose 136 MG/DL 167 MG/DL Calcium Level 8.3 MG/DL 8.5 MG/DL Phosphorus Level 3.0 MG/DL Magnesium Level 2.0 MG/DL Sodium Level 134 MEQ/L 133 MEQ/L Potassium Level 4.1 MEQ/L 4.6 MEQ/L Chloride Level 97 MEQ/L 98 MEQ/L Carbon Dioxide Level 28.0 MEQ/L 29.8 MEQ/L Anion Gap 9 MEQ/L 5 MEQ/L Estimat Glomerular Filtration Rate 127 ML/MIN 136 ML/MIN Nucleated Red Blood Cells 1 /100 WBC Total Protein 7.0 GM/DL Albumin 2.0 GM/DL Alkaline Phosphatase 117 U/L Aspartate Amino Transf (AST/SGOT) 26 U/L Alanine Aminotransferase (ALT/SGPT) 17 U/L Total Bilirubin 0.9 MG/DL Administered Medications Medications (Trade) Dose Ordered Sig/Nelda Route PRN Reason Start Time Stop Time Status Last Admin Dose Admin Sodium Chloride (NS Flush) 2 ml UNSCH PRN IV FLUSH FLUSH AFTER USING IV ACCESS 05/31/17 16:00 06/15/17 03:23 Sodium Chloride (NS Flush) 2 ml BID IV FLUSH 05/31/17 21:00 06/26/17 10:20 Aspirin (Ecotrin Ec) 81 mg HS PO 05/31/17 21:00 06/23/17 20:24 Miscellaneous (Pill Splitter) 1 ea UNSCH PRN OTHER SEE LABEL COMMENTS 05/31/17 21:00 06/12/17 09:05 Ondansetron HCl (Zofran Inj) 4 mg Q4H PRN IV PUSH NAUSEA 06/07/17 21:00 06/26/17 04:25 Pantoprazole Sodium (Protonix Inj) 40 mg Q12H IV PUSH 06/08/17 21:00 06/26/17 21:30 Fat Emulsion Intravenous 250 ml @ 10 mls/hr Q24H IV-CENTRAL 06/10/17 20:00 06/26/17 21:20 Phenol (Chloraseptic [place]) 2 spray Q2H PRN OROPHARYNG throat pain 06/11/17 12:00 06/12/17 02:47 Sodium Chloride (NS Flush) See Protocol DAILY IV FLUSH 06/12/17 09:00 06/26/17 10:21 Heparin Sodium (Porcine) (Heparin Central Flush) See Protocol DAILY IV FLUSH 06/12/17 09:00 06/26/17 10:20 Heparin Sodium (Porcine) (Heparin Central Flush) See Protocol UNSCH PRN IV FLUSH SEE PROTOCOL TABLE 06/11/17 12:30 06/23/17 06:32 Sodium Chloride (NS Flush) UNSCH PRN IV FLUSH SEE PROTOCOL TABLE 06/11/17 12:30 06/23/17 06:31 Metoclopramide HCl (Reglan Inj) 5 mg Q8HR IV PUSH 06/13/17 14:00 06/27/17 05:13 Enoxaparin Sodium (Lovenox Inj) 40 mg Q24H SQ 06/13/17 08:15 Future hold 06/26/17 10:20 Lorazepam (Ativan Inj) 0.5 mg Q6H PRN IV PUSH nausea/anxiety 06/13/17 14:45 06/24/17 16:31 Insulin Detemir (Levemir Inj) 30 units Q12HR SQ 06/18/17 09:00 06/26/17 21:43 Insulin Aspart (NovoLOG SUPPLEMENTAL SCALE) 1 ACHS SLIDING SCALE SQ 06/18/17 08:00 06/26/17 21:43 Hydromorphone HCl (Dilaudid Pf Inj) 1 mg Q2H PRN IV PUSH pain 3-10 06/19/17 09:00 06/27/17 05:26 Sodium Chloride 11 meq/Sodium Acetate 59 meq/ Potassium Chloride 120 meq/ Sodium Phosphate 40 meq/Magnesium Chloride 10 meq/ Calcium Chloride 9 meq/ Multivitamins 10 ml/Folic Acid 1 mg/Amino Acids/ Dextrose 2,124.1437 ml @ 75 mls/hr Q24H IV-CENTRAL 06/19/17 20:00 06/26/17 21:20 Docusate Sodium (Colace) 100 mg BID PO 06/21/17 21:00 06/23/17 20:24 Furosemide (Lasix Inj) 20 mg BID@09,18 IV PUSH 06/22/17 09:00 06/26/17 17:17 Cefepime HCl 2000 mg/Sodium Chloride 100 ml @ 200 mls/hr Q12H IV 06/23/17 10:00 06/26/17 21:25 Mupirocin (Bactroban 2% Oint) 1 applic Q8HR TOPICAL 06/23/17 09:00 06/27/17 05:14 Metoprolol Tartrate (Lopressor) 75 mg Q6HR PEG 06/24/17 12:00 06/27/17 05:13 Fluorouracil 4560 mg/Heparin Sodium (Porcine) 5750 units/Sodium Chloride 92 ml @ 2 mls/hr ONCE ONCE IV 06/26/17 15:00 06/28/17 12:59 06/26/17 16:31 Fentanyl (Duragesic 75 Mcg Patch.72 Hr) 1 patch Q3D T-DERMAL 06/26/17 13:00 06/26/17 17:32 Miscellaneous Information 1 Q3D T-DERMAL 06/26/17 13:00 06/26/17 13:00 Objective Remarks SKIN: Warm and dry. HEAD: Normocephalic. EYES: No injection or drainage. NECK: Supple, trachea midline. CARDIOVASCULAR: +S1/S2. Tachycardia. RESPIRATORY: Clear anteriorly. Breathing unlabored at rest. GASTROINTESTINAL: Abdomen distended, firm. G tube to LUQ draining bile to suction canister EXTREMITIES: No cyanosis. Generalized edema to bilateral lower extremities MUSCULOSKELETAL: Generalized weakness NEUROLOGICAL: No obvious focal deficit. Awake, alert, and oriented x3. Assessment/Plan Assessment Ms. Vicente is a 52-year-old female with a 2.5 month history of progressive epigastric pain, nausea, vomiting and abdominal distension. She was noted on imaging studies on 06/10/2017 to have omental thickening and ascites. Omental biopsy revealed findings highly concerning for a high-grade adenocarcinoma with signet cell features. An EGD ensued and the EGD revealed an antral mass involving the gastric wall associated with ulceration and thickening. 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 Her major complaints are that of abdominal distension, pain and nausea. Plan 1. Patient tolerated chemotherapy well yesterday; she has some side effects with cold sensitivity that are common with oxaliplatin that should begin to subside the further away she gets from the infusion of chemotherapy 2. Continue to assess for gastric outlet obstruction with occasional clamping of PEG tube for po medications 3. Monitor CBC, CMP 4. Supportive care Attending Statement The exam, history, and the medical decision-making described in the above note were completed with the assistance of the mid-level provider. I reviewed and agree with the findings presented. I attest that I had a [id number] encounter with the patient on the same day, and personally performed and documented my assessment and findings in the medical record. Still has abdominal pain but controlled. +cold induced paresthesia due to chemotherapy. Continue day 2 of chemotherapy. Possible paracentesis if still symptomatic. Jami Vázquez Jun 27, 2017 08:16 Anthony Cohen MD Jun 27, 2017 13:18
[2017-06-27] MEDS: DOCUSATE SODIUM 100 MG CAP PO SCH ×2 (09:00→22:29)
--- NOTE | 2017-06-27 09:38 | HHI.PR ---
Subjective Remarks Pain was much better controlled with in increased dose of the Fentanyl patch started yesterday but she did receive a few doses of the IV Dilaudid over night. HR is still in the 110-120's fairly consistently Nurse reports that she is clamping the PEG tube for at least 30 mins after giving Metoprolol. Afebrile Objective Vitals Vital Signs Date Time Temp Pulse Resp B/P (MAP) Pulse Ox O2 Delivery O2 Flow Rate FiO2 06/27/17 05:05 98.5 118 19 143/83 (103) 93 06/27/17 00:24 97.8 128 18 153/89 (110) 92 06/26/17 20:25 21 06/26/17 20:00 129 06/26/17 20:00 98.4 127 19 148/86 (106) 92 06/26/17 17:13 98.4 117 14 156/88 (110) 93 06/26/17 14:08 99.2 107 14 116/75 (89) 91 06/26/17 10:00 99.3 120 12 138/85 (102) Result Diagram: 06/27/17 0520 06/27/17 0520 Other Results Laboratory Tests Test 06/26/17 09:00 06/27/17 05:20 White Blood Count 10.2 TH/MM3 12.8 TH/MM3 Red Blood Count 3.16 MIL/MM3 3.18 MIL/MM3 Hemoglobin 9.6 GM/DL 9.1 GM/DL Hematocrit 27.5 % 27.9 % Mean Corpuscular Volume 86.8 FL 87.5 FL Mean Corpuscular Hemoglobin 30.3 PG 28.7 PG Mean Corpuscular Hemoglobin Concent 35.0 % 32.8 % Red Cell Distribution Width 15.3 % 15.4 % Platelet Count 337 TH/MM3 376 TH/MM3 Mean Platelet Volume 7.9 FL 7.6 FL Neutrophils (%) (Auto) 56.3 % 62.5 % Lymphocytes (%) (Auto) 17.4 % 12.2 % Monocytes (%) (Auto) 24.5 % 25.0 % Eosinophils (%) (Auto) 1.2 % 0.1 % Basophils (%) (Auto) 0.6 % 0.2 % Neutrophils # (Auto) 5.8 TH/MM3 8.0 TH/MM3 Lymphocytes # (Auto) 1.8 TH/MM3 1.6 TH/MM3 Monocytes # (Auto) 2.5 TH/MM3 3.2 TH/MM3 Eosinophils # (Auto) 0.1 TH/MM3 0.0 TH/MM3 Basophils # (Auto) 0.1 TH/MM3 0.0 TH/MM3 CBC Comment AUTO DIFF AUTO DIFF Differential Total Cells Counted 100 100 Neutrophils % (Manual) 53 % 65 % Band Neutrophils % 5 % 11 % Lymphocytes % 16 % 10 % Monocytes % 22 % 9 % Eosinophils % 1 % Neutrophils # (Manual) 6.2 TH/MM3 10.4 TH/MM3 Metamyelocytes 2 % 1 % Myelocytes 1 % 4 % Differential Comment FINAL DIFF MANUAL FINAL DIFF MANUAL Platelet Estimate NORMAL NORMAL Platelet Morphology Comment NORMAL NORMAL Red Cell Morphology Comment NORMAL NORMAL Blood Urea Nitrogen 14 MG/DL 13 MG/DL Creatinine 0.51 MG/DL 0.48 MG/DL Random Glucose 136 MG/DL 167 MG/DL Calcium Level 8.3 MG/DL 8.5 MG/DL Phosphorus Level 3.0 MG/DL Magnesium Level 2.0 MG/DL Sodium Level 134 MEQ/L 133 MEQ/L Potassium Level 4.1 MEQ/L 4.6 MEQ/L Chloride Level 97 MEQ/L 98 MEQ/L Carbon Dioxide Level 28.0 MEQ/L 29.8 MEQ/L Anion Gap 9 MEQ/L 5 MEQ/L Estimat Glomerular Filtration Rate 127 ML/MIN 136 ML/MIN Nucleated Red Blood Cells 1 /100 WBC Total Protein 7.0 GM/DL Albumin 2.0 GM/DL Alkaline Phosphatase 117 U/L Aspartate Amino Transf (AST/SGOT) 26 U/L Alanine Aminotransferase (ALT/SGPT) 17 U/L Total Bilirubin 0.9 MG/DL Imaging Last Impressions Gastrostomy Tube Placement 06/16/17 0000 Signed Impressions: Service Date/Time: Friday, June 16, 2017 15:58 - CONCLUSION: Uncomplicated gastrostomy tube placement as above. Carl Lamar Jr., MD Chest X-Ray 06/14/17 0000 Signed Impressions: Service Date/Time: Wednesday, June 14, 2017 17:04 - CONCLUSION: Stable chest x-ray with a small to moderate size left pleural effusion with associated volume loss and/or consolidation. Chilango Shaw MD Abdomen X-Ray 06/14/17 0000 Signed Impressions: Service Date/Time: Wednesday, June 14, 2017 13:22 - CONCLUSION: 1. Nasogastric tube distal tip in the gastric body. 2. Stable small to moderate size left pleural effusion. Chilango Shaw MD Abdomen Ultrasound 06/14/17 0000 Signed Impressions: Service Date/Time: Wednesday, June 14, 2017 09:29 - CONCLUSION: Small volume of free fluid is present within the abdomen or pelvis. Chilango Shaw MD Lower Extremity Ultrasound 06/12/17 0000 Signed Impressions: Service Date/Time: Monday, June 12, 2017 14:04 - CONCLUSION: Normal examination. Ron Kim MD Abdomen/Pelvis CT 06/09/17 0000 Signed Impressions: Service Date/Time: Friday, June 09, 2017 12:50 - CONCLUSION: 1. Diffuse abdominal ascites. With omental thickening. Ascites could either be from cirrhotic changes or peritoneal carcinomatosis. 2. No findings to indicate bowel obstruction. 3. Small bilateral effusions with dependent atelectasis. Xavier Kellogg MD Paracentesis 06/04/17 0000 Signed Impressions: Service Date/Time: Sunday, June 04, 2017 14:57 - CONCLUSION: Uncomplicated CT Guided paracentesis with removal of 3.6 L of fluid. Sample was saved and sent to the lab for evaluation. Chilango Shaw MD Abdomen Biopsy CT 06/04/17 0000 Signed Impressions: Service Date/Time: Sunday, June 04, 2017 14:57 - CONCLUSION: Uncomplicated CT guided biopsy of the omentum. Chilango Shaw MD Liver Ultrasound 06/02/17 0000 Signed Impressions: Service Date/Time: Friday, June 02, 2017 23:21 - CONCLUSION: 1. Cirrhosis 2. Possible mass right lobe of the liver. MRI is recommended for further evaluation if clinically indicated. 3. Moderate ascites Mert Paige MD Cyst Biopsy Asp-Paracentesis US 05/31/17 0000 Signed Impressions: Service Date/Time: Wednesday, May 31, 2017 16:43 - CONCLUSION: Uncomplicated ultrasound guided paracentesis. Minimal fluid aspirated. 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 - Pt presented to the ED with complaints of worsening abdominal pain and distension. She states that she has been having issues with abd pain for the last 2 months. For the last 2 weeks she has been having increased generalized abd pain and distension which has been significantly worse over the last 2 days. - CT Abd/pelvis revealed ascites appears complex and new from 03/23/17. - She was previously seen in the ED on 03/[address] abd/pelvis at that time noted an 18mm lesion in the right lobe of the liver, with features favoring hemangioma. She was sent for followup as an outpt with GI. She had an MRI Abdomen W/O Contrast (05/13/17) with benign hemangioma in the caudate lobe of the liver corresponding to the lesion identified on CT otherwise normal examination. - Outpt workup with GI in April 2017 revealed positive ASMA, positive RACHELE, and RODRIGUEZ FibroSURE with fibrosis score of 0.04 (No fibrosis), Steatosis score of 0.78/S3 (marked or severe steatosis). Viral Hepatitis was negative. IgG subclasses were WNL, LKM Ab negative, AMA negative, Iron studies WNL, Ferritin 160 (slightly elevated), Ceruloplasmin WNL. Labs on 05/12/17 with AST 54, ALT 81, AlkPhos 92, Tbili 0.8 , DBili 0.2. autoimmune hepatitis was questioned. - Pt had diagnostic paracentesis on 05/31 with removal of 15cc of fluid - Cell count for the fluid noted WBC count 1657 - Fluid culture with no growth - cytology --> atypical epithelioid cells suspicious for malignancy - Repeat paracentesis 06/04/17 - 3,600ml of ascites removed - Ascitic Cell count: WBC 494, RBC 6525 - Fluid culture shows ngtd - cytology -->suspicious for malignant cells - Pt underwent Omental Biopsy (06/04/17) --> path suspicious for signet cell adenoca - EGD 06/11 --> antral ulcerated mass with near obstruction of outlet. 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 - Heme-Onc, Dr. Davis, is following. - She was started on palliative systemic therapy with FOLFOX to help debulk her tumor to relieve some of her gastric symptoms of obstruction - She received cycle 1 day 1 was 06/12/2017. - Pt started cycle 2 on 06/26 - NGT placed for decompression for malignant bowel obstruction - General Surgery was consulted but its felt that currently the pt will not benefit from J tube and she will be unable to undergo enteral nutrition. - IR placed G tube on 06/16. removed NGT on 06/17 - PICC line placed 06/11 and pt is on TPN - G tube to gravity. - Pt NOT able to tolerate PO intake. - Pt is TPN dependent for nutritional support - Pt's blood sugar are now stable with NO basal insulin added to TPN; BID Levemir; SSI - On 06/23, G-tube site appeared infected - Wound Culture (06/23) --> anaerobic gram negative rods, I discussed case with lab and requested further analysis with speciation and sensitivity, final ID will take an additional 48 hrs rom - IV Cefepime and topical Bactroban. - Pt's pain being addressed with Fentanyl transdermal 50mcg and prn IV dilaudid - Fentanyl increased to 75mcg on 06/26 with better pain control at this time - Cont. IV Dilaudid PRN - Daily PT - DNR - DVT prophylaxis with lovenox - Tenatively pt's is planned for transfer to [facility] following repeat Chemotherapy this weekend. - Pt will require continued mgmt of TPN and G-tube (2) Sinus tachycardia ICD Codes: R00.0 - Tachycardia, unspecified Status: Acute Plan: - Pt developed sinus tachycardia with rates into the 140's, felt to likely be secondary to physiological response related to her malignant/obstructive process and stopping her chronic bb. - Pt receiving PO Lopressor 75mg q6h with G-tube suction held for 30min - HR still generally in the 110-120's and upwards of 140s - May need to increase the dose on the Metoprolol - Monitor (3) Abdominal pain ICD Codes: R10.9 - Unspecified abdominal pain Status: Acute Plan: - See above. (4) Ascites ICD Codes: R18.8 - Other ascites Status: Acute Plan: - See above - Pts last paracentesis was on 06/04 with removal of 3600cc of ascetic fluid - continue IV Lasix - At this time pt does have some ascites that could be drained but she wants to hold off on repeat paracentesis as the last one was very painful per the pt - Will readdress in the next 1-2 days. (5) Hypertension ICD Codes: I10 - Essential (primary) hypertension Status: Chronic Plan: - See above (6) Hyperlipidemia ICD Codes: E78.5 - Hyperlipidemia, unspecified Status: Chronic Plan: - Statin was held as an outpt (7) CAD (coronary artery disease) ICD Codes: I25.10 - Atherosclerotic heart disease of [place] coronary artery without angina pectoris Status: Chronic Plan: - Pt with hx of CAD and NSTEMI in 2010 s/p stent in the RCA (8) Tobacco abuse ICD Codes: Z72.0 - Tobacco use Status: Chronic Assessment and Plan Patient examined. Assessment and plan formulated with Rosemary Fong PA-C. I agree with the above. Problem Qualifiers (1) Abdominal pain: Qualified Codes: R10.84 - Generalized abdominal pain (2) Ascites: Qualified Codes: R18.8 - Other ascites (3) Hypertension: Qualified Codes: I10 - Essential (primary) hypertension Rosemary Fong Jun 27, 2017 09:38 Xu Hoover DO Jun 28, 2017 13:46
[2017-06-27] MEDS: CEFEPIME INJ 2,000 MG in SODIUM CHLORIDE 0.9% INJ 100 ML IV SCH ×2 (09:40→22:29)
[2017-06-27] MEDS: ONDANSETRON HCL 4 MG/2 ML VIAL IV PUSH PRN ×2 (09:40→19:52)
[2017-06-27] MEDS: PANTOPRAZOLE SODIUM 40 MG VIAL IV PUSH SCH ×2 (09:41→22:25)
[2017-06-27] MEDS: ENOXAPARIN SODIUM 40 MG/0.4 ML SYRINGE SQ SCH (09:41)
[2017-06-27] MEDS: FUROSEMIDE 20 MG/2 ML VIAL IV PUSH SCH ×2 (09:42→17:57)
[2017-06-27] MEDS: INSULIN DETEMIR 100 UNITS/ML VIAL SQ SCH ×2 (09:44→22:19)
[2017-06-27] MEDS: SODIUM CHLORIDE 0.9% FLUSH 10 ML FLUSH IV FLUSH SCH ×3 (09:48→20:25)
[2017-06-27] MEDS: INSULIN ASPART SUPPLEMENTAL SCALE SQ SCH ×4 (10:08→22:19)
[2017-06-27] MEDS: SODIUM CHLORIDE IV-CENTRAL SCH ×9 (20:08)
[2017-06-27] MEDS: SODIUM ACETATE IV-CENTRAL SCH ×9 (20:08)
[2017-06-27] MEDS: [UNRECOGNIZED DRUG - OTHER] IV-CENTRAL SCH ×9 (20:08)
[2017-06-27] MEDS: FAT EMULSION 20% INJ 250 ML (@10 mls/hr) IV-CENTRAL SCH (20:15)
[2017-06-27] MEDS: ASPIRIN EC 81 MG TABEC PO SCH (22:29)
[2017-06-28] VITALS (21 sets, daily range): BP systolic 120–156; BP diastolic 70–95; PULSE 93–135; RESP 18–20; TEMP 98.7–99.1; O2SAT 92–96
[2017-06-28] MEDS: ONDANSETRON HCL 4 MG/2 ML VIAL IV PUSH PRN ×3 (00:40→18:26)
[2017-06-28] MEDS: HYDROmorphone HCL PF 1 MG/ML VIAL IV PUSH PRN ×10 (00:43→20:46)
[2017-06-28] MEDS: METOPROLOL TARTRATE 5 MG/5 ML VIAL IV PUSH PRN ×2 (01:15→05:53)
[2017-06-28] MEDS: SODIUM CHLORIDE 0.9% FLUSH 10 ML FLUSH IV FLUSH PRN (03:49)
[2017-06-28 06:10] LABS: HEMATOCRIT 27.8 % (35.0-46.0); MEAN CELL VOLUME 87.9 FL (80.0-100.0); MEAN CORPUSCULAR HEMOGLOBIN 28.8 PG (27.0-34.0); MEAN CORPUSCULAR HGB CONC 32.8 % (32.0-36.0); PLATELET COUNT 387 TH/MM3 (150-450); RED BLOOD COUNT 3.16 MIL/MM3 (4.00-5.30); RED CELL DISTRIBUTION WIDTH 15.6 % (11.6-17.2); WHITE BLOOD COUNT 8.9 TH/MM3 (4.0-11.0)
[2017-06-28 06:12] LABS: HEMO FLAGS AUTO DIFF
[2017-06-28] MEDS: METOCLOPRAMIDE HCL 10 MG/2 ML VIAL IV PUSH SCH ×3 (06:26→22:24)
[2017-06-28] MEDS: METOPROLOL TARTRATE 50 MG TAB PEG SCH (06:33)
[2017-06-28] MEDS: MUPIROCIN 2% OINT 22 GM TUBE TOPICAL SCH ×3 (06:36→22:26)
[2017-06-28 06:37] LABS: ANION GAP 5 MEQ/L (5-15); AST (GOT) 33 U/L (15-37); BICARBONATE 30.6 MEQ/L (21.0-32.0); BLOOD UREA NITROGEN 17 MG/DL (7-18); CHLORIDE 98 MEQ/L (98-107); GLOMERULAR FILTRATION RATE 105 ML/MIN (>89); POTASSIUM 4.4 MEQ/L (3.5-5.1); SODIUM (NA) 134 MEQ/L (136-145)
[2017-06-28 06:38] LABS: ALT (GPT) 17 U/L (10-53)
[2017-06-28 06:40] LABS: ALKALINE PHOSPHATASE 152 U/L (45-117)
[2017-06-28 07:08] LABS: BANDS 21 % (0-6); CORRECTED NUCLEATED RBC 1 /100 WBC (0-0); EOSINOPHILS 1 % (0-4); MYELOCYTES 1 % (0-0); NEUTROPHIL # MANUAL DIFF 6.8 TH/MM3 (1.8-7.7); PLATELET ESTIMATE SMEAR NORMAL (NORMAL); PLATELET MORPHOLOGY NORMAL (NORMAL); POLYS (SEG NEUTROPHILS) 54 % (16-70); SCAN/DIFF FINAL DIFF MANUAL; WBC DIFF SAMPLE 100
[2017-06-28] MEDS: INSULIN ASPART SUPPLEMENTAL SCALE SQ SCH ×4 (08:00→22:58)
--- NOTE | 2017-06-28 08:24 | PD.ONC.PN ---
Subjective Subjective Remarks Pt seen and examined. She will complete C 2 FOLFOX later this morning. She is tolerating treatment well. She tells me she does not want a paracentesis. Objective Data Date Time Temp Pulse Resp B/P (MAP) Pulse Ox O2 Delivery O2 Flow Rate FiO2 06/28/17 06:32 119 136/84 (101) 06/28/17 06:13 117 139/90 (106) 06/28/17 06:01 116 148/86 (106) 06/28/17 05:50 133 120/88 (99) 06/28/17 04:09 119 06/28/17 03:56 99.1 120 18 127/76 (93) 92 06/28/17 01:34 113 156/80 (105) 06/28/17 01:23 114 138/86 (103) 06/28/17 01:10 128 135/95 (108) 06/28/17 00:04 118 06/27/17 23:25 99.3 127 18 126/90 (102) 92 06/27/17 20:11 118 06/27/17 19:53 99.4 118 18 108/66 (80) 93 06/27/17 17:00 98.6 124 14 137/82 (100) 92 06/27/17 13:04 98.3 116 16 141/91 (108) 92 06/27/17 11:05 92 06/27/17 09:34 98.1 125 12 151/81 (104) 93 06/28/17 06/28/17 06/28/17 07:00 15:00 23:00 Intake Total 280 ml Output Total 1000 ml Balance -720 ml Result Diagram: 06/28/17 0345 06/28/17 0345 Laboratory Results Laboratory Tests Test 06/28/17 03:45 White Blood Count 8.9 TH/MM3 Red Blood Count 3.16 MIL/MM3 Hemoglobin 9.1 GM/DL Hematocrit 27.8 % Mean Corpuscular Volume 87.9 FL Mean Corpuscular Hemoglobin 28.8 PG Mean Corpuscular Hemoglobin Concent 32.8 % Red Cell Distribution Width 15.6 % Platelet Count 387 TH/MM3 Mean Platelet Volume 8.1 FL CBC Comment AUTO DIFF Differential Total Cells Counted 100 Neutrophils % (Manual) 54 % Band Neutrophils % 21 % Lymphocytes % 15 % Monocytes % 8 % Eosinophils % 1 % Neutrophils # (Manual) 6.8 TH/MM3 Myelocytes 1 % Nucleated Red Blood Cells 1 /100 WBC Differential Comment FINAL DIFF MANUAL Platelet Estimate NORMAL Platelet Morphology Comment NORMAL Blood Urea Nitrogen 17 MG/DL Creatinine 0.60 MG/DL Random Glucose 149 MG/DL Total Protein 7.1 GM/DL Albumin 2.1 GM/DL Calcium Level 8.2 MG/DL Magnesium Level 2.0 MG/DL Alkaline Phosphatase 152 U/L Aspartate Amino Transf (AST/SGOT) 33 U/L Alanine Aminotransferase (ALT/SGPT) 17 U/L Total Bilirubin 1.0 MG/DL Sodium Level 134 MEQ/L Potassium Level 4.4 MEQ/L Chloride Level 98 MEQ/L Carbon Dioxide Level 30.6 MEQ/L Anion Gap 5 MEQ/L Estimat Glomerular Filtration Rate 105 ML/MIN Administered Medications Medications (Trade) Dose Ordered Sig/Nelda Route PRN Reason Start Time Stop Time Status Last Admin Dose Admin Sodium Chloride (NS Flush) 2 ml UNSCH PRN IV FLUSH FLUSH AFTER USING IV ACCESS 05/31/17 16:00 06/28/17 03:49 Sodium Chloride (NS Flush) 2 ml BID IV FLUSH 05/31/17 21:00 06/27/17 20:25 Aspirin (Ecotrin Ec) 81 mg HS PO 05/31/17 21:00 06/27/17 22:29 Miscellaneous (Pill Splitter) 1 ea UNSCH PRN OTHER SEE LABEL COMMENTS 05/31/17 21:00 06/12/17 09:05 Ondansetron HCl (Zofran Inj) 4 mg Q4H PRN IV PUSH NAUSEA 06/07/17 21:00 06/28/17 00:40 Pantoprazole Sodium (Protonix Inj) 40 mg Q12H IV PUSH 06/08/17 21:00 06/27/17 22:25 Fat Emulsion Intravenous 250 ml @ 10 mls/hr Q24H IV-CENTRAL 06/10/17 20:00 06/27/17 20:15 Phenol (Chloraseptic [place]) 2 spray Q2H PRN OROPHARYNG throat pain 06/11/17 12:00 06/12/17 02:47 Sodium Chloride (NS Flush) See Protocol DAILY IV FLUSH 06/12/17 09:00 06/27/17 09:49 Heparin Sodium (Porcine) (Heparin Central Flush) See Protocol DAILY IV FLUSH 06/12/17 09:00 06/27/17 09:42 Heparin Sodium (Porcine) (Heparin Central Flush) See Protocol UNSCH PRN IV FLUSH SEE PROTOCOL TABLE 06/11/17 12:30 06/23/17 06:32 Sodium Chloride (NS Flush) UNSCH PRN IV FLUSH SEE PROTOCOL TABLE 06/11/17 12:30 06/28/17 03:49 Metoclopramide HCl (Reglan Inj) 5 mg Q8HR IV PUSH 06/13/17 14:00 06/28/17 06:26 Enoxaparin Sodium (Lovenox Inj) 40 mg Q24H SQ 06/13/17 08:15 Future hold 06/27/17 09:41 Lorazepam (Ativan Inj) 0.5 mg Q6H PRN IV PUSH nausea/anxiety 06/13/17 14:45 06/24/17 16:31 Insulin Detemir (Levemir Inj) 30 units Q12HR SQ 06/18/17 09:00 06/27/17 22:19 Insulin Aspart (NovoLOG SUPPLEMENTAL SCALE) 1 ACHS SLIDING SCALE SQ 06/18/17 08:00 06/27/17 22:19 Hydromorphone HCl (Dilaudid Pf Inj) 1 mg Q2H PRN IV PUSH pain 3-10 06/19/17 09:00 06/28/17 06:29 Sodium Chloride 11 meq/Sodium Acetate 59 meq/ Potassium Chloride 120 meq/ Sodium Phosphate 40 meq/Magnesium Chloride 10 meq/ Calcium Chloride 9 meq/ Multivitamins 10 ml/Folic Acid 1 mg/Amino Acids/ Dextrose 2,124.1437 ml @ 75 mls/hr Q24H IV-CENTRAL 06/19/17 20:00 06/27/17 20:08 Docusate Sodium (Colace) 100 mg BID PO 06/21/17 21:00 06/27/17 22:29 Furosemide (Lasix Inj) 20 mg BID@09,18 IV PUSH 06/22/17 09:00 06/27/17 17:57 Cefepime HCl 2000 mg/Sodium Chloride 100 ml @ 200 mls/hr Q12H IV 06/23/17 10:00 06/27/17 22:29 Mupirocin (Bactroban 2% Oint) 1 applic Q8HR TOPICAL 06/23/17 09:00 06/28/17 06:36 Metoprolol Tartrate (Lopressor Inj) 5 mg Q4H PRN IV PUSH sustained heart rate above 120 06/24/17 12:00 06/28/17 05:53 Metoprolol Tartrate (Lopressor) 75 mg Q6HR PEG 06/24/17 12:00 06/28/17 06:33 Fluorouracil 4560 mg/Heparin Sodium (Porcine) 5750 units/Sodium Chloride 92 ml @ 2 mls/hr ONCE ONCE IV 06/26/17 15:00 06/28/17 12:59 06/26/17 16:31 Fentanyl (Duragesic 75 Mcg Patch.72 Hr) 1 patch Q3D T-DERMAL 06/26/17 13:00 06/26/17 17:32 Miscellaneous Information 1 Q3D T-DERMAL 06/26/17 13:00 06/26/17 13:00 Objective Remarks Ms. Vicente is a middle-aged female. She is sitting up in bed. she appears to be Uncomfortable, she is arousable and alert. NG tube has been removed from the left nostril. HEENT: Head atraumatic, normocephalic, conjunctivae are mildly pale, sclerae are anicteric, EOMI, PERRLA, oral exam no pharyngeal erythema. NECK: No palpable cervical or supraclavicular lymphadenopathy. RESPIRATORY: Decreased bibasilar breath sounds. Good air movement over the upper and middle lung zones. No wheezing or rhonchi. CARDIOVASCULAR: tachycardia, regular, S1-S2. No obvious murmurs, rubs or gallops. Heart rate sustained in the 120-130 bpm range. ABDOMEN: Distended abdomen, firm, tender to mild palpation, no obvious organ enlargement noted. Drainage noted at the site of gastrostomy tube insertion, erythema of the skin surrounding the gastrostomy tube insertion. LOWER EXTREMITIES: Bilateral pretibial edema, no calf tenderness. MUSCULOSKELETAL: Good muscle mass, tone and strength. 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 Assessment/Plan Assessment Ms. Vicente is a 52-year-old female with a 2.5 month history of progressive epigastric pain, nausea, vomiting and abdominal distension. She was noted on imaging studies on 06/10/2017 to have omental thickening and ascites. Omental biopsy revealed findings highly concerning for a high-grade adenocarcinoma with signet cell features. An EGD ensued and the EGD revealed an antral mass involving the gastric wall associated with ulceration and thickening. 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 Her major complaints are that of abdominal distension, pain and nausea. Plan 1. Metastatic Gastric Ca: S/p C2 FOLFOX. Stable from a clinical standpoint. 2. Gastric outlet obstruction: clamp PEG Tube to assess for gastric emptying. 3. Sinus Tachycardia on oral Beta blockers. 4. ABD distention: Likely due to peritoneal carcinomatosis, I am not certain if there is any significant amount of free fluid in the peritoneal cavity to tap. Memo Davsi MD Jun 28, 2017 08:24
[2017-06-28] MEDS: DOCUSATE SODIUM 100 MG CAP PO SCH ×2 (08:31→22:26)
[2017-06-28] MEDS: PANTOPRAZOLE SODIUM 40 MG VIAL IV PUSH SCH ×2 (08:33→22:25)
[2017-06-28] MEDS: FUROSEMIDE 20 MG/2 ML VIAL IV PUSH SCH ×2 (08:33→16:20)
[2017-06-28] MEDS: INSULIN DETEMIR 100 UNITS/ML VIAL SQ SCH ×2 (08:33→22:58)
--- NOTE | 2017-06-28 10:14 | HHI.PR ---
Subjective Remarks Pt having some increased pain at the time of the examination Objective Vitals Vital Signs Date Time Temp Pulse Resp B/P (MAP) Pulse Ox O2 Delivery O2 Flow Rate FiO2 06/28/17 08:29 99.0 93 20 123/70 (87) 93 06/28/17 06:32 119 136/84 (101) 06/28/17 06:13 117 139/90 (106) 06/28/17 06:01 116 148/86 (106) 06/28/17 05:50 133 120/88 (99) 06/28/17 04:09 119 06/28/17 03:56 99.1 120 18 127/76 (93) 92 06/28/17 01:34 113 156/80 (105) 06/28/17 01:23 114 138/86 (103) 06/28/17 01:10 128 135/95 (108) 06/28/17 00:04 118 06/27/17 23:25 99.3 127 18 126/90 (102) 92 06/27/17 20:11 118 06/27/17 19:53 99.4 118 18 108/66 (80) 93 06/27/17 17:00 98.6 124 14 137/82 (100) 92 06/27/17 13:04 98.3 116 16 141/91 (108) 92 06/27/17 11:05 92 Result Diagram: 06/28/17 0345 06/28/17 0345 Other Results Laboratory Tests Test 06/27/17 05:20 06/28/17 03:45 White Blood Count 12.8 TH/MM3 8.9 TH/MM3 Red Blood Count 3.18 MIL/MM3 3.16 MIL/MM3 Hemoglobin 9.1 GM/DL 9.1 GM/DL Hematocrit 27.9 % 27.8 % Mean Corpuscular Volume 87.5 FL 87.9 FL Mean Corpuscular Hemoglobin 28.7 PG 28.8 PG Mean Corpuscular Hemoglobin Concent 32.8 % 32.8 % Red Cell Distribution Width 15.4 % 15.6 % Platelet Count 376 TH/MM3 387 TH/MM3 Mean Platelet Volume 7.6 FL 8.1 FL Neutrophils (%) (Auto) 62.5 % Lymphocytes (%) (Auto) 12.2 % Monocytes (%) (Auto) 25.0 % Eosinophils (%) (Auto) 0.1 % Basophils (%) (Auto) 0.2 % Neutrophils # (Auto) 8.0 TH/MM3 Lymphocytes # (Auto) 1.6 TH/MM3 Monocytes # (Auto) 3.2 TH/MM3 Eosinophils # (Auto) 0.0 TH/MM3 Basophils # (Auto) 0.0 TH/MM3 CBC Comment AUTO DIFF AUTO DIFF Differential Total Cells Counted 100 100 Neutrophils % (Manual) 65 % 54 % Band Neutrophils % 11 % 21 % Lymphocytes % 10 % 15 % Monocytes % 9 % 8 % Neutrophils # (Manual) 10.4 TH/MM3 6.8 TH/MM3 Metamyelocytes 1 % Myelocytes 4 % 1 % Nucleated Red Blood Cells 1 /100 WBC 1 /100 WBC Differential Comment FINAL DIFF MANUAL FINAL DIFF MANUAL Platelet Estimate NORMAL NORMAL Platelet Morphology Comment NORMAL NORMAL Red Cell Morphology Comment NORMAL Blood Urea Nitrogen 13 MG/DL 17 MG/DL Creatinine 0.48 MG/DL 0.60 MG/DL Random Glucose 167 MG/DL 149 MG/DL Total Protein 7.0 GM/DL 7.1 GM/DL Albumin 2.0 GM/DL 2.1 GM/DL Calcium Level 8.5 MG/DL 8.2 MG/DL Alkaline Phosphatase 117 U/L 152 U/L Aspartate Amino Transf (AST/SGOT) 26 U/L 33 U/L Alanine Aminotransferase (ALT/SGPT) 17 U/L 17 U/L Total Bilirubin 0.9 MG/DL 1.0 MG/DL Sodium Level 133 MEQ/L 134 MEQ/L Potassium Level 4.6 MEQ/L 4.4 MEQ/L Chloride Level 98 MEQ/L 98 MEQ/L Carbon Dioxide Level 29.8 MEQ/L 30.6 MEQ/L Anion Gap 5 MEQ/L 5 MEQ/L Estimat Glomerular Filtration Rate 136 ML/MIN 105 ML/MIN Eosinophils % 1 % Magnesium Level 2.0 MG/DL Imaging Last Impressions Gastrostomy Tube Placement 06/16/17 0000 Signed Impressions: Service Date/Time: Friday, June 16, 2017 15:58 - CONCLUSION: Uncomplicated gastrostomy tube placement as above. Carl Lamar Jr., MD Chest X-Ray 06/14/17 0000 Signed Impressions: Service Date/Time: Wednesday, June 14, 2017 17:04 - CONCLUSION: Stable chest x-ray with a small to moderate size left pleural effusion with associated volume loss and/or consolidation. Chilango Shaw MD Abdomen X-Ray 06/14/17 0000 Signed Impressions: Service Date/Time: Wednesday, June 14, 2017 13:22 - CONCLUSION: 1. Nasogastric tube distal tip in the gastric body. 2. Stable small to moderate size left pleural effusion. Chilango Shaw MD Abdomen Ultrasound 06/14/17 0000 Signed Impressions: Service Date/Time: Wednesday, June 14, 2017 09:29 - CONCLUSION: Small volume of free fluid is present within the abdomen or pelvis. Chilango Shaw MD Lower Extremity Ultrasound 06/12/17 0000 Signed Impressions: Service Date/Time: Monday, June 12, 2017 14:04 - CONCLUSION: Normal examination. Ron Kim MD Abdomen/Pelvis CT 06/09/17 0000 Signed Impressions: Service Date/Time: Friday, June 09, 2017 12:50 - CONCLUSION: 1. Diffuse abdominal ascites. With omental thickening. Ascites could either be from cirrhotic changes or peritoneal carcinomatosis. 2. No findings to indicate bowel obstruction. 3. Small bilateral effusions with dependent atelectasis. Xavier Kellogg MD Paracentesis 06/04/17 0000 Signed Impressions: Service Date/Time: Sunday, June 04, 2017 14:57 - CONCLUSION: Uncomplicated CT Guided paracentesis with removal of 3.6 L of fluid. Sample was saved and sent to the lab for evaluation. Chilango Shaw MD Abdomen Biopsy CT 06/04/17 0000 Signed Impressions: Service Date/Time: Sunday, June 04, 2017 14:57 - CONCLUSION: Uncomplicated CT guided biopsy of the omentum. Chilango Shaw MD Liver Ultrasound 06/02/17 0000 Signed Impressions: Service Date/Time: Friday, June 02, 2017 23:21 - CONCLUSION: 1. Cirrhosis 2. Possible mass right lobe of the liver. MRI is recommended for further evaluation if clinically indicated. 3. Moderate ascites Mert Paige MD Cyst Biopsy Asp-Paracentesis US 05/31/17 0000 Signed Impressions: Service Date/Time: Wednesday, May 31, 2017 16:43 - CONCLUSION: Uncomplicated ultrasound guided paracentesis. Minimal fluid aspirated. 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 - Pt presented to the ED with complaints of worsening abdominal pain and distension. She states that she has been having issues with abd pain for the last 2 months. For the last 2 weeks she has been having increased generalized abd pain and distension which has been significantly worse over the last 2 days. - CT Abd/pelvis revealed ascites appears complex and new from 03/23/17. - She was previously seen in the ED on 03/[address] abd/pelvis at that time noted an 18mm lesion in the right lobe of the liver, with features favoring hemangioma. She was sent for followup as an outpt with GI. She had an MRI Abdomen W/O Contrast (05/13/17) with benign hemangioma in the caudate lobe of the liver corresponding to the lesion identified on CT otherwise normal examination. - Outpt workup with GI in April 2017 revealed positive ASMA, positive RACHELE, and RODRIGUEZ FibroSURE with fibrosis score of 0.04 (No fibrosis), Steatosis score of 0.78/S3 (marked or severe steatosis). Viral Hepatitis was negative. IgG subclasses were WNL, LKM Ab negative, AMA negative, Iron studies WNL, Ferritin 160 (slightly elevated), Ceruloplasmin WNL. Labs on 05/12/17 with AST 54, ALT 81, AlkPhos 92, Tbili 0.8 , DBili 0.2. autoimmune hepatitis was questioned. - Pt had diagnostic paracentesis on 05/31 with removal of 15cc of fluid - Cell count for the fluid noted WBC count 1657 - Fluid culture with no growth - cytology --> atypical epithelioid cells suspicious for malignancy - Repeat paracentesis 06/04/17 - 3,600ml of ascites removed - Ascitic Cell count: WBC 494, RBC 6525 - Fluid culture shows ngtd - cytology -->suspicious for malignant cells - Pt underwent Omental Biopsy (06/04/17) --> path suspicious for signet cell adenoca - EGD 06/11 --> antral ulcerated mass with near obstruction of outlet. 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 - Heme-Onc, Dr. Davis, is following. - She was started on palliative systemic therapy with FOLFOX to help debulk her tumor to relieve some of her gastric symptoms of obstruction - She received cycle 1 day 1 was 06/12/2017. - Pt started cycle 2 on 06/26 - NGT placed for decompression for malignant bowel obstruction - General Surgery was consulted but its felt that currently the pt will not benefit from J tube and she will be unable to undergo enteral nutrition. - IR placed G tube on 06/16. removed NGT on 06/17 - PICC line placed 06/11 and pt is on TPN - G tube to gravity. - Pt NOT able to tolerate PO intake. - Pt is TPN dependent for nutritional support - Pt's blood sugar are now stable with NO basal insulin added to TPN; BID Levemir; SSI - On 06/23, G-tube site appeared infected but this has been improving. - Wound Culture (06/23) --> anaerobic gram negative rods, requested further analysis with speciation and sensitivity, final ID will take an additional 48 hrs from - IV Cefepime and topical Bactroban. - Pt's pain being addressed with Fentanyl transdermal and prn IV Dilaudid - Fentanyl increased to 75mcg on 06/26 with initial better pain control, will need to continue to work on pain control at this time. - Cont. IV Dilaudid PRN - Daily PT - DNR - DVT prophylaxis with Lovenox - Tentatively pt's is planned for transfer to [facility] when medically optimized - Pt will require continued mgmt of TPN and G-tube (2) Sinus tachycardia ICD Codes: R00.0 - Tachycardia, unspecified Status: Acute Plan: - Pt developed sinus tachycardia with rates into the 140's, felt to likely be secondary to physiological response related to her malignant/obstructive process and stopping her chronic bb. - Pt receiving PO Lopressor 75mg q6h with G-tube suction held for 30min - HR still generally in the 110-120's and upwards of 140s - Stop oral metoprolol as its not clear that this is being absorbed - We will continue on Metoprolol 5mg IV Q4H and hold for HR less than 60 - Monitor (3) Abdominal pain ICD Codes: R10.9 - Unspecified abdominal pain Status: Acute Plan: - See above. (4) Ascites ICD Codes: R18.8 - Other ascites Status: Acute Plan: - See above - Pts last paracentesis was on 06/04 with removal of 3600cc of ascetic fluid - continue IV Lasix - At this time pt does have some ascites that could be drained but she wants to hold off on repeat paracentesis as the last one was very painful per the pt - Will readdress in the next 1-2 days. (5) Hypertension ICD Codes: I10 - Essential (primary) hypertension Status: Chronic Plan: - See above (6) Hyperlipidemia ICD Codes: E78.5 - Hyperlipidemia, unspecified Status: Chronic Plan: - Statin was held as an outpt (7) CAD (coronary artery disease) ICD Codes: I25.10 - Atherosclerotic heart disease of [place] coronary artery without angina pectoris Status: Chronic Plan: - Pt with hx of CAD and NSTEMI in 2010 s/p stent in the RCA (8) Tobacco abuse ICD Codes: Z72.0 - Tobacco use Status: Chronic Assessment and Plan Patient examined. Assessment and plan formulated with Rosemary Fong PA-C. I agree with the above. Pt continues to have difficulty with pain control. Pt's fentanyl transdermal was increased yesterday. anticipate discharge to [facility] in next 1-2 days. Problem Qualifiers (1) Abdominal pain: Qualified Codes: R10.84 - Generalized abdominal pain (2) Ascites: Qualified Codes: R18.8 - Other ascites (3) Hypertension: Qualified Codes: I10 - Essential (primary) hypertension Rosemary Fong Jun 28, 2017 10:14 Xu Hoover DO Jun 28, 2017 13:52
[2017-06-28] MEDS: CEFEPIME INJ 2,000 MG in SODIUM CHLORIDE 0.9% INJ 100 ML IV SCH ×2 (10:45→23:04)
[2017-06-28] MEDS: METOPROLOL TARTRATE 5 MG/5 ML VIAL IV PUSH SCH ×3 (10:50→20:20)
[2017-06-28] MEDS: ENOXAPARIN SODIUM 40 MG/0.4 ML SYRINGE SQ SCH (10:50)
[2017-06-28] MEDS: SODIUM CHLORIDE 0.9% FLUSH 10 ML FLUSH IV FLUSH SCH ×3 (11:22→22:25)
[2017-06-28] MEDS: FAT EMULSION 20% INJ 250 ML (@10 mls/hr) IV-CENTRAL SCH (20:24)
[2017-06-28] MEDS: SODIUM CHLORIDE IV-CENTRAL SCH ×9 (20:25)
[2017-06-28] MEDS: [UNRECOGNIZED DRUG - OTHER] IV-CENTRAL SCH ×9 (20:25)
[2017-06-28] MEDS: SODIUM ACETATE IV-CENTRAL SCH ×9 (20:25)
[2017-06-28] MEDS: ASPIRIN EC 81 MG TABEC PO SCH (22:25)
[2017-06-29] VITALS (16 sets, daily range): BP systolic 114–156; BP diastolic 71–89; PULSE 112–143; RESP 16–20; TEMP 98.1–99; O2SAT 93–97
[2017-06-29] MEDS: METOPROLOL TARTRATE 5 MG/5 ML VIAL IV PUSH SCH ×6 (00:04→19:51)
[2017-06-29] MEDS: MUPIROCIN 2% OINT 22 GM TUBE TOPICAL SCH ×3 (06:00→21:54)
[2017-06-29] MEDS: METOCLOPRAMIDE HCL 10 MG/2 ML VIAL IV PUSH SCH (06:28)
[2017-06-29] MEDS: HYDROmorphone HCL PF 1 MG/ML VIAL IV PUSH PRN ×3 (07:25→13:10)
[2017-06-29] MEDS: ENOXAPARIN SODIUM 40 MG/0.4 ML SYRINGE SQ SCH (08:15)
[2017-06-29] MEDS: INSULIN DETEMIR 100 UNITS/ML VIAL SQ SCH ×2 (08:36→22:00)
[2017-06-29] MEDS: INSULIN ASPART SUPPLEMENTAL SCALE SQ SCH ×4 (08:36→22:01)
[2017-06-29] MEDS: CEFEPIME INJ 2,000 MG in SODIUM CHLORIDE 0.9% INJ 100 ML IV SCH (08:36)
[2017-06-29] MEDS: PANTOPRAZOLE SODIUM 40 MG VIAL IV PUSH SCH ×2 (08:37→21:53)
[2017-06-29] MEDS: FUROSEMIDE 20 MG/2 ML VIAL IV PUSH SCH ×2 (08:37→17:28)
[2017-06-29] MEDS: DOCUSATE SODIUM 100 MG CAP PO SCH ×2 (08:37→21:00)
[2017-06-29] MEDS: SODIUM CHLORIDE 0.9% FLUSH 10 ML FLUSH IV FLUSH SCH ×3 (08:38→21:54)
--- NOTE | 2017-06-29 09:33 | HHI.PR ---
Subjective Remarks Pt still having difficulties with pain control. Pt is requiring frequent IV dilaudid. Pt does NOT want paracentesis. Pt continues to have difficulties with tachycardia despite scheduled IV metoprolol. Pt denies chest pain or palpitations. Objective Vitals Vital Signs Date Time Temp Pulse Resp B/P (MAP) Pulse Ox O2 Delivery O2 Flow Rate FiO2 06/29/17 07:55 20 06/29/17 04:50 122 144/84 (104) 06/29/17 04:35 112 06/29/17 04:27 129 137/80 (99) 94 06/29/17 04:18 98.4 143 20 156/89 (111) 93 06/29/17 00:34 118 06/29/17 00:24 112 130/74 (92) 06/29/17 00:09 122 131/78 (95) 06/29/17 00:00 98.6 130 18 138/80 (99) 96 06/28/17 23:52 135 06/28/17 20:50 115 129/81 (97) 06/28/17 20:35 117 132/76 (94) 93 06/28/17 20:18 98.7 134 18 139/80 (99) 96 06/28/17 20:06 129 06/28/17 19:30 99.0 128 20 129/73 (91) 95 06/28/17 17:34 93 21 06/28/17 11:41 93 21 06/28/17 11:13 98.8 119 20 129/78 (95) 94 Result Diagram: 06/28/17 0345 06/28/17 0345 Imaging Last Impressions Gastrostomy Tube Placement 06/16/17 0000 Signed Impressions: Service Date/Time: Friday, June 16, 2017 15:58 - CONCLUSION: Uncomplicated gastrostomy tube placement as above. Carl Lamar Jr., MD Chest X-Ray 06/14/17 0000 Signed Impressions: Service Date/Time: Wednesday, June 14, 2017 17:04 - CONCLUSION: Stable chest x-ray with a small to moderate size left pleural effusion with associated volume loss and/or consolidation. Chilango Shaw MD Abdomen X-Ray 06/14/17 0000 Signed Impressions: Service Date/Time: Wednesday, June 14, 2017 13:22 - CONCLUSION: 1. Nasogastric tube distal tip in the gastric body. 2. Stable small to moderate size left pleural effusion. Chilango Shaw MD Abdomen Ultrasound 06/14/17 0000 Signed Impressions: Service Date/Time: Wednesday, June 14, 2017 09:29 - CONCLUSION: Small volume of free fluid is present within the abdomen or pelvis. Chilango Shaw MD Lower Extremity Ultrasound 06/12/17 0000 Signed Impressions: Service Date/Time: Monday, June 12, 2017 14:04 - CONCLUSION: Normal examination. Ron Kim MD Abdomen/Pelvis CT 06/09/17 0000 Signed Impressions: Service Date/Time: Friday, June 09, 2017 12:50 - CONCLUSION: 1. Diffuse abdominal ascites. With omental thickening. Ascites could either be from cirrhotic changes or peritoneal carcinomatosis. 2. No findings to indicate bowel obstruction. 3. Small bilateral effusions with dependent atelectasis. Xavier Kellogg MD Paracentesis 06/04/17 0000 Signed Impressions: Service Date/Time: Sunday, June 04, 2017 14:57 - CONCLUSION: Uncomplicated CT Guided paracentesis with removal of 3.6 L of fluid. Sample was saved and sent to the lab for evaluation. Chilango Shaw MD Abdomen Biopsy CT 06/04/17 0000 Signed Impressions: Service Date/Time: Sunday, June 04, 2017 14:57 - CONCLUSION: Uncomplicated CT guided biopsy of the omentum. Chilango Shaw MD Liver Ultrasound 06/02/17 0000 Signed Impressions: Service Date/Time: Friday, June 02, 2017 23:21 - CONCLUSION: 1. Cirrhosis 2. Possible mass right lobe of the liver. MRI is recommended for further evaluation if clinically indicated. 3. Moderate ascites Mert Paige MD Cyst Biopsy Asp-Paracentesis US 05/31/17 0000 Signed Impressions: Service Date/Time: Wednesday, May 31, 2017 16:43 - CONCLUSION: Uncomplicated ultrasound guided paracentesis. Minimal fluid aspirated. 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 - Pt presented to the ED with complaints of worsening abdominal pain and distension. She states that she has been having issues with abd pain for the last 2 months. For the last 2 weeks she has been having increased generalized abd pain and distension which has been significantly worse over the last 2 days. - CT Abd/pelvis revealed ascites appears complex and new from 03/23/17. - She was previously seen in the ED on 03/[address] abd/pelvis at that time noted an 18mm lesion in the right lobe of the liver, with features favoring hemangioma. She was sent for followup as an outpt with GI. She had an MRI Abdomen W/O Contrast (05/13/17) with benign hemangioma in the caudate lobe of the liver corresponding to the lesion identified on CT otherwise normal examination. - Outpt workup with GI in April 2017 revealed positive ASMA, positive RACHELE, and RODRIGUEZ FibroSURE with fibrosis score of 0.04 (No fibrosis), Steatosis score of 0.78/S3 (marked or severe steatosis). Viral Hepatitis was negative. IgG subclasses were WNL, LKM Ab negative, AMA negative, Iron studies WNL, Ferritin 160 (slightly elevated), Ceruloplasmin WNL. Labs on 05/12/17 with AST 54, ALT 81, AlkPhos 92, Tbili 0.8 , DBili 0.2. autoimmune hepatitis was questioned. - Pt had diagnostic paracentesis on 05/31 with removal of 15cc of fluid - Cell count for the fluid noted WBC count 1657 - Fluid culture with no growth - cytology --> atypical epithelioid cells suspicious for malignancy - Repeat paracentesis 06/04/17 - 3,600ml of ascites removed - Ascitic Cell count: WBC 494, RBC 6525 - Fluid culture shows ngtd - cytology -->suspicious for malignant cells - Pt underwent Omental Biopsy (06/04/17) --> path suspicious for signet cell adenoca - EGD 06/11 --> antral ulcerated mass with near obstruction of outlet. 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 - Heme-Onc, Dr. Davis, is following. - She was started on palliative systemic therapy with FOLFOX to help debulk her tumor to relieve some of her gastric symptoms of obstruction - She received cycle 1 day 1 was 06/12/2017. - Pt started cycle 2 on 06/26 - IR placed G tube on 06/16. removed NGT on 06/17 - PICC line placed 06/11 and pt is on TPN - G tube to gravity, G tube dependent - Pt NOT able to tolerate PO intake. - Pt is TPN dependent for nutritional support - Pt's blood sugar are now stable with NO basal insulin added to TPN; BID Levemir; SSI - On 06/23, G-tube site appeared infected but this has been improving. - Wound Culture (06/23) --> mixed anaerobs - IV Cefepime (06/23 - 06/29) and topical Bactroban. - Pt's pain being addressed with Fentanyl transdermal and prn IV Dilaudid - Increase fentanyl to 100mcg q3d (06/29) - Cont. IV Dilaudid PRN - Daily PT - DNR - DVT prophylaxis with Lovenox (2) Sinus tachycardia ICD Codes: R00.0 - Tachycardia, unspecified Status: Acute Plan: - Pt developed sinus tachycardia with rates into the 140's, felt to likely be secondary to physiological response related to her malignant/obstructive process and stopping her chronic bb. - IV metoprolol (3) Abdominal pain ICD Codes: R10.9 - Unspecified abdominal pain Status: Acute Plan: - See above. (4) Ascites ICD Codes: R18.8 - Other ascites Status: Acute Plan: - See above - Pts last paracentesis was on 06/04 with removal of 3600cc of ascetic fluid - continue IV Lasix - At this time pt does have some ascites that could be drained but she wants to hold off on repeat paracentesis as the last one was very painful per the pt - Will readdress in the next 1-2 days. (5) Hypertension ICD Codes: I10 - Essential (primary) hypertension Status: Chronic Plan: - See above (6) Hyperlipidemia ICD Codes: E78.5 - Hyperlipidemia, unspecified Status: Chronic Plan: - Statin was held as an outpt (7) CAD (coronary artery disease) ICD Codes: I25.10 - Atherosclerotic heart disease of [place] coronary artery without angina pectoris Status: Chronic Plan: - Pt with hx of CAD and NSTEMI in 2011 s/p stent in the RCA (8) Tobacco abuse ICD Codes: Z72.0 - Tobacco use Status: Chronic Problem Qualifiers (1) Abdominal pain: Qualified Codes: R10.84 - Generalized abdominal pain (2) Ascites: Qualified Codes: R18.8 - Other ascites (3) Hypertension: Qualified Codes: I10 - Essential (primary) hypertension Xu Hoover DO Jun 29, 2017 09:33
[2017-06-29] MEDS ORDERED: fentaNYL 100 MCG/HR PATCH T-DERMAL SCH (11:00)
[2017-06-29] MEDS: LORazepam 2 MG/ML VIAL IV PUSH PRN (14:33)
[2017-06-29] MEDS: SODIUM ACETATE IV-CENTRAL SCH ×9 (20:00)
[2017-06-29] MEDS: FAT EMULSION 20% INJ 250 ML (@10 mls/hr) IV-CENTRAL SCH (20:00)
[2017-06-29] MEDS: [UNRECOGNIZED DRUG - OTHER] IV-CENTRAL SCH ×9 (20:00)
[2017-06-29] MEDS: SODIUM CHLORIDE IV-CENTRAL SCH ×9 (20:00)
[2017-06-29] MEDS: ASPIRIN EC 81 MG TABEC PO SCH (21:53)
[2017-06-30] VITALS (13 sets, daily range): BP systolic 101–158; BP diastolic 69–89; PULSE 111–143; RESP 16–20; TEMP 97.3–98.9; O2SAT 95–96
[2017-06-30] MEDS: METOPROLOL TARTRATE 5 MG/5 ML VIAL IV PUSH SCH ×6 (00:13→21:13)
[2017-06-30] MEDS: LORazepam 2 MG/ML VIAL IV PUSH PRN (00:38)
[2017-06-30] MEDS: MUPIROCIN 2% OINT 22 GM TUBE TOPICAL SCH ×3 (05:34→21:15)
--- NOTE | 2017-06-30 08:04 | PD.ONC.PN ---
Subjective Subjective Remarks Patient seen and examined, vital signs, medications and labs reviewed. Patient is sitting up in bed with breakfast tray in front for, she tells me she' s had a few bites of grits and about half a bottle thin sure this morning. She reports her pain is improved and she has been having soft/watery bowel movements over the course of last night. Objective Data Date Time Temp Pulse Resp B/P (MAP) Pulse Ox O2 Delivery O2 Flow Rate FiO2 06/30/17 05:30 120 115/76 (89) 06/30/17 04:41 117 114/71 (85) 06/30/17 04:24 98.2 130 20 140/87 (104) 95 06/30/17 04:00 118 06/30/17 00:36 125 124/77 (93) 06/30/17 00:31 129 06/30/17 00:20 130 136/82 (100) 06/30/17 00:11 98.9 143 158/89 (112) 95 06/29/17 22:00 97 Nasal Cannula 2.00 06/29/17 21:00 116 114/71 (85) 06/29/17 20:22 116 06/29/17 20:00 114 123/73 (90) 06/29/17 19:46 99.0 127 18 128/73 (91) 96 06/29/17 16:00 98.6 118 16 125/81 (96) 95 06/29/17 16:00 118 06/29/17 13:44 20 06/29/17 13:09 20 06/29/17 12:00 128 06/29/17 12:00 98.2 128 16 130/75 (93) 96 06/30/17 06/30/17 06/30/17 07:00 15:00 23:00 Intake Total 1840 ml Output Total 1350 ml Balance 490 ml Result Diagram: 06/28/17 0345 06/28/17 0345 Administered Medications Medications (Trade) Dose Ordered Sig/Nelda Route PRN Reason Start Time Stop Time Status Last Admin Dose Admin Sodium Chloride (NS Flush) 2 ml UNSCH PRN IV FLUSH FLUSH AFTER USING IV ACCESS 05/31/17 16:00 06/28/17 03:49 Sodium Chloride (NS Flush) 2 ml BID IV FLUSH 05/31/17 21:00 06/29/17 21:54 Aspirin (Ecotrin Ec) 81 mg HS PO 05/31/17 21:00 06/29/17 21:53 Miscellaneous (Pill Splitter) 1 ea UNSCH PRN OTHER SEE LABEL COMMENTS 05/31/17 21:00 06/12/17 09:05 Ondansetron HCl (Zofran Inj) 4 mg Q4H PRN IV PUSH NAUSEA 06/07/17 21:00 06/28/17 18:26 Pantoprazole Sodium (Protonix Inj) 40 mg Q12H IV PUSH 06/08/17 21:00 06/29/17 21:53 Fat Emulsion Intravenous 250 ml @ 10 mls/hr Q24H IV-CENTRAL 06/10/17 20:00 06/29/17 20:00 Phenol (Chloraseptic Diana) 2 spray Q2H PRN OROPHARYNG throat pain 06/11/17 12:00 06/12/17 02:47 Sodium Chloride (NS Flush) See Protocol DAILY IV FLUSH 06/12/17 09:00 06/29/17 08:38 Heparin Sodium (Porcine) (Heparin Central Flush) See Protocol DAILY IV FLUSH 06/12/17 09:00 06/29/17 08:37 Heparin Sodium (Porcine) (Heparin Central Flush) See Protocol UNSCH PRN IV FLUSH SEE PROTOCOL TABLE 06/11/17 12:30 06/30/17 06:44 Sodium Chloride (NS Flush) UNSCH PRN IV FLUSH SEE PROTOCOL TABLE 06/11/17 12:30 06/30/17 06:44 Enoxaparin Sodium (Lovenox Inj) 40 mg Q24H SQ 06/13/17 08:15 Future hold 06/29/17 08:15 Lorazepam (Ativan Inj) 0.5 mg Q6H PRN IV PUSH nausea/anxiety 06/13/17 14:45 06/30/17 00:38 Insulin Detemir (Levemir Inj) 30 units Q12HR SQ 06/18/17 09:00 06/29/17 22:00 Insulin Aspart (NovoLOG SUPPLEMENTAL SCALE) 1 ACHS SLIDING SCALE SQ 06/18/17 08:00 06/29/17 22:01 Hydromorphone HCl (Dilaudid Pf Inj) 1 mg Q2H PRN IV PUSH pain 3-10 06/19/17 09:00 06/29/17 13:10 Sodium Chloride 11 meq/Sodium Acetate 59 meq/ Potassium Chloride 120 meq/ Sodium Phosphate 40 meq/Magnesium Chloride 10 meq/ Calcium Chloride 9 meq/ Multivitamins 10 ml/Folic Acid 1 mg/Amino Acids/ Dextrose 2,124.1437 ml @ 75 mls/hr Q24H IV-CENTRAL 06/19/17 20:00 06/29/17 20:00 Docusate Sodium (Colace) 100 mg BID PO 06/21/17 21:00 06/29/17 08:37 Furosemide (Lasix Inj) 20 mg BID@09,18 IV PUSH 06/22/17 09:00 06/29/17 17:28 Mupirocin (Bactroban 2% Oint) 1 applic Q8HR TOPICAL 06/23/17 09:00 06/30/17 05:34 Metoprolol Tartrate (Lopressor Inj) 5 mg Q4H IV PUSH 06/28/17 12:00 06/30/17 04:25 Fentanyl (Duragesic 100 Mcg Patch.72 Hr) 1 patch Q3D T-DERMAL 06/29/17 11:00 06/29/17 11:41 Objective Remarks Ms. Vicente is a middle-aged female. She is sitting up in bed. she appears to be Uncomfortable, she is arousable and alert. NG tube has been removed from the left nostril. HEENT: Head atraumatic, normocephalic, conjunctivae are mildly pale, sclerae are anicteric, EOMI, PERRLA, oral exam no pharyngeal erythema. NECK: No palpable cervical or supraclavicular lymphadenopathy. RESPIRATORY: Decreased bibasilar breath sounds. Good air movement over the upper and middle lung zones. No wheezing or rhonchi. CARDIOVASCULAR: tachycardia, regular, S1-S2. No obvious murmurs, rubs or gallops. Heart rate sustained in the 120-130 bpm range. ABDOMEN: Distended abdomen, firm, tender to mild palpation, no obvious organ enlargement noted. Drainage noted at the site of gastrostomy tube insertion, erythema of the skin surrounding the gastrostomy tube insertion. LOWER EXTREMITIES: Bilateral pretibial edema, no calf tenderness. MUSCULOSKELETAL: Good muscle mass, tone and strength. LOG HOOKER: No focal sensory motor deficits. Assessment/Plan Assessment Ms. Vicente is a 52-year-old female with a 2.5 month history of progressive epigastric pain, nausea, vomiting and abdominal distension. She was noted on imaging studies on 06/10/2017 to have omental thickening and ascites. Omental biopsy revealed findings highly concerning for a high-grade adenocarcinoma with signet cell features. An EGD ensued and the EGD revealed an antral mass involving the gastric wall associated with ulceration and thickening. 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 Her major complaints are that of abdominal distension, pain and nausea. Plan 1. Metastatic Gastric Ca: S/p C2 FOLFOX. Stable from a clinical standpoint. 2. Gastric outlet obstruction: clamp PEG Tube to assess for gastric emptying. Encourage by mouth intake. 3. Sinus Tachycardia on oral Beta blockers. 4. ABD distention: Likely due to peritoneal carcinomatosis. Disposition: Continue supportive care. Encourage by mouth intake. Clamp PEG tube to assess for gastric emptying. Pain control and anxiety management. Memo Davis MD Jun 30, 2017 08:04
[2017-06-30] MEDS: DOCUSATE SODIUM 100 MG CAP PO SCH ×2 (08:49→21:00)
[2017-06-30] MEDS: LORazepam 2 MG/ML VIAL IV SCH ×4 (09:00→18:42)
[2017-06-30] MEDS: PANTOPRAZOLE SODIUM 40 MG VIAL IV PUSH SCH ×2 (09:10→21:13)
[2017-06-30] MEDS: HYDROmorphone HCL PF 1 MG/ML VIAL IV PUSH PRN (09:10)
[2017-06-30] MEDS: ONDANSETRON HCL 4 MG/2 ML VIAL IV PUSH PRN ×2 (09:16→15:45)
[2017-06-30] MEDS: FUROSEMIDE 20 MG/2 ML VIAL IV PUSH SCH ×2 (09:17→18:42)
[2017-06-30] MEDS: INSULIN DETEMIR 100 UNITS/ML VIAL SQ SCH ×2 (09:18→21:13)
[2017-06-30] MEDS: ENOXAPARIN SODIUM 40 MG/0.4 ML SYRINGE SQ SCH (09:18)
[2017-06-30] MEDS: INSULIN ASPART SUPPLEMENTAL SCALE SQ SCH ×4 (09:18→21:00)
[2017-06-30] MEDS: SODIUM CHLORIDE 0.9% FLUSH 10 ML FLUSH IV FLUSH SCH ×3 (09:32→21:24)
--- NOTE | 2017-06-30 20:17 | HHI.PR ---
Subjective Remarks Overall, pt more comfortable today. Less painful with increased dose of duragesic. Pt required only one dose of IV duragesic today. Pt less anxious with scheduled IV ativan. Dr. Davis ordered G-tube clamped for 3 hours after meals. Pt had 2 episodes of vomiting today, but Ms. Vicente attributes this to eating too much. Objective Vitals Vital Signs Date Time Temp Pulse Resp B/P (MAP) Pulse Ox O2 Delivery O2 Flow Rate FiO2 06/30/17 15:55 98.2 126 20 101/74 (83) 95 06/30/17 12:16 98.5 121 20 118/69 (85) 96 06/30/17 09:37 97.3 111 20 137/80 (99) 95 06/30/17 08:00 117 06/30/17 05:30 120 115/76 (89) 06/30/17 04:41 117 114/71 (85) 06/30/17 04:24 98.2 130 20 140/87 (104) 95 06/30/17 04:00 118 06/30/17 00:36 125 124/77 (93) 06/30/17 00:31 129 06/30/17 00:20 130 136/82 (100) 06/30/17 00:11 98.9 143 158/89 (112) 95 06/29/17 22:00 97 Nasal Cannula 2.00 06/29/17 21:00 116 114/71 (85) 06/29/17 20:22 116 06/30/17 06/30/17 07/01/17 15:00 23:00 07:00 Intake Total 1378 ml Output Total 200 ml 1450 ml Balance -200 ml -72 ml Intake Oral 480 ml IV Total 898 ml Output Urine Total 150 ml 850 ml Stool Total 50 ml Gastric Drainage Total 600 ml # Bowel Movements 1 Result Diagram: 06/28/17 0345 06/28/17 0345 Imaging Last Impressions Gastrostomy Tube Placement 06/16/17 0000 Signed Impressions: Service Date/Time: Friday, June 16, 2017 15:58 - CONCLUSION: Uncomplicated gastrostomy tube placement as above. Carl Lamar Jr., MD Chest X-Ray 06/14/17 0000 Signed Impressions: Service Date/Time: Wednesday, June 14, 2017 17:04 - CONCLUSION: Stable chest x-ray with a small to moderate size left pleural effusion with associated volume loss and/or consolidation. Chilango Shaw MD Abdomen X-Ray 06/14/17 0000 Signed Impressions: Service Date/Time: Wednesday, June 14, 2017 13:22 - CONCLUSION: 1. Nasogastric tube distal tip in the gastric body. 2. Stable small to moderate size left pleural effusion. Chilango Shaw MD Abdomen Ultrasound 06/14/17 0000 Signed Impressions: Service Date/Time: Wednesday, June 14, 2017 09:29 - CONCLUSION: Small volume of free fluid is present within the abdomen or pelvis. Chilango Shaw MD Lower Extremity Ultrasound 06/12/17 0000 Signed Impressions: Service Date/Time: Monday, June 12, 2017 14:04 - CONCLUSION: Normal examination. Ron Kim MD Abdomen/Pelvis CT 06/09/17 0000 Signed Impressions: Service Date/Time: Friday, June 09, 2017 12:50 - CONCLUSION: 1. Diffuse abdominal ascites. With omental thickening. Ascites could either be from cirrhotic changes or peritoneal carcinomatosis. 2. No findings to indicate bowel obstruction. 3. Small bilateral effusions with dependent atelectasis. Xavier Kellogg MD Paracentesis 06/04/17 0000 Signed Impressions: Service Date/Time: Sunday, June 04, 2017 14:57 - CONCLUSION: Uncomplicated CT Guided paracentesis with removal of 3.6 L of fluid. Sample was saved and sent to the lab for evaluation. Chilango Shaw MD Abdomen Biopsy CT 06/04/17 0000 Signed Impressions: Service Date/Time: Sunday, June 04, 2017 14:57 - CONCLUSION: Uncomplicated CT guided biopsy of the omentum. Chilango Shaw MD Liver Ultrasound 06/02/17 0000 Signed Impressions: Service Date/Time: Friday, June 02, 2017 23:21 - CONCLUSION: 1. Cirrhosis 2. Possible mass right lobe of the liver. MRI is recommended for further evaluation if clinically indicated. 3. Moderate ascites Mert Paige MD Cyst Biopsy Asp-Paracentesis US 05/31/17 0000 Signed Impressions: Service Date/Time: Wednesday, May 31, 2017 16:43 - CONCLUSION: Uncomplicated ultrasound guided paracentesis. Minimal fluid aspirated. 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 - Pt presented to the ED with complaints of worsening abdominal pain and distension. She states that she has been having issues with abd pain for the last 2 months. For the last 2 weeks she has been having increased generalized abd pain and distension which has been significantly worse over the last 2 days. - CT Abd/pelvis revealed ascites appears complex and new from 03/23/17. - She was previously seen in the ED on 03/[address] abd/pelvis at that time noted an 18mm lesion in the right lobe of the liver, with features favoring hemangioma. She was sent for followup as an outpt with GI. She had an MRI Abdomen W/O Contrast (05/13/17) with benign hemangioma in the caudate lobe of the liver corresponding to the lesion identified on CT otherwise normal examination. - Outpt workup with GI in April 2017 revealed positive ASMA, positive RACHELE, and RODRIGUEZ FibroSURE with fibrosis score of 0.04 (No fibrosis), Steatosis score of 0.78/S3 (marked or severe steatosis). Viral Hepatitis was negative. IgG subclasses were WNL, LKM Ab negative, AMA negative, Iron studies WNL, Ferritin 160 (slightly elevated), Ceruloplasmin WNL. Labs on 05/12/17 with AST 54, ALT 81, AlkPhos 92, Tbili 0.8 , DBili 0.2. autoimmune hepatitis was questioned. - Pt had diagnostic paracentesis on 05/31 with removal of 15cc of fluid - Cell count for the fluid noted WBC count 1657 - Fluid culture with no growth - cytology --> atypical epithelioid cells suspicious for malignancy - Repeat paracentesis 06/04/17 - 3,600ml of ascites removed - Ascitic Cell count: WBC 494, RBC 6525 - Fluid culture shows ngtd - cytology -->suspicious for malignant cells - Pt underwent Omental Biopsy (06/04/17) --> path suspicious for signet cell adenoca - EGD 06/11 --> antral ulcerated mass with near obstruction of outlet. 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 - Heme-Onc, Dr. Davis, is following. - She was started on palliative systemic therapy with FOLFOX to help debulk her tumor to relieve some of her gastric symptoms of obstruction - She received cycle 1 day 1 was 06/12/2017. - Pt started cycle 2 on 06/26 - IR placed G tube on 06/16. removed NGT on 06/17 - PICC line placed 06/11 and pt is on TPN - G tube to gravity, G tube dependent - Pt NOT able to tolerate PO intake. - Pt is TPN dependent for nutritional support - Pt's blood sugar are now stable with NO basal insulin added to TPN; BID Levemir; SSI - On 06/23, G-tube site appeared infected but this has been improving. - Wound Culture (06/23) --> mixed anaerobs - IV Cefepime (06/23 - 06/29) and topical Bactroban. - Pt's pain being addressed with Fentanyl transdermal and prn IV Dilaudid - Increase fentanyl to 100mcg q3d (06/29) - scheduled and prn ativan for anxiety - G-tube clamped for 3 hours following meals - reglan stopped 06/29 - will start Cymbalta 06/30 - Daily PT - DNR - DVT prophylaxis with Lovenox (2) Sinus tachycardia ICD Codes: R00.0 - Tachycardia, unspecified Status: Acute Plan: - Pt developed sinus tachycardia with rates into the 140's, felt to likely be secondary to physiological response related to her malignant/obstructive process and stopping her chronic bb. - Pt receiving IV metoprolol q4h - telemetry: sinus tachycardia in the 120s (3) Abdominal pain ICD Codes: R10.9 - Unspecified abdominal pain Status: Acute Plan: - See above. (4) Ascites ICD Codes: R18.8 - Other ascites Status: Acute Plan: - See above - Pts last paracentesis was on 06/04 with removal of 3600cc of ascetic fluid - continue IV Lasix (5) Hypertension ICD Codes: I10 - Essential (primary) hypertension Status: Chronic Plan: - See above (6) Hyperlipidemia ICD Codes: E78.5 - Hyperlipidemia, unspecified Status: Chronic Plan: - Statin was held as an outpt (7) CAD (coronary artery disease) ICD Codes: I25.10 - Atherosclerotic heart disease of [place] coronary artery without angina pectoris Status: Chronic Plan: - Pt with hx of CAD and NSTEMI in 2010 s/p stent in the RCA (8) Tobacco abuse ICD Codes: Z72.0 - Tobacco use Status: Chronic Problem Qualifiers (1) Abdominal pain: Qualified Codes: R10.84 - Generalized abdominal pain (2) Ascites: Qualified Codes: R18.8 - Other ascites (3) Hypertension: Qualified Codes: I10 - Essential (primary) hypertension Xu Hoover DO Jun 30, 2017 20:17
[2017-06-30] MEDS: ASPIRIN EC 81 MG TABEC PO SCH (21:13)
[2017-06-30] MEDS: FAT EMULSION 20% INJ 250 ML (@10 mls/hr) IV-CENTRAL SCH (21:20)
[2017-06-30] MEDS: SODIUM CHLORIDE IV-CENTRAL SCH ×9 (21:21)
[2017-06-30] MEDS: [UNRECOGNIZED DRUG - OTHER] IV-CENTRAL SCH ×9 (21:21)
[2017-06-30] MEDS: SODIUM ACETATE IV-CENTRAL SCH ×9 (21:21)
[2017-07-01] VITALS (7 sets, daily range): BP systolic 119–132; BP diastolic 74–81; PULSE 115–129; RESP 16–18; TEMP 98.3–98.8; O2SAT 93–98
[2017-07-01] MEDS: HYDROmorphone HCL PF 1 MG/ML VIAL IV PUSH PRN ×3 (01:31→12:50)
[2017-07-01] MEDS: METOPROLOL TARTRATE 5 MG/5 ML VIAL IV PUSH SCH ×6 (04:00→19:59)
[2017-07-01] MEDS: MUPIROCIN 2% OINT 22 GM TUBE TOPICAL SCH ×3 (05:18→20:21)
[2017-07-01] MEDS: INSULIN ASPART SUPPLEMENTAL SCALE SQ SCH ×4 (08:00→19:56)
[2017-07-01] MEDS: ONDANSETRON HCL 4 MG/2 ML VIAL IV PUSH PRN ×2 (08:44→20:11)
[2017-07-01] MEDS: SODIUM CHLORIDE 0.9% FLUSH 10 ML FLUSH IV FLUSH SCH ×3 (08:45→19:59)
[2017-07-01] MEDS: DULoxetine HCl DR 30 MG CAP PO SCH (08:45)
[2017-07-01] MEDS: DOCUSATE SODIUM 100 MG CAP PO SCH ×2 (08:45→19:57)
[2017-07-01] MEDS: ENOXAPARIN SODIUM 40 MG/0.4 ML SYRINGE SQ SCH (08:46)
[2017-07-01] MEDS: PANTOPRAZOLE SODIUM 40 MG VIAL IV PUSH SCH ×2 (10:17→19:59)
[2017-07-01] MEDS: FUROSEMIDE 20 MG/2 ML VIAL IV PUSH SCH ×2 (10:17→17:13)
[2017-07-01] MEDS: LORazepam 2 MG/ML VIAL IV SCH ×3 (10:19→18:00)
[2017-07-01] MEDS: INSULIN DETEMIR 100 UNITS/ML VIAL SQ SCH ×2 (10:20→20:12)
--- NOTE | 2017-07-01 10:50 | HHI.PR ---
Subjective Remarks Pt appears comfortable today. Pt has received 2 dose of dilaudid for breakthrough pain since [place]. For breakfast, pt had 1/2 can ensure and a few teaspoons of grits. Pt is tolerating having G-tube clamped for about 2 hours. Objective Vitals Vital Signs Date Time Temp Pulse Resp B/P (MAP) Pulse Ox O2 Delivery O2 Flow Rate FiO2 07/01/17 09:14 98.4 123 18 132/78 (96) 96 07/01/17 09:04 94 21 07/01/17 05:16 98.3 122 16 123/81 (95) 94 07/01/17 00:20 98.8 129 16 125/77 (93) 93 06/30/17 22:20 21 06/30/17 20:00 98.6 120 16 147/89 (108) 96 06/30/17 20:00 128 06/30/17 15:55 98.2 126 20 101/74 (83) 95 06/30/17 12:16 98.5 121 20 118/69 (85) 96 Result Diagram: 06/28/17 0345 06/28/17 0345 Imaging Last Impressions Gastrostomy Tube Placement 06/16/17 0000 Signed Impressions: Service Date/Time: Friday, June 16, 2017 15:58 - CONCLUSION: Uncomplicated gastrostomy tube placement as above. Carl Lamar Jr., MD Chest X-Ray 06/14/17 0000 Signed Impressions: Service Date/Time: Wednesday, June 14, 2017 17:04 - CONCLUSION: Stable chest x-ray with a small to moderate size left pleural effusion with associated volume loss and/or consolidation. Chilango Shaw MD Abdomen X-Ray 06/14/17 0000 Signed Impressions: Service Date/Time: Wednesday, June 14, 2017 13:22 - CONCLUSION: 1. Nasogastric tube distal tip in the gastric body. 2. Stable small to moderate size left pleural effusion. Chilango Shaw MD Abdomen Ultrasound 06/14/17 0000 Signed Impressions: Service Date/Time: Wednesday, June 14, 2017 09:29 - CONCLUSION: Small volume of free fluid is present within the abdomen or pelvis. Chilango Shaw MD Lower Extremity Ultrasound 06/12/17 0000 Signed Impressions: Service Date/Time: Monday, June 12, 2017 14:04 - CONCLUSION: Normal examination. Ron Kim MD Abdomen/Pelvis CT 06/09/17 0000 Signed Impressions: Service Date/Time: Friday, June 09, 2017 12:50 - CONCLUSION: 1. Diffuse abdominal ascites. With omental thickening. Ascites could either be from cirrhotic changes or peritoneal carcinomatosis. 2. No findings to indicate bowel obstruction. 3. Small bilateral effusions with dependent atelectasis. Xaiver Kellogg MD Paracentesis 06/04/17 0000 Signed Impressions: Service Date/Time: Sunday, June 04, 2017 14:57 - CONCLUSION: Uncomplicated CT Guided paracentesis with removal of 3.6 L of fluid. Sample was saved and sent to the lab for evaluation. Chilango Shaw MD Abdomen Biopsy CT 06/04/17 0000 Signed Impressions: Service Date/Time: Sunday, June 04, 2017 14:57 - CONCLUSION: Uncomplicated CT guided biopsy of the omentum. Chilango Shaw MD Liver Ultrasound 06/02/17 0000 Signed Impressions: Service Date/Time: Friday, June 02, 2017 23:21 - CONCLUSION: 1. Cirrhosis 2. Possible mass right lobe of the liver. MRI is recommended for further evaluation if clinically indicated. 3. Moderate ascites Mert Paige MD Cyst Biopsy Asp-Paracentesis US 05/31/17 0000 Signed Impressions: Service Date/Time: Wednesday, May 31, 2017 16:43 - CONCLUSION: Uncomplicated ultrasound guided paracentesis. Minimal fluid aspirated. 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 - Pt presented to the ED with complaints of worsening abdominal pain and distension. She states that she has been having issues with abd pain for the last 2 months. For the last 2 weeks she has been having increased generalized abd pain and distension which has been significantly worse over the last 2 days. - CT Abd/pelvis revealed ascites appears complex and new from 03/23/17. - She was previously seen in the ED on 03/[address] abd/pelvis at that time noted an 18mm lesion in the right lobe of the liver, with features favoring hemangioma. She was sent for followup as an outpt with GI. She had an MRI Abdomen W/O Contrast (05/13/17) with benign hemangioma in the caudate lobe of the liver corresponding to the lesion identified on CT otherwise normal examination. - Outpt workup with GI in April 2017 revealed positive ASMA, positive RACHELE, and RODRIGUEZ FibroSURE with fibrosis score of 0.04 (No fibrosis), Steatosis score of 0.78/S3 (marked or severe steatosis). Viral Hepatitis was negative. IgG subclasses were WNL, LKM Ab negative, AMA negative, Iron studies WNL, Ferritin 160 (slightly elevated), Ceruloplasmin WNL. Labs on 05/12/17 with AST 54, ALT 81, AlkPhos 92, Tbili 0.8 , DBili 0.2. autoimmune hepatitis was questioned. - Pt had diagnostic paracentesis on 05/31 with removal of 15cc of fluid - Cell count for the fluid noted WBC count 1657 - Fluid culture with no growth - cytology --> atypical epithelioid cells suspicious for malignancy - Repeat paracentesis 06/04/17 - 3,600ml of ascites removed - Ascitic Cell count: WBC 494, RBC 6525 - Fluid culture shows ngtd - cytology -->suspicious for malignant cells - Pt underwent Omental Biopsy (06/04/17) --> path suspicious for signet cell adenoca - EGD 06/11 --> antral ulcerated mass with near obstruction of outlet. 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 - Heme-Onc, Dr. Davis, is following. - She was started on palliative systemic therapy with FOLFOX to help debulk her tumor to relieve some of her gastric symptoms of obstruction - She received 2 cycles 06/12/2017, 06/26/17 - IR placed G tube on 06/16. removed NGT on 06/17 - PICC line placed 06/11 and pt is on TPN - G tube to gravity, G tube dependent - Pt seems to now be tolerating a small amount of PO intake, observe. Hopefully this continues to improve & pt is able to tolerate having her G-tube clamped for longer periods of time. - Pt is TPN dependent for nutritional support - Pt's blood sugar are now stable with NO basal insulin added to TPN; BID Levemir; SSI - On 06/23, G-tube site appeared infected but this has been improving. - Wound Culture (06/23) --> mixed anaerobs - IV Cefepime (06/23 - 06/29) and topical Bactroban (06/23 - 06/01) - Pt's pain being addressed with Fentanyl transdermal and prn IV Dilaudid - fentanyl to 100mcg q3d (06/29) - Cont. IV Dilaudid PRN - Daily PT - DNR - DVT prophylaxis with Lovenox - anticipate that pt will need continued hospitalization for at least another 4- 5 days. Will continue to try to convert nutrition/medications to PO depending on pt tolerance. (2) Sinus tachycardia ICD Codes: R00.0 - Tachycardia, unspecified Status: Acute Plan: - Pt developed sinus tachycardia with rates into the 140's, felt to likely be secondary to physiological response related to her malignant/obstructive process and stopping her chronic bb. - IV metoprolol (3) Abdominal pain ICD Codes: R10.9 - Unspecified abdominal pain Status: Acute Plan: - See above. (4) Ascites ICD Codes: R18.8 - Other ascites Status: Acute Plan: - See above - Pts last paracentesis was on 06/04 with removal of 3600cc of ascetic fluid - continue IV Lasix - At this time pt does have some ascites that could be drained but she wants to hold off on repeat paracentesis as the last one was very painful per the pt - Will readdress in the next 1-2 days. (5) Hypertension ICD Codes: I10 - Essential (primary) hypertension Status: Chronic Plan: - See above (6) Hyperlipidemia ICD Codes: E78.5 - Hyperlipidemia, unspecified Status: Chronic Plan: - Statin was held as an outpt (7) CAD (coronary artery disease) ICD Codes: I25.10 - Atherosclerotic heart disease of [place] coronary artery without angina pectoris Status: Chronic Plan: - Pt with hx of CAD and NSTEMI in 2010 s/p stent in the RCA (8) Tobacco abuse ICD Codes: Z72.0 - Tobacco use Status: Chronic Problem Qualifiers (1) Abdominal pain: Qualified Codes: R10.84 - Generalized abdominal pain (2) Ascites: Qualified Codes: R18.8 - Other ascites (3) Hypertension: Qualified Codes: I10 - Essential (primary) hypertension Xu Hoover DO Jul 01, 2017 10:50
--- NOTE | 2017-07-01 18:45 | PD.ONC.PN ---
Subjective Subjective Remarks Patient seen and examined, vital signs, labs, medication and events over the past 24 hours were reviewed. Subjectively, she continues to have abdominal distention and pain. We attempted to clamp her PEG tube for about 3 hours yesterday and she had vomiting and essentially vomited most of her gastric contents. She continues to have sustained tachycardia. Objective Data Date Time Temp Pulse Resp B/P (MAP) Pulse Ox O2 Delivery O2 Flow Rate FiO2 07/01/17 17:23 98.3 115 18 125/75 (92) 96 07/01/17 11:55 98.8 120 16 128/76 (93) 98 07/01/17 09:14 98.4 123 18 132/78 (96) 96 07/01/17 09:04 94 21 07/01/17 05:16 98.3 122 16 123/81 (95) 94 07/01/17 00:20 98.8 129 16 125/77 (93) 93 06/30/17 22:20 21 06/30/17 20:00 98.6 120 16 147/89 (108) 96 06/30/17 20:00 128 07/01/17 07/01/17 07/01/17 07:00 15:00 23:00 Intake Total 682 ml Output Total 1475 ml 800 ml Balance -793 ml -800 ml Result Diagram: 06/28/17 0345 06/28/17 0345 Administered Medications Medications (Trade) Dose Ordered Sig/Nelda Route PRN Reason Start Time Stop Time Status Last Admin Dose Admin Sodium Chloride (NS Flush) 2 ml UNSCH PRN IV FLUSH FLUSH AFTER USING IV ACCESS 05/31/17 16:00 06/28/17 03:49 Sodium Chloride (NS Flush) 2 ml BID IV FLUSH 05/31/17 21:00 07/01/17 08:45 Aspirin (Ecotrin Ec) 81 mg HS PO 05/31/17 21:00 06/30/17 21:13 Miscellaneous (Pill Splitter) 1 ea UNSCH PRN OTHER SEE LABEL COMMENTS 05/31/17 21:00 06/12/17 09:05 Ondansetron HCl (Zofran Inj) 4 mg Q4H PRN IV PUSH NAUSEA 06/07/17 21:00 07/01/17 08:44 Pantoprazole Sodium (Protonix Inj) 40 mg Q12H IV PUSH 06/08/17 21:00 07/01/17 10:17 Fat Emulsion Intravenous 250 ml @ 10 mls/hr Q24H IV-CENTRAL 06/10/17 20:00 06/30/17 21:20 Phenol (Chloraseptic [place]) 2 spray Q2H PRN OROPHARYNG throat pain 06/11/17 12:00 06/12/17 02:47 Sodium Chloride (NS Flush) See Protocol DAILY IV FLUSH 06/12/17 09:00 07/01/17 10:18 Heparin Sodium (Porcine) (Heparin Central Flush) See Protocol DAILY IV FLUSH 06/12/17 09:00 07/01/17 10:18 Heparin Sodium (Porcine) (Heparin Central Flush) See Protocol UNSCH PRN IV FLUSH SEE PROTOCOL TABLE 06/11/17 12:30 06/30/17 06:44 Sodium Chloride (NS Flush) UNSCH PRN IV FLUSH SEE PROTOCOL TABLE 06/11/17 12:30 06/30/17 06:44 Enoxaparin Sodium (Lovenox Inj) 40 mg Q24H SQ 06/13/17 08:15 Future hold 07/01/17 08:46 Lorazepam (Ativan Inj) 0.5 mg Q6H PRN IV PUSH nausea/anxiety 06/13/17 14:45 06/30/17 00:38 Insulin Detemir (Levemir Inj) 30 units Q12HR SQ 06/18/17 09:00 07/01/17 10:20 Insulin Aspart (NovoLOG SUPPLEMENTAL SCALE) 1 ACHS SLIDING SCALE SQ 06/18/17 08:00 07/01/17 12:00 Hydromorphone HCl (Dilaudid Pf Inj) 1 mg Q2H PRN IV PUSH pain 3-10 06/19/17 09:00 07/01/17 12:50 Sodium Chloride 11 meq/Sodium Acetate 59 meq/ Potassium Chloride 120 meq/ Sodium Phosphate 40 meq/Magnesium Chloride 10 meq/ Calcium Chloride 9 meq/ Multivitamins 10 ml/Folic Acid 1 mg/Amino Acids/ Dextrose 2,124.1437 ml @ 75 mls/hr Q24H IV-CENTRAL 06/19/17 20:00 06/30/17 21:21 Docusate Sodium (Colace) 100 mg BID PO 06/21/17 21:00 06/29/17 08:37 Furosemide (Lasix Inj) 20 mg BID@09,18 IV PUSH 06/22/17 09:00 07/01/17 17:13 Mupirocin (Bactroban 2% Oint) 1 applic Q8HR TOPICAL 06/23/17 09:00 07/01/17 23:55 07/01/17 14:38 Metoprolol Tartrate (Lopressor Inj) 5 mg Q4H IV PUSH 06/28/17 12:00 07/01/17 16:00 Fentanyl (Duragesic 100 Mcg Patch.72 Hr) 1 patch Q3D T-DERMAL 06/29/17 11:00 06/29/17 11:41 Lorazepam (Ativan Inj) 0.5 mg TID IV 06/30/17 09:00 07/01/17 13:00 Duloxetine HCl (Cymbalta Dr) 30 mg DAILY PO 07/01/17 09:00 07/01/17 08:45 Objective Remarks Ms. Vicente is a middle-aged female. She is sitting up in bed. she appears to be Uncomfortable, she is arousable and alert. NG tube has been removed from the left nostril. HEENT: Head atraumatic, normocephalic, conjunctivae are mildly pale, sclerae are anicteric, EOMI, PERRLA, oral exam no pharyngeal erythema. NECK: No palpable cervical or supraclavicular lymphadenopathy. RESPIRATORY: Decreased bibasilar breath sounds. Good air movement over the upper and middle lung zones. No wheezing or rhonchi. CARDIOVASCULAR: tachycardia, regular, S1-S2. No obvious murmurs, rubs or gallops. Heart rate sustained in the 120-130 bpm range. ABDOMEN: Distended abdomen, firm, tender to mild palpation, no obvious organ enlargement noted. Drainage noted at the site of gastrostomy tube insertion, erythema of the skin surrounding the gastrostomy tube insertion. LOWER EXTREMITIES: Bilateral pretibial edema, no calf tenderness. MUSCULOSKELETAL: Good muscle mass, tone and strength. 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 Assessment/Plan Assessment Ms. Vicente is a 52-year-old female with a 2.5 month history of progressive epigastric pain, nausea, vomiting and abdominal distension. She was noted on imaging studies on 06/10/2017 to have omental thickening and ascites. Omental biopsy revealed findings highly concerning for a high-grade adenocarcinoma with signet cell features. An EGD ensued and the EGD revealed an antral mass involving the gastric wall associated with ulceration and thickening. 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 Her major complaints are that of abdominal distension, pain and nausea. Plan 1. Metastatic Gastric Ca: S/p C2 FOLFOX. Her disease associated with peritoneal carcinomatosis in her abdomen remains distended. 2. Gastric outlet obstruction: Clinically there is no evidence of gastric emptying. The PEG tube needs to remain on suction to prevent vomiting. 3. Sinus Tachycardia on oral Beta blockers. Disposition: Encourage by mouth intake. Pain control and anxiety management. Thus far following 2 cycles of chemotherapy there is limited clinical improvement in her condition. I did broach the difficult topic of palliative care and possible hospice level of care for her given her poor ECOG performance status, reliance on parenteral nutrition and extensive metastatic disease. Patient tells me she would like to consider hospice when it is clear her disease is not responding to treatment. Memo Davis MD Jul 01, 2017 18:45
[2017-07-01] MEDS: SODIUM CHLORIDE IV-CENTRAL SCH ×9 (19:58)
[2017-07-01] MEDS: FAT EMULSION 20% INJ 250 ML (@10 mls/hr) IV-CENTRAL SCH (19:58)
[2017-07-01] MEDS: SODIUM ACETATE IV-CENTRAL SCH ×9 (19:58)
[2017-07-01] MEDS: [UNRECOGNIZED DRUG - OTHER] IV-CENTRAL SCH ×9 (19:58)
[2017-07-01] MEDS: ASPIRIN EC 81 MG TABEC PO SCH (19:59)
[2017-07-02] VITALS: BP 126/83; PULSE 121; RESP 16; TEMP 98.5; O2SAT 95
[2017-07-02] MEDS: METOPROLOL TARTRATE 5 MG/5 ML VIAL IV PUSH SCH ×6 (00:29→20:34)
[2017-07-02] MEDS: HYDROmorphone HCL PF 1 MG/ML VIAL IV PUSH PRN ×3 (00:51→16:47)
[2017-07-02 04:07] VITALS: BP 152/81; PULSE 128; RESP 18; TEMP 98.1; O2SAT 98
[2017-07-02] MEDS: LORazepam 2 MG/ML VIAL IV PUSH PRN (04:09)
[2017-07-02] MEDS: INSULIN ASPART SUPPLEMENTAL SCALE SQ SCH ×4 (08:00→20:40)
[2017-07-02 08:15] VITALS: BP 135/86; PULSE 122; RESP 18; TEMP 98.7; O2SAT 96
[2017-07-02] MEDS: DOCUSATE SODIUM 100 MG CAP PO SCH ×2 (09:00→20:27)
[2017-07-02] MEDS: LORazepam 2 MG/ML VIAL IV SCH ×2 (09:00→13:45)
[2017-07-02] MEDS: DULoxetine HCl DR 30 MG CAP PO SCH (09:57)
[2017-07-02] MEDS: ENOXAPARIN SODIUM 40 MG/0.4 ML SYRINGE SQ SCH (09:57)
[2017-07-02] MEDS: SODIUM CHLORIDE 0.9% FLUSH 10 ML FLUSH IV FLUSH SCH ×3 (09:57→20:27)
[2017-07-02] MEDS: PANTOPRAZOLE SODIUM 40 MG VIAL IV PUSH SCH ×2 (09:58→20:22)
[2017-07-02] MEDS: FUROSEMIDE 20 MG/2 ML VIAL IV PUSH SCH ×2 (09:58→18:16)
[2017-07-02] MEDS: INSULIN DETEMIR 100 UNITS/ML VIAL SQ SCH ×2 (09:59→20:39)
--- NOTE | 2017-07-02 10:29 | HHI.PR ---
Subjective Remarks Pt is more painful this AM. Pt has required several doses of IV dilaudid for breakthrough pain in the last 24 hours. Pt able to tolerate only a minimal amount of PO intake: 1/4 can of ensure and a few bites. Objective Vitals Vital Signs Date Time Temp Pulse Resp B/P (MAP) Pulse Ox O2 Delivery O2 Flow Rate FiO2 07/02/17 08:06 Nasal Cannula 07/02/17 04:07 98.1 128 18 152/81 (104) 98 07/02/17 00:00 98.5 121 16 126/83 (97) 95 07/01/17 20:00 98.5 121 18 119/74 (89) 94 07/01/17 20:00 122 07/01/17 17:23 98.3 115 18 125/75 (92) 96 07/01/17 11:55 98.8 120 16 128/76 (93) 98 Result Diagram: 06/28/17 0345 06/28/17 0345 Imaging Last Impressions Gastrostomy Tube Placement 06/16/17 0000 Signed Impressions: Service Date/Time: Friday, June 16, 2017 15:58 - CONCLUSION: Uncomplicated gastrostomy tube placement as above. Carl Lamar Jr., MD Chest X-Ray 06/14/17 0000 Signed Impressions: Service Date/Time: Wednesday, June 14, 2017 17:04 - CONCLUSION: Stable chest x-ray with a small to moderate size left pleural effusion with associated volume loss and/or consolidation. Chilango Shaw MD Abdomen X-Ray 06/14/17 0000 Signed Impressions: Service Date/Time: Wednesday, June 14, 2017 13:22 - CONCLUSION: 1. Nasogastric tube distal tip in the gastric body. 2. Stable small to moderate size left pleural effusion. Chilango Shaw MD Abdomen Ultrasound 06/14/17 0000 Signed Impressions: Service Date/Time: Wednesday, June 14, 2017 09:29 - CONCLUSION: Small volume of free fluid is present within the abdomen or pelvis. Chilango Shaw MD Lower Extremity Ultrasound 06/12/17 0000 Signed Impressions: Service Date/Time: Monday, June 12, 2017 14:04 - CONCLUSION: Normal examination. Ron Kim MD Abdomen/Pelvis CT 06/09/17 0000 Signed Impressions: Service Date/Time: Friday, June 09, 2017 12:50 - CONCLUSION: 1. Diffuse abdominal ascites. With omental thickening. Ascites could either be from cirrhotic changes or peritoneal carcinomatosis. 2. No findings to indicate bowel obstruction. 3. Small bilateral effusions with dependent atelectasis. Xavier Kellogg MD Paracentesis 06/04/17 0000 Signed Impressions: Service Date/Time: Sunday, June 04, 2017 14:57 - CONCLUSION: Uncomplicated CT Guided paracentesis with removal of 3.6 L of fluid. Sample was saved and sent to the lab for evaluation. Chilango Shaw MD Abdomen Biopsy CT 06/04/17 0000 Signed Impressions: Service Date/Time: Sunday, June 04, 2017 14:57 - CONCLUSION: Uncomplicated CT guided biopsy of the omentum. Chilango Shaw MD Liver Ultrasound 06/02/17 0000 Signed Impressions: Service Date/Time: Friday, June 02, 2017 23:21 - CONCLUSION: 1. Cirrhosis 2. Possible mass right lobe of the liver. MRI is recommended for further evaluation if clinically indicated. 3. Moderate ascites Mert Paige MD Cyst Biopsy Asp-Paracentesis US 05/31/17 0000 Signed Impressions: Service Date/Time: Wednesday, May 31, 2017 16:43 - CONCLUSION: Uncomplicated ultrasound guided paracentesis. Minimal fluid aspirated. 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 - Pt presented to the ED with complaints of worsening abdominal pain and distension. She states that she has been having issues with abd pain for the last 2 months. For the last 2 weeks she has been having increased generalized abd pain and distension which has been significantly worse over the last 2 days. - CT Abd/pelvis revealed ascites appears complex and new from 03/23/17. - She was previously seen in the ED on 03/[address] abd/pelvis at that time noted an 18mm lesion in the right lobe of the liver, with features favoring hemangioma. She was sent for followup as an outpt with GI. She had an MRI Abdomen W/O Contrast (05/13/17) with benign hemangioma in the caudate lobe of the liver corresponding to the lesion identified on CT otherwise normal examination. - Outpt workup with GI in April 2017 revealed positive ASMA, positive RACHELE, and RODRIGUEZ FibroSURE with fibrosis score of 0.04 (No fibrosis), Steatosis score of 0.78/S3 (marked or severe steatosis). Viral Hepatitis was negative. IgG subclasses were WNL, LKM Ab negative, AMA negative, Iron studies WNL, Ferritin 160 (slightly elevated), Ceruloplasmin WNL. Labs on 05/12/17 with AST 54, ALT 81, AlkPhos 92, Tbili 0.8 , DBili 0.2. autoimmune hepatitis was questioned. - Pt had diagnostic paracentesis on 05/31 with removal of 15cc of fluid - Cell count for the fluid noted WBC count 1657 - Fluid culture with no growth - cytology --> atypical epithelioid cells suspicious for malignancy - Repeat paracentesis 06/04/17 - 3,600ml of ascites removed - Ascitic Cell count: WBC 494, RBC 6525 - Fluid culture shows ngtd - cytology -->suspicious for malignant cells - Pt underwent Omental Biopsy (06/04/17) --> path suspicious for signet cell adenoca - EGD 06/11 --> antral ulcerated mass with near obstruction of outlet. 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 - Heme-Onc, Dr. Davis, is following. - She was started on palliative systemic therapy with FOLFOX to help debulk her tumor to relieve some of her gastric symptoms of obstruction - She received 2 cycles 06/12/2017, 06/26/17 - IR placed G tube on 06/16. removed NGT on 06/17 - PICC line placed 06/11 and pt is on TPN - G tube to gravity, G tube dependent - Pt seems to now be tolerating a small amount of PO intake, observe. Hopefully this continues to improve & pt is able to tolerate having her G-tube clamped for longer periods of time. - Pt is TPN dependent for nutritional support - Pt's blood sugar are now stable with NO basal insulin added to TPN; BID Levemir; SSI - On 06/23, G-tube site appeared infected but this has been improving. - Wound Culture (06/23) --> mixed anaerobs - IV Cefepime (06/23 - 06/29) and topical Bactroban (06/23 - 06/01) - Pt's pain being addressed with Fentanyl transdermal and prn IV Dilaudid - increase fentanyl to 125mcg q3d (06/29) - Cont. IV Dilaudid PRN - Daily PT - DNR - DVT prophylaxis with Lovenox - Case d/w Dr. Davis last night (07/01/17). Pt NOT making any significant clinical improvement following 2 rounds of chemotherapy. Pt wants to know if there is any role for radiation therapy. I will defer to Dr. Davis. I pt still NOT showing any clinical improvement by 07/05/17, will again discuss transitioning to Hospice. (2) Sinus tachycardia ICD Codes: R00.0 - Tachycardia, unspecified Status: Acute Plan: - Pt developed sinus tachycardia with rates into the 140's, felt to likely be secondary to physiological response related to her malignant/obstructive process and stopping her chronic bb. - IV metoprolol (3) Abdominal pain ICD Codes: R10.9 - Unspecified abdominal pain Status: Acute Plan: - See above. (4) Ascites ICD Codes: R18.8 - Other ascites Status: Acute Plan: - See above - Pts last paracentesis was on 06/04 with removal of 3600cc of ascetic fluid - continue IV Lasix - At this time pt does have some ascites that could be drained but she wants to hold off on repeat paracentesis as the last one was very painful per the pt - Will readdress in the next 1-2 days. (5) Hypertension ICD Codes: I10 - Essential (primary) hypertension Status: Chronic Plan: - See above (6) Hyperlipidemia ICD Codes: E78.5 - Hyperlipidemia, unspecified Status: Chronic Plan: - Statin was held as an outpt (7) CAD (coronary artery disease) ICD Codes: I25.10 - Atherosclerotic heart disease of [place] coronary artery without angina pectoris Status: Chronic Plan: - Pt with hx of CAD and NSTEMI in 2011 s/p stent in the RCA (8) Tobacco abuse ICD Codes: Z72.0 - Tobacco use Status: Chronic Problem Qualifiers (1) Abdominal pain: Qualified Codes: R10.84 - Generalized abdominal pain (2) Ascites: Qualified Codes: R18.8 - Other ascites (3) Hypertension: Qualified Codes: I10 - Essential (primary) hypertension Xu Hoover DO Jul 02, 2017 10:29
[2017-07-02] MEDS ORDERED: REMOVE OLD DURAGESIC (FENTANYL) PATCH T-DERMAL SCH (11:00)
[2017-07-02] MEDS ORDERED: fentaNYL 100 MCG/HR PATCH T-DERMAL SCH ×2 (12:00→16:00)
[2017-07-02] MEDS ORDERED: fentaNYL 25 MCG/HR PATCH T-DERMAL SCH ×3 (12:00→16:15)
[2017-07-02 12:30] VITALS: BP 128/78; PULSE 128; RESP 18; TEMP 98.6; O2SAT 98
[2017-07-02] MEDS ORDERED: REMOVE OLD PATCH T-DERMAL SCH ×2 (16:00→16:08)
[2017-07-02 16:50] VITALS: BP 146/77; PULSE 112; RESP 18; TEMP 98.8; O2SAT 98
--- NOTE | 2017-07-02 18:18 | PD.ONC.PN ---
Subjective Subjective Remarks Patient seen and examined, vital signs, labs and medications reviewed. Subjectively, she feels sleepy and sedated. She tells me she just had her scheduled hydromorphone dosing, her fentanyl patches were increased to 125 g per hour earlier today. She continues to attempt to drink liquids but most of what she drinks needs to be suctioned out of her PEG tube. Objective Data Date Time Temp Pulse Resp B/P (MAP) Pulse Ox O2 Delivery O2 Flow Rate FiO2 07/02/17 12:30 98.6 128 18 128/78 (95) 98 07/02/17 08:15 98.7 122 18 135/86 (102) 96 07/02/17 08:06 Nasal Cannula 07/02/17 04:07 98.1 128 18 152/81 (104) 98 07/02/17 00:00 98.5 121 16 126/83 (97) 95 07/01/17 20:00 98.5 121 18 119/74 (89) 94 07/01/17 20:00 122 07/02/17 07/02/17 07/02/17 07:00 15:00 23:00 Output Total 2000 ml Balance -2000 ml Result Diagram: 06/28/17 0345 06/28/17 0345 Administered Medications Medications (Trade) Dose Ordered Sig/Nelda Route PRN Reason Start Time Stop Time Status Last Admin Dose Admin Sodium Chloride (NS Flush) 2 ml UNSCH PRN IV FLUSH FLUSH AFTER USING IV ACCESS 05/31/17 16:00 06/28/17 03:49 Sodium Chloride (NS Flush) 2 ml BID IV FLUSH 05/31/17 21:00 07/02/17 10:00 Aspirin (Ecotrin Ec) 81 mg HS PO 05/31/17 21:00 07/01/17 19:59 Miscellaneous (Pill Splitter) 1 ea UNSCH PRN OTHER SEE LABEL COMMENTS 05/31/17 21:00 06/12/17 09:05 Ondansetron HCl (Zofran Inj) 4 mg Q4H PRN IV PUSH NAUSEA 06/07/17 21:00 07/01/17 20:11 Pantoprazole Sodium (Protonix Inj) 40 mg Q12H IV PUSH 06/08/17 21:00 07/02/17 09:58 Fat Emulsion Intravenous 250 ml @ 10 mls/hr Q24H IV-CENTRAL 06/10/17 20:00 07/01/17 19:58 Phenol (Chloraseptic [place]) 2 spray Q2H PRN OROPHARYNG throat pain 06/11/17 12:00 06/12/17 02:47 Sodium Chloride (NS Flush) See Protocol DAILY IV FLUSH 06/12/17 09:00 07/02/17 09:57 Heparin Sodium (Porcine) (Heparin Central Flush) See Protocol DAILY IV FLUSH 06/12/17 09:00 07/02/17 09:57 Heparin Sodium (Porcine) (Heparin Central Flush) See Protocol UNSCH PRN IV FLUSH SEE PROTOCOL TABLE 06/11/17 12:30 06/30/17 06:44 Sodium Chloride (NS Flush) UNSCH PRN IV FLUSH SEE PROTOCOL TABLE 06/11/17 12:30 06/30/17 06:44 Enoxaparin Sodium (Lovenox Inj) 40 mg Q24H SQ 06/13/17 08:15 Future hold 07/02/17 09:57 Lorazepam (Ativan Inj) 0.5 mg Q6H PRN IV PUSH nausea/anxiety 06/13/17 14:45 07/02/17 04:09 Insulin Detemir (Levemir Inj) 30 units Q12HR SQ 06/18/17 09:00 07/02/17 09:59 Insulin Aspart (NovoLOG SUPPLEMENTAL SCALE) 1 ACHS SLIDING SCALE SQ 06/18/17 08:00 07/02/17 12:00 Hydromorphone HCl (Dilaudid Pf Inj) 1 mg Q2H PRN IV PUSH pain 3-10 06/19/17 09:00 07/02/17 16:47 Sodium Chloride 11 meq/Sodium Acetate 59 meq/ Potassium Chloride 120 meq/ Sodium Phosphate 40 meq/Magnesium Chloride 10 meq/ Calcium Chloride 9 meq/ Multivitamins 10 ml/Folic Acid 1 mg/Amino Acids/ Dextrose 2,124.1437 ml @ 75 mls/hr Q24H IV-CENTRAL 06/19/17 20:00 07/01/17 19:58 Docusate Sodium (Colace) 100 mg BID PO 06/21/17 21:00 06/29/17 08:37 Furosemide (Lasix Inj) 20 mg BID@,18 IV PUSH 06/22/17 09:00 07/02/17 09:58 Metoprolol Tartrate (Lopressor Inj) 5 mg Q4H IV PUSH 06/28/17 12:00 07/02/17 16:00 Lorazepam (Ativan Inj) 0.5 mg TID IV 06/30/17 09:00 07/02/17 13:45 Duloxetine HCl (Cymbalta Dr) 30 mg DAILY PO 07/01/17 09:00 07/02/17 09:57 Fentanyl (Duragesic 100 Mcg Patch.72 Hr) 1 patch Q3D T-DERMAL 07/02/17 16:00 07/02/17 16:48 Fentanyl (Duragesic 25 Mcg Patch.72 Hr) 1 patch Q3D T-DERMAL 07/02/17 16:00 07/02/17 16:48 Miscellaneous Information 1 Q3D T-DERMAL 07/02/17 16:00 07/02/17 16:00 Miscellaneous Information 1 Q3D T-DERMAL 07/02/17 16:08 07/02/17 16:08 Objective Remarks Ms. Vicente is a middle-aged female. She is sitting up in bed. she appears to be sedated, she drifts in and out of sleep during our conversation. Her son and some friends are at bedside. HEENT: Head atraumatic, normocephalic, conjunctivae are mildly pale, sclerae are anicteric, EOMI, PERRLA, oral exam no pharyngeal erythema. NECK: No palpable cervical or supraclavicular lymphadenopathy. RESPIRATORY: Decreased bibasilar breath sounds. Good air movement over the upper and middle lung zones. No wheezing or rhonchi. CARDIOVASCULAR: tachycardia, regular, S1-S2. No obvious murmurs, rubs or gallops. Heart rate sustained in the 120-130 bpm range. ABDOMEN: Distended abdomen, firm, tender to mild palpation, no obvious organ enlargement noted. Drainage noted at the site of gastrostomy tube insertion, erythema of the skin surrounding the gastrostomy tube insertion. LOWER EXTREMITIES: Bilateral pretibial edema, no calf tenderness. MUSCULOSKELETAL: Good muscle mass, tone and strength. 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 Assessment/Plan Assessment Ms. Vicente is a 52-year-old female with a 2.5 month history of progressive epigastric pain, nausea, vomiting and abdominal distension. She was noted on imaging studies on 06/10/2017 to have omental thickening and ascites. Omental biopsy revealed findings highly concerning for a high-grade adenocarcinoma with signet cell features. An EGD ensued and the EGD revealed an antral mass involving the gastric wall associated with ulceration and thickening. 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 Her major complaints are that of abdominal distension, pain and nausea. Plan 1. Metastatic Gastric Ca: S/p C2 FOLFOX. Her disease associated with peritoneal carcinomatosis in her abdomen remains distended. Clinical improvement is not evident. 2. Gastric outlet obstruction: Clinically there is no evidence of gastric emptying. The PEG tube needs to remain on suction to prevent vomiting. Radiation oncology consultation requested to discuss palliative radiation to the gastric outlet region. Patient was seen by Dr. Blankenship earlier today. 3. Sinus Tachycardia on oral Beta blockers. 4. Sedation: Ativan dosing decreased to 0.25 mg every 8 hours with instructions to hold for sedation. Memo Davis MD Jul 02, 2017 18:18
[2017-07-02 20:00] VITALS: PULSE 109
[2017-07-02] MEDS: SODIUM CHLORIDE IV-CENTRAL SCH ×9 (20:26)
[2017-07-02] MEDS: [UNRECOGNIZED DRUG - OTHER] IV-CENTRAL SCH ×9 (20:26)
[2017-07-02] MEDS: SODIUM ACETATE IV-CENTRAL SCH ×9 (20:26)
[2017-07-02] MEDS: ASPIRIN EC 81 MG TABEC PO SCH (20:27)
[2017-07-02] MEDS: FAT EMULSION 20% INJ 250 ML (@10 mls/hr) IV-CENTRAL SCH (20:27)
--- NOTE | 2017-07-02 21:35 | MB ---
cc: KAITLYN DAVIS MD, RONALD J. M.D. CUCCHIARELLA, MARIO DATE OF CONSULTATION: 07/02/2017. HISTORY OF PRESENT ILLNESS: This is a 52-year-old female who presented with a two month history of progressive abdominal pain / epigastric pain associated with associated with nausea and vomiting. She has had abdominal distension. 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 There were findings on CT scan concerning for moderate mesenteric edema and omental stranding as well as omental caking. Free fluid in the abdomen was noted. Her stomach was noted to be distended. Cytology from paracentesis was suspicious for malignancy and an image-guided biopsy of the omental caking revealed signet cell adenocarcinoma. She underwent EGD showing an abnormal mass involving the antrum which was ulcerating, very firm and biopsies again confirmed the diagnosis. Since being in the hospital over the past six weeks, she has had two cycles of chemotherapy under Dr. Davis's care. Unfortunately she has had no significant relief. She has a gastric PEG tube in place which is on virtual complete suction. If left clamped for too long, she has nausea and vomiting. As she has not had relief of symptoms with two cycles of FOLFIRINOX chemotherapy. We have been asked to see her to see if there is any form of palliative radiation treatment which may be of benefit. Today this lady is resting comfortably in bed. She has some symptoms of abdominal distension and upper abdominal pain but she has been just recently been given narcotic analgesia and she is nodding off to sleep intermittently. ALLERGIES: PENICILLIN. PAST MEDICAL HISTORY / PAST SURGICAL HISTORY: 1. Coronary artery disease with coronary artery stenting approximately ten years ago. 2. History of hypertension. 3. Borderline diabetes. 4. Hyperlipidemia. 5. She had an EGD with a diagnosis of gastric antral tumor and diagnostic imaging suggestive of metastatic intraabdominal disease. SOCIAL HISTORY / FAMILY HISTORY: Her mother did of metastatic lung cancer and her father from a GI malignancy. She currently lives with her 20-year-old son at home. REVIEW OF SYSTEMS: Review is remarkable for her abdominal pain, abdominal distension and nausea and vomiting. She has been bed-bound in the hospital for the past six weeks. LABORATORY DATA: Her most recent CBC on 06/28 had a white count of 8900, hemoglobin of 9.1, a platelet count 386,000. Her electrolytes were normal, although her sodium was low at 134. Her alkaline phosphatase was elevated at 152. Her total protein 7.1, albumin 2.1. PHYSICAL EXAMINATION: GENERAL: Brief exam today revealed a person who was somewhat drowsy after narcotic analgesia but able to respond to carry on conversation as necessary. She was with her son. VITAL SIGNS: She was afebrile, pulse 128 and regular, respiratory rate 18, blood pressure 128/78, O2 sat of 98%. SKIN, HEAD, EYES, EARS, NOSE, THROAT: There was no jaundice. She had full EOMs. Her mucous membranes did not appear dry. There is no adenopathy in her head and neck. LUNGS: Her lung zurita were clear. HEART: Heart sounds were normal. ABDOMEN: She had definite abdominal distension. She had a PEG tube in place connected to suction and despite this she still had abdominal distension. EXTREMITIES: There is no ankle edema. She is moving all limbs normally. DATA REVIEW: Today I have reviewed this lady's pathology. I have reviewed her extensive imaging including the most recent CT scan of the abdomen and pelvis. She has had multiple abdominal x-rays as well as chest x-rays. She has extensive intra-abdominal disease with the distal gastric mass which appears to be causing obstruction and distended body of her stomach which appears to be causing her significant symptoms. I have offered her palliative radiation treatment to the gastric body and gastric outlet region in an attempt to shrink her tumor in a rapid fashion and have better gastric emptying and improve at least that aspect of her symptomatology. If that can be improved, then one might go on to consider whole abdominal radiation although I have less optimism for that because of the moderate dose that can be delivered in that fashion and the extent of her disease but that can be considered more in the future. We have talked about five treatments. I propose simulation on Wednesday with treatment starting likely on Wednesday. After some discussion with her and her son and her friends present, she has decided she would like to attempt this. As such I hope to proceed with simulation as outlined on Wednesday and start treatment by midweek. MD EDUARDA Rao/PACO /6:00 PM /9:14 PM
[2017-07-03] VITALS (8 sets, daily range): BP systolic 125–158; BP diastolic 79–91; PULSE 113–127; RESP 14–20; TEMP 98.3–99.1; O2SAT 92–96
[2017-07-03] MEDS: METOPROLOL TARTRATE 5 MG/5 ML VIAL IV PUSH SCH ×6 (00:43→20:00)
[2017-07-03] MEDS: HYDROmorphone HCL PF 1 MG/ML VIAL IV PUSH PRN ×4 (06:46→20:08)
--- NOTE | 2017-07-03 09:06 | HHI.PR ---
Subjective Remarks Pt appears comfortable with pain and anxiety controlled. however, pt is somewhat confused and groggy. Will decrease Duragesic back to 100mcg Objective Vitals Vital Signs Date Time Temp Pulse Resp B/P (MAP) Pulse Ox O2 Delivery O2 Flow Rate FiO2 07/03/17 04:51 121 07/03/17 04:00 98.3 124 16 126/79 (95) 93 07/03/17 00:42 98.6 127 19 125/81 (96) 93 07/02/17 20:00 109 07/02/17 16:50 98.8 112 18 146/77 (100) 98 07/02/17 12:30 98.6 128 18 128/78 (95) 98 Imaging Last Impressions Gastrostomy Tube Placement 06/16/17 0000 Signed Impressions: Service Date/Time: Friday, June 16, 2017 15:58 - CONCLUSION: Uncomplicated gastrostomy tube placement as above. Carl Lamar Jr., MD Chest X-Ray 06/14/17 0000 Signed Impressions: Service Date/Time: Wednesday, June 14, 2017 17:04 - CONCLUSION: Stable chest x-ray with a small to moderate size left pleural effusion with associated volume loss and/or consolidation. Chilango Shaw MD Abdomen X-Ray 06/14/17 0000 Signed Impressions: Service Date/Time: Wednesday, June 14, 2017 13:22 - CONCLUSION: 1. Nasogastric tube distal tip in the gastric body. 2. Stable small to moderate size left pleural effusion. Chilango Shaw MD Abdomen Ultrasound 06/14/17 0000 Signed Impressions: Service Date/Time: Wednesday, June 14, 2017 09:29 - CONCLUSION: Small volume of free fluid is present within the abdomen or pelvis. Chilango Shaw MD Lower Extremity Ultrasound 06/12/17 0000 Signed Impressions: Service Date/Time: Monday, June 12, 2017 14:04 - CONCLUSION: Normal examination. Ron Kim MD Abdomen/Pelvis CT 06/09/17 0000 Signed Impressions: Service Date/Time: Friday, June 09, 2017 12:50 - CONCLUSION: 1. Diffuse abdominal ascites. With omental thickening. Ascites could either be from cirrhotic changes or peritoneal carcinomatosis. 2. No findings to indicate bowel obstruction. 3. Small bilateral effusions with dependent atelectasis. Xavier Kellogg MD Paracentesis 06/04/17 0000 Signed Impressions: Service Date/Time: Sunday, June 04, 2017 14:57 - CONCLUSION: Uncomplicated CT Guided paracentesis with removal of 3.6 L of fluid. Sample was saved and sent to the lab for evaluation. Chilango Shaw MD Abdomen Biopsy CT 06/04/17 0000 Signed Impressions: Service Date/Time: Sunday, June 04, 2017 14:57 - CONCLUSION: Uncomplicated CT guided biopsy of the omentum. Chilango Shaw MD Liver Ultrasound 06/02/17 0000 Signed Impressions: Service Date/Time: Friday, June 02, 2017 23:21 - CONCLUSION: 1. Cirrhosis 2. Possible mass right lobe of the liver. MRI is recommended for further evaluation if clinically indicated. 3. Moderate ascites Mert Paige MD Cyst Biopsy Asp-Paracentesis US 05/31/17 0000 Signed Impressions: Service Date/Time: Wednesday, May 31, 2017 16:43 - CONCLUSION: Uncomplicated ultrasound guided paracentesis. Minimal fluid aspirated. 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 - Pt presented to the ED with complaints of worsening abdominal pain and distension. She states that she has been having issues with abd pain for the last 2 months. For the last 2 weeks she has been having increased generalized abd pain and distension which has been significantly worse over the last 2 days. - CT Abd/pelvis revealed ascites appears complex and new from 03/23/17. - She was previously seen in the ED on 03/[address] abd/pelvis at that time noted an 18mm lesion in the right lobe of the liver, with features favoring hemangioma. She was sent for followup as an outpt with GI. She had an MRI Abdomen W/O Contrast (05/13/17) with benign hemangioma in the caudate lobe of the liver corresponding to the lesion identified on CT otherwise normal examination. - Outpt workup with GI in April 2017 revealed positive ASMA, positive RACHELE, and RODRIGUEZ FibroSURE with fibrosis score of 0.04 (No fibrosis), Steatosis score of 0.78/S3 (marked or severe steatosis). Viral Hepatitis was negative. IgG subclasses were WNL, LKM Ab negative, AMA negative, Iron studies WNL, Ferritin 160 (slightly elevated), Ceruloplasmin WNL. Labs on 05/12/17 with AST 54, ALT 81, AlkPhos 92, Tbili 0.8 , DBili 0.2. autoimmune hepatitis was questioned. - Pt had diagnostic paracentesis on 05/31 with removal of 15cc of fluid - Cell count for the fluid noted WBC count 1657 - Fluid culture with no growth - cytology --> atypical epithelioid cells suspicious for malignancy - Repeat paracentesis 06/04/17 - 3,600ml of ascites removed - Ascitic Cell count: WBC 494, RBC 6525 - Fluid culture shows ngtd - cytology -->suspicious for malignant cells - Pt underwent Omental Biopsy (06/04/17) --> path suspicious for signet cell adenoca - EGD 06/11 --> antral ulcerated mass with near obstruction of outlet. 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 - Heme-Onc, Dr. Davis, is following. - She was started on palliative systemic therapy with FOLFOX to help debulk her tumor to relieve some of her gastric symptoms of obstruction - She received 2 cycles 06/12/2017, 06/26/17 - IR placed G tube on 06/16. removed NGT on 06/17 - PICC line placed 06/11 and pt is on TPN - G tube to gravity, G tube dependent - Pt seems to now be tolerating a small amount of PO intake, observe. Hopefully this continues to improve & pt is able to tolerate having her G-tube clamped for longer periods of time. - Pt is TPN dependent for nutritional support - Pt's blood sugar are now stable with NO basal insulin added to TPN; BID Levemir; SSI - On 06/23, G-tube site appeared infected but this has been improving. - Wound Culture (06/23) --> mixed anaerobs - IV Cefepime (06/23 - 06/29) and topical Bactroban (06/23 - 06/01) - Pt's pain being addressed with Fentanyl transdermal and prn IV Dilaudid - increase fentanyl to 125mcg q3d (06/29) - pt somewhat confused and groggy. Will decrease fentanyl to 100mcg (07/03), observe - Pt received IV dilaudid for breakthrough pain three times 07/02 & once since [place] 07/03 - Case discussed at length with Dr. Davis (07/02) - some concern that pt is becoming oversedated. We decreased the scheduled ativan to 0.25mg TID (previously 0.5mg TID) - Pt seen by Radiation Oncology (07/02), Dr. Blankenship - Dr. Blankenship will arrange for Radiation for next week, see his (07/02/17) note - Daily PT - DNR - DVT prophylaxis with Lovenox - Pt NOT making any significant clinical improvement following 2 rounds of chemotherapy. Pt's overall prognosis remains poor. - Hospice would be appropriate, but pt does NOT appear ready for hospice at this point and requesting continued aggressive treatments. (2) Sinus tachycardia ICD Codes: R00.0 - Tachycardia, unspecified Status: Acute Plan: - Pt developed sinus tachycardia with rates into the 140's, felt to likely be secondary to physiological response related to her malignant/obstructive process and stopping her chronic bb. - IV metoprolol (3) Abdominal pain ICD Codes: R10.9 - Unspecified abdominal pain Status: Acute Plan: - See above. (4) Ascites ICD Codes: R18.8 - Other ascites Status: Acute Plan: - See above - Pts last paracentesis was on 06/04 with removal of 3600cc of ascetic fluid - continue IV Lasix - At this time pt does have some ascites that could be drained but she wants to hold off on repeat paracentesis as the last one was very painful per the pt - Will readdress in the next 1-2 days. (5) Hypertension ICD Codes: I10 - Essential (primary) hypertension Status: Chronic Plan: - See above (6) Hyperlipidemia ICD Codes: E78.5 - Hyperlipidemia, unspecified Status: Chronic Plan: - Statin was held as an outpt (7) CAD (coronary artery disease) ICD Codes: I25.10 - Atherosclerotic heart disease of [place] coronary artery without angina pectoris Status: Chronic Plan: - Pt with hx of CAD and NSTEMI in 2011 s/p stent in the RCA (8) Tobacco abuse ICD Codes: Z72.0 - Tobacco use Status: Chronic Problem Qualifiers (1) Abdominal pain: Qualified Codes: R10.84 - Generalized abdominal pain (2) Ascites: Qualified Codes: R18.8 - Other ascites (3) Hypertension: Qualified Codes: I10 - Essential (primary) hypertension Xu Hoover DO Jul 03, 2017 09:06
[2017-07-03] MEDS: INSULIN DETEMIR 100 UNITS/ML VIAL SQ SCH ×2 (10:14→20:35)
[2017-07-03] MEDS: DULoxetine HCl DR 30 MG CAP PO SCH (10:14)
[2017-07-03] MEDS: PANTOPRAZOLE SODIUM 40 MG VIAL IV PUSH SCH ×2 (10:14→20:08)
[2017-07-03] MEDS: DOCUSATE SODIUM 100 MG CAP PO SCH ×2 (10:15→20:10)
[2017-07-03] MEDS: FUROSEMIDE 20 MG/2 ML VIAL IV PUSH SCH ×2 (10:16→17:36)
[2017-07-03] MEDS: ENOXAPARIN SODIUM 40 MG/0.4 ML SYRINGE SQ SCH (10:16)
[2017-07-03] MEDS: LORazepam 2 MG/ML VIAL IV SCH ×3 (10:17→18:00)
--- NOTE | 2017-07-03 10:23 | PD.ONC.PN ---
Subjective Subjective Remarks Afebrile overnight. Patient sitting up in chair next to bed eating breakfast. "I feel good today." No nausea. Feels that she is getting stronger. Objective Data Date Time Temp Pulse Resp B/P (MAP) Pulse Ox O2 Delivery O2 Flow Rate FiO2 07/03/17 04:51 121 07/03/17 04:00 98.3 124 16 126/79 (95) 93 07/03/17 00:42 98.6 127 19 125/81 (96) 93 07/02/17 20:00 109 07/02/17 16:50 98.8 112 18 146/77 (100) 98 07/02/17 12:30 98.6 128 18 128/78 (95) 98 07/03/17 07/03/17 07/03/17 07:00 15:00 23:00 Intake Total 1240 ml Output Total 1200 ml Balance 40 ml Administered Medications Medications (Trade) Dose Ordered Sig/Nelda Route PRN Reason Start Time Stop Time Status Last Admin Dose Admin Sodium Chloride (NS Flush) 2 ml UNSCH PRN IV FLUSH FLUSH AFTER USING IV ACCESS 05/31/17 16:00 06/28/17 03:49 Sodium Chloride (NS Flush) 2 ml BID IV FLUSH 05/31/17 21:00 07/02/17 20:27 Aspirin (Ecotrin Ec) 81 mg HS PO 05/31/17 21:00 07/01/17 19:59 Miscellaneous (Pill Splitter) 1 ea UNSCH PRN OTHER SEE LABEL COMMENTS 05/31/17 21:00 06/12/17 09:05 Ondansetron HCl (Zofran Inj) 4 mg Q4H PRN IV PUSH NAUSEA 06/07/17 21:00 07/01/17 20:11 Pantoprazole Sodium (Protonix Inj) 40 mg Q12H IV PUSH 06/08/17 21:00 07/02/17 20:22 Fat Emulsion Intravenous 250 ml @ 10 mls/hr Q24H IV-CENTRAL 06/10/17 20:00 07/02/17 20:27 Phenol (Chloraseptic [place]) 2 spray Q2H PRN OROPHARYNG throat pain 06/11/17 12:00 06/12/17 02:47 Sodium Chloride (NS Flush) See Protocol DAILY IV FLUSH 06/12/17 09:00 07/02/17 09:57 Heparin Sodium (Porcine) (Heparin Central Flush) See Protocol DAILY IV FLUSH 06/12/17 09:00 07/02/17 09:57 Heparin Sodium (Porcine) (Heparin Central Flush) See Protocol UNSCH PRN IV FLUSH SEE PROTOCOL TABLE 06/11/17 12:30 06/30/17 06:44 Sodium Chloride (NS Flush) UNSCH PRN IV FLUSH SEE PROTOCOL TABLE 06/11/17 12:30 06/30/17 06:44 Enoxaparin Sodium (Lovenox Inj) 40 mg Q24H SQ 06/13/17 08:15 Future hold 07/02/17 09:57 Lorazepam (Ativan Inj) 0.5 mg Q6H PRN IV PUSH nausea/anxiety 06/13/17 14:45 07/02/17 04:09 Insulin Detemir (Levemir Inj) 30 units Q12HR SQ 06/18/17 09:00 07/02/17 20:39 Insulin Aspart (NovoLOG SUPPLEMENTAL SCALE) 1 ACHS SLIDING SCALE SQ 06/18/17 08:00 07/02/17 20:40 Hydromorphone HCl (Dilaudid Pf Inj) 1 mg Q2H PRN IV PUSH pain 3-10 06/19/17 09:00 07/03/17 06:46 Sodium Chloride 11 meq/Sodium Acetate 59 meq/ Potassium Chloride 120 meq/ Sodium Phosphate 40 meq/Magnesium Chloride 10 meq/ Calcium Chloride 9 meq/ Multivitamins 10 ml/Folic Acid 1 mg/Amino Acids/ Dextrose 2,124.1437 ml @ 75 mls/hr Q24H IV-CENTRAL 06/19/17 20:00 07/02/17 20:26 Docusate Sodium (Colace) 100 mg BID PO 06/21/17 21:00 06/29/17 08:37 Furosemide (Lasix Inj) 20 mg BID@,18 IV PUSH 06/22/17 09:00 07/02/17 18:16 Metoprolol Tartrate (Lopressor Inj) 5 mg Q4H IV PUSH 06/28/17 12:00 07/03/17 04:52 Duloxetine HCl (Cymbalta Dr) 30 mg DAILY PO 07/01/17 09:00 07/02/17 09:57 Fentanyl (Duragesic 100 Mcg Patch.72 Hr) 1 patch Q3D T-DERMAL 07/02/17 16:00 07/02/17 16:48 Fentanyl (Duragesic 25 Mcg Patch.72 Hr) 1 patch Q3D T-DERMAL 07/02/17 16:00 07/02/17 16:48 Miscellaneous Information 1 Q3D T-DERMAL 07/02/17 16:00 07/02/17 16:00 Miscellaneous Information 1 Q3D T-DERMAL 07/02/17 16:08 07/02/17 16:08 Objective Remarks GENERAL: Middle aged female sitting up in bed in nad. SKIN: Warm and dry. HEAD: Normocephalic. EYES: No injection or drainage. NECK: Supple, trachea midline. CARDIOVASCULAR: Regular rate and rhythm RESPIRATORY: Breath sounds equal bilaterally. No accessory muscle use. GASTROINTESTINAL: Abdomen soft, non-tender, nondistended. EXTREMITIES: No cyanosis NEUROLOGICAL: awake and alert, normal speech. no obvious focal deficit. Assessment/Plan Assessment Ms. Vicente is a 52-year-old female with a 2.5 month history of progressive epigastric pain, nausea, vomiting and abdominal distension. She was noted on imaging studies on 06/10/2017 to have omental thickening and ascites. Omental biopsy revealed findings highly concerning for a high-grade adenocarcinoma with signet cell features. An EGD ensued and the EGD revealed an antral mass involving the gastric wall associated with ulceration and thickening. 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 Her major complaints are that of abdominal distension, pain and nausea. Plan 1. Metastatic Gastric Ca with peritoneal carcinomatosis. she is status post two cycles of FOLFOX chemotherapy without evidence of clinical improvement. Plan for palliative radiation treatment to the gastric body and gastric outlet region. simulation on Wednesday with treatment starting likely on Wednesday. 2. Gastric outlet obstruction: remains on LIWS. clamps her G-tube while eating. 3. Sinus Tachycardia on oral Beta blockers. 4. Pain: controlled with Fentanyl patch + IV Dilaudid. Attending Statement The exam, history, and the medical decision-making described in the above note were completed with the assistance of the mid-level provider. I reviewed and agree with the findings presented. I attest that I had a [id number] encounter with the patient on the same day, and personally performed and documented my assessment and findings in the medical record. Pain is well controlled states i am too sleepy, wants narcotics to be wean off Duragesic change from 125 to 100 today. Dilaudid is PRN to start XRT next week. has met gastric ca , s/p FOLFOX times 2 with no clinical benefit. Aline Thao Jul 03, 2017 10:23 Charo Kenny MD Jul 03, 2017 17:32
[2017-07-03] MEDS: SODIUM CHLORIDE 0.9% FLUSH 10 ML FLUSH IV FLUSH SCH ×3 (10:36→20:10)
[2017-07-03] MEDS: INSULIN ASPART SUPPLEMENTAL SCALE SQ SCH ×3 (12:57→20:35)
[2017-07-03] MEDS: fentaNYL 100 MCG/HR PATCH T-DERMAL SCH (12:58)
[2017-07-03] MEDS: ASPIRIN EC 81 MG TABEC PO SCH (20:10)
[2017-07-03] MEDS: SODIUM ACETATE IV-CENTRAL SCH ×9 (22:40)
[2017-07-03] MEDS: SODIUM CHLORIDE IV-CENTRAL SCH ×9 (22:40)
[2017-07-03] MEDS: [UNRECOGNIZED DRUG - OTHER] IV-CENTRAL SCH ×9 (22:40)
[2017-07-03] MEDS: FAT EMULSION 20% INJ 250 ML (@10 mls/hr) IV-CENTRAL SCH (22:40)
[2017-07-04] VITALS (9 sets, daily range): BP systolic 133–151; BP diastolic 78–89; PULSE 18–136; RESP 14–20; TEMP 97.7–99.4; O2SAT 94–96
[2017-07-04] MEDS: METOPROLOL TARTRATE 5 MG/5 ML VIAL IV PUSH SCH ×6 (04:00→20:00)
[2017-07-04 06:13] LABS: AUTOMATED NEUTROPHIL # 15.1 TH/MM3 (1.8-7.7); BASOPHIL # 0.1 TH/MM3 (0-0.2); BASOPHIL % 0.4 % (0.0-2.0); EOSINOPHIL # 0.1 TH/MM3 (0-0.4); EOSINOPHIL % 0.6 % (0.0-4.0); HEMATOCRIT 29.6 % (35.0-46.0); LYMPH % 11.3 % (9.0-44.0); LYMPHOCYTE # 2.2 TH/MM3 (1.0-4.8); MEAN CELL VOLUME 86.7 FL (80.0-100.0); MEAN CORPUSCULAR HEMOGLOBIN 27.3 PG (27.0-34.0); MEAN CORPUSCULAR HGB CONC 31.5 % (32.0-36.0); MONO % 10.4 % (0.0-8.0); NEUT % 77.3 % (16.0-70.0); PLATELET COUNT 322 TH/MM3 (150-450); RED BLOOD COUNT 3.42 MIL/MM3 (4.00-5.30); RED CELL DISTRIBUTION WIDTH 15.9 % (11.6-17.2); WHITE BLOOD COUNT 19.5 TH/MM3 (4.0-11.0)
[2017-07-04 06:19] LABS: HEMO FLAGS AUTO DIFF
[2017-07-04 06:42] LABS: BICARBONATE 30.7 MEQ/L (21.0-32.0); MAGNESIUM 1.9 MG/DL (1.5-2.5); POTASSIUM 4.1 MEQ/L (3.5-5.1)
[2017-07-04 08:14] LABS: BANDS 6 % (0-6); METAMYELOCYTES 10 % (0-1); MYELOCYTES 3 % (0-0); NEUTROPHIL # MANUAL DIFF 15.2 TH/MM3 (1.8-7.7); POLYS (SEG NEUTROPHILS) 59 % (16-70); WBC DIFF SAMPLE 100
[2017-07-04 08:16] LABS: PLATELET ESTIMATE SMEAR NORMAL (NORMAL); PLATELET MORPHOLOGY NORMAL (NORMAL); SCAN/DIFF FINAL DIFF MANUAL
[2017-07-04] MEDS: ENOXAPARIN SODIUM 40 MG/0.4 ML SYRINGE SQ SCH (08:27)
[2017-07-04] MEDS: PANTOPRAZOLE SODIUM 40 MG VIAL IV PUSH SCH ×2 (08:27→20:32)
[2017-07-04] MEDS: SODIUM CHLORIDE 0.9% FLUSH 10 ML FLUSH IV FLUSH SCH ×3 (08:28→20:35)
[2017-07-04] MEDS: DOCUSATE SODIUM 100 MG CAP PO SCH ×3 (08:28→20:35)
[2017-07-04] MEDS: FUROSEMIDE 20 MG/2 ML VIAL IV PUSH SCH ×2 (08:28→17:49)
[2017-07-04] MEDS: DULoxetine HCl DR 30 MG CAP PO SCH (08:28)
[2017-07-04] MEDS: LORazepam 2 MG/ML VIAL IV SCH ×3 (08:28→17:49)
[2017-07-04] MEDS: INSULIN ASPART SUPPLEMENTAL SCALE SQ SCH ×4 (08:32→20:33)
[2017-07-04] MEDS: INSULIN DETEMIR 100 UNITS/ML VIAL SQ SCH ×2 (08:33→20:33)
--- NOTE | 2017-07-04 10:40 | HHI.PR ---
Subjective Remarks Patient reports increased pain across upper abdomen today patient also c/o that PT has rearranged her furniture Objective Vitals Vital Signs Date Time Temp Pulse Resp B/P (MAP) Pulse Ox O2 Delivery O2 Flow Rate FiO2 07/04/17 08:17 98.2 81 18 151/87 (108) 94 07/04/17 04:00 97.7 131 20 140/89 (106) 96 07/04/17 04:00 Room Air 07/04/17 00:51 Room Air 07/04/17 00:51 99.2 135 18 142/84 (103) 94 07/03/17 20:38 20 07/03/17 20:00 99.1 125 20 158/91 (113) 96 07/03/17 20:00 124 07/03/17 20:00 Room Air 07/03/17 17:56 95 21 07/03/17 17:21 98.8 113 14 137/85 (102) 07/03/17 13:28 21 07/03/17 12:53 98.7 127 14 127/79 (95) 95 Result Diagram: 07/04/17 0530 07/04/17 0530 Other Results Laboratory Tests Test 07/04/17 05:30 White Blood Count 19.5 TH/MM3 Red Blood Count 3.42 MIL/MM3 Hemoglobin 9.3 GM/DL Hematocrit 29.6 % Mean Corpuscular Volume 86.7 FL Mean Corpuscular Hemoglobin 27.3 PG Mean Corpuscular Hemoglobin Concent 31.5 % Red Cell Distribution Width 15.9 % Platelet Count 322 TH/MM3 Mean Platelet Volume 7.6 FL Neutrophils (%) (Auto) 77.3 % Lymphocytes (%) (Auto) 11.3 % Monocytes (%) (Auto) 10.4 % Eosinophils (%) (Auto) 0.6 % Basophils (%) (Auto) 0.4 % Neutrophils # (Auto) 15.1 TH/MM3 Lymphocytes # (Auto) 2.2 TH/MM3 Monocytes # (Auto) 2.0 TH/MM3 Eosinophils # (Auto) 0.1 TH/MM3 Basophils # (Auto) 0.1 TH/MM3 CBC Comment AUTO DIFF Differential Total Cells Counted 100 Neutrophils % (Manual) 59 % Band Neutrophils % 6 % Lymphocytes % 14 % Monocytes % 8 % Neutrophils # (Manual) 15.2 TH/MM3 Metamyelocytes 10 % Myelocytes 3 % Differential Comment FINAL DIFF MANUAL Platelet Estimate NORMAL Platelet Morphology Comment NORMAL Blood Urea Nitrogen 14 MG/DL Creatinine 0.56 MG/DL Random Glucose 188 MG/DL Calcium Level 8.5 MG/DL Magnesium Level 1.9 MG/DL Sodium Level 135 MEQ/L Potassium Level 4.1 MEQ/L Chloride Level 98 MEQ/L Carbon Dioxide Level 30.7 MEQ/L Anion Gap 6 MEQ/L Estimat Glomerular Filtration Rate 114 ML/MIN Imaging Last Impressions Gastrostomy Tube Placement 06/16/17 0000 Signed Impressions: Service Date/Time: Friday, June 16, 2017 15:58 - CONCLUSION: Uncomplicated gastrostomy tube placement as above. Carl Lamar Jr., MD Chest X-Ray 06/14/17 0000 Signed Impressions: Service Date/Time: Wednesday, June 14, 2017 17:04 - CONCLUSION: Stable chest x-ray with a small to moderate size left pleural effusion with associated volume loss and/or consolidation. Chilango Shaw MD Abdomen X-Ray 06/14/17 0000 Signed Impressions: Service Date/Time: Wednesday, June 14, 2017 13:22 - CONCLUSION: 1. Nasogastric tube distal tip in the gastric body. 2. Stable small to moderate size left pleural effusion. Chilango Shaw MD Abdomen Ultrasound 06/14/17 0000 Signed Impressions: Service Date/Time: Wednesday, June 14, 2017 09:29 - CONCLUSION: Small volume of free fluid is present within the abdomen or pelvis. Chilango Shaw MD Lower Extremity Ultrasound 06/12/17 0000 Signed Impressions: Service Date/Time: Monday, June 12, 2017 14:04 - CONCLUSION: Normal examination. Ron Kim MD Abdomen/Pelvis CT 06/09/17 0000 Signed Impressions: Service Date/Time: Friday, June 09, 2017 12:50 - CONCLUSION: 1. Diffuse abdominal ascites. With omental thickening. Ascites could either be from cirrhotic changes or peritoneal carcinomatosis. 2. No findings to indicate bowel obstruction. 3. Small bilateral effusions with dependent atelectasis. Xavier Kellogg MD Paracentesis 06/04/17 0000 Signed Impressions: Service Date/Time: Sunday, June 04, 2017 14:57 - CONCLUSION: Uncomplicated CT Guided paracentesis with removal of 3.6 L of fluid. Sample was saved and sent to the lab for evaluation. Chilango Shaw MD Abdomen Biopsy CT 06/04/17 0000 Signed Impressions: Service Date/Time: Sunday, June 04, 2017 14:57 - CONCLUSION: Uncomplicated CT guided biopsy of the omentum. Chilango Shaw MD Liver Ultrasound 06/02/17 0000 Signed Impressions: Service Date/Time: Friday, June 02, 2017 23:21 - CONCLUSION: 1. Cirrhosis 2. Possible mass right lobe of the liver. MRI is recommended for further evaluation if clinically indicated. 3. Moderate ascites Mert Paige MD Cyst Biopsy Asp-Paracentesis US 05/31/17 0000 Signed Impressions: Service Date/Time: Wednesday, May 31, 2017 16:43 - CONCLUSION: Uncomplicated ultrasound guided paracentesis. Minimal fluid aspirated. Jonathan Adame MD Objective Remarks General: NAD, AAOx3. 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 - Pt presented to the ED with complaints of worsening abdominal pain and distension. She states that she has been having issues with abd pain for the last 2 months. For the last 2 weeks she has been having increased generalized abd pain and distension which has been significantly worse over the last 2 days. - CT Abd/pelvis revealed ascites appears complex and new from 03/23/17. - She was previously seen in the ED on 03/[address] abd/pelvis at that time noted an 18mm lesion in the right lobe of the liver, with features favoring hemangioma. She was sent for followup as an outpt with GI. She had an MRI Abdomen W/O Contrast (05/13/17) with benign hemangioma in the caudate lobe of the liver corresponding to the lesion identified on CT otherwise normal examination. - Outpt workup with GI in April 2017 revealed positive ASMA, positive RACHELE, and RODRIGUEZ FibroSURE with fibrosis score of 0.04 (No fibrosis), Steatosis score of 0.78/S3 (marked or severe steatosis). Viral Hepatitis was negative. IgG subclasses were WNL, LKM Ab negative, AMA negative, Iron studies WNL, Ferritin 160 (slightly elevated), Ceruloplasmin WNL. Labs on 05/12/17 with AST 54, ALT 81, AlkPhos 92, Tbili 0.8 , DBili 0.2. autoimmune hepatitis was questioned. - Pt had diagnostic paracentesis on 05/31 with removal of 15cc of fluid - Cell count for the fluid noted WBC count 1657 - Fluid culture with no growth - cytology --> atypical epithelioid cells suspicious for malignancy - Repeat paracentesis 06/04/17 - 3,600ml of ascites removed - Ascitic Cell count: WBC 494, RBC 6525 - Fluid culture shows ngtd - cytology -->suspicious for malignant cells - Pt underwent Omental Biopsy (06/04/17) --> path suspicious for signet cell adenoca - EGD 06/11 --> antral ulcerated mass with near obstruction of outlet. 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 - Heme-Onc, Dr. Davis, is following. - She was started on palliative systemic therapy with FOLFOX to help debulk her tumor to relieve some of her gastric symptoms of obstruction - She received 2 cycles 06/12/2017, 06/26/17 - IR placed G tube on 06/16. removed NGT on 06/17 - PICC line placed 06/11 and pt is on TPN - G tube to gravity, G tube dependent - Pt seems to now be tolerating a small amount of PO intake, observe. Hopefully this continues to improve & pt is able to tolerate having her G-tube clamped for longer periods of time. - Pt is TPN dependent for nutritional support - Pt's blood sugar are now stable with NO basal insulin added to TPN; BID Levemir; SSI - On 06/23, G-tube site appeared infected but this has been improving. - Wound Culture (06/23) --> mixed anaerobs - IV Cefepime (06/23 - 06/29) and topical Bactroban (06/23 - 06/01) - Pt's pain being addressed with Fentanyl transdermal and prn IV Dilaudid - increase fentanyl to 125mcg q3d (06/29) - pt somewhat confused and groggy. Will decrease fentanyl to 100mcg (07/03), observe -(07/04) patient having more pain today encouraged use of PRN Dilaudid, will continue fentanyl 100mcg an observe - Pt received IV dilaudid for breakthrough pain three times 07/02 & once since [place] 07/03 - Case discussed at length with Dr. Davis (07/02) - some concern that pt is becoming oversedated. We decreased the scheduled ativan to 0.25mg TID (previously 0.5mg TID) - Pt seen by Radiation Oncology (07/02), Dr. Blankenship - Dr. Blankenship will arrange for Radiation for next week, see his (07/02/17) note - Plan for palliative radiation treatment to the gastric body and gastric outlet region. simulation on Wednesday with treatment starting likely on Wednesday. - Daily PT - DNR - DVT prophylaxis with Lovenox - Pt NOT making any significant clinical improvement following 2 rounds of chemotherapy. Pt's overall prognosis remains poor. - Hospice would be appropriate, but pt does NOT appear ready for hospice at this point and requesting continued aggressive treatments. (2) Sinus tachycardia ICD Codes: R00.0 - Tachycardia, unspecified Status: Acute Plan: - Pt developed sinus tachycardia with rates into the 140's, felt to likely be secondary to physiological response related to her malignant/obstructive process and stopping her chronic bb. - IV metoprolol for rate control - metoprolol PO attempted- patient's HR did not respond (3) Abdominal pain ICD Codes: R10.9 - Unspecified abdominal pain Status: Acute Plan: - See above. (4) Ascites ICD Codes: R18.8 - Other ascites Status: Acute Plan: - See above - Pts last paracentesis was on 06/04 with removal of 3600cc of ascetic fluid - continue IV Lasix - At this time pt does have some ascites that could be drained but she wants to hold off on repeat paracentesis as the last one was very painful per the pt - Will readdress in the next 1-2 days. (5) Hypertension ICD Codes: I10 - Essential (primary) hypertension Status: Chronic Plan: - See above (6) Hyperlipidemia ICD Codes: E78.5 - Hyperlipidemia, unspecified Status: Chronic Plan: - Statin was held as an outpt (7) CAD (coronary artery disease) ICD Codes: I25.10 - Atherosclerotic heart disease of [place] coronary artery without angina pectoris Status: Chronic Plan: - Pt with hx of CAD and NSTEMI in 2010 s/p stent in the RCA (8) Tobacco abuse ICD Codes: Z72.0 - Tobacco use Status: Chronic Assessment and Plan Patient examined. Assessment and plan formulated with Carla Dey PA-C. I agree with the above. Problem Qualifiers (1) Abdominal pain: Qualified Codes: R10.84 - Generalized abdominal pain (2) Ascites: Qualified Codes: R18.8 - Other ascites (3) Hypertension: Qualified Codes: I10 - Essential (primary) hypertension Carla Dey Jul 04, 2017 10:40 Xu Hoover DO Jul 09, 2017 13:08
[2017-07-04] MEDS: HYDROmorphone HCL PF 1 MG/ML VIAL IV PUSH PRN ×2 (11:20→16:34)
[2017-07-04] MEDS: SODIUM ACETATE IV-CENTRAL SCH ×9 (20:33)
[2017-07-04] MEDS: SODIUM CHLORIDE IV-CENTRAL SCH ×9 (20:33)
[2017-07-04] MEDS: [UNRECOGNIZED DRUG - OTHER] IV-CENTRAL SCH ×9 (20:33)
[2017-07-04] MEDS: ASPIRIN EC 81 MG TABEC PO SCH (20:35)
[2017-07-04] MEDS: FAT EMULSION 20% INJ 250 ML (@10 mls/hr) IV-CENTRAL SCH (22:07)
[2017-07-05] VITALS (7 sets, daily range): BP systolic 115–162; BP diastolic 78–99; PULSE 123–138; RESP 14–18; TEMP 98.2–99.1; O2SAT 94–96
[2017-07-05] MEDS: METOPROLOL TARTRATE 5 MG/5 ML VIAL IV PUSH SCH ×2 (04:50)
[2017-07-05] MEDS: FUROSEMIDE 20 MG/2 ML VIAL IV PUSH SCH ×2 (08:27→16:48)
[2017-07-05] MEDS: LORazepam 2 MG/ML VIAL IV SCH ×2 (08:31→18:11)
[2017-07-05] MEDS: HYDROmorphone HCL PF 1 MG/ML VIAL IV PUSH PRN ×4 (08:39→21:32)
[2017-07-05] MEDS: SODIUM CHLORIDE 0.9% FLUSH 10 ML FLUSH IV FLUSH SCH ×3 (08:39→21:31)
[2017-07-05] MEDS: ENOXAPARIN SODIUM 40 MG/0.4 ML SYRINGE SQ SCH (08:41)
--- NOTE | 2017-07-05 08:53 | HHI.PR ---
Subjective Remarks just waking up. no complaints. Objective Vitals nad heart reg.tachy lung diminished bases abd peg/bs ext no pitting. Vital Signs Date Time Temp Pulse Resp B/P (MAP) Pulse Ox O2 Delivery O2 Flow Rate FiO2 07/05/17 04:40 98.8 131 16 133/83 (100) 94 07/05/17 00:31 99.1 136 16 115/83 (94) 95 07/04/17 21:00 136 07/04/17 21:00 Room Air 07/04/17 20:11 99.4 135 14 139/83 (101) 96 07/04/17 18:22 132 07/04/17 16:46 98.8 119 18 133/78 (96) 94 07/04/17 14:50 88 07/04/17 12:10 98.3 136 18 145/82 (103) 95 Result Diagram: 07/04/17 0530 07/04/17 0530 Imaging Last Impressions Gastrostomy Tube Placement 06/16/17 0000 Signed Impressions: Service Date/Time: Friday, June 16, 2017 15:58 - CONCLUSION: Uncomplicated gastrostomy tube placement as above. Carl Lamar Jr., MD Chest X-Ray 06/14/17 0000 Signed Impressions: Service Date/Time: Wednesday, June 14, 2017 17:04 - CONCLUSION: Stable chest x-ray with a small to moderate size left pleural effusion with associated volume loss and/or consolidation. Chilango Shaw MD Abdomen X-Ray 06/14/17 0000 Signed Impressions: Service Date/Time: Wednesday, June 14, 2017 13:22 - CONCLUSION: 1. Nasogastric tube distal tip in the gastric body. 2. Stable small to moderate size left pleural effusion. Chilango Shaw MD Abdomen Ultrasound 06/14/17 0000 Signed Impressions: Service Date/Time: Wednesday, June 14, 2017 09:29 - CONCLUSION: Small volume of free fluid is present within the abdomen or pelvis. Chilango Shaw MD Lower Extremity Ultrasound 06/12/17 0000 Signed Impressions: Service Date/Time: Monday, June 12, 2017 14:04 - CONCLUSION: Normal examination. Ron Kim MD Abdomen/Pelvis CT 06/09/17 0000 Signed Impressions: Service Date/Time: Friday, June 09, 2017 12:50 - CONCLUSION: 1. Diffuse abdominal ascites. With omental thickening. Ascites could either be from cirrhotic changes or peritoneal carcinomatosis. 2. No findings to indicate bowel obstruction. 3. Small bilateral effusions with dependent atelectasis. Xavier Kellogg MD Paracentesis 06/04/17 0000 Signed Impressions: Service Date/Time: Sunday, June 04, 2017 14:57 - CONCLUSION: Uncomplicated CT Guided paracentesis with removal of 3.6 L of fluid. Sample was saved and sent to the lab for evaluation. Chilango Shaw MD Abdomen Biopsy CT 06/04/17 0000 Signed Impressions: Service Date/Time: Sunday, June 04, 2017 14:57 - CONCLUSION: Uncomplicated CT guided biopsy of the omentum. Chilango Shaw MD Liver Ultrasound 06/02/17 0000 Signed Impressions: Service Date/Time: Friday, June 02, 2017 23:21 - CONCLUSION: 1. Cirrhosis 2. Possible mass right lobe of the liver. MRI is recommended for further evaluation if clinically indicated. 3. Moderate ascites Mert Paige MD Cyst Biopsy Asp-Paracentesis US 05/31/17 0000 Signed Impressions: Service Date/Time: Wednesday, May 31, 2017 16:43 - CONCLUSION: Uncomplicated ultrasound guided paracentesis. Minimal fluid aspirated. 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 - Pt presented to the ED with complaints of worsening abdominal pain and distension. She states that she has been having issues with abd pain for the last 2 months. For the last 2 weeks she has been having increased generalized abd pain and distension which has been significantly worse over the last 2 days. - CT Abd/pelvis revealed ascites appears complex and new from 03/23/17. - She was previously seen in the ED on 03/[address] abd/pelvis at that time noted an 18mm lesion in the right lobe of the liver, with features favoring hemangioma. She was sent for followup as an outpt with GI. She had an MRI Abdomen W/O Contrast (05/13/17) with benign hemangioma in the caudate lobe of the liver corresponding to the lesion identified on CT otherwise normal examination. - Outpt workup with GI in April 2017 revealed positive ASMA, positive RACHELE, and RODRIGUEZ FibroSURE with fibrosis score of 0.04 (No fibrosis), Steatosis score of 0.78/S3 (marked or severe steatosis). Viral Hepatitis was negative. IgG subclasses were WNL, LKM Ab negative, AMA negative, Iron studies WNL, Ferritin 160 (slightly elevated), Ceruloplasmin WNL. Labs on 05/12/17 with AST 54, ALT 81, AlkPhos 92, Tbili 0.8 , DBili 0.2. autoimmune hepatitis was questioned. - Pt had diagnostic paracentesis on 05/31 with removal of 15cc of fluid - Cell count for the fluid noted WBC count 1657 - Fluid culture with no growth - cytology --> atypical epithelioid cells suspicious for malignancy - Repeat paracentesis 06/04/17 - 3,600ml of ascites removed - Ascitic Cell count: WBC 494, RBC 6525 - Fluid culture shows ngtd - cytology -->suspicious for malignant cells - Pt underwent Omental Biopsy (06/04/17) --> path suspicious for signet cell adenoca - EGD 06/11 --> antral ulcerated mass with near obstruction of outlet. 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 - Heme-Onc, Dr. Davis, is following. - She was started on palliative systemic therapy with FOLFOX to help debulk her tumor to relieve some of her gastric symptoms of obstruction - She received 2 cycles 06/12/2017, 06/26/17 - IR placed G tube on 06/16. removed NGT on 06/17 - PICC line placed 06/11 and pt is on TPN - G tube to gravity, G tube dependent - Pt seems to now be tolerating a small amount of PO intake, observe. Hopefully this continues to improve & pt is able to tolerate having her G-tube clamped for longer periods of time. - Pt is TPN dependent for nutritional support - Pt's blood sugar are now stable with NO basal insulin added to TPN; BID Levemir; SSI - On 06/23, G-tube site appeared infected but this has been improving. - Wound Culture (06/23) --> mixed anaerobs - IV Cefepime (06/23 - 06/29) and topical Bactroban (06/23 - 06/01) - Pt's pain being addressed with Fentanyl transdermal and prn IV Dilaudid - increase fentanyl to 125mcg q3d (06/29) - pt somewhat confused and groggy. decrease fentanyl to 100mcg (07/03), -scheduled ativan to 0.25mg TID (previously 0.5mg TID) - Pt seen by Radiation Oncology (07/02), Dr. Blankenship - Dr. Blankenship will arrange for Palliative Radiation for this week. simulation today - Daily PT - DNR - DVT prophylaxis with Lovenox - cont iv lasix and monitor bmp -attempt conversion of iv to po lopressor again -cont current tpn and basal/ssi rx.. (2) Sinus tachycardia ICD Codes: R00.0 - Tachycardia, unspecified Status: Acute Plan: - Pt developed sinus tachycardia with rates into the 140's, felt to likely be secondary to physiological response related to her malignant/obstructive process and stopping her chronic bb. - IV metoprolol for rate control - metoprolol PO attempted- patient's HR did not respond (3) Abdominal pain ICD Codes: R10.9 - Unspecified abdominal pain Status: Acute Plan: - See above. (4) Ascites ICD Codes: R18.8 - Other ascites Status: Acute Plan: - See above - Pts last paracentesis was on 06/04 with removal of 3600cc of ascetic fluid - continue IV Lasix - At this time pt does have some ascites that could be drained but she wants to hold off on repeat paracentesis as the last one was very painful per the pt - Will readdress in the next 1-2 days. (5) Hypertension ICD Codes: I10 - Essential (primary) hypertension Status: Chronic Plan: - See above (6) Hyperlipidemia ICD Codes: E78.5 - Hyperlipidemia, unspecified Status: Chronic Plan: - Statin was held as an outpt (7) CAD (coronary artery disease) ICD Codes: I25.10 - Atherosclerotic heart disease of [place] coronary artery without angina pectoris Status: Chronic Plan: - Pt with hx of CAD and NSTEMI in 2010 s/p stent in the RCA (8) Tobacco abuse ICD Codes: Z72.0 - Tobacco use Status: Chronic Problem Qualifiers (1) Abdominal pain: Qualified Codes: R10.84 - Generalized abdominal pain (2) Ascites: Qualified Codes: R18.8 - Other ascites (3) Hypertension: Qualified Codes: I10 - Essential (primary) hypertension Zach Briceno MD Jul 05, 2017 08:53
[2017-07-05] MEDS: PANTOPRAZOLE SODIUM 40 MG VIAL IV PUSH SCH ×2 (08:59→21:31)
[2017-07-05] MEDS: METOPROLOL TARTRATE 100 MG TAB G-TUBE SCH ×2 (09:00→21:00)
[2017-07-05] MEDS ORDERED: REMOVE OLD PATCH T-DERMAL SCH ×2 (09:00)
[2017-07-05] MEDS: INSULIN ASPART SUPPLEMENTAL SCALE SQ SCH ×3 (09:13→21:56)
[2017-07-05] MEDS: DULoxetine HCl DR 30 MG CAP PO SCH (09:13)
[2017-07-05] MEDS: INSULIN DETEMIR 100 UNITS/ML VIAL SQ SCH ×2 (09:13→21:33)
[2017-07-05] MEDS: DOCUSATE SODIUM 100 MG CAP PO SCH ×2 (09:13→21:30)
[2017-07-05] MEDS: METOPROLOL TARTRATE 5 MG/5 ML VIAL IV PUSH PRN ×2 (18:08→21:57)
[2017-07-05] MEDS: ASPIRIN EC 81 MG TABEC PO SCH (21:00)
[2017-07-05] MEDS: FAT EMULSION 20% INJ 250 ML (@10 mls/hr) IV-CENTRAL SCH (21:33)
[2017-07-05] MEDS: SODIUM CHLORIDE IV-CENTRAL SCH ×9 (21:33)
[2017-07-05] MEDS: SODIUM ACETATE IV-CENTRAL SCH ×9 (21:33)
[2017-07-05] MEDS: [UNRECOGNIZED DRUG - OTHER] IV-CENTRAL SCH ×9 (21:33)
[2017-07-05] MEDS: ONDANSETRON HCL 4 MG/2 ML VIAL IV PUSH PRN (21:56)
--- NOTE | 2017-07-05 23:42 | PD.ONC.PN ---
Subjective Subjective Remarks Resting comfortably in bed. Sister and son at bedside. Objective Data Date Time Temp Pulse Resp B/P (MAP) Pulse Ox O2 Delivery O2 Flow Rate FiO2 07/05/17 21:30 Room Air 07/05/17 21:30 99.0 138 18 155/94 (114) 96 07/05/17 19:03 21 07/05/17 17:02 99.0 134 16 162/99 (120) 95 07/05/17 12:37 98.2 130 14 150/88 (108) 07/05/17 08:00 94 Room Air 07/05/17 08:00 98.8 130 18 136/78 (97) 07/05/17 08:00 130 07/05/17 04:40 98.8 131 16 133/83 (100) 94 07/05/17 00:31 99.1 136 16 115/83 (94) 95 Result Diagram: 07/04/17 0530 07/04/17 0530 Administered Medications Medications (Trade) Dose Ordered Sig/Nelda Route PRN Reason Start Time Stop Time Status Last Admin Dose Admin Sodium Chloride (NS Flush) 2 ml UNSCH PRN IV FLUSH FLUSH AFTER USING IV ACCESS 05/31/17 16:00 06/28/17 03:49 Sodium Chloride (NS Flush) 2 ml BID IV FLUSH 05/31/17 21:00 07/05/17 21:31 Aspirin (Ecotrin Ec) 81 mg HS PO 05/31/17 21:00 07/01/17 19:59 Miscellaneous (Pill Splitter) 1 ea UNSCH PRN OTHER SEE LABEL COMMENTS 05/31/17 21:00 06/12/17 09:05 Ondansetron HCl (Zofran Inj) 4 mg Q4H PRN IV PUSH NAUSEA 06/07/17 21:00 07/05/17 21:56 Pantoprazole Sodium (Protonix Inj) 40 mg Q12H IV PUSH 06/08/17 21:00 07/05/17 21:31 Fat Emulsion Intravenous 250 ml @ 10 mls/hr Q24H IV-CENTRAL 06/10/17 20:00 07/05/17 21:33 Phenol (Chloraseptic [place]) 2 spray Q2H PRN OROPHARYNG throat pain 06/11/17 12:00 06/12/17 02:47 Sodium Chloride (NS Flush) See Protocol DAILY IV FLUSH 06/12/17 09:00 07/05/17 09:00 Heparin Sodium (Porcine) (Heparin Central Flush) See Protocol DAILY IV FLUSH 06/12/17 09:00 07/03/17 10:15 Heparin Sodium (Porcine) (Heparin Central Flush) See Protocol UNSCH PRN IV FLUSH SEE PROTOCOL TABLE 06/11/17 12:30 06/30/17 06:44 Sodium Chloride (NS Flush) UNSCH PRN IV FLUSH SEE PROTOCOL TABLE 06/11/17 12:30 06/30/17 06:44 Enoxaparin Sodium (Lovenox Inj) 40 mg Q24H SQ 06/13/17 08:15 Future hold 07/05/17 08:41 Lorazepam (Ativan Inj) 0.5 mg Q6H PRN IV PUSH nausea/anxiety 06/13/17 14:45 07/02/17 04:09 Insulin Detemir (Levemir Inj) 30 units Q12HR SQ 06/18/17 09:00 07/05/17 21:33 Insulin Aspart (NovoLOG SUPPLEMENTAL SCALE) 1 ACHS SLIDING SCALE SQ 06/18/17 08:00 07/05/17 21:56 Hydromorphone HCl (Dilaudid Pf Inj) 1 mg Q2H PRN IV PUSH pain 3-10 06/19/17 09:00 07/05/17 21:32 Sodium Chloride 11 meq/Sodium Acetate 59 meq/ Potassium Chloride 120 meq/ Sodium Phosphate 40 meq/Magnesium Chloride 10 meq/ Calcium Chloride 9 meq/ Multivitamins 10 ml/Folic Acid 1 mg/Amino Acids/ Dextrose 2,124.1437 ml @ 75 mls/hr Q24H IV-CENTRAL 06/19/17 20:00 07/05/17 21:33 Docusate Sodium (Colace) 100 mg BID PO 06/21/17 21:00 07/05/17 21:30 Furosemide (Lasix Inj) 20 mg BID@18 IV PUSH 06/22/17 09:00 07/05/17 16:48 Duloxetine HCl (Cymbalta Dr) 30 mg DAILY PO 07/01/17 09:00 07/05/17 09:13 Lorazepam (Ativan Inj) 0.25 mg TID IV 07/03/17 09:00 07/05/17 18:11 Fentanyl (Duragesic 100 Mcg Patch.72 Hr) 1 patch Q3D T-DERMAL 07/03/17 12:00 07/03/17 12:58 Metoprolol Tartrate (Lopressor Inj) 5 mg Q4H PRN IV PUSH heart rate sustained above 120 07/05/17 12:00 07/05/17 21:57 Objective Remarks GENERAL: frail lady in no distress SKIN: Warm and dry. HEAD: Normocephalic. EYES: No scleral icterus. No injection or drainage. NECK: Supple, trachea midline. No JVD or lymphadenopathy. LYMPHATIC: No adenopathy. CARDIOVASCULAR: Regular rate and rhythm without murmurs. RESPIRATORY: Breath sounds equal bilaterally. No accessory muscle use. GASTROINTESTINAL: distended EXTREMITIES: No cyanosis, or edema. MUSCULOSKELETAL: Adequate muscle tone. NEUROLOGICAL: No obvious focal deficit. Awake, alert, and oriented x3. PSYCHIATRIC: drowsy, recently received ativan Assessment/Plan Assessment Ms. Vicente is a 52-year-old female with a 2.5 month history of progressive epigastric pain, nausea, vomiting and abdominal distension. She was noted on imaging studies on 06/10/2017 to have omental thickening and ascites. Omental biopsy revealed findings highly concerning for a high-grade adenocarcinoma with signet cell features. An EGD ensued and the EGD revealed an antral mass involving the gastric wall associated with ulceration and thickening. 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 Her major complaints are that of abdominal distension, pain and nausea. Plan 1. Metastatic Gastric Ca with peritoneal carcinomatosis. she is status post two cycles of FOLFOX chemotherapy without evidence of clinical improvement. Plan for palliative radiation treatment to the gastric body and gastric outlet region under the direction of Dr. Blankenship. 2. Gastric outlet obstruction: low intermittent suction. Limited oral intake on TPN 3. Pain: controlled with Fentanyl patch + IV Dilaudid. Sahara Mckinnon MD Jul 05, 2017 23:42
[2017-07-06] VITALS (11 sets, daily range): BP systolic 118–147; BP diastolic 78–86; PULSE 117–137; RESP 16–22; TEMP 97.9–98.9; O2SAT 92–96
[2017-07-06] MEDS: HYDROmorphone HCL PF 1 MG/ML VIAL IV PUSH PRN ×7 (00:17→23:31)
[2017-07-06] MEDS: METOPROLOL TARTRATE 5 MG/5 ML VIAL IV PUSH PRN ×3 (03:08→18:09)
[2017-07-06 07:10] LABS: BICARBONATE 28.7 MEQ/L (21.0-32.0); POTASSIUM 4.2 MEQ/L (3.5-5.1)
--- NOTE | 2017-07-06 08:16 | HHI.PR ---
Subjective Remarks no new complaints Objective Vitals heart irreg lung diiminished bases abd peg/liws ext no pitting Vital Signs Date Time Temp Pulse Resp B/P (MAP) Pulse Ox O2 Delivery O2 Flow Rate FiO2 07/06/17 07:00 131 07/06/17 03:11 98.1 137 22 142/83 (102) 93 07/06/17 00:15 98.9 129 20 128/85 (99) 94 07/06/17 00:00 129 07/05/17 21:30 Room Air 07/05/17 21:30 99.0 138 18 155/94 (114) 96 07/05/17 20:00 123 07/05/17 19:03 21 07/05/17 17:02 99.0 134 16 162/99 (120) 95 07/05/17 12:37 98.2 130 14 150/88 (108) Result Diagram: 07/04/17 0530 07/06/17 0625 Imaging Last Impressions Gastrostomy Tube Placement 06/16/17 0000 Signed Impressions: Service Date/Time: Friday, June 16, 2017 15:58 - CONCLUSION: Uncomplicated gastrostomy tube placement as above. Carl Lamar Jr., MD Chest X-Ray 06/14/17 0000 Signed Impressions: Service Date/Time: Wednesday, June 14, 2017 17:04 - CONCLUSION: Stable chest x-ray with a small to moderate size left pleural effusion with associated volume loss and/or consolidation. Chilango Shaw MD Abdomen X-Ray 06/14/17 0000 Signed Impressions: Service Date/Time: Wednesday, June 14, 2017 13:22 - CONCLUSION: 1. Nasogastric tube distal tip in the gastric body. 2. Stable small to moderate size left pleural effusion. Chilango Shaw MD Abdomen Ultrasound 06/14/17 0000 Signed Impressions: Service Date/Time: Wednesday, June 14, 2017 09:29 - CONCLUSION: Small volume of free fluid is present within the abdomen or pelvis. Chilango Shaw MD Lower Extremity Ultrasound 06/12/17 0000 Signed Impressions: Service Date/Time: Monday, June 12, 2017 14:04 - CONCLUSION: Normal examination. Ron Kim MD Abdomen/Pelvis CT 06/09/17 0000 Signed Impressions: Service Date/Time: Friday, June 09, 2017 12:50 - CONCLUSION: 1. Diffuse abdominal ascites. With omental thickening. Ascites could either be from cirrhotic changes or peritoneal carcinomatosis. 2. No findings to indicate bowel obstruction. 3. Small bilateral effusions with dependent atelectasis. Xavier Kellogg MD Paracentesis 06/04/17 0000 Signed Impressions: Service Date/Time: Sunday, June 04, 2017 14:57 - CONCLUSION: Uncomplicated CT Guided paracentesis with removal of 3.6 L of fluid. Sample was saved and sent to the lab for evaluation. Chilango Shaw MD Abdomen Biopsy CT 06/04/17 0000 Signed Impressions: Service Date/Time: Sunday, June 04, 2017 14:57 - CONCLUSION: Uncomplicated CT guided biopsy of the omentum. Chilango Shaw MD Liver Ultrasound 06/02/17 0000 Signed Impressions: Service Date/Time: Friday, June 02, 2017 23:21 - CONCLUSION: 1. Cirrhosis 2. Possible mass right lobe of the liver. MRI is recommended for further evaluation if clinically indicated. 3. Moderate ascites Mert Paige MD Cyst Biopsy Asp-Paracentesis US 05/31/17 0000 Signed Impressions: Service Date/Time: Wednesday, May 31, 2017 16:43 - CONCLUSION: Uncomplicated ultrasound guided paracentesis. Minimal fluid aspirated. 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 - Pt presented to the ED with complaints of worsening abdominal pain and distension. She states that she has been having issues with abd pain for the last 2 months. For the last 2 weeks she has been having increased generalized abd pain and distension which has been significantly worse over the last 2 days. - CT Abd/pelvis revealed ascites appears complex and new from 03/23/17. - She was previously seen in the ED on 03/[address] abd/pelvis at that time noted an 18mm lesion in the right lobe of the liver, with features favoring hemangioma. She was sent for followup as an outpt with GI. She had an MRI Abdomen W/O Contrast (05/13/17) with benign hemangioma in the caudate lobe of the liver corresponding to the lesion identified on CT otherwise normal examination. - Outpt workup with GI in April 2017 revealed positive ASMA, positive RACHELE, and RODRIGUEZ FibroSURE with fibrosis score of 0.04 (No fibrosis), Steatosis score of 0.78/S3 (marked or severe steatosis). Viral Hepatitis was negative. IgG subclasses were WNL, LKM Ab negative, AMA negative, Iron studies WNL, Ferritin 160 (slightly elevated), Ceruloplasmin WNL. Labs on 05/12/17 with AST 54, ALT 81, AlkPhos 92, Tbili 0.8 , DBili 0.2. autoimmune hepatitis was questioned. - Pt had diagnostic paracentesis on 05/31 with removal of 15cc of fluid - Cell count for the fluid noted WBC count 1657 - Fluid culture with no growth - cytology --> atypical epithelioid cells suspicious for malignancy - Repeat paracentesis 06/04/17 - 3,600ml of ascites removed - Ascitic Cell count: WBC 494, RBC 6525 - Fluid culture shows ngtd - cytology -->suspicious for malignant cells - Pt underwent Omental Biopsy (06/04/17) --> path suspicious for signet cell adenoca - EGD 06/11 --> antral ulcerated mass with near obstruction of outlet. 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 - Heme-Onc, Dr. Davis, is following. - She was started on palliative systemic therapy with FOLFOX to help debulk her tumor to relieve some of her gastric symptoms of obstruction - She received 2 cycles 06/12/2017, 06/26/17 - IR placed G tube on 06/16. removed NGT on 06/17 - PICC line placed 06/11 and pt is on TPN - G tube to gravity, G tube dependent - Pt seems to now be tolerating a small amount of PO intake, observe. Hopefully this continues to improve & pt is able to tolerate having her G-tube clamped for longer periods of time. - Pt is TPN dependent for nutritional support - Pt's blood sugar are now stable with NO basal insulin added to TPN; BID Levemir; SSI - On 06/23, G-tube site appeared infected but this has been improving. - Wound Culture (06/23) --> mixed anaerobs - IV Cefepime (06/23 - 06/29) and topical Bactroban (06/23 - 06/01) - Pt's pain being addressed with Fentanyl transdermal and prn IV Dilaudid - increase fentanyl to 125mcg q3d (06/29) - pt somewhat confused and groggy. decrease fentanyl to 100mcg (07/03), -scheduled ativan to 0.25mg TID (previously 0.5mg TID) - Pt seen by Radiation Oncology (07/02), Dr. Blankenship - Dr. Blankenship will arrange for Palliative Radiation for this week. - Daily PT - DNR - DVT prophylaxis with Lovenox - cont iv lasix and monitor bmp -attempted conversion of iv to po lopressor again....med not given..discuss with RN -cont current tpn and basal/ssi rx.. (2) Sinus tachycardia ICD Codes: R00.0 - Tachycardia, unspecified Status: Acute Plan: - Pt developed sinus tachycardia with rates into the 140's, felt to likely be secondary to physiological response related to her malignant/obstructive process and stopping her chronic bb. - IV metoprolol for rate control - metoprolol PO attempted- patient's HR did not respond (3) Abdominal pain ICD Codes: R10.9 - Unspecified abdominal pain Status: Acute Plan: - See above. (4) Ascites ICD Codes: R18.8 - Other ascites Status: Acute Plan: - See above - Pts last paracentesis was on 06/04 with removal of 3600cc of ascetic fluid - continue IV Lasix - At this time pt does have some ascites that could be drained but she wants to hold off on repeat paracentesis as the last one was very painful per the pt - Will readdress in the next 1-2 days. (5) Hypertension ICD Codes: I10 - Essential (primary) hypertension Status: Chronic Plan: - See above (6) Hyperlipidemia ICD Codes: E78.5 - Hyperlipidemia, unspecified Status: Chronic Plan: - Statin was held as an outpt (7) CAD (coronary artery disease) ICD Codes: I25.10 - Atherosclerotic heart disease of [place] coronary artery without angina pectoris Status: Chronic Plan: - Pt with hx of CAD and NSTEMI in 2010 s/p stent in the RCA (8) Tobacco abuse ICD Codes: Z72.0 - Tobacco use Status: Chronic Problem Qualifiers (1) Abdominal pain: Qualified Codes: R10.84 - Generalized abdominal pain (2) Ascites: Qualified Codes: R18.8 - Other ascites (3) Hypertension: Qualified Codes: I10 - Essential (primary) hypertension Zach Briceno MD Jul 06, 2017 08:16
[2017-07-06] MEDS: INSULIN DETEMIR 100 UNITS/ML VIAL SQ SCH ×2 (08:45→21:00)
[2017-07-06] MEDS: INSULIN ASPART SUPPLEMENTAL SCALE SQ SCH ×4 (08:45→21:18)
[2017-07-06] MEDS: DULoxetine HCl DR 30 MG CAP PO SCH (08:47)
[2017-07-06] MEDS: PANTOPRAZOLE SODIUM 40 MG VIAL IV PUSH SCH ×2 (08:47→21:17)
[2017-07-06] MEDS: DOCUSATE SODIUM 100 MG CAP PO SCH ×2 (08:47→21:17)
[2017-07-06] MEDS: ENOXAPARIN SODIUM 40 MG/0.4 ML SYRINGE SQ SCH (08:47)
[2017-07-06] MEDS: SODIUM CHLORIDE 0.9% FLUSH 10 ML FLUSH IV FLUSH SCH ×3 (08:52→21:18)
[2017-07-06] MEDS: METOPROLOL TARTRATE 100 MG TAB G-TUBE SCH ×2 (08:52→21:17)
[2017-07-06] MEDS: FUROSEMIDE 20 MG/2 ML VIAL IV PUSH SCH ×3 (10:05→19:19)
--- NOTE | 2017-07-06 10:21 | PD.ONC.PN ---
Subjective Subjective Remarks Afebrile overnight. Continues to have pain requiring IV Dilaudid. States she wishes she could take the Dilaudid and her anxiety medication together, but they make her too drowsy. Tolerating small amounts of PO at a time when G-tube is clamped. Objective Data Date Time Temp Pulse Resp B/P (MAP) Pulse Ox O2 Delivery O2 Flow Rate FiO2 07/06/17 09:08 Room Air 07/06/17 08:26 97.9 134 18 138/86 (103) 94 07/06/17 07:00 131 07/06/17 03:11 98.1 137 22 142/83 (102) 93 07/06/17 00:15 98.9 129 20 128/85 (99) 94 07/06/17 00:00 129 07/05/17 21:30 Room Air 07/05/17 21:30 99.0 138 18 155/94 (114) 96 07/05/17 20:00 123 07/05/17 19:03 21 07/05/17 17:02 99.0 134 16 162/99 (120) 95 07/05/17 12:37 98.2 130 14 150/88 (108) 07/06/17 07/06/17 07/06/17 07:00 15:00 23:00 Intake Total 240 ml Output Total 1000 ml Balance -760 ml Result Diagram: 07/04/17 0530 07/06/17 0625 Laboratory Results Laboratory Tests Test 07/06/17 06:25 Blood Urea Nitrogen 15 MG/DL Creatinine 0.57 MG/DL Random Glucose 255 MG/DL Calcium Level 8.4 MG/DL Sodium Level 134 MEQ/L Potassium Level 4.2 MEQ/L Chloride Level 98 MEQ/L Carbon Dioxide Level 28.7 MEQ/L Anion Gap 7 MEQ/L Estimat Glomerular Filtration Rate 111 ML/MIN Administered Medications Medications (Trade) Dose Ordered Sig/Nelda Route PRN Reason Start Time Stop Time Status Last Admin Dose Admin Sodium Chloride (NS Flush) 2 ml UNSCH PRN IV FLUSH FLUSH AFTER USING IV ACCESS 05/31/17 16:00 06/28/17 03:49 Sodium Chloride (NS Flush) 2 ml BID IV FLUSH 05/31/17 21:00 07/06/17 09:01 Aspirin (Ecotrin Ec) 81 mg HS PO 05/31/17 21:00 07/01/17 19:59 Miscellaneous (Pill Splitter) 1 ea UNSCH PRN OTHER SEE LABEL COMMENTS 05/31/17 21:00 06/12/17 09:05 Ondansetron HCl (Zofran Inj) 4 mg Q4H PRN IV PUSH NAUSEA 06/07/17 21:00 07/05/17 21:56 Pantoprazole Sodium (Protonix Inj) 40 mg Q12H IV PUSH 06/08/17 21:00 07/06/17 08:47 Fat Emulsion Intravenous 250 ml @ 10 mls/hr Q24H IV-CENTRAL 06/10/17 20:00 07/05/17 21:33 Phenol (Chloraseptic [place]) 2 spray Q2H PRN OROPHARYNG throat pain 06/11/17 12:00 06/12/17 02:47 Sodium Chloride (NS Flush) See Protocol DAILY IV FLUSH 06/12/17 09:00 07/06/17 08:52 Heparin Sodium (Porcine) (Heparin Central Flush) See Protocol DAILY IV FLUSH 06/12/17 09:00 07/03/17 10:15 Heparin Sodium (Porcine) (Heparin Central Flush) See Protocol UNSCH PRN IV FLUSH SEE PROTOCOL TABLE 06/11/17 12:30 06/30/17 06:44 Sodium Chloride (NS Flush) UNSCH PRN IV FLUSH SEE PROTOCOL TABLE 06/11/17 12:30 06/30/17 06:44 Enoxaparin Sodium (Lovenox Inj) 40 mg Q24H SQ 06/13/17 08:15 Future hold 07/06/17 08:47 Lorazepam (Ativan Inj) 0.5 mg Q6H PRN IV PUSH nausea/anxiety 06/13/17 14:45 07/02/17 04:09 Insulin Detemir (Levemir Inj) 30 units Q12HR SQ 06/18/17 09:00 07/06/17 08:45 Insulin Aspart (NovoLOG SUPPLEMENTAL SCALE) 1 ACHS SLIDING SCALE SQ 06/18/17 08:00 07/06/17 08:45 Hydromorphone HCl (Dilaudid Pf Inj) 1 mg Q2H PRN IV PUSH pain 3-10 06/19/17 09:00 07/06/17 08:41 Sodium Chloride 11 meq/Sodium Acetate 59 meq/ Potassium Chloride 120 meq/ Sodium Phosphate 40 meq/Magnesium Chloride 10 meq/ Calcium Chloride 9 meq/ Multivitamins 10 ml/Folic Acid 1 mg/Amino Acids/ Dextrose 2,124.1437 ml @ 75 mls/hr Q24H IV-CENTRAL 06/19/17 20:00 07/05/17 21:33 Docusate Sodium (Colace) 100 mg BID PO 06/21/17 21:00 07/06/17 08:47 Furosemide (Lasix Inj) 20 mg BID@,18 IV PUSH 06/22/17 09:00 07/06/17 10:05 Duloxetine HCl (Cymbalta Dr) 30 mg DAILY PO 07/01/17 09:00 07/06/17 08:47 Lorazepam (Ativan Inj) 0.25 mg TID IV 07/03/17 09:00 07/05/17 18:11 Fentanyl (Duragesic 100 Mcg Patch.72 Hr) 1 patch Q3D T-DERMAL 07/03/17 12:00 07/03/17 12:58 Metoprolol Tartrate (Lopressor Inj) 5 mg Q4H PRN IV PUSH heart rate sustained above 120 07/05/17 12:00 07/06/17 03:08 Metoprolol Tartrate (Lopressor) 100 mg Q12HR G-TUBE 07/05/17 09:00 07/06/17 08:52 Objective Remarks GENERAL: chronically ill female sitting up in bed, appears fatigued SKIN: Warm and dry. HEAD: Normocephalic. EYES: No injection or drainage. NECK: Supple, trachea midline. CARDIOVASCULAR: +S1/S2, tachy RESPIRATORY: anterior zurita clear. GASTROINTESTINAL: Abdomen distended, G-tube in place to LIWS EXTREMITIES: No cyanosis NEUROLOGICAL: awake but sleepy. normal speech. Assessment/Plan Assessment Ms. Vicente is a 52-year-old female with a 2.5 month history of progressive epigastric pain, nausea, vomiting and abdominal distension. She was noted on imaging studies on 06/10/2017 to have omental thickening and ascites. Omental biopsy revealed findings highly concerning for a high-grade adenocarcinoma with signet cell features. An EGD ensued and the EGD revealed an antral mass involving the gastric wall associated with ulceration and thickening. 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 Her major complaints are that of abdominal distension, pain and nausea. Plan 1. Metastatic Gastric Ca with peritoneal carcinomatosis. s/p 2 C FOLFOX. no clinical improvement. s/p simulation for XRT to gastric outlet obstruction on , expected start date of XRT is 07/07. 2. Gastric outlet obstruction: continues to require LIWS. receiving TPN and very limited oral intake. 3. Pain: controlled with Fentanyl patch + IV Dilaudid. Attending Statement The exam, history, and the medical decision-making described in the above note were completed with the assistance of the mid-level provider. I reviewed and agree with the findings presented. I attest that I had a [id number] encounter with the patient on the same day, and personally performed and documented my assessment and findings in the medical record. Metastatic gastric cancer with GOO. No improvement to FOLFOX. XRT to start tomorrow. Aline Thao Jul 06, 2017 10:21 Sahara Mckinnon MD Jul 06, 2017 23:54
[2017-07-06] MEDS: ONDANSETRON HCL 4 MG/2 ML VIAL IV PUSH PRN (10:59)
[2017-07-06] MEDS: LORazepam 2 MG/ML VIAL IV SCH ×3 (11:04→18:15)
[2017-07-06] MEDS: fentaNYL 100 MCG/HR PATCH T-DERMAL SCH (11:58)
[2017-07-06] MEDS: CETIRIZINE HCL 10 MG TAB PO SCH (11:58)
[2017-07-06] MEDS: ASPIRIN EC 81 MG TABEC PO SCH (21:00)
[2017-07-06 21:08] LABS: BLOOD, URINE NEG (NEG); COMMENT (UR) CULT NOT INDICATED; CULTURE IF INDICATED CULT NOT INDICATED; GLUCOSE,URINE NEG (NEG); KETONE, URINE NEG (NEG); MUCUS URINE FEW /lpf (OCC); NITRITE,URINE NEG (NEG); PH, URINE 5.5 (5.0-8.5); SQUAMOUS EPITHELIAL CELL URINE 2 /hpf (0-5); URINE COLOR YELLOW (YELLW/STRAW)
[2017-07-06] MEDS: FAT EMULSION 20% INJ 250 ML (@10 mls/hr) IV-CENTRAL SCH (21:20)
[2017-07-06] MEDS: [UNRECOGNIZED DRUG - OTHER] IV-CENTRAL SCH ×9 (21:25)
[2017-07-06] MEDS: SODIUM CHLORIDE IV-CENTRAL SCH ×9 (21:25)
[2017-07-06] MEDS: SODIUM ACETATE IV-CENTRAL SCH ×9 (21:25)
[2017-07-07] VITALS (7 sets, daily range): BP systolic 111–147; BP diastolic 76–87; PULSE 125–141; RESP 18; TEMP 97.4–99; O2SAT 94–97
[2017-07-07] MEDS: METOPROLOL TARTRATE 5 MG/5 ML VIAL IV PUSH PRN ×3 (00:38→16:06)
[2017-07-07] MEDS: HYDROmorphone HCL PF 2 MG/ML VIAL IV PUSH PRN ×4 (03:32→21:26)
[2017-07-07] MEDS: ONDANSETRON HCL 4 MG/2 ML VIAL IV PUSH PRN ×2 (03:36→21:02)
[2017-07-07] MEDS: SODIUM CHLORIDE 0.9% FLUSH 10 ML FLUSH IV FLUSH SCH ×3 (08:39→20:54)
[2017-07-07] MEDS: PANTOPRAZOLE SODIUM 40 MG VIAL IV PUSH SCH ×2 (08:58→20:54)
[2017-07-07] MEDS: INSULIN ASPART SUPPLEMENTAL SCALE SQ SCH ×4 (08:59→21:12)
[2017-07-07] MEDS: ENOXAPARIN SODIUM 40 MG/0.4 ML SYRINGE SQ SCH (08:59)
[2017-07-07] MEDS: DOCUSATE SODIUM 100 MG CAP PO SCH ×2 (08:59→20:54)
[2017-07-07] MEDS: FUROSEMIDE 20 MG/2 ML VIAL IV PUSH SCH ×2 (08:59→17:10)
[2017-07-07] MEDS: DULoxetine HCl DR 30 MG CAP PO SCH (08:59)
[2017-07-07] MEDS: LORazepam 2 MG/ML VIAL IV SCH ×3 (08:59→18:05)
[2017-07-07] MEDS: METOPROLOL TARTRATE 100 MG TAB G-TUBE SCH ×3 (08:59→20:54)
[2017-07-07] MEDS: CETIRIZINE HCL 10 MG TAB PO SCH (08:59)
[2017-07-07] MEDS: INSULIN DETEMIR 100 UNITS/ML VIAL SQ SCH ×2 (09:00→21:12)
[2017-07-07] MEDS ORDERED: KETOROLAC TROMETHAMINE 30 MG/ML (IVP) VIAL IV PUSH ONE (10:15)
--- NOTE | 2017-07-07 10:20 | HHI.PR ---
Subjective Remarks epigastric pain and tenderness. Objective Vitals in pain oriented heart reg lung diminished bases mouth dry epigastric tenderness ext no pitting. picc. Vital Signs Date Time Temp Pulse Resp B/P (MAP) Pulse Ox O2 Delivery O2 Flow Rate FiO2 07/07/17 08:42 Room Air 07/07/17 08:30 97.4 128 18 128/82 (97) 95 07/07/17 03:00 98.6 128 18 134/83 (100) 94 07/06/17 23:19 98.6 121 16 131/81 (98) 94 07/06/17 21:00 132 07/06/17 21:00 Room Air 07/06/17 20:00 98.6 130 16 147/83 (104) 96 07/06/17 15:29 98.5 122 18 118/78 (91) 96 07/06/17 11:46 98.1 117 18 128/84 (99) 95 Result Diagram: 07/04/17 0530 07/06/17 0625 Imaging Last Impressions Gastrostomy Tube Placement 06/16/17 0000 Signed Impressions: Service Date/Time: Friday, June 16, 2017 15:58 - CONCLUSION: Uncomplicated gastrostomy tube placement as above. Carl Lamar Jr., MD Chest X-Ray 06/14/17 0000 Signed Impressions: Service Date/Time: Wednesday, June 14, 2017 17:04 - CONCLUSION: Stable chest x-ray with a small to moderate size left pleural effusion with associated volume loss and/or consolidation. Chilango Shaw MD Abdomen X-Ray 06/14/17 0000 Signed Impressions: Service Date/Time: Wednesday, June 14, 2017 13:22 - CONCLUSION: 1. Nasogastric tube distal tip in the gastric body. 2. Stable small to moderate size left pleural effusion. Chilango Shaw MD Abdomen Ultrasound 06/14/17 0000 Signed Impressions: Service Date/Time: Wednesday, June 14, 2017 09:29 - CONCLUSION: Small volume of free fluid is present within the abdomen or pelvis. Chilango Shaw MD Lower Extremity Ultrasound 06/12/17 0000 Signed Impressions: Service Date/Time: Monday, June 12, 2017 14:04 - CONCLUSION: Normal examination. Ron Kim MD Abdomen/Pelvis CT 06/09/17 0000 Signed Impressions: Service Date/Time: Friday, June 09, 2017 12:50 - CONCLUSION: 1. Diffuse abdominal ascites. With omental thickening. Ascites could either be from cirrhotic changes or peritoneal carcinomatosis. 2. No findings to indicate bowel obstruction. 3. Small bilateral effusions with dependent atelectasis. Xavier Kellogg MD Paracentesis 06/04/17 0000 Signed Impressions: Service Date/Time: Sunday, June 04, 2017 14:57 - CONCLUSION: Uncomplicated CT Guided paracentesis with removal of 3.6 L of fluid. Sample was saved and sent to the lab for evaluation. Chilango Shaw MD Abdomen Biopsy CT 06/04/17 0000 Signed Impressions: Service Date/Time: Sunday, June 04, 2017 14:57 - CONCLUSION: Uncomplicated CT guided biopsy of the omentum. Chilango Shaw MD Liver Ultrasound 06/02/17 0000 Signed Impressions: Service Date/Time: Friday, June 02, 2017 23:21 - CONCLUSION: 1. Cirrhosis 2. Possible mass right lobe of the liver. MRI is recommended for further evaluation if clinically indicated. 3. Moderate ascites Mert Paige MD Cyst Biopsy Asp-Paracentesis US 05/31/17 0000 Signed Impressions: Service Date/Time: Wednesday, May 31, 2017 16:43 - CONCLUSION: Uncomplicated ultrasound guided paracentesis. Minimal fluid aspirated. 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 - Pt presented to the ED with complaints of worsening abdominal pain and distension. She states that she has been having issues with abd pain for the last 2 months. For the last 2 weeks she has been having increased generalized abd pain and distension which has been significantly worse over the last 2 days. - CT Abd/pelvis revealed ascites appears complex and new from 03/23/17. - She was previously seen in the ED on 03/[address] abd/pelvis at that time noted an 18mm lesion in the right lobe of the liver, with features favoring hemangioma. She was sent for followup as an outpt with GI. She had an MRI Abdomen W/O Contrast (05/13/17) with benign hemangioma in the caudate lobe of the liver corresponding to the lesion identified on CT otherwise normal examination. - Outpt workup with GI in April 2017 revealed positive ASMA, positive RACHELE, and RODRIGUEZ FibroSURE with fibrosis score of 0.04 (No fibrosis), Steatosis score of 0.78/S3 (marked or severe steatosis). Viral Hepatitis was negative. IgG subclasses were WNL, LKM Ab negative, AMA negative, Iron studies WNL, Ferritin 160 (slightly elevated), Ceruloplasmin WNL. Labs on 05/12/17 with AST 54, ALT 81, AlkPhos 92, Tbili 0.8 , DBili 0.2. autoimmune hepatitis was questioned. - Pt had diagnostic paracentesis on 05/31 with removal of 15cc of fluid - Cell count for the fluid noted WBC count 1657 - Fluid culture with no growth - cytology --> atypical epithelioid cells suspicious for malignancy - Repeat paracentesis 06/04/17 - 3,600ml of ascites removed - Ascitic Cell count: WBC 494, RBC 6525 - Fluid culture shows ngtd - cytology -->suspicious for malignant cells - Pt underwent Omental Biopsy (06/04/17) --> path suspicious for signet cell adenoca - EGD 06/11 --> antral ulcerated mass with near obstruction of outlet. 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 - Heme-Onc, Dr. Davis, is following. - She was started on palliative systemic therapy with FOLFOX to help debulk her tumor to relieve some of her gastric symptoms of obstruction - She received 2 cycles 06/12/2017, 06/26/17 - IR placed G tube on 06/16. removed NGT on 06/17 - PICC line placed 06/11 and pt is on TPN - G tube to gravity, G tube dependent - Pt seems to now be tolerating a small amount of PO intake, observe. Hopefully this continues to improve & pt is able to tolerate having her G-tube clamped for longer periods of time. - Pt is TPN dependent for nutritional support - Pt's blood sugar are now stable with NO basal insulin added to TPN; BID Levemir; SSI - On 06/23, G-tube site appeared infected but this has been improving. - Wound Culture (06/23) --> mixed anaerobs - IV Cefepime (06/23 - 06/29) and topical Bactroban (06/23 - 06/01) - Pt's pain being addressed with Fentanyl transdermal and prn IV Dilaudid - increase fentanyl to 125mcg q3d (06/29) - pt somewhat confused and groggy. decrease fentanyl to 100mcg (07/03), -scheduled ativan to 0.25mg TID (previously 0.5mg TID) - Pt seen by Radiation Oncology (07/02), Dr. Blankenship - Dr. Blankenship will arrange for Palliative Radiation for this week. - Daily PT - DNR - DVT prophylaxis with Lovenox - hold lasix. pt feels dry...check bmp. -attempted conversion of iv to po lopressor again... -cont current tpn and basal/ssi rx.. -dose toradol for pain (2) Sinus tachycardia ICD Codes: R00.0 - Tachycardia, unspecified Status: Acute Plan: - Pt developed sinus tachycardia with rates into the 140's, felt to likely be secondary to physiological response related to her malignant/obstructive process and stopping her chronic bb. - IV metoprolol for rate control - metoprolol PO attempted- patient's HR did not respond (3) Abdominal pain ICD Codes: R10.9 - Unspecified abdominal pain Status: Acute Plan: - See above. (4) Ascites ICD Codes: R18.8 - Other ascites Status: Acute Plan: - See above - Pts last paracentesis was on 06/04 with removal of 3600cc of ascetic fluid - continue IV Lasix - At this time pt does have some ascites that could be drained but she wants to hold off on repeat paracentesis as the last one was very painful per the pt - Will readdress in the next 1-2 days. (5) Hypertension ICD Codes: I10 - Essential (primary) hypertension Status: Chronic Plan: - See above (6) Hyperlipidemia ICD Codes: E78.5 - Hyperlipidemia, unspecified Status: Chronic Plan: - Statin was held as an outpt (7) CAD (coronary artery disease) ICD Codes: I25.10 - Atherosclerotic heart disease of [place] coronary artery without angina pectoris Status: Chronic Plan: - Pt with hx of CAD and NSTEMI in 2011 s/p stent in the RCA (8) Tobacco abuse ICD Codes: Z72.0 - Tobacco use Status: Chronic Problem Qualifiers (1) Abdominal pain: Qualified Codes: R10.84 - Generalized abdominal pain (2) Ascites: Qualified Codes: R18.8 - Other ascites (3) Hypertension: Qualified Codes: I10 - Essential (primary) hypertension Zach Briceno MD Jul 07, 2017 10:20
[2017-07-07] MEDS: SIMETHICONE 125 MG CHEWABLE TAB PO SCH ×3 (11:19→21:13)
--- NOTE | 2017-07-07 15:08 | EKG ---
Date Performed: 07/07/2017 Time Performed: 03:04:50 PTAGE: 52 years EKG: Sinus tachycardia. Normal ECG except for rate NO PREVIOUS TRACING DOCTOR: Jim Turner Interpretating Date/Time 07/07/2017 15:07:42
[2017-07-07] MEDS: ASPIRIN EC 81 MG TABEC PO SCH (20:53)
[2017-07-07] MEDS: [UNRECOGNIZED DRUG - OTHER] IV-CENTRAL SCH ×9 (20:56)
[2017-07-07] MEDS: SODIUM CHLORIDE IV-CENTRAL SCH ×9 (20:56)
[2017-07-07] MEDS: SODIUM ACETATE IV-CENTRAL SCH ×9 (20:56)
[2017-07-07] MEDS: FAT EMULSION 20% INJ 250 ML (@10 mls/hr) IV-CENTRAL SCH (20:56)
[2017-07-08] VITALS (8 sets, daily range): BP systolic 121–146; BP diastolic 77–87; PULSE 72–138; RESP 16–20; TEMP 97.5–98.6; O2SAT 93–98
[2017-07-08] MEDS: METOPROLOL TARTRATE 5 MG/5 ML VIAL IV PUSH PRN ×2 (00:05→04:27)
[2017-07-08] MEDS: LORazepam 2 MG/ML VIAL IV PUSH PRN (00:19)
[2017-07-08] MEDS: SIMETHICONE 125 MG CHEWABLE TAB PO SCH ×2 (04:27→10:47)
[2017-07-08] MEDS: HYDROmorphone HCL PF 2 MG/ML VIAL IV PUSH PRN ×5 (04:50→21:04)
[2017-07-08 05:50] LABS: BICARBONATE 30.1 MEQ/L (21.0-32.0); MAGNESIUM 1.9 MG/DL (1.5-2.5); POTASSIUM 3.9 MEQ/L (3.5-5.1)
[2017-07-08] MEDS: INSULIN ASPART SUPPLEMENTAL SCALE SQ SCH ×5 (08:00→20:09)
--- NOTE | 2017-07-08 08:49 | HHI.PR ---
Subjective Remarks miserable. alot of issues with the g tube. unable to tolerate clamping for meds crying...pt unable to tolerate radiation yesterday and she is not very interested in going today. Objective Vitals crying heart reg lung diminished ext no edema peg. picc. Vital Signs Date Time Temp Pulse Resp B/P (MAP) Pulse Ox O2 Delivery O2 Flow Rate FiO2 07/08/17 04:32 98.6 134 20 146/83 (104) 96 07/08/17 00:03 98.5 130 16 129/87 (101) 93 07/07/17 20:50 95 Room Air 07/07/17 20:00 98.3 141 18 147/83 (104) 95 07/07/17 20:00 140 07/07/17 15:59 98.6 136 18 111/76 (88) 96 07/07/17 13:30 97 07/07/17 11:16 99.0 125 18 143/87 (105) 97 Result Diagram: 07/04/17 0530 07/08/17 0430 Imaging Last Impressions Gastrostomy Tube Placement 06/16/17 0000 Signed Impressions: Service Date/Time: Friday, June 16, 2017 15:58 - CONCLUSION: Uncomplicated gastrostomy tube placement as above. Carl Lamar Jr., MD Chest X-Ray 06/14/17 0000 Signed Impressions: Service Date/Time: Wednesday, June 14, 2017 17:04 - CONCLUSION: Stable chest x-ray with a small to moderate size left pleural effusion with associated volume loss and/or consolidation. Chilango Shaw MD Abdomen X-Ray 06/14/17 0000 Signed Impressions: Service Date/Time: Wednesday, June 14, 2017 13:22 - CONCLUSION: 1. Nasogastric tube distal tip in the gastric body. 2. Stable small to moderate size left pleural effusion. Chilango Shaw MD Abdomen Ultrasound 06/14/17 0000 Signed Impressions: Service Date/Time: Wednesday, June 14, 2017 09:29 - CONCLUSION: Small volume of free fluid is present within the abdomen or pelvis. Chilango Shaw MD Lower Extremity Ultrasound 06/12/17 0000 Signed Impressions: Service Date/Time: Monday, June 12, 2017 14:04 - CONCLUSION: Normal examination. Ron Kim MD Abdomen/Pelvis CT 06/09/17 0000 Signed Impressions: Service Date/Time: Friday, June 09, 2017 12:50 - CONCLUSION: 1. Diffuse abdominal ascites. With omental thickening. Ascites could either be from cirrhotic changes or peritoneal carcinomatosis. 2. No findings to indicate bowel obstruction. 3. Small bilateral effusions with dependent atelectasis. Xavier Kellogg MD Paracentesis 06/04/17 0000 Signed Impressions: Service Date/Time: Sunday, June 04, 2017 14:57 - CONCLUSION: Uncomplicated CT Guided paracentesis with removal of 3.6 L of fluid. Sample was saved and sent to the lab for evaluation. Chilango Shaw MD Abdomen Biopsy CT 06/04/17 0000 Signed Impressions: Service Date/Time: Sunday, June 04, 2017 14:57 - CONCLUSION: Uncomplicated CT guided biopsy of the omentum. Chilango Shaw MD Liver Ultrasound 06/02/17 0000 Signed Impressions: Service Date/Time: Friday, June 02, 2017 23:21 - CONCLUSION: 1. Cirrhosis 2. Possible mass right lobe of the liver. MRI is recommended for further evaluation if clinically indicated. 3. Moderate ascites Mert Paige MD Cyst Biopsy Asp-Paracentesis US 05/31/17 0000 Signed Impressions: Service Date/Time: Wednesday, May 31, 2017 16:43 - CONCLUSION: Uncomplicated ultrasound guided paracentesis. Minimal fluid aspirated. 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 - Pt presented to the ED with complaints of worsening abdominal pain and distension. She states that she has been having issues with abd pain for the last 2 months. For the last 2 weeks she has been having increased generalized abd pain and distension which has been significantly worse over the last 2 days. - CT Abd/pelvis revealed ascites appears complex and new from 03/23/17. - She was previously seen in the ED on 03/[address] abd/pelvis at that time noted an 18mm lesion in the right lobe of the liver, with features favoring hemangioma. She was sent for followup as an outpt with GI. She had an MRI Abdomen W/O Contrast (05/13/17) with benign hemangioma in the caudate lobe of the liver corresponding to the lesion identified on CT otherwise normal examination. - Outpt workup with GI in April 2017 revealed positive ASMA, positive RACHELE, and RODRIGUEZ FibroSURE with fibrosis score of 0.04 (No fibrosis), Steatosis score of 0.78/S3 (marked or severe steatosis). Viral Hepatitis was negative. IgG subclasses were WNL, LKM Ab negative, AMA negative, Iron studies WNL, Ferritin 160 (slightly elevated), Ceruloplasmin WNL. Labs on 05/12/17 with AST 54, ALT 81, AlkPhos 92, Tbili 0.8 , DBili 0.2. autoimmune hepatitis was questioned. - Pt had diagnostic paracentesis on 05/31 with removal of 15cc of fluid - Cell count for the fluid noted WBC count 1657 - Fluid culture with no growth - cytology --> atypical epithelioid cells suspicious for malignancy - Repeat paracentesis 06/04/17 - 3,600ml of ascites removed - Ascitic Cell count: WBC 494, RBC 6525 - Fluid culture shows ngtd - cytology -->suspicious for malignant cells - Pt underwent Omental Biopsy (06/04/17) --> path suspicious for signet cell adenoca - EGD 06/11 --> antral ulcerated mass with near obstruction of outlet. 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 - Heme-Onc, Dr. Davis, is following. - She was started on palliative systemic therapy with FOLFOX to help debulk her tumor to relieve some of her gastric symptoms of obstruction - She received 2 cycles 06/12/2017, 06/26/17 - IR placed G tube on 06/16. removed NGT on 06/17 - PICC line placed 06/11 and pt is on TPN - G tube to gravity, G tube dependent - Pt seems to now be tolerating a small amount of PO intake, observe. Hopefully this continues to improve & pt is able to tolerate having her G-tube clamped for longer periods of time. - Pt is TPN dependent for nutritional support - Pt's blood sugar are now stable with NO basal insulin added to TPN; BID Levemir; SSI - On 06/23, G-tube site appeared infected but this has been improving. - Wound Culture (06/23) --> mixed anaerobs - IV Cefepime (06/23 - 06/29) and topical Bactroban (06/23 - 06/01) - Pt's pain being addressed with Fentanyl transdermal and prn IV Dilaudid - increase fentanyl to 125mcg q3d (06/29) - pt somewhat confused and groggy. decrease fentanyl to 100mcg (07/03), -scheduled ativan to 0.25mg TID (previously 0.5mg TID) - Pt seen by Radiation Oncology (07/02), Dr. Blankenship - Dr. Blankenship will arrange for Palliative Radiation for this week. - Daily PT - DNR - DVT prophylaxis with Lovenox - hold lasix. pt feels dry...check bmp. - unable to tolerate meds per peg...can't tolerate clamping peg. -cont current tpn and basal/ssi rx.. -overall pt appears very miserable.....I think we should readdress goals and discuss hospice options again. will discuss with oncology. (2) Sinus tachycardia ICD Codes: R00.0 - Tachycardia, unspecified Status: Acute Plan: - Pt developed sinus tachycardia with rates into the 140's, felt to likely be secondary to physiological response related to her malignant/obstructive process and stopping her chronic bb. - IV metoprolol for rate control - metoprolol PO attempted- patient's HR did not respond (3) Abdominal pain ICD Codes: R10.9 - Unspecified abdominal pain Status: Acute Plan: - See above. (4) Ascites ICD Codes: R18.8 - Other ascites Status: Acute Plan: - See above - Pts last paracentesis was on 06/04 with removal of 3600cc of ascetic fluid - continue IV Lasix - At this time pt does have some ascites that could be drained but she wants to hold off on repeat paracentesis as the last one was very painful per the pt - Will readdress in the next 1-2 days. (5) Hypertension ICD Codes: I10 - Essential (primary) hypertension Status: Chronic Plan: - See above (6) Hyperlipidemia ICD Codes: E78.5 - Hyperlipidemia, unspecified Status: Chronic Plan: - Statin was held as an outpt (7) CAD (coronary artery disease) ICD Codes: I25.10 - Atherosclerotic heart disease of [place] coronary artery without angina pectoris Status: Chronic Plan: - Pt with hx of CAD and NSTEMI in 2010 s/p stent in the RCA (8) Tobacco abuse ICD Codes: Z72.0 - Tobacco use Status: Chronic Problem Qualifiers (1) Abdominal pain: Qualified Codes: R10.84 - Generalized abdominal pain (2) Ascites: Qualified Codes: R18.8 - Other ascites (3) Hypertension: Qualified Codes: I10 - Essential (primary) hypertension Zach Briceno MD Jul 08, 2017 08:49
[2017-07-08] MEDS: LORazepam 2 MG/ML VIAL IV SCH ×3 (09:00→18:23)
[2017-07-08] MEDS: DOCUSATE SODIUM 100 MG CAP PO SCH (09:00)
[2017-07-08] MEDS: CETIRIZINE HCL 10 MG TAB PO SCH (09:00)
[2017-07-08] MEDS: SODIUM CHLORIDE 0.9% FLUSH 10 ML FLUSH IV FLUSH SCH ×3 (09:00→20:11)
[2017-07-08] MEDS: DULoxetine HCl DR 30 MG CAP PO SCH (09:00)
--- NOTE | 2017-07-08 10:38 | PD.ONC.PN ---
Subjective Subjective Remarks Afebrile overnight. Patient resting in bed. Was not able to complete radiation yesterday due to inability to lay flat from pain, despite pre-medication just prior to transport. She also had leaking G-tube site during radiation as her tube was clamped for transport. This was also very distressing to the patient. Objective Data Date Time Temp Pulse Resp B/P (MAP) Pulse Ox O2 Delivery O2 Flow Rate FiO2 07/08/17 09:20 Room Air 07/08/17 04:32 98.6 134 20 146/83 (104) 96 07/08/17 00:03 98.5 130 16 129/87 (101) 93 07/07/17 20:50 95 Room Air 07/07/17 20:00 98.3 141 18 147/83 (104) 95 07/07/17 20:00 140 07/07/17 15:59 98.6 136 18 111/76 (88) 96 07/07/17 13:30 97 07/07/17 11:16 99.0 125 18 143/87 (105) 97 07/08/17 07/08/17 07/08/17 07:00 15:00 23:00 Output Total 1250 ml Balance -1250 ml Result Diagram: 07/04/17 0530 07/08/17 0430 Laboratory Results Laboratory Tests Test 07/08/17 04:30 Blood Urea Nitrogen 23 MG/DL Creatinine 0.66 MG/DL Random Glucose 189 MG/DL Calcium Level 8.8 MG/DL Magnesium Level 1.9 MG/DL Sodium Level 134 MEQ/L Potassium Level 3.9 MEQ/L Chloride Level 99 MEQ/L Carbon Dioxide Level 30.1 MEQ/L Anion Gap 5 MEQ/L Estimat Glomerular Filtration Rate 94 ML/MIN Administered Medications Medications (Trade) Dose Ordered Sig/Nelda Route PRN Reason Start Time Stop Time Status Last Admin Dose Admin Sodium Chloride (NS Flush) 2 ml UNSCH PRN IV FLUSH FLUSH AFTER USING IV ACCESS 05/31/17 16:00 06/28/17 03:49 Sodium Chloride (NS Flush) 2 ml BID IV FLUSH 05/31/17 21:00 07/07/17 20:54 Aspirin (Ecotrin Ec) 81 mg HS PO 05/31/17 21:00 07/01/17 19:59 Miscellaneous (Pill Splitter) 1 ea UNSCH PRN OTHER SEE LABEL COMMENTS 05/31/17 21:00 06/12/17 09:05 Ondansetron HCl (Zofran Inj) 4 mg Q4H PRN IV PUSH NAUSEA 06/07/17 21:00 07/07/17 21:02 Pantoprazole Sodium (Protonix Inj) 40 mg Q12H IV PUSH 06/08/17 21:00 07/07/17 20:54 Fat Emulsion Intravenous 250 ml @ 10 mls/hr Q24H IV-CENTRAL 06/10/17 20:00 07/07/17 20:56 Phenol (Chloraseptic [place]) 2 spray Q2H PRN OROPHARYNG throat pain 06/11/17 12:00 06/12/17 02:47 Sodium Chloride (NS Flush) See Protocol DAILY IV FLUSH 06/12/17 09:00 07/06/17 08:52 Heparin Sodium (Porcine) (Heparin Central Flush) See Protocol DAILY IV FLUSH 06/12/17 09:00 07/03/17 10:15 Heparin Sodium (Porcine) (Heparin Central Flush) See Protocol UNSCH PRN IV FLUSH SEE PROTOCOL TABLE 06/11/17 12:30 06/30/17 06:44 Sodium Chloride (NS Flush) UNSCH PRN IV FLUSH SEE PROTOCOL TABLE 06/11/17 12:30 06/30/17 06:44 Enoxaparin Sodium (Lovenox Inj) 40 mg Q24H SQ 06/13/17 08:15 Future hold 07/07/17 08:59 Lorazepam (Ativan Inj) 0.5 mg Q6H PRN IV PUSH nausea/anxiety 06/13/17 14:45 07/08/17 00:19 Insulin Aspart (NovoLOG SUPPLEMENTAL SCALE) 1 ACHS SLIDING SCALE SQ 06/18/17 08:00 07/07/17 21:12 Sodium Chloride 11 meq/Sodium Acetate 59 meq/ Potassium Chloride 120 meq/ Sodium Phosphate 40 meq/Magnesium Chloride 10 meq/ Calcium Chloride 9 meq/ Multivitamins 10 ml/Folic Acid 1 mg/Amino Acids/ Dextrose 2,124.1437 ml @ 75 mls/hr Q24H IV-CENTRAL 06/19/17 20:00 07/07/17 20:56 Docusate Sodium (Colace) 100 mg BID PO 06/21/17 21:00 07/07/17 20:54 Duloxetine HCl (Cymbalta Dr) 30 mg DAILY PO 07/01/17 09:00 07/07/17 08:59 Lorazepam (Ativan Inj) 0.25 mg TID IV 07/03/17 09:00 07/07/17 18:05 Fentanyl (Duragesic 100 Mcg Patch.72 Hr) 1 patch Q3D T-DERMAL 07/03/17 12:00 07/06/17 11:58 Cetirizine HCl (ZyrTEC) 10 mg DAILY PO 07/06/17 10:45 07/07/17 08:59 Hydromorphone HCl (Dilaudid Pf Inj) 1 mg Q2H PRN IV PUSH pain 3-10 07/07/17 03:30 07/08/17 04:50 Simethicone (Phazyme Chew) 125 mg Q8HR PO 07/07/17 10:15 07/08/17 04:27 Insulin Detemir (Levemir Inj) 35 units Q12HR SQ 07/07/17 21:00 07/07/17 21:12 Objective Remarks GENERAL: Chronically ill appearing female, supine in bed. SKIN: Warm and dry. HEAD: Normocephalic. EYES: No injection or drainage. NECK: Supple, trachea midline. CARDIOVASCULAR: +S1/S2 RESPIRATORY: anterior zurita with occasional rhonchi. GASTROINTESTINAL: Abdomen distended. G tube in place, to LIWS EXTREMITIES: No cyanosis NEUROLOGICAL: awake and alert, normal speech. moving all extremities. Assessment/Plan Assessment Ms. Vicente is a 52-year-old female with a 2.5 month history of progressive epigastric pain, nausea, vomiting and abdominal distension. She was noted on imaging studies on 06/10/2017 to have omental thickening and ascites. Omental biopsy revealed findings highly concerning for a high-grade adenocarcinoma with signet cell features. An EGD ensued and the EGD revealed an antral mass involving the gastric wall associated with ulceration and thickening. 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 Her major complaints are that of abdominal distension, pain and nausea. Plan 1. Metastatic Gastric Ca with peritoneal carcinomatosis. s/p 2 C FOLFOX. no clinical improvement. attempted to start radiation yesterday 07/07 was unsuccessful d/t inability to lay flat, and unable tolerate being off G-tube suction for that length of time. Patient reporting she does not want to try radiation again today. We discussed her clinical course up to this point. We discussed waiting a day and trying radiation again tomorrow. We also discussed hospice/comfort based care. Ultimately the patient decided she would like to go home with hospice. consult to hospice placed. Attending Statement The exam, history, and the medical decision-making described in the above note were completed with the assistance of the mid-level provider. I reviewed and agree with the findings presented. I attest that I had a [id number] encounter with the patient on the same day, and personally performed and documented my assessment and findings in the medical record.52 yoF with metastatic gastric cancer s/p systemic chemotherapy with no improvement. Inpatient with TPN and PEG tube to suction. Unable to lay flat for radiation therapy. Requiring sedating amount of pain medications to control symptoms. Hospice/palliative care. Case discussed with primary oncologist Dr. Davis. Aline Thao Jul 08, 2017 10:38 Sahara Mckinnon MD Jul 09, 2017 01:48
[2017-07-08] MEDS: METOPROLOL TARTRATE 5 MG/5 ML VIAL IV PUSH SCH ×4 (10:45→20:10)
[2017-07-08] MEDS: INSULIN DETEMIR 100 UNITS/ML VIAL SQ SCH (10:45)
[2017-07-08] MEDS: PANTOPRAZOLE SODIUM 40 MG VIAL IV PUSH SCH ×2 (10:46→20:10)
[2017-07-08] MEDS: ENOXAPARIN SODIUM 40 MG/0.4 ML SYRINGE SQ SCH (10:46)
[2017-07-08] MEDS: ONDANSETRON HCL 4 MG/2 ML VIAL IV PUSH PRN (21:04)
== END 2017-07-08 21:30 | disposition hospice, inpatient (51) | DRG 375 ==
LOC: NEPD 11:09 → NEDA 16:13 → N05B 20:37 → HCIN 06-11 21:39
PROVIDERS: ADMIT Hospitalist; ATTEND Hospitalist
PROC: 0W9G3ZX Drainage of Peritoneal Cavity, Percutaneous Approach, Diagnostic (ICD-10-PCS; 2017-05-31)
PROC: 0W9G3ZX Drainage of Peritoneal Cavity, Percutaneous Approach, Diagnostic (ICD-10-PCS; 2017-06-04)
PROC: 0DBU3ZX Excision of Omentum, Percutaneous Approach, Diagnostic (ICD-10-PCS; 2017-06-04)
PROC: 0DB68ZX Excision of Stomach, Via Natural or Artificial Opening Endoscopic, Diagnostic (ICD-10-PCS; principal; 2017-06-10 10:55)
PROC: 0DH63UZ Insertion of Feeding Device into Stomach, Percutaneous Approach (ICD-10-PCS; 2017-06-16)
PROC: 3E03305 Introduction of Other Antineoplastic into Peripheral Vein, Percutaneous Approach (ICD-10-PCS; 2017-07-02)
DX: C16.3 Malignant neoplasm of pyloric antrum (principal); C78.6 Secondary malignant neoplasm of retroperitoneum and peritoneum; R18.0 Malignant ascites; K56.699 Other intestinal obstruction unspecified as to partial versus complete obstruction; J90 Pleural effusion, not elsewhere classified; E46 Unspecified protein-calorie malnutrition; D68.9 Coagulation defect, unspecified; C79.89 Secondary malignant neoplasm of other specified sites; K76.6 Portal hypertension; K94.23 Gastrostomy malfunction; K75.81 Nonalcoholic steatohepatitis (NASH); I10 Essential (primary) hypertension; I25.2 Old myocardial infarction; I25.10 Atherosclerotic heart disease of native coronary artery without angina pectoris; E78.5 Hyperlipidemia, unspecified; F17.210 Nicotine dependence, cigarettes, uncomplicated; Z95.5 Presence of coronary angioplasty implant and graft; K21.9 Gastro-esophageal reflux disease without esophagitis; Z87.11 Personal history of peptic ulcer disease; R73.03 Prediabetes; Z80.1 Family history of malignant neoplasm of trachea, bronchus and lung; G89.3 Neoplasm related pain (acute) (chronic); Z80.0 Family history of malignant neoplasm of digestive organs; R00.0 Tachycardia, unspecified; D18.03 Hemangioma of intra-abdominal structures; E86.0 Dehydration; F41.9 Anxiety disorder, unspecified; K75.4 Autoimmune hepatitis; Z66 Do not resuscitate; K74.60 Unspecified cirrhosis of liver
CPT/HCPCS: 36569; 49083; 49180; 49440; 71010; 71020; 74000; 74176; 74177; 76705; 76937; 77012; 80048; 80053; 80076; 80307; 81001; 82042; 82105; 82150; 82378; 82945; 82948; 83516; 83605; 83615; 83690; 83735; 84100; 84155; 84157; 84436; 84443; 84478; 84484; 85007; 85025; 85027; 85610; 85730; 86038; 86039; 86160; 86225; 86235; 86255; 86300; 86301; 86304; 86431; 87015; 87040; 87070; 87076; 87185; 87205; 88305; 88312; 88341; 88342; 89051; 93005; 93306; 93970; 93975; 96372; 99151; 99152; 99153; C1729; C9113; J0500; J0640; J0692; J0744; J1100; J1170; J1626; J1642; J1644; J1650; J1815; J1885; J1940; J1956; J2060; J2212; J2250; J2270; J2405; J2765; J2997; J3010; J3480; J7030; J7040; J7060; J9190; J9263; P9047; Q0169; Q9963; Q9967